=== PATIENT | female | born 1940 | race Caucasian/White ===

== ENCOUNTER 2017-08-06 23:10 | Emergency (ER) | payer OTHER, MEDICARE, SELFPAY ==
[2017-08-06 23:10] VITALS: BP 151/78; PULSE 86; RESP 16; TEMP 36.6; O2SAT 95; BMI 34.2
--- NOTE | 2017-08-06 23:36 | RAD_ITS ---
XR Shoulder Min 2 Views INDICATION: right shoulder pain after fall COMPARISON: None TECHNIQUE: 2 views of the right shoulder FINDINGS: Glenohumeral relationship appears preserved. Degenerative changes are noted at the acromioclavicular joint with osteophyte formation. The clavicle is intact. RAD/Shoulder min 2 Views IMPRESSION: Degenerative changes. No evidence of acute fracture or dislocation. at 0005 Reported and signed by: Karen Shell MD Electronically Signed: Karen Shell MD at 23:04 EST Tel , Service support ,
--- NOTE | 2017-08-06 23:40 | RAD_ITS ---
XR Knee Complete 4 Views or More INDICATION: right knee pain after fall COMPARISON: None TECHNIQUE: 4 views of the right knee FINDINGS: Joint spaces are decreased. Marginal osteophytes are noted. No evidence of fracture or dislocation. RAD/Knee 4 or More Views IMPRESSION: Degenerative changes. No evidence of fracture or dislocation. at 0005 Reported and signed by: Karen Shell MD Electronically Signed: Karen Shell MD at 23:03 EST Tel , Service support ,
--- NOTE | 2017-08-07 00:25 | ED.DCSUM_ITS ---
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 Patient continued to work the next several hours of her shift. She is complaining of mild pain to the right shoulder and anterior right knee. She denies loss of consciousness or headache. She does not take anticoagulants. Physical Examination: Vital signs are gross unremarkable. Head neck examination was no external sign of trauma. Heart is regular rate and rhythm. Lung sounds are clear. Abdomen is soft and nontender. Upper extremity examination reveals mild tenderness throughout the right shoulder region with normal range of motion. There is small abrasion is noted to the posterior shoulder. Strong distal pulses are noted throughout. Lower extremity examination reveals abrasion over the anterior right knee. Full range of motion is noted. No significant effusion is present. Test Results: Right shoulder x-rays reveal degenerative changes. No acute fracture. Right knee x-rays reveal degenerative changes. No fracture. Emergency Department Course and Treatment: Test results were discussed with the patient. She will follow-up with [facility]. Treatment Plan: [] Disposition: Discharge Impression: 1. Mechanical fall 2. Right shoulder contusion 3. Right knee contusion This note was generated with Caipiaobao dictation software. It may contain incorrect words, spelling, and punctuation that were not noted in review of the chart prior to signing ED Disposition - Plan for ED Patient: Disposition: Home or Assisted Living Chief Complaint: Fall Instructions: ED Contusion Lower Ext, ED Mechanical Fall, ED Contusion Shoulder Referrals: [facility] [GROUP OF PHYSICIANS] - 3-5 Days
--- NOTE | 2017-08-07 00:25 | ED.DEP ---
ED Disposition - Plan for ED Patient: Disposition: Home or Assisted Living Chief Complaint: Fall Instructions: ED Mechanical Fall, ED Contusion Shoulder, ED Contusion Lower Ext Referrals: [facility] [GROUP OF PHYSICIANS] - 3-5 Days
[2017-08-07 00:53] VITALS: BP 177/81; PULSE 64; RESP 16; O2SAT 95
== END 2017-08-07 00:53 | disposition home or self-care (01) ==
PROVIDERS: Emergency Provider Emergency Medicine; Family Provider Internal Medicine; PCP Internal Medicine
DX: S40.011A Contusion of right shoulder, initial encounter (principal); S80.01XA Contusion of right knee, initial encounter; W18.09XA Striking against other object with subsequent fall, initial encounter; Y93.89 Activity, other specified; Y92.238 Other place in hospital as the place of occurrence of the external cause; Y99.0 Civilian activity done for income or pay; Z79.899 Other long term (current) drug therapy
CPT/HCPCS: 73030; 73564; 99282

== ENCOUNTER → 2018-11-01 10:20 | Outpatient (CLI) | payer MEDICARE, OTHER, SELFPAY ==
[2018-10-19 15:25] VITALS: BMI 34.2
[2018-11-01 12:35] LABS: Absolute Lymphocyte Count 1.82 X10^3/ul (0.83-4.51); Absolute Neutrophil Count 3.4 X10^3/uL (2.0-7.7); Basophil# 0.03 X10^3/uL; Basophil% 0.5 % (0-1); Eosinophil# 0.08 X10^3/uL; Eosinophils% 1.4 % (0-5); Hematocrit 40.7 % (37-47); Hemoglobin 13.1 g/dl (12.0-15.0); Lymphocyte # 1.82 X10^3/ul (4.0); Mean Corp Hgb Conc 32.2 g/gl (32-36); Mean Corpuscular Hgb 28.6 pg (27.0-32.0); Mean Corpuscular Volume 88.9 fL (81-99); Mean Platelet Vol. 10.6 fl (6.2-12.0); Monocyte# 0.55 X10^3/uL; Monocyte% 9.4 % (0-10); Neutrophil # 3.39 X10^3/uL (2.7-7.7); Neutrophil % 57.7 % (47-70); Platelet Count 235 K/mm3 (150-450); RBC Distribution Width CV 14.8 % (11.6-14.6); RBC Distribution Width SD 47.9 fl (35.1-43.9); Red Blood Count 4.58 M/mm3 (4.2-5.4); White Blood Count 5.9 K/mm3 (4.4-11.0)
[2018-11-01 12:44] LABS: POSITIVE COUNT NO; POSITIVE DIFFERENTIAL NO; POSITIVE MORPHOLOGY NO
[2018-11-01 12:54] LABS: ALB/GLOB Ratio 0.9 RATIO (0.9-2.4); AST(SGOT) 16 U/L (15-37); Alanine Aminotransfer ALT/SGPT 22 U/L (13-56); Albumin, Serum 3.4 g/dL (3.2-5.0); Alkaline Phosphatase 72 U/L (45-117); Anion Gap 9 (5-15); BUN 21 mg/dL (7-18); BUN/Creat Ratio 22.3 RATIO (10-20); Chloride 108 mmol/L (98-107); Cholesterol 181 mg/dL (200); Creatinine, Serum 0.94 mg/dL (0.55-1.02); EST Glomerular Filtration Rate 61 mL/min (>60); Est Glom Filt Rate - Afr Amer 74 mL/min (>60); Globulin 3.7 g/dL (2.2-4.2); Glucose 98 mg/dL (74-106); High Density Lipoprotein 62 mg/dL; Potassium 4.5 mmol/L (3.5-5.1); Protein, Total 7.1 g/dL (6.4-8.2); Sodium Level 143 mmol/L (136-145); Triglycerides 71 mg/dL; Very Low Density Lipoprotein 14 mg/dL (5-40)
== END ==
PROVIDERS: Family Provider Internal Medicine; PCP Internal Medicine; Visit Provider Internal Medicine
DX: I10 Essential (primary) hypertension (principal)
CPT/HCPCS: 36415; 80053; 80061; 85025

== ENCOUNTER → 2019-05-22 15:48 | Outpatient (CLI) | payer MEDICARE, OTHER, SELFPAY ==
[2018-11-28 15:02] VITALS: BMI 34.2
--- NOTE | 2019-05-22 15:52 | BI_ITS ---
MAMMOGRAPHY - BILATERAL SCREENING REASON FOR EXAM: Female, 78 years old. Routine annual screening examination. PERTINENT HISTORY: Non-contributory. TECHNIQUE: Digital bilateral breast mirna (3D mammographic acquisition) in the CC and MLO projections. 2-D mediolateral oblique (MLO) and craniocaudad (CC) views of both breasts were obtained. CAD: Full Field Digital Mammography with Computer Added Detection was performed. COMPARISON: No comparison mammograms available at this time. If any prior films become available, an addendum to this report can be generated. FINDINGS: Breast Composition: There are scattered areas of fibroglandular density. There are no dominant masses or suspicious calcifications. No other significant abnormalities are identified. BI/SCREEN MAMM (CAD) W/MIRNA BILAT IMPRESSION: Negative screening mammogram. Yearly followup mammogram recommended. (A) ASSESSMENT CATEGORY: BIRADS Category 1: Negative. A letter regarding these results will be sent to the patient by the facility within 30 days. Approximately 10% of breast cancers are not detected by mammography. A normal mammogram should not delay biopsy of a clinically suspicious abnormality. [id number] Electronically Signed: Faheem Ron, at 8:31 EST , Service support ,
== END ==
PROVIDERS: Family Provider Internal Medicine; PCP Internal Medicine; Referring Provider Internal Medicine; Visit Provider Internal Medicine
DX: Z12.31 Encounter for screening mammogram for malignant neoplasm of breast (principal)
CPT/HCPCS: 77063; 77067

== ENCOUNTER 2022-07-31 01:43 | Emergency (ER) | payer MEDICARE, SELFPAY ==
[2022-07-31 01:44] VITALS: BP 169/119; PULSE 75; RESP 18; TEMP 36.7; O2SAT 97; BMI 35.3
[2022-07-31 01:53] VITALS: BP 169/85
--- NOTE | 2022-07-31 02:00 | RAD_ITS ---
STUDY: X-RAY - LEFT ANKLE REASON FOR EXAM: Female, 81 years old. ? Osteomyelitis TECHNIQUE: 3 view(s) of the ankle. COMPARISON: None. FINDINGS: Normal visualized distal tibia and fibula. Normal medial and lateral malleoli. Normal tibiotalar articulation and ankle mortise. Normal visualized talus and calcaneus. The visualized subtalar, talonavicular, calcaneocuboid and tarsal articulations are normal. There is marked soft tissue swelling suggesting edema. RAD/Ankle min 3 Views IMPRESSION: There is marked soft tissue swelling suggesting edema. Electronically Signed: Dante Solorzano MD at 3:02 EST ,
[2022-07-31 02:23] LABS: Absolute Lymphocyte Count 2.01 X10^3/uL (0.83-4.51); Absolute Neutrophil Count 4.1 X10^3/uL (2.0-7.7); Basophil# 0.05 X10^3/uL; Basophil% 0.7 % (0-1); Eosinophil# 0.11 X10^3/uL; Eosinophils% 1.6 % (0-5); Hematocrit 38.5 % (37-47); Hemoglobin 12.5 g/dL (12.0-15.0); Lymphocyte # 2.01 X10^3/ul (0.83-4.51); Lymphocyte % 28.9 % (19-41); Mean Corp Hgb Conc 32.5 g/dL (32-36); Mean Corpuscular Hgb 29.4 pg (27.0-32.0); Mean Corpuscular Volume 90.6 fL (81-99); Mean Platelet Vol. 10.7 fl (6.2-12.0); Monocyte# 0.71 X10^3/uL; Monocyte% 10.2 % (0-10); NRBC Flagged by Analyzer 0 % (0-5); Neutrophil # 4.05 X10^3/uL (2.7-7.7); Neutrophil % 58.3 % (47-70); POSITIVE COUNT YES; Platelet Count 139 K/mm3 (150-450); RBC Distribution Width CV 14.3 % (11.6-14.6); RBC Distribution Width SD 47.3 fl (35.1-43.9); Red Blood Count 4.25 M/mm3 (4.2-5.4)
[2022-07-31 02:25] LABS: Differential Indicated SCAN CRITERIA MET
[2022-07-31 02:28] LABS: Erythrocyte Sedimentation Rate 13 mm/hr (0-30)
[2022-07-31 02:38] LABS: Anion Gap 4 (5-15); BUN 39 mg/dL (7-18); BUN/Creat Ratio 34.8 RATIO (10-20); CRP < 2.90 mg/L (0.0-3.0); Calcium,Total 9.1 mg/dL (8.5-10.1); Chloride 112 mmol/L (98-107); Creatinine, Serum 1.12 mg/dL (0.55-1.02); EST Glomerular Filtration Rate 50 mL/min (>60); Est Glom Filt Rate - Afr Amer 60 mL/min (>60); Estimated Creatinine Clearance 36.88 ml/min; Glucose 110 mg/dL (74-106); Potassium 4.6 mmol/L (3.5-5.1); Sodium Level 141 mmol/L (136-145)
[2022-07-31 02:44] LABS: Differential Comment SCANNED; Platelet Estimate ADEQUATE (ADEQ)
[2022-07-31 03:12] VITALS: PULSE 69; RESP 15; O2SAT 98
--- NOTE | 2022-07-31 03:13 | EDS_ITS ---
HPI History of Present Illness Chief Complaint: Wound Narrative Narrative: Patient is an 81-year-old female with past medical history of hypertension and left ankle ulcer/wound. She states she was seen approximately 2 [facility] on antibiotics for her wound. She states she took those without much symptom improvement. She states that she has been working in her shoes been rubbing against her foot and the area is now painfull. She states she is unsure if the area is reinfected and she is unsure if she also needs referral to wound care secondary to her persistent symptoms. She denies any history of diabetes but because she has concern for recurrent infection presents for evaluation [facility] Medical History (Updated 07/31/22 @ 03:[address] Michael Sánchez, DO) Arthritis Cellulitis of left ankle Hearing loss Infection of stomach Shoulder pain Home Medications naproxen sodium 220 mg tablet (Aleve) 220 mg PO BID PRN 10/20/21 [History Last Taken Unknown] doxycycline monohydrate 100 mg capsule 100 mg PO BID #20 caps 05/11/22 [Rx Last Taken Unknown] Allergy/AdvReac Type Severity Reaction Status Date / Time latex Allergy Mild unknown Verified 10/20/21 14:43 Family History Brother Cancer Sister Cancer Other Heart disease Surgical History H/O hysterectomy for benign disease History of partial hysterectomy Social History Smoking Status: Never smoker alcohol intake: never substance use type: does not use what type of physical activity do you participate in: other details: dancing and active job ROS ROS ED Constitutional Constitutional ED: Denies chills or fever(s) ENT ENT ED: Denies sore throat Cardiovascular Cardiovascular: Denies chest pain Respiratory/Chest Respiratory/Chest: Denies cough or dyspnea Gastrointestinal Gastrointestinal: Denies abdominal pain, diarrhea, nausea or vomiting Genitourinary Genitourinary ED: Denies dysuria Musculoskeletal Musculoskeletal: Reports other Details: Positive left ankle wound/pain Integumentary Reports other Details: Positive ankle wound ; Denies rash Neurologic Neurologic: Denies headache(s) Hematologic/Lymphatic Hematologic/Lymphatic: Denies easy bleeding or easy bruising EXAM Physical Exam Const Vital Signs: 07/31/22 01:44 07/31/22 01:53 Temperature 98.0 F Temperature Source Temporal Pulse Rate 75 Respiratory Rate 18 Blood Pressure 169/119 H 169/85 H Blood Pressure Mean 135 113 Pulse Ox 97 Oxygen Delivery Method Room Air Positive well nourished, well developed and obese General Appearance ED: well developed Nutritional Appearance: obese Eyes PERRL and EOMs intact bilaterally Neck supple Resp normal respiratory effort and clear to auscultation bilaterally Cardio regular rate and regular rhythm Extremity Extremity Narrative: Left lower extremity is neurovascularly intact. Patient does have mild soft tissue swelling of the left distal lower leg which she states is chronic in nature. There is hemosiderin deposition present as well and 2 ulcers noted. The most distal ulcer along the medial aspect of the distal tibia is approximately 1 x 1 cm in size and dermal layer deep without discharge or secondary changes to suggest infection. There is a punctate proximal ulcer roughly 5 cm proximal from the larger distal ulcer. This also has no active discharge drainage or signs of secondary infection. There is no surrounding erythema or warmth no lymphangitic streaking or crepitance palpated. The capillary refill is approximately 3 seconds of the left foot while it is under 1 second in the right. There are no ulcers noted along the right leg as well. The capillary refill is technically normal in the left foot but as it is diminished from the right this does indicate venous stasis or lack of oxygen as a cause of the ulceration Neuro oriented x3 and CN's II-XII intact bilaterally Sensorium / Orientation: alert Psych mental status grossly normal Skin Skin Narrative: Soft tissue changes to the left lower leg as documented above MDM MDM MDM Narrative Medical decision making narrative: Patient presented to the ER hypertensive but has a history of this and otherwise stable vitals. Her physical exam shows no signs of arterial occlusion but there is slightly decreased capillary refill of the left compared to right and patient has soft tissue swelling hemosiderin deposition consistent with chronic stasis changes indicating decreased blood flow to the left lower leg. As cap refill is technically normal and there is no signs of ischemia I doubt patient has an arterial occlusion and she was no physical exam findings to suggest DVT. There is no crepitance or erythema or warmth and therefore my concern for osteomyelitis cellulitis or necrotizing fasciitis is low as well. As patient has concern for infection I checked basic laboratory studies as well as an x- ray. Labs showed no leukocytosis or elevation to the CRP or ESR going against infectious process. X-ray showed no free air or bony destruction to suggest infection. Therefore patient will be referred to wound care as well as podiatry and is otherwise safe for discharge Lab Data Attestation: I reviewed the patient's lab results. Labs: Laboratory Results - last 24 hr 07/31/22 07/31/22 02:15 02:15 WBC 7.0 RBC 4.25 Hgb 12.5 Hct 38.5 MCV 90.6 MCH 29.4 MCHC 32.5 RDW Std Deviation 47.3 H RDW Coeff of David 14.3 Plt Count 139 L MPV 10.7 Immature Gran % (Auto) 0.300 Neut % (Auto) 58.3 Lymph % (Auto) 28.9 [place] % (Auto) 10.2 H Eos % (Auto) 1.6 Baso % (Auto) 0.7 Absolute Neuts (auto) 4.1 Absolute Lymphs (auto) 2.01 Nucleated RBC % 0 Differential Comment SCANNED Platelet Estimate ADEQUATE ESR 13 Sodium 141 Potassium 4.6 Chloride 112 H Carbon Dioxide 25.0 Anion Gap 4 L BUN 39 H Creatinine 1.12 H Estim Creat Clear Calc 36.88 Est GFR (MDRD) Af Amer 60 Est GFR (MDRD) Non-Af 50 L BUN/Creatinine Ratio 34.8 H Glucose 110 H Calcium 9.1 C-React Prot Ext Range < 2.90 Radiography Diagnostic Testing: Clinical Impression(s) from Imaging Studies Ankle X-Ray 07/31/22 02:00 IMPRESSION: There is marked soft tissue swelling suggesting edema. Electronically Signed: Dante Solorzano MD at 3:02 EST , X-ray of the left ankle as interpreted by the emergency medicine physician shows soft tissue swelling without free air or bony destruction to suggest osteomyelitis or fracture Discharge Plan Triage Chief Complaint: Wound ED Provider: Michael Sánchez Dx/Rx/DC Orders Clinical Impression: Venous stasis ulcer of ankle, Hypertension Instructions: Wound Care Prescriptions: No Action naproxen sodium [Aleve] 220 mg tablet 220 mg PO BID PRN doxycycline monohydrate 100 mg capsule 100 mg PO BID Qty: 20 0RF Other Ambulatory Orders: Wound Care Referral (Routine) Timeframe: 1 Week Facility: [facility] - Location[facility] Ordered By: Dr. Michael Sánchez Primary Care Provider: Tracey Smith Referrals: Tracey Smith MD [Primary Care Provider] - Vinay Weiss DPM [Med Staff - Active Staff] - Activity Restrictions/Additional Instructions: Please contact Dr. Weiss/podiatry to discuss further treatment options for your venous stasis ulcer. You have also been given a referral for [facility]. Please continue to wrap the wound as shown in the ER and return to the ER should you have any further concerns Disposition Disposition: Home, Self Care
[2022-07-31 03:28] LABS: Lactic Acid 0.4 mmol/L (0.4-1.9)
== END 2022-07-31 03:29 | disposition home or self-care (01) ==
PROVIDERS: Emergency Provider Emergency Medicine; PCP Internal Medicine; Visit Provider Emergency Medicine
DX: L97.309 Non-pressure chronic ulcer of unspecified ankle with unspecified severity (principal); I87.2 Venous insufficiency (chronic) (peripheral); I10 Essential (primary) hypertension; E66.9 Obesity, unspecified
CPT/HCPCS: 73610; 80048; 83605; 85025; 85652; 86140; 99282; A4216

== ENCOUNTER 2022-08-11 17:10 | Emergency (ER) | payer MEDICARE, SELFPAY ==
[2022-08-11 17:14] VITALS: BP 113/91; PULSE 102; RESP 14; TEMP 36.1; O2SAT 96; BMI 34.8
[2022-08-11] MEDS: Diphth,Pertuss(Acell),Tet Vac 0.5 ML Vial IM (20:29)
--- NOTE | 2022-08-11 20:42 | RAD_ITS ---
EXAM: XR RIGHT FINGERS, 2 OR MORE VIEWS CLINICAL INDICATION: Injury/Pain -- Long finger PIP joint TECHNIQUE: Frontal, lateral and oblique views of the fingers of the right hand. This report was created using [employer] report [employer]ov[employer] technology. COMPARISON: None. FINDINGS: BONES/JOINTS: Unremarkable. No acute fracture. No subluxation. Normal alignment. Preservation of the joint space. No sclerotic or destructive changes observed. SOFT TISSUES: Soft tissue swelling along the 3rd PIP joint dorsally. Within the soft tissue, there is a 1.3mm dense foreign body. RAD/Finger(s) Min 2 Views IMPRESSION: Soft tissue swelling along the 3rd PIP joint dorsally. Within the soft tissue, there is a 1.3mm dense foreign body. Electronically Signed: Imer Delaney MD at 21:01 EST ,
--- NOTE | 2022-08-11 22:53 | EDS_ITS ---
HPI History of Present Illness Chief Complaint: Laceration Detail of Chief Complaint: Injury right long finger Informant: patient Occured/Mechanism Mechanism/Context: Yes same level fall Comment: Fell coming to work. She landed on her right hand. She sustained laceration proximal to the PIP joint. Onset/Context/Timing Context: Sudden Onset Timing: - (No pain) Current Severity: Mild Maximum Severity: Mild Worsened by: Nothing Relieved by: Nothing Associated Symptoms Associated Symptoms: Negative for Parasthesia, Weakness or Loss of Funtion Narrative Narrative: Patient is an 81-year-old [id number] woman who was entering the building for work. Prior to checking in she fell. She sustained laceration proximal to the PIP joint of her right long finger. She is right-hand dominant. Tetanus is greater than 10 years. She is not on an anticoagulant. She denies allergies to antibiotics. She denies head trauma. She denies loss of conscious. Denies neck pain. Denies paresthesia, anesthesia or motor despair she denied cardiac respiratory symptoms. Denies history of black or maroon- colored stool. Tetanus Immunization: >10 years Prior similar symptoms: No Recent Illness/Hospitalization: No PFSH PFS Medical History Arthritis Cellulitis of left ankle Hearing loss Infection of stomach Shoulder pain Home Medications naproxen sodium 220 mg tablet (Aleve) 220 mg PO BID PRN 10/20/21 [History Last Taken Unknown] doxycycline monohydrate 100 mg capsule 100 mg PO BID #20 caps 05/11/22 [Rx Last Taken Unknown] cephalexin 500 mg capsule 500 mg PO Q12 #6 CAPSULES 08/11/22 [Rx Last Taken Unknown] Allergy/AdvReac Type Severity Reaction Status Date / Time latex Allergy Mild unknown Verified 08/11/22 17:14 Family History Brother Cancer Sister Cancer Other Heart disease Surgical History H/O hysterectomy for benign disease History of partial hysterectomy Social History Smoking Status: Never smoker alcohol intake: never substance use type: does not use what type of physical activity do you participate in: other details: dancing and active job ROS ROS ED Constitutional Constitutional ED: Denies chills, fever(s), subjective, sweats or weight loss Eyes Eyes: Denies blurry vision, change in vision or diplopia Cardiovascular Cardiovascular: Denies chest pain, palpitations or racing heartbeat Respiratory/Chest Respiratory/Chest: Denies cough, dyspnea or dyspnea on exertion Gastrointestinal Gastrointestinal: Denies melena, nausea or vomiting Musculoskeletal Musculoskeletal: Denies back pain, myalgias or neck pain Integumentary Reports other Details: Laceration proximal PIP joint right long finger Neurologic Neurologic: Denies paresthesias or weakness Hematologic/Lymphatic Hematologic/Lymphatic: Denies easy bleeding or easy bruising EXAM Physical Exam Const Vital Signs: 08/11/22 17:14 Temperature 97 F L Temperature Source Temporal Pulse Rate 102 H Respiratory Rate 14 Blood Pressure 113/91 H Blood Pressure Mean 98 Pulse Ox 96 Oxygen Delivery Method Room Air Positive well nourished, well developed and obese General Appearance ED: well developed and NAD; Negative for cyanotic or diaphoretic Nutritional Appearance: obese HEENT Reports moist mucous membranes HEENT Narrative: DoneEars normal. No evidence of facial trauma. No trauma. No septal deviation hematoma. normocephalic and atraumatic Eyes PERRL and EOMs intact bilaterally Eyes Narrative: No subconjunctival hemorrhage. Resp normal respiratory effort and clear to auscultation bilaterally Cardio regular rate, regular rhythm, S1 normal heart sound, S2 normal heart sound and no murmurs Extremity Negative for normal to inspection Extremity Narrative: 2 cm laceration right long finger. The extensor mechanism is intact. The flexor digitorum superficialis and flexor digitorum profundus are intact. Cap refill is normal. Two-point discrimination is normal. There is no self Duncan noted. Neuro oriented x3, CN's II-XII intact bilaterally, moves all extremities, no focal motor deficits and no sensory deficits noted Sensorium / Orientation: alert Psych mental status grossly normal Skin Skin Narrative: Laceration 2.0 cm right long finger MDM MDM MDM Narrative Medical decision making narrative: Will obtain x-ray to evaluate for foreign body and fracture since she has pain over the PIP joint. Tetanus was updated. After digit was anesthetized the wound was explored. There is no foreign body seen. Presumed removed with irrigation by nursing staff. The extensor commonest tendon was noted. The digit was placed through full extension and flexion. There is no evidence of injury or laceration to the tendon. The wound was explored completely and there was no foreign body noted. Three-view x-ray of the finger was obtained. There is no evidence of fracture. There was a 1 mm foreign body noted. Since the tendon sheath was violated but not the tendon we will treat with 3-day course of cephalexin. Please see procedure note Radiography Diagnostic Testing: Clinical Impression(s) from Imaging Studies Finger X-Ray 08/11/22 20:42 IMPRESSION: Soft tissue swelling along the 3rd PIP joint dorsally. Within the soft tissue, there is a 1.3mm dense foreign body. Electronically Signed: Imer Delaney MD at 21:01 EST , Procedures Other Procedures Procedure(s): Laceration was Nestabs by local infiltration. Wound was i rrigated. As previously scribed wound was explored no foreign body noted. The laceration was closed using 5-0 Ethilon. A total of 5 simple interrupted sutures was placed. Patient tolerated the procedure. She received her first dose of cephalexin in the emergency department. Discharge Plan Triage Chief Complaint: Laceration ED Provider: Shilo Walden Dx/Rx/DC Orders Clinical Impression: Laceration of right middle finger with foreign body w/o damage to nail, Injury due to fall Instructions: ED Laceration, Hand: All Closures Prescriptions: New cephalexin [cephalexin] 500 mg capsule 500 mg PO Q12 Qty: 6 0RF No Action naproxen sodium [Aleve] 220 mg tablet 220 mg PO BID PRN doxycycline monohydrate 100 mg capsule 100 mg PO BID Qty: 20 0RF Primary Care Provider: Tracey Smith Referrals: Tracey Smith MD [Primary Care Provider] - 2 Days for wound check Activity Restrictions/Additional Instructions: 1. Keep finger clean and dry. 2. Take antibiotic until gone 3. Sutures to be removed in 10 to 14 days. Disposition Disposition: Home, Self Care
[2022-08-11] MEDS: Cephalexin 250 MG Capsule 500 MG PO (23:10)
== END 2022-08-11 23:14 | disposition home or self-care (01) ==
PROVIDERS: Emergency Provider Emergency Medicine; PCP Internal Medicine; Visit Provider Emergency Medicine
DX: S61.222A Laceration with foreign body of right middle finger without damage to nail, initial encounter (principal); W18.30XA Fall on same level, unspecified, initial encounter; E66.9 Obesity, unspecified; Z68.34 Body mass index [BMI] 34.0-34.9, adult; Z23 Encounter for immunization
CPT/HCPCS: 12001; 73140; 90471; 90715; 99284

== ENCOUNTER 2022-08-19 16:27 | Emergency (ER) | payer MEDICARE, SELFPAY ==
[2022-08-19 16:28] VITALS: BP 160/99; BP 164/109; PULSE 90; PULSE 99; RESP 16; RESP 18; TEMP 35.8; O2SAT 99; BMI 34.8
[2022-08-19] MEDS: APIXABAN 5 MG TABLET 10 MG PO (20:27)
--- NOTE | 2022-08-19 22:41 | EX.ED.DYSGE1 ---
HPI History of Present Illness Chief Complaint: General Illness Narrative Narrative: 81-year-old female presenting with diagnosis of right gastroc DVT. Patient had ultrasound today ordered by Dr. Weiss. She sees him at wound care. Patient states that she has had poor blood flow to her feet. She has had imaging done of her vessels previously but not a DVT study. No history of DVT. PFSH PFSH Medical History Arthritis Cellulitis of left ankle Hearing loss Infection of stomach Shoulder pain Home Medications apixaban 5 mg (74 tabs) tablets in a dose pack (Eliquis DVT-PE Treat 30D Start) 5 mg PO BID #74 tabs 08/19/22 [Rx Last Taken Unknown] Allergy/AdvReac Type Severity Reaction Status Date / Time latex Allergy Mild unknown Verified 08/19/22 16:28 Family History Brother Cancer Sister Cancer Other Heart disease Surgical History H/O hysterectomy for benign disease History of partial hysterectomy Social History Smoking Status: Never smoker alcohol intake: never substance use type: does not use what type of physical activity do you participate in: other details: dancing and active job ROS ROS ED Review of Systems ROS Unobtainable: Denies due to encephalopathy Constitutional Constitutional ED: Denies chills or fever(s) Eyes Eyes: Denies change in vision ENT ENT ED: Denies rhinorrhea or sore throat Cardiovascular Cardiovascular: Denies chest pain or palpitations Respiratory/Chest Respiratory/Chest: Denies cough or dyspnea Gastrointestinal Gastrointestinal: Denies abdominal pain or constipation Genitourinary Genitourinary ED: Denies dysuria or hematuria Musculoskeletal Musculoskeletal: Denies arthralgias Integumentary Denies abscess or Abrasions Neurologic Neurologic: Denies headache(s) EXAM Physical Exam Const Vital Signs: 08/19/22 16:28 08/19/22 19:28 08/19/22 16:28 Temperature 96.5 F L Temperature Source Temporal Pulse Rate 99 90 Respiratory Rate 18 16 Respiratory Effort Normal Non-Labored Respiratory Pattern Normal Blood Pressure 164/109 H 160/99 H Blood Pressure Mean 127 119 Pulse Ox 99 99 Oxygen Delivery Method Room Air Room Air General Appearance ED: Negative for pallor HEENT Reports normocephalic, head/scalp atraumatic and moist mucous membranes Eyes PERRL and EOMs intact bilaterally Neck no lymphadenopathy and supple Chest Wall inspection of chest normal and palpation of chest normal Resp normal respiratory effort and clear to auscultation bilaterally Auscultation: Negative for rales, rhonchi or wheezes Cardio regular rate and regular rhythm GI normal to inspection, nondistended, normoactive bowel sounds and non-distended Auscultation: normoactive bowel sounds Palpation: soft Narrative: Deferred Back/Spine no CVA tenderness General Back: Negative for CVA tenderness Cervical Spine: Negative for cervical spine tenderness Extremity Extremity Narrative: Right calf tenderness General Extremety ED: Yes tenderness Neuro oriented x3 and CN's II-XII intact bilaterally Sensorium / Orientation: alert Motor Exam: strength 5/5 throughout Psych mental status grossly normal Attitude: No agitated Skin General Skin Exam: Negative for jaundice or pallor MDM MDM MDM Narrative Medical decision making narrative: Patient diagnosed with right DVT in the gastrocnemius. I spoke with Dr. Weiss and he did recommend putting her on Eliquis. He will follow-up with her in wound care clinic. Discussed risk and benefits of Eliquis at length with the patient. She acknowledged understanding. She was given first dose in the ER. She was given a starter pack. Discharged in stable condition. Impression: 1. Right gastroc DVT Lab Data Attestation: I reviewed the patient's lab results. Discharge Plan Triage Chief Complaint: General Illness ED Provider: Inderjit Hoffmann Dx/Rx/DC Orders Instructions: ED Deep Vein Thrombosis (DVT), Blood Thinner Pills: Your Guide to Using them Safely Prescriptions: New Eliquis DVT-PE Treat 30D Start 5 mg (74 tabs) tablets,dose pack 5 mg PO BID Qty: 74 0RF Stand Alone Forms: ED Work / School Excuse Primary Care Provider: Tracey Smith Referrals: Tracey Smith MD [Primary Care Provider] - Vinay Weiss DPM [Med Staff - Active Staff] - 3-5 Days Disposition Disposition: Home, Self Care Discharge Date/Time: 08/19/22 20:31
== END 2022-08-19 20:31 | disposition home or self-care (01) ==
PROVIDERS: Emergency Provider Student in an Organized Health Care Education/Training Program; PCP Internal Medicine; Visit Provider Student in an Organized Health Care Education/Training Program
DX: I82.462 Acute embolism and thrombosis of left calf muscular vein (principal); L97.222 Non-pressure chronic ulcer of left calf with fat layer exposed; L97.322 Non-pressure chronic ulcer of left ankle with fat layer exposed; I83.022 Varicose veins of left lower extremity with ulcer of calf; R60.0 Localized edema; I87.2 Venous insufficiency (chronic) (peripheral); S61.401D Unspecified open wound of right hand, subsequent encounter; W19.XXXD Unspecified fall, subsequent encounter; Z79.01 Long term (current) use of anticoagulants
CPT/HCPCS: 93923; 93970; 99283

== ENCOUNTER → 2022-09-01 | Outpatient (CLI) | payer MEDICARE, SELFPAY ==
--- NOTE | 2022-09-01 12:31 | EKG12_ITS ---
Test Reason : ARRHYTHMIA Blood Pressure : / mmHG Vent. Rate : 091 BPM Atrial Rate : 234 BPM P-R Int : 000 ms QRS Dur : 088 ms QT Int : 360 ms P-R-T Axes : 000 002 033 degrees QTc Int : 442 ms Atrial fibrillation Septal infarct , age undetermined Abnormal ECG Confirmed by ADRIÁN GUAMAN, MILLY ([id number]), medical editor EDWARD ZHOU ([id number]) on 09/02/2022 8:58:09 AM Referred By: ANNETTE Confirmed By:MILLY SAMPSON MD
== END | disposition home or self-care (01) ==
LOC: PSN 12:29
PROVIDERS: PCP Internal Medicine; Visit Provider Internal Medicine
DX: I49.9 Cardiac arrhythmia, unspecified (principal)
CPT/HCPCS: 93005

== ENCOUNTER 2022-09-03 08:15 | Outpatient (RCR) | payer MEDICARE, SELFPAY ==
[2022-08-13 08:20] VITALS: BP 155/87; PULSE 97; TEMP 36.3
--- NOTE | 2022-08-13 09:05 | HP.PCM_ITS ---
History of Present Illness Date of Service: 08/13/22 Chief Complaint: Left lower extremity ulceration x2 History of Wound: Patient is an 81-year-old female who presents to the wound care center with chronic ulceration x2 to the left lower extremity. She states she became very itchy on the inside of the left ankle and scratched creating 2 ulcerative wounds in April 2022. She reported to the ED soon after and was diagnosed with cellulitis and treated with oral antibiotics. She states that over the next few months the wounds however failed to progress in healing. She did fall recently and went to the [facility] ED for stitches in the right hand where she also had her wounds evaluated. ED physician notes chronic venous stasis with normal capillary fill time, however capillary fill time is diminished from previous visit in April. She has been applying bacitracin to the wounds however has not been wearing compression stockings. She continues to work and is on her feet for most of the day. She states when she comes home her legs are swollen and the ulcerative sites ache. [facility]LY [facility] Medical History Arthritis Cellulitis of left ankle Hearing loss Infection of stomach Shoulder pain Home Medications naproxen sodium 220 mg tablet (Aleve) 220 mg PO BID PRN 10/20/21 [History Last Taken Unknown] Allergy/AdvReac Type Severity Reaction Status Date / Time latex Allergy Mild unknown Verified 08/11/22 17:14 Family History Brother Cancer Sister Cancer Other Heart disease Surgical History H/O hysterectomy for benign disease History of partial hysterectomy Social History Smoking Status: Never smoker alcohol intake: never substance use type: does not use what type of physical activity do you participate in: other details: dancing and active job Vital Signs Vital Signs Vital Signs: 08/13/22 08:20 Temperature 97.3 F L Temperature Source Temporal Pulse Rate 97 Blood Pressure 155/87 H Blood Pressure Mean 109 Blood Pressure Source Monitor Physical Exam Const alert, oriented x3 and no apparent distress General Appearance: cooperative HEENT normocephalic Eyes General Eye: normal appearance of both eyes Neck General: normal visual inspection Lymph Lymphatic: no lymphadenopathy noted and no lymphedema noted Resp normal respiratory effort Cardio regular rate and regular rhythm Extremity normal capillary refill, no joint enlargement and no calf tenderness Extremity Narrative: Left lower extremity: DP and PT pulses are palpable. CFT less than 5 seconds to the digits. Normal temperature gradient. Hair growth absent to the digits/foot. There is varicosities noted to the left lower extremity, periankle, and dorsal foot. +3 pitting edema noted. Ulceration noted to the medial ankle overlying the region of the great saphenous vein. There is hemosiderin deposition to the medial aspect of the leg consistent with venous stasis dermatitis. Right lower extremity: DP and PT pulses are palpable. CFT less than 5 seconds to the digits. Normal temperature gradient. Hair growth is absent to the digits/foot. There is varicosities noted to the right lower extremity, periankle, and dorsal foot. +1 pitting edema noted Skin no rashes or lesions noted, skin turgor normal and no jaundice Wound Narrative: Left lower extremity ulceration x2. Proximal medial ulceration is noted with healthy granular base. No signs of infection. Distal medial ulceration is noted overlying the region of the great saphenous vein with mixed fibrogranular base. No signs of infection. There is a little localized rubor noted about the ulcerative sites however there is no increased temperature noted. No purulent drainage, no malodor, no palpable fluctuance/bogginess noted. Neuro moves all extremities Debridement Note Debridement Note Wound debrided: Left lower extremity x2 Laterality: Left Wound Grade/Stage: Blue stage I Type of Debridement: Excisional debridement Anesthesia Used: 5% Lidocaine Gel Depth: Down to and including healthy tissue and in the subcutaneous layer Percentage of wound debrided: 100 Instrument Used: 3mm curette Tissue Removed: Fibrous, devitalized subcutaneous, biofilm, slough Severity: Fat Layer Exposed Amount of bleeding with debridement: Mild Bleeding Controlled with: Compression and gauze Patient tolerated procedure: Patient tolerated procedure well Post-Debridement Measurements and Additional Note: Post-Debridement Measurements/Treatment JORGE - Nurse 1 - General Ulcer Assessment Start: 08/13/22 08:18 Freq: Status: Active Protocol: GERALD Activity Type Activity Date Activity User E-sign Co-sign Detail Recorded Client Recorded Date Recorded By Document 08/13/22 08:20 AK [id number] 08/13/22 08:26 AK 08/13/22 08:20 WC - Today's Visit Information Type of service Initial Visit Arrival Mode Ambulatory Patient Identification Verified (Name & Yes ) Patient Requires Transmission-Based No Precautions Safety Precautions NA Vital Signs Temperature (97.8 F-99.1 F) 97.3 F L Temperature Source Temporal Pulse Rate (60-100) 97 Pulse Location Monitor Blood Pressure (90/60-120/80) 155/87 H Blood Pressure Mean 109 Source Monitor History Since Last Visit- (Skip if this is Patient's initial visit) Left Footwear Regular Shoe Right Footwear Regular Shoe Pain Scale: 0-10 Numeric Is Patient Pain Free? No WC - Nurse 1 - General Ulcer Measurement Start: 08/13/22 08:18 Freq: Status: Active Protocol: Activity Type Activity Date Activity User E-sign Co-sign Detail Recorded Client Recorded Date Recorded By Document 08/13/22 08:20 MD [id number] 08/13/22 08:26 MD 08/13/22 08:20 Wound Center Nurse 1 #2 Left medial LE -Combined with other wound No -Current Size (cm) - Length 0.7 -Current Size (cm) - Width 0.5 -Current Size (cm) - Depth 0.1 -Total Square Cm 0.35 -Date of Last Picture (Recall this 08/13/22 field) -Photo Taken Yes -Tunneling No -Undermining/Tunneling No -Circular Undermining No -Change in Wound Grade/Stage No -Exudate Amt Medium -Exudate Type Serosanguineous -Wound Margin Distinct, Outline Attached -Granulation Amt Medium (34-66%) -Granulation Quality [place] -Slough/Fibrin Yes -Necrosis Amt Medium (34-66%) -Necrotic Tissue Type Adherent Slough -Structure Exposed N/A -Texture (Cristina-wound Skin Appearance) No Abnormality, Assessed -Moisture (Cristina-wound Skin Appearance) No Abnormality, Assessed -Color (Cristina-wound Skin Appearance) No Abnormality, Assessed -Temperature (Cristina-wound Skin No Abnormality Appearance) (Pt Warm) -Tenderness on Palpation (Cristina-wound No Skin Appearance) -Ulcer Cleansing Rinsed/ Irrigated with Saline -Foul Odor after Cleansing No -Anesthetic Used 5% Lidocaine Gel #1 Left medial ankle -Current Size (cm) - Length 1.7 -Current Size (cm) - Width 1.5 -Current Size (cm) - Depth 0.1 -Total Square Cm 2.55 -Date of Last Picture (Recall this 08/13/22 field) -Photo Taken Yes -Tunneling No -Undermining/Tunneling No -Circular Undermining No -Change in Wound Grade/Stage No -Exudate Amt Medium -Exudate Type Serosanguineous -Wound Margin Distinct, Outline Attached -Granulation Amt Medium (34-66%) -Granulation Quality [place],Red -Slough/Fibrin Yes -Necrosis Amt Medium (34-66%) -Necrotic Tissue Type Adherent Slough -Structure Exposed N/A -Texture (Cristina-wound Skin Appearance) No Abnormality, Assessed -Moisture (Cristina-wound Skin Appearance) No Abnormality, Assessed -Color (Cristina-wound Skin Appearance) No Abnormality, Assessed -Temperature (Cristina-wound Skin No Abnormality Appearance) (Pt Warm) -Tenderness on Palpation (Cristina-wound No Skin Appearance) -Ulcer Cleansing Rinsed/ Irrigated with Saline -Foul Odor after Cleansing No -Anesthetic Used 5% Lidocaine Gel Lower Limb Edema Present No Right Calf (cm) 37.5 Right Ankle (cm) 25.1 Left Calf (cm) 36.8 Left Ankle (cm) 26.7 Assessment/Plan Assessment/Plan (1) Bilateral edema of lower extremity: CODE(S): R60.0 - Localized edema (2) Venous insufficiency (chronic) (peripheral): CODE(S): I87.2 - Venous insufficiency (chronic) (peripheral) (3) Non-pressure chronic ulcer of left calf with fat layer exposed: CODE(S): L97.222 - Non-pressure chronic ulcer of left calf with fat layer exposed PLAN: Plan Patient seen and evaluated Ulceration to the distal aspect of the left lower extremity x2 was debrided as noted in the clinical panel above. Ulcerative sites demonstrates no erythema, no lymphangitic streaking, no purulent drainage, no malodor, no palpable fluctuance/bogginess noted. Proximal medial ulceration measures 0.6 cm x 0.5 cm x 0.2 cm in the distal medial malleoli are ulceration measures 1.6 cm x 1.5 cm x 0.2 cm. Collagen powder and PHMB dressing applied to the ulcerative sites. She is instructed to change these dressings daily. Tubigrip compression stocking applied to the left lower extremity to aid in edema control. I discussed continued application of Tubigrip compression stocking and ultimately transition to knee-high compression stocking of 20 to 30 mmHg to aid in her edema control. She is instructed to elevate the lower extremities at all times of rest. I discussed with her that reduction of the edema is essential in her healing process. Due to her diminished capillary fill time over the last few months LEAS was ordered today due 08/13/22 along with venous studies of bilateral lower extremities. Awaiting results. Encouraged adequate protein intake and collagen supplement Gregory to aid in her healing. I discussed with her today signs and symptoms of infection to continue to observe. She was instructed that if she notices any increasing redness about the ulcerative sites that moves up the leg, from the wounds, increased foul odor from the wounds purulent drainage, or if she experiences fever greater than 101 degree, or any nausea, vomiting, or chills that these are signs of a progressing infection and she is to report to the ED. She voices understanding of this discussion today. Dressing: Collagen powder PHMB dressing with Tubigrip Wash: Soap and water, pat dry Tissue growth optimization: Collagen powder PHMB dressing Offload: Tubigrip compression stocking, elevating bilateral lower extremities. She is to ensure she does not rest the left lower extremity against the right lower extremity to prevent continued pressure during sleeping Vascular: DP and PT pulses palpable. CFT less than 5 seconds to the digits. I have ordered lower extremity arterial and venous studies. Edema: Tubigrip compression stocking, elevating bilateral lower extremities at all times at rest Infection: No signs of infection Pain: May take [id number] Tylenol for discomfort Host factors: Chronic venous stasis with palpable varicosities to the lower extremity and foot, edema. I answered all the patient's questions. To return to the wound healing center in 1 week or call sooner if the patient has any questions or concerns. Note: [employer] speech recognition rejogger software was used to create portions of this document. Sound-alike and misspelled words, as well as other rejogger errors may be contained in the documentation. The problems addressed require a low medical decision making level which includes two or more minor problems, a stable chronic illness, or an acute uncomplicated illness or injury. The medical decision making level is low. There is noted low risk of morbidity after considering this treatment plan and diagnostic data.
--- NOTE | 2022-08-19 14:19 | VDLE_ITS ---
Reason For Study: LE Wound RIGHT LEFT CFV is compressible, spontaneous, phasic, CFV is compressible, spontaneous, phasic, competent and demonstrates normal competent, and demonstrates normal augmentation. augmentation. FV is compressible, spontaneous, phasic, FV is compressible, spontaneous, phasic, competent and demonstrates normal competent and demonstrates normal augmentation. augmentation. POP V is compressible, spontaneous, phasic, POP V is compressible, spontaneous, phasic, competent and demonstrates normal competent and demonstrates normal augmentation. augmentation. T/P Trunk is compressible. T/P Trunk is compressible. PTV is compressible. PTV is compressible. RT PerV is compressible. LT PerV is compressible. RT Gastrocnemius Vein is dilated and SFJ is INCOMPETENT and measures 0.80 x 0.89 noncompressible with no flow seen in color or cm. pulsed wave doppler. GSV proximal thigh measures 0.76 x 0.82 cm. INCOMPETENT Performator Vein with a reflux of GSV at knee measures 0.63 x 0.60 cm. > 0.5 seconds noted at mid calf. GSV INCOMPETENT throughout for greater than SFJ is competent and measures 0.53 x 0.51 cm. 0.5 seconds. GSV proximal thigh measures 0.42 x 0.43 cm. SSV proximal calf is INCOMPETENT for greater GSV at knee measures 0.43 x 0.48 cm. than 0.5 seconds and measures 0.16 x 0.14 GSV INCOMPETENT throughout for greater than cm. 0.5 seconds. SSV proximal calf is competent and measures 0.50 x 0.56 cm. Procedure Exam performed in department. The exam was diagnostic. A preliminary report was called and/or faxed to Dr. Weiss [facility]. VL/Venous Duplex US - Otto Extrem Interpretation Summary Acute deep vein thrombosis is noted in the right gastrocnemius vein. The remain daniel of the right lower extremity deep venous system is patent and compressible. Deep veins of th e left lower extremity are patent and compressible segmentally. There is no evidence of left lower extremity deep vein thrombosis. Valvular competence appears intact within the proximal deep ve nous systems bilaterally. The great saphenous veins appear bilaterally patent and compressib le segmentally. The right sapheno-femoral junction is competent . The left sapheno-femoral junction is incompetent . Segmental valvular incompetence is noted within the great saphenous veins bilat erally. The right small saphenous vein is patent and competent. The left small saphenous vein is patent and incompetent. An incompetent senior web developer vein is noted in the right mid-calf. Ordering Physician: Vinay Weiss Referring Physician: Tracey Smith Performed By: Al Castro RVT
--- NOTE | 2022-08-19 14:19 | ART_ITS ---
Reason For Study: LE Wound Procedure A bilateral lower extremity continuous wave Doppler with analog waveform analysis,segmental pressures,and ankle brachial indexes without exercise. Left Segmental Pressures Left brachial= 137mmHg. Left posterior tibial artery = 178mmHg. Left dorsalis pedis artery = 167mmHg. Left digit = 141 mmHg. The left posterior tibial artery waveforms are triphasic. The left dorsalis pedis waveforms are triphasic. Right Segmental Pressures Right brachial= 145mmHg. Right posterior tibial artery = 170mmHg. Right dorsalis pedis artery = 170mmHg. Right digit = 135 mmHg. The right posterior tibial artery waveforms are triphasic. The right dorsalis pedis waveforms are biphasic. Indices The right ankle brachial index by the posterior tibial artery is 1.17. The right ankle brachial index by the dorsalis pedis is 1.17. The right digital-brachial index is 0.93. The left ankle brachial index by the posterior tibial artery is 1.23. The left ankle brachial index by the dorsalis pedis is 1.15. The left digital-brachial index is 0.97. VL/Lower Ext Art Exam w/o Exercis Interpretation Summary Triphasic and biphasic Doppler waveforms are noted at ankle level on the right. Triphasic Doppler waveforms are noted at ankle level on the left. Pulse-volume recordings appear satisfactory at ankle and digital level bilaterally. Resting ankle-brachial indices are normal bilate rally. Digital- brachial indices are normal bilaterally. There is no evidence of significant arterial occlusive disease in the lower ext remities bilaterally. Ordering Physician: Vinay Weiss Referring Physician: Tracey Smith Performed By: Al Castro RVT
[2022-08-20 08:26] VITALS: BP 162/80; PULSE 106; RESP 18; TEMP 35.6
--- NOTE | 2022-08-20 08:56 | PN.PCM_ITS ---
History of Present Illness Date of Service: 08/20/22 Chief Complaint: Left lower extremity ulceration x2 History of Wound: Patient is an 81-year-old female who presents to the wound care center with chronic ulceration x2 to the left lower extremity. She states she became very itchy on the inside of the left ankle and scratched creating 2 ulcerative wounds in April 2022. She reported to the ED soon after and was diagnosed with cellulitis and treated with oral antibiotics. She states that over the next few months the wounds however failed to progress in healing. She did fall recently and went to the [facility] ED for stitches in the right hand where she also had her wounds evaluated. ED physician notes chronic venous stasis with normal capillary fill time, however capillary fill time is diminished from previous visit in April. She has been applying bacitracin to the wounds however has not been wearing compression stockings. She continues to work and is on her feet for most of the day. She states when she comes home her legs are swollen and the ulcerative sites ache. Subjective Subjective This is an 81-year-old female seen for follow-up in the wound care center today for left lower extremity ulceration secondary to chronic venous stasis. She was treated in the ED last night for confirmed DVT post vascular studies. Patient started on Eliquis. Currently denies calf pain. She denies any constitutional symptoms. She has no further complaints. Objective Data Objective Data Vital Signs: Vital Signs Temp Pulse Resp BP 96.1 F L 106 H 18 162/80 H 08/20/22 08:26 08/20/22 08:26 08/20/22 08:26 08/20/22 08:26 Radiography Diagnostic Testing: Radiology Impression Extremity Arterial Study 08/19/22 14:19 Interpretation Summary Triphasic and biphasic Doppler waveforms are noted at ankle level on the right. Triphasic Doppler waveforms are noted at ankle level on the left. Pulse-volume recordings appear satisfactory at ankle and digital level bilaterally. Resting ankle-brachial indices are normal bilaterally. Digital- brachial indices are normal bilaterally. There is no evidence of significant arterial occlusive disease in the lower extremities bilaterally. Ordering Physician: Vinay Weiss Referring Physician: Tracey Smith Performed By: Al Castro RVT Venous Doppler Study 08/19/22 14:19 Interpretation Summary Acute deep vein thrombosis is noted in the right gastrocnemius vein. The remainder of the right lower extremity deep venous system is patent and compressible. Deep veins of the left lower extremity are patent and compressible segmentally. There is no evidence of left lower extremity deep vein thrombosis. Valvular competence appears intact within the proximal deep venous systems bilaterally. The great saphenous veins appear bilaterally patent and compressible segmentally. The right sapheno-femoral junction is competent . The left sapheno-femoral junction is incompetent . Segmental valvular incompetence is noted within the great saphenous veins bilaterally. The right small saphenous vein is patent and competent. The left small saphenous vein is patent and incompetent. 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 Ordering Physician: Vinay Weiss Referring Physician: Tracey Smith Performed By: Al Castro RVT Physical Exam Const alert, oriented x3 and no apparent distress General Appearance: cooperative HEENT normocephalic Eyes General Eye: normal appearance of both eyes Neck General: normal visual inspection Lymph Lymphatic: no lymphadenopathy noted and no lymphedema noted Resp normal respiratory effort Cardio regular rate and regular rhythm Extremity normal capillary refill, no joint enlargement and no calf tenderness Extremity Narrative: Left lower extremity: DP and PT pulses are palpable. CFT less than 5 seconds to the digits. Normal temperature gradient. Hair growth absent to the digits/foot. There is varicosities noted to the left lower extremity, periankle, and dorsal foot. +3 pitting edema noted. Ulceration noted to the medial ankle overlying the region of the great saphenous vein. There is hemosiderin deposition to the medial aspect of the leg consistent with venous stasis dermatitis. Right lower extremity: DP and PT pulses are palpable. CFT less than 5 seconds to the digits. Normal temperature gradient. Hair growth is absent to the digits/foot. There is varicosities noted to the right lower extremity, periankle, and dorsal foot. +1 pitting edema noted Skin no rashes or lesions noted, skin turgor normal and no jaundice Wound Narrative: Left lower extremity ulceration x2. Proximal medial ulceration is noted with healthy granular base. No signs of infection. Distal medial ulceration is noted overlying the region of the great saphenous vein with mixed fibrogranular base. No signs of infection. There is a little localized rubor noted about the ulcerative sites however there is no increased temperature noted. No purulent drainage, no malodor, no palpable fluctuance/bogginess noted. Neuro moves all extremities Debridement Note Debridement Note Wound debrided: Left lower extremity x 2 Laterality: Left Wound Grade/Stage: Blue stage I Type of Debridement: Excisional debridement Anesthesia Used: 5% Lidocaine Gel Depth: Down to and including healthy tissue and in the subcutaneous layer Percentage of wound debrided: 100 Instrument Used: 3mm curette Tissue Removed: Fibrous, devitalized subcutaneous, biofilm, slough Severity: Fat Layer Exposed Amount of bleeding with debridement: Mild Bleeding Controlled with: Compression and gauze Patient tolerated procedure: Patient tolerated procedure well Post-Debridement Measurements and Additional Note: Post-Debridement Measurements/Treatment - Nurse 1 - General Ulcer Assessment Start: 08/13/22 08:18 Freq: Status: Active Protocol: GERALD Activity Type Activity Date Activity User E-sign Co-sign Detail Recorded Client Recorded Date Recorded By Document 08/13/22 08:20 AK [id number] 08/13/22 08:26 AK Document 08/20/22 08:26 CICI [id number] 08/20/22 08:32 CICI 08/13/22 08/20/22 08:20 08:26 - Today's Visit Information Type of service Initial Visit Follow-up Visit (Physician/[facility] ) Arrival Mode Ambulatory Ambulatory Patient Identification Verified (Name & Yes Yes ) Patient Requires Transmission-Based No No Precautions Safety Precautions NA Vital Signs Temperature (97.8 F-99.1 F) 97.3 F L 96.1 F L Temperature Source Temporal Temporal Pulse Rate (60-100) 97 106 H Pulse Location Monitor Monitor Respiratory Rate (12-18) 18 Respiratory rate source Observation Blood Pressure (90/60-120/80) 155/87 H 162/80 H Blood Pressure Mean (mm Hg) 109 107 Source Monitor Monitor Position Semi-Fowlers Blood Pressure Location Right Arm History Since Last Visit- (Skip if this is Patient's initial visit) Have you changed medications since your Yes last visit? Any new allergies or adverse reactions No Had a fall/change in ADL's that may No increase risk of falls Signs or symptoms of abuse and/or No neglect since last visit Have you been in the hospital since your No last visit? Has dressing in place as prescribed Yes Has compression in place as prescribed Yes Has offloadiing in place as prescribed N/A Experienced any changes in pain level or No management Left Footwear Regular Shoe Regular Shoe Right Footwear Regular Shoe Regular Shoe Pain Scale: 0-10 Numeric Is Patient Pain Free? No Yes WC - Nurse 1 - General Ulcer Measurement Start: 08/13/22 08:18 Freq: Status: Active Protocol: Activity Type Activity Date Activity User E-sign Co-sign Detail Recorded Client Recorded Date Recorded By Document 08/13/22 08:20 AK [id number] 08/13/22 08:26 AK Document 08/20/22 08:26 [id number] 08/20/22 08:32 JF 08/13/22 08/20/22 08:20 08:26 Wound Center Nurse 1 #2 Left medial LE Distal -Combined with other wound No No -Current Size (cm) - Length 0.7 1.5 -Current Size (cm) - Width 0.5 1.0 -Current Size (cm) - Depth 0.1 0.2 -Total Square Cm 0.35 1.50 -Date of Last Picture (Recall this 08/13/22 field) -Photo Taken Yes Yes -Epithelialization Medium 34-66% -Tunneling No No -Undermining/Tunneling No No -Circular Undermining No No -Change in Wound Grade/Stage No -Exudate Amt Medium Medium -Exudate Type Serosanguineous Serosanguineous -Wound Margin Distinct, Flat & Intact Outline Attached -Granulation Amt Medium (34-66%) Medium (34-66%) -Granulation Quality [place] Red -Slough/Fibrin Yes Yes -Necrosis Amt Medium (34-66%) Small (1-33%) -Necrotic Tissue Type Adherent Slough Adherent Slough -Structure Exposed N/A N/A -Texture (Cristina-wound Skin Appearance) No Abnormality, Assessed, Assessed Localized Edema -Moisture (Cristina-wound Skin Appearance) No Abnormality, Assessed,Dry/ Assessed Scaly -Color (Cristina-wound Skin Appearance) No Abnormality, Assessed Assessed -Temperature (Cristina-wound Skin No Abnormality No Abnormality Appearance) (Pt Warm) (Pt Warm) -Tenderness on Palpation (Cristina-wound No No Skin Appearance) -Ulcer Cleansing Rinsed/ Wound Cleanser Irrigated with Saline -Foul Odor after Cleansing No No -Anesthetic Used 5% Lidocaine 5% Lidocaine Gel Gel #1 Left medial ankle -Combined with other wound No -Current Size (cm) - Length 1.7 1.5 -Current Size (cm) - Width 1.5 1 -Current Size (cm) - Depth 0.1 0.2 -Total Square Cm 2.55 1.5 -Date of Last Picture (Recall this 08/13/22 field) -Photo Taken Yes Yes -Epithelialization Small 1-33% -Tunneling No No -Undermining/Tunneling No No -Circular Undermining No No -Change in Wound Grade/Stage No -Exudate Amt Medium Small -Exudate Type Serosanguineous Serosanguineous -Wound Margin Distinct, Flat & Intact Outline Attached -Granulation Amt Medium (34-66%) Medium (34-66%) -Granulation Quality [place],Red Red -Slough/Fibrin Yes Yes -Necrosis Amt Medium (34-66%) Small (1-33%) -Necrotic Tissue Type Adherent Slough Adherent Slough -Structure Exposed N/A N/A -Texture (Cristina-wound Skin Appearance) No Abnormality, Assessed, Assessed Localized Edema -Moisture (Cristina-wound Skin Appearance) No Abnormality, Assessed,Dry/ Assessed Scaly -Color (Cristina-wound Skin Appearance) No Abnormality, Assessed, Assessed Hemosiderin Staining -Temperature (Cristina-wound Skin No Abnormality No Abnormality Appearance) (Pt Warm) (Pt Warm) -Tenderness on Palpation (Cristina-wound No No Skin Appearance) -Ulcer Cleansing Rinsed/ Wound Cleanser Irrigated with Saline -Foul Odor after Cleansing No No -Anesthetic Used 5% Lidocaine 5% Lidocaine Gel Gel Lower Limb Edema Present No Yes Right Calf (cm) 37.5 37.0 Right Ankle (cm) 25.1 27.0 Left Calf (cm) 36.8 Left Ankle (cm) 26.7 WC - Nurse 2 - General Ulcer CM Notes Start: 08/13/22 08:18 Freq: Status: Active Protocol: Activity Type Activity Date Activity User E-sign Co-sign Detail Recorded Client Recorded Date Recorded By Document 08/13/22 11:38 PL [id number] 08/13/22 11:41 PL 08/13/22 11:38 Wound Center Nurse 2 #2 Left medial LE Distal -Time 08:40 -Correct Patient Yes -Correct Side, Site, Position Yes -Correct Procedure Yes -Procedure Performed Yes -Type of Procedure Debridement -Clinical Debridement Subcutaneous -Tissue Removed Subcutaneous -Post Debridement (cm) - Length 1.6 -Post Debridement (cm) - Width 1.5 -Post Debridement (cm) - Depth 0.2 -Total Square (Post) (cm) 2.40 -Area of Debridement (cm) - Length 1.6 -Area of Debridement (cm) - Width 0.5 -Total Square (Area) (cm) 0.80 -Tunneling No -Undermining/Tunneling No -Circular Undermining No -Wound/Ulcer Outcome Not Healed -Ulcer Cleansing Rinsed/ Irrigated with Saline -Foul Odor after Cleansing No -Bioengineered Tissue No -Debridement - Subq, 1st 20sq cm No #1 Left medial ankle -Time 08:40 -Correct Patient Yes -Correct Side, Site, Position Yes -Correct Procedure Yes -Procedure Performed Yes -Type of Procedure Debridement -Clinical Debridement Subcutaneous -Tissue Removed Subcutaneous -Post Debridement (cm) - Length 0.6 -Post Debridement (cm) - Width 0.5 -Post Debridement (cm) - Depth 0.2 -Total Square (Post) (cm) 0.30 -Area of Debridement (cm) - Length 0.6 -Area of Debridement (cm) - Width 0.5 -Total Square (Area) (cm) 0.30 -Tunneling No -Undermining/Tunneling No -Circular Undermining No -Wound/Ulcer Outcome Not Healed -Ulcer Cleansing Rinsed/ Irrigated with Saline -Foul Odor after Cleansing No -Bioengineered Tissue No -Bleeding Controlled with Pressure -Treatment Response Procedure Tolerated Well -Debridement - Subq, 1st 20sq cm Yes Pain Scale: 0-10 Numeric Is Patient Pain Free? Yes Assessment/Plan Assessment/Plan (1) Bilateral edema of lower extremity: CODE(S): R60.0 - Localized edema (2) Venous insufficiency (chronic) (peripheral): CODE(S): I87.2 - Venous insufficiency (chronic) (peripheral) (3) Non-pressure chronic ulcer of left calf with fat layer exposed: CODE(S): L97.222 - Non-pressure chronic ulcer of left calf with fat layer exposed PLAN: Plan Patient seen and evaluated Ulceration to the distal aspect of the left lower extremity x2 was debrided as noted in the clinical panel above. Ulcerative sites demonstrates no erythema, no lymphangitic streaking, no purulent drainage, no malodor, no palpable fluctuance/bogginess noted. Proximal medial ulceration measures 0.5 cm x 0.4 cm x 0.2 cm in the distal medial malleoli are ulceration measures 1.5 cm x 1.2 cm x 0.2 cm. Collagen powder and PHMB dressing applied to the proximal ulcerative site. Hydrogel with collagen powder applied to distal ulcerative site with PHMB dressing. She is instructed to change these dressings daily. Tubigrip compression stocking applied to the left lower extremity to aid in edema control. I discussed continued application of Tubigrip compression stocking and ultimately transition to knee-high compression stocking of 20 to 30 mmHg to aid in her edema control. She is instructed to elevate the lower extremities at all times of rest. I discussed with her that reduction of the edema is essential in her healing process. Due to her diminished capillary fill time over the last few months LEAS was ordered today due 08/13/22 along with venous studies of bilateral lower extremities. LEAS demonstrates Triphasic and Biphasic Doppler at Right ankle and Biphasic Doppler at Left ankle. Digital incidices normal. Normal PVR. Venous studies demonstrated DVT of Left lower extremity. She was started on Eliquis. Encouraged adequate protein intake and collagen supplement Gregory to aid in her healing. I discussed with her today signs and symptoms of infection to continue to observe. She was instructed that if she notices any increasing redness about the ulcerative sites that moves up the leg, from the wounds, increased foul odor from the wounds purulent drainage, or if she experiences fever greater than 101 degree, or any nausea, vomiting, or chills that these are signs of a progressing infection and she is to report to the ED. She voices understanding of this discussion today. Dressing: Collagen powder PHMB dressing with Tubigrip Wash: Soap and water, pat dry Tissue growth optimization: Collagen powder PHMB dressing Offload: Tubigrip compression stocking, elevating bilateral lower extremities. She is to ensure she does not rest the left lower extremity against the right lower extremity to prevent continued pressure during sleeping Vascular: DP and PT pulses palpable. CFT less than 5 seconds to the digits. LEAS demonstrates no arterial disease. Edema: Tubigrip compression stocking, elevating bilateral lower extremities at all times at rest Infection: No signs of infection Pain: May take [id number] Tylenol for discomfort Host factors: Chronic venous stasis with palpable varicosities to the lower extremity and foot, edema. I answered all the patient's questions. To return to the wound healing center in 1 week or call sooner if the patient has any questions or concerns. Note: [employer] speech recognition officer lieutenant software was used to create portions of this document. Sound-alike and misspelled words, as well as other officer lieutenant errors may be contained in the documentation.
--- NOTE | 2022-08-27 08:28 | PCM.WC.PN ---
History of Present Illness Date of Service: 08/27/22 Chief Complaint: Left lower extremity ulceration x2 History of Wound: Patient is an 81-year-old female who presents to the wound care center with chronic ulceration x2 to the left lower extremity. She states she became very itchy on the inside of the left ankle and scratched creating 2 ulcerative wounds in April 2022. She reported to the ED soon after and was diagnosed with cellulitis and treated with oral antibiotics. She states that over the next few months the wounds however failed to progress in healing. She did fall recently and went to the [facility] ED for stitches in the right hand where she also had her wounds evaluated. ED physician notes chronic venous stasis with normal capillary fill time, however capillary fill time is diminished from previous visit in April. She has been applying bacitracin to the wounds however has not been wearing compression stockings. She continues to work and is on her feet for most of the day. She states when she comes home her legs are swollen and the ulcerative sites ache. Subjective Subjective This is an 81-year-old female seen for follow-up in the wound care center today for left lower extremity ulceration secondary to chronic venous stasis.? She was treated in the ED for confirmed DVT post vascular studies.? Patient was started on Eliquis.? Currently denies calf pain.? She denies any constitutional symptoms.? She has no further complaints. Objective Data Objective Data Vital Signs: Vital Signs Temp Pulse Resp BP 96.1 F L 106 H 18 162/80 H 08/20/22 08:26 08/20/22 08:26 08/20/22 08:26 08/20/22 08:26 Physical Exam Const alert, oriented x3 and no apparent distress General Appearance: cooperative HEENT normocephalic Eyes General Eye: normal appearance of both eyes Neck General: normal visual inspection Lymph Lymphatic: no lymphadenopathy noted and no lymphedema noted Resp normal respiratory effort Cardio regular rate and regular rhythm Extremity normal capillary refill, no joint enlargement and no calf tenderness Extremity Narrative: Left lower extremity: DP and PT pulses are palpable. CFT less than 5 seconds to the digits. Normal temperature gradient. Hair growth absent to the digits/foot. There is varicosities noted to the left lower extremity, periankle, and dorsal foot. +3 pitting edema noted. Ulceration noted to the medial ankle overlying the region of the great saphenous vein. There is hemosiderin deposition to the medial aspect of the leg consistent with venous stasis dermatitis. Right lower extremity: DP and PT pulses are palpable. CFT less than 5 seconds to the digits. Normal temperature gradient. Hair growth is absent to the digits/foot. There is varicosities noted to the right lower extremity, periankle, and dorsal foot. +1 pitting edema noted Skin no rashes or lesions noted, skin turgor normal and no jaundice Wound Narrative: Left lower extremity ulceration x2. Proximal medial ulceration is noted with healthy granular base. No signs of infection. Distal medial ulceration is noted overlying the region of the great saphenous vein with mixed fibrogranular base. No signs of infection. There is a little localized rubor noted about the ulcerative sites however there is no increased temperature noted. No purulent drainage, no malodor, no palpable fluctuance/bogginess noted. Neuro moves all extremities Debridement Note Debridement Note Wound debrided: Left lower extremity x2 Laterality: Left Wound Grade/Stage: Blue stage I Type of Debridement: Excisional debridement Anesthesia Used: 5% Lidocaine Gel Depth: Down to and including healthy tissue and in the subcutaneous layer Percentage of wound debrided: 100 Instrument Used: 3mm curette Tissue Removed: Fibrous, devitalized subcutaneous, biofilm, slough Severity: Fat Layer Exposed Amount of bleeding with debridement: Mild Bleeding Controlled with: Compression and gauze Patient tolerated procedure: Patient tolerated procedure well Post-Debridement Measurements and Additional Note: Post-Debridement Measurements/Treatment - Nurse 1 - General Ulcer Assessment Start: 08/13/22 08:18 Freq: Status: Active Protocol: GERALD Activity Type Activity Date Activity User E-sign Co-sign Detail Recorded Client Recorded Date Recorded By Document 08/13/22 08:20 AK [id number] 08/13/22 08:26 AK Document 08/20/22 08:26 CICI [id number] 08/20/22 08:32 CICI 08/13/22 08/20/22 08:20 08:26 - Today's Visit Information Type of service Initial Visit Follow-up Visit (Physician/[facility] ) Arrival Mode Ambulatory Ambulatory Patient Identification Verified (Name & Yes Yes ) Patient Requires Transmission-Based No No Precautions Safety Precautions NA Vital Signs Temperature (97.8 F-99.1 F) 97.3 F L 96.1 F L Temperature Source Temporal Temporal Pulse Rate (60-100) 97 106 H Pulse Location Monitor Monitor Respiratory Rate (12-18) 18 Respiratory rate source Observation Blood Pressure (90/60-120/80) 155/87 H 162/80 H Blood Pressure Mean (mm Hg) 109 107 Source Monitor Monitor Position Semi-Fowlers Blood Pressure Location Right Arm History Since Last Visit- (Skip if this is Patient's initial visit) Have you changed medications since your Yes last visit? Any new allergies or adverse reactions No Had a fall/change in ADL's that may No increase risk of falls Signs or symptoms of abuse and/or No neglect since last visit Have you been in the hospital since your No last visit? Has dressing in place as prescribed Yes Has compression in place as prescribed Yes Has offloadiing in place as prescribed N/A Experienced any changes in pain level or No management Left Footwear Regular Shoe Regular Shoe Right Footwear Regular Shoe Regular Shoe Pain Scale: 0-10 Numeric Is Patient Pain Free? No Yes WC - Nurse 1 - General Ulcer Measurement Start: 08/13/22 08:18 Freq: Status: Active Protocol: Activity Type Activity Date Activity User E-sign Co-sign Detail Recorded Client Recorded Date Recorded By Document 08/13/22 08:20 AK [id number] 08/13/22 08:26 AK Document 08/20/22 08:26 [id number] 08/20/22 08:32 JF 08/13/22 08/20/22 08:20 08:26 Wound Center Nurse 1 #2 Left medial LE Distal -Combined with other wound No No -Current Size (cm) - Length 0.7 1.5 -Current Size (cm) - Width 0.5 1.0 -Current Size (cm) - Depth 0.1 0.2 -Total Square Cm 0.35 1.50 -Date of Last Picture (Recall this 08/13/22 field) -Photo Taken Yes Yes -Epithelialization Medium 34-66% -Tunneling No No -Undermining/Tunneling No No -Circular Undermining No No -Change in Wound Grade/Stage No -Exudate Amt Medium Medium -Exudate Type Serosanguineous Serosanguineous -Wound Margin Distinct, Flat & Intact Outline Attached -Granulation Amt Medium (34-66%) Medium (34-66%) -Granulation Quality [place] Red -Slough/Fibrin Yes Yes -Necrosis Amt Medium (34-66%) Small (1-33%) -Necrotic Tissue Type Adherent Slough Adherent Slough -Structure Exposed N/A N/A -Texture (Cristina-wound Skin Appearance) No Abnormality, Assessed, Assessed Localized Edema -Moisture (Cristina-wound Skin Appearance) No Abnormality, Assessed,Dry/ Assessed Scaly -Color (Crsitina-wound Skin Appearance) No Abnormality, Assessed Assessed -Temperature (Cristina-wound Skin No Abnormality No Abnormality Appearance) (Pt Warm) (Pt Warm) -Tenderness on Palpation (Cristina-wound No No Skin Appearance) -Ulcer Cleansing Rinsed/ Wound Cleanser Irrigated with Saline -Foul Odor after Cleansing No No -Anesthetic Used 5% Lidocaine 5% Lidocaine Gel Gel #1 Left medial ankle -Combined with other wound No -Current Size (cm) - Length 1.7 1.5 -Current Size (cm) - Width 1.5 1 -Current Size (cm) - Depth 0.1 0.2 -Total Square Cm 2.55 1.5 -Date of Last Picture (Recall this 08/13/22 field) -Photo Taken Yes Yes -Epithelialization Small 1-33% -Tunneling No No -Undermining/Tunneling No No -Circular Undermining No No -Change in Wound Grade/Stage No -Exudate Amt Medium Small -Exudate Type Serosanguineous Serosanguineous -Wound Margin Distinct, Flat & Intact Outline Attached -Granulation Amt Medium (34-66%) Medium (34-66%) -Granulation [place],Red Red -Slough/Fibrin Yes Yes -Necrosis Amt Medium (34-66%) Small (1-33%) -Necrotic Tissue Type Adherent Slough Adherent Slough -Structure Exposed N/A N/A -Texture (Cristina-wound Skin Appearance) No Abnormality, Assessed, Assessed Localized Edema -Moisture (Cristina-wound Skin Appearance) No Abnormality, Assessed,Dry/ Assessed Scaly -Color (Cristina-wound Skin Appearance) No Abnormality, Assessed, Assessed Hemosiderin Staining -Temperature (Cristina-wound Skin No Abnormality No Abnormality Appearance) (Pt Warm) (Pt Warm) -Tenderness on Palpation (Cristina-wound No No Skin Appearance) -Ulcer Cleansing Rinsed/ Wound Cleanser Irrigated with Saline -Foul Odor after Cleansing No No -Anesthetic Used 5% Lidocaine 5% Lidocaine Gel Gel Lower Limb Edema Present No Yes Right Calf (cm) 37.5 37.0 Right Ankle (cm) 25.1 27.0 Left Calf (cm) 36.8 Left Ankle (cm) 26.7 WC - Nurse 2 - General Ulcer CM Notes Start: 08/13/22 08:18 Freq: Status: Active Protocol: Activity Type Activity Date Activity User E-sign Co-sign Detail Recorded Client Recorded Date Recorded By Document 08/13/22 11:38 PL [id number] 08/13/22 11:41 PL Document 08/20/22 11:53 PL [id number] 08/20/22 11:54 PL 08/13/22 08/20/22 11:38 11:53 Wound Center Nurse 2 #2 Left medial LE Distal -Time 08:40 08:50 -Correct Patient Yes Yes -Correct Side, Site, Position Yes Yes -Correct Procedure Yes Yes -Procedure Performed Yes Yes -Type of Procedure Debridement Debridement -Clinical Debridement Subcutaneous Subcutaneous -Tissue Removed Subcutaneous Subcutaneous -Post Debridement (cm) - Length 1.6 1.5 -Post Debridement (cm) - Width 1.5 1.2 -Post Debridement (cm) - Depth 0.2 0.1 -Total Square (Post) (cm) 2.40 1.80 -Area of Debridement (cm) - Length 1.6 1.5 -Area of Debridement (cm) - Width 0.5 1.2 -Total Square (Area) (cm) 0.80 1.80 -Tunneling No No -Undermining/Tunneling No No -Circular Undermining No No -Wound/Ulcer Outcome Not Healed Not Healed -Ulcer Cleansing Rinsed/ Rinsed/ Irrigated with Irrigated with Saline Saline -Foul Odor after Cleansing No No -Bioengineered Tissue No No -Bleeding Controlled with Pressure -Treatment Response Procedure Tolerated Well -Debridement - Subq, 1st 20sq cm No No #1 Left medial ankle -Time 08:40 08:50 -Correct Patient Yes Yes -Correct Side, Site, Position Yes Yes -Correct Procedure Yes Yes -Procedure Performed Yes Yes -Type of Procedure Debridement Debridement -Clinical Debridement Subcutaneous Subcutaneous -Tissue Removed Subcutaneous Subcutaneous -Post Debridement (cm) - Length 0.6 0.5 -Post Debridement (cm) - Width 0.5 0.4 -Post Debridement (cm) - Depth 0.2 0.1 -Total Square (Post) (cm) 0.30 0.20 -Area of Debridement (cm) - Length 0.6 0.5 -Area of Debridement (cm) - Width 0.5 0.4 -Total Square (Area) (cm) 0.30 0.20 -Tunneling No No -Undermining/Tunneling No No -Circular Undermining No No -Wound/Ulcer Outcome Not Healed Not Healed -Ulcer Cleansing Rinsed/ Rinsed/ Irrigated with Irrigated with Saline Saline -Foul Odor after Cleansing No No -Bioengineered Tissue No No -Bleeding Controlled with Pressure Pressure -Treatment Response Procedure Procedure Tolerated Well Tolerated Well -Debridement - Subq, 1st 20sq cm Yes Yes Pain Scale: 0-10 Numeric Is Patient Pain Free? Yes Yes - Nurse 3 - General Ulcer D/C NN Start: 08/13/22 08:18 Freq: Status: Active Protocol: Activity Type Activity Date Activity User E-sign Co-sign Detail Recorded Client Recorded Date Recorded By Document 08/20/22 09:10 [id number] 08/20/22 09:11 CICI 08/20/22 09:10 Wound Care Center Nurse 3 #2 Left medial LE Distal -Ulcer Cleansing Rinsed/ Irrigated with Saline -Foul Odor after Cleansing No -Primary Dressing Applied C Hydrogel ($) -Primary Dressing Covered/Secured with Dry Gauze & Roll Gauze, Secured with Tape #1 Left medial ankle -Ulcer Cleansing Rinsed/ Irrigated with Saline -Foul Odor after Cleansing No -Primary Dressing Applied Collagen Powder ($) -Other Dressing AMD foam -Primary Dressing Covered/Secured with Secured with Tape Right -Tubular Bandage Single Layer -Size of Tubigrip Used Size D -Size D ($) 1 Left -Tubular Bandage Single Layer -Size of Tubigrip Used Size D -Size D ($) 1 Pain Scale: 0-10 Numeric Is Patient Pain Free? Yes - Visit Discharge Discharge Condition Stable Ambulatory Status Ambulatory Transportation Private Auto Medication Reconcilliation completed & Yes provided to patient/care provider Clinical Summary of Care Provided Yes Assessment/Plan Assessment/Plan (1) Bilateral edema of lower extremity: CODE(S): R60.0 - Localized edema (2) Venous insufficiency (chronic) (peripheral): CODE(S): I87.2 - Venous insufficiency (chronic) (peripheral) (3) Non-pressure chronic ulcer of left calf with fat layer exposed: CODE(S): L97.222 - Non-pressure chronic ulcer of left calf with fat layer exposed PLAN: Plan Patient seen and evaluated Ulceration to the distal aspect of the left lower extremity x2 was debrided as noted in the clinical panel above. Ulcerative sites demonstrates no erythema, no lymphangitic streaking, no purulent drainage, no malodor, no palpable fluctuance/bogginess noted. Proximal medial ulceration measures 0.5 cm x 0.5 cm x 0.2 cm in the distal medial malleoli are ulceration measures 1.6 cm x 1.3 cm x 0.2 cm. Collagen powder and hydrogel applied to the proximal ulcerative site. Hydrogel with collagen powder applied to distal ulcerative site with DSD. She is instructed to change these dressings daily. Tubigrip compression stocking applied to the left lower extremity to aid in edema control. I will look to obtain approval for an advanced wound care product to be applied at next visit. I discussed continued application of Tubigrip compression stocking and ultimately transition to knee-high compression stocking of 20 to 30 mmHg to aid in her edema control. She is instructed to elevate the lower extremities at all times of rest. I discussed with her that reduction of the edema is essential in her healing process. Due to her diminished capillary fill time over the last few months LEAS was ordered today due 08/13/22 along with venous studies of bilateral lower extremities. LEAS demonstrates Triphasic and Biphasic Doppler at Right ankle and Biphasic Doppler at Left ankle. Digital incidices normal. Normal PVR. Venous studies demonstrated DVT of Right lower extremity. She was started on Eliquis. Encouraged adequate protein intake and collagen supplement Gregory to aid in her healing. I discussed with her today signs and symptoms of infection to continue to observe. She was instructed that if she notices any increasing redness about the ulcerative sites that moves up the leg, from the wounds, increased foul odor from the wounds purulent drainage, or if she experiences fever greater than 101 degree, or any nausea, vomiting, or chills that these are signs of a progressing infection and she is to report to the ED. She voices understanding of this discussion today. Dressing: Collagen powder PHMB dressing with Tubigrip Wash: Soap and water, pat dry Tissue growth optimization: Collagen powder PHMB dressing Offload: Tubigrip compression stocking, elevating bilateral lower extremities. She is to ensure she does not rest the left lower extremity against the right lower extremity to prevent continued pressure during sleeping Vascular: DP and PT pulses palpable. CFT less than 5 seconds to the digits. LEAS demonstrates no arterial disease. Edema: Tubigrip compression stocking, elevating bilateral lower extremities at all times at rest Infection: No signs of infection Pain: May take [id number] Tylenol for discomfort Host factors: Chronic venous stasis with palpable varicosities to the lower extremity and foot, edema. I answered all the patient's questions. To return to the wound healing center in 1 week or call sooner if the patient has any questions or concerns. Note: [employer] speech recognition electrical maintenance mechanic software was used to create portions of this document. Sound-alike and misspelled words, as well as other electrical maintenance mechanic errors may be contained in the documentation.
[2022-08-27 08:51] VITALS: BP 145/99; PULSE 101; TEMP 36.2
[2022-09-03 08:29] VITALS: BP 152/90; PULSE 102; RESP 18; TEMP 35.3
--- NOTE | 2022-09-03 08:29 | PN.PCM_ITS ---
History of Present Illness Date of Service: 09/03/22 Chief Complaint: Left lower extremity ulceration x2 History of Wound: Patient is an 81-year-old female who presents to the wound care center with chronic ulceration x2 to the left lower extremity. She states she became very itchy on the inside of the left ankle and scratched creating 2 ulcerative wounds in April 2022. She reported to the ED soon after and was diagnosed with cellulitis and treated with oral antibiotics. She states that over the next few months the wounds however failed to progress in healing. She did fall recently and went to the [facility] ED for stitches in the right hand where she also had her wounds evaluated. ED physician notes chronic venous stasis with normal capillary fill time, however capillary fill time is diminished from previous visit in April. She has been applying bacitracin to the wounds however has not been wearing compression stockings. She continues to work and is on her feet for most of the day. She states when she comes home her legs are swollen and the ulcerative sites ache. Subjective Subjective This is an 82-year-old female seen for follow-up in the wound care center today for left lower extremity ulceration secondary to chronic venous stasis.? She has confirmed DVT and on Eliquis.? Currently denies calf pain. Has been changing dressings to left leg daily. She denies any constitutional symptoms.? She has no further complaints. Objective Data Objective Data Vital Signs: Vital Signs Temp Pulse Resp BP 97.1 F L 101 H 18 145/99 H 08/27/22 08:51 08/27/22 08:51 08/20/22 08:26 08/27/22 08:51 Physical Exam Const alert, oriented x3 and no apparent distress General Appearance: cooperative HEENT normocephalic Eyes General Eye: normal appearance of both eyes Neck General: normal visual inspection Lymph Lymphatic: no lymphadenopathy noted and no lymphedema noted Resp normal respiratory effort Cardio regular rate and regular rhythm Extremity normal capillary refill, no joint enlargement and no calf tenderness Extremity Narrative: Left lower extremity: DP and PT pulses are palpable. CFT less than 5 seconds to the digits. Normal temperature gradient. Hair growth absent to the digits/foot. There is varicosities noted to the left lower extremity, periankle, and dorsal foot. +3 pitting edema noted. Ulceration noted to the medial ankle overlying the region of the great saphenous vein. There is hemosiderin deposition to the medial aspect of the leg consistent with venous stasis dermatitis. Right lower extremity: DP and PT pulses are palpable. CFT less than 5 seconds to the digits. Normal temperature gradient. Hair growth is absent to the digits/foot. There is varicosities noted to the right lower extremity, periankle, and dorsal foot. +1 pitting edema noted Skin no rashes or lesions noted, skin turgor normal and no jaundice Wound Narrative: Left lower extremity ulceration x2. Proximal medial ulceration is noted with healthy granular base. No signs of infection. Distal medial ulceration is noted overlying the region of the great saphenous vein with mixed fibrogranular base. No signs of infection. There is a little localized rubor noted about the ulcerative sites however there is no increased temperature noted. No purulent drainage, no malodor, no palpable fluctuance/bogginess noted. Neuro moves all extremities Debridement Note Debridement Note Wound debrided: Left Lower extremity x 2 Laterality: Left Wound Grade/Stage: Blue state I Type of Debridement: Excisional debridement Anesthesia Used: 5% Lidocaine Gel Depth: Down to and including healthy tissue and in the subcutaneous layer Percentage of wound debrided: 100 Instrument Used: 5mm curette Tissue Removed: fibrous, devitalized subcutaneous, biofilm, slough Severity: Fat Layer Exposed Amount of bleeding with debridement: Mild Bleeding Controlled with: Compression and gauze Patient tolerated procedure: Patient tolerated procedure well Post-Debridement Measurements and Additional Note: Post-Debridement Measurements/Treatment - Nurse 1 - General Ulcer Assessment Start: 08/13/22 08:18 Freq: Status: Active Protocol: GERALD Activity Type Activity Date Activity User E-sign Co-sign Detail Recorded Client Recorded Date Recorded By Document 08/13/22 08:20 IA [id number] 08/13/22 08:26 AK Document 08/20/22 08:26 [id number] 08/20/22 08:32 CICI Document 08/27/22 08:51 IA [id number] 08/27/22 08:54 AK 08/13/22 08/20/22 08/27/22 08:20 08:26 08:51 - Today's Visit Information Type of service Initial Visit Follow-up Visit Follow-up Visit (Physician/CUSTOMER SERVICE ADMINISTRATOR (Physician/CUSTOMER SERVICE ADMINISTRATOR ) ) Arrival Mode Ambulatory Ambulatory Ambulatory Patient Identification Verified (Name & Yes Yes Yes ) Patient Requires Transmission-Based No No No Precautions Safety Precautions NA NA Vital Signs Temperature (97.8 F-99.1 F) 97.3 F L 96.1 F L 97.1 F L Temperature Source Temporal Temporal Temporal Pulse Rate (60-100) 97 106 H 101 H Pulse Location Monitor Monitor Monitor Respiratory Rate (12-18) 18 Respiratory rate source Observation Blood Pressure (90/60-120/80) 155/87 H 162/80 H 145/99 H Blood Pressure Mean (mm Hg) 109 107 114 Source Monitor Monitor Monitor Position Semi-Fowlers Blood Pressure Location Right Arm History Since Last Visit- (Skip if this is Patient's initial visit) Have you changed medications since your Yes No last visit? Any new allergies or adverse reactions No No Had a fall/change in ADL's that may No No increase risk of falls Signs or symptoms of abuse and/or No No neglect since last visit Have you been in the hospital since your No No last visit? Has dressing in place as prescribed Yes Yes Has compression in place as prescribed Yes Yes Has offloadiing in place as prescribed N/A N/A Experienced any changes in pain level or No No management Left Footwear Regular Shoe Regular Shoe Regular Shoe Right Footwear Regular Shoe Regular Shoe Regular Shoe Pain Scale: 0-10 Numeric Is Patient Pain Free? No Yes Yes WC - Nurse 1 - General Ulcer Measurement Start: 08/13/22 08:18 Freq: Status: Active Protocol: Activity Type Activity Date Activity User E-sign Co-sign Detail Recorded Client Recorded Date Recorded By Document 08/13/22 08:20 IA [id number] 08/13/22 08:26 AK Document 08/20/22 08:26 [id number] 08/20/22 08:32 JF Document 08/27/22 08:51 IA [id number] 08/27/22 08:54 AK 08/13/22 08/20/22 08/27/22 08:20 08:26 08:51 Wound Center Nurse 1 #2 Left medial LE Distal -Combined with other wound No No No -Current Size (cm) - Length 0.7 1.5 1.6 -Current Size (cm) - Width 0.5 1.0 1.6 -Current Size (cm) - Depth 0.1 0.2 0.1 -Total Square Cm 0.35 1.50 2.56 -Date of Last Picture (Recall this 08/13/22 field) -Photo Taken Yes Yes Yes -Epithelialization Medium 34-66% -Tunneling No No No -Undermining/Tunneling No No No -Circular Undermining No No No -Change in Wound Grade/Stage No No -Exudate Amt Medium Medium Medium -Exudate Type Serosanguineous Serosanguineous Serosanguineous -Wound Margin Distinct, Flat & Intact Distinct, Outline Outline Attached Attached -Granulation Amt Medium (34-66%) Medium (34-66%) Medium (34-66%) -Granulation Quality [place] Red [place] -Slough/Fibrin Yes Yes Yes -Necrosis Amt Medium (34-66%) Small (1-33%) Medium (34-66%) -Necrotic Tissue Type Adherent Slough Adherent Slough Adherent Slough -Structure Exposed N/A N/A N/A -Texture (Cristina-wound Skin Appearance) No Abnormality, Assessed, No Abnormality, Assessed Localized Edema Assessed -Moisture (Cristina-wound Skin Appearance) No Abnormality, Assessed,Dry/ No Abnormality, Assessed Scaly Assessed -Color (Cristina-wound Skin Appearance) No Abnormality, Assessed No Abnormality, Assessed Assessed -Temperature (Cristina-wound Skin No Abnormality No Abnormality No Abnormality Appearance) (Pt Warm) (Pt Warm) (Pt Warm) -Tenderness on Palpation (Cristina-wound No No No Skin Appearance) -Ulcer Cleansing Rinsed/ Wound Cleanser Rinsed/ Irrigated with Irrigated with Saline Saline -Foul Odor after Cleansing No No No -Anesthetic Used 5% Lidocaine 5% Lidocaine 5% Lidocaine Gel Gel Gel #1 Left medial ankle -Combined with other wound No No -Current Size (cm) - Length 1.7 1.5 0.6 -Current Size (cm) - Width 1.5 1 0.5 -Current Size (cm) - Depth 0.1 0.2 0.1 -Total Square Cm 2.55 1.5 0.30 -Date of Last Picture (Recall this 08/13/22 field) -Photo Taken Yes Yes Yes -Epithelialization Small 1-33% None Present -Tunneling No No No -Undermining/Tunneling No No No -Circular Undermining No No No -Change in Wound Grade/Stage No No -Exudate Amt Medium Small Medium -Exudate Type Serosanguineous Serosanguineous Serosanguineous -Wound Margin Distinct, Flat & Intact Distinct, Outline Outline Attached Attached -Granulation Amt Medium (34-66%) Medium (34-66%) Medium (34-66%) -Granulation Quality [place],Red Red [place] -Slough/Fibrin Yes Yes Yes -Necrosis Amt Medium (34-66%) Small (1-33%) Medium (34-66%) -Necrotic Tissue Type Adherent Slough Adherent Slough Adherent Slough -Structure Exposed N/A N/A N/A -Texture (Cristina-wound Skin Appearance) No Abnormality, Assessed, No Abnormality, Assessed Localized Edema Assessed -Moisture (Cristina-wound Skin Appearance) No Abnormality, Assessed,Dry/ No Abnormality, Assessed Scaly Assessed -Color (Cristina-wound Skin Appearance) No Abnormality, Assessed, No Abnormality, Assessed Hemosiderin Assessed Staining -Temperature (Cristina-wound Skin No Abnormality No Abnormality No Abnormality Appearance) (Pt Warm) (Pt Warm) (Pt Warm) -Tenderness on Palpation (Cristina-wound No No No Skin Appearance) -Ulcer Cleansing Rinsed/ Wound Cleanser Rinsed/ Irrigated with Irrigated with Saline Saline -Foul Odor after Cleansing No No No -Anesthetic Used 5% Lidocaine 5% Lidocaine 5% Lidocaine Gel Gel Gel Lower Limb Edema Present No Yes Right Calf (cm) 37.5 37.0 Right Ankle (cm) 25.1 27.0 Left Calf (cm) 36.8 37 Left Ankle (cm) 26.7 26 WC - Nurse 2 - General Ulcer CM Notes Start: 08/13/22 08:18 Freq: Status: Active Protocol: Activity Type Activity Date Activity User E-sign Co-sign Detail Recorded Client Recorded Date Recorded By Document 08/13/22 11:38 PL [id number] 08/13/22 11:41 PL Document 08/20/22 11:53 PL [id number] 08/20/22 11:54 PL Document 08/27/22 11:50 PL [id number] 08/27/22 11:51 PL 08/13/22 08/20/22 08/27/22 11:38 11:53 11:50 Wound Center Nurse 2 #2 Left medial LE Distal -Time 08:40 08:50 08:56 -Correct Patient Yes Yes Yes -Correct Side, Site, Position Yes Yes Yes -Correct Procedure Yes Yes Yes -Procedure Performed Yes Yes Yes -Type of Procedure Debridement Debridement Debridement -Clinical Debridement Subcutaneous Subcutaneous Subcutaneous -Tissue Removed Subcutaneous Subcutaneous Dermis, Subcutaneous -Post Debridement (cm) - Length 1.6 1.5 1.6 -Post Debridement (cm) - Width 1.5 1.2 1.3 -Post Debridement (cm) - Depth 0.2 0.1 0.1 -Total Square (Post) (cm) 2.40 1.80 2.08 -Area of Debridement (cm) - Length 1.6 1.5 1.6 -Area of Debridement (cm) - Width 0.5 1.2 1.3 -Total Square (Area) (cm) 0.80 1.80 2.08 -Tunneling No No No -Undermining/Tunneling No No No -Circular Undermining No No No -Wound/Ulcer Outcome Not Healed Not Healed Not Healed -Ulcer Cleansing Rinsed/ Rinsed/ Rinsed/ Irrigated with Irrigated with Irrigated with Saline Saline Saline -Foul Odor after Cleansing No No No -Bioengineered Tissue No No No -Bleeding Controlled with Pressure Pressure -Treatment Response Procedure Procedure Tolerated Well Tolerated Well -Debridement - Subq, 1st 20sq cm No No No #1 Left medial ankle -Time 08:40 08:50 08:56 -Correct Patient Yes Yes Yes -Correct Side, Site, Position Yes Yes Yes -Correct Procedure Yes Yes Yes -Procedure Performed Yes Yes Yes -Type of Procedure Debridement Debridement Debridement -Clinical Debridement Subcutaneous Subcutaneous Subcutaneous -Tissue Removed Subcutaneous Subcutaneous Subcutaneous -Post Debridement (cm) - Length 0.6 0.5 0.5 -Post Debridement (cm) - Width 0.5 0.4 0.5 -Post Debridement (cm) - Depth 0.2 0.1 0.1 -Total Square (Post) (cm) 0.30 0.20 0.25 -Area of Debridement (cm) - Length 0.6 0.5 0.5 -Area of Debridement (cm) - Width 0.5 0.4 0.5 -Total Square (Area) (cm) 0.30 0.20 0.25 -Tunneling No No No -Undermining/Tunneling No No No -Circular Undermining No No No -Wound/Ulcer Outcome Not Healed Not Healed Not Healed -Ulcer Cleansing Rinsed/ Rinsed/ Rinsed/ Irrigated with Irrigated with Irrigated with Saline Saline Saline -Foul Odor after Cleansing No No No -Bioengineered Tissue No No No -Bleeding Controlled with Pressure Pressure Pressure -Treatment Response Procedure Procedure Procedure Tolerated Well Tolerated Well Tolerated Well -Debridement - Subq, 1st 20sq cm Yes Yes Yes Pain Scale: 0-10 Numeric Is Patient Pain Free? Yes Yes Yes - Nurse 3 - General Ulcer D/C NN Start: 08/13/22 08:18 Freq: Status: Active Protocol: Activity Type Activity Date Activity User E-sign Co-sign Detail Recorded Client Recorded Date Recorded By Document 08/20/22 09:10 [id number] 08/20/22 09:11 Document 08/27/22 09:18 [id number] 08/27/22 09:19 08/20/22 08/27/22 09:10 09:18 Wound Care Center Nurse 3 #2 Left medial LE Distal -Ulcer Cleansing Rinsed/ Rinsed/ Irrigated with Irrigated with Saline Saline -Foul Odor after Cleansing No No -Primary Dressing Applied C Hydrogel ($) C Hydrogel ($), Collagen Powder ($) -Other Dressing AMD -Primary Dressing Covered/Secured with Dry Gauze & Roll Gauze, Secured with Tape #1 Left medial ankle -Ulcer Cleansing Rinsed/ Rinsed/ Irrigated with Irrigated with Saline Saline -Foul Odor after Cleansing No No -Primary Dressing Applied Collagen Powder C Hydrogel ($), ($) Collagen Powder ($) -Other Dressing AMD foam AMD -Primary Dressing Covered/Secured with Secured with Dry Gauze & Tape Roll Gauze, Secured with Tape Right -Tubular Bandage Single Layer -Size of Tubigrip Used Size D -Size D ($) 1 Left -Tubular Bandage Single Layer Single Layer -Size of Tubigrip Used Size D Size E -Size D ($) 1 -Size E ($) 0 Pain Scale: 0-10 Numeric Is Patient Pain Free? Yes Yes - Visit Discharge Discharge Condition Stable Stable Ambulatory Status Ambulatory Ambulatory Transportation Private Auto Private Auto Medication Reconcilliation completed & Yes Yes provided to patient/care provider Clinical Summary of Care Provided Yes Yes Assessment/Plan Assessment/Plan (1) Bilateral edema of lower extremity: CODE(S): R60.0 - Localized edema (2) Venous insufficiency (chronic) (peripheral): CODE(S): I87.2 - Venous insufficiency (chronic) (peripheral) (3) Non-pressure chronic ulcer of left calf with fat layer exposed: CODE(S): L97.222 - Non-pressure chronic ulcer of left calf with fat layer exposed PLAN: Plan Patient seen and evaluated Ulceration to the distal aspect of the left lower extremity x2 was debrided as noted in the clinical panel above. Ulcerative sites demonstrates no erythema, no lymphangitic streaking, no purulent drainage, no malodor, no palpable fluctuance/bogginess noted. Proximal medial ulceration measures 0.3 cm x 0.3 cm x 0.2 cm in the distal medial malleoli are ulceration measures 1.5 cm x 1.3 cm x 0.1 cm. She has been approved for advanced wound care product. Epi fix graft #1 applied to ulcerative sites and anchored with Adaptic touch and Steri-Strips with dry sterile dressing. She was instructed to not get the site wet and only change outer dressings as needed. Tubigrip compression stocking applied to the left lower extremity to aid in edema control. I discussed continued application of Tubigrip compression stocking and ultimately transition to knee-high compression stocking of 20 to 30 mmHg to aid in her edema control. She is instructed to elevate the lower extremities at all times of rest. I discussed with her that reduction of the edema is essential in her healing process. Due to her diminished capillary fill time over the last few months LEAS was ordered 08/13/22 along with venous studies of bilateral lower extremities. LEAS demonstrates Triphasic and Biphasic Doppler at Right ankle and Biphasic Doppler at Left ankle. Digital incidices normal. Normal PVR. Venous studies demonstrated DVT of Right lower extremity. She was started on Eliquis. Encouraged adequate protein intake and collagen supplement Gregory to aid in her healing. I discussed with her today signs and symptoms of infection to continue to observe. She was instructed that if she notices any increasing redness about the ulcerative sites that moves up the leg, from the wounds, increased foul odor from the wounds purulent drainage, or if she experiences fever greater than 101 degree, or any nausea, vomiting, or chills that these are signs of a progressing infection and she is to report to the ED. She voices understanding of this discussion today. Dressing: EpiFix graft, Adaptic touch, Steri-Strips, DSD with Tubigrip Wash: Do not get wet Tissue growth optimization: EpiFix Offload: Tubigrip compression stocking, elevating bilateral lower extremities. She is to ensure she does not rest the left lower extremity against the right lower extremity to prevent continued pressure during sleeping Vascular: DP and PT pulses palpable. CFT less than 5 seconds to the digits. LEAS demonstrates no arterial disease. Edema: Tubigrip compression stocking, elevating bilateral lower extremities at all times at rest Infection: No signs of infection Pain: May take [id number] Tylenol for discomfort Host factors: Chronic venous stasis with palpable varicosities to the lower extremity and foot, edema. I answered all the patient's questions. To return to the wound healing center in 1 week or call sooner if the patient has any questions or concerns. Note: Storone speech recognition stab setter and driller software was used to create portions of this document. Sound-alike and misspelled words, as well as other stab setter and driller errors may be contained in the documentation.
== END 2022-09-08 23:59 | disposition home or self-care (01) ==
LOC: WC 08:15
PROVIDERS: PCP Internal Medicine; Visit Provider Student in an Organized Health Care Education/Training Program
DX: I83.022 Varicose veins of left lower extremity with ulcer of calf (principal); L97.222 Non-pressure chronic ulcer of left calf with fat layer exposed; L97.322 Non-pressure chronic ulcer of left ankle with fat layer exposed; I82.462 Acute embolism and thrombosis of left calf muscular vein; R60.0 Localized edema; S61.401D Unspecified open wound of right hand, subsequent encounter; W19.XXXD Unspecified fall, subsequent encounter; Z79.01 Long term (current) use of anticoagulants
CPT/HCPCS: 11042; 15271; 93923; 93970; 99213; Q4186; G0463

== ENCOUNTER 2022-10-08 08:15 | Outpatient (RCR) | payer MEDICARE, SELFPAY ==
[2022-09-09 00:08] VITALS: BP 152/90; PULSE 102; RESP 18; TEMP 35.3
[2022-09-10 08:55] VITALS: BP 160/91; PULSE 92; RESP 17; TEMP 35.6
--- NOTE | 2022-09-10 08:56 | PCM.WC.PN ---
History of Present Illness Date of Service: 09/10/22 Chief Complaint: Left lower extremity ulceration x2 History of Wound: Patient is an 81-year-old female who presents to the wound care center with chronic ulceration x2 to the left lower extremity. She states she became very itchy on the inside of the left ankle and scratched creating 2 ulcerative wounds in April 2022. She reported to the ED soon after and was diagnosed with cellulitis and treated with oral antibiotics. She states that over the next few months the wounds however failed to progress in healing. She did fall recently and went to the [facility] ED for stitches in the right hand where she also had her wounds evaluated. ED physician notes chronic venous stasis with normal capillary fill time, however capillary fill time is diminished from previous visit in April. She has been applying bacitracin to the wounds however has not been wearing compression stockings. She continues to work and is on her feet for most of the day. She states when she comes home her legs are swollen and the ulcerative sites ache. Subjective Subjective This is an 82-year-old female seen for follow-up in the wound care center today for left lower extremity ulceration secondary to chronic venous stasis.? She has confirmed DVT and on Eliquis.? Currently denies calf pain. Has been changing dressings to left leg daily. She denies any constitutional symptoms.? She has no further complaints. Objective Data Objective Data Vital Signs: Vital Signs Temp Pulse Resp BP 95.5 F L 102 H 18 152/90 H 09/09/22 00:08 09/09/22 00:08 09/09/22 00:08 09/09/22 00:08 Physical Exam Const alert, oriented x3 and no apparent distress General Appearance: cooperative HEENT normocephalic Eyes General Eye: normal appearance of both eyes Neck General: normal visual inspection Lymph Lymphatic: no lymphadenopathy noted and no lymphedema noted Resp normal respiratory effort Cardio regular rate and regular rhythm Extremity normal capillary refill, no joint enlargement, no calf tenderness and no pedal edema Extremity Narrative: Left lower extremity: DP and PT pulses are palpable.? CFT less than 5 seconds to the digits.? Normal temperature gradient.? Hair growth absent to the digits/foot.? There is varicosities noted to the left lower extremity, periankle, and dorsal foot.? +3 pitting edema - improved.? Ulceration noted to the medial ankle overlying the region of the great saphenous vein.? There is hemosiderin deposition to the medial aspect of the leg consistent with venous stasis dermatitis. Right lower extremity: DP and PT pulses are palpable.? CFT less than 5 seconds to the digits.? Normal temperature gradient.? Hair growth is absent to the digits/foot.? There is varicosities noted to the right lower extremity, periankle, and dorsal foot.? +1 pitting edema noted Skin no rashes or lesions noted, skin turgor normal and no jaundice Wound Narrative: Left lower extremity ulceration x2.? Proximal medial ulceration is noted with healthy granular base.? No signs of infection.? Distal medial ulceration is noted overlying the region of the great saphenous vein with mixed fibrogranular base.? No signs of infection.? There is a little localized rubor noted about the ulcerative sites however there is no increased temperature noted.? No purulent drainage, no malodor, no palpable fluctuance/bogginess noted. Neuro moves all extremities Debridement Note Debridement Note Wound debrided: Left lower extremity x2 Laterality: Left Wound Grade/Stage: Blue stage I Type of Debridement: Excisional debridement Anesthesia Used: 5% Lidocaine Gel Depth: Down to and including healthy tissue and in the subcutaneous layer Percentage of wound debrided: 100 Instrument Used: 5mm curette Tissue Removed: Fibrous, devitalized subcutaneous, biofilm, slough Severity: Fat Layer Exposed Amount of bleeding with debridement: Mild Bleeding Controlled with: Compression and gauze Patient tolerated procedure: Patient tolerated procedure well Assessment/Plan Assessment/Plan (1) Non-pressure chronic ulcer of left calf with fat layer exposed: CODE(S): L97.222 - Non-pressure chronic ulcer of left calf with fat layer exposed (2) Bilateral edema of lower extremity: CODE(S): R60.0 - Localized edema (3) Venous insufficiency (chronic) (peripheral): CODE(S): I87.2 - Venous insufficiency (chronic) (peripheral) PLAN: Plan Patient seen and evaluated Ulceration to the distal aspect of the left lower extremity x2 was debrided as noted in the clinical panel above.? Ulcerative sites demonstrates no erythema, no lymphangitic streaking, no purulent drainage, no malodor, no palpable fluctuance/bogginess noted.? Proximal medial ulceration measures 0.2 cm x 0.1 cm x 0.1 cm in the distal medial malleoli are ulceration measures 1.3 cm x 1.2 cm x 0.1 cm.? She has been approved for advanced wound care product.? Epi fix graft #2 applied to ulcerative sites and anchored with Adaptic touch and Steri-Strips with dry sterile dressing.? She was instructed to not get the site wet and only change outer dressings as needed.? Tubigrip compression stocking applied to the left lower extremity to aid in edema control. Ulcerations demonstrate improvement in size following application of EpiFix graft. I discussed continued application of Tubigrip compression stocking and ultimately transition to knee-high compression stocking of 20 to 30 mmHg to aid in her edema control.? She is instructed to elevate the lower extremities at all times of rest.? I discussed with her that reduction of the edema is essential in her healing process. Due to her diminished capillary fill time over the last few months LEAS was ordered 08/13/22 along with venous studies of bilateral lower extremities. LEAS demonstrates Triphasic and Biphasic Doppler at Right ankle and Biphasic Doppler at Left ankle. Digital incidices normal. Normal PVR. Venous studies demonstrated DVT of Right lower extremity. She was started on Eliquis. Encouraged adequate protein intake and collagen supplement Gregory to aid in her healing. I discussed with her today signs and symptoms of infection to continue to observe.? She was instructed that if she notices any increasing redness about the ulcerative sites that moves up the leg, from the wounds, increased foul odor from the wounds purulent drainage, or if she experiences fever greater than 101 degree, or any nausea, vomiting, or chills that these are signs of a progressing infection and she is to report to the ED.? She voices understanding of this discussion today. Dressing: EpiFix graft, Adaptic touch, Steri-Strips, DSD with Tubigrip Wash: Do not get wet Tissue growth optimization: EpiFix Offload: Tubigrip compression stocking, elevating bilateral lower extremities.? She is to ensure she does not rest the left lower extremity against the right lower extremity to prevent continued pressure during sleeping Vascular: DP and PT pulses palpable.? CFT less than 5 seconds to the digits. LEAS demonstrates no arterial disease. Edema: Tubigrip compression stocking, elevating bilateral lower extremities at all times at rest Infection: No signs of infection Pain: May take [id number] Tylenol for discomfort Host factors: Chronic venous stasis with palpable varicosities to the lower extremity and foot, edema. ? I answered all the patient's questions.? To return to the wound healing center in 1 week or call sooner if the patient has any questions or concerns.
[2022-09-17 08:29] VITALS: BP 155/95; PULSE 101; TEMP 36.2
--- NOTE | 2022-09-17 09:22 | PN.PCM_ITS ---
History of Present Illness Date of Service: 09/17/22 Chief Complaint: Left lower extremity ulceration x2 History of Wound: Patient is an 81-year-old female who presents to the wound care center with chronic ulceration x2 to the left lower extremity. She states she became very itchy on the inside of the left ankle and scratched creating 2 ulcerative wounds in April 2022. She reported to the ED soon after and was diagnosed with cellulitis and treated with oral antibiotics. She states that over the next few months the wounds however failed to progress in healing. She did fall recently and went to the [facility] ED for stitches in the right hand where she also had her wounds evaluated. ED physician notes chronic venous stasis with normal capillary fill time, however capillary fill time is diminished from previous visit in April. She has been applying bacitracin to the wounds however has not been wearing compression stockings. She continues to work and is on her feet for most of the day. She states when she comes home her legs are swollen and the ulcerative sites ache. Subjective Subjective This is an 82-year-old female seen for follow-up in the wound care center today for left lower extremity ulceration secondary to chronic venous stasis.? She has confirmed DVT and on Eliquis.? Currently denies calf pain or SOB. Has been changing dressings to left leg as needed. States it is getting less painful. She denies any constitutional symptoms.? She has no further complaints. Objective Data Objective Data Vital Signs: Vital Signs Temp Pulse Resp BP 97.2 F L 101 H 17 155/95 H 09/17/22 08:29 09/17/22 08:29 09/10/22 08:55 09/17/22 08:29 Physical Exam Const alert, oriented x3 and no apparent distress General Appearance: cooperative HEENT normocephalic Eyes General Eye: normal appearance of both eyes Neck General: normal visual inspection Lymph Lymphatic: no lymphadenopathy noted and no lymphedema noted Resp normal respiratory effort Cardio regular rate and regular rhythm Extremity normal capillary refill, no joint enlargement, no calf tenderness and no pedal edema Extremity Narrative: Left lower extremity: DP and PT pulses are palpable.? CFT less than 5 seconds to the digits.? Normal temperature gradient.? Hair growth absent to the digits/foot.? There is varicosities noted to the left lower extremity, periankle, and dorsal foot.? +3 pitting edema - improved.? Ulceration noted to the medial ankle overlying the region of the great saphenous vein.? There is hemosiderin deposition to the medial aspect of the leg consistent with venous stasis dermatitis. Right lower extremity: DP and PT pulses are palpable.? CFT less than 5 seconds to the digits.? Normal temperature gradient.? Hair growth is absent to the digits/foot.? There is varicosities noted to the right lower extremity, periankle, and dorsal foot.? +1 pitting edema noted Skin no rashes or lesions noted, skin turgor normal and no jaundice Wound Narrative: Left lower extremity ulceration x2.? Proximal medial ulceration is healed.? No signs of infection.? Distal medial ulceration is noted overlying the region of the great saphenous vein with mixed fibrogranular base.? No signs of infection.? There is a little localized rubor noted about the ulcerative sites however there is no increased temperature noted.? No purulent drainage, no malodor, no palpable fluctuance/bogginess noted. Neuro moves all extremities Debridement Note Debridement Note Wound debrided: Left lower extremity Laterality: Left Wound Grade/Stage: Blue stage I Type of Debridement: Excisional debridement Anesthesia Used: 5% Lidocaine Gel Depth: Down to and including healthy tissue and in the subcutaneous layer Percentage of wound debrided: 100 Instrument Used: 5mm curette Tissue Removed: Fibrous, devitalized subcutaneous, biofilm, slough Severity: Fat Layer Exposed Amount of bleeding with debridement: Mild Bleeding Controlled with: Compression and gauze Patient tolerated procedure: Patient tolerated procedure well Post-Debridement Measurements and Additional Note: Post-Debridement Measurements/Treatment - Nurse 1 - General Ulcer Assessment Start: 09/10/22 08:54 Freq: Status: Active Protocol: GERALD Activity Type Activity Date Activity User E-sign Co-sign Detail Recorded Client Recorded Date Recorded By Document 09/10/22 08:55 ML [id number] 09/10/22 09:01 ML Document 09/17/22 08:29 AK [id number] 09/17/22 08:35 AK 09/10/22 09/17/22 08:55 08:29 - Today's Visit Information Type of service Follow-up Visit Follow-up Visit (Physician/STUDIO DATA ANALYST (Physician/STUDIO DATA ANALYST ) ) Arrival Mode Ambulatory Ambulatory Transfer Assistance None Patient Identification Verified (Name & Yes Yes ) Patient Requires Transmission-Based No No Precautions Safety Precautions NA NA Vital Signs Temperature (97.8 F-99.1 F) 96.0 F L 97.2 F L Temperature Source Temporal Temporal Pulse Rate (60-100) 92 101 H Pulse Location Monitor Monitor Respiratory Rate (12-18) 17 Respiratory rate source Observation Blood Pressure (90/60-120/80) 160/91 H 155/95 H Blood Pressure Mean (mm Hg) 114 115 Source Monitor Monitor Position Sitting Blood Pressure Location Right Arm History Since Last Visit- (Skip if this is Patient's initial visit) Have you changed medications since your No No last visit? Any new allergies or adverse reactions No No Had a fall/change in ADL's that may No No increase risk of falls Signs or symptoms of abuse and/or No No neglect since last visit Have you been in the hospital since your No No last visit? Has dressing in place as prescribed Yes Yes Has compression in place as prescribed N/A Yes Has offloadiing in place as prescribed N/A N/A Experienced any changes in pain level or No No management Left Footwear Regular Shoe Regular Shoe Right Footwear Regular Shoe Regular Shoe Pain Scale: 0-10 Numeric Is Patient Pain Free? Yes Yes WC - Nurse 1 - General Ulcer Measurement Start: 09/10/22 08:54 Freq: Status: Active Protocol: Activity Type Activity Date Activity User E-sign Co-sign Detail Recorded Client Recorded Date Recorded By Document 09/10/22 08:55 ML [id number] 09/10/22 09:01 ML Document 09/17/22 08:29 AK [id number] 09/17/22 08:35 AK 09/10/22 09/17/22 08:55 08:29 Wound Center Nurse 1 #2 Left superior LE -Combined with other wound No -Current Size (cm) - Length 0.4 0.1 -Current Size (cm) - Width 3 1 -Current Size (cm) - Depth 0.1 0.1 -Total Square Cm 1.2 0.1 -Photo Taken Yes -Tunneling No -Undermining/Tunneling No -Circular Undermining No -Change in Wound Grade/Stage No -Exudate Amt Small None Present -Exudate Type Serosanguineous Serosanguineous -Wound Margin Distinct, Distinct, Outline Outline Attached Attached -Granulation Amt None Present (0 None Present (0 %) %) -Granulation Quality N/A -Slough/Fibrin No No -Necrosis Amt None Present (0 None Present (0 %) %) -Necrotic Tissue Type Adherent Slough -Structure Exposed N/A -Texture (Cristina-wound Skin Appearance) No Abnormality, Assessed -Moisture (Cristina-wound Skin Appearance) Assessed No Abnormality, Assessed -Color (Cristina-wound Skin Appearance) Assessed No Abnormality, Assessed -Temperature (Cristina-wound Skin No Abnormality Appearance) (Pt Warm) -Tenderness on Palpation (Cristina-wound No Yes Skin Appearance) -Ulcer Cleansing Rinsed/ Rinsed/ Irrigated with Irrigated with Saline Saline -Foul Odor after Cleansing No No -Anesthetic Used 5% Lidocaine 5% Lidocaine Gel Gel #1 Left medial ankle -Combined with other wound No -Current Size (cm) - Length 1.5 1.4 -Current Size (cm) - Width 1.1 1 -Current Size (cm) - Depth 0.1 0.1 -Total Square Cm 1.65 1.4 -Photo Taken Yes -Tunneling No -Undermining/Tunneling No -Circular Undermining No -Change in Wound Grade/Stage No -Exudate Amt Small Medium -Exudate Type Serosanguineous Serosanguineous -Wound Margin Distinct, Outline Attached -Granulation Amt Small (1-33%) None Present (0 %) -Granulation Quality [place],Red -Slough/Fibrin No No -Necrosis Amt None Present (0 None Present (0 %) %) -Structure Exposed N/A -Texture (Cristina-wound Skin Appearance) Assessed No Abnormality, Assessed -Moisture (Cristina-wound Skin Appearance) Assessed No Abnormality, Assessed -Color (Cristina-wound Skin Appearance) Assessed No Abnormality, Assessed -Temperature (Cristina-wound Skin No Abnormality No Abnormality Appearance) (Pt Warm) (Pt Warm) -Tenderness on Palpation (Cristina-wound No No Skin Appearance) -Ulcer Cleansing Rinsed/ Rinsed/ Irrigated with Irrigated with Saline Saline -Foul Odor after Cleansing No No -Anesthetic Used 5% Lidocaine 5% Lidocaine Gel Gel Lower Limb Edema Present No Left Calf (cm) 39 Left Ankle (cm) 26 WC - Nurse 2 - General Ulcer CM Notes Start: 09/10/22 08:54 Freq: Status: Active Protocol: Activity Type Activity Date Activity User E-sign Co-sign Detail Recorded Client Recorded Date Recorded By Document 09/10/22 11:26 PL [id number] 09/10/22 11:29 PL 09/10/22 11:26 Wound Center Nurse 2 #2 Left superior LE -Time 09:04 -Correct Patient Yes -Correct Side, Site, Position Yes -Correct Procedure Yes -Procedure Performed Yes -Type of Procedure Debridement -Clinical Debridement Subcutaneous -Tissue Removed Subcutaneous -Post Debridement (cm) - Length 0.2 -Post Debridement (cm) - Width 0.1 -Post Debridement (cm) - Depth 0.1 -Total Square (Post) (cm) 0.02 -Area of Debridement (cm) - Length 0.2 -Area of Debridement (cm) - Width 0.1 -Total Square (Area) (cm) 0.02 -Tunneling No -Undermining/Tunneling No -Circular Undermining No -Wound/Ulcer Outcome Not Healed -Ulcer Cleansing Rinsed/ Irrigated with Saline -Foul Odor after Cleansing No -Bioengineered Tissue No -Bleeding Controlled with Pressure -Treatment Response Procedure Tolerated Well -Debridement - Subq, 1st 20sq cm No #1 Left medial ankle -Time 09:04 -Correct Patient Yes -Correct Side, Site, Position Yes -Correct Procedure Yes -Procedure Performed Yes -Type of Procedure Debridement -Clinical Debridement Subcutaneous -Tissue Removed Subcutaneous -Post Debridement (cm) - Length 1.4 -Post Debridement (cm) - Width 1.2 -Post Debridement (cm) - Depth 0.1 -Total Square (Post) (cm) 1.68 -Area of Debridement (cm) - Length 1.4 -Area of Debridement (cm) - Width 1.2 -Total Square (Area) (cm) 1.68 -Tunneling No -Undermining/Tunneling No -Circular Undermining No -Wound/Ulcer Outcome Not Healed -Ulcer Cleansing Rinsed/ Irrigated with Saline -Foul Odor after Cleansing No -Bioengineered Tissue Yes -Type of Bioengineered Tissue Epifix 18mm Disc -Expiration Date 06/11/27 -Product Lot Number [id number] -Percent Used 100 -Bleeding Controlled with Pressure -Treatment Response Procedure Tolerated Well -Debridement - Subq, 1st 20sq cm No -Apply Skin Sub - 1st 25 sq cm - Legs 1 -Epifix 18mm Disc 3 Pain Scale: 0-10 Numeric Is Patient Pain Free? Yes WC - Nurse 3 - General Ulcer D/C NN Start: 09/10/22 08:54 Freq: Status: Active Protocol: Activity Type Activity Date Activity User E-sign Co-sign Detail Recorded Client Recorded Date Recorded By Document 09/10/22 09:17 ML [id number] 09/10/22 09:20 ML 09/10/22 09:17 Wound Care Center Nurse 3 #2 Left superior LE -Other Dressing epifix,adaptic -Primary Dressing Covered/Secured with Dry Gauze & Roll Gauze #1 Left medial ankle -Other Dressing epifix,adaptic Right -Tubular Bandage Single Layer -Size of Tubigrip Used Size E -Size E ($) 1 Left -Tubular Bandage Single Layer -Size of Tubigrip Used Size E -Size E ($) 1 Pain Scale: 0-10 Numeric Is Patient Pain Free? Yes Assessment/Plan Assessment/Plan (1) Non-pressure chronic ulcer of left calf with fat layer exposed: CODE(S): L97.222 - Non-pressure chronic ulcer of left calf with fat layer exposed (2) Bilateral edema of lower extremity: CODE(S): R60.0 - Localized edema (3) Venous insufficiency (chronic) (peripheral): CODE(S): I87.2 - Venous insufficiency (chronic) (peripheral) PLAN: Plan Patient seen and evaluated Ulceration to the distal aspect of the left lower extremity was debrided as noted in the clinical panel above.? Ulcerative site demonstrates no erythema, no lymphangitic streaking, no purulent drainage, no malodor, no palpable fluctuance/bogginess noted.? Proximal medial ulceration healed today. The distal medial malleoli are ulceration measures 1.2 cm x 0.9 cm x 0.1 cm.? She has been approved for advanced wound care product.? Epi fix graft #3 applied to ulcerative sites and anchored with Adaptic touch and Steri-Strips with dry sterile dressing.? She was instructed to not get the site wet and only change outer dressings as needed.? Tubigrip compression stocking applied to the left lower extremity to aid in edema control. Ulcerations demonstrate continued improvement in size following application of EpiFix graft. I discussed continued application of Tubigrip compression stocking and ultimately transition to knee-high compression stocking of 20 to 30 mmHg to aid in her edema control.? She is instructed to elevate the lower extremities at all times of rest.? I discussed with her that reduction of the edema is essential in her healing process. Due to her diminished capillary fill time over the last few months LEAS was ordered 08/13/22 along with venous studies of bilateral lower extremities. LEAS demonstrates Triphasic and Biphasic Doppler at Right ankle and Biphasic Doppler at Left ankle. Digital incidices normal. Normal PVR. Venous studies demonstrated DVT of Right lower extremity. She was started on Eliquis. Encouraged adequate protein intake and collagen supplement Gregory to aid in her healing. I discussed with her today signs and symptoms of infection to continue to observe.? She was instructed that if she notices any increasing redness about the ulcerative sites that moves up the leg, from the wounds, increased foul odor from the wounds purulent drainage, or if she experiences fever greater than 101 degree, or any nausea, vomiting, or chills that these are signs of a progressing infection and she is to report to the ED.? She voices understanding of this discussion today. Dressing: EpiFix graft, Adaptic touch, Steri-Strips, DSD with Tubigrip Wash: Do not get wet Tissue growth optimization: EpiFix Offload: Tubigrip compression stocking, elevating bilateral lower extremities.? She is to ensure she does not rest the left lower extremity against the right lower extremity to prevent continued pressure during sleeping Vascular: DP and PT pulses palpable.? CFT less than 5 seconds to the digits. LEAS demonstrates no arterial disease. Edema: Tubigrip compression stocking, elevating bilateral lower extremities at all times at rest Infection: No signs of infection Pain: May take [id number] Tylenol for discomfort Host factors: Chronic venous stasis with palpable varicosities to the lower extremity and foot, edema. ? I answered all the patient's questions.? To return to the wound healing center in 1 week or call sooner if the patient has any questions or concerns.
--- NOTE | 2022-09-24 08:14 | PCM.WC.PN ---
History of Present Illness Date of Service: 09/24/22 Chief Complaint: Left lower extremity ulceration x2 History of Wound: Patient is an 81-year-old female who presents to the wound care center with chronic ulceration x2 to the left lower extremity. She states she became very itchy on the inside of the left ankle and scratched creating 2 ulcerative wounds in April 2022. She reported to the ED soon after and was diagnosed with cellulitis and treated with oral antibiotics. She states that over the next few months the wounds however failed to progress in healing. She did fall recently and went to the [facility] ED for stitches in the right hand where she also had her wounds evaluated. ED physician notes chronic venous stasis with normal capillary fill time, however capillary fill time is diminished from previous visit in April. She has been applying bacitracin to the wounds however has not been wearing compression stockings. She continues to work and is on her feet for most of the day. She states when she comes home her legs are swollen and the ulcerative sites ache. Subjective Subjective This is an 82-year-old female seen for follow-up in the wound care center today for left lower extremity ulceration secondary to chronic venous stasis.? She has confirmed DVT and on Eliquis.? Currently denies calf pain or SOB. Has been changing dressings to left leg as needed. States leg is getting less painful, but does ache after debridement. She denies any constitutional symptoms.? She has no further complaints. Objective Data Objective Data Vital Signs: Vital Signs Temp Pulse Resp BP 97.2 F L 101 H 17 155/95 H 09/17/22 08:29 09/17/22 08:29 09/10/22 08:55 09/17/22 08:29 Physical Exam Const alert, oriented x3 and no apparent distress General Appearance: cooperative HEENT normocephalic Eyes General Eye: normal appearance of both eyes Neck General: normal visual inspection Lymph Lymphatic: no lymphadenopathy noted and no lymphedema noted Resp normal respiratory effort Cardio regular rate and regular rhythm Extremity normal capillary refill, no joint enlargement, no calf tenderness and no pedal edema Extremity Narrative: Left lower extremity: DP and PT pulses are palpable.? CFT less than 5 seconds to the digits.? Normal temperature gradient.? Hair growth absent to the digits/foot.? There is varicosities noted to the left lower extremity, periankle, and dorsal foot.? +3 pitting edema - improved.? Ulceration noted to the medial ankle overlying the region of the great saphenous vein.? There is hemosiderin deposition to the medial aspect of the leg consistent with venous stasis dermatitis. Right lower extremity: DP and PT pulses are palpable.? CFT less than 5 seconds to the digits.? Normal temperature gradient.? Hair growth is absent to the digits/foot.? There is varicosities noted to the right lower extremity, periankle, and dorsal foot.? +1 pitting edema noted Skin no rashes or lesions noted, skin turgor normal and no jaundice Wound Narrative: Left lower extremity ulceration x2.? Proximal medial ulceration is healed.? No signs of infection.? Distal medial ulceration is noted overlying the region of the great saphenous vein with mixed fibrogranular base.? No signs of infection.? There is a little localized rubor noted about the ulcerative sites however there is no increased temperature noted.? No purulent drainage, no malodor, no palpable fluctuance/bogginess noted. Neuro moves all extremities Debridement Note Debridement Note Wound debrided: Left lower extremity Laterality: Left Wound Grade/Stage: Blue stage I Type of Debridement: Excisional debridement Anesthesia Used: 5% Lidocaine Gel Depth: Down to and including healthy tissue and in the subcutaneous layer Percentage of wound debrided: 100 Instrument Used: 5mm curette Tissue Removed: Fibrous, devitalized subcutaneous, biofilm, slough Severity: Fat Layer Exposed Amount of bleeding with debridement: Mild Bleeding Controlled with: Compression and gauze Patient tolerated procedure: Patient tolerated procedure well Post-Debridement Measurements and Additional Note: Post-Debridement Measurements/Treatment - Nurse 1 - General Ulcer Assessment Start: 09/10/22 08:54 Freq: Status: Active Protocol: [email or web address] Activity Type Activity Date Activity User E-sign Co-sign Detail Recorded Client Recorded Date Recorded By Document 09/10/22 08:55 ML [id number] 09/10/22 09:01 ML Document 09/17/22 08:29 AK [id number] 09/17/22 08:35 AK 09/10/22 09/17/22 08:55 08:29 - Today's Visit Information Type of service Follow-up Visit Follow-up Visit (Physician/WIRELESS RETAIL MANAGER (Physician/WIRELESS RETAIL MANAGER ) ) Arrival Mode Ambulatory Ambulatory Transfer Assistance None Patient Identification Verified (Name & Yes Yes ) Patient Requires Transmission-Based No No Precautions Safety Precautions NA NA Vital Signs Temperature (97.8 F-99.1 F) 96.0 F L 97.2 F L Temperature Source Temporal Temporal Pulse Rate (60-100) 92 101 H Pulse Location Monitor Monitor Respiratory Rate (12-18) 17 Respiratory rate source Observation Blood Pressure (90/60-120/80) 160/91 H 155/95 H Blood Pressure Mean (mm Hg) 114 115 Source Monitor Monitor Position Sitting Blood Pressure Location Right Arm History Since Last Visit- (Skip if this is Patient's initial visit) Have you changed medications since your No No last visit? Any new allergies or adverse reactions No No Had a fall/change in ADL's that may No No increase risk of falls Signs or symptoms of abuse and/or No No neglect since last visit Have you been in the hospital since your No No last visit? Has dressing in place as prescribed Yes Yes Has compression in place as prescribed N/A Yes Has offloadiing in place as prescribed N/A N/A Experienced any changes in pain level or No No management Left Footwear Regular Shoe Regular Shoe Right Footwear Regular Shoe Regular Shoe Pain Scale: 0-10 Numeric Is Patient Pain Free? Yes Yes WC - Nurse 1 - General Ulcer Measurement Start: 09/10/22 08:54 Freq: Status: Active Protocol: Activity Type Activity Date Activity User E-sign Co-sign Detail Recorded Client Recorded Date Recorded By Document 09/10/22 08:55 ML [id number] 09/10/22 09:01 ML Document 09/17/22 08:29 AK [id number] 09/17/22 08:35 AK 09/10/22 09/17/22 08:55 08:29 Wound Center Nurse 1 #2 Left superior LE -Combined with other wound No -Current Size (cm) - Length 0.4 0.1 -Current Size (cm) - Width 3 1 -Current Size (cm) - Depth 0.1 0.1 -Total Square Cm 1.2 0.1 -Photo Taken Yes -Tunneling No -Undermining/Tunneling No -Circular Undermining No -Change in Wound Grade/Stage No -Exudate Amt Small None Present -Exudate Type Serosanguineous Serosanguineous -Wound Margin Distinct, Distinct, Outline Outline Attached Attached -Granulation Amt None Present (0 None Present (0 %) %) -Granulation Quality N/A -Slough/Fibrin No No -Necrosis Amt None Present (0 None Present (0 %) %) -Necrotic Tissue Type Adherent Slough -Structure Exposed N/A -Texture (Cristina-wound Skin Appearance) No Abnormality, Assessed -Moisture (Cristina-wound Skin Appearance) Assessed No Abnormality, Assessed -Color (Cristina-wound Skin Appearance) Assessed No Abnormality, Assessed -Temperature (Cristina-wound Skin No Abnormality Appearance) (Pt Warm) -Tenderness on Palpation (Cristina-wound No Yes Skin Appearance) -Ulcer Cleansing Rinsed/ Rinsed/ Irrigated with Irrigated with Saline Saline -Foul Odor after Cleansing No No -Anesthetic Used 5% Lidocaine 5% Lidocaine Gel Gel #1 Left medial ankle -Combined with other wound No -Current Size (cm) - Length 1.5 1.4 -Current Size (cm) - Width 1.1 1 -Current Size (cm) - Depth 0.1 0.1 -Total Square Cm 1.65 1.4 -Photo Taken Yes -Tunneling No -Undermining/Tunneling No -Circular Undermining No -Change in Wound Grade/Stage No -Exudate Amt Small Medium -Exudate Type Serosanguineous Serosanguineous -Wound Margin Distinct, Outline Attached -Granulation Amt Small (1-33%) None Present (0 %) -Granulation Quality [place],Red -Slough/Fibrin No No -Necrosis Amt None Present (0 None Present (0 %) %) -Structure Exposed N/A -Texture (Cristina-wound Skin Appearance) Assessed No Abnormality, Assessed -Moisture (Cristina-wound Skin Appearance) Assessed No Abnormality, Assessed -Color (Cristina-wound Skin Appearance) Assessed No Abnormality, Assessed -Temperature (Cristina-wound Skin No Abnormality No Abnormality Appearance) (Pt Warm) (Pt Warm) -Tenderness on Palpation (Cristina-wound No No Skin Appearance) -Ulcer Cleansing Rinsed/ Rinsed/ Irrigated with Irrigated with Saline Saline -Foul Odor after Cleansing No No -Anesthetic Used 5% Lidocaine 5% Lidocaine Gel Gel Lower Limb Edema Present No Left Calf (cm) 39 Left Ankle (cm) 26 WC - Nurse 2 - General Ulcer CM Notes Start: 09/10/22 08:54 Freq: Status: Active Protocol: Activity Type Activity Date Activity User E-sign Co-sign Detail Recorded Client Recorded Date Recorded By Document 09/10/22 11:26 PL [id number] 09/10/22 11:29 PL Document 09/17/22 11:34 PL [id number] 09/17/22 11:36 PL 09/10/22 09/17/22 11:26 11:34 Wound Center Nurse 2 #2 Left superior LE -Time 09:04 -Correct Patient Yes -Correct Side, Site, Position Yes -Correct Procedure Yes -Procedure Performed Yes No -Type of Procedure Debridement -Clinical Debridement Subcutaneous -Tissue Removed Subcutaneous -Post Debridement (cm) - Length 0.2 -Post Debridement (cm) - Width 0.1 -Post Debridement (cm) - Depth 0.1 -Total Square (Post) (cm) 0.02 -Area of Debridement (cm) - Length 0.2 -Area of Debridement (cm) - Width 0.1 -Total Square (Area) (cm) 0.02 -Tunneling No -Undermining/Tunneling No -Circular Undermining No -Wound/Ulcer Outcome Not Healed Healed- Epithelialized -Ulcer Cleansing Rinsed/ Irrigated with Saline -Foul Odor after Cleansing No -Bioengineered Tissue No -Bleeding Controlled with Pressure -Treatment Response Procedure Tolerated Well -Debridement - Subq, 1st 20sq cm No #1 Left medial ankle -Time 09:04 09:11 -Correct Patient Yes Yes -Correct Side, Site, Position Yes Yes -Correct Procedure Yes Yes -Procedure Performed Yes Yes -Type of Procedure Debridement Debridement -Clinical Debridement Subcutaneous Subcutaneous -Tissue Removed Subcutaneous Subcutaneous -Post Debridement (cm) - Length 1.4 1.3 -Post Debridement (cm) - Width 1.2 0.9 -Post Debridement (cm) - Depth 0.1 0.1 -Total Square (Post) (cm) 1.68 1.17 -Area of Debridement (cm) - Length 1.4 1.3 -Area of Debridement (cm) - Width 1.2 0.9 -Total Square (Area) (cm) 1.68 1.17 -Tunneling No No -Undermining/Tunneling No No -Circular Undermining No No -Wound/Ulcer Outcome Not Healed Not Healed -Ulcer Cleansing Rinsed/ Rinsed/ Irrigated with Irrigated with Saline Saline -Foul Odor after Cleansing No No -Bioengineered Tissue Yes Yes -Type of Bioengineered Tissue Epifix 18mm Epifix 18mm Disc Disc -Expiration Date 06/11/27 06/11/27 -Product Lot Number [id number] -Percent Used 100 100 -Bleeding Controlled with Pressure Pressure -Treatment Response Procedure Procedure Tolerated Well Tolerated Well -Debridement - Subq, 1st 20sq cm No No -Apply Skin Sub - 1st 25 sq cm - Legs 1 1 -Epifix 18mm Disc 3 3 Pain Scale: 0-10 Numeric Is Patient Pain Free? Yes Yes WC - Nurse 3 - General Ulcer D/C NN Start: 09/10/22 08:54 Freq: Status: Active Protocol: Activity Type Activity Date Activity User E-sign Co-sign Detail Recorded Client Recorded Date Recorded By Document 09/10/22 09:17 ML [id number] 09/10/22 09:20 ML Document 09/17/22 09:27 RB [id number] 09/17/22 09:29 RB 09/10/22 09/17/22 09:17 09:27 Wound Care Center Nurse 3 #2 Left superior LE -Other Dressing epifix,adaptic -Primary Dressing Covered/Secured with Dry Gauze & Dry Gauze,Dry Roll Gauze Gauze & Roll Gauze,Secured with Tape #1 Left medial ankle -Other Dressing epifix,adaptic -Primary Dressing Covered/Secured with Dry Gauze,Dry Gauze & Roll Gauze,Secured with Tape Right -Tubular Bandage Single Layer -Size of Tubigrip Used Size E -Size E ($) 1 Left -Tubular Bandage Single Layer -Size of Tubigrip Used Size E -Size E ($) 1 -Other single layer tubigrip Treatment Response Procedure Tolerated Well Pain Scale: 0-10 Numeric Is Patient Pain Free? Yes Yes Teaching: Wound Center Compression Wraps & Stockings -Person Taught Patient -Teaching Method Discussion -Response to teaching Reinforcement needed WC - Visit Discharge Discharge Condition Stable Ambulatory Status Ambulatory Transportation Private Auto Medication Reconcilliation completed & No provided to patient/care provider Clinical Summary of Care Provided Yes Assessment/Plan Assessment/Plan (1) Non-pressure chronic ulcer of left calf with fat layer exposed: CODE(S): L97.222 - Non-pressure chronic ulcer of left calf with fat layer exposed (2) Bilateral edema of lower extremity: CODE(S): R60.0 - Localized edema (3) Venous insufficiency (chronic) (peripheral): CODE(S): I87.2 - Venous insufficiency (chronic) (peripheral) PLAN: Plan Patient seen and evaluated Ulceration to the distal aspect of the left lower extremity was debrided as noted in the clinical panel above.? Ulcerative site demonstrates no erythema, no lymphangitic streaking, no purulent drainage, no malodor, no palpable fluctuance/bogginess noted.? Proximal medial ulceration remains healed. The distal medial malleoli are ulceration measures 1.3 cm x 0.9 cm x 0.1 cm.? She has been approved for advanced wound care product.? Epi fix graft #4 applied to ulcerative sites and anchored with Adaptic touch and Steri-Strips with dry sterile dressing.? She was instructed to not get the site wet and only change outer dressings as needed.? Tubigrip compression stocking applied to the left lower extremity to aid in edema control. Ulcerations demonstrate continued improvement in size following application of EpiFix graft. I discussed continued application of Tubigrip compression stocking and ultimately transition to knee-high compression stocking of 20 to 30 mmHg to aid in her edema control.? She is instructed to elevate the lower extremities at all times of rest.? I discussed with her that reduction of the edema is essential in her healing process. Due to her diminished capillary fill time over the last few months LEAS was ordered 08/13/22 along with venous studies of bilateral lower extremities. LEAS demonstrates Triphasic and Biphasic Doppler at Right ankle and Biphasic Doppler at Left ankle. Digital incidices normal. Normal PVR. Venous studies demonstrated DVT of Right lower extremity. She was started on Eliquis. Encouraged adequate protein intake and collagen supplement Gregory to aid in her healing. I discussed with her today signs and symptoms of infection to continue to observe.? She was instructed that if she notices any increasing redness about the ulcerative sites that moves up the leg, from the wounds, increased foul odor from the wounds purulent drainage, or if she experiences fever greater than 101 degree, or any nausea, vomiting, or chills that these are signs of a progressing infection and she is to report to the ED.? She voices understanding of this discussion today. Dressing: EpiFix graft, Adaptic touch, Steri-Strips, DSD with Tubigrip Wash: Do not get wet Tissue growth optimization: EpiFix Offload: Tubigrip compression stocking, elevating bilateral lower extremities.? She is to ensure she does not rest the left lower extremity against the right lower extremity to prevent continued pressure during sleeping Vascular: DP and PT pulses palpable.? CFT less than 5 seconds to the digits. LEAS demonstrates no arterial disease. Edema: Tubigrip compression stocking, elevating bilateral lower extremities at all times at rest Infection: No signs of infection Pain: May take [id number] Tylenol for discomfort Host factors: Chronic venous stasis with palpable varicosities to the lower extremity and foot, edema. ? I answered all the patient's questions.? To return to the wound healing center in 1 week or call sooner if the patient has any questions or concerns.
[2022-09-24 08:23] VITALS: BP 155/80; PULSE 69; TEMP 35.7
--- NOTE | 2022-10-01 08:19 | PCM.WC.PN ---
History of Present Illness Date of Service: 10/01/22 Chief Complaint: Left lower extremity ulceration x2 History of Wound: Patient is an 81-year-old female who presents to the wound care center with chronic ulceration x2 to the left lower extremity. She states she became very itchy on the inside of the left ankle and scratched creating 2 ulcerative wounds in April 2022. She reported to the ED soon after and was diagnosed with cellulitis and treated with oral antibiotics. She states that over the next few months the wounds however failed to progress in healing. She did fall recently and went to the [facility] ED for stitches in the right hand where she also had her wounds evaluated. ED physician notes chronic venous stasis with normal capillary fill time, however capillary fill time is diminished from previous visit in April. She has been applying bacitracin to the wounds however has not been wearing compression stockings. She continues to work and is on her feet for most of the day. She states when she comes home her legs are swollen and the ulcerative sites ache. Subjective Subjective This is an 82-year-old female seen for follow-up in the wound care center today for left lower extremity ulceration secondary to chronic venous stasis.? She has confirmed DVT and on Eliquis.? Currently denies calf pain or SOB. Has been changing dressings to left leg as needed. States leg is getting less painful overall and can tell the wound is decreasing in size. She denies any constitutional symptoms.? She has no further complaints. Objective Data Objective Data Vital Signs: Vital Signs Temp Pulse Resp BP 96.3 F L 69 17 155/80 H 09/24/22 08:23 09/24/22 08:23 09/10/22 08:55 09/24/22 08:23 Physical Exam Const alert, oriented x3 and no apparent distress General Appearance: cooperative HEENT normocephalic Eyes General Eye: normal appearance of both eyes Neck General: normal visual inspection Lymph Lymphatic: no lymphadenopathy noted and no lymphedema noted Resp normal respiratory effort Cardio regular rate and regular rhythm Extremity normal capillary refill, no joint enlargement, no calf tenderness and no pedal edema Extremity Narrative: Left lower extremity: DP and PT pulses are palpable.? CFT less than 5 seconds to the digits.? Normal temperature gradient.? Hair growth absent to the digits/foot.? There is varicosities noted to the left lower extremity, periankle, and dorsal foot.? +3 pitting edema - improved.? Ulceration noted to the medial ankle overlying the region of the great saphenous vein.? There is hemosiderin deposition to the medial aspect of the leg consistent with venous stasis dermatitis. Right lower extremity: DP and PT pulses are palpable.? CFT less than 5 seconds to the digits.? Normal temperature gradient.? Hair growth is absent to the digits/foot.? There is varicosities noted to the right lower extremity, periankle, and dorsal foot.? +1 pitting edema noted Skin no rashes or lesions noted, skin turgor normal and no jaundice Wound Narrative: Left lower extremity ulceration x2.? Proximal medial ulceration is healed.? No signs of infection.? Distal medial ulceration is noted overlying the region of the great saphenous vein with mixed fibrogranular base.? No signs of infection.? There is a little localized rubor noted about the ulcerative sites however there is no increased temperature noted.? No purulent drainage, no malodor, no palpable fluctuance/bogginess noted. Neuro moves all extremities Debridement Note Debridement Note Wound debrided: Left lower extremity Laterality: Left Wound Grade/Stage: Blue stage I Type of Debridement: Excisional debridement Anesthesia Used: 5% Lidocaine Gel Depth: Down to and including healthy tissue and in the subcutaneous layer Percentage of wound debrided: 100 Instrument Used: 5mm curette Tissue Removed: Fibrous, devitalized subcutaneous, biofilm, slough Severity: Fat Layer Exposed Amount of bleeding with debridement: Mild Bleeding Controlled with: Compression and gauze Patient tolerated procedure: Patient tolerated procedure well Post-Debridement Measurements and Additional Note: Post-Debridement Measurements/Treatment - Nurse 1 - General Ulcer Assessment Start: 09/10/22 08:54 Freq: Status: Active Protocol: [email or web address] Activity Type Activity Date Activity User E-sign Co-sign Detail Recorded Client Recorded Date Recorded By Document 09/10/22 08:55 ML [id number] 09/10/22 09:01 ML Document 09/17/22 08:29 AK [id number] 09/17/22 08:35 AK Document 09/24/22 08:23 AK [id number] 09/24/22 08:25 AK 09/10/22 09/17/22 09/24/22 08:55 08:29 08:23 - Today's Visit Information Type of service Follow-up Visit Follow-up Visit Follow-up Visit (Physician/MEDICAID BILLING SPECIALIST (Physician/MEDICAID BILLING SPECIALIST (Physician/MEDICAID BILLING SPECIALIST ) ) ) Arrival Mode Ambulatory Ambulatory Ambulatory Transfer Assistance None Patient Identification Verified (Name & Yes Yes Yes ) Patient Requires Transmission-Based No No No Precautions Safety Precautions NA NA NA Vital Signs Temperature (97.8 F-99.1 F) 96.0 F L 97.2 F L 96.3 F L Temperature Source Temporal Temporal Temporal Pulse Rate (60-100) 92 101 H 69 Pulse Location Monitor Monitor Monitor Respiratory Rate (12-18) 17 Respiratory rate source Observation Blood Pressure (90/60-120/80) 160/91 H 155/95 H 155/80 H Blood Pressure Mean (mm Hg) 114 115 105 Source Monitor Monitor Monitor Position Sitting Blood Pressure Location Right Arm History Since Last Visit- (Skip if this is Patient's initial visit) Have you changed medications since your No No No last visit? Any new allergies or adverse reactions No No No Had a fall/change in ADL's that may No No No increase risk of falls Signs or symptoms of abuse and/or No No No neglect since last visit Have you been in the hospital since your No No No last visit? Has dressing in place as prescribed Yes Yes Yes Has compression in place as prescribed N/A Yes Yes Has offloadiing in place as prescribed N/A N/A N/A Experienced any changes in pain level or No No No management Left Footwear Regular Shoe Regular Shoe Regular Shoe Right Footwear Regular Shoe Regular Shoe Regular Shoe Pain Scale: 0-10 Numeric Is Patient Pain Free? Yes Yes Yes WC - Nurse 1 - General Ulcer Measurement Start: 09/10/22 08:54 Freq: Status: Active Protocol: Activity Type Activity Date Activity User E-sign Co-sign Detail Recorded Client Recorded Date Recorded By Document 09/10/22 08:55 ML [id number] 09/10/22 09:01 ML Document 09/17/22 08:29 AK [id number] 09/17/22 08:35 AK Document 09/24/22 08:23 AK [id number] 09/24/22 08:25 AK 09/10/22 09/17/22 09/24/22 08:55 08:29 08:23 Wound Center Nurse 1 #2 Left superior LE -Combined with other wound No -Current Size (cm) - Length 0.4 0.1 -Current Size (cm) - Width 3 1 -Current Size (cm) - Depth 0.1 0.1 -Total Square Cm 1.2 0.1 -Photo Taken Yes -Tunneling No -Undermining/Tunneling No -Circular Undermining No -Change in Wound Grade/Stage No -Exudate Amt Small None Present -Exudate Type Serosanguineous Serosanguineous -Wound Margin Distinct, Distinct, Outline Outline Attached Attached -Granulation Amt None Present (0 None Present (0 %) %) -Granulation Quality N/A -Slough/Fibrin No No -Necrosis Amt None Present (0 None Present (0 %) %) -Necrotic Tissue Type Adherent Slough -Structure Exposed N/A -Texture (Cristina-wound Skin Appearance) No Abnormality, Assessed -Moisture (Cristina-wound Skin Appearance) Assessed No Abnormality, Assessed -Color (Cristina-wound Skin Appearance) Assessed No Abnormality, Assessed -Temperature (Cristina-wound Skin No Abnormality Appearance) (Pt Warm) -Tenderness on Palpation (Cristina-wound No Yes Skin Appearance) -Ulcer Cleansing Rinsed/ Rinsed/ Irrigated with Irrigated with Saline Saline -Foul Odor after Cleansing No No -Anesthetic Used 5% Lidocaine 5% Lidocaine Gel Gel #1 Left medial ankle -Combined with other wound No No -Current Size (cm) - Length 1.5 1.4 1.3 -Current Size (cm) - Width 1.1 1 0.8 -Current Size (cm) - Depth 0.1 0.1 0.1 -Total Square Cm 1.65 1.4 1.04 -Photo Taken Yes No -Tunneling No No -Undermining/Tunneling No No -Circular Undermining No No -Change in Wound Grade/Stage No No -Exudate Amt Small Medium Medium -Exudate Type Serosanguineous Serosanguineous Serosanguineous -Wound Margin Distinct, Distinct, Outline Outline Attached Attached -Granulation Amt Small (1-33%) None Present (0 Large (67-100%) %) -Granulation Quality [place],Red [place] -Slough/Fibrin No No Yes -Necrosis Amt None Present (0 None Present (0 Small (1-33%) %) %) -Necrotic Tissue Type Adherent Slough -Structure Exposed N/A N/A -Texture (Cristina-wound Skin Appearance) Assessed No Abnormality, No Abnormality, Assessed Assessed -Moisture (Cristina-wound Skin Appearance) Assessed No Abnormality, No Abnormality, Assessed Assessed -Color (Cristina-wound Skin Appearance) Assessed No Abnormality, No Abnormality, Assessed Assessed -Temperature (Cristina-wound Skin No Abnormality No Abnormality No Abnormality Appearance) (Pt Warm) (Pt Warm) (Pt Warm) -Tenderness on Palpation (Cristina-wound No No No Skin Appearance) -Ulcer Cleansing Rinsed/ Rinsed/ Soap and Water Irrigated with Irrigated with Saline Saline -Foul Odor after Cleansing No No No -Anesthetic Used 5% Lidocaine 5% Lidocaine 5% Lidocaine Gel Gel Gel Lower Limb Edema Present No Left Calf (cm) 39 37 Left Ankle (cm) 26 26 WC - Nurse 2 - General Ulcer CM Notes Start: 09/10/22 08:54 Freq: Status: Active Protocol: Activity Type Activity Date Activity User E-sign Co-sign Detail Recorded Client Recorded Date Recorded By Document 09/10/22 11:26 PL [id number] 09/10/22 11:29 PL Document 09/17/22 11:34 PL [id number] 09/17/22 11:36 PL Document 09/24/22 11:36 PL [id number] 09/24/22 11:37 PL 09/10/22 09/17/22 09/24/22 11:26 11:34 11:36 Wound Center Nurse 2 #2 Left superior LE -Time 09:04 -Correct Patient Yes -Correct Side, Site, Position Yes -Correct Procedure Yes -Procedure Performed Yes No -Type of Procedure Debridement -Clinical Debridement Subcutaneous -Tissue Removed Subcutaneous -Post Debridement (cm) - Length 0.2 -Post Debridement (cm) - Width 0.1 -Post Debridement (cm) - Depth 0.1 -Total Square (Post) (cm) 0.02 -Area of Debridement (cm) - Length 0.2 -Area of Debridement (cm) - Width 0.1 -Total Square (Area) (cm) 0.02 -Tunneling No -Undermining/Tunneling No -Circular Undermining No -Wound/Ulcer Outcome Not Healed Healed- Epithelialized -Ulcer Cleansing Rinsed/ Irrigated with Saline -Foul Odor after Cleansing No -Bioengineered Tissue No -Bleeding Controlled with Pressure -Treatment Response Procedure Tolerated Well -Debridement - Subq, 1st 20sq cm No #1 Left medial ankle -Time 09:04 09:11 08:27 -Correct Patient Yes Yes Yes -Correct Side, Site, Position Yes Yes Yes -Correct Procedure Yes Yes Yes -Procedure Performed Yes Yes Yes -Type of Procedure Debridement Debridement Debridement -Clinical Debridement Subcutaneous Subcutaneous Subcutaneous -Tissue Removed Subcutaneous Subcutaneous Subcutaneous -Post Debridement (cm) - Length 1.4 1.3 1.3 -Post Debridement (cm) - Width 1.2 0.9 0.9 -Post Debridement (cm) - Depth 0.1 0.1 0.1 -Total Square (Post) (cm) 1.68 1.17 1.17 -Area of Debridement (cm) - Length 1.4 1.3 1.3 -Area of Debridement (cm) - Width 1.2 0.9 0.9 -Total Square (Area) (cm) 1.68 1.17 1.17 -Tunneling No No No -Undermining/Tunneling No No No -Circular Undermining No No No -Wound/Ulcer Outcome Not Healed Not Healed Not Healed -Ulcer Cleansing Rinsed/ Rinsed/ Rinsed/ Irrigated with Irrigated with Irrigated with Saline Saline Saline -Foul Odor after Cleansing No No No -Bioengineered Tissue Yes Yes Yes -Type of Bioengineered Tissue Epifix 18mm Epifix 18mm Epifix 18mm Disc Disc Disc -Expiration Date 06/11/27 06/11/27 07/12/27 -Product Lot Number [id number] -Percent Used 100 100 100 -Bleeding Controlled with Pressure Pressure Pressure -Treatment Response Procedure Procedure Procedure Tolerated Well Tolerated Well Tolerated Well -Debridement - Subq, 1st 20sq cm No No No -Apply Skin Sub - 1st 25 sq cm - Legs 1 1 1 -Epifix 18mm Disc 3 3 3 Pain Scale: 0-10 Numeric Is Patient Pain Free? Yes Yes Yes WC - Nurse 3 - General Ulcer D/C NN Start: 09/10/22 08:54 Freq: Status: Active Protocol: Activity Type Activity Date Activity User E-sign Co-sign Detail Recorded Client Recorded Date Recorded By Document 09/10/22 09:17 ML [id number] 09/10/22 09:20 ML Document 09/17/22 09:27 RB [id number] 09/17/22 09:29 RB 09/10/22 09/17/22 09:17 09:27 Wound Care Center Nurse 3 #2 Left superior LE -Other Dressing epifix,adaptic -Primary Dressing Covered/Secured with Dry Gauze & Dry Gauze,Dry Roll Gauze Gauze & Roll Gauze,Secured with Tape #1 Left medial ankle -Other Dressing epifix,adaptic -Primary Dressing Covered/Secured with Dry Gauze,Dry Gauze & Roll Gauze,Secured with Tape Right -Tubular Bandage Single Layer -Size of Tubigrip Used Size E -Size E ($) 1 Left -Tubular Bandage Single Layer -Size of Tubigrip Used Size E -Size E ($) 1 -Other single layer tubigrip Treatment Response Procedure Tolerated Well Pain Scale: 0-10 Numeric Is Patient Pain Free? Yes Yes Teaching: Wound Center Compression Wraps & Stockings -Person Taught Patient -Teaching Method Discussion -Response to teaching Reinforcement needed WC - Visit Discharge Discharge Condition Stable Ambulatory Status Ambulatory Transportation Private Auto Medication Reconcilliation completed & No provided to patient/care provider Clinical Summary of Care Provided Yes Assessment/Plan Assessment/Plan (1) Non-pressure chronic ulcer of left calf with fat layer exposed: CODE(S): L97.222 - Non-pressure chronic ulcer of left calf with fat layer exposed (2) Bilateral edema of lower extremity: CODE(S): R60.0 - Localized edema (3) Venous insufficiency (chronic) (peripheral): CODE(S): I87.2 - Venous insufficiency (chronic) (peripheral) PLAN: Plan Patient seen and evaluated Ulceration to the distal aspect of the left lower extremity was debrided as noted in the clinical panel above.? Ulcerative site demonstrates no erythema, no lymphangitic streaking, no purulent drainage, no malodor, no palpable fluctuance/bogginess noted.? Proximal medial ulceration remains healed. The distal medial malleoli ulceration measures 0.9cm x 0.8 cm x 0.1 cm.? She has been approved for advanced wound care product.? Epi fix graft #5 applied to ulcerative sites and anchored with Adaptic touch and Steri-Strips with dry sterile dressing.? She was instructed to not get the site wet and only change outer dressings as needed.? Tubigrip compression stocking applied to the left lower extremity to aid in edema control. Ulceration demonstrates continued improvement in size following application of EpiFix graft. I discussed continued application of Tubigrip compression stocking and ultimately transition to knee-high compression stocking of 20 to 30 mmHg to aid in her edema control.? She is instructed to elevate the lower extremities at all times of rest.? I discussed with her that reduction of the edema is essential in her healing process. Due to her diminished capillary fill time over the last few months LEAS was ordered 08/13/22 along with venous studies of bilateral lower extremities. LEAS demonstrates Triphasic and Biphasic Doppler at Right ankle and Biphasic Doppler at Left ankle. Digital incidices normal. Normal PVR. Venous studies demonstrated DVT of Right lower extremity. She was started on Eliquis. Encouraged adequate protein intake and collagen supplement Gregory to aid in her healing. I discussed with her today signs and symptoms of infection to continue to observe.? She was instructed that if she notices any increasing redness about the ulcerative sites that moves up the leg, from the wounds, increased foul odor from the wounds purulent drainage, or if she experiences fever greater than 101 degree, or any nausea, vomiting, or chills that these are signs of a progressing infection and she is to report to the ED.? She voices understanding of this discussion today. Dressing: EpiFix graft, Adaptic touch, Steri-Strips, DSD with Tubigrip Wash: Do not get wet Tissue growth optimization: EpiFix Offload: Tubigrip compression stocking, elevating bilateral lower extremities.? She is to ensure she does not rest the left lower extremity against the right lower extremity to prevent continued pressure during sleeping Vascular: DP and PT pulses palpable.? CFT less than 5 seconds to the digits. LEAS demonstrates no arterial disease. Edema: Tubigrip compression stocking, elevating bilateral lower extremities at all times at rest Infection: No signs of infection Pain: May take [id number] Tylenol for discomfort Host factors: Chronic venous stasis with palpable varicosities to the lower extremity and foot, edema. ? I answered all the patient's questions.? To return to the wound healing center in 1 week or call sooner if the patient has any questions or concerns.
[2022-10-01 08:20] VITALS: BP 161/88; PULSE 93; RESP 18; TEMP 35.4
--- NOTE | 2022-10-08 08:22 | PCM.WC.PN ---
History of Present Illness Date of Service: 10/08/22 Chief Complaint: Left lower extremity ulceration x2 History of Wound: Patient is an 81-year-old female who presents to the wound care center with chronic ulceration x2 to the left lower extremity. She states she became very itchy on the inside of the left ankle and scratched creating 2 ulcerative wounds in April 2022. She reported to the ED soon after and was diagnosed with cellulitis and treated with oral antibiotics. She states that over the next few months the wounds however failed to progress in healing. She did fall recently and went to the [facility] ED for stitches in the right hand where she also had her wounds evaluated. ED physician notes chronic venous stasis with normal capillary fill time, however capillary fill time is diminished from previous visit in April. She has been applying bacitracin to the wounds however has not been wearing compression stockings. She continues to work and is on her feet for most of the day. She states when she comes home her legs are swollen and the ulcerative sites ache. Subjective Subjective This is an 82-year-old female seen for follow-up in the wound care center today for left lower extremity ulceration secondary to chronic venous stasis.? She has confirmed DVT in Right leg and on Eliquis.? Currently denies calf pain or SOB. Has been changing dressings to left leg as needed. States leg is less painful each week and can tell the wound is decreasing in size.? She denies any constitutional symptoms.? She has no further complaints. Objective Data Objective Data Vital Signs: Vital Signs Temp Pulse Resp BP 95.7 F L 93 18 161/88 H 10/01/22 08:20 10/01/22 08:20 10/01/22 08:20 10/01/22 08:20 Physical Exam Const alert, oriented x3 and no apparent distress General Appearance: cooperative HEENT normocephalic Eyes General Eye: normal appearance of both eyes Neck General: normal visual inspection Lymph Lymphatic: no lymphadenopathy noted and no lymphedema noted Resp normal respiratory effort Cardio regular rate and regular rhythm Extremity normal capillary refill, no joint enlargement, no calf tenderness and no pedal edema Extremity Narrative: Left lower extremity: DP and PT pulses are palpable.? CFT less than 5 seconds to the digits.? Normal temperature gradient.? Hair growth absent to the digits/foot.? There is varicosities noted to the left lower extremity, periankle, and dorsal foot.? +3 pitting edema - improved.? Ulceration noted to the medial ankle overlying the region of the great saphenous vein.? There is hemosiderin deposition to the medial aspect of the leg consistent with venous stasis dermatitis. Right lower extremity: DP and PT pulses are palpable.? CFT less than 5 seconds to the digits.? Normal temperature gradient.? Hair growth is absent to the digits/foot.? There is varicosities noted to the right lower extremity, periankle, and dorsal foot.? +1 pitting edema noted Skin no rashes or lesions noted, skin turgor normal and no jaundice Wound Narrative: Left lower extremity ulceration x2.? Proximal medial ulceration is healed.? No signs of infection.? Distal medial ulceration is noted overlying the region of the great saphenous vein with mixed fibrogranular base.? No signs of infection.? There is a little localized rubor noted about the ulcerative sites however there is no increased temperature noted.? No purulent drainage, no malodor, no palpable fluctuance/bogginess noted. Neuro moves all extremities Debridement Note Debridement Note Wound debrided: Left lower extremity Laterality: Left Wound Grade/Stage: Blue stage I Type of Debridement: Excisional debridement Anesthesia Used: 5% Lidocaine Gel Depth: Down to and including healthy tissue and in the subcutaneous layer Percentage of wound debrided: 100 Instrument Used: 5mm curette Tissue Removed: Fibrous, devitalized subcutaneous, biofilm, slough Severity: Fat Layer Exposed Amount of bleeding with debridement: Mild Bleeding Controlled with: Compression and gauze Patient tolerated procedure: Patient tolerated procedure well Post-Debridement Measurements and Additional Note: Post-Debridement Measurements/Treatment WC - Nurse 1 - General Ulcer Assessment Start: 09/10/22 08:54 Freq: Status: Active Protocol: [email or web address].LOWEXT Activity Type Activity Date Activity User E-sign Co-sign Detail Recorded Client Recorded Date Recorded By Document 09/10/22 08:55 ML [id number] 09/10/22 09:01 ML Document 09/17/22 08:29 AK [id number] 09/17/22 08:35 AK Document 09/24/22 08:23 AK [id number] 09/24/22 08:25 AK Document 10/01/22 08:20 JF Desktop 10/01/22 08:22 JF 09/10/22 09/17/22 09/24/22 08:55 08:29 08:23 [facility] Today's Visit Information Type of service Follow-up Visit Follow-up Visit Follow-up Visit (Physician/TYPE PHOTOGRAPHY SUPERVISOR (Physician/TYPE PHOTOGRAPHY SUPERVISOR (Physician/TYPE PHOTOGRAPHY SUPERVISOR ) ) ) Arrival Mode Ambulatory Ambulatory Ambulatory Transfer Assistance None Patient Identification Verified (Name & Yes Yes Yes ) Patient Requires Transmission-Based No No No Precautions Safety Precautions NA NA NA Vital Signs Temperature (97.8 F-99.1 F) 96.0 F L 97.2 F L 96.3 F L Temperature Source Temporal Temporal Temporal Pulse Rate (60-100) 92 101 H 69 Pulse Location Monitor Monitor Monitor Respiratory Rate (12-18) 17 Respiratory rate source Observation Blood Pressure (90/60-120/80) 160/91 H 155/95 H 155/80 H Blood Pressure Mean (mm Hg) 114 115 105 Source Monitor Monitor Monitor Position Sitting Blood Pressure Location Right Arm History Since Last Visit- (Skip if this is Patient's initial visit) Have you changed medications since your No No No last visit? Any new allergies or adverse reactions No No No Had a fall/change in ADL's that may No No No increase risk of falls Signs or symptoms of abuse and/or No No No neglect since last visit Have you been in the hospital since your No No No last visit? Has dressing in place as prescribed Yes Yes Yes Has compression in place as prescribed N/A Yes Yes Has offloadiing in place as prescribed N/A N/A N/A Experienced any changes in pain level or No No No management Left Footwear Regular Shoe Regular Shoe Regular Shoe Right Footwear Regular Shoe Regular Shoe Regular Shoe Pain Scale: 0-10 Numeric Is Patient Pain Free? Yes Yes Yes 10/01/22 08:20 - Today's Visit Information Type of service Follow-up Visit (Physician/TYPE PHOTOGRAPHY SUPERVISOR ) Arrival Mode Ambulatory Transfer Assistance Patient Identification Verified (Name & Yes ) Patient Requires Transmission-Based No Precautions Safety Precautions Vital Signs Temperature (97.8 F-99.1 F) 95.7 F L Temperature Source Temporal Pulse Rate (60-100) 93 Pulse Location Monitor Respiratory Rate (12-18) 18 Respiratory rate source Observation Blood Pressure (90/60-120/80) 161/88 H Blood Pressure Mean (mm Hg) 112 Source Monitor Position Semi-Fowlers Blood Pressure Location Left Arm History Since Last Visit- (Skip if this is Patient's initial visit) Have you changed medications since your last visit? Any new allergies or adverse reactions Had a fall/change in ADL's that may increase risk of falls Signs or symptoms of abuse and/or neglect since last visit Have you been in the hospital since your last visit? Has dressing in place as prescribed Has compression in place as prescribed Has offloadiing in place as prescribed Experienced any changes in pain level or management Left Footwear Regular Shoe Right Footwear Regular Shoe Pain Scale: 0-10 Numeric Is Patient Pain Free? Yes WC - Nurse 1 - General Ulcer Measurement Start: 09/10/22 08:54 Freq: Status: Active Protocol: Activity Type Activity Date Activity User E-sign Co-sign Detail Recorded Client Recorded Date Recorded By Document 09/10/22 08:55 ML [id number] 09/10/22 09:01 ML Document 09/17/22 08:29 AK [id number] 09/17/22 08:35 AK Document 09/24/22 08:23 AK [id number] 09/24/22 08:25 AK Document 10/01/22 08:20 JF Desktop 10/01/22 08:22 JF 09/10/22 09/17/22 09/24/22 08:55 08:29 08:23 Wound Center Nurse 1 #2 Left superior LE -Combined with other wound No -Current Size (cm) - Length 0.4 0.1 -Current Size (cm) - Width 3 1 -Current Size (cm) - Depth 0.1 0.1 -Total Square Cm 1.2 0.1 -Photo Taken Yes -Tunneling No -Undermining/Tunneling No -Circular Undermining No -Change in Wound Grade/Stage No -Exudate Amt Small None Present -Exudate Type Serosanguineous Serosanguineous -Wound Margin Distinct, Distinct, Outline Outline Attached Attached -Granulation Amt None Present (0 None Present (0 %) %) -Granulation Quality N/A -Slough/Fibrin No No -Necrosis Amt None Present (0 None Present (0 %) %) -Necrotic Tissue Type Adherent Slough -Structure Exposed N/A -Texture (Cristina-wound Skin Appearance) No Abnormality, Assessed -Moisture (Cristina-wound Skin Appearance) Assessed No Abnormality, Assessed -Color (Cristina-wound Skin Appearance) Assessed No Abnormality, Assessed -Temperature (Cristina-wound Skin No Abnormality Appearance) (Pt Warm) -Tenderness on Palpation (Cristina-wound No Yes Skin Appearance) -Ulcer Cleansing Rinsed/ Rinsed/ Irrigated with Irrigated with Saline Saline -Foul Odor after Cleansing No No -Anesthetic Used 5% Lidocaine 5% Lidocaine Gel Gel #1 Left medial ankle -Combined with other wound No No -Current Size (cm) - Length 1.5 1.4 1.3 -Current Size (cm) - Width 1.1 1 0.8 -Current Size (cm) - Depth 0.1 0.1 0.1 -Total Square Cm 1.65 1.4 1.04 -Photo Taken Yes No -Epithelialization -Tunneling No No -Undermining/Tunneling No No -Circular Undermining No No -Change in Wound Grade/Stage No No -Exudate Amt Small Medium Medium -Exudate Type Serosanguineous Serosanguineous Serosanguineous -Wound Margin Distinct, Distinct, Outline Outline Attached Attached -Granulation Amt Small (1-33%) None Present (0 Large (67-100%) %) -Granulation Quality [place] -Slough/Fibrin No No Yes -Necrosis Amt None Present (0 None Present (0 Small (1-33%) %) %) -Necrotic Tissue Type Adherent Slough -Structure Exposed N/A N/A -Texture (Cristina-wound Skin Appearance) Assessed No Abnormality, No Abnormality, Assessed Assessed -Moisture (Cristina-wound Skin Appearance) Assessed No Abnormality, No Abnormality, Assessed Assessed -Color (Cristina-wound Skin Appearance) Assessed No Abnormality, No Abnormality, Assessed Assessed -Temperature (Cristina-wound Skin No Abnormality No Abnormality No Abnormality Appearance) (Pt Warm) (Pt Warm) (Pt Warm) -Tenderness on Palpation (Cristina-wound No No No Skin Appearance) -Ulcer Cleansing Rinsed/ Rinsed/ Soap and Water Irrigated with Irrigated with Saline Saline -Foul Odor after Cleansing No No No -Anesthetic Used 5% Lidocaine 5% Lidocaine 5% Lidocaine Gel Gel Gel Lower Limb Edema Present No Left Calf (cm) 39 37 Left Ankle (cm) 26 26 10/01/ 08:20 Wound Center Nurse 1 #2 Left superior LE -Combined with other wound -Current Size (cm) - Length -Current Size (cm) - Width -Current Size (cm) - Depth -Total Square Cm -Photo Taken -Tunneling -Undermining/Tunneling -Circular Undermining -Change in Wound Grade/Stage -Exudate Amt -Exudate Type -Wound Margin -Granulation Amt -Granulation Quality -Slough/Fibrin -Necrosis Amt -Necrotic Tissue Type -Structure Exposed -Texture (Cristina-wound Skin Appearance) -Moisture (Cristina-wound Skin Appearance) -Color (Cristina-wound Skin Appearance) -Temperature (Cristina-wound Skin Appearance) -Tenderness on Palpation (Cristina-wound Skin Appearance) -Ulcer Cleansing -Foul Odor after Cleansing -Anesthetic Used #1 Left medial ankle -Combined with other wound No -Current Size (cm) - Length 1.0 -Current Size (cm) - Width 0.8 -Current Size (cm) - Depth 0.1 -Total Square Cm 0.80 -Photo Taken Yes -Epithelialization Small 1-33% -Tunneling No -Undermining/Tunneling No -Circular Undermining No -Change in Wound Grade/Stage -Exudate Amt Small -Exudate Type Serosanguineous -Wound Margin Indistinct, Non -Visible -Granulation Amt None Present (0 %) -Granulation Quality -Slough/Fibrin Yes -Necrosis Amt Large (67-100%) -Necrotic Tissue Type Adherent Slough -Structure Exposed N/A -Texture (Cristina-wound Skin Appearance) Assessed, Localized Edema -Moisture (Cristina-wound Skin Appearance) Assessed,Dry/ Scaly -Color (Cristina-wound Skin Appearance) Assessed -Temperature (Cristina-wound Skin No Abnormality Appearance) (Pt Warm) -Tenderness on Palpation (Cristina-wound No Skin Appearance) -Ulcer Cleansing Wound Cleanser -Foul Odor after Cleansing No -Anesthetic Used 5% Lidocaine Gel Lower Limb Edema Present Yes Left Calf (cm) 38.2 Left Ankle (cm) 27.5 WC - Nurse 2 - General Ulcer CM Notes Start: 09/10/22 08:54 Freq: Status: Active Protocol: Activity Type Activity Date Activity User E-sign Co-sign Detail Recorded Client Recorded Date Recorded By Document 09/10/22 11:26 PL [id number] 09/10/22 11:29 PL Document 09/17/22 11:34 PL [id number] 09/17/22 11:36 PL Document 09/24/22 11:36 PL [id number] 09/24/22 11:37 PL Document 10/01/22 13:21 PL [id number] 10/01/22 13:23 PL 09/10/22 09/17/22 09/24/22 11:26 11:34 11:36 Wound Center Nurse 2 #2 Left superior LE -Time 09:04 -Correct Patient Yes -Correct Side, Site, Position Yes -Correct Procedure Yes -Procedure Performed Yes No -Type of Procedure Debridement -Clinical Debridement Subcutaneous -Tissue Removed Subcutaneous -Post Debridement (cm) - Length 0.2 -Post Debridement (cm) - Width 0.1 -Post Debridement (cm) - Depth 0.1 -Total Square (Post) (cm) 0.02 -Area of Debridement (cm) - Length 0.2 -Area of Debridement (cm) - Width 0.1 -Total Square (Area) (cm) 0.02 -Tunneling No -Undermining/Tunneling No -Circular Undermining No -Wound/Ulcer Outcome Not Healed Healed- Epithelialized -Ulcer Cleansing Rinsed/ Irrigated with Saline -Foul Odor after Cleansing No -Bioengineered Tissue No -Bleeding Controlled with Pressure -Treatment Response Procedure Tolerated Well -Debridement - Subq, 1st 20sq cm No #1 Left medial ankle -Time 09:04 09:11 08:27 -Correct Patient Yes Yes Yes -Correct Side, Site, Position Yes Yes Yes -Correct Procedure Yes Yes Yes -Procedure Performed Yes Yes Yes -Type of Procedure Debridement Debridement Debridement -Clinical Debridement Subcutaneous Subcutaneous Subcutaneous -Tissue Removed Subcutaneous Subcutaneous Subcutaneous -Post Debridement (cm) - Length 1.4 1.3 1.3 -Post Debridement (cm) - Width 1.2 0.9 0.9 -Post Debridement (cm) - Depth 0.1 0.1 0.1 -Total Square (Post) (cm) 1.68 1.17 1.17 -Area of Debridement (cm) - Length 1.4 1.3 1.3 -Area of Debridement (cm) - Width 1.2 0.9 0.9 -Total Square (Area) (cm) 1.68 1.17 1.17 -Tunneling No No No -Undermining/Tunneling No No No -Circular Undermining No No No -Wound/Ulcer Outcome Not Healed Not Healed Not Healed -Ulcer Cleansing Rinsed/ Rinsed/ Rinsed/ Irrigated with Irrigated with Irrigated with Saline Saline Saline -Foul Odor after Cleansing No No No -Bioengineered Tissue Yes Yes Yes -Type of Bioengineered Tissue Epifix 18mm Epifix 18mm Epifix 18mm Disc Disc Disc -Expiration Date 06/11/27 06/11/27 07/12/27 -Product Lot Number [id number] -Percent Used 100 100 100 -Bleeding Controlled with Pressure Pressure Pressure -Treatment Response Procedure Procedure Procedure Tolerated Well Tolerated Well Tolerated Well -Debridement - Subq, 1st 20sq cm No No No -Apply Skin Sub - 1st 25 sq cm - Legs 1 1 1 -Epifix 18mm Disc 3 3 3 Pain Scale: 0-10 Numeric Is Patient Pain Free? Yes Yes Yes 10/01/22 13:21 Wound Center Nurse 2 #2 Left superior LE -Time -Correct Patient -Correct Side, Site, Position -Correct Procedure -Procedure Performed -Type of Procedure -Clinical Debridement -Tissue Removed -Post Debridement (cm) - Length -Post Debridement (cm) - Width -Post Debridement (cm) - Depth -Total Square (Post) (cm) -Area of Debridement (cm) - Length -Area of Debridement (cm) - Width -Total Square (Area) (cm) -Tunneling -Undermining/Tunneling -Circular Undermining -Wound/Ulcer Outcome -Ulcer Cleansing -Foul Odor after Cleansing -Bioengineered Tissue -Bleeding Controlled with -Treatment Response -Debridement - Subq, 1st 20sq cm #1 Left medial ankle -Time 08:30 -Correct Patient Yes -Correct Side, Site, Position Yes -Correct Procedure Yes -Procedure Performed Yes -Type of Procedure Debridement -Clinical Debridement Subcutaneous -Tissue Removed Subcutaneous -Post Debridement (cm) - Length 0.9 -Post Debridement (cm) - Width 0.8 -Post Debridement (cm) - Depth 0.1 -Total Square (Post) (cm) 0.72 -Area of Debridement (cm) - Length 0.9 -Area of Debridement (cm) - Width 0.8 -Total Square (Area) (cm) 0.72 -Tunneling No -Undermining/Tunneling No -Circular Undermining No -Wound/Ulcer Outcome Not Healed -Ulcer Cleansing Rinsed/ Irrigated with Saline -Foul Odor after Cleansing No -Bioengineered Tissue Yes -Type of Bioengineered Tissue Epifix 18mm Disc -Expiration Date 07/12/27 -Product Lot Number [id number] -Percent Used 100 -Bleeding Controlled with Pressure -Treatment Response Procedure Tolerated Well -Debridement - Subq, 1st 20sq cm No -Apply Skin Sub - 1st 25 sq cm - Legs 1 -Epifix 18mm Disc 3 Pain Scale: 0-10 Numeric Is Patient Pain Free? Yes - Nurse 3 - General Ulcer D/C NN Start: 09/10/22 08:54 Freq: Status: Active Protocol: Activity Type Activity Date Activity User E-sign Co-sign Detail Recorded Client Recorded Date Recorded By Document 09/10/22 09:17 ML [id number] 09/10/22 09:20 ML Document 09/17/22 09:27 RB [id number] 09/17/22 09:29 RB Document 10/01/22 08:39 JF [id number] 10/01/22 08:40 JF 09/10/22 09/17/22 10/01/22 09:17 09:27 08:39 Wound Care Center Nurse 3 #2 Left superior LE -Other Dressing epifix,adaptic -Primary Dressing Covered/Secured with Dry Gauze & Dry Gauze,Dry Roll Gauze Gauze & Roll Gauze,Secured with Tape #1 Left medial ankle -Ulcer Cleansing Rinsed/ Irrigated with Saline -Foul Odor after Cleansing No -Other Dressing epifix,adaptic -Primary Dressing Covered/Secured with Dry Gauze,Dry Dry Gauze & Gauze & Roll Roll Gauze, Gauze,Secured Secured with with Tape Tape Right -Tubular Bandage Single Layer -Size of Tubigrip Used Size E -Size E ($) 1 Left -Tubular Bandage Single Layer Single Layer -Size of Tubigrip Used Size E Size E -Size E ($) 1 1 -Other single layer tubigrip Treatment Response Procedure Tolerated Well Pain Scale: 0-10 Numeric Is Patient Pain Free? Yes Yes Yes Teaching: Wound Center Compression Wraps & Stockings -Person Taught Patient -Teaching Method Discussion -Response to teaching Reinforcement needed WC - Visit Discharge Discharge Condition Stable Stable Ambulatory Status Ambulatory Ambulatory Transportation Private Auto Private Auto Medication Reconcilliation completed & No Yes provided to patient/care provider Clinical Summary of Care Provided Yes Yes Assessment/Plan Assessment/Plan (1) Non-pressure chronic ulcer of left calf with fat layer exposed: CODE(S): L97.222 - Non-pressure chronic ulcer of left calf with fat layer exposed (2) Bilateral edema of lower extremity: CODE(S): R60.0 - Localized edema (3) Venous insufficiency (chronic) (peripheral): CODE(S): I87.2 - Venous insufficiency (chronic) (peripheral) PLAN: Plan Patient seen and evaluated Ulceration to the distal aspect of the left lower extremity was debrided as noted in the clinical panel above.? Ulcerative site demonstrates no erythema, no lymphangitic streaking, no purulent drainage, no malodor, no palpable fluctuance/bogginess noted.? Proximal medial ulceration remains healed. The distal medial malleoli ulceration measures 0.8cm x 0.6 cm x 0.1 cm.? She has been approved for advanced wound care product.? Epi fix graft #6 applied to ulcerative sites and anchored with Adaptic touch and Steri-Strips with dry sterile dressing.? She was instructed to not get the site wet and only change outer dressings as needed.? Tubigrip compression stocking applied to the left lower extremity to aid in edema control. Ulceration demonstrates continued improvement in size following application of EpiFix graft. I discussed continued application of Tubigrip compression stocking and ultimately transition to knee-high compression stocking of 20 to 30 mmHg to aid in her edema control.? She is instructed to elevate the lower extremities at all times of rest.? I discussed with her that reduction of the edema is essential in her healing process. Due to her diminished capillary fill time over the last few months LEAS was ordered 08/13/22 along with venous studies of bilateral lower extremities. LEAS demonstrates Triphasic and Biphasic Doppler at Right ankle and Biphasic Doppler at Left ankle. Digital incidices normal. Normal PVR. Venous studies demonstrated DVT of Right lower extremity. She was started on Eliquis. Encouraged adequate protein intake and collagen supplement Gregory to aid in her healing. I discussed with her today signs and symptoms of infection to continue to observe.? She was instructed that if she notices any increasing redness about the ulcerative sites that moves up the leg, from the wounds, increased foul odor from the wounds purulent drainage, or if she experiences fever greater than 101 degree, or any nausea, vomiting, or chills that these are signs of a progressing infection and she is to report to the ED.? She voices understanding of this discussion today. The following wound care recommendations were made: Dressing: EpiFix graft, Adaptic touch, Steri-Strips, DSD with Tubigrip Wash: Do not get wet Tissue growth optimization: EpiFix Offload: Tubigrip compression stocking, elevating bilateral lower extremities.? She is to ensure she does not rest the left lower extremity against the right lower extremity to prevent continued pressure during sleeping Vascular: DP and PT pulses palpable.? CFT less than 5 seconds to the digits. LEAS demonstrates no arterial disease. Edema: Tubigrip compression stocking, elevating bilateral lower extremities at all times at rest Infection: No signs of infection Pain: May take [id number] Tylenol for discomfort Host factors: Chronic venous stasis with palpable varicosities to the lower extremity and foot, edema. ? I answered all the patient's questions.? To return to the wound healing center in 1 week or call sooner if the patient has any questions or concerns.
[2022-10-08 08:26] VITALS: BP 157/99; PULSE 78; TEMP 35.3
== END 2022-10-09 23:59 | disposition home or self-care (01) ==
LOC: WC 08:15
PROVIDERS: PCP Internal Medicine; Visit Provider Student in an Organized Health Care Education/Training Program
DX: I83.022 Varicose veins of left lower extremity with ulcer of calf (principal); L97.222 Non-pressure chronic ulcer of left calf with fat layer exposed; I82.401 Acute embolism and thrombosis of unspecified deep veins of right lower extremity; S61.401D Unspecified open wound of right hand, subsequent encounter; R60.0 Localized edema; W19.XXXD Unspecified fall, subsequent encounter; Z79.01 Long term (current) use of anticoagulants
CPT/HCPCS: 15271; Q4186

== ENCOUNTER 2022-10-29 08:15 | Outpatient (RCR) | payer MEDICARE, SELFPAY ==
[2022-10-10 00:54] VITALS: BP 157/99; PULSE 78; RESP 18; TEMP 35.3
[2022-10-22 08:23] VITALS: BP 159/90; PULSE 83; RESP 16; TEMP 36.1
--- NOTE | 2022-10-22 08:36 | PCM.WC.PN ---
History of Present Illness Date of Service: 10/22/22 Chief Complaint: Left lower extremity ulceration x2 History of Wound: Patient is an 81-year-old female who presents to the wound care center with chronic ulceration x2 to the left lower extremity. She states she became very itchy on the inside of the left ankle and scratched creating 2 ulcerative wounds in April 2022. She reported to the ED soon after and was diagnosed with cellulitis and treated with oral antibiotics. She states that over the next few months the wounds however failed to progress in healing. She did fall recently and went to the [facility] ED for stitches in the right hand where she also had her wounds evaluated. ED physician notes chronic venous stasis with normal capillary fill time, however capillary fill time is diminished from previous visit in April. She has been applying bacitracin to the wounds however has not been wearing compression stockings. She continues to work and is on her feet for most of the day. She states when she comes home her legs are swollen and the ulcerative sites ache. Subjective Subjective This is an 82-year-old female seen for follow-up in the wound care center today for left lower extremity ulceration secondary to chronic venous stasis.? She has confirmed DVT in Right leg and on Eliquis.? Currently denies calf pain or SOB. Has been changing dressings to left leg as needed. States leg has very little pain and wound is decreasing in size.? She denies any constitutional symptoms.? She has no further complaints. Objective Data Objective Data Vital Signs: Vital Signs Temp Pulse Resp BP 95.6 F L 78 18 157/99 H 10/10/22 00:54 10/10/22 00:54 10/10/22 00:54 10/10/22 00:54 Physical Exam Const alert, oriented x3 and no apparent distress General Appearance: cooperative HEENT normocephalic Eyes General Eye: normal appearance of both eyes Neck General: normal visual inspection Lymph Lymphatic: no lymphadenopathy noted and no lymphedema noted Resp normal respiratory effort Cardio regular rate and regular rhythm Extremity normal capillary refill, no calf tenderness and no pedal edema Extremity Narrative: Left lower extremity: DP and PT pulses are palpable.? CFT less than 5 seconds to the digits.? Normal temperature gradient.? Hair growth absent to the digits/foot.? There is varicosities noted to the left lower extremity, periankle, and dorsal foot.? +3 pitting edema - improved.? Ulceration noted to the medial ankle overlying the region of the great saphenous vein.? There is hemosiderin deposition to the medial aspect of the leg consistent with venous stasis dermatitis. Right lower extremity: DP and PT pulses are palpable.? CFT less than 5 seconds to the digits.? Normal temperature gradient.? Hair growth is absent to the digits/foot.? There is varicosities noted to the right lower extremity, periankle, and dorsal foot.? +1 pitting edema noted Skin Wound Narrative: Left lower extremity ulceration x2.? Proximal medial ulceration is healed.? No signs of infection.? Distal medial ulceration is noted overlying the region of the great saphenous vein with mixed fibrogranular base.? No signs of infection.? There is a little localized rubor noted about the ulcerative sites however there is no increased temperature noted.? No purulent drainage, no malodor, no palpable fluctuance/bogginess noted. Neuro moves all extremities Debridement Note Debridement Note Wound debrided: Left lower extremity Laterality: Left Wound Grade/Stage: Blue stage I Type of Debridement: Excisional debridement Anesthesia Used: 5% Lidocaine Gel Depth: Down to and including healthy tissue and in the subcutaneous layer Percentage of wound debrided: 100 Instrument Used: 5mm curette Tissue Removed: Fibrous, devitalized subcutaneous, biofilm, slough Severity: Fat Layer Exposed Amount of bleeding with debridement: Mild Bleeding Controlled with: Compression and gauze Patient tolerated procedure: Patient tolerated procedure well Assessment/Plan Assessment/Plan (1) DVT (deep venous thrombosis): CODE(S): I82.409 - Acute embolism and thrombosis of unspecified deep veins of unspecified lower extremity (2) Venous insufficiency (chronic) (peripheral): CODE(S): I87.2 - Venous insufficiency (chronic) (peripheral) (3) Atrial fibrillation: CODE(S): I48.91 - Unspecified atrial fibrillation (4) Non-pressure chronic ulcer of left calf with fat layer exposed: CODE(S): L97.222 - Non-pressure chronic ulcer of left calf with fat layer exposed (5) Bilateral edema of lower extremity: CODE(S): R60.0 - Localized edema PLAN: Plan Patient seen and evaluated Ulceration to the distal aspect of the left lower extremity was debrided as noted in the clinical panel above.? Ulcerative site demonstrates no erythema, no lymphangitic streaking, no purulent drainage, no malodor, no palpable fluctuance/bogginess noted.? Proximal medial ulceration remains healed. The distal medial malleoli ulceration measures 0.5cm x 0.4 cm x 0.1 cm.? She has been approved for advanced wound care product.? Epi fix graft #7 applied to ulcerative sites and anchored with Adaptic touch and Steri-Strips with dry sterile dressing.? She was instructed to not get the site wet and only change outer dressings as needed.? Tubigrip compression stocking applied to the left lower extremity to aid in edema control. Ulceration demonstrates continued improvement in size following application of EpiFix graft. I discussed continued application of Tubigrip compression stocking and ultimately transition to knee-high compression stocking of 20 to 30 mmHg to aid in her edema control.? She is instructed to elevate the lower extremities at all times of rest.? I discussed with her that reduction of the edema is essential in her healing process. Due to her diminished capillary fill time over the last few months LEAS was ordered 08/13/22 along with venous studies of bilateral lower extremities. LEAS demonstrates Triphasic and Biphasic Doppler at Right ankle and Biphasic Doppler at Left ankle. Digital incidices normal. Normal PVR. Venous studies demonstrated DVT of Right lower extremity. She was started on Eliquis. Encouraged adequate protein intake and collagen supplement Gregory to aid in her healing. I discussed with her today signs and symptoms of infection to continue to observe.? She was instructed that if she notices any increasing redness about the ulcerative sites that moves up the leg, from the wounds, increased foul odor from the wounds purulent drainage, or if she experiences fever greater than 101 degree, or any nausea, vomiting, or chills that these are signs of a progressing infection and she is to report to the ED.? She voices understanding of this discussion today. The following wound care recommendations were made: Dressing: EpiFix graft, Adaptic touch, Steri-Strips, DSD with Tubigrip Wash: Do not get wet Tissue growth optimization: EpiFix Offload: Tubigrip compression stocking, elevating bilateral lower extremities.? She is to ensure she does not rest the left lower extremity against the right lower extremity to prevent continued pressure during sleeping Vascular: DP and PT pulses palpable.? CFT less than 5 seconds to the digits. LEAS demonstrates no arterial disease. Edema: Tubigrip compression stocking, elevating bilateral lower extremities at all times at rest Infection: No signs of infection Pain: May take abnt-[id number] Tylenol for discomfort Host factors: Chronic venous stasis with palpable varicosities to the lower extremity and foot, edema. ? I answered all the patient's questions.? To return to the wound healing center in 1 week or call sooner if the patient has any questions or concerns.
--- NOTE | 2022-10-29 08:15 | PN.PCM_ITS ---
History of Present Illness Date of Service: 10/29/22 Chief Complaint: Left lower extremity ulceration x2 History of Wound: Patient is an 81-year-old female who presents to the wound care center with chronic ulceration x2 to the left lower extremity. She states she became very itchy on the inside of the left ankle and scratched creating 2 ulcerative wounds in April 2022. She reported to the ED soon after and was diagnosed with cellulitis and treated with oral antibiotics. She states that over the next few months the wounds however failed to progress in healing. She did fall recently and went to the [facility] ED for stitches in the right hand where she also had her wounds evaluated. ED physician notes chronic venous stasis with normal capillary fill time, however capillary fill time is diminished from previous visit in April. She has been applying bacitracin to the wounds however has not been wearing compression stockings. She continues to work and is on her feet for most of the day. She states when she comes home her legs are swollen and the ulcerative sites ache. Subjective Subjective This is an 82-year-old female seen for follow-up in the wound care center today for left lower extremity ulceration secondary to chronic venous stasis.? She has confirmed DVT in Right leg and on Eliquis.? Currently denies calf pain or SOB. States that she is also now on thyroid medication for hypothyroid. Has been changing dressings to left leg as needed. States leg has very little pain and believes she is almost healed.? She denies any constitutional symptoms.? She has no further complaints. Objective Data Objective Data Vital Signs: Vital Signs Temp Pulse Resp BP O2 Del Method 97 F L 83 16 159/90 H Room Air 10/22/22 08:23 10/22/22 08:23 10/22/22 08:23 10/22/22 08:23 10/22/22 08:23 Oxygen Delivery Method Room Air Physical Exam Const alert, oriented x3 and no apparent distress General Appearance: cooperative HEENT normocephalic Eyes General Eye: normal appearance of both eyes Neck General: normal visual inspection Lymph Lymphatic: no lymphadenopathy noted and no lymphedema noted Resp normal respiratory effort Cardio regular rate and regular rhythm Extremity normal capillary refill, no calf tenderness and no pedal edema Extremity Narrative: Left lower extremity: DP and PT pulses are palpable.? CFT less than 5 seconds to the digits.? Normal temperature gradient.? Hair growth absent to the digits/foot.? There is varicosities noted to the left lower extremity, periankle, and dorsal foot.? +3 pitting edema - improved.? Ulceration noted to the medial ankle overlying the region of the great saphenous vein.? There is hemosiderin deposition to the medial aspect of the leg consistent with venous stasis dermatitis. Right lower extremity: DP and PT pulses are palpable.? CFT less than 5 seconds to the digits.? Normal temperature gradient.? Hair growth is absent to the digits/foot.? There is varicosities noted to the right lower extremity, periankle, and dorsal foot.? +1 pitting edema noted?improved Skin Wound Narrative: Left lower extremity ulceration x2.? Proximal medial ulceration is healed.? No signs of infection.? Distal medial ulceration is noted overlying the region of the great saphenous vein with mixed fibrogranular base.? No signs of infection.? There is a little localized rubor noted about the ulcerative sites however there is no increased temperature noted.? No purulent drainage, no malodor, no palpable fluctuance/bogginess noted.? Healed Neuro moves all extremities Debridement Note Debridement Note No debridement was completed: No debridement was completed today (No debridement was completed today as the wound has healed.) Post-Debridement Measurements and Additional Note: Post-Debridement Measurements/Treatment - Nurse 1 - General Ulcer Assessment Start: 10/22/22 08:23 Freq: Status: Active Protocol: WC.LOWEXT Activity Type Activity Date Activity User E-sign Co-sign Detail Recorded Client Recorded Date Recorded By Document 10/22/22 08:23 [facility] [id number] 10/22/22 08:37 [facility] 10/22/22 08:23 - Today's Visit Information Type of service Follow-up Visit (Physician/[employer] ) Arrival Mode Ambulatory Transfer Assistance None Patient Identification Verified (Name & Yes ) Patient Requires Transmission-Based No Precautions Vital Signs Temperature (97.8 F-99.1 F) 97 F L Temperature Source Temporal Pulse Rate (60-100) 83 Pulse Location Monitor Respiratory Rate (12-18) 16 Respiratory rate source Observation Oxygen Delivery Method Room Air Blood Pressure (90/60-120/80) 159/90 H Blood Pressure Mean (mm Hg) 113 Source Monitor Position Sitting Blood Pressure Location Right Arm History Since Last Visit- (Skip if this is Patient's initial visit) Have you changed medications since your No last visit? Any new allergies or adverse reactions No Had a fall/change in ADL's that may No increase risk of falls Signs or symptoms of abuse and/or No neglect since last visit Have you been in the hospital since your No last visit? Has dressing in place as prescribed Yes Has compression in place as prescribed N/A Has offloadiing in place as prescribed N/A Experienced any changes in pain level or No management Left Footwear Regular Shoe Right Footwear Regular Shoe Pain Scale: 0-10 Numeric Is Patient Pain Free? Yes WC - Nurse 1 - General Ulcer Measurement Start: 10/22/22 08:23 Freq: Status: Active Protocol: Activity Type Activity Date Activity User E-sign Co-sign Detail Recorded Client Recorded Date Recorded By Document 10/22/22 08:23 [facility] [id number] 10/22/22 08:37 [facility] 10/22/22 08:23 Wound Center Nurse 1 #1 Left medial ankle -Combined with other wound No -Current Size (cm) - Length 1 -Current Size (cm) - Width 0.7 -Current Size (cm) - Depth 0.1 -Total Square Cm 0.7 -Date of Last Picture (Recall this 10/22/22 field) -Photo Taken Yes -Epithelialization None Present -Tunneling No -Undermining/Tunneling No -Circular Undermining No -Exudate Amt Small -Exudate Type Serous -Wound Margin Distinct, Outline Attached -Granulation Amt None Present (0 %) -Slough/Fibrin Yes -Necrosis Amt Large (67-100%) -Necrotic Tissue Type Eschar -Texture (Cristina-wound Skin Appearance) Assessed, Scarring -Moisture (Cristina-wound Skin Appearance) Assessed,Dry/ Scaly -Color (Cristina-wound Skin Appearance) No Abnormality -Temperature (Cristina-wound Skin No Abnormality Appearance) (Pt Warm) -Tenderness on Palpation (Cristina-wound No Skin Appearance) -Ulcer Cleansing Soap and Water -Foul Odor after Cleansing No -Anesthetic Used 5% Lidocaine Gel Lower Limb Edema Present Yes Left Calf (cm) 38.9 Left Ankle (cm) 26 WC - Nurse 2 - General Ulcer CM Notes Start: 10/22/22 08:23 Freq: Status: Active Protocol: Activity Type Activity Date Activity User E-sign Co-sign Detail Recorded Client Recorded Date Recorded By Document 10/22/22 09:15 PL [id number] 10/23/22 07:12 PL 10/22/22 09:15 Wound Center Nurse 2 #1 Left medial ankle -Time 09:15 -Correct Patient Yes -Correct Side, Site, Position Yes -Correct Procedure Yes -Procedure Performed Yes -Type of Procedure Debridement -Clinical Debridement Subcutaneous -Tissue Removed Subcutaneous -Post Debridement (cm) - Length 0.5 -Post Debridement (cm) - Width 0.4 -Post Debridement (cm) - Depth 0.2 -Total Square (Post) (cm) 0.20 -Area of Debridement (cm) - Length 0.5 -Area of Debridement (cm) - Width 0.4 -Total Square (Area) (cm) 0.20 -Tunneling No -Undermining/Tunneling No -Circular Undermining No -Wound/Ulcer Outcome Not Healed -Ulcer Cleansing Rinsed/ Irrigated with Saline -Foul Odor after Cleansing No -Bioengineered Tissue Yes -Type of Bioengineered Tissue Epifix 18mm Disc -Expiration Date 08/12/27 -Product Lot Number [id number] -Percent Used 100 -Bleeding Controlled with Pressure -Treatment Response Procedure Tolerated Well -Debridement - Subq, 1st 20sq cm No -Apply Skin Sub - 1st 25 sq cm - Legs 1 -Epifix 18mm Disc 3 Pain Scale: 0-10 Numeric Is Patient Pain Free? Yes - Nurse 3 - General Ulcer D/C NN Start: 10/22/22 08:23 Freq: Status: Active Protocol: Activity Type Activity Date Activity User E-sign Co-sign Detail Recorded Client Recorded Date Recorded By Document 10/22/22 09:31 [id number] 10/22/22 09:32 [facility] 10/22/22 09:31 Wound Care Center Nurse 3 #1 Left medial ankle -Ulcer Cleansing Rinsed/ Irrigated with Saline -Foul Odor after Cleansing No -Primary Dressing Covered/Secured with Dry Gauze & Roll Gauze, Secured with Tape Left -Tubular Bandage Single Layer -Size of Tubigrip Used Size D -Size D ($) 1 Pain Scale: 0-10 Numeric Is Patient Pain Free? Yes - Visit Discharge Discharge Condition Stable Ambulatory Status Ambulatory Transportation Private Auto Medication Reconcilliation completed & Yes provided to patient/care provider Clinical Summary of Care Provided Yes Assessment/Plan Assessment/Plan (1) DVT (deep venous thrombosis): CODE(S): I82.409 - Acute embolism and thrombosis of unspecified deep veins of unspecified lower extremity (2) Venous insufficiency (chronic) (peripheral): CODE(S): I87.2 - Venous insufficiency (chronic) (peripheral) (3) Atrial fibrillation: CODE(S): I48.91 - Unspecified atrial fibrillation (4) Non-pressure chronic ulcer of left calf with fat layer exposed: CODE(S): L97.222 - Non-pressure chronic ulcer of left calf with fat layer exposed (5) Bilateral edema of lower extremity: CODE(S): R60.0 - Localized edema PLAN: Plan Patient seen and evaluated Ulceration to the distal aspect of the left lower extremity has healed today. No signs of infection. Tubigrip compression stocking applied to the left lower extremity to aid in edema control. Discussed a protective dry dressing to be placed over the site as the skin is still fragile following healing for the next 10 days. She may continue to wash site with soap and water and continue Tubigrip compression to discourage future wound development secondary to swelling. Ulceration has healed with use of EpiFix graft. I discussed continued application of Tubigrip compression stocking and ultimately transition to knee-high compression stocking of 20 to 30 mmHg to aid in her edema control.? She is instructed to elevate the lower extremities at all times of rest.? I discussed with her that reduction of the edema is essential in preventing new wounds. Due to her diminished capillary fill time over the last few months LEAS was ordered 08/13/22 along with venous studies of bilateral lower extremities. LEAS demonstrates Triphasic and Biphasic Doppler at Right ankle and Biphasic Doppler at Left ankle. Digital incidices normal. Normal PVR. Venous studies demonstrated DVT of Right lower extremity. She was started on Eliquis. Encouraged adequate protein intake and collagen supplement Gregory to aid in her healing. The following wound care recommendations were made: Dressing: Protective gauze dressing for 10 days. Wash: Soap and water Tissue growth optimization: None Offload: Tubigrip compression stocking, elevating bilateral lower extremities.? Vascular: DP and PT pulses palpable.? CFT less than 5 seconds to the digits. LEAS demonstrates no arterial disease. Edema: Tubigrip compression stocking, elevating bilateral lower extremities at all times at rest Infection: No signs of infection Pain: May take [id number] Tylenol for discomfort Host factors: Chronic venous stasis with palpable varicosities to the lower extremity and foot, edema. ? I answered all the patient's questions.? At this time due to her wound having healed she is being discharged from the wound care center today. She may call wound healing center sooner if the patient has any questions or concerns or have problems with future wounds.
[2022-10-29 08:23] VITALS: BP 160/96; PULSE 89; RESP 16; TEMP 35.5
== END 2022-11-08 23:59 | disposition home or self-care (01) ==
LOC: WC 08:15
PROVIDERS: PCP Internal Medicine; Visit Provider Student in an Organized Health Care Education/Training Program
DX: L97.222 Non-pressure chronic ulcer of left calf with fat layer exposed (principal); I82.409 Acute embolism and thrombosis of unspecified deep veins of unspecified lower extremity; I48.91 Unspecified atrial fibrillation; R60.0 Localized edema; I87.2 Venous insufficiency (chronic) (peripheral)
CPT/HCPCS: 15271; 99213; Q4186; G0463

== ENCOUNTER → 2022-11-02 | Outpatient (CLI) | payer MEDICARE, SELFPAY ==
[2022-10-21 14:34] LABS: Thyroid Stim Hormone (TSH) 9.45 uIU/mL (0.358-3.74)
[2022-10-22 15:11] LABS: T4 Free Direct 0.58 ng/dL (0.76-1.46)
--- NOTE | 2022-11-02 14:53 | ECHOD_ITS ---
Reason For Study: Afib/Flutter Procedure This was a 2D Doppler, Color Flow transthoracic echocardiogram. Exam performed in department. Left Ventricle Normal LV size. Left ventricular systolic function is normal. The estimated ejection fraction is 55 %. Unable to assess diastolic dysfunction due to arrhythmia. No regional wall motion abnormalities noted. Right Ventricle Normal RV size. Normal systolic function. Atria The left atrium is severely enlarged. Prominent eustachian valve. The right atrium is moderately enlarged. Mitral Valve The mitral valve is structurally normal. No prolapse or stenosis seen. Trivial mitral valve insufficiency. Tricuspid Valve Normal tricuspid valve. Mild (1+) tricuspid valve insufficiency. Pulmonary artery systolic pressure is 27 mmHg. Aortic Valve Trisinus/trileaflet aortic valve. There is no aortic stenosis. Trivial aortic valve insufficiency. Pulmonic Valve The pulmonic valve is not well visualized. Great Vessels Normal aortic root. Pericardium/Pleural No pericardial effusion. MMode/2D Measurements & Calculations LVIDd: 4.3 cm IVSd: 1.1 cm Ao root diam: 3.4 cm LVIDs: 3.4 cm LVPWd: 1.2 cm LA dimension: 4.6 cm RVDd: 3.9 cm FS: 21.2 % LAV(MOD-bp): 88.1 ml LA A4 area: 25.0 cm2 RA A4 area: 23.2 cm2 LAV(MOD-bp) Indexed: 42.8 ml/m2 LAV(MOD-sp2): 92.4 ml LAV(MOD-sp4): 75.6 ml Doppler Measurements & Calculations MV E max gagan: 94.4 cm/sec MV V2 max: 91.6 cm/sec Ao V2 max: 125.9 cm/sec MV max P.4 mmHg Ao max P.4 mmHg MV V2 mean: 49.8 cm/sec Ao V2 mean: 88.0 cm/sec MV mean P.2 mmHg Ao mean P.6 mmHg MV V2 VTI: 21.5 cm Ao V2 VTI: 24.1 cm AV (velocity ratio): 0.74 LV V1 max: 99.7 cm/sec PA V2 max: 95.8 cm/sec TR max gagan: 243.8 cm/sec LV V1 max P.0 mmHg PA V2 mean: 65.8 cm/sec TR max P.8 mmHg LV V1 mean P.9 mmHg LV V1 mean: 63.1 cm/sec LV V1 VTI: 17.8 cm ECHO/Echo Complete Interpretation Summary The estimated ejection fraction is 55 %. Mild (1+) tricuspid valve insufficiency. The left atrium is severely enlarged. The right atrium is moderately enlarged. Ordering Physician: Chele Locke Referring Physician: Chele Locke Performed By: Festus Neumann RCS
== END | disposition home or self-care (01) ==
LOC: CVS 14:51
PROVIDERS: PCP Internal Medicine; Referring Provider Internal Medicine Cardiovascular Disease; Visit Provider Internal Medicine Cardiovascular Disease
DX: R60.0 Localized edema (principal); I48.91 Unspecified atrial fibrillation; I10 Essential (primary) hypertension
CPT/HCPCS: 36415; 84439; 84443; 93306

== ENCOUNTER → 2023-01-04 | Outpatient (CLI) | payer MEDICARE, SELFPAY ==
--- NOTE | 2023-01-04 10:06 | STRESSREP_ITS ---
Stress Test Report Date: 01/04/2023 Procedure: Pharmacologic stress nuclear imaging study Indications: Atrial fibrillation Consent: Per the patient Procedure: The patient underwent pharmacologic (Regadenoson 0.4mg ) evaluation with a peak heart rate of 93 beats per minute (67%predicted maximal heart rate) and a peak blood pressure of 148/82 mmHg. The baseline ECG demonstrated atrial fibrillation. The peak pharmacologic ECG demonstrated no ischemic changes. Rare PVC noted. There was no complaint of chest discomfort during pharmacologic infusion or recovery. The patient was injected with 11.4 millicuries of technetium 99m Cardiolite and subsequently rest SPECT Cardiolite nuclear imaging was obtained in the horizontal long, vertical long, and short axis views. The patient underwent pharmacologic (Regadenoson) evaluation. The patient was injected with 36 millicuries of technetium 99m Cardiolite and subsequently stress SPECT Cardiolite nuclear imaging was obtained in the horizontal long, vertical long, and short axis views. A gated Cardiolite study at peak stress was obtained. The examination was stopped secondary to completion of protocol. Rest and stress SPECT Cardiolite nuclear imaging status post realignment, normalization, and attenuation correction demonstrate normal perfusion of all wall segments. There is end systolic thickening and brightening. The gated Cardiolite study demonstrates myocardial thickening and inward wall motion. The reported LVEF is 60%. Impression: 1. Pharmacologic (Regadenoson) evaluation 2. Peak pharmacologic ECG with no ischemic changes. 3. Rare PVC noted. 5. Rest and stress SPECT Cardiolite nuclear imaging demonstrate relative uniform tracer uptake and myocardial perfusion appearing within normal limits. 6. The gated Cardiolite study reports an LVEF of 60%. This note was generated with [employer] software. It may contain incorrect words, spelling, and punctuation that were not noted in checking the note before signing.
== END | disposition home or self-care (01) ==
PROVIDERS: PCP Internal Medicine; Referring Provider Internal Medicine Cardiovascular Disease; Visit Provider Internal Medicine Cardiovascular Disease
DX: R06.02 Shortness of breath (principal); I48.91 Unspecified atrial fibrillation
CPT/HCPCS: 78452; 93017; A9500; A4216; J2785

== ENCOUNTER → 2023-07-14 | Outpatient (CLI) | payer MEDICARE, SELFPAY ==
[2023-07-14 16:38] LABS: Absolute Lymphocyte Count 1.84 X10^3/uL (0.83-4.51); Absolute Neutrophil Count 5.8 X10^3/uL (2.0-7.7); Basophil# 0.05 X10^3/uL; Basophil% 0.6 % (0-1); Eosinophil# 0.17 X10^3/uL; Eosinophils% 1.9 % (0-5); Hematocrit 38.9 % (37-47); Lymphocyte # 1.84 X10^3/ul (0.83-4.51); Lymphocyte % 21.1 % (19-41); Mean Corp Hgb Conc 30.8 g/dL (32-36); Mean Corpuscular Hgb 28.1 pg (27.0-32.0); Mean Corpuscular Volume 91.1 fL (81-99); Mean Platelet Vol. 9.4 fl (6.2-12.0); Monocyte# 0.84 X10^3/uL; Monocyte% 9.6 % (0-10); NRBC Flagged by Analyzer 0 % (0-5); Neutrophil # 5.76 X10^3/uL (2.7-7.7); Platelet Count 257 K/mm3 (150-450); RBC Distribution Width CV 14.5 % (11.6-14.6); Red Blood Count 4.27 M/mm3 (4.2-5.4); White Blood Count 8.7 K/mm3 (4.4-11.0)
[2023-07-14 17:16] LABS: ALB/GLOB Ratio 0.8 RATIO (0.9-2.4); AST(SGOT) 12 U/L (15-37); Alanine Aminotransfer ALT/SGPT 22 U/L (13-56); Albumin, Serum 3.1 g/dL (3.2-5.0); Alkaline Phosphatase 110 U/L (45-117); Anion Gap 4 (5-15); BUN 22 mg/dL (7-18); BUN/Creat Ratio 17.9 RATIO (10-20); Calcium,Total 9.3 mg/dL (8.5-10.1); Chloride 108 mmol/L (98-107); Cholesterol 192 mg/dL (200); Creatinine, Serum 1.23 mg/dL (0.55-1.02); EST Glomerular Filtration Rate 44 mL/min (>60); Est Glom Filt Rate - Afr Amer 54 mL/min (>60); Globulin 3.8 g/dL (2.2-4.2); Glucose 100 mg/dL (74-106); High Density Lipoprotein 58 mg/dL; Potassium 4.1 mmol/L (3.5-5.1); Protein, Total 6.9 g/dL (6.4-8.2); Sodium Level 138 mmol/L (136-145); T4 Free Direct 0.73 ng/dL (0.76-1.46); Thyroid Stim Hormone (TSH) 6.74 uIU/mL (0.358-3.74); Triglycerides 100 mg/dL; Very Low Density Lipoprotein 20 mg/dL (5-40)
== END | disposition home or self-care (01) ==
LOC: BIMLAB 15:48
PROVIDERS: PCP Internal Medicine; Referring Provider Internal Medicine; Visit Provider Internal Medicine
DX: I10 Essential (primary) hypertension (principal); E03.9 Hypothyroidism, unspecified
CPT/HCPCS: 36415; 80053; 80061; 84439; 84443; 85025

== ENCOUNTER → 2023-07-29 | Outpatient (CLI) | payer MEDICARE, SELFPAY ==
[2023-07-29 13:40] LABS: Anion Gap 4 (5-15); BUN 23 mg/dL (7-18); BUN/Creat Ratio 19.3 RATIO (10-20); Calcium,Total 9.5 mg/dL (8.5-10.1); Chloride 109 mmol/L (98-107); Creatinine, Serum 1.19 mg/dL (0.55-1.02); EST Glomerular Filtration Rate 46 mL/min (>60); Est Glom Filt Rate - Afr Amer 56 mL/min (>60); Glucose 115 mg/dL (74-106); Potassium 4.4 mmol/L (3.5-5.1); Sodium Level 139 mmol/L (136-145)
== END | disposition home or self-care (01) ==
LOC: LAB 12:33
PROVIDERS: PCP Internal Medicine; Referring Provider Internal Medicine Cardiovascular Disease; Visit Provider Internal Medicine Cardiovascular Disease
DX: R60.0 Localized edema (principal); I48.91 Unspecified atrial fibrillation; I10 Essential (primary) hypertension
CPT/HCPCS: 36415; 80048

== ENCOUNTER 2023-10-03 08:53 | Emergency (ER) | payer MEDICARE, SELFPAY ==
[2023-10-03 08:54] VITALS: BP 164/148; PULSE 83; RESP 18; TEMP 36.4; O2SAT 97; BMI 36.9
--- NOTE | 2023-10-03 09:30 | EDS_ITS ---
HPI History of Present Illness Chief Complaint: Flank Pain Informant: patient Narrative Narrative: Patient has noticed pain in her right side for the past 2-3 days. No sudden onset of pain. Seems to be gradual. Has not been worsening but just has been persistent. Pain has not been severe. Hurts with certain movements, she denies any nausea or vomiting or changes with food or radiation of pain forward into her abdomen or back into her back. No pleuritic discomfort, no chest discomfort, no dyspnea. No other systemic symptoms or pains. She is on Eliquis because of a history of of A-fib and DVT. She denies any bleeding recently from anywhere. 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 She feels like it may be a pulled muscle but somebody told her that she may have a kidney stone and she should have it evaluated. She denies any major colicky nature of the pain. Only abdominal surgery she has had in the past is a remote hysterectomy. She is chronically incontinent of urine and has frequency, she has a pessary and follows with urology for this and has had no urinary changes lately or other urinary symptoms acutely. 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 Shoulder pain Trigger finger Unspecified fall, initial encounter Venous insufficiency (chronic) (peripheral) Home Medications apixaban 5 mg tablet (Eliquis) 5 mg PO BID #60 tabs 12/08/22 [Rx Last Taken Unknown] acetaminophen 650 mg tablet,extended release (Tylenol 8 Hour) 650 mg PO Q8H PRN fever or pain 12/23/22 [History Last Taken Unknown] diltiazem HCl 360 mg capsule,extended release 24 hr (Cardizem CD) 360 mg PO DAILY #90 caps 05/06/23 [Rx Last Taken Unknown] dexamethasone 6 mg tablet 6 mg PO DAILY #5 tabs 06/16/23 [Rx Last Taken Unknown] vibegron 75 mg tablet 75 mg PO DAILY 07/14/23 [History Last Taken Unknown] levothyroxine 25 mcg tablet See Rx Instructions .Route .COMPLEX #90 tabs 07/15/23 [Rx Last Taken Unknown] furosemide 20 mg tablet 20 mg PO DAILY #90 tabs 07/26/23 [Rx Last Taken Unknown] potassium chloride 10 mEq tablet,extended release 10 meq PO DAILY #90 tabs 07/26/23 [Rx Last Taken Unknown] Allergy/AdvReac Type Severity Reaction Status Date / Time latex Allergy Mild unknown Verified 10/03/23 08:53 Family History Brother Cancer Sister Cancer Other Heart disease Surgical History H/O hysterectomy for benign disease History of cataract surgery History of partial hysterectomy Social History Smoking Status: Never smoker alcohol intake: current alcohol intake frequency: holidays/special occasions only substance use type: does not use caffeine: Yes Type: coffee Number of servings: 1 what type of physical activity do you participate in: other details: dancing and active job ROS ROS ED Constitutional Constitutional ED: Denies chills or fever(s) Eyes Eyes: Denies change in vision or diplopia ENT ENT ED: Denies rhinorrhea or sore throat Cardiovascular Cardiovascular: Denies chest pain or palpitations Respiratory/Chest Respiratory/Chest: Reports other Details: Right flank pain see HPI ; Denies cough or dyspnea Gastrointestinal Gastrointestinal: Denies abdominal pain, diarrhea, nausea or vomiting Genitourinary Genitourinary ED: Denies dysuria or hematuria Musculoskeletal Musculoskeletal: Denies back pain or neck pain Integumentary Denies abscess or rash Neurologic Neurologic: Denies headache(s), paresthesias or weakness Psychiatric Psychiatric: Denies anxiety or suicidal thoughts EXAM Physical Exam Const Vital Signs: 10/03/23 08:54 Temperature 97.5 F L Temperature Source Temporal Pulse Rate 83 Respiratory Rate 18 Blood Pressure 164/148 H Blood Pressure Mean 153 Pulse Ox 97 Oxygen Delivery Method Room Air Positive well nourished, well developed and obese Constitutional Narrative: Well-appearing in no distress conversive General Appearance ED: well developed and NAD Nutritional Appearance: obese HEENT Reports moist mucous membranes normocephalic and atraumatic Eyes PERRL and EOMs intact bilaterally Neck full ROM and supple Chest Wall inspection of chest normal and palpation of chest normal Resp normal respiratory effort and clear to auscultation bilaterally GI non-tender and non-distended GI Narrative: Focal tenderness that is normal on inspection in the right lateral lower rib cage around ribs 9-10. No crepitance. No subcostal abdominal or flank tenderness. Auscultation: normoactive bowel sounds Palpation: soft Back/Spine no CVA tenderness General Back: other FROM Extremity normal to inspection General Extremety ED: Negative for edema, pulses abnormal or tenderness General Extremity: Negative for edema or pulses abnormal Neuro oriented x3, CN's II-XII intact bilaterally and no sensory deficits noted Sensorium / Orientation: awake and alert Motor Exam: strength 5/5 throughout Psych mental status grossly normal Skin no rashes or lesions noted and no wounds MDM MDM MDM Narrative Medical decision making narrative: History and exam are very consistent with this being musculoskeletal. I do not think she needs emergent blood or urine test, or advanced imaging of the abdomen/pelvis. Given her age I think it would be reasonable to obtain x-rays of the ribs in this area, which clearly is where the tenderness is, to screen for nontraumatic rib fractures and she agrees that is reasonable. This was done, 5 views my interpretation show no acute fracture and certainly no pneumothorax which she does not have symptoms of. She was given some Tylenol, at this time I recommend supportive care with continue to do Tylenol, topicals are okay to do, she is anticoagulated so would avoid ibuprofen which she knows, and follow-up with her doctor if the week does not result in any improvement, we discussed reasons to return to the ER she is comfortable with that plan. Radiography Diagnostic Testing: Clinical Impression(s) from Imaging Studies Ribs w/Chest X-Ray 10/03/23 10:11 IMPRESSION: No acute abnormality identified. Electronically Signed: Eliza Delgado MD at 10:35 EDT , Discharge Plan Triage Chief Complaint: Flank Pain ED Provider: Bharath Mecrer Dx/Rx/DC Orders Clinical Impression: Rib pain on right side Instructions: ED Rib Contusion or Minor Fracture Prescriptions: No Action acetaminophen [Tylenol 8 Hour] 650 mg tablet extended release 650 mg PO Q8H PRN (Reason: fever or pain) furosemide 20 mg tablet 20 mg PO DAILY Qty: 90 3RF potassium chloride 10 mEq tablet extended release 10 meq PO DAILY Qty: 90 3RF vibegron 75 mg tablet 75 mg PO DAILY dexamethasone 6 mg tablet 6 mg PO DAILY Qty: 5 0RF Eliquis 5 mg tablet 5 mg PO BID Qty: 60 12RF diltiazem HCl [Cardizem CD] 360 mg capsule,extended release 24hr 360 mg PO DAILY Qty: 90 3RF levothyroxine 25 mcg tablet See Rx Instructions .ROUTE .COMPLEX Qty: 90 1RF Dose Instruction: TAKE 1 TABLET BY MOUTH ONCE DAILY Rx Instructions: Take 25 mcg on 5 days and 50 mcg on 2 days. Primary Care Provider: Tracey Smith Referrals: Tracey Smith MD [Primary Care Provider] - 1 Week if not improving Disposition Disposition: Home, Self Care
[2023-10-03] MEDS: Acetaminophen 500 MG Tablet 1000 MG PO (09:40)
--- NOTE | 2023-10-03 10:11 | RAD_ITS ---
HISTORY: R ribcage pain. TECHNIQUE: XR Ribs Unilateral W/ PA Chest Min 3 Views. COMPARISON: None. FINDINGS: CARDIOMEDIASTINAL BORDERS: Cardiac silhouette within normal limits in size. Mediastinal contour unremarkable. LUNGS: Radiographically clear. PLEURA: No pleural effusion or pneumothorax seen. OSSEOUS STRUCTURES: Mild degenerative change. No acute displaced rib fracture identified. RAD/Ribs Uni Min 3V w/PA Chest IMPRESSION: No acute abnormality identified. Electronically Signed: Eliza Delgado MD at 10:35 EDT ,
[2023-10-03 10:53] VITALS: BP 160/97; PULSE 74; RESP 14; O2SAT 97
[2023-10-03 11:11] VITALS: BP 160/97; PULSE 74; RESP 16; TEMP 36.2; O2SAT 96
== END 2023-10-03 11:14 | disposition home or self-care (01) ==
PROVIDERS: Emergency Provider Emergency Medicine; PCP Internal Medicine; Visit Provider Emergency Medicine
DX: R07.81 Pleurodynia (principal); E66.9 Obesity, unspecified; Z86.718 Personal history of other venous thrombosis and embolism
CPT/HCPCS: 71101; 99282

== ENCOUNTER → 2024-01-12 | Outpatient (CLI) | payer MEDICARE, SELFPAY ==
[2024-01-12 16:49] LABS: Absolute Lymphocyte Count 1.57 X10^3/uL (0.83-4.51); Basophil# 0.06 X10^3/uL; Basophil% 0.8 % (0-1); Eosinophils% 1.3 % (0-5); Hematocrit 38.4 % (37-47); Hemoglobin 12.3 g/dL (12.0-15.0); Lymphocyte # 1.57 X10^3/ul (0.83-4.51); Lymphocyte % 20.8 % (19-41); Mean Corpuscular Hgb 29.7 pg (27.0-32.0); Mean Corpuscular Volume 92.8 fL (81-99); Mean Platelet Vol. 10.4 fl (6.2-12.0); Monocyte# 0.74 X10^3/uL; Monocyte% 9.8 % (0-10); NRBC Flagged by Analyzer 0 % (0-5); Neutrophil # 4.96 X10^3/uL (2.7-7.7); Neutrophil % 65.7 % (47-70); Platelet Count 214 K/mm3 (150-450); RBC Distribution Width CV 14.3 % (11.6-14.6); RBC Distribution Width SD 48.4 fl (35.1-43.9); Red Blood Count 4.14 M/mm3 (4.2-5.4); White Blood Count 7.6 K/mm3 (4.4-11.0)
[2024-01-12 17:26] LABS: AST(SGOT) 15 U/L (15-37); Alanine Aminotransfer ALT/SGPT 23 U/L (13-56); Albumin, Serum 3.5 g/dL (3.2-5.0); Alkaline Phosphatase 125 U/L (45-117); Anion Gap 8 (5-15); BUN 27 mg/dL (7-18); BUN/Creat Ratio 21.1 RATIO (10-20); Calcium,Total 8.9 mg/dL (8.5-10.1); Chloride 107 mmol/L (98-107); Creatinine, Serum 1.28 mg/dL (0.55-1.02); EST Glomerular Filtration Rate 42 mL/min (>60); Est Glom Filt Rate - Afr Amer 51 mL/min (>60); Globulin 3.4 g/dL (2.2-4.2); Glucose 135 mg/dL (74-106); Potassium 4.4 mmol/L (3.5-5.1); Protein, Total 6.9 g/dL (6.4-8.2); Sodium Level 139 mmol/L (136-145)
== END | disposition home or self-care (01) ==
LOC: BIMLAB 15:46
PROVIDERS: PCP Internal Medicine; Referring Provider Internal Medicine; Visit Provider Internal Medicine
DX: E03.9 Hypothyroidism, unspecified (principal); I10 Essential (primary) hypertension
CPT/HCPCS: 36415; 80053; 84443; 85025

== ENCOUNTER → 2024-05-02 | Outpatient (CLI) | payer MEDICARE, SELFPAY ==
[2024-05-02 15:14] LABS: Anion Gap 7 (5-15); BUN 28 mg/dL (7-18); BUN/Creat Ratio 23.3 RATIO (10-20); Calcium,Total 9.3 mg/dL (8.5-10.1); Chloride 105 mmol/L (98-107); EST Glomerular Filtration Rate 46 mL/min (>60); Est Glom Filt Rate - Afr Amer 55 mL/min (>60); Glucose 144 mg/dL (74-106); Potassium 3.9 mmol/L (3.5-5.1); Sodium Level 139 mmol/L (136-145)
== END | disposition home or self-care (01) ==
LOC: LAB 13:25
PROVIDERS: PCP Internal Medicine; Referring Provider Internal Medicine Cardiovascular Disease; Visit Provider Internal Medicine Cardiovascular Disease
DX: I10 Essential (primary) hypertension (principal); E03.9 Hypothyroidism, unspecified; R60.0 Localized edema
CPT/HCPCS: 36415; 80048; 84443

== ENCOUNTER → 2024-12-18 | Outpatient (CLI) | payer MEDICARE, SELFPAY ==
--- NOTE | 2024-12-18 09:56 | ECHOD_ITS ---
Reason For Study Reason For Study: GENERALIZED EDEMA Procedure This was a 2D Doppler, Color Flow transthoracic echocardiogram. Exam performed in department. Left Ventricle Normal size and thickness. Moderate generalized LV hypokinesis. Estimated LVEF 35-40%. Stage I diastolic dysfunction. Right Ventricle Normal right ventricle. Atria There is mild biatrial dilatation. Mitral Valve Trivial mitral valve insufficiency. Tricuspid Valve Moderate (2+) tricuspid valve insufficiency. Normal pulmonary artery pressure. Aortic Valve Trisinus/trileaflet aortic valve. Pulmonic Valve The pulmonic valve is not well visualized. Mild (1+) pulmonic valve insufficiency. Great Vessels Normal sized aortic root. Pericardium/Pleural No pericardial effusion. MMode/2D Measurements & Calculations LVIDd: 4.9 cm IVSd: 0.89 cm Ao root diam: 3.3 cm LVIDs: 3.8 cm LVPWd: 0.93 cm LA dimension: 4.2 cm RVDd: 3.6 cm FS: 21.5 % LAV(MOD-bp): 64.0 ml LVAd ap4: 26.8 cm2 SV(MOD-sp4): 28.9 ml LAV(MOD-bp) Indexed: 29.1 ml/m2 LVLd ap4: 7.4 cm SI(MOD-sp4): 13.2 ml/m2 LAV(MOD-sp2): 62.8 ml EDV(MOD-sp4): 79.9 ml LAV(MOD-sp4): 63.0 ml EDV(sp4-el): 82.0 ml LVAs ap4: 20.5 cm2 LVLs ap4: 7.1 cm ESV(MOD-sp4): 51.0 ml ESV(sp4-el): 50.5 ml EF(MOD-sp4): 36.2 % EF(sp4-el): 38.5 % SV(sp4-el): 31.6 ml LA A4 area: 22.9 cm2 LA dimension(2D): 3.9 cm RA A4 area: 20.7 cm2 TAPSE: 2.0 cm Doppler Measurements & Calculations MV E max gagan: 92.9 cm/sec Ao V2 max: 115.5 cm/sec LV V1 max: 96.9 cm/sec Ao max P.3 mmHg LV V1 max P.8 mmHg PA V2 max: 63.1 cm/sec TR max gagan: 272.5 cm/sec TR max P.7 mmHg ECHO/Echo Complete Interpretation Summary Moderate generalized LV hypokinesis. Estimated LVEF 35-40%. Stage I diastolic d ysfunction. There is mild biatrial dilatation. 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 Ordering Physician: Chele Locke Referring Physician: DAGO BRYANT Performed By: Mitzy Lucio RDCS
--- OUTSIDE RECORDS SUMMARY | 2024-12-18 21:59 | XMS RPT_ITS | CCD ---
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 Tracey Smith Primary Care Provider [phone] Dr. Tracey Smith Referring Provider [phone] ROBYN Youssef Attending Provider Dr. Yadiel Rogers Attending Provider ROBYN Youssef Referring Provider Dr. Tracey Smith Attending Provider [phone] Dr. Stephan Ayala Attending Provider [phone] Dr. Tracey Smith Primary Care Provider [phone]) Dr. Tracey Smith Referring Provider [phone] Dr. Tracey Smith Primary Care Provider 1([phone]) Dr. Tracey Smith Attending Provider [phone] Dr. Tracey Smith Referring Provider [phone] Dr. Stephan Ayala Attending Provider [phone] Dr. Chele Locke Attending Provider [phone] Didi Thibodeaux Attending Provider Unavailable Dr. Tracey Smith Primary Care Provider [phone]) Dr. Tracey Smith Referring Provider [phone] Dr. Chele Locke Referring Provider [phone] Dr. Chele Locke Other Provider Dr. Tracey Smith Primary Care Provider 1(33 [phone]) Dr. Tracey Smith Referring Provider [phone] ROBYN Brown Attending Provider [phone] Dr. Tracey Smith Attending Provider [phone] Dr. Chele Locke Attending Provider [phone] Dr. Tracey Smith Primary Care Provider [phone]) Dr. Tracey Smith Referring Provider [phone] ROBYN Brown Attending Provider Dr. Tracey Smith Attending Provider [phone] Chucky, Dr. Elaine Attending Provider [phone] Chele Locke Attending Unavailable Oleghe, Efewongbe Referring Unavailable Oleghe, Efewongbe Primary Care Unavailable Oleghe, Efewongbe Attending Unavailable Oleghe, Efewongbe Referring Unavailable Oleghe, Efewongbe Primary Care Unavailable Chele Locke Attending Unavailable ChuckyChele Referring Unavailable Oleghe, Efewongbe Primary Care Unavailable ChuckyChele decker Attending Unavailable Oleghe, Efewongbe Referring Unavailable Oleghe, Efewongbe Primary Care Unavailable ChuckyChele decker Attending Unavailable Oleghe, Efewongbe Referring Unavailable Oleghe, Efewongbe Primary Care Unavailable Trip Green Attending Unavailable Oleghe, Efewongbe Primary Care Unavailable ChuckyChele Attending Unavailable Oleghe, Efewongbe Referring Unavailable Oleghe, Efewongbe Primary Care Unavailable Oleghe, Efewongbe Attending Unavailable Oleghe, Efewongbe Referring Unavailable Oleghe, Efewongbe Primary Care Unavailable ChuckyChele Attending Unavailable Oleghe, Efewongbe Referring Unavailable Oleghe, Efewongbe Primary Care Unavailable Allergies Allergy Classification Reported Allergen(s) Allergy Type Date of Onset Reaction(s) Facility (12 sources) Latex Allergy to substance 10-20-2021 unknown [facility] (1 source) Latex Drug allergy (disorder) 10-24-2024 [facility] Repository Medications Current Medications Medication Drug Class(es) Dates Sig (Normalized) Sig (Original) 8 hr acetaminophen 650 mg extended release oral tablet (20 sources) Start: 10-05-2022 End: 12-23-2022 take 1 tablet by mouth every eight hours Acetaminophen (Tylenol 8 Hour) 650 mg tablet extended release Active 650 MG PO Q8H December 23, 2022 1:43pm Start: 09-06-2018 End: 10-20-2021 take 1 tablet by mouth every six hours Acetaminophen (Tylenol Extra Strength) 500 mg tablet Discontinued 500 MG PO EVERY 6 HOURS September 06, 2018 1:00am October 20, 2021 2:44pm dexamethasone 6 mg oral tablet (3 sources) Corticosteroid Start: 06-16-2023 take 6 mg by mouth once daily Dexamethasone Active 6 MG PO DAILY June 16, 2023 1:00am furosemide 20 mg oral tablet (2 sources) Loop Diuretic Start: 07-26-2023 take 20 mg by mouth once daily Furosemide Active 20 MG PO DAILY July 26, 2023 1:00am levothyroxine sodium 0.025 mg oral tablet (15 sources) l-Thyroxine Start: 07-15-2023 Levothyroxine Active 0 .ROUTE .COMPLEX July 15, 2023 12:40pm Take 25 mcg on 5 days and 50 mcg on 2 days. Start: 10-23-2022 End: 07-15-2023 take 1 tablet by mouth once daily Levothyroxine Discontinued 0 .ROUTE .COMPLEX May 05, 2023 12:59pm July 15, 2023 12:42pm TAKE 1 TABLET BY MOUTH ONCE DAILY naproxen sodium 220 mg oral tablet (20 sources) Nonsteroidal Anti-inflammatory Drug Start: 10-20-2021 take 1 tablet by mouth twice daily Naproxen Sodium (Aleve) 220 mg tablet Active 220 MG PO TWICE A DAY October 19, 2021 11:00pm Start: 08-04-2018 End: 09-06-2018 take 1 capsule by mouth twice daily Naproxen Sodium (Aleve) 220 mg capsule Discontinued 220 MG PO TWICE A DAY August 04, 2018 1:00am September 06, 2018 4:53pm Start: 08-09-2017 End: 08-04-2018 take 1 capsule by mouth every twelve hours Naproxen Sodium (Aleve) 220 mg capsule Discontinued 220 MG PO Q12H August 09, 2017 1:00am August 04, 2018 2:05pm potassium chloride 10 meq extended release oral tablet (2 sources) Start: 07-26-2023 take 10 mEq by mouth once daily Potassium Chloride Active 10 MEQ PO DAILY 90 July 26, 2023 1:00am Vibegron (3 sources) Start: 07-14-2023 take 75 mg by mouth once daily Vibegron Active 75 MG PO DAILY July 14, 2023 1:00am Start: 07-14-2023 take 75 mg by mouth once daily Vibegron Active 75 MG PO DAILY July 14, 2023 12:00am Completed/Discontinued Medications Medication Drug Class(es) Dates Sig (Normalized) Sig (Original) amLODIPine 2.5 mg oral tablet (12 sources) Dihydropyridine Calcium Channel Ely Start: 02-11-2021 End: 10-20-2021 take 2.5 mg by mouth once daily Amlodipine Discontinued 2.5 MG PO DAILY February 11, 2021 12:00am October 20, 2021 2:44pm apixaban 5 mg oral tablet (20 sources) Factor Xa Inhibitor Start: 08-19-2022 End: 12-08-2022 take 1 tablet by mouth twice daily Apixaban (Eliquis Dvt-Pe Treat 30d Start) 5 mg (74 tabs) tablets,dose pack Discontinued 5 MG PO TWICE A DAY 180 September 16, 2022 12:09pm October 05, 2022 1:01pm cephalexin 500 mg oral capsule (11 sources) Cephalosporin Antibacterial Start: 08-11-2022 End: 08-13-2022 take 500 mg by mouth every twelve hours Cephalexin Discontinued 500 MG PO EVERY 12 HOURS August 11, 2022 1:00am August 13, 2022 9:28am dextromethorphan hydrobromide 2 mg/ml / guaiFENesin 20 mg/ml oral solution (12 sources) Uncompetitive M-iakqnb-N-aspartate Receptor Antagonist, Sigma-1 Agonist Start: 08-09-2017 End: 08-04-2018 take 1 mL by mouth once Dextromethorphan- Guaifenesin (Adult Robitussin Peak Cold Dm) 10-100 mg/5 mL liquid Discontinued 10 ML PO ONCE August 09, 2017 1:00am August 04, 2018 2:05pm 24 hr dilTIAZem hydrochloride 360 mg extended release oral capsule (20 sources) Calcium Channel Ely Start: 12-23-2022 End: 05-06-2023 take 1 capsule by mouth once daily Diltiazem Hcl (Cardizem Cd) 360 mg capsule,extended release 24hr Discontinued 360 MG PO DAILY February 15, 2023 8:35am May 06, 2023 3:47pm short supply d/t pt lost some of the medication she had loaded into a pill dispenser, thank you Start: 10-05-2022 End: 12-23-2022 take 120 mg by mouth twice daily Diltiazem Hcl Discontinued 120 MG PO TWICE A DAY December 08, 2022 10:30am December 23, 2022 2:26pm diphenhydrAMINE hydrochloride 25 mg oral tablet (12 sources) Histamine-1 Receptor Antagonist Start: 08-04-2018 End: 10-20-2021 take 1 tablet by mouth at bedtime Diphenhydramine Hcl ([place] Plus Allergy) 25 mg tablet Discontinued 25 MG PO AT BEDTIME August 04, 2018 1:00am October 20, 2021 2:44pm doxycycline monohydrate 100 mg oral capsule (12 sources) Tetracycline-clas s Drug Start: 05-11-2022 End: 08-13-2022 take 100 mg by mouth twice daily Doxycycline Monohydrate Discontinued 100 MG PO TWICE A DAY May 11, 2022 12:00am August 13, 2022 9:28am L-desoxyephedrine 50 mg nasal inhaler (12 sources) Start: 08-09-2017 End: 08-04-2018 L-desoxyephedrine 50 mg nasal inhaler Discontinued MG INTRANASAL August 09, 2017 1:00am August 04, 2018 2:05pm Start: 08-09-2017 End: 08-04-2018 L-desoxyephedrine 50 mg nasa l inhaler Discontinued MG INTRANASAL August 09, 2017 12:00am August 04, 2018 1:05pm meloxicam 7.5 mg oral tablet (20 sources) Nonsteroidal Anti-inflammatory Drug Start: 09-06-2018 End: 10-20-2021 take 7.5 mg by mouth once daily Meloxicam Discontinued 7.5 MG PO DAILY November 28, 2018 3:18pm October 20, 2021 2:44pm Problems Active Problems Problem Classification Problem Date Documented Da te Episodic/Chronic Cardiac dysrhythmias (20 sources) Cardiac arrhythmia; Translations: [Cardiac arrhythmia, unspecified] Onset: 10-26-2024 08-24-2022 Chronic Chronic ulcer of skin (20 sources) Chronic non-pressure ulcer of calf extending to fat level; Translations: [Non-pressure chronic ulcer of left calf with fat layer exposed] 08-13-2022 Chronic E Codes: Fall (20 sources) Fall; Translations: [Unspecified fall, initial encounter] 08-09-2017 Episodic Essential hypertension (20 sources) Hypertensive disorder; Translations: [Essential (primary) hypertension] Onset: 10-26-2024 07-31-2022 Chronic Open wounds of extremities (16 sources) Laceration of finger with foreign body; Translations: [Laceration with foreign body of right middle finger without damage to nail, initial encounter] 08-11-2022 Episodic Osteoarthritis (12 sources) Osteoarthritis of joint of right shoulder region; Translations: [Primary osteoarthritis, right shoulder] 10-19-2018 Chronic Other aftercare (9 sources) Surgical follow-up; Translations: [Encounter for removal of sutures] 08-24-2022 Episodic Other aftercare (5 sources) Encounter for removal of sutures; Translations: [Encounter for removal of sutures] 08-24-2022 Episodic Other connective tissue disease (12 sources) Triggering of digit; Translations: [Trigger finger, unspecified finger] 10-20-2021 Episodic Other diseases of veins and lymphatics (10 sources) Peripheral venous insufficiency; Translations: [Venous insufficiency (chronic) (peripheral)] 08-13-2022 Episodic Other diseases of veins and lymphatics (13 sources) Venous insufficiency (chronic) (peripheral); Translations: [Venous (peripheral) insufficiency, unspecified] 08-19-2022 Episodic Other ear and sense organ disorders (12 sources) Hearing loss; Translations: [Unspecified hearing loss, unspecified ear] 09-06-2018 Chronic Other lower respiratory disease (1 source) Rib pain; Translations: [Pleurodynia] 10-03-2023 Episodic Other nervous system disorders (11 sources) Carpal tunnel syndrome; Translations: [Carpal tunnel syndrome, right upper limb] 10-19-2018 Chronic Other nervous system disorders (1 source) Carpal tunnel syndrome of right wrist; Translations: [Carpal tunnel syndrome, right upper limb] 06-30-2023 Chronic Other screening for suspected conditions (not mental disorders or infectious disease) (6 sources) Raised TSH level; Translations: [Other specified abnormal findings of blood chemistry] 10-22-2022 Episodic Phlebitis; thrombophlebitis and thromboembolism (18 sources) Deep venous thrombosis; Translations: [Acute embolism and thrombosis of unspecified deep veins of unspecified lower extremity] Onset: 10-26-2024 10-05-2022 Episodic Residual codes; unclassified (10 sources) Bilateral lower limb edema; Translations: [Localized edema] 08-13-2022 Episodic Residual codes; unclassified (16 sources) Localized edema; Translations: [Edema] Onset: 10-26-2024 08-19-2022 Episodic Skin and subcutaneous tissue infections (16 sources) Cellulitis of left ankle; Translations: [Cellulitis of left lower limb] 05-11-2022 Episodic Superficial injury; contusion (20 sources) Contusion of knee; Translations: [Contusion of right knee, initial encounter] 08-09-2017 Episodic Thyroid disorders (10 sources) Hypothyroidism; Translations: [Hypothyroidism, unspecified] Onset: 01-24-2024 10-23-2022 Chronic Varicose veins of lower extremity (12 sources) Ankle ulcer; Translations: [Varicose veins of unspecified lower extremity with ulcer of ankle] 07-31-2022 Episodic Viral infection (6 sources) Disease caused by 2019-nCoV; Translations: [COVID-19] 06-16-2023 Episodic Past or Other Problems Problem Classification Problem Date Documented Da te Episodic/Chronic Other skin disorders (1 source) Localized swelling, mass and lump, trunk; Translations: [Localized swelling, mass and lump, trunk] Onset: 01-12-2024 Episodic Results Test Name Value Interpretation Reference Range Facility Office Visit Reporton 2024 Office Visit Report [facility] [address] [place] [address] OFFICE VISIT Date of Service: MR#: [id number] Acct: [id number] Patient: YOSEF JENNINGS Rep #: [id number] : 1940 Provider: Trip Green Age/Sex: 84/F Location: [place] Status: Signed Intake Vital Signs 10/24/24 08:55 10/27/24 16:20 Height 5 ft 6.14 in Weight: 250 lb BMI 40.1 BP 127/68 H 141/86 H Blood Pressure Location Lt brachial Lt brachial Position Sitting Sitting Respiration 18 18 Pulse 53 L 69 Pulse Source NIBP NIBP Intake Visit Reasons: Amb Documentation Chief Complaint: 6 M FU Allergies latex Allergy (Mild, Verified 10/24/24 14:39) unknown Have you fallen in the past year?: No Nursing Note Pt presents today for follow up BP check from recent OV to determine effectiveness of medication changes. Her BP and heart rate are as follows: BP: 141/86 HR: 69 No concerns voiced at this time. Clinical Quality Measures Falls Risk Screening/Assistive Devices Have you fallen in the past year?: No 11/13/24 1403 Date Chele Locke MD Cosigner Signature: Date (if applicable) CC: Trip Green; Dr. Chele Locke MD [facility] Cardiology Visit Reporton Cardiology Visit Report [facility] [address] [place] [address]. [address] [place] [address] OFFICE VISIT Date of Service: 10/24/24 MR#: [id number] Acct: [id number] Name: YOSEF JENNINGS Rep #: [id number] : 1940 Provider: Dr. Chele Locke MD Age/Sex: 84/F Location: [facility] Status: Signed HPI HPI History of Present Illness Details: This pleasant lady with history of atrial fibrillation and DVT of the lower extremity is here for a follow-up visit. Denies any complaints of chest pains or shortness of breath. Her lower extremity edema remains the same. 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 Accompanied by: Self Is patient in pain?: No Allergies latex Allergy (Mild, Verified 10/24/24 14:39) unknown Medications ???Medication ???Instructions ???Recorded ???Confirmed ???Type acetaminophen 650 mg 650 mg PO Q8H PRN fever or pain 10/24/24 History tablet,extended release (Tylenol 8 Hour) vibegron 75 mg tablet 75 mg PO DAILY 07/14/23 10/24/24 H istory apixaban 5 mg tablet (Eliquis) 5 mg PO BID #60 tabs 12/15/2310/10 Rx furosemide 40 mg tablet 40 mg PO QDAY #90 tabs 04/27/24 Rx potassium chloride 20 mEq 20 meq PO QDAY #90 tabs 04/27/24 0 10/24/24 Rx tablet,extended release levothyroxine 75 mcg tablet 75 mcg PO DAILY #60 tabs 05/03/24 10/24/24 Rx diltiazem HCl 360 mg 360 mg PO DAILY #90 caps 07/10/24 10/24/24 Rx capsule,extended release 24 hr (Cardizem CD) Ejection fraction %: 55 Have you fallen in the past year?: No PFSH Medical History Arrhythmia Arthritis Atrial fibrillation Bilateral edema of lower extremity Carpal tunnel syndrome of right wrist Cellulitis of left ankle Contusion of right knee Contusion of right shoulder COVID-19 DVT (deep venous thrombosis) Elevated TSH Encounter for removal of sutures Hearing loss Hypertension Hypothyroidism Infection of stomach Laceration of right middle finger with foreign body w/o damage to nail Localized swelling of chest wall 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 Shoulder pain Trigger finger Unspecified fall, initial encounter Venous insufficiency (chronic) (peripheral) Surgical History H/O hysterectomy for benign disease History of cataract surgery History of partial hysterectomy Family History Brother Cancer Sister Cancer Other Heart disease Social History Smoking Status: Never smoker alcohol intake: current alcohol intake frequency: holidays/special occasions only substance use type: does not use caffeine: Yes Type: coffee Number of servings: 1 what type of physical activity do you participate in: other details: dancing and active job ROS Const Const: Positive for fatigue and weakness (BLE); Negative for headache(s) or weight gain ENT ENT: Negative for headache(s), dizziness, Nosebleed/epistaxis or balance problems Cardio Chest Pain: No Palpitations: No Edema: Left (LLE) Muscle aches with walking: None Resp Respiratory: Positive for SOB with activity; Negative for SOB at rest or SOB orthopnea SOB lying down GI GI: Negative nausea, vomiting or heartburn Musc Musc: Positive for joint pain; Negative for muscle aches/ myalgia, muscle weakness or balance problems Neuro Neuro: Positive for weakness (BLE); Negative for dizziness, lightheadedness, near syncope, syncope or headache(s) Endo Endo: Positive for fatigue Cardiology Exam Const Appearance: comfortable and no acute distress Nutritional Appearance: well nourished Neck Neck: no JVD Carotids: Negative bruit Chest Auscultation: Bilateral: Clear to Auscultation Cardio Rate: regular rate Rhythm: irregularly irregular Heart sounds: S1 normal and S2 normal Neuro General: patient alert, patient awake and patient oriented x3 Extremities Lower Extremity Edema: +1: Right and +2: Left Supplemental Info Supplemental Information ECHOCARDIOGRAM 11/02/22 Interpretation Summary The estimated ejection fraction is 55 %. Mild (1+) tricuspid valve insufficiency. The left atrium is severely enlarged. The right atrium is moderately enlarged. STRESS TEST 12/11/22: Rest and stress SPECT Cardiolite nuclear imaging status post realignment (more content not included)... Normal [facility] Office Visit Reporton 2023 Office Visit Report [facility] [place] [address] OFFICE VISIT Date of Service: 05/04/24 MR#: [id number] Acct: [id number] Patient: YOSEF JENNINGS Rep #: [id number] : 1940 Provider: Dr. Chele Locke MD Age/Sex: 83/F Location: [place] Status: Signed Intake Vital Signs 04/27/24 08:38 05/04/24 16:35 Height 5 ft 6.14 in BP 165/89 H Blood Pressure Location Lt brachial Position Sitting Respiration 18 Pulse 51 L Pulse Source NIBP Comment 2nd BP on R-Brachial: 163/95 HR: 73 Intake Visit Reasons: 1 WK FU Chief Complaint: 6 M FU Allergies latex Allergy (Mild, Verified 10/24/24 14:39) unknown Have you fallen in the past year?: No Nursing Note Noted elevated blood pressure. Pt given ample time to rest prior to check. Clinical Quality Measures Falls Risk Screening/Assistive Devices Have you fallen in the past year?: No 11/13/24 1406 Date Chele Locke MD Cosigner Signature: Date (if applicable) CC: Normal [facility] Basic Metabolic Profile (BMP )on 05-02-2024 BUN/CRE 23.3 RATIO High 04-30 [facility] Comment on above: Performed By: #### L 500.2500 #### [facility] [address] [facility] [place], [address] CA,Total 9.3 mg/dL Normal 8.5-10.1 [facility] Comment on above: Performed By: #### L 500.2500 #### [facility] [address] [place], [address] Chloride [Moles/Vol] 105 mmol/L Normal 98-107 [facility] Comment on above: Performed By: #### L 500.2500 #### [facility] [address] [place], [address] CO2 [Moles/Vol] 27.0 mmol/L Normal 21.0-32.0 [facility] Comment on above: Performed By: #### L 500.2500 #### [facility] [address] [place], [address] Creatinine [Mass/Vol] 1.20 mg/dL High 0.55-1.02 [facility] Comment on above: Result Comment: The validity of the calculated GFR GFRAA in patients over 70 years has not been determined. Clinical correlation is essential. Performed By: #### L 500.2500 #### [facility] [address] [place], [address] EST GFR - AA 55 mL/min Low >60 [facility] Comment on above: Result Comment: Afri can Ugandan GFR Calc Performed By: #### L 500.2500 #### [facility] [address] [place], [address] GAP 7 Normal 5-15 [facility] Comment on above: Performed By: #### L 500.2500 #### [facility] [address] [place], [address] GFR/1.73 sq M.predicted among non-blacks MDRD (S/P/Bld) [Vol rate/Area] 46 mL/min/{1.73_m2} Low >60 [facility] Comment on above: Result Comment: Non- GFR Calc Performed By: #### L 500.2500 #### [facility] [address] [place], [address] Glucose [Mass/Vol] 144 mg/dL High 74-106 [facility] Comment on above: Result Comment: Fast ing Glucose result greater than or equal to 126 mg/dL suggests DIABETES MELLITUS per A.D.A. criteria. Performed By: #### L 500.2500 #### [facility] [address] [place], [address] Potassium [Moles/Vol] 3.9 mmol/L Normal 3.5-5.1 [facility] Comment on above: Performed By: #### L 500.2500 #### [facility] [address] [place], [address] Sodium [Moles/Vol] 139 mmol/L Normal 136-145 [facility] Comment on above: Performed By: #### L 500.2500 #### [facility] [address] [place], [address] Urea nitrogen [Mass/Vol] 28 mg/dL High 7-18 [facility] Comment on above: Performed By: #### L 500.2500 #### [facility] [address] [place], [address] Thyroid Stim Hormone (TSH)on 05-02-2024 TSH 12.300 uIU/mL High 0.358-3.740 [facility] Comment on above: Performed By: #### L 501.9520 #### [facility] [address] [place], [place], [address] Cardiology Visit Reporton Cardiology Visit Report [facility] [address] [place], [place] [address] OFFICE VISIT Date of Service: 04/27/24 MR#: [id number] Acct: [id number] Name: YOSEF JENNINGS Rep #: [id number] : 1940 Provider: Dr. Chele Locke MD Age/Sex: 83/F Location: [facility] Status: Signed [facility] History of Present Illness Details: This lady is here for follow-up visit. Denies any chest pains. No shortness of breath. No palpitations. 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 Accompanied by: Self Is patient in pain?: No Allergies latex Allergy (Mild, Verified 04/27/24 14:47) unknown Medications ???Medication ???Instructions ???Recorded ???Confirmed ???Type acetaminophen 650 mg 650 mg PO Q8H PRN fever or pain 12/23/22 04/27/24 History tablet,extended release (Tylenol 8 Hour) diltiazem HCl 360 mg 360 mg PO DAILY #90 caps 05/06/23 04/27/24 Rx capsule,extended release 24 hr (Cardizem CD) vibegron 75 mg tablet 75 mg PO DAILY 07/14/23 04/27/24 History furosemide 20 mg tablet 20 mg PO DAILY #90 tabs 07/26/23 04/27/24 Rx potassium chloride 10 mEq 10 meq PO DAILY #90 tabs 07/26/23 04/27/24 Rx tablet,extended release apixaban 5 mg tablet (Eliquis) 5 mg PO BID #60 tabs 12/15/23 04/27/24 Rx levothyroxine 50 mcg tablet 50 mcg PO DAILY #60 tabs 01/18/24 04/27/24 Rx Ejection fraction %: 55 Have you fallen in the past year?: No PFSH Medical History Arrhythmia Arthritis Atrial fibrillation Bilateral edema of lower extremity Carpal tunnel syndrome of right wrist Cellulitis of left ankle Contusion of right knee Contusion of right shoulder COVID-19 DVT (deep venous thrombosis) Elevated TSH Encounter for removal of sutures Hearing loss Hypertension Hypothyroidism Infection of stomach Laceration of right middle finger with foreign body w/o damage to nail Localized swelling of chest wall 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 Shoulder pain Trigger finger Unspecified fall, initial encounter Venous insufficiency (chronic) (peripheral) Surgical History H/O hysterectomy for benign disease History of cataract surgery History of partial hysterectomy Family History Brother Cancer Sister Cancer Other Heart disease Social History Smoking Status: Never smoker alcohol intake: current alcohol intake frequency: holidays/special occasions only substance use type: does not use caffeine: Yes Type: coffee Number of servings: 1 what type of physical activity do you participate in: other details: dancing and active job ROS Const Const: Negative for fatigue, weakness, headache(s) or weight gain ENT ENT: Negative for headache(s), dizziness, Nosebleed/epistaxis or balance problems Cardio Chest Pain: No Palpitations: No Edema: Left and None Muscle aches with walking: None Resp Respiratory: Negative for SOB with activity, SOB at rest or SOB orthopnea SOB lying down GI GI: Negative nausea, vomiting or heartburn Musc Musc: Positive for joint pain (chronic back); Negative for muscle aches/ myalgia, muscle weakness or balance problems Neuro Neuro: Negative for dizziness, lightheadedness, near syncope, syncope, headache(s) or weakness Endo Endo: Negative for fatigue Cardiology Exam Const Appearance: comfortable and no acute distress Nutritional Appearance: well nourished Neck Neck: no JVD Carotids: Negative bruit Chest Auscultation: Bilateral: Clear to Auscultation Cardio Rate: regular rate Rhythm: irregularly irregular Heart sounds: S1 normal and S2 normal Neuro General: patient alert, patient awake and patient oriented x3 Extremities Lower Extremity Edema: +1: Right and +2: Left Supplemental Info Supplemental Information ECHOCARDIOGRAM 11/02/22 Interpretation Summary The estimated ejection fraction is 55 %. Mild (1+) tricuspid valve insufficiency. The left atrium is severely enlarged. The right atrium is moderately enlarged. STRESS TEST 12/11/22: Rest and stress SPECT Cardiolite nuclear imaging status post realignment, normalization, and attenuation correction demonstrate normal perfusion of all wall segments. There is end systolic thickening and brightening. The gated Cardiolite study demonstrates myocardial thickening and inward wall motion (more content not included)... Normal [facility] CBC W/Diff, Automatedon 07-0 -2023 Absolute Lymph 1.57 X10 3/uL Normal 0.83-4.51 [facility] Comment on above: Performed By: #### L 100.0100, L500.4050, L501.9520 #### [facility] [address] [place], [address] Absolute Neut 5.0 X10 3/uL Normal 2.0-7.7 [facility] Comment on above: Performed By: #### L 100.0100, L500.4050, [id number] #### [facility] [address] [place], [address] Basophils/100 WBC (Bld) 0.8 % Normal 0-1 [facility] Comment on above: Performed By: #### L 100.0100, L500.4050, [id number] #### [facility] [address] [place], [address] Eosinophils/100 WBC (Bld) 1.3 % Normal 0-5 [facility] Comment on above: Performed By: #### L 100.0100, L500.4050, [id number] #### [facility] [address] [place], [address] Erythrocyte distribution width (RBC) [Ratio] 14.3 % Normal 11.6-14.6 [facility] Comment on above: Performed By: #### L 100.0100, L500.4050, [id number] #### [facility] [address] [place], [address] Hematocrit (Bld) [Volume fraction] 38.4 % Normal 37-47 [facility] Comment on above: Performed By: #### L 100.0100, L500.4050, [id number] #### [facility] [address] [place], [address] Hemoglobin (Bld) [Mass/Vol] 12.3 g/dL Normal 12.0-15.0 [facility] Comment on above: Performed By: #### L 100.0100, L500.4050, [id number] #### [facility] [address] [place], [address] IG% 1.600 High 0.0-0.9 [facility] Comment on above: Result Comment: IG% - Immature Granulocytes (promyelocytes, myelocytes and metamyelocytes) > 1% indicates that a LEFT SHIFT is Present. Performed By: #### L 100.0100, L500.4050, [id number] #### [facility] [address] [place], [address] Lymphocytes/100 WBC (Bld) 20.8 % Normal 19-41 [facility] Comment on above: Performed By: #### L 100.0100, L500.4050, [id number] #### [facility] [address] [place], [address] MCH (RBC) [Entitic mass] 29.7 pg Normal 27.0-32.0 [facility] Comment on above: Performed By: #### L 100.0100, L500.4050, [id number] #### [facility] [address] [place], [address] MCHC (RBC) [Mass/Vol] 32.0 g/dL Normal 32-36 [facility] Comment on above: Performed By: #### L 100.0100, L500.4050, [id number] #### [facility] [address] [place], [address] MCV (RBC) [Entitic vol] 92.8 fL Normal 81-99 [facility] Comment on above: Performed By: #### L 100.0100, L500.4050, [id number] #### [facility] [address] [place], [address] Monocytes/100 WBC (Bld) 9.8 % Normal 0-10 [facility] Comment on above: Performed By: #### L 100.0100, L500.4050, [id number] #### [facility] [address] [place], [address] Neutrophils/100 WBC (Bld) 65.7 % Normal 47-70 [facility] Comment on above: Performed By: #### L 100.0100, L500.4050, [id number] #### [facility] [address] [place], [address] Nucleated RBC (Bld) [#/Vol] 0 10*3/uL Normal 0-5 [facility] Comment on above: Performed By: #### L 100.0100, L500.4050, [id number] #### [facility] [address] [place], [address] Platelet mean volume (Bld) [Entitic vol] 10.4 fL Normal 6.2-12.0 [facility] Comment on above: Performed By: #### L 100.0100, L500.4050, [id number] #### [facility] [address] [place], [address] Platelets (Bld) [#/Vol] 214 10*3/uL Normal 150-450 [facility] Comment on above: Performed By: #### L 100.0100, L500.4050, [id number] #### [facility] [address] [place], [address] RBC (Bld) [#/Vol] 4.14 10*6/uL Low 4.2-5.4 [facility] Comment on above: Performed By: #### L 100.0100, L500.4050, [id number] #### [facility] [address] [place], [address] RDW SD 48.4 fl High 35.1-43.9 [facility] Comment on above: Performed By: #### L 100.0100, L500.4050, [id number] #### [facility] [address] [place], [address] WBC (Bld) [#/Vol] 7.6 10*3/uL Normal 4.4-11.0 [facility] Comment on above: Performed By: #### L 100.0100, L500.4050, [id number] #### [facility] [address] [place], [address] Comprehensive Metabolic Prof ilon 01-12-2024 Albumin [Mass/Vol] 3.5 g/dL Normal 3.2-5.0 [facility] Comment on above: Performed By: #### L 100.0100, L500.4050, [id number] #### [facility] [address] [place], [address] Albumin/Globulin [Mass ratio] 1.0 {ratio} Normal 0.9-2.4 [facility] Comment on above: Performed By: #### L 100.0100, L500.4050, [id number] #### [facility] [address] [place], [address] ALK P 125 U/L High 45-117 [facility] Comment on above: Performed By: #### L 100.0100, L500.4050, [id number] #### [facility] [address] [place], [address] ALT [Catalytic activity/Vol] 23 U/L Normal 13-56 [facility] Comment on above: Performed By: #### L 100.0100, L500.4050, [id number] #### [facility] [address] [place], [address] AST [Catalytic activity/Vol] 15 U/L Normal 15-37 [facility] Comment on above: Performed By: #### L 100.0100, L500.4050, [id number] #### [facility] [address] [place], [address] Bilirubin [Mass/Vol] 0.30 mg/dL Normal 0.20-1.00 [facility] Comment on above: Result Comment: For patients on eltrombopag therapy, use of Dimension Davis TBIL is not recommended. Performed By: #### L 100.0100, L500.4050, [id number] #### [facility] [address] [place], [address] BUN/CRE 21.1 RATIO High 10-20 [facility] Comment on above: Performed By: #### L 100.0100, L500.4050, [id number] #### [facility] [address] [place], [address] CA,Total 8.9 mg/dL Normal 8.5-10.1 [facility] Comment on above: Performed By: #### L 100.0100, L500.4050, [id number] #### [facility] [address] [place], [address] Chloride [Moles/Vol] 107 mmol/L Normal 98-107 [facility] Comment on above: Performed By: #### L 100.0100, L500.4050, [id number] #### [facility] [address] [place], [address] CO2 [Moles/Vol] 24.0 mmol/L Normal 21.0-32.0 [facility] Comment on above: Performed By: #### L 100.0100, L500.4050, [id number] #### [facility] [address] [place], [address] Creatinine [Mass/Vol] 1.28 mg/dL High 0.55-1.02 [facility] Comment on above: Result Comment: The validity of the calculated GFR GFRAA in patients over 70 years has not been determined. Clinical correlation is essential. Performed By: #### L 100.0100, L500.4050, L501.9520 #### [facility] [address] [place], [address] EST GFR - AA 51 mL/min Low >60 [facility] Comment on above: Result Comment: Afri can Ugandan GFR Calc Performed By: #### L 100.0100, L500.4050, [id number] #### [facility] [address] [place], [address] GAP 8 Normal 5-15 [facility] Comment on above: Performed By: #### L 100.0100, L500.4050, [id number] #### [facility] [address] [place], [address] GFR/1.73 sq M.predicted among non-blacks MDRD (S/P/Bld) [Vol rate/Area] 42 mL/min/{1.73_m2} Low >60 [facility] Comment on above: Result Comment: Non- GFR Calc Performed By: #### L 100.0100, L500.4050, L501.9520 #### [facility] [address] [place], [address] Globulin (S) [Mass/Vol] 3.4 g/dL Normal 2.2-4.2 [facility] Comment on above: Performed By: #### L 100.0100, L500.4050, [id number] #### [facility] [address] [place], [address] Glucose [Mass/Vol] 135 mg/dL High 74-106 [facility] Comment on above: Result Comment: Fast ing Glucose result greater than or equal to 126 mg/dL suggests DIABETES MELLITUS per A.D.A. criteria. Performed By: #### L 100.0100, L500.4050, L501.9520 #### [facility] [address] [place], [address] Potassium [Moles/Vol] 4.4 mmol/L Normal 3.5-5.1 [facility] Comment on above: Performed By: #### L 100.0100, L500.4050, [id number] #### [facility] [address] [place], [address] Sodium [Moles/Vol] 139 mmol/L Normal 136-145 [facility] Comment on above: Performed By: #### L 100.0100, L500.4050, [id number] #### [facility] [address] [place], [address] T PROT 6.9 g/dL Normal 6.4-8.2 [facility] Comment on above: Performed By: #### L 100.0100, L500.4050, [id number] #### [facility] [address] [place], [address] Urea nitrogen [Mass/Vol] 27 mg/dL High 7-18 [facility] Comment on above: Performed By: #### L 100.0100, L500.4050, [id number] #### [facility] [address] [place], [address] Internal Medicine Office Vis larry 01-12-2024 Internal Medicine Office Visit [facility] [address] [place] [address] OFFICE VISIT Date of Service: 01/12/24 MR#: [id number] Acct: [id number] Name: YOSEF JENNINGS Rep #: [id number] : 1940 Provider: Dr. Tracey matthews MD Age/Sex: 83/F Location: [facility] Status: Signed Intake Vital Signs 07/14/23 15:24 10/19/23 09:15 01/12/24 15:17 Height 5 ft 6 in 5 ft 6.14 in 5 ft 6 in Weight: 253 lb BMI 40.8 BP 150/90 H Blood Pressure Location Lt brachial Position Sitting Respiration 18 Pulse 75 Pulse Source Monitor Temp 97.5 F L Temp Source Temporal Pulse Oximetry (%) 97 Oxygen Delivery Method room air Intake Visit Reasons: 6 M FU Chief Complaint: 6 M FU Is patient in pain?: Yes (BILATERAL LOWER EXTREMITIES L>R) Pain scale (1-10): 5 Allergies latex Allergy (Mild, Verified 01/12/24 15:09) unknown Medications ???Medication ???Instructions ???Recorded ???Confirmed ???Type acetaminophen 650 mg 650 mg PO Q8H PRN fever or pain 12/23/22 01/12/24 History tablet,extended release (Tylenol 8 Hour) diltiazem HCl 360 mg 360 mg PO DAILY #90 caps 05/06/23 01/12/24 Rx capsule,extended release 24 hr (Cardizem CD) vibegron 75 mg tablet 75 mg PO DAILY 07/14/23 01/12/24 History furosemide 20 mg tablet 20 mg PO DAILY #90 tabs 07/26/23 01/12/24 Rx potassium chloride 10 mEq 10 meq PO DAILY #90 tabs 07/26/23 01/12/24 Rx tablet,extended release levothyroxine 25 mcg tablet See Rx Instructions .Route 11/18/23 01/12/24 Rx .COMPLEX #90 tabs apixaban 5 mg tablet (Eliquis) 5 mg PO BID #60 tabs 12/15/23 01/12/24 Rx Have you fallen in the past year?: No PFSH Medical History (Updated 01/12/24 @ 15:[address] Tracey Smith MD) Localized swelling of chest wall COVID-19 Hypothyroidism Elevated TSH DVT (deep venous thrombosis) Atrial fibrillation Encounter for removal of sutures Arrhythmia Non-pressure chronic ulcer of left calf with fat layer exposed Venous insufficiency (chronic) (peripheral) Bilateral edema of lower extremity Laceration of right middle finger with foreign body w/o damage to nail Cellulitis of left ankle Trigger finger Hypertension Carpal tunnel syndrome of right wrist Osteoarthritis of right shoulder Arthritis Hearing loss Contusion of right knee Contusion of right shoulder Unspecified fall, initial encounter Infection of stomach Shoulder pain Surgical History History of cataract surgery H/O hysterectomy for benign disease History of partial hysterectomy Family History Brother Cancer Sister Cancer Other Heart disease Social History Smoking Status: Never smoker alcohol intake: current alcohol intake frequency: holidays/special occasions only substance use type: does not use caffeine: Yes Type: coffee Number of servings: 1 what type of physical activity do you participate in: other details: dancing and active job HPI HPI Chief Complaint: 6 M FU Details: YOSEF JENNINGS, is a 83 F who presents to the office today for follow-up of her chronic medical conditions. No acute concerns at this time. History of hypothyroidism currently on levothyroxine. TSH levels have been elevated, plan was for repeat TSH in 6 weeks however this has not been done. No heat or cold intolerance or unintentional weight loss. Difficulty with weight loss reported. History of atrial fibrillation, follows up with cardiology. Currently on apixaban and diltiazem. Also on furosemide. Denies chest pain, worsening shortness of breath or chest tightness. Anterior chest wall swelling noted on exam. Nontender. She was not aware of this. ROS Const Constitutional: No body ache, chills, excessive sweating, fatigue, fever(s), frequent falls, headache(s), snoring, weakness, sleep problems or change in appetite Eyes Eyes: No blurry vision, change in vision, bulging eyes, visual disturbances or Light sensitivity ENT ENT: No abnormal hearing, ear or mastoid pain, tinnitus, nosebleed/epistaxis , nasal congestion, nasal discharge, headache(s), neck pain or sore throat Resp Respiratory: No cough, pain on inspiration, snoring or wheezing Cardio Cardiology: Positive for other (BLE EDEMA, L>R); No chest pain at rest, chest pain with exertion, excessive sweating, shortness of breath, dyspnea on exertion, lightheadedness, orthopnea or palpitations Gastro GI: No abdominal pain, change in bowel habits, constipation, cramping, diarrhea or nausea/dyspepsia Genitourinary-Femal e: No burning urination, painful urination, urinary incontinence, urinary frequency or suprapubic fullness Musc Musculoskeletal: No abnormal gait, joint pain, back pain, limite (more content not included)... Normal [facility] Thyroid Stim Hormone (TSH)on 01-12-2024 TSH 11.50 uIU/mL High 0.358-3.74 [facility] Comment on above: Performed By: #### L 100.0100, L500.4050, L501.9520 #### [facility] [address] [place], [address] Basophil percentageOrdered B y: Chele Locke on 07-29-2023 Chloride [Moles/Vol] 109 mmol/L 98-107 [facility] Glucose [Mass/Vol] 115 mg/dL 74-106 [facility] Comment on above: Fasting Glucose resu lt from 100 to 125 mg/dL suggests IMPAIRED HOMEOSTASIS per A.D.A. criteria. Potassium [Moles/Vol] 4.4 mmol/L 3.5-5.1 [facility] Sodium [Moles/Vol] 139 mmol/L 136-145 [facility] - Chemistry and C hemistry - challengeOrdered By: Chele Locke on 07-29-2023 CO2 [Moles/Vol] 26.0 mmol/L 21.0-32.0 [facility] Urea nitrogen/Creatinine [Mass ratio] 19.3 mg/mg 10-20 [facility] No Panel InformationOrdered By: Chele Locke on 07-29-2023 Estimated GFR (MDRD) Amer 56 mL/min >60 [facility] Comment on above: GFR Calc Estimated GFR (MDRD) Non-Af Amer 46 mL/min >60 [facility] Comment on above: Non- GFR Calc Serum or plasma calcium selina urement (mass/volume)Ordered By: Chele Locke on 07-29-2023 Calcium [Mass/Vol] 9.5 mg/dL 8.5-10.1 [facility] Serum or plasma creatinine m easurement (mass/volume)Ordered By: Chele Locke on 07-29-2023 Creatinine [Mass/Vol] 1.19 mg/dL 0.55-1.02 [facility] Comment on above: The validity of the calculated GFR & GFRAA in patients over 70 years has not been determined. Clinical correlation is essential. Serum or plasma urea nitroge n measurement (mass/volume)Ordered By: Chele Locke on 07-29-2023 Urea nitrogen [Mass/Vol] 23 mg/dL 7-18 [facility] Thin prep Papanicolaou smear with manual screeningOrdered By: Chele Locke on 07-29-2023 Thin prep Papanicolaou smear with manual screening 4 5-15 [facility] Absolute lymphocyte countOrd ered By: Tracey Smith on 07-14-2023 Lymphocytes Auto (Unsp spec) [#/Vol] 1.84 10*3/uL 0.83-4.51 [facility] Basophil percentageOrdered B y: Tracey Smith on 07-14-2023 Basophils/100 WBC (Bld) 0.6 % 0-1 [facility] Bilirubin [Mass/Vol] 0.20 mg/dL 0.20-1.00 [facility] Comment on above: For patients on eltr ombopag therapy, use of Dimension Davis TBIL is not recommended. Chloride [Moles/Vol] 108 mmol/L 98-107 [facility] Cholesterol [Mass/Vol] 192 mg/dL <200 [facility] Comment on above: <200 mg/dL Desirable 200-240 mg/dL Borderline >240 mg/dL High Risk Eosinophils/100 WBC (Bld) 1.9 % 0-5 [facility] Glucose [Mass/Vol] 100 mg/dL 74-106 [facility] Comment on above: Fasting Glucose resu lt from 100 to 125 mg/dL suggests IMPAIRED HOMEOSTASIS per A.D.A. criteria. Neutrophils (Bld) [#/Vol] 5.8 10*3/uL 2.0-7.7 [facility] Neutrophils/100 WBC (Bld) 66.0 % 47-70 [facility] Potassium [Moles/Vol] 4.1 mmol/L 3.5-5.1 [facility] Protein [Mass/Vol] 6.9 g/dL 6.4-8.2 [facility] Sodium [Moles/Vol] 138 mmol/L 136-145 [facility] Triglyceride [Mass/Vol] 100 mg/dL <199 [facility] Comment on above: The drugs N-Acetylcy steine and Metamizole may falsely depress this assay.Serum Triglycerides Reference Interval Normal <150 mg/dL Borderline high 150 - 199 mg/dL High 200 - 499 mg/dL Very High > or = 500 mg/dL WBC (Bld) [#/Vol] 8.7 10*3/uL 4.4-11.0 [facility] Blood erythrocytes count (nu mber/volume)Ordered By: Tracey Smith on 07-14-2023 RBC (Bld) [#/Vol] 4.27 10*6/uL 4.2-5.4 [facility] Blood hemoglobin measurement (mass/volume)Ordered By: Tracey Smith on 07-14-2023 Hemoglobin (Bld) [Mass/Vol] 12.0 g/dL 12.0-15.0 [facility] Blood lymphocytes/100 leukoc ytesOrdered By: Elenalakotajeni Smith on 07-14-2023 Lymphocytes/100 WBC (Bld) 21.1 % 19-41 [facility] Blood monocytes/100 leukocyt esOrdered By: gwynlakotajeni Smith on 07-14-2023 Monocytes/100 WBC (Bld) 9.6 % 0-10 [facility] Blood platelet mean volumeOr dered By: Tracey Smith on 07-14-2023 Platelet mean volume (Bld) [Entitic vol] 9.4 fL 6.2-12.0 [facility] Determination of erythrocyte mean corpuscular volume (MCV)Ordered By: Tracey Smith on 07-14-2023 MCV (RBC) [Entitic vol] 91.1 fL 81-99 [facility] Hematocrit Auto (Bld) [Volum e fraction]Ordered By: Tracey Smith on 07-14-2023 Hematocrit (Bld) [Volume fraction] 38.9 % 37-47 [facility] - Chemistry and C hemistry - challengeOrdered By: Tracey Smith on 07-14-2023 ALP [Catalytic activity/Vol] 110 U/L 45-117 [facility] ALT [Catalytic activity/Vol] 22 U/L 13-56 [facility] CO2 [Moles/Vol] 26.0 mmol/L 21.0-32.0 [facility] Free T4 [Mass/Vol] 0.73 ng/dL 0.76-1.46 [facility] Globulin (S) [Mass/Vol] 3.8 g/dL 2.2-4.2 [facility] Urea nitrogen/Creatinine [Mass ratio] 17.9 mg/mg 10-20 [facility] - Hematology and Cell countsOrdered By: Tracey Smith on 07-14-2023 Erythrocyte distribution width (RBC) [Entitic vol] 48.0 fL 35.1-43.9 [facility] Erythrocyte distribution width (RBC) [Ratio] 14.5 % 11.6-14.6 [facility] Immature granulocytes/100 WBC (Bld) 0.800 % 0.0-0.9 [facility] Comment on above: IG% - Immature Granu locytes (promyelocytes, myelocytes and metamyelocytes) > 1% indicates that a LEFT SHIFT is Present. MCH (RBC) [Entitic mass] 28.1 pg 27.0-32.0 [facility] Nucleated RBC/100 WBC (Bld) [Ratio] 0 % 0-5 [facility] MCHC Auto (RBC) [Mass/Vol]Or dered By: Tracey Smith on 07-14-2023 MCHC (RBC) [Mass/Vol] 30.8 g/dL 32-36 [facility] No Panel InformationOrdered By: Tracey Smith on 07-14-2023 Estimated GFR (MDRD) Amer 54 mL/min >60 [facility] Comment on above: GFR Calc Estimated GFR (MDRD) Non-Af Amer 44 mL/min >60 [facility] Comment on above: Non- GFR Calc Thyroid Stimulating Hormone (TSH) 6.74 uIU/mL 0.358-3.74 [facility] Platelets bldOrdered By: Jose Smith on 07-14-2023 Platelets (Bld) [#/Vol] 257 10*3/uL 150-450 [facility] Serum or plasma albumin selina urement (mass/volume)Ordered By: Tracey Smith on 07-14-2023 Albumin [Mass/Vol] 3.1 g/dL 3.2-5.0 [facility] Serum or plasma albumin/glob ulin mass ratioOrdered By: Tracey Smith on 07-14-2023 Albumin/Globulin [Mass ratio] 0.8 {ratio} 0.9-2.4 [facility] Serum or plasma calcium selina urement (mass/volume)Ordered By: Tracey Smith on 07-14-2023 Calcium [Mass/Vol] 9.3 mg/dL 8.5-10.1 [facility] Serum or plasma cholesterol in HDL measurement (mass/volume)Ordered By: Tracey Smith on 07-14-2023 Cholesterol in HDL [Mass/Vol] 58 mg/dL >40 [facility] Comment on above: The drugs N-Acetylcy steine and Metamizole may falsely depress this assay. Reference Range HDL <40 mg/dL Low HDL Cholesterol HDL >or= 60 mg/dL High HDL Cholesterol Serum or plasma cholesterol in VLDL measurement (mass/volume)Ordered By: Tracey Smith on 07-14-2023 Cholesterol in VLDL [Mass/Vol] 20 mg/dL 5-40 [facility] Serum or plasma creatinine m easurement (mass/volume)Ordered By: Tracey Smith on 07-14-2023 Creatinine [Mass/Vol] 1.23 mg/dL 0.55-1.02 [facility] Comment on above: The validity of the calculated GFR & GFRAA in patients over 70 years has not been determined. Clinical correlation is essential. Serum or plasma low density lipoprotein (LDL) cholesterol measurement (mass/volume)Ordered By: Tracey Smith on 07-14-2023 Cholesterol in LDL [Mass/Vol] 114 mg/dL 0-130 [facility] Serum or plasma urea nitroge n measurement (mass/volume)Ordered By: Tracey Smith on 07-14-2023 Urea nitrogen [Mass/Vol] 22 mg/dL 7-18 [facility] Thin prep Papanicolaou smear with manual screeningOrdered By: Tracey Smith on 07-14-2023 Thin prep Papanicolaou smear with manual screening 12 U/L 15-37 [facility] Thin prep Papanicolaou smear with manual screening 4 5-15 [facility] Laboratory - Microbiology an d Antimicrobial susceptibilityon 06-16-2023 SARS-CoV-2 (COVID-19) RNA JUNIOR+probe Ql (Unsp spec) Detected [facility] No Panel Informationon 06-16 POC Nasal Swab Influenza A,B Not detected [facility] POC Nasal Swab RSV Not detected [facility] Laboratory - Chemistry and C hemistry - challengeOrdered By: Dr. Smith on 10-21-2022 Free T4 [Mass/Vol] 0.58 ng/dL 0.76-1.46 [facility] No Panel InformationOrdered By: Dr. Locke on 10-21-2022 Thyroid Stimulating Hormone (TSH) 9.45 uIU/mL 0.358-3.74 [facility] Absolute lymphocyte countOrd ered By: Michael Sánchez on 07-31-2022 Lymphocytes Auto (Unsp spec) [#/Vol] 2.01 10*3/uL 0.83-4.51 [facility] Basophil percentageOrdered B y: Michael Sánchez on 07-31-2022 Basophils/100 WBC (Bld) 0.7 % 0-1 [facility] Chloride [Moles/Vol] 112 mmol/L 98-107 [facility] Eosinophils/100 WBC (Bld) 1.6 % 0-5 [facility] Glucose [Mass/Vol] 110 mg/dL 74-106 [facility] Comment on above: Fasting Glucose resu lt from 100 to 125 mg/dL suggests IMPAIRED HOMEOSTASIS per A.D.A. criteria. Lactate [Moles/Vol] 0.4 mmol/L 0.4-2.0 [facility] Neutrophils (Bld) [#/Vol] 4.1 10*3/uL 2.0-7.7 [facility] Neutrophils/100 WBC (Bld) 58.3 % 47-70 [facility] Potassium [Moles/Vol] 4.6 mmol/L 3.5-5.1 [facility] Comment on above: Moderate Hemolysis, Result may be falsely increased. Sodium [Moles/Vol] 141 mmol/L 136-145 [facility] WBC (Bld) [#/Vol] 7.0 10*3/uL 4.4-11.0 [facility] Blood erythrocytes count (nu mber/volume)Ordered By: Michael Sánchez on 07-31-2022 RBC (Bld) [#/Vol] 4.25 10*6/uL 4.2-5.4 [facility] Blood hemoglobin measurement (mass/volume)Ordered By: Michael Sánchez on 07-31-2022 Hemoglobin (Bld) [Mass/Vol] 12.5 g/dL 12.0-15.0 [facility] Blood lymphocytes/100 leukoc ytesOrdered By: Michael Sánchez on 07-31-2022 Lymphocytes/100 WBC (Bld) 28.9 % 19-41 [facility] Blood manual differential co mment interpretation (narrative result)Ordered By: Michael Sánchez on 07-31-2022 Manual differential comment Shant (Bld) [Interp] SCANNED [facility] Blood monocytes/100 leukocyt esOrdered By: Michael Sánchez on 07-31-2022 Monocytes/100 WBC (Bld) 10.2 % 0-10 [facility] Blood platelet adequacy dete ction by light microscopyOrdered By: Michael Sánchez on 07-31-2022 Platelets LM Ql (Bld) ADEQUATE ADEQ [facility] Blood platelet mean volumeOr dered By: Michael Sánchez on 07-31-2022 Platelet mean volume (Bld) [Entitic vol] 10.7 fL 6.2-12.0 [facility] Determination of erythrocyte mean corpuscular volume (MCV)Ordered By: Michael Sánchez on 07-31-2022 MCV (RBC) [Entitic vol] 90.6 fL 81-99 [facility] Erythrocyte sedimentation ra teOrdered By: Michael Sánchez on 07-31-2022 ESR (Bld) [Velocity] 13 mm/h 0-30 [facility] Hematocrit Auto (Bld) [Volum e fraction]Ordered By: Michael Sánchez on 07-31-2022 Hematocrit (Bld) [Volume fraction] 38.5 % 37-47 [facility] Laboratory - Chemistry and C hemistry - challengeOrdered By: Michael Sánchez on 07-31-2022 CO2 [Moles/Vol] 25.0 mmol/L 21.0-32.0 [facility] Urea nitrogen/Creatinine [Mass ratio] 34.8 mg/mg 10-20 [facility] Laboratory - Hematology and Cell countsOrdered By: Michael Sánchez on 07-31-2022 Erythrocyte distribution width (RBC) [Entitic vol] 47.3 fL 35.1-43.9 [facility] Erythrocyte distribution width (RBC) [Ratio] 14.3 % 11.6-14.6 [facility] Immature granulocytes/100 WBC (Bld) 0.300 % 0.0-0.9 [facility] Comment on above: IG% - Immature Granu locytes (promyelocytes, myelocytes and metamyelocytes) > 1% indicates that a LEFT SHIFT is Present. MCH (RBC) [Entitic mass] 29.4 pg 27.0-32.0 [facility] Nucleated RBC/100 WBC (Bld) [Ratio] 0 % 0-5 [facility] MCHC Auto (RBC) [Mass/Vol]Or dered By: Michael Sánchez on 07-31-2022 MCHC (RBC) [Mass/Vol] 32.5 g/dL 32-36 [facility] No Panel InformationOrdered By: Michael Sánchez on 07-31-2022 Estimated Creatinine Clearance Calc 36.88 ml/min [facility] Estimated GFR (MDRD) Amer 60 mL/min >60 [facility] Comment on above: GFR Calc Estimated GFR (MDRD) Non-Af Amer 50 mL/min >60 [facility] Comment on above: Non- GFR Calc Platelets bldOrdered By: Joseph Sánchez on 07-31-2022 Platelets (Bld) [#/Vol] 139 10*3/uL 150-450 [facility] Serum or plasma C reactive p rotein measurement (mass/volume)Ordered By: Michael Sánchez on 07-31-2022 CRP [Mass/Vol] mg/L 0.0-3.0 [facility] Comment on above: C-Reactive Protein ( CRP) provides useful information for thediagnosis, therapy and monitoring of inflammatory processesand associated diseases. For the evaluation of Relative Riskfor Cardiovascular Disease, a High Sensitivity CRP (HSCRP)should be ordered. Serum or plasma calcium selina urement (mass/volume)Ordered By: Michael Sánchez on 07-31-2022 Calcium [Mass/Vol] 9.1 mg/dL 8.5-10.1 [facility] Serum or plasma creatinine m easurement (mass/volume)Ordered By: Michael Sánchez on 07-31-2022 Creatinine [Mass/Vol] 1.12 mg/dL 0.55-1.02 [facility] Comment on above: The validity of the calculated GFR & GFRAA in patients over 70 years has not been determined. Clinical correlation is essential. Serum or plasma urea nitroge n measurement (mass/volume)Ordered By: Michael Sánchez on 07-31-2022 Urea nitrogen [Mass/Vol] 39 mg/dL 7-18 [facility] Thin prep Papanicolaou smear with manual screeningOrdered By: Michael Sánchez on 07-31-2022 Thin prep Papanicolaou smear with manual screening 4 5-15 [facility] Vital Signs Date Time Vital Sign Value Performing Clinician Faci lity 10-03-2023 11:11-0400 Body temperature 97.2 [degF] Dr. Tracey Smith Work Phone: [facility] 10-03-2023 11:11-0400 Diastolic blood pressure 97 mm[Hg] Dr. Tracey Smith Work Phone: [facility] 10-03-2023 11:11-0400 Heart rate 74 /min Dr. Tracey Smith Work Phone: [facility] 10-03-2023 11:11-0400 Respiratory rate 16 /min Dr. Tracey Smith Work Phone: [facility] 10-03-2023 11:11-0400 SaO2% (BldA) [Mass fraction] 96 % Dr. Tracey Smith Work Phone: [facility] 10-03-2023 11:11-0400 Systolic blood pressure 160 mm[Hg] Dr. Tracey Smith Work Phone: [facility] 10-03-2023 08:54-0400 Body height [address] Tracey Smith Work Phone: [facility] 10-03-2023 08:54-0400 Body mass index (BMI) [Ratio] 36.9 kg/m2 Dr. Tracey Smith Work Phone: [facility] 10-03-2023 08:54-0400 Body weight 104.[address] Tracey Smith Work Phone: [facility] 07-26-2023 13:16-0500 Body height 167.[address] Tracey Smith Work Phone: [facility] 07-26-2023 13:16-0500 Body mass index (BMI) [Ratio] 38.4 kg/m2 Dr. Tracey Smith Work Phone: [facility] 07-26-2023 13:16-0500 Body weight 107.[address] Tracey Smith Work Phone: [facility] 07-26-2023 13:16-0500 Diastolic blood pressure 87 mm[Hg] Dr. Tracey Smith Work Phone: [facility] 07-26-2023 13:16-0500 Heart rate 90 /min Dr. Tracey Smith Work Phone: [facility] 07-26-2023 13:16-0500 Respiratory rate 16 /min Dr. Tracey Smith Work Phone: [facility] 07-26-2023 13:16-0500 Systolic blood pressure 144 mm[Hg] Dr. Tracey Smith Work Phone: [facility] 07-14-2023 15:24-0500 Body height 167.[address] Tracey Smith Work Phone: [facility] 07-14-2023 15:24-0500 Body mass index (BMI) [Ratio] 38.4 kg/m2 Dr. Tracey Smith Work Phone: [facility] 07-14-2023 15:24-0500 Body temperature 97.5 [degF] Dr. Tracey Smith Work Phone: [facility] 07-14-2023 15:24-0500 Body weight 107.[address] Tracey Smith Work Phone: [facility] 07-14-2023 15:24-0500 Diastolic blood pressure 82 mm[Hg] Dr. Tracey Smith Work Phone: [facility] 07-14-2023 15:24-0500 Heart rate 91 /min Dr. Tracey Smiht Work Phone: [facility] 07-14-2023 15:24-0500 Respiratory rate 16 /min Dr. Tracey Smith Work Phone: [facility] 07-14-2023 15:24-0500 SaO2% (BldA) [Mass fraction] 97 % Dr. Tracey Smith Work Phone: [facility] 07-14-2023 15:24-0500 Systolic blood pressure 140 mm[Hg] Dr. Tracey Smith Work Phone: [facility] 06-16-2023 10:26-0500 Body temperature 98.1 [degF] Dr. Tracey Smith Work Phone: [facility] 06-16-2023 10:26-0500 Diastolic blood pressure 97 mm[Hg] Dr. Tracey Smith Work Phone: [facility] 06-16-2023 10:26-0500 Heart rate 84 /min Dr. Tracey Smith Work Phone: [facility] 06-16-2023 10:26-0500 SaO2% (BldA) [Mass fraction] 95 % Dr. Tracey Smith Work Phone: [facility] 06-16-2023 10:26-0500 Systolic blood pressure 163 mm[Hg] Dr. Tracey Smith Work Phone: [facility] 12-23-2022 13:41-0400 Body height 167.[address] Tracey Smith Work Phone: [facility] 12-23-2022 13:41-0400 Body mass index (BMI) [Ratio] 44.9 kg/m2 Dr. Tracey Smith Work Phone: [facility] 12-23-2022 13:41-0400 Body weight 126.[address] Tracey Smith Work Phone: [facility] 12-23-2022 13:41-0400 Diastolic blood pressure 85 mm[Hg] Dr. Tracey Smith Work Phone: [facility] 12-23-2022 13:41-0400 Heart rate 84 /min Dr. Tracey Smith Work Phone: [facility] 12-23-2022 13:41-0400 Respiratory rate 16 /min Dr. Tracey Smith Work Phone: [facility] 12-23-2022 13:41-0400 Systolic blood pressure 132 mm[Hg] Dr. Tracey Smith Work Phone: [facility] 10-29-2022 08:23-0400 Body temperature 96 [degF] Dr. Tracey Smith Work Phone: [facility] 10-29-2022 08:23-0400 Diastolic blood pressure 96 mm[Hg] Dr. Tracey Smith Work Phone: [facility] 10-29-2022 08:23-0400 Heart rate 89 /min Dr. Tracey Smith Work Phone: [facility] 10-29-2022 08:23-0400 Respiratory rate 16 /min Dr. Tracey Smith Work Phone: [facility] 10-29-2022 08:23-0400 Systolic blood pressure 160 mm[Hg] Dr. Tracey Smith Work Phone: [facility] 10-08-2022 08:26-0400 Body temperature 95.6 [degF] Dr. Tracey Smith Work Phone: [facility] 10-08-2022 08:26-0400 Diastolic blood pressure 99 mm[Hg] Dr. Tracey Smith Work Phone: [facility] 10-08-2022 08:26-0400 Heart rate 78 /min Dr. Tracey Smith Work Phone: [facility] 10-08-2022 08:26-0400 Systolic blood pressure 157 mm[Hg] Dr. Tracey Smith Work Phone: [facility] 10-05-2022 12:59-0400 Body height 167.[address] Tracey Smith Work Phone: [facility] 10-05-2022 12:59-0400 Body mass index (BMI) [Ratio] 33.7 kg/m2 Dr. Tracey Smith Work Phone: [facility] 10-05-2022 12:59-0400 Body weight 94.[address] Tracey Smith Work Phone: [facility] 10-05-2022 12:59-0400 Diastolic blood pressure 93 mm[Hg] Dr. Tracey Smith Work Phone: [facility] 10-05-2022 12:59-0400 Heart rate 94 /min Dr. Tracey Smith Work Phone: [facility] 10-05-2022 12:59-0400 Respiratory rate 16 /min Dr. Tracey Smith Work Phone: [facility] 10-05-2022 12:59-0400 Systolic blood pressure 148 mm[Hg] Dr. Tracey Smith Work Phone: [facility] 10-01-2022 08:20-0400 Respiratory rate 18 /min Dr. Tracey Smith Work Phone: [facility] 09-03-2022 08:29-0500 Body temperature 95.5 [degF] Dr. Tracey Smith Work Phone: [facility] 09-03-2022 08:29-0500 Diastolic blood pressure 90 mm[Hg] Dr. Tracey Smith Work Phone: [facility] 09-03-2022 08:29-0500 Heart rate 102 /min Dr. Tracey Smith Work Phone: [facility] 09-03-2022 08:29-0500 Respiratory rate 18 /min Dr. Tracey Smith Work Phone: [facility] 09-03-2022 08:29-0500 Systolic blood pressure 152 mm[Hg] Dr. Tracey Smith Work Phone: [facility] 08-24-2022 10:56-0500 Body height 167.[address] Tracey Smith Work Phone: [facility] 08-24-2022 10:56-0500 Body mass index (BMI) [Ratio] 34 kg/m2 Dr. Tracey Smith Work Phone: [facility] 08-24-2022 10:56-0500 Body temperature 96.4 [degF] Dr. Tracey Smith Work Phone: [facility] 08-24-2022 10:56-0500 Body weight 95.[address] Tracey Smith Work Phone: [facility] 08-24-2022 10:56-0500 Diastolic blood pressure 62 mm[Hg] Dr. Tracey Smith Work Phone: [facility] 08-24-2022 10:56-0500 Heart rate 63 /min Dr. Tracey Smith Work Phone: [facility] 08-24-2022 10:56-0500 Respiratory rate 16 /min Dr. Tracey Smith Work Phone: [facility] 08-24-2022 10:56-0500 SaO2% (BldA) [Mass fraction] 98 % Dr. Tracey Smith Work Phone: [facility] 08-24-2022 10:56-0500 Systolic blood pressure 124 mm[Hg] Dr. Tracey Smith Work Phone: [facility] 08-19-2022 16:28-0500 Body height 167.[address] Tracey Smith Work Phone: [facility] 08-19-2022 16:28-0500 Body mass index (BMI) [Ratio] 34.8 kg/m2 Dr. Tracey Smith Work Phone: [facility] 08-19-2022 16:28-0500 Body temperature 96.5 [degF] Dr. Tracey Smith Work Phone: [facility] 08-19-2022 16:28-0500 Body weight 97.[address] Tracey Smith Work Phone: [facility] 08-19-2022 16:28-0500 Diastolic blood pressure 99 mm[Hg] Dr. Tracey Smith Work Phone: [facility] 08-19-2022 16:28-0500 Heart rate 90 /min Dr. Tracey Smith Work Phone: [facility] 08-19-2022 16:28-0500 Respiratory rate 16 /min Dr. Tracey Smith Work Phone: [facility] 08-19-2022 16:28-0500 SaO2% (BldA) [Mass fraction] 99 % Dr. Tracey Smith Work Phone: [facility] 08-19-2022 16:28-0500 Systolic blood pressure 160 mm[Hg] Dr. Tracey Smith Work Phone: [facility] 08-13-2022 08:20-0500 Body temperature 97.3 [degF] Dr. Tracey Smith Work Phone: [facility] 08-13-2022 08:20-0500 Diastolic blood pressure 87 mm[Hg] Dr. Tracey Smith Work Phone: [facility] 08-13-2022 08:20-0500 Heart rate 97 /min Dr. Tracey Smith Work Phone: [facility] 08-13-2022 08:20-0500 Systolic blood pressure 155 mm[Hg] Dr. Tracey Smith Work Phone: [facility] 08-11-2022 17:14-0500 Body height 167.[address] Tracey Smith Work Phone: [facility] 08-11-2022 17:14-0500 Body mass index (BMI) [Ratio] 34.8 kg/m2 Dr. Tracey Smith Work Phone: [facility] 08-11-2022 17:14-0500 Body temperature 97 [degF] Dr. Tracey Smith Work Phone: [facility] 08-11-2022 17:14-0500 Body weight 97.[address] Tracey Smith Work Phone: [facility] 08-11-2022 17:14-0500 Diastolic blood pressure 91 mm[Hg] Dr. Tracey Smith Work Phone: [facility] 08-11-2022 17:14-0500 Heart rate 102 /min Dr. Tracey Smith Work Phone: [facility] 08-11-2022 17:14-0500 Respiratory rate 14 /min Dr. Tracey Smith Work Phone: [facility] 08-11-2022 17:14-0500 SaO2% (BldA) [Mass fraction] 96 % Dr. Tracey Smith Work Phone: [facility] 08-11-2022 17:14-0500 Systolic blood pressure 113 mm[Hg] Dr. Tracey Smith Work Phone: [facility] 07-31-2022 03:12-0500 Heart rate 69 /min Dr. Tracey Smith Work Phone: [facility] 07-31-2022 03:12-0500 Respiratory rate 15 /min Dr. Tracey Smith Work Phone: [facility] 07-31-2022 03:12-0500 SaO2% (BldA) [Mass fraction] 98 % Dr. Tracey Smith Work Phone: [facility] 07-31-2022 01:53-0500 Diastolic blood pressure 85 mm[Hg] Dr. Tracey Smith Work Phone: [facility] 07-31-2022 01:53-0500 Systolic blood pressure 169 mm[Hg] Dr. Tracey Smith Work Phone: [facility] 07-31-2022 01:44-0500 Body height 167.[address] Tracey Smith Work Phone: [facility] 07-31-2022 01:44-0500 Body mass index (BMI) [Ratio] 35.3 kg/m2 Dr. Tracey Smith Work Phone: [facility] 07-31-2022 01:44-0500 Body temperature 98 [degF] Dr. Tracey Smith Work Phone: [facility] 07-31-2022 01:44-0500 Body weight 99.[address] Tracey Smith Work Phone: [facility] 05-11-2022 12:28-0400 Body temperature 98 [degF] Dr. Tracey Smith Work Phone: [facility] 05-11-2022 12:28-0400 Diastolic blood pressure 82 mm[Hg] Dr. Tracey Smith Work Phone: [facility] 05-11-2022 12:28-0400 Heart rate 57 /min Dr. Tracey Smith Work Phone: [facility] 05-11-2022 12:28-0400 Respiratory rate 14 /min Dr. Tracey Smith Work Phone: [facility] 05-11-2022 12:28-0400 SaO2% (BldA) [Mass fraction] 99 % Dr. Tracey Smith Work Phone: [facility] 05-11-2022 12:28-0400 Systolic blood pressure 132 mm[Hg] Dr. Tracey Smith Work Phone: [facility] Encounters Encounter Date Encounter Type Care Provider Facility Start: 12-26-2024 ambulatory Chele Chucky Facility:[facility] Start: 10-27-2024 End: 10-27-2024 ambulatory Chele Chucky Facility:[facility] Start: 10-24-2024 End: 10-24-2024 ambulatory Chele Chucky Facility:[facility] Start: 05-04-2024 ambulatory Chele Chucky Facility:[facility] Start: 05-02-2024 End: 05-02-2024 ambulatory Chele Chucky Facility:[facility] Start: 04-27-2024 End: 04-27-2024 ambulatory Chele Chucky Facility:[facility] Start: 01-12-2024 End: 01-12-2024 ambulatory [facility] Start: 01-12-2024 End: 01-12-2024 ambulatory Tracey Smith Facility:[facility] Start: 10-03-2023 End: 10-03-2023 Emergency department patient visit Dr. Tracey Smith Work Phone: [facility] Work Phone: Start: 07-29-2023 End: 07-29-[address] Tracey Smith Work Phone: [facility] Work Phone: Start: 07-29-2023 End: 07-29-[address] Tracey Smith Work Phone: [facility] Work Phone: Start: 07-26-2023 End: 07-26-[address] Tracey Smith Work Phone: [facility] Work Phone: Start: 07-14-2023 End: 07-14-[address] Tracey Smith Work Phone: [facility] Work Phone: Start: 07-14-2023 End: 07-14-[address] Tracey Smith Work Phone: [facility] Work Phone: Start: 06-16-2023 End: 06-16-[address] Tracey Smith Work Phone: [facility] Work Phone: Start: 01-04-2023 Non-patient / Non-visit Dr. Reg Smith Work Phone: [facility] Start: 01-04-2023 End: 01-04-[address] Tracey Smith Work Phone: [facility] Work Phone: Start: 01-04-2023 End: 01-04-[address] [facility] Start: 12-23-2022 End: 12-23-[address] Tracey Smith Work Phone: [facility] Work Phone: Start: 11-27-2022 Non-patient / Non-visit Dr. Reg Smith Work Phone: [facility] Work Phone: Start: 11-06-2022 Non-patient / Non-visit Dr. Reg Smith Work Phone: [facility] Start: 11-02-2022 Non-patient / Non-visit Dr. Reg Smith Work Phone: [facility] Start: 11-02-2022 End: 11-02-[address] Tracey Smith Work Phone: [facility] Work Phone: Start: 11-02-2022 End: 11-02-[address] [facility] Start: 10-29-2022 End: 11-08-[address] Tracey Smith Work Phone: [facility] Work Phone: Start: 10-29-2022 End: 11-08-[address] [facility] Start: 10-29-[address] Omar Smith Work Phone: [facility] Start: 10-08-2022 End: 10-09-[address] Tracey Smith Work Phone: [facility] Work Phone: Start: 10-08-2022 End: 10-09-[address] Tracey Smith Work Phone: [facility] Start: 10-05-2022 End: 10-05-[address] Tracey Smith Work Phone: [facility] Start: 09-03-2022 End: 09-08-[address] Tracey Smith Work Phone: [facility] Work Phone: Start: 09-03-2022 End: 09-08-[address] Tracey Smith Work Phone: [facility] Start: 09-03-[address] Omar Smith Work Phone: [facility] Start: 09-01-2022 End: 09-01-2022 Non-patient / Non-visit Dr. Tracey Smith Work Phone: [facility] Start: 09-01-2022 End: 09-01-[address] Tracey Smith Work Phone: [facility] Work Phone: Start: 09-01-2022 End: 09-01-[address] [facility] Start: 08-24-2022 End: 08-24-[address] Tracey Smith Work Phone: [facility] Start: 08-19-2022 End: 08-19-2022 Emergency department patient visit Dr. Tracey Smith Work Phone: [facility] Start: 08-19-[address] Omar Smith Work Phone: [facility] Start: 08-11-2022 End: 08-11-2022 Emergency department patient visit Dr. Tracey Smith Work Phone: [facility] Start: 07-31-2022 End: 07-31-2022 Emergency department patient [facility] Start: 05-11-2022 End: 05-11-[address] Tracey Smith Work Phone: [facility] Procedures Date Procedure Procedure Detail Performing Clinician Start: 10-03-2023 X-ray of chest posteroanterior view Dr. Tracey Smith Work Phone: Start: 01-04-2023 Cardiovascular stress test using pharmacologic stress agent Dr. Tracey Smith Work Phone: Start: 08-11-2022 Diagnostic radiography of finger Dr. Tracey Smith Work Phone: Start: 07-31-[address] Tracey pena Work Phone: Start: 05-11-[address] Tracey pena Work Phone: History of cataract extraction History of cataract surgery Dr. Tracey Smith Work Phone: Plan of Treatment Date Care Activity Detail Author Start: 10-03-2023 [facility] Start: 08-11-2022 Simple repair scalp/neck/ax/genit/trunk 2.5cm/< RPR S/N/AX/GEN/TRNK 2.5CM/< [facility] Patient Education [facility] Work Phone: Patient referral [facility] Work Phone: Referral for further care [facility] Thyroid stimulating hormone measurement [facility] Immunizations Immunization Date Immunization Notes Care Provider Nicolette luis 04-14-2023 influenza, injectabl e, quadrivalent, preservative free Dr. Tracey Smith Work Phone: [facility] 08-11-2022 tetanus toxoid, redu rosa diphtheria toxoid, and acellular pertussis vaccine, adsorbed Dr. Tracey Smith Work Phone: [facility] 04-29-2022 influenza, injectabl e, quadrivalent, preservative free Dr. Tracey Smith Work Phone: [facility] 04-29-2022 influenza, seasonal, injectable Dr. Tracey Smith Work Phone: [facility] 12-12-2021 Covid (Pfizer) Dr. Tracey Smith Work Phone: [facility] 05-27-2021 Covid (Moderna) Dr. Carolina Smith Work Phone: [facility] 04-18-2021 influenza, injectabl e, quadrivalent, preservative free Dr. Tracey Smith Work Phone: [facility] 04-18-2021 influenza, seasonal, injectable Dr. Tracey Smith Work Phone: [facility] 08-13-2020 Covid (Moderna) Dr. Carolina Smith Work Phone: [facility] 07-16-2020 Covid (Moderna) Dr. Carolina Smith Work Phone: [facility] 04-29-2020 influenza, injectabl e, quadrivalent, preservative free Dr. Tracey Smith Work Phone: [facility] 04-29-2020 influenza, seasonal, injectable Dr. Tracey Smith Work Phone: [facility] 05-02-2019 influenza, injectabl e, quadrivalent, preservative free Dr. Tracey Smith Work Phone: [facility] 05-02-2019 influenza, seasonal, injectable Dr. Tracey Smith Work Phone: [facility] 04-08-2018 influenza, injectabl e, quadrivalent, preservative free Dr. Tracey Smith Work Phone: [facility] 04-08-2018 influenza, seasonal, injectable Dr. Tracey Smith Work Phone: [facility] 04-16-2017 influenza, injectabl e, quadrivalent, preservative free Dr. Tracey Smith Work Phone: [facility] 04-16-2017 influenza, seasonal, injectable Dr. Tracey Smith Work Phone: [facility] 04-27-2016 influenza, injectabl e, quadrivalent, preservative free Dr. Tracey Smith Work Phone: [facility] 04-27-2016 influenza, seasonal, injectable Dr. Tracey Smith Work Phone: [facility] 04-11-2015 influenza, injectabl e, quadrivalent, preservative free Dr. Tracey Smith Work Phone: [facility] 04-11-2015 influenza, seasonal, injectable Dr. Tracey Smith Work Phone: [facility] 04-11-2014 influenza, injectabl e, quadrivalent, preservative free Dr. Tracey Smith Work Phone: [facility] 04-11-2014 influenza, seasonal, injectable Dr. Tracey Smith Work Phone: [facility] Payers Date Payer Category Payer Private Health Insurance [id number] 2024 Self-pay [id number] Private Health Insurance [id number] 2005 Medicare MEDICARE PART A B [id number] Private Health Insurance [employer] [id number] Unknown [id number] Unknown [id number] Unknown [id number] Unknown [id number] Unknown [id number] Unknown [id number] Unknown [id number] Unknown [id number] Unknown [id number] Social History Date Type Detail Facility Start: 07-31-2022 End: 10-03-2023 Tobacco smoking status NHIS Unknown if ever smoked [facility] Start: 1940 Sex Assigned At Female [facility] Mental Status Date Assessment Result Facility 08-19-2022 Cognitive function Level Of Cons ciousness Awake;Alert;Appropriate;Follow s Commands [facility] Work Phone: Clinical Notes 08-11-2022 to 10-29-2022 Note Date & Type Note Facility 10-29-2022 Progress note Note Date/Time October 29, 2022 8:15am [facility] [address] [place] [address] Progress Note - Wound Care 10/29/22 0815 MR#: [id number] Acct: [id number] Name: YOSEF JENNINGS Rep #:[id number] : 1940 82 From: Vinay zimmerman DPNyla PCP: Dr. Tracey Smith MD Status:R EG RCR Location: History of Present Illness Date of Service: 10/29/22 Chief Complaint: Left lower extremity ulceration x2 History of Wound: Patient is an 81-year-old female who presents to the wound care center with chronic ulceration x2 to the left lower extremity. She states she became very itchy on the inside of the left ankle and scratched creating 2 ulcerative wounds in April 2022. She reported to the ED soon after and was diagnosed with cellulitis and treated with oral antibiotics. She states that over the next few months the wounds however failed to progress in healing. She did fall recently and went to the [facility] ED for stitches in the right hand where she also had her wounds evaluated. ED physician notes chronic venous stasis with normal capillary fill time, however capillary fill time is diminished from previous visit in April. She has been applying bacitracin to the wounds however has not been wearing compression stockings. She continues to work and is on her feet for most of the day. She states when she comes home her legs are swollen and the ulcerative sites ache. Subjective Subjective This is an 82-year-old female seen for follow-up in the wound care center today for left lower extremity ulceration secondary to chronic venous stasis.? 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 Currently denies calf pain or SOB. States that she is also now on thyroid medication for hypothyroid. Has been changing dressings to left leg as needed. States leg has very little pain and believes she is almost healed.? She denies any constitutional symptoms.? She hasno further complaints. Objective Data Objective Data Vital Signs: Vital Signs Temp Pulse Resp BP O2 Del Method 97 F L 83 16 159/90 H Room Air 10/22/22 08:23 10/22/22 08:23 10/22/22 08:23 10/22/22 08:23 10/22/22 08:23 Oxygen Delivery Method Room Air Physical Exam Const alert, oriented x3 and no apparent distress General Appearance: cooperative HEENT normocephalic Eyes General Eye: normal appearance of both eyes Neck General: normal visual inspection Lymph Lymphatic: no lymphadenopathy noted and no lymphedema noted Resp normal respiratory effort Cardio regular rate and regular rhythm Extremity normal capillary refill, no calf tenderness and no pedal edema Extremity Narrative: Left lower extremity: DP and PT pulses are palpable.? CFT less than 5 seconds tothe digits.? Normal temperature gradient.? Hair growth absent to the digits/foot.? There is varicosities noted to the left lower extremity, periankle, and dorsal foot.? +3 pitting edema - improved.? Ulceration noted to the medial ankle overlying the region of the great saphenous vein.? There is hemosiderin deposition to the medial aspect of the leg consistent with venous stasis dermatitis. Right lower extremity: DP and PT pulses are palpable.? CFT less than 5 seconds to the digits.? Normal temperature gradient.? Hair growth is absent to the digits/foot.? There is varicosities noted to the right lower extremity, periankle, and dorsal foot.? +1 pitting edema noted?improved Skin Wound Narrative: Left lower extremity ulceration x2.? Proximal medial ulceration is healed.? No signs of infection.? Distal medial ulceration is noted overlying the region of the great saphenous vein with mixed fibrogranular base.? No signs of infection.?There is a little localized rubor noted about the ulcerative sites however thereis no increased temperature noted.? No purulent drainage, no malodor, no palpable fluctuance/bogginess noted.? Healed Neuro moves all extremities Debridement Note Debridement Note No debridement was completed: No debridement was completed today (No debridementwas completed today as the wound has healed.) Post-Debridement Measurements and Additional Note: Post-Debridement Measurements/Treatment JORGE - Nurse 1 - General Ulcer Assessment Start: 10/22/22 08:23 Freq: Status: Active Protocol: GERALD Activity Type Activity Date Activity User E-sign Co-sign Detail Recorded Client Recorded Date Recorded By Document 10/22/22 08:23 BM [id number] 10/22/22 08:37 [facility] 10/22/22 08:23 - Today's Visit Information Type of service 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 ) Arrival Mode Ambulatory Transfer Assistance None Patient Identification Verified (Name & Yes ) Patient Requires Transmission-Based No Precautions Vital Signs Temperature (97.8 F-99.1 F) 97 F L Temperature Source Temporal Pulse Rate (60-100) 83 Pulse Location Monitor Respiratory Rate (12-18) 16 Respiratory rate source Observation Oxygen Delivery Method Room Air Blood Pressure (90/60-120/80) 159/90 H Blood Pressure Mean (mm Hg) 113 Source Monitor Position Sitting Blood Pressure Location Right Arm History Since Last Visit- (Skip if this is Patient's initial visit) Have you changed medications since your No last visit? Any new allergies or adverse reactions No Had a fall/change in ADL's that may No increase risk of falls Signs or symptoms of abuse and/or No neglect since last visit Have you been in the hospital since your No last visit? Has dressing in place as prescribed Yes Has compression in place as prescribed N/A Has offloadiing in place as prescribed N/A Experienced any changes in pain level or No management Left Footwear Regular Shoe Right Footwear Regular Shoe Pain Scale: 0-10 Numeric Is Patient Pain Free? Yes - Nurse 1 - General Ulcer Measurement Start: 10/22/22 08:23 Freq: Status: Active Protocol: Activity Type Activity Date Activity User E-sign Co-sign Detail Recorded Client Recorded Date Recorded By Document 10/22/22 08:23 [facility] [id number] 10/22/22 08:37 [facility] 10/22/22 08:23 Wound Center Nurse 1 #1 Left medial ankle -Combined with other wound No -Current Size (cm) - Length 1 -Current Size (cm) - Width 0.7 -Current Size (cm) - Depth 0.1 -Total Square Cm 0.7 -Date of Last Picture (Recall this 10/22/22 field) -Photo Taken Yes -Epithelialization None Present -Tunneling No -Undermining/Tunneling No -Circular Undermining No -Exudate Amt Small -Exudate Type Serous -Wound Margin Distinct, Outline Attached -Granulation Amt None Present (0 %) -Slough/Fibrin Yes -Necrosis Amt Large (67-100%) -Necrotic Tissue Type Eschar -Texture (Cristina-wound Skin Appearance) Assessed, Scarring -Moisture (Cristina-wound Skin Appearance) Assessed,Dry/ Scaly -Color (Cristina-wound Skin Appearance) No Abnormality -Temperature (Cristina-wound Skin No Abnormality Appearance) (Pt Warm) -Tenderness on Palpation (Cristina-wound No Skin Appearance) -Ulcer Cleansing Soap and Water -Foul Odor after Cleansing No -Anesthetic Used 5% Lidocaine Gel Lower Limb Edema Present Yes Left Calf (cm) 38.9 Left Ankle (cm) 26 WC - Nurse 2 - General Ulcer CM Notes Start: 10/22/22 08:23 Freq: Status: Active Protocol: Activity Type Activity Date Activity User E-sign Co-sign Detail Recorded Client Recorded Date Recorded By Document 10/22/22 09:15 PL [id number] 10/23/22 07:12 PL 10/22/22 09:15 Wound Center Nurse 2 #1 Left medial ankle -Time 09:15 -Correct Patient Yes -Correct Side, Site, Position Yes -Correct Procedure Yes -Procedure Performed Yes -Type of Procedure Debridement -Clinical Debridement Subcutaneous -Tissue Removed Subcutaneous -Post Debridement (cm) - Length 0.5 -Post Debridement (cm) - Width 0.4 -Post Debridement (cm) - Depth 0.2 -Total Square (Post) (cm) 0.20 -Area of Debridement (cm) - Length 0.5 -Area of Debridement (cm) - Width 0.4 -Total Square (Area) (cm) 0.20 -Tunneling No -Undermining/Tunneling No -Circular Undermining No -Wound/Ulcer Outcome Not Healed -Ulcer Cleansing Rinsed/ Irrigated with Saline -Foul Odor after Cleansing No -Bioengineered Tissue Yes -Type of Bioengineered Tissue Epifix 18mm Disc -Expiration Date 08/12/27 -Product Lot Number [id number] -Percent Used 100 -Bleeding Controlled with Pressure -Treatment Response Procedure Tolerated Well -Debridement - Subq, 1st 20sq cm No -Apply Skin Sub - 1st 25 sq cm - Legs 1 -Epifix 18mm Disc 3 Pain Scale: 0-10 Numeric Is Patient Pain Free? Yes - Nurse 3 - General Ulcer D/C NN Start: 10/22/22 08:23 Freq: Status: Active Protocol: Activity Type Activity Date Activity User E-sign Co-sign Detail Recorded Client Recorded Date Recorded By Document 10/22/22 09:31 [facility] [id number] 10/22/22 09:32 [facility] 10/22/22 09:31 Wound Care Center Nurse 3 #1 Left medial ankle -Ulcer Cleansing Rinsed/ Irrigated with Saline -Foul Odor after Cleansing No -Primary Dressing Covered/Secured with Dry Gauze & Roll Gauze, Secured with Tape Left -Tubular Bandage Single Layer -Size of Tubigrip Used Size D -Size D ($) 1 Pain Scale: 0-10 Numeric Is Patient Pain Free? Yes WC - Visit Discharge Discharge Condition Stable Ambulatory Status Ambulatory Transportation Private Auto Medication Reconcilliation completed & Yes provided to patient/care provider Clinical Summary of Care Provided Yes Assessment/Plan Assessment/Plan (1) DVT (deep venous thrombosis): CODE(S): I82.409 - Acute embolism and thrombosis of unspecified deep veinsof unspecified lower extremity (2) Venous insufficiency (chronic) (peripheral): CODE(S): I87.2 - Venous insufficiency (chronic) (peripheral) (3) Atrial fibrillation: CODE(S): I48.91 - Unspecified atrial fibrillation (4) Non-pressure chronic ulcer of left calf with fat layer exposed: CODE(S): L97.222 - Non-pressure chronic ulcer of left calf with fat layer exposed (5) Bilateral edema of lower extremity: CODE(S): R60.0 - Localized edema PLAN: Plan Patient seen and evaluated Ulceration to the distal aspect of the left lower extremity has healed today. No signs of infection. Tubigrip compression stocking applied to the left lower extremity to aid in edema control. Discussed a protective dry dressing to be placed over the site as the skin is still fragile following healing for the next 10 days. She may continue to wash site with soap and water and continue Tubigrip compression to discourage future wound development secondary to swelling. Ulceration has healed with use of EpiFix graft. I discussed continued application of Tubigrip compression stocking and ultimately transition to knee-high compression stocking of 20 to 30 mmHg to aid in her edema control.? She is instructed to elevate the lower extremities at alltimes of rest.? I discussed with her that reduction of the edema is essential inpreventing new wounds. Due to her diminished capillary fill time over the last few months LEAS was ordered 08/13/22 along with venous studies of bilateral lower extremities. LEAS demonstrates Triphasic and Biphasic Doppler at Right ankle and Biphasic Doppler at Left ankle. Digital incidices normal. Normal PVR. Venous studies demonstratedDVT of Right lower extremity. She was started on Eliquis. Encouraged adequate protein intake and collagen supplement Gregory to aid in her healing. The following wound care recommendations were made: Dressing: Protective gauze dressing for 10 days. Wash: Soap and water Tissue growth optimization: None Offload: Tubigrip compression stocking, elevating bilateral lower extremities.? Vascular: DP and PT pulses palpable.? CFT less than 5 seconds to the digits. LEAS demonstrates no arterial disease. Edema: Tubigrip compression stocking, elevating bilateral lower extremities at all times at rest Infection: No signs of infection Pain: May take [id number] Tylenol for discomfort Host factors: Chronic venous stasis with palpable varicosities to the lower extremity and foot, edema. ? I answered all the patient's questions.? At this time due to her wound having healed she is being discharged from the wound care center today. She may call wound healing center sooner if the patient has any questions or concerns or haveproblems with future wounds. 10/29/22 1236 <Electronically signed by Vinay Weiss DPM> Cosigner Signature (if applicable): CC: ~ Signed [facility] Work Phone: 1(148) 723-138804-13-2023 Progress note Author Vinay Weiss [facility] October 22, 2022 12:46pm Note Date/Time October 22, 2022 8:4 3am [facility] [address] [place] [address] Progress Note - Wound Care 10/22/22 0836 MR#: [id number] Acct: [id number] Name: YOSEF JENNINGS Rep #:[id number] : 1940 82 From: Vinay zimmerman DPM PCP: Dr. Tracey Smith MD Status:R EG RCR Location: History of Present Illness Date of Service: 10/22/22 Chief Complaint: Left lower extremity ulceration x2 History of Wound: Patient is an 81-year-old female who presents to the wound care center with chronic ulceration x2 to the left lower extremity. She states she became very itchy on the inside of the left ankle and scratched creating 2 ulcerative wounds in April 2022. She reported to the ED soon after and was diagnosed with cellulitis and treated with oral antibiotics. She states that over the next few months the wounds however failed to progress in healing. She did fall recently and went to the [facility] ED for stitches in the right hand where she also had her wounds evaluated. ED physician notes chronic venous stasis with normal capillary fill time, however capillary fill time is diminished from previous visit in April. She has been applying bacitracin to the wounds however has not been wearing compression stockings. She continues to work and is on her feet for most of the day. She states when she comes home her legs are swollen and the ulcerative sites ache. Subjective Subjective This is an 82-year-old female seen for follow-up in the wound care center today for left lower extremity ulceration secondary to chronic venous stasis.? 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 Currently denies calf pain or SOB. Has been changing dressings to left leg as needed. States leg has very little pain and wound is decreasing in size.? She denies any constitutional symptoms.? She has no further complaints. Objective Data Objective Data Vital Signs: Vital Signs Temp Pulse Resp BP 95.6 F L 78 18 157/99 H 10/10/22 00:54 10/10/22 00:54 10/10/22 00:54 10/10/22 00:54 Physical Exam Const alert, oriented x3 and no apparent distress General Appearance: cooperative HEENT normocephalic Eyes General Eye: normal appearance of both eyes Neck General: normal visual inspection Lymph Lymphatic: no lymphadenopathy noted and no lymphedema noted Resp normal respiratory effort Cardio regular rate and regular rhythm Extremity normal capillary refill, no calf tenderness and no pedal edema Extremity Narrative: Left lower extremity: DP and PT pulses are palpable.? CFT less than 5 seconds tothe digits.? Normal temperature gradient.? Hair growth absent to the digits/foot.? There is varicosities noted to the left lower extremity, periankle, and dorsal foot.? +3 pitting edema - improved.? Ulceration noted to the medial ankle overlying the region of the great saphenous vein.? There is hemosiderin deposition to the medial aspect of the leg consistent with venous stasis dermatitis. Right lower extremity: DP and PT pulses are palpable.? CFT less than 5 seconds to the digits.? Normal temperature gradient.? Hair growth is absent to the digits/foot.? There is varicosities noted to the right lower extremity, periankle, and dorsal foot.? +1 pitting edema noted Skin Wound Narrative: Left lower extremity ulceration x2.? Proximal medial ulceration is healed.? No signs of infection.? Distal medial ulceration is noted overlying the region of the great saphenous vein with mixed fibrogranular base.? No signs of infection.?There is a little localized rubor noted about the ulcerative sites however thereis no increased temperature noted.? No purulent drainage, no malodor, no palpable fluctuance/bogginess noted. Neuro moves all extremities Debridement Note Debridement Note Wound debrided: Left lower extremity Laterality: Left Wound Grade/Stage: Blue stage I Type of Debridement: Excisional debridement Anesthesia Used: 5% Lidocaine Gel Depth: Down to and including healthy tissue and in the subcutaneous layer Percentage of wound debrided: 100 Instrument Used: 5mm curette Tissue Removed: Fibrous, devitalized subcutaneous, biofilm, slough Severity: Fat Layer Exposed Amount of bleeding with debridement: Mild Bleeding Controlled with: Compression and gauze Patient tolerated procedure: Patient tolerated procedure well Assessment/Plan Assessment/Plan (1) DVT (deep venous thrombosis): CODE(S): I82.409 - Acute embolism and thrombosis of unspecified deep veinsof unspecified lower extremity (2) Venous insufficiency (chronic) (peripheral): CODE(S): I87.2 - Venous insufficiency (chronic) (peripheral) (3) Atrial fibrillation: CODE(S): I48.91 - Unspecified atrial fibrillation (4) Non-pressure chronic ulcer of left calf with fat layer exposed: CODE(S): L97.222 - Non-pressure chronic ulcer of left calf with fat layer exposed (5) Bilateral edema of lower extremity: CODE(S): R60.0 - Localized edema PLAN: Plan Patient seen and evaluated Ulceration to the distal aspect of the left lower extremity was debrided as noted in the clinical panel above.? Ulcerative site demonstrates no erythema, nolymphangitic streaking, no purulent drainage, no malodor, no palpable fluctuance/bogginess noted.? Proximal medial ulceration remains healed. The distal medial malleoli ulceration measures 0.5cm x 0.4 cm x 0.1 cm.? She has been approved for advanced wound care product.? Epi fix graft #7 applied to ulcerative sites and anchored with Adaptic touch and Steri-Strips with dry sterile dressing.? She was instructed to not get the site wet and only change outer dressings as needed.? Tubigrip compression stocking applied to the left lower extremity to aid in edema control. Ulceration demonstrates continued improvement in size following application of EpiFix graft. I discussed continued application of Tubigrip compression stocking and ultimately transition to knee-high compression stocking of 20 to 30 mmHg to aid in her edema control.? She is instructed to elevate the lower extremities at alltimes of rest.? I discussed with her that reduction of the edema is essential inher healing process. Due to her diminished capillary fill time over the last few months LEAS was ordered 08/13/22 along with venous studies of bilateral lower extremities. LEAS demonstrates Triphasic and Biphasic Doppler at Right ankle and Biphasic Doppler at Left ankle. Digital incidices normal. Normal PVR. Venous studies demonstratedDVT of Right lower extremity. She was started on Eliquis. Encouraged adequate protein intake and collagen supplement Gregory to aid in her healing. I discussed with her today signs and symptoms of infection to continue to observe.? She was instructed that if she notices any increasing redness about the ulcerative sites that moves up the leg, from the wounds, increased foul odorfrom the wounds purulent drainage, or if she experiences fever greater than 101 degree, or any nausea, vomiting, or chills that these are signs of a progressinginfection and she is to report to the ED.? She voices understanding of this discussion today. The following wound care recommendations were made: Dressing: EpiFix graft, Adaptic touch, Steri-Strips, DSD with Tubigrip Wash: Do not get wet Tissue growth optimization: EpiFix Offload: Tubigrip compression stocking, elevating bilateral lower extremities.? She is to ensure she does not rest the left lower extremity against the right lower extremity to prevent continued pressure during sleeping Vascular: DP and PT pulses palpable.? CFT less than 5 seconds to the digits. LEAS demonstrates no arterial disease. Edema: Tubigrip compression stocking, elevating bilateral lower extremities at all times at rest Infection: No signs of infection Pain: May take [id number] Tylenol for discomfort Host factors: Chronic venous stasis with palpable varicosities to the lower extremity and foot, edema. ? I answered all the patient's questions.? To return to the wound healing center in 1 week or call sooner if the patient has any questions or concerns. 10/22/22 1246 <Electronically signed by Vinay Weiss DPM> Cosigner Signature (if applicable): CC: ~ Signed [facility] Work Phone: [phone] Progress note Author Vinay Weiss [facility] October 08, 2022 8:58am Note Date/Time October 08, 2022 8:2 2am [facility] [address] [place] [address] Progress Note - Wound Care 10/08/22 0822 MR#: [id number] Acct: [id number] Name: YOSEF JENNINGS Rep #:[id number] : 1940 82 From: Vinay zimmerman DPM PCP: Dr. Tracey Smith MD Status:R EG RCR Location: History of Present Illness Date of Service: 10/08/22 Chief Complaint: Left lower extremity ulceration x2 History of Wound: Patient is an 81-year-old female who presents to the wound care center with chronic ulceration x2 to the left lower extremity. She states she became very itchy on the inside of the left ankle and scratched creating 2 ulcerative wounds in April 2022. She reported to the ED soon after and was diagnosed with cellulitis and treated with oral antibiotics. She states that over the next few months the wounds however failed to progress in healing. She did fall recently and went to the [facility] ED for stitches in the right hand where she also had her wounds evaluated. ED physician notes chronic venous stasis with normal capillary fill time, however capillary fill time is diminished from previous visit in April. She has been applying bacitracin to the wounds however has not been wearing compression stockings. She continues to work and is on her feet for most of the day. She states when she comes home her legs are swollen and the ulcerative sites ache. Subjective Subjective This is an 82-year-old female seen for follow-up in the wound care center today for left lower extremity ulceration secondary to chronic venous stasis.? 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 Currently denies calf pain or SOB. Has been changing dressings to left leg as needed. States leg is less painful each week and can tell the wound is decreasing in size.? She denies any constitutional symptoms.? She has no further complaints. Objective Data Objective Data Vital Signs: Vital Signs Temp Pulse Resp BP 95.7 F L 93 18 161/88 H 10/01/22 08:20 10/01/22 08:20 10/01/22 08:20 10/01/22 08:20 Physical Exam Const alert, oriented x3 and no apparent distress General Appearance: cooperative HEENT normocephalic Eyes General Eye: normal appearance of both eyes Neck General: normal visual inspection Lymph Lymphatic: no lymphadenopathy noted and no lymphedema noted Resp normal respiratory effort Cardio regular rate and regular rhythm Extremity normal capillary refill, no joint enlargement, no calf tenderness and no pedal edema Extremity Narrative: Left lower extremity: DP and PT pulses are palpable.? CFT less than 5 seconds tothe digits.? Normal temperature gradient.? Hair growth absent to the digits/foot.? There is varicosities noted to the left lower extremity, periankle, and dorsal foot.? +3 pitting edema - improved.? Ulceration noted to the medial ankle overlying the region of the great saphenous vein.? There is hemosiderin deposition to the medial aspect of the leg consistent with venous stasis dermatitis. Right lower extremity: DP and PT pulses are palpable.? CFT less than 5 seconds to the digits.? Normal temperature gradient.? Hair growth is absent to the digits/foot.? There is varicosities noted to the right lower extremity, periankle, and dorsal foot.? +1 pitting edema noted Skin no rashes or lesions noted, skin turgor normal and no jaundice Wound Narrative: Left lower extremity ulceration x2.? Proximal medial ulceration is healed.? No signs of infection.? Distal medial ulceration is noted overlying the region of the great saphenous vein with mixed fibrogranular base.? No signs of infection.?There is a little localized rubor noted about the ulcerative sites however thereis no increased temperature noted.? No purulent drainage, no malodor, no palpable fluctuance/bogginess noted. Neuro moves all extremities Debridement Note Debridement Note Wound debrided: Left lower extremity Laterality: Left Wound Grade/Stage: Blue stage I Type of Debridement: Excisional debridement Anesthesia Used: 5% Lidocaine Gel Depth: Down to and including healthy tissue and in the subcutaneous layer Percentage of wound debrided: 100 Instrument Used: 5mm curette Tissue Removed: Fibrous, devitalized subcutaneous, biofilm, slough Severity: Fat Layer Exposed Amount of bleeding with debridement: Mild Bleeding Controlled with: Compression and gauze Patient tolerated procedure: Patient tolerated procedure well Post-Debridement Measurements and Additional Note: Post-Debridement Measurements/Treatment - Nurse 1 - General Ulcer Assessment Start: 09/10/22 08:54 Freq: Status: Active Protocol: GERALD Activity Type Activity Date Activity User E-sign Co-sign Detail Recorded Client Recorded Date Recorded By Document 09/10/22 08:55 ML [id number] 09/10/22 09:01 ML Document 09/17/22 08:29 AK [id number] 09/17/22 08:35 AK Document 09/24/22 08:23 AK [id number] 09/24/22 08:25 AK Document 10/01/22 08:20 JF Desktop 10/01/22 08:22 JF 09/10/22 09/17/22 09/24/22 08:55 08:29 08:23 - Today's Visit Information Type of service Follow-up Visit Follow-up Visit 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 (Physician/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 (Physician/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 ) ) ) Arrival Mode Ambulatory Ambulatory Ambulatory Transfer Assistance None Patient Identification Verified (Name & Yes Yes Yes ) Patient Requires Transmission-Based No No No Precautions Safety Precautions NA NA NA Vital Signs Temperature (97.8 F-99.1 F) 96.0 F L 97.2 F L 96.3 F L Temperature Source Temporal Temporal Temporal Pulse Rate (60-100) 92 101 H 69 Pulse Location Monitor Monitor Monitor Respiratory Rate (12-18) 17 Respiratory rate source Observation Blood Pressure (90/60-120/80) 160/91 H 155/95 H 155/80 H Blood Pressure Mean (mm Hg) 114 115 105 Source Monitor Monitor Monitor Position Sitting Blood Pressure Location Right Arm History Since Last Visit- (Skip if this is Patient's initial visit) Have you changed medications since your No No No last visit? Any new allergies or adverse reactions No No No Had a fall/change in ADL's that may No No No increase risk of falls Signs or symptoms of abuse and/or No No No neglect since last visit Have you been in the hospital since your No No No last visit? Has dressing in place as prescribed Yes Yes Yes Has compression in place as prescribed N/A Yes Yes Has offloadiing in place as prescribed N/A N/A N/A Experienced any changes in pain level or No No No management Left Footwear Regular Shoe Regular Shoe Regular Shoe Right Footwear Regular Shoe Regular Shoe Regular Shoe Pain Scale: 0-10 Numeric Is Patient Pain Free? Yes Yes Yes 10/01/22 08:20 WC - Today's Visit Information Type of service 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 ) Arrival Mode Ambulatory Transfer Assistance Patient Identification Verified (Name & Yes ) Patient Requires Transmission-Based No Precautions Safety Precautions Vital Signs Temperature (97.8 F-99.1 F) 95.7 F L Temperature Source Temporal Pulse Rate (60-100) 93 Pulse Location Monitor Respiratory Rate (12-18) 18 Respiratory rate source Observation Blood Pressure (90/60-120/80) 161/88 H Blood Pressure Mean (mm Hg) 112 Source Monitor Position Semi-Fowlers Blood Pressure Location Left Arm History Since Last Visit- (Skip if this is Patient's initial visit) Have you changed medications since your last visit? Any new allergies or adverse reactions Had a fall/change in ADL's that may increase risk of falls Signs or symptoms of abuse and/or neglect since last visit Have you been in the hospital since your last visit? Has dressing in place as prescribed Has compression in place as prescribed Has offloadiing in place as prescribed Experienced any changes in pain level or management Left Footwear Regular Shoe Right Footwear Regular Shoe Pain Scale: 0-10 Numeric Is Patient Pain Free? Yes - Nurse 1 - General Ulcer Measurement Start: 09/10/22 08:54 Freq: Status: Active Protocol: Activity Type Activity Date Activity User E-sign Co-sign Detail Recorded Client Recorded Date Recorded By Document 09/10/22 08:55 ML [id number] 09/10/22 09:01 ML Document 09/17/22 08:29 AK [id number] 09/17/22 08:35 AK Document 03/16/23 08:23 AK [id number] 09/24/22 08:25 AK Document 10/01/22 08:20 JF Desktop 10/01/22 08:22 JF 09/10/22 09/17/22 09/24/22 08:55 08:29 08:23 Wound Center Nurse 1 #2 Left superior LE -Combined with other wound No -Current Size (cm) - Length 0.4 0.1 -Current Size (cm) - Width 3 1 -Current Size (cm) - Depth 0.1 0.1 -Total Square Cm 1.2 0.1 -Photo Taken Yes -Tunneling No -Undermining/Tunneling No -Circular Undermining No -Change in Wound Grade/Stage No -Exudate Amt Small None Present -Exudate Type Serosanguineous Serosanguineous -Wound Margin Distinct, Distinct, Outline Outline Attached Attached -Granulation Amt None Present (0 None Present (0 %) %) -Granulation Quality N/A -Slough/Fibrin No No -Necrosis Amt None Present (0 None Present (0 %) %) -Necrotic Tissue Type Adherent Slough -Structure Exposed N/A -Texture (Cristina-wound Skin Appearance) No Abnormality, Assessed -Moisture (Cristina-wound Skin Appearance) Assessed No Abnormality, Assessed -Color (Cristina-wound Skin Appearance) Assessed No Abnormality, Assessed -Temperature (Cristina-wound Skin No Abnormality Appearance) (Pt Warm) -Tenderness on Palpation (Cristina-wound No Yes Skin Appearance) -Ulcer Cleansing Rinsed/ Rinsed/ Irrigated with Irrigated with Saline Saline -Foul Odor after Cleansing No No -Anesthetic Used 5% Lidocaine 5% Lidocaine Gel Gel #1 Left medial ankle -Combined with other wound No No -Current Size (cm) - Length 1.5 1.4 1.3 -Current Size (cm) - Width 1.1 1 0.8 -Current Size (cm) - Depth 0.1 0.1 0.1 -Total Square Cm 1.65 1.4 1.04 -Photo Taken Yes No -Epithelialization -Tunneling No No -Undermining/Tunneling No No -Circular Undermining No No -Change in Wound Grade/Stage No No -Exudate Amt Small Medium Medium -Exudate Type Serosanguineous Serosanguineous Serosanguineous -Wound Margin Distinct, Distinct, Outline Outline Attached Attached -Granulation Amt Small (1-33%) None Present (0 Large (67-100%) %) -Granulation Quality Mimbres,Red Mimbres -Slough/Fibrin No No Yes -Necrosis Amt None Present (0 None Present (0 Small (1-33%) %) %) -Necrotic Tissue Type Adherent Slough -Structure Exposed N/A N/A -Texture (Cristina-wound Skin Appearance) Assessed No Abnormality, No Abnormality, Assessed Assessed -Moisture (Cristina-wound Skin Appearance) Assessed No Abnormality, No Abnormality, Assessed Assessed -Color (Cristina-wound Skin Appearance) Assessed No Abnormality, No Abnormality, Assessed Assessed -Temperature (Cristina-wound Skin No Abnormality No Abnormality No Abnormality Appearance) (Pt Warm) (Pt Warm) (Pt Warm) -Tenderness on Palpation (Cristina-wound No No No Skin Appearance) -Ulcer Cleansing Rinsed/ Rinsed/ Soap and Water Irrigated with Irrigated with Saline Saline -Foul Odor after Cleansing No No No -Anesthetic Used 5% Lidocaine 5% Lidocaine 5% Lidocaine Gel Gel Gel Lower Limb Edema Present No Left Calf (cm) 39 37 Left Ankle (cm) 26 26 10/01/22 08:20 Wound Center Nurse 1 #2 Left superior LE -Combined with other wound -Current Size (cm) - Length -Current Size (cm) - Width -Current Size (cm) - Depth -Total Square Cm -Photo Taken -Tunneling -Undermining/Tunneling -Circular Undermining -Change in Wound Grade/Stage -Exudate Amt -Exudate Type -Wound Margin -Granulation Amt -Granulation Quality -Slough/Fibrin -Necrosis Amt -Necrotic Tissue Type -Structure Exposed -Texture (Cristina-wound Skin Appearance) -Moisture (Cristina-wound Skin Appearance) -Color (Cristina-wound Skin Appearance) -Temperature (Cristina-wound Skin Appearance) -Tenderness on Palpation (Cristina-wound Skin Appearance) -Ulcer Cleansing -Foul Odor after Cleansing -Anesthetic Used #1 Left medial ankle -Combined with other wound No -Current Size (cm) - Length 1.0 -Current Size (cm) - Width 0.8 -Current Size (cm) - Depth 0.1 -Total Square Cm 0.80 -Photo Taken Yes -Epithelialization Small 1-33% -Tunneling No -Undermining/Tunneling No -Circular Undermining No -Change in Wound Grade/Stage -Exudate Amt Small -Exudate Type Serosanguineous -Wound Margin Indistinct, Non -Visible -Granulation Amt None Present (0 %) -Granulation Quality -Slough/Fibrin Yes -Necrosis Amt Large (67-100%) -Necrotic Tissue Type Adherent Slough -Structure Exposed N/A -Texture (Cristina-wound Skin Appearance) Assessed, Localized Edema -Moisture (Cristina-wound Skin Appearance) Assessed,Dry/ Scaly -Color (Cristina-wound Skin Appearance) Assessed -Temperature (Cristina-wound Skin No Abnormality Appearance) (Pt Warm) -Tenderness on Palpation (Cristina-wound No Skin Appearance) -Ulcer Cleansing Wound Cleanser -Foul Odor after Cleansing No -Anesthetic Used 5% Lidocaine Gel Lower Limb Edema Present Yes Left Calf (cm) 38.2 Left Ankle (cm) 27.5 WC - Nurse 2 - General Ulcer CM Notes Start: 09/10/22 08:54 Freq: Status: Active Protocol: Activity Type Activity Date Activity User E-sign Co-sign Detail Recorded Client Recorded Date Recorded By Document 09/10/22 11:26 PL [id number] 09/10/22 11:29 PL Document 09/17/22 11:34 PL [id number] 09/17/22 11:36 PL Document 09/24/22 11:36 PL [id number] 09/24/22 11:37 PL Document 10/01/22 13:21 PL [id number] 10/01/22 13:23 PL 09/10/22 09/17/22 09/24/22 11:26 11:34 11:36 Wound Center Nurse 2 #2 Left superior LE -Time 09:04 -Correct Patient Yes -Correct Side, Site, Position Yes -Correct Procedure Yes -Procedure Performed Yes No -Type of Procedure Debridement -Clinical Debridement Subcutaneous -Tissue Removed Subcutaneous -Post Debridement (cm) - Length 0.2 -Post Debridement (cm) - Width 0.1 -Post Debridement (cm) - Depth 0.1 -Total Square (Post) (cm) 0.02 -Area of Debridement (cm) - Length 0.2 -Area of Debridement (cm) - Width 0.1 -Total Square (Area) (cm) 0.02 -Tunneling No -Undermining/Tunneling No -Circular Undermining No -Wound/Ulcer Outcome Not Healed Healed- Epithelialized -Ulcer Cleansing Rinsed/ Irrigated with Saline -Foul Odor after Cleansing No -Bioengineered Tissue No -Bleeding Controlled with Pressure -Treatment Response Procedure Tolerated Well -Debridement - Subq, 1st 20sq cm No #1 Left medial ankle -Time 09:04 09:11 08:27 -Correct Patient Yes Yes Yes -Correct Side, Site, Position Yes Yes Yes -Correct Procedure Yes Yes Yes -Procedure Performed Yes Yes Yes -Type of Procedure Debridement Debridement Debridement -Clinical Debridement Subcutaneous Subcutaneous Subcutaneous -Tissue Removed Subcutaneous Subcutaneous Subcutaneous -Post Debridement (cm) - Length 1.4 1.3 1.3 -Post Debridement (cm) - Width 1.2 0.9 0.9 -Post Debridement (cm) - Depth 0.1 0.1 0.1 -Total Square (Post) (cm) 1.68 1.17 1.17 -Area of Debridement (cm) - Length 1.4 1.3 1.3 -Area of Debridement (cm) - Width 1.2 0.9 0.9 -Total Square (Area) (cm) 1.68 1.17 1.17 -Tunneling No No No -Undermining/Tunneling No No No -Circular Undermining No No No -Wound/Ulcer Outcome Not Healed Not Healed Not Healed -Ulcer Cleansing Rinsed/ Rinsed/ Rinsed/ Irrigated with Irrigated with Irrigated with Saline Saline Saline -Foul Odor after Cleansing No No No -Bioengineered Tissue Yes Yes Yes -Type of Bioengineered Tissue Epifix 18mm Epifix 18mm Epifix 18mm Disc Disc Disc -Expiration Date 06/11/27 06/11/27 07/12/27 -Product Lot Number [id number] -Percent Used 100 100 100 -Bleeding Controlled with Pressure Pressure Pressure -Treatment Response Procedure Procedure Procedure Tolerated Well Tolerated Well Tolerated Well -Debridement - Subq, 1st 20sq cm No No No -Apply Skin Sub - 1st 25 sq cm - Legs 1 1 1 -Epifix 18mm Disc 3 3 3 Pain Scale: 0-10 Numeric Is Patient Pain Free? Yes Yes Yes 10/01/22 13:21 Wound Center Nurse 2 #2 Left superior LE -Time -Correct Patient -Correct Side, Site, Position -Correct Procedure -Procedure Performed -Type of Procedure -Clinical Debridement -Tissue Removed -Post Debridement (cm) - Length -Post Debridement (cm) - Width -Post Debridement (cm) - Depth -Total Square (Post) (cm) -Area of Debridement (cm) - Length -Area of Debridement (cm) - Width -Total Square (Area) (cm) -Tunneling -Undermining/Tunneling -Circular Undermining -Wound/Ulcer Outcome -Ulcer Cleansing -Foul Odor after Cleansing -Bioengineered Tissue -Bleeding Controlled with -Treatment Response -Debridement - Subq, 1st 20sq cm #1 Left medial ankle -Time 08:30 -Correct Patient Yes -Correct Side, Site, Position Yes -Correct Procedure Yes -Procedure Performed Yes -Type of Procedure Debridement -Clinical Debridement Subcutaneous -Tissue Removed Subcutaneous -Post Debridement (cm) - Length 0.9 -Post Debridement (cm) - Width 0.8 -Post Debridement (cm) - Depth 0.1 -Total Square (Post) (cm) 0.72 -Area of Debridement (cm) - Length 0.9 -Area of Debridement (cm) - Width 0.8 -Total Square (Area) (cm) 0.72 -Tunneling No -Undermining/Tunneling No -Circular Undermining No -Wound/Ulcer Outcome Not Healed -Ulcer Cleansing Rinsed/ Irrigated with Saline -Foul Odor after Cleansing No -Bioengineered Tissue Yes -Type of Bioengineered Tissue Epifix 18mm Disc -Expiration Date 07/12/27 -Product Lot Number [id number] -Percent Used 100 -Bleeding Controlled with Pressure -Treatment Response Procedure Tolerated Well -Debridement - Subq, 1st 20sq cm No -Apply Skin Sub - 1st 25 sq cm - Legs 1 -Epifix 18mm Disc 3 Pain Scale: 0-10 Numeric Is Patient Pain Free? Yes WC - Nurse 3 - General Ulcer D/C NN Start: 09/10/22 08:54 Freq: Status: Active Protocol: Activity Type Activity Date Activity User E-sign Co-sign Detail Recorded Client Recorded Date Recorded By Document 09/10/22 09:17 ML [id number] 09/10/22 09:20 ML Document 09/17/22 09:27 RB [id number] 09/17/22 09:29 RB Document 10/01/22 08:39 JF [id number] 10/01/22 08:40 JF 09/10/22 09/17/22 10/01/22 09:17 09:27 08:39 Wound Care Center Nurse 3 #2 Left superior LE -Other Dressing epifix,adaptic -Primary Dressing Covered/Secured with Dry Gauze & Dry Gauze,Dry Roll Gauze Gauze & Roll Gauze,Secured with Tape #1 Left medial ankle -Ulcer Cleansing Rinsed/ Irrigated with Saline -Foul Odor after Cleansing No -Other Dressing epifix,adaptic -Primary Dressing Covered/Secured with Dry Gauze,Dry Dry Gauze & Gauze & Roll Roll Gauze, Gauze,Secured Secured with with Tape Tape Right -Tubular Bandage Single Layer -Size of Tubigrip Used Size E -Size E ($) 1 Left -Tubular Bandage Single Layer Single Layer -Size of Tubigrip Used Size E Size E -Size E ($) 1 1 -Other single layer tubigrip Treatment Response Procedure Tolerated Well Pain Scale: 0-10 Numeric Is Patient Pain Free? Yes Yes Yes Teaching: Wound Center Compression Wraps & Stockings -Person Taught Patient -Teaching Method Discussion -Response to teaching Reinforcement needed WC - Visit Discharge Discharge Condition Stable Stable Ambulatory Status Ambulatory Ambulatory Transportation Private Auto Private Auto Medication Reconcilliation completed & No Yes provided to patient/care provider Clinical Summary of Care Provided Yes Yes Assessment/Plan Assessment/Plan (1) Non-pressure chronic ulcer of left calf with fat layer exposed: CODE(S): L97.222 - Non-pressure chronic ulcer of left calf with fat layer exposed (2) Bilateral edema of lower extremity: CODE(S): R60.0 - Localized edema (3) Venous insufficiency (chronic) (peripheral): CODE(S): I87.2 - Venous insufficiency (chronic) (peripheral) PLAN: Plan Patient seen and evaluated Ulceration to the distal aspect of the left lower extremity was debrided as noted in the clinical panel above.? Ulcerative site demonstrates no erythema, nolymphangitic streaking, no purulent drainage, no malodor, no palpable fluctuance/bogginess noted.? Proximal medial ulceration remains healed. The distal medial malleoli ulceration measures 0.8cm x 0.6 cm x 0.1 cm.? She has been approved for advanced wound care product.? Epi fix graft #6 applied to ulcerative sites and anchored with Adaptic touch and Steri-Strips with dry sterile dressing.? She was instructed to not get the site wet and only change outer dressings as needed.? Tubigrip compression stocking applied to the left lower extremity to aid in edema control. Ulceration demonstrates continued improvement in size following application of EpiFix graft. I discussed continued application of Tubigrip compression stocking and ultimately transition to knee-high compression stocking of 20 to 30 mmHg to aid in her edema control.? She is instructed to elevate the lower extremities at alltimes of rest.? I discussed with her that reduction of the edema is essential inher healing process. Due to her diminished capillary fill time over the last few months LEAS was ordered 08/13/22 along with venous studies of bilateral lower extremities. LEAS demonstrates Triphasic and Biphasic Doppler at Right ankle and Biphasic Doppler at Left ankle. Digital incidices normal. Normal PVR. Venous studies demonstratedDVT of Right lower extremity. She was started on Eliquis. Encouraged adequate protein intake and collagen supplement Gregory to aid in her healing. I discussed with her today signs and symptoms of infection to continue to observe.? She was instructed that if she notices any increasing redness about the ulcerative sites that moves up the leg, from the wounds, increased foul odorfrom the wounds purulent drainage, or if she experiences fever greater than 101 degree, or any nausea, vomiting, or chills that these are signs of a progressinginfection and she is to report to the ED.? She voices understanding of this discussion today. The following wound care recommendations were made: Dressing: EpiFix graft, Adaptic touch, Steri-Strips, DSD with Tubigrip Wash: Do not get wet Tissue growth optimization: EpiFix Offload: Tubigrip compression stocking, elevating bilateral lower extremities.? She is to ensure she does not rest the left lower extremity against the right lower extremity to prevent continued pressure during sleeping Vascular: DP and PT pulses palpable.? CFT less than 5 seconds to the digits. LEAS demonstrates no arterial disease. Edema: Tubigrip compression stocking, elevating bilateral lower extremities at all times at rest Infection: No signs of infection Pain: May take [id number] Tylenol for discomfort Host factors: Chronic venous stasis with palpable varicosities to the lower extremity and foot, edema. ? I answered all the patient's questions.? To return to the wound healing center in 1 week or call sooner if the patient has any questions or concerns. 10/08/22 0858 <Electronically signed by Vinay Weiss DPM> Cosigner Signature (if applicable): CC: ~ Signed [facility] Work Phone: [phone] Progress note Author Vinay Weiss [facility] October 01, 2022 9:02am Note Date/Time October 01, 2022 8:2 0am [facility] [address] [place] [address] Progress Note - Wound Care 10/01/22 0819 MR#: [id number] Acct: [id number] Name: YOSEF JENNINGS Rep #:[id number] : 1940 82 From: Vinay zimmerman DPM PCP: Dr. Tracey Smith MD Status:R EG RCR Location: History of Present Illness Date of Service: 10/01/22 Chief Complaint: Left lower extremity ulceration x2 History of Wound: Patient is an 81-year-old female who presents to the wound care center with chronic ulceration x2 to the left lower extremity. She states she became very itchy on the inside of the left ankle and scratched creating 2 ulcerative wounds in April 2022. She reported to the ED soon after and was diagnosed with cellulitis and treated with oral antibiotics. She states that over the next few months the wounds however failed to progress in healing. She did fall recently and went to the [facility] ED for stitches in the right hand where she also had her wounds evaluated. ED physician notes chronic venous stasis with normal capillary fill time, however capillary fill time is diminished from previous visit in April. She has been applying bacitracin to the wounds however has not been wearing compression stockings. She continues to work and is on her feet for most of the day. She states when she comes home her legs are swollen and the ulcerative sites ache. Subjective Subjective This is an 82-year-old female seen for follow-up in the wound care center today for left lower extremity ulceration secondary to chronic venous stasis.? She hasconfirmed DVT and on Eliquis.? Currently denies calf pain or SOB. Has been changing dressings to left leg as needed. States leg is getting less painful overall and can tell the wound is decreasing in size. She denies any constitutional symptoms.? She has no further complaints. Objective Data Objective Data Vital Signs: Vital Signs Temp Pulse Resp BP 96.3 F L 69 17 155/80 H 09/24/22 08:23 09/24/22 08:23 09/10/22 08:55 09/24/22 08:23 Physical Exam Const alert, oriented x3 and no apparent distress General Appearance: cooperative HEENT normocephalic Eyes General Eye: normal appearance of both eyes Neck General: normal visual inspection Lymph Lymphatic: no lymphadenopathy noted and no lymphedema noted Resp normal respiratory effort Cardio regular rate and regular rhythm Extremity normal capillary refill, no joint enlargement, no calf tenderness and no pedal edema Extremity Narrative: Left lower extremity: DP and PT pulses are palpable.? CFT less than 5 seconds tothe digits.? Normal temperature gradient.? Hair growth absent to the digits/foot.? There is varicosities noted to the left lower extremity, periankle, and dorsal foot.? +3 pitting edema - improved.? Ulceration noted to the medial ankle overlying the region of the great saphenous vein.? There is hemosiderin deposition to the medial aspect of the leg consistent with venous stasis dermatitis. Right lower extremity: DP and PT pulses are palpable.? CFT less than 5 seconds to the digits.? Normal temperature gradient.? Hair growth is absent to the digits/foot.? There is varicosities noted to the right lower extremity, periankle, and dorsal foot.? +1 pitting edema noted Skin no rashes or lesions noted, skin turgor normal and no jaundice Wound Narrative: Left lower extremity ulceration x2.? Proximal medial ulceration is healed.? No signs of infection.? Distal medial ulceration is noted overlying the region of the great saphenous vein with mixed fibrogranular base.? No signs of infection.?There is a little localized rubor noted about the ulcerative sites however thereis no increased temperature noted.? No purulent drainage, no malodor, no palpable fluctuance/bogginess noted. Neuro moves all extremities Debridement Note Debridement Note Wound debrided: Left lower extremity Laterality: Left Wound Grade/Stage: Blue stage I Type of Debridement: Excisional debridement Anesthesia Used: 5% Lidocaine Gel Depth: Down to and including healthy tissue and in the subcutaneous layer Percentage of wound debrided: 100 Instrument Used: 5mm curette Tissue Removed: Fibrous, devitalized subcutaneous, biofilm, slough Severity: Fat Layer Exposed Amount of bleeding with debridement: Mild Bleeding Controlled with: Compression and gauze Patient tolerated procedure: Patient tolerated procedure well Post-Debridement Measurements and Additional Note: Post-Debridement Measurements/Treatment WC - Nurse 1 - General Ulcer Assessment Start: 09/10/22 08:54 Freq: Status: Active Protocol: GERALD Activity Type Activity Date Activity User E-sign Co-sign Detail Recorded Client Recorded Date Recorded By Document 09/10/22 08:55 ML [id number] 09/10/22 09:01 ML Document 09/17/22 08:29 AK [id number] 09/17/22 08:35 AK Document 09/24/22 08:23 AK [id number] 09/24/22 08:25 AK 09/10/22 09/17/22 09/24/22 08:55 08:29 08:23 - Today's Visit Information Type of service Follow-up Visit Follow-up Visit 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 (Physician/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 (Physician/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 ) ) ) Arrival Mode Ambulatory Ambulatory Ambulatory Transfer Assistance None Patient Identification Verified (Name & Yes Yes Yes ) Patient Requires Transmission-Based No No No Precautions Safety Precautions NA NA NA Vital Signs Temperature (97.8 F-99.1 F) 96.0 F L 97.2 F L 96.3 F L Temperature Source Temporal Temporal Temporal Pulse Rate (60-100) 92 101 H 69 Pulse Location Monitor Monitor Monitor Respiratory Rate (12-18) 17 Respiratory rate source Observation Blood Pressure (90/60-120/80) 160/91 H 155/95 H 155/80 H Blood Pressure Mean (mm Hg) 114 115 105 Source Monitor Monitor Monitor Position Sitting Blood Pressure Location Right Arm History Since Last Visit- (Skip if this is Patient's initial visit) Have you changed medications since your No No No last visit? Any new allergies or adverse reactions No No No Had a fall/change in ADL's that may No No No increase risk of falls Signs or symptoms of abuse and/or No No No neglect since last visit Have you been in the hospital since your No No No last visit? Has dressing in place as prescribed Yes Yes Yes Has compression in place as prescribed N/A Yes Yes Has offloadiing in place as prescribed N/A N/A N/A Experienced any changes in pain level or No No No management Left Footwear Regular Shoe Regular Shoe Regular Shoe Right Footwear Regular Shoe Regular Shoe Regular Shoe Pain Scale: 0-10 Numeric Is Patient Pain Free? Yes Yes Yes WC - Nurse 1 - General Ulcer Measurement Start: 09/10/22 08:54 Freq: Status: Active Protocol: Activity Type Activity Date Activity User E-sign Co-sign Detail Recorded Client Recorded Date Recorded By Document 09/10/22 08:55 ML [id number] 09/10/22 09:01 ML Document 09/17/22 08:29 AK [id number] 09/17/22 08:35 AK Document 09/24/22 08:23 AK [id number] 09/24/22 08:25 AK 09/10/22 09/17/22 09/24/22 08:55 08:29 08:23 Wound Center Nurse 1 #2 Left superior LE -Combined with other wound No -Current Size (cm) - Length 0.4 0.1 -Current Size (cm) - Width 3 1 -Current Size (cm) - Depth 0.1 0.1 -Total Square Cm 1.2 0.1 -Photo Taken Yes -Tunneling No -Undermining/Tunneling No -Circular Undermining No -Change in Wound Grade/Stage No -Exudate Amt Small None Present -Exudate Type Serosanguineous Serosanguineous -Wound Margin Distinct, Distinct, Outline Outline Attached Attached -Granulation Amt None Present (0 None Present (0 %) %) -Granulation Quality N/A -Slough/Fibrin No No -Necrosis Amt None Present (0 None Present (0 %) %) -Necrotic Tissue Type Adherent Slough -Structure Exposed N/A -Texture (Cristina-wound Skin Appearance) No Abnormality, Assessed -Moisture (Cristina-wound Skin Appearance) Assessed No Abnormality, Assessed -Color (Cristina-wound Skin Appearance) Assessed No Abnormality, Assessed -Temperature (Cristina-wound Skin No Abnormality Appearance) (Pt Warm) -Tenderness on Palpation (Cristina-wound No Yes Skin Appearance) -Ulcer Cleansing Rinsed/ Rinsed/ Irrigated with Irrigated with Saline Saline -Foul Odor after Cleansing No No -Anesthetic Used 5% Lidocaine 5% Lidocaine Gel Gel #1 Left medial ankle -Combined with other wound No No -Current Size (cm) - Length 1.5 1.4 1.3 -Current Size (cm) - Width 1.1 1 0.8 -Current Size (cm) - Depth 0.1 0.1 0.1 -Total Square Cm 1.65 1.4 1.04 -Photo Taken Yes No -Tunneling No No -Undermining/Tunneling No No -Circular Undermining No No -Change in Wound Grade/Stage No No -Exudate Amt Small Medium Medium -Exudate Type Serosanguineous Serosanguineous Serosanguineous -Wound Margin Distinct, Distinct, Outline Outline Attached Attached -Granulation Amt Small (1-33%) None Present (0 Large (67-100%) %) -Granulation Quality Mimbres,Red Mimbres -Slough/Fibrin No No Yes -Necrosis Amt None Present (0 None Present (0 Small (1-33%) %) %) -Necrotic Tissue Type Adherent Slough -Structure Exposed N/A N/A -Texture (Cristina-wound Skin Appearance) Assessed No Abnormality, No Abnormality, Assessed Assessed -Moisture (Cristina-wound Skin Appearance) Assessed No Abnormality, No Abnormality, Assessed Assessed -Color (Cristina-wound Skin Appearance) Assessed No Abnormality, No Abnormality, Assessed Assessed -Temperature (Cristina-wound Skin No Abnormality No Abnormality No Abnormality Appearance) (Pt Warm) (Pt Warm) (Pt Warm) -Tenderness on Palpation (Cristina-wound No No No Skin Appearance) -Ulcer Cleansing Rinsed/ Rinsed/ Soap and Water Irrigated with Irrigated with Saline Saline -Foul Odor after Cleansing No No No -Anesthetic Used 5% Lidocaine 5% Lidocaine 5% Lidocaine Gel Gel Gel Lower Limb Edema Present No Left Calf (cm) 39 37 Left Ankle (cm) 26 26 WC - Nurse 2 - General Ulcer CM Notes Start: 09/10/22 08:54 Freq: Status: Active Protocol: Activity Type Activity Date Activity User E-sign Co-sign Detail Recorded Client Recorded Date Recorded By Document 09/10/22 11:26 PL [id number] 09/10/22 11:29 PL Document 09/17/22 11:34 PL [id number] 09/17/22 11:36 PL Document 09/24/22 11:36 PL [id number] 09/24/22 11:37 PL 09/10/22 09/17/22 09/24/22 11:26 11:34 11:36 Wound Center Nurse 2 #2 Left superior LE -Time 09:04 -Correct Patient Yes -Correct Side, Site, Position Yes -Correct Procedure Yes -Procedure Performed Yes No -Type of Procedure Debridement -Clinical Debridement Subcutaneous -Tissue Removed Subcutaneous -Post Debridement (cm) - Length 0.2 -Post Debridement (cm) - Width 0.1 -Post Debridement (cm) - Depth 0.1 -Total Square (Post) (cm) 0.02 -Area of Debridement (cm) - Length 0.2 -Area of Debridement (cm) - Width 0.1 -Total Square (Area) (cm) 0.02 -Tunneling No -Undermining/Tunneling No -Circular Undermining No -Wound/Ulcer Outcome Not Healed Healed- Epithelialized -Ulcer Cleansing Rinsed/ Irrigated with Saline -Foul Odor after Cleansing No -Bioengineered Tissue No -Bleeding Controlled with Pressure -Treatment Response Procedure Tolerated Well -Debridement - Subq, 1st 20sq cm No #1 Left medial ankle -Time 09:04 09:11 08:27 -Correct Patient Yes Yes Yes -Correct Side, Site, Position Yes Yes Yes -Correct Procedure Yes Yes Yes -Procedure Performed Yes Yes Yes -Type of Procedure Debridement Debridement Debridement -Clinical Debridement Subcutaneous Subcutaneous Subcutaneous -Tissue Removed Subcutaneous Subcutaneous Subcutaneous -Post Debridement (cm) - Length 1.4 1.3 1.3 -Post Debridement (cm) - Width 1.2 0.9 0.9 -Post Debridement (cm) - Depth 0.1 0.1 0.1 -Total Square (Post) (cm) 1.68 1.17 1.17 -Area of Debridement (cm) - Length 1.4 1.3 1.3 -Area of Debridement (cm) - Width 1.2 0.9 0.9 -Total Square (Area) (cm) 1.68 1.17 1.17 -Tunneling No No No -Undermining/Tunneling No No No -Circular Undermining No No No -Wound/Ulcer Outcome Not Healed Not Healed Not Healed -Ulcer Cleansing Rinsed/ Rinsed/ Rinsed/ Irrigated with Irrigated with Irrigated with Saline Saline Saline -Foul Odor after Cleansing No No No -Bioengineered Tissue Yes Yes Yes -Type of Bioengineered Tissue Epifix 18mm Epifix 18mm Epifix 18mm Disc Disc Disc -Expiration Date 06/11/27 06/11/27 07/12/27 -Product Lot Number [id number] -Percent Used 100 100 100 -Bleeding Controlled with Pressure Pressure Pressure -Treatment Response Procedure Procedure Procedure Tolerated Well Tolerated Well Tolerated Well -Debridement - Subq, 1st 20sq cm No No No -Apply Skin Sub - 1st 25 sq cm - Legs 1 1 1 -Epifix 18mm Disc 3 3 3 Pain Scale: 0-10 Numeric Is Patient Pain Free? Yes Yes Yes - Nurse 3 - General Ulcer D/C NN Start: 09/10/22 08:54 Freq: Status: Active Protocol: Activity Type Activity Date Activity User E-sign Co-sign Detail Recorded Client Recorded Date Recorded By Document 09/10/22 09:17 ML [id number] 09/10/22 09:20 ML Document 09/17/22 09:27 RB [id number] 09/17/22 09:29 RB 09/10/22 09/17/22 09:17 09:27 Wound Care Center Nurse 3 #2 Left superior LE -Other Dressing epifix,adaptic -Primary Dressing Covered/Secured with Dry Gauze & Dry Gauze,Dry Roll Gauze Gauze & Roll Gauze,Secured with Tape #1 Left medial ankle -Other Dressing epifix,adaptic -Primary Dressing Covered/Secured with Dry Gauze,Dry Gauze & Roll Gauze,Secured with Tape Right -Tubular Bandage Single Layer -Size of Tubigrip Used Size E -Size E ($) 1 Left -Tubular Bandage Single Layer -Size of Tubigrip Used Size E -Size E ($) 1 -Other single layer tubigrip Treatment Response Procedure Tolerated Well Pain Scale: 0-10 Numeric Is Patient Pain Free? Yes Yes Teaching: Wound Center Compression Wraps & Stockings -Person Taught Patient -Teaching Method Discussion -Response to teaching Reinforcement needed WC - Visit Discharge Discharge Condition Stable Ambulatory Status Ambulatory Transportation Private Auto Medication Reconcilliation completed & No provided to patient/care provider Clinical Summary of Care Provided Yes Assessment/Plan Assessment/Plan (1) Non-pressure chronic ulcer of left calf with fat layer exposed: CODE(S): L97.222 - Non-pressure chronic ulcer of left calf with fat layer exposed (2) Bilateral edema of lower extremity: CODE(S): R60.0 - Localized edema (3) Venous insufficiency (chronic) (peripheral): CODE(S): I87.2 - Venous insufficiency (chronic) (peripheral) PLAN: Plan Patient seen and evaluated Ulceration to the distal aspect of the left lower extremity was debrided as noted in the clinical panel above.? Ulcerative site demonstrates no erythema, nolymphangitic streaking, no purulent drainage, no malodor, no palpable fluctuance/bogginess noted.? Proximal medial ulceration remains healed. The distal medial malleoli ulceration measures 0.9cm x 0.8 cm x 0.1 cm.? She has been approved for advanced wound care product.? Epi fix graft #5 applied to ulcerative sites and anchored with Adaptic touch and Steri-Strips with dry sterile dressing.? She was instructed to not get the site wet and only change outer dressings as needed.? Tubigrip compression stocking applied to the left lower extremity to aid in edema control. Ulceration demonstrates continued improvement in size following application of EpiFix graft. I discussed continued application of Tubigrip compression stocking and ultimately transition to knee-high compression stocking of 20 to 30 mmHg to aid in her edema control.? She is instructed to elevate the lower extremities at alltimes of rest.? I discussed with her that reduction of the edema is essential inher healing process. Due to her diminished capillary fill time over the last few months LEAS was ordered 08/13/22 along with venous studies of bilateral lower extremities. LEAS demonstrates Triphasic and Biphasic Doppler at Right ankle and Biphasic Doppler at Left ankle. Digital incidices normal. Normal PVR. Venous studies demonstratedDVT of Right lower extremity. She was started on Eliquis. Encouraged adequate protein intake and collagen supplement Gregory to aid in her healing. I discussed with her today signs and symptoms of infection to continue to observe.? She was instructed that if she notices any increasing redness about the ulcerative sites that moves up the leg, from the wounds, increased foul odorfrom the wounds purulent drainage, or if she experiences fever greater than 101 degree, or any nausea, vomiting, or chills that these are signs of a progressinginfection and she is to report to the ED.? She voices understanding of this discussion today. Dressing: EpiFix graft, Adaptic touch, Steri-Strips, DSD with Tubigrip Wash: Do not get wet Tissue growth optimization: EpiFix Offload: Tubigrip compression stocking, elevating bilateral lower extremities.? She is to ensure she does not rest the left lower extremity against the right lower extremity to prevent continued pressure during sleeping Vascular: DP and PT pulses palpable.? CFT less than 5 seconds to the digits. LEAS demonstrates no arterial disease. Edema: Tubigrip compression stocking, elevating bilateral lower extremities at all times at rest Infection: No signs of infection Pain: May take [id number] Tylenol for discomfort Host factors: Chronic venous stasis with palpable varicosities to the lower extremity and foot, edema. ? I answered all the patient's questions.? To return to the wound healing center in 1 week or call sooner if the patient has any questions or concerns. 10/01/22901 <Electronically signed by Vinay Weiss DPM> Cosigner Signature (if applicable): CC: ~ Signed [facility] Work Phone: [phone] Progress note Author Vinay Weiss [facility] September 24, 2022 8:51am Note Date/Time September 24, 2022 8:1 4am [facility] [address] [place] [id number] Progress Note - Wound Care 09/24/22813 MR#: [id number] Acct: [id number] Name: YOSEF JENNINGS Rep #:[id number] : 1940 82 From: Vinay zimmerman DPM PCP: Dr. Tracey Smith MD Status:R EG RCR Location: History of Present Illness Date of Service: 09/24/22 Chief Complaint: Left lower extremity ulceration x2 History of Wound: Patient is an 81-year-old female who presents to the wound care center with chronic ulceration x2 to the left lower extremity. She states she became very itchy on the inside of the left ankle and scratched creating 2 ulcerative wounds in April 2022. She reported to the ED soon after and was diagnosed with cellulitis and treated with oral antibiotics. She states that over the next few months the wounds however failed to progress in healing. She did fall recently and went to the [facility] ED for stitches in the right hand where she also had her wounds evaluated. ED physician notes chronic venous stasis with normal capillary fill time, however capillary fill time is diminished from previous visit in April. She has been applying bacitracin to the wounds however has not been wearing compression stockings. She continues to work and is on her feet for most of the day. She states when she comes home her legs are swollen and the ulcerative sites ache. Subjective Subjective This is an 82-year-old female seen for follow-up in the wound care center today for left lower extremity ulceration secondary to chronic venous stasis.? She hasconfirmed DVT and on Eliquis.? Currently denies calf pain or SOB. Has been changing dressings to left leg as needed. States leg is getting less painful, but does ache after debridement. She denies any constitutional symptoms.? She has no further complaints. Objective Data Objective Data Vital Signs: Vital Signs Temp Pulse Resp BP 97.2 F L 101 H 17 155/95 H 09/17/22 08:29 09/17/22 08:29 09/10/22 08:55 09/17/22 08:29 Physical Exam Const alert, oriented x3 and no apparent distress General Appearance: cooperative HEENT normocephalic Eyes General Eye: normal appearance of both eyes Neck General: normal visual inspection Lymph Lymphatic: no lymphadenopathy noted and no lymphedema noted Resp normal respiratory effort Cardio regular rate and regular rhythm Extremity normal capillary refill, no joint enlargement, no calf tenderness and no pedal edema Extremity Narrative: Left lower extremity: DP and PT pulses are palpable.? CFT less than 5 seconds tothe digits.? Normal temperature gradient.? Hair growth absent to the digits/foot.? There is varicosities noted to the left lower extremity, periankle, and dorsal foot.? +3 pitting edema - improved.? Ulceration noted to the medial ankle overlying the region of the great saphenous vein.? There is hemosiderin deposition to the medial aspect of the leg consistent with venous stasis dermatitis. Right lower extremity: DP and PT pulses are palpable.? CFT less than 5 seconds to the digits.? Normal temperature gradient.? Hair growth is absent to the digits/foot.? There is varicosities noted to the right lower extremity, periankle, and dorsal foot.? +1 pitting edema noted Skin no rashes or lesions noted, skin turgor normal and no jaundice Wound Narrative: Left lower extremity ulceration x2.? Proximal medial ulceration is healed.? No signs of infection.? Distal medial ulceration is noted overlying the region of the great saphenous vein with mixed fibrogranular base.? No signs of infection.?There is a little localized rubor noted about the ulcerative sites however thereis no increased temperature noted.? No purulent drainage, no malodor, no palpable fluctuance/bogginess noted. Neuro moves all extremities Debridement Note Debridement Note Wound debrided: Left lower extremity Laterality: Left Wound Grade/Stage: Blue stage I Type of Debridement: Excisional debridement Anesthesia Used: 5% Lidocaine Gel Depth: Down to and including healthy tissue and in the subcutaneous layer Percentage of wound debrided: 100 Instrument Used: 5mm curette Tissue Removed: Fibrous, devitalized subcutaneous, biofilm, slough Severity: Fat Layer Exposed Amount of bleeding with debridement: Mild Bleeding Controlled with: Compression and gauze Patient tolerated procedure: Patient tolerated procedure well Post-Debridement Measurements and Additional Note: Post-Debridement Measurements/Treatment - Nurse 1 - General Ulcer Assessment Start: 09/10/22 08:54 Freq: Status: Active Protocol: WC.EDWIN Activity Type Activity Date Activity User E-sign Co-sign Detail Recorded Client Recorded Date Recorded By Document 09/10/22 08:55 ML [id number] 09/10/22 09:01 ML Document 09/17/22 08:29 AK [id number] 09/17/22 08:35 AK 09/10/22 09/17/22 08:55 08:29 - Today's Visit Information Type of service Follow-up Visit 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 (Physician/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 ) ) Arrival Mode Ambulatory Ambulatory Transfer Assistance None Patient Identification Verified (Name & Yes Yes ) Patient Requires Transmission-Based No No Precautions Safety Precautions NA NA Vital Signs Temperature (97.8 F-99.1 F) 96.0 F L 97.2 F L Temperature Source Temporal Temporal Pulse Rate (60-100) 92 101 H Pulse Location Monitor Monitor Respiratory Rate (12-18) 17 Respiratory rate source Observation Blood Pressure (90/60-120/80) 160/91 H 155/95 H Blood Pressure Mean (mm Hg) 114 115 Source Monitor Monitor Position Sitting Blood Pressure Location Right Arm History Since Last Visit- (Skip if this is Patient's initial visit) Have you changed medications since your No No last visit? Any new allergies or adverse reactions No No Had a fall/change in ADL's that may No No increase risk of falls Signs or symptoms of abuse and/or No No neglect since last visit Have you been in the hospital since your No No last visit? Has dressing in place as prescribed Yes Yes Has compression in place as prescribed N/A Yes Has offloadiing in place as prescribed N/A N/A Experienced any changes in pain level or No No management Left Footwear Regular Shoe Regular Shoe Right Footwear Regular Shoe Regular Shoe Pain Scale: 0-10 Numeric Is Patient Pain Free? Yes Yes WC - Nurse 1 - General Ulcer Measurement Start: 09/10/22 08:54 Freq: Status: Active Protocol: Activity Type Activity Date Activity User E-sign Co-sign Detail Recorded Client Recorded Date Recorded By Document 09/10/22 08:55 ML [id number] 09/10/22 09:01 ML Document 09/17/22 08:29 AK [id number] 09/17/22 08:35 AK 09/10/22 09/17/22 08:55 08:29 Wound Center Nurse 1 #2 Left superior LE -Combined with other wound No -Current Size (cm) - Length 0.4 0.1 -Current Size (cm) - Width 3 1 -Current Size (cm) - Depth 0.1 0.1 -Total Square Cm 1.2 0.1 -Photo Taken Yes -Tunneling No -Undermining/Tunneling No -Circular Undermining No -Change in Wound Grade/Stage No -Exudate Amt Small None Present -Exudate Type Serosanguineous Serosanguineous -Wound Margin Distinct, Distinct, Outline Outline Attached Attached -Granulation Amt None Present (0 None Present (0 %) %) -Granulation Quality N/A -Slough/Fibrin No No -Necrosis Amt None Present (0 None Present (0 %) %) -Necrotic Tissue Type Adherent Slough -Structure Exposed N/A -Texture (Cristina-wound Skin Appearance) No Abnormality, Assessed -Moisture (Cristina-wound Skin Appearance) Assessed No Abnormality, Assessed -Color (Cristina-wound Skin Appearance) Assessed No Abnormality, Assessed -Temperature (Cristina-wound Skin No Abnormality Appearance) (Pt Warm) -Tenderness on Palpation (Cristina-wound No Yes Skin Appearance) -Ulcer Cleansing Rinsed/ Rinsed/ Irrigated with Irrigated with Saline Saline -Foul Odor after Cleansing No No -Anesthetic Used 5% Lidocaine 5% Lidocaine Gel Gel #1 Left medial ankle -Combined with other wound No -Current Size (cm) - Length 1.5 1.4 -Current Size (cm) - Width 1.1 1 -Current Size (cm) - Depth 0.1 0.1 -Total Square Cm 1.65 1.4 -Photo Taken Yes -Tunneling No -Undermining/Tunneling No -Circular Undermining No -Change in Wound Grade/Stage No -Exudate Amt Small Medium -Exudate Type Serosanguineous Serosanguineous -Wound Margin Distinct, Outline Attached -Granulation Amt Small (1-33%) None Present (0 %) -Granulation Quality Mimbres,Red -Slough/Fibrin No No -Necrosis Amt None Present (0 None Present (0 %) %) -Structure Exposed N/A -Texture (Cristina-wound Skin Appearance) Assessed No Abnormality, Assessed -Moisture (Cristina-wound Skin Appearance) Assessed No Abnormality, Assessed -Color (Cristina-wound Skin Appearance) Assessed No Abnormality, Assessed -Temperature (Cristina-wound Skin No Abnormality No Abnormality Appearance) (Pt Warm) (Pt Warm) -Tenderness on Palpation (Cristina-wound No No Skin Appearance) -Ulcer Cleansing Rinsed/ Rinsed/ Irrigated with Irrigated with Saline Saline -Foul Odor after Cleansing No No -Anesthetic Used 5% Lidocaine 5% Lidocaine Gel Gel Lower Limb Edema Present No Left Calf (cm) 39 Left Ankle (cm) 26 WC - Nurse 2 - General Ulcer CM Notes Start: 09/10/22 08:54 Freq: Status: Active Protocol: Activity Type Activity Date Activity User E-sign Co-sign Detail Recorded Client Recorded Date Recorded By Document 09/10/22 11:26 PL [id number] 09/10/22 11:29 PL Document 09/17/22 11:34 PL [id number] 09/17/22 11:36 PL 09/10/22 09/17/22 11:26 11:34 Wound Center Nurse 2 #2 Left superior LE -Time 09:04 -Correct Patient Yes -Correct Side, Site, Position Yes -Correct Procedure Yes -Procedure Performed Yes No -Type of Procedure Debridement -Clinical Debridement Subcutaneous -Tissue Removed Subcutaneous -Post Debridement (cm) - Length 0.2 -Post Debridement (cm) - Width 0.1 -Post Debridement (cm) - Depth 0.1 -Total Square (Post) (cm) 0.02 -Area of Debridement (cm) - Length 0.2 -Area of Debridement (cm) - Width 0.1 -Total Square (Area) (cm) 0.02 -Tunneling No -Undermining/Tunneling No -Circular Undermining No -Wound/Ulcer Outcome Not Healed Healed- Epithelialized -Ulcer Cleansing Rinsed/ Irrigated with Saline -Foul Odor after Cleansing No -Bioengineered Tissue No -Bleeding Controlled with Pressure -Treatment Response Procedure Tolerated Well -Debridement - Subq, 1st 20sq cm No #1 Left medial ankle -Time 09:04 09:11 -Correct Patient Yes Yes -Correct Side, Site, Position Yes Yes -Correct Procedure Yes Yes -Procedure Performed Yes Yes -Type of Procedure Debridement Debridement -Clinical Debridement Subcutaneous Subcutaneous -Tissue Removed Subcutaneous Subcutaneous -Post Debridement (cm) - Length 1.4 1.3 -Post Debridement (cm) - Width 1.2 0.9 -Post Debridement (cm) - Depth 0.1 0.1 -Total Square (Post) (cm) 1.68 1.17 -Area of Debridement (cm) - Length 1.4 1.3 -Area of Debridement (cm) - Width 1.2 0.9 -Total Square (Area) (cm) 1.68 1.17 -Tunneling No No -Undermining/Tunneling No No -Circular Undermining No No -Wound/Ulcer Outcome Not Healed Not Healed -Ulcer Cleansing Rinsed/ Rinsed/ Irrigated with Irrigated with Saline Saline -Foul Odor after Cleansing No No -Bioengineered Tissue Yes Yes -Type of Bioengineered Tissue Epifix 18mm Epifix 18mm Disc Disc -Expiration Date 06/11/27 06/11/27 -Product Lot Number [id number] -Percent Used 100 100 -Bleeding Controlled with Pressure Pressure -Treatment Response Procedure Procedure Tolerated Well Tolerated Well -Debridement - Subq, 1st 20sq cm No No -Apply Skin Sub - 1st 25 sq cm - Legs 1 1 -Epifix 18mm Disc 3 3 Pain Scale: 0-10 Numeric Is Patient Pain Free? Yes Yes WC - Nurse 3 - General Ulcer D/C NN Start: 09/10/22 08:54 Freq: Status: Active Protocol: Activity Type Activity Date Activity User E-sign Co-sign Detail Recorded Client Recorded Date Recorded By Document 09/10/22 09:17 ML [id number] 09/10/22 09:20 ML Document 09/17/22 09:27 RB [id number] 09/17/22 09:29 RB 09/10/22 09/17/22 09:17 09:27 Wound Care Center Nurse 3 #2 Left superior LE -Other Dressing epifix,adaptic -Primary Dressing Covered/Secured with Dry Gauze & Dry Gauze,Dry Roll Gauze Gauze & Roll Gauze,Secured with Tape #1 Left medial ankle -Other Dressing epifix,adaptic -Primary Dressing Covered/Secured with Dry Gauze,Dry Gauze & Roll Gauze,Secured with Tape Right -Tubular Bandage Single Layer -Size of Tubigrip Used Size E -Size E ($) 1 Left -Tubular Bandage Single Layer -Size of Tubigrip Used Size E -Size E ($) 1 -Other single layer tubigrip Treatment Response Procedure Tolerated Well Pain Scale: 0-10 Numeric Is Patient Pain Free? Yes Yes Teaching: Wound Center Compression Wraps & Stockings -Person Taught Patient -Teaching Method Discussion -Response to teaching Reinforcement needed WC - Visit Discharge Discharge Condition Stable Ambulatory Status Ambulatory Transportation Private Auto Medication Reconcilliation completed & No provided to patient/care provider Clinical Summary of Care Provided Yes Assessment/Plan Assessment/Plan (1) Non-pressure chronic ulcer of left calf with fat layer exposed: CODE(S): L97.222 - Non-pressure chronic ulcer of left calf with fat layer exposed (2) Bilateral edema of lower extremity: CODE(S): R60.0 - Localized edema (3) Venous insufficiency (chronic) (peripheral): CODE(S): I87.2 - Venous insufficiency (chronic) (peripheral) PLAN: Plan Patient seen and evaluated Ulceration to the distal aspect of the left lower extremity was debrided as noted in the clinical panel above.? Ulcerative site demonstrates no erythema, nolymphangitic streaking, no purulent drainage, no malodor, no palpable fluctuance/bogginess noted.? Proximal medial ulceration remains healed. The distal medial malleoli are ulceration measures 1.3 cm x 0.9 cm x 0.1 cm.? She has been approved for advanced wound care product.? Epi fix graft #4 applied to ulcerative sites and anchored with Adaptic touch and Steri-Strips with dry sterile dressing.? She was instructed to not get the site wet and only change outer dressings as needed.? Tubigrip compression stocking applied to the left lower extremity to aid in edema control. Ulcerations demonstrate continued improvement in size following application of EpiFix graft. I discussed continued application of Tubigrip compression stocking and ultimately transition to knee-high compression stocking of 20 to 30 mmHg to aid in her edema control.? She is instructed to elevate the lower extremities at alltimes of rest.? I discussed with her that reduction of the edema is essential inher healing process. Due to her diminished capillary fill time over the last few months LEAS was ordered 08/13/22 along with venous studies of bilateral lower extremities. LEAS demonstrates Triphasic and Biphasic Doppler at Right ankle and Biphasic Doppler at Left ankle. Digital incidices normal. Normal PVR. Venous studies demonstratedDVT of Right lower extremity. She was started on Eliquis. Encouraged adequate protein intake and collagen supplement Gregory to aid in her healing. I discussed with her today signs and symptoms of infection to continue to observe.? She was instructed that if she notices any increasing redness about the ulcerative sites that moves up the leg, from the wounds, increased foul odorfrom the wounds purulent drainage, or if she experiences fever greater than 101 degree, or any nausea, vomiting, or chills that these are signs of a progressinginfection and she is to report to the ED.? She voices understanding of this discussion today. Dressing: EpiFix graft, Adaptic touch, Steri-Strips, DSD with Tubigrip Wash: Do not get wet Tissue growth optimization: EpiFix Offload: Tubigrip compression stocking, elevating bilateral lower extremities.? She is to ensure she does not rest the left lower extremity against the right lower extremity to prevent continued pressure during sleeping Vascular: DP and PT pulses palpable.? CFT less than 5 seconds to the digits. LEAS demonstrates no arterial disease. Edema: Tubigrip compression stocking, elevating bilateral lower extremities at all times at rest Infection: No signs of infection Pain: May take [id number] Tylenol for discomfort Host factors: Chronic venous stasis with palpable varicosities to the lower extremity and foot, edema. ? I answered all the patient's questions.? To return to the wound healing center in 1 week or call sooner if the patient has any questions or concerns. 09/24/22 0851 <Electronically signed by Vinay Weiss DPM> Cosigner Signature (if applicable): CC: ~ Signed [facility] Work Phone: [phone] 126-256803-09-2023 Progress note Author Vinay Weiss [facility] September 17, 2022 10:26am Note Date/Time September 17, 2022 9:26 am [facility] [address] [place] [address] Progress Note - Wound Care 09/17/22921 MR#: [id number] Acct: [id number] Name: YOSEF JENNINGS Rep #:[id number] : 1940 82 From: Vinay zimmerman DPM PCP: Dr. Tracey Smith MD Status:R EG RCR Location: History of Present Illness Date of Service: 09/17/22 Chief Complaint: Left lower extremity ulceration x2 History of Wound: Patient is an 81-year-old female who presents to the wound care center with chronic ulceration x2 to the left lower extremity. She states she became very itchy on the inside of the left ankle and scratched creating 2 ulcerative wounds in April 2022. She reported to the ED soon after and was diagnosed with cellulitis and treated with oral antibiotics. She states that over the next few months the wounds however failed to progress in healing. She did fall recently and went to the [facility] ED for stitches in the right hand where she also had her wounds evaluated. ED physician notes chronic venous stasis with normal capillary fill time, however capillary fill time is diminished from previous visit in April. She has been applying bacitracin to the wounds however has not been wearing compression stockings. She continues to work and is on her feet for most of the day. She states when she comes home her legs are swollen and the ulcerative sites ache. Subjective Subjective This is an 82-year-old female seen for follow-up in the wound care center today for left lower extremity ulceration secondary to chronic venous stasis.? She hasconfirmed DVT and on Eliquis.? Currently denies calf pain or SOB. Has been changing dressings to left leg as needed. States it is getting less painful. Shedenies any constitutional symptoms.? She has no further complaints. Objective Data Objective Data Vital Signs: Vital Signs Temp Pulse Resp BP 97.2 F L 101 H 17 155/95 H 09/17/22 08:29 09/17/22 08:29 09/10/22 08:55 09/17/22 08:29 Physical Exam Const alert, oriented x3 and no apparent distress General Appearance: cooperative HEENT normocephalic Eyes General Eye: normal appearance of both eyes Neck General: normal visual inspection Lymph Lymphatic: no lymphadenopathy noted and no lymphedema noted Resp normal respiratory effort Cardio regular rate and regular rhythm Extremity normal capillary refill, no joint enlargement, no calf tenderness and no pedal edema Extremity Narrative: Left lower extremity: DP and PT pulses are palpable.? CFT less than 5 seconds tothe digits.? Normal temperature gradient.? Hair growth absent to the digits/foot.? There is varicosities noted to the left lower extremity, periankle, and dorsal foot.? +3 pitting edema - improved.? Ulceration noted to the medial ankle overlying the region of the great saphenous vein.? There is hemosiderin deposition to the medial aspect of the leg consistent with venous stasis dermatitis. Right lower extremity: DP and PT pulses are palpable.? CFT less than 5 seconds to the digits.? Normal temperature gradient.? Hair growth is absent to the digits/foot.? There is varicosities noted to the right lower extremity, periankle, and dorsal foot.? +1 pitting edema noted Skin no rashes or lesions noted, skin turgor normal and no jaundice Wound Narrative: Left lower extremity ulceration x2.? Proximal medial ulceration is healed.? No signs of infection.? Distal medial ulceration is noted overlying the region of the great saphenous vein with mixed fibrogranular base.? No signs of infection.?There is a little localized rubor noted about the ulcerative sites however thereis no increased temperature noted.? No purulent drainage, no malodor, no palpable fluctuance/bogginess noted. Neuro moves all extremities Debridement Note Debridement Note Wound debrided: Left lower extremity Laterality: Left Wound Grade/Stage: Blue stage I Type of Debridement: Excisional debridement Anesthesia Used: 5% Lidocaine Gel Depth: Down to and including healthy tissue and in the subcutaneous layer Percentage of wound debrided: 100 Instrument Used: 5mm curette Tissue Removed: Fibrous, devitalized subcutaneous, biofilm, slough Severity: Fat Layer Exposed Amount of bleeding with debridement: Mild Bleeding Controlled with: Compression and gauze Patient tolerated procedure: Patient tolerated procedure well Post-Debridement Measurements and Additional Note: Post-Debridement Measurements/Treatment - Nurse 1 - General Ulcer Assessment Start: 09/10/22 08:54 Freq: Status: Active Protocol: GERALD Activity Type Activity Date Activity User E-sign Co-sign Detail Recorded Client Recorded Date Recorded By Document 09/10/22 08:55 ML [id number] 09/10/22 09:01 ML Document 09/17/22 08:29 AK [id number] 09/17/22 08:35 AK 09/10/22 09/17/22 08:55 08:29 - Today's Visit Information Type of service Follow-up Visit 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 (Physician/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 ) ) Arrival Mode Ambulatory Ambulatory Transfer Assistance None Patient Identification Verified (Name & Yes Yes ) Patient Requires Transmission-Based No No Precautions Safety Precautions NA NA Vital Signs Temperature (97.8 F-99.1 F) 96.0 F L 97.2 F L Temperature Source Temporal Temporal Pulse Rate (60-100) 92 101 H Pulse Location Monitor Monitor Respiratory Rate (12-18) 17 Respiratory rate source Observation Blood Pressure (90/60-120/80) 160/91 H 155/95 H Blood Pressure Mean (mm Hg) 114 115 Source Monitor Monitor Position Sitting Blood Pressure Location Right Arm History Since Last Visit- (Skip if this is Patient's initial visit) Have you changed medications since your No No last visit? Any new allergies or adverse reactions No No Had a fall/change in ADL's that may No No increase risk of falls Signs or symptoms of abuse and/or No No neglect since last visit Have you been in the hospital since your No No last visit? Has dressing in place as prescribed Yes Yes Has compression in place as prescribed N/A Yes Has offloadiing in place as prescribed N/A N/A Experienced any changes in pain level or No No management Left Footwear Regular Shoe Regular Shoe Right Footwear Regular Shoe Regular Shoe Pain Scale: 0-10 Numeric Is Patient Pain Free? Yes Yes WC - Nurse 1 - General Ulcer Measurement Start: 09/10/22 08:54 Freq: Status: Active Protocol: Activity Type Activity Date Activity User E-sign Co-sign Detail Recorded Client Recorded Date Recorded By Document 09/10/22 08:55 ML [id number] 09/10/22 09:01 ML Document 09/17/22 08:29 AK [id number] 09/17/22 08:35 AK 09/10/22 09/17/22 08:55 08:29 Wound Center Nurse 1 #2 Left superior LE -Combined with other wound No -Current Size (cm) - Length 0.4 0.1 -Current Size (cm) - Width 3 1 -Current Size (cm) - Depth 0.1 0.1 -Total Square Cm 1.2 0.1 -Photo Taken Yes -Tunneling No -Undermining/Tunneling No -Circular Undermining No -Change in Wound Grade/Stage No -Exudate Amt Small None Present -Exudate Type Serosanguineous Serosanguineous -Wound Margin Distinct, Distinct, Outline Outline Attached Attached -Granulation Amt None Present (0 None Present (0 %) %) -Granulation Quality N/A -Slough/Fibrin No No -Necrosis Amt None Present (0 None Present (0 %) %) -Necrotic Tissue Type Adherent Slough -Structure Exposed N/A -Texture (Cristina-wound Skin Appearance) No Abnormality, Assessed -Moisture (Cristina-wound Skin Appearance) Assessed No Abnormality, Assessed -Color (Cristina-wound Skin Appearance) Assessed No Abnormality, Assessed -Temperature (Cristina-wound Skin No Abnormality Appearance) (Pt Warm) -Tenderness on Palpation (Cristina-wound No Yes Skin Appearance) -Ulcer Cleansing Rinsed/ Rinsed/ Irrigated with Irrigated with Saline Saline -Foul Odor after Cleansing No No -Anesthetic Used 5% Lidocaine 5% Lidocaine Gel Gel #1 Left medial ankle -Combined with other wound No -Current Size (cm) - Length 1.5 1.4 -Current Size (cm) - Width 1.1 1 -Current Size (cm) - Depth 0.1 0.1 -Total Square Cm 1.65 1.4 -Photo Taken Yes -Tunneling No -Undermining/Tunneling No -Circular Undermining No -Change in Wound Grade/Stage No -Exudate Amt Small Medium -Exudate Type Serosanguineous Serosanguineous -Wound Margin Distinct, Outline Attached -Granulation Amt Small (1-33%) None Present (0 %) -Granulation Quality Mimbres,Red -Slough/Fibrin No No -Necrosis Amt None Present (0 None Present (0 %) %) -Structure Exposed N/A -Texture (Cristina-wound Skin Appearance) Assessed No Abnormality, Assessed -Moisture (Cristina-wound Skin Appearance) Assessed No Abnormality, Assessed -Color (Cristina-wound Skin Appearance) Assessed No Abnormality, Assessed -Temperature (Cristina-wound Skin No Abnormality No Abnormality Appearance) (Pt Warm) (Pt Warm) -Tenderness on Palpation (Cristina-wound No No Skin Appearance) -Ulcer Cleansing Rinsed/ Rinsed/ Irrigated with Irrigated with Saline Saline -Foul Odor after Cleansing No No -Anesthetic Used 5% Lidocaine 5% Lidocaine Gel Gel Lower Limb Edema Present No Left Calf (cm) 39 Left Ankle (cm) 26 WC - Nurse 2 - General Ulcer CM Notes Start: 09/10/22 08:54 Freq: Status: Active Protocol: Activity Type Activity Date Activity User E-sign Co-sign Detail Recorded Client Recorded Date Recorded By Document 09/10/22 11:26 PL [id number] 09/10/22 11:29 PL 09/10/22 11:26 Wound Center Nurse 2 #2 Left superior LE -Time 09:04 -Correct Patient Yes -Correct Side, Site, Position Yes -Correct Procedure Yes -Procedure Performed Yes -Type of Procedure Debridement -Clinical Debridement Subcutaneous -Tissue Removed Subcutaneous -Post Debridement (cm) - Length 0.2 -Post Debridement (cm) - Width 0.1 -Post Debridement (cm) - Depth 0.1 -Total Square (Post) (cm) 0.02 -Area of Debridement (cm) - Length 0.2 -Area of Debridement (cm) - Width 0.1 -Total Square (Area) (cm) 0.02 -Tunneling No -Undermining/Tunneling No -Circular Undermining No -Wound/Ulcer Outcome Not Healed -Ulcer Cleansing Rinsed/ Irrigated with Saline -Foul Odor after Cleansing No -Bioengineered Tissue No -Bleeding Controlled with Pressure -Treatment Response Procedure Tolerated Well -Debridement - Subq, 1st 20sq cm No #1 Left medial ankle -Time 09:04 -Correct Patient Yes -Correct Side, Site, Position Yes -Correct Procedure Yes -Procedure Performed Yes -Type of Procedure Debridement -Clinical Debridement Subcutaneous -Tissue Removed Subcutaneous -Post Debridement (cm) - Length 1.4 -Post Debridement (cm) - Width 1.2 -Post Debridement (cm) - Depth 0.1 -Total Square (Post) (cm) 1.68 -Area of Debridement (cm) - Length 1.4 -Area of Debridement (cm) - Width 1.2 -Total Square (Area) (cm) 1.68 -Tunneling No -Undermining/Tunneling No -Circular Undermining No -Wound/Ulcer Outcome Not Healed -Ulcer Cleansing Rinsed/ Irrigated with Saline -Foul Odor after Cleansing No -Bioengineered Tissue Yes -Type of Bioengineered Tissue Epifix 18mm Disc -Expiration Date 06/11/27 -Product Lot Number [id number] -Percent Used 100 -Bleeding Controlled with Pressure -Treatment Response Procedure Tolerated Well -Debridement - Subq, 1st 20sq cm No -Apply Skin Sub - 1st 25 sq cm - Legs 1 -Epifix 18mm Disc 3 Pain Scale: 0-10 Numeric Is Patient Pain Free? Yes WC - Nurse 3 - General Ulcer D/C NN Start: 09/10/22 08:54 Freq: Status: Active Protocol: Activity Type Activity Date Activity User E-sign Co-sign Detail Recorded Client Recorded Date Recorded By Document 09/10/22 09:17 ML [id number] 09/10/22 09:20 ML 09/10/22 09:17 Wound Care Center Nurse 3 #2 Left superior LE -Other Dressing epifix,adaptic -Primary Dressing Covered/Secured with Dry Gauze & Roll Gauze #1 Left medial ankle -Other Dressing epifix,adaptic Right -Tubular Bandage Single Layer -Size of Tubigrip Used Size E -Size E ($) 1 Left -Tubular Bandage Single Layer -Size of Tubigrip Used Size E -Size E ($) 1 Pain Scale: 0-10 Numeric Is Patient Pain Free? Yes Assessment/Plan Assessment/Plan (1) Non-pressure chronic ulcer of left calf with fat layer exposed: CODE(S): L97.222 - Non-pressure chronic ulcer of left calf with fat layer exposed (2) Bilateral edema of lower extremity: CODE(S): R60.0 - Localized edema (3) Venous insufficiency (chronic) (peripheral): CODE(S): I87.2 - Venous insufficiency (chronic) (peripheral) PLAN: Plan Patient seen and evaluated Ulceration to the distal aspect of the left lower extremity was debrided as noted in the clinical panel above.? Ulcerative site demonstrates no erythema, nolymphangitic streaking, no purulent drainage, no malodor, no palpable fluctuance/bogginess noted.? Proximal medial ulceration healed today. The distalmedial malleoli are ulceration measures 1.2 cm x 0.9 cm x 0.1 cm.? She has been approved for advanced wound care product.? Epi fix graft #3 applied to ulcerative sites and anchored with Adaptic touch and Steri-Strips with dry sterile dressing.? She was instructed to not get the site wet and only change outer dressings as needed.? Tubigrip compression stocking applied to the left lower extremity to aid in edema control. Ulcerations demonstrate continued improvement in size following application of EpiFix graft. I discussed continued application of Tubigrip compression stocking and ultimately transition to knee-high compression stocking of 20 to 30 mmHg to aid in her edema control.? She is instructed to elevate the lower extremities at alltimes of rest.? I discussed with her that reduction of the edema is essential inher healing process. Due to her diminished capillary fill time over the last few months LEAS was ordered 08/13/22 along with venous studies of bilateral lower extremities. LEAS demonstrates Triphasic and Biphasic Doppler at Right ankle and Biphasic Doppler at Left ankle. Digital incidices normal. Normal PVR. Venous studies demonstratedDVT of Right lower extremity. She was started on Eliquis. Encouraged adequate protein intake and collagen supplement Gregory to aid in her healing. I discussed with her today signs and symptoms of infection to continue to observe.? She was instructed that if she notices any increasing redness about the ulcerative sites that moves up the leg, from the wounds, increased foul odorfrom the wounds purulent drainage, or if she experiences fever greater than 101 degree, or any nausea, vomiting, or chills that these are signs of a progressinginfection and she is to report to the ED.? She voices understanding of this discussion today. Dressing: EpiFix graft, Adaptic touch, Steri-Strips, DSD with Tubigrip Wash: Do not get wet Tissue growth optimization: EpiFix Offload: Tubigrip compression stocking, elevating bilateral lower extremities.? She is to ensure she does not rest the left lower extremity against the right lower extremity to prevent continued pressure during sleeping Vascular: DP and PT pulses palpable.? CFT less than 5 seconds to the digits. LEAS demonstrates no arterial disease. Edema: Tubigrip compression stocking, elevating bilateral lower extremities at all times at rest Infection: No signs of infection Pain: May take [id number] Tylenol for discomfort Host factors: Chronic venous stasis with palpable varicosities to the lower extremity and foot, edema. ? I answered all the patient's questions.? To return to the wound healing center in 1 week or call sooner if the patient has any questions or concerns. 09/17/22 1026 <Electronically signed by Vinay Weiss DPM> Cosigner Signature (if applicable): CC: ~ Signed [facility] Work Phone: 1(772) 313-102603-02-2023 Progress note Author Vinay Weiss [facility] September 10, 2022 9:20am Note Date/Time September 10, 2022 8:59 am [facility] [address] [place] [address] Progress Note - Wound Care 09/10/22 0856 MR#: [id number] Acct: [id number] Name: YOSEF JENNINGS Rep #:[id number] : 1940 82 From: Vinay zimmerman DPM PCP: Dr. Tracey Smith MD Status:R EG RCR Location: History of Present Illness Date of Service: 09/10/22 Chief Complaint: Left lower extremity ulceration x2 History of Wound: Patient is an 81-year-old female who presents to the wound care center with chronic ulceration x2 to the left lower extremity. She states she became very itchy on the inside of the left ankle and scratched creating 2 ulcerative wounds in April 2022. She reported to the ED soon after and was diagnosed with cellulitis and treated with oral antibiotics. She states that over the next few months the wounds however failed to progress in healing. She did fall recently and went to the [facility] ED for stitches in the right hand where she also had her wounds evaluated. ED physician notes chronic venous stasis with normal capillary fill time, however capillary fill time is diminished from previous visit in April. She has been applying bacitracin to the wounds however has not been wearing compression stockings. She continues to work and is on her feet for most of the day. She states when she comes home her legs are swollen and the ulcerative sites ache. Subjective Subjective This is an 82-year-old female seen for follow-up in the wound care center today for left lower extremity ulceration secondary to chronic venous stasis.? She hasconfirmed DVT and on Eliquis.? Currently denies calf pain. Has been changing dressings to left leg daily. She denies any constitutional symptoms.? She has nofurther complaints. Objective Data Objective Data Vital Signs: Vital Signs Temp Pulse Resp BP 95.5 F L 102 H 18 152/90 H 09/09/22 00:08 09/09/22 00:08 09/09/22 00:08 09/09/22 00:08 Physical Exam Const alert, oriented x3 and no apparent distress General Appearance: cooperative HEENT normocephalic Eyes General Eye: normal appearance of both eyes Neck General: normal visual inspection Lymph Lymphatic: no lymphadenopathy noted and no lymphedema noted Resp normal respiratory effort Cardio regular rate and regular rhythm Extremity normal capillary refill, no joint enlargement, no calf tenderness and no pedal edema Extremity Narrative: Left lower extremity: DP and PT pulses are palpable.? CFT less than 5 seconds tothe digits.? Normal temperature gradient.? Hair growth absent to the digits/foot.? There is varicosities noted to the left lower extremity, periankle, and dorsal foot.? +3 pitting edema - improved.? Ulceration noted to the medial ankle overlying the region of the great saphenous vein.? There is hemosiderin deposition to the medial aspect of the leg consistent with venous stasis dermatitis. Right lower extremity: DP and PT pulses are palpable.? CFT less than 5 seconds to the digits.? Normal temperature gradient.? Hair growth is absent to the digits/foot.? There is varicosities noted to the right lower extremity, periankle, and dorsal foot.? +1 pitting edema noted Skin no rashes or lesions noted, skin turgor normal and no jaundice Wound Narrative: Left lower extremity ulceration x2.? Proximal medial ulceration is noted with healthy granular base.? No signs of infection.? Distal medial ulceration is noted overlying the region of the great saphenous vein with mixed fibrogranular base.? No signs of infection.? There is a little localized rubor noted about theulcerative sites however there is no increased temperature noted.? No purulent drainage, no malodor, no palpable fluctuance/bogginess noted. Neuro moves all extremities Debridement Note Debridement Note Wound debrided: Left lower extremity x2 Laterality: Left Wound Grade/Stage: Blue stage I Type of Debridement: Excisional debridement Anesthesia Used: 5% Lidocaine Gel Depth: Down to and including healthy tissue and in the subcutaneous layer Percentage of wound debrided: 100 Instrument Used: 5mm curette Tissue Removed: Fibrous, devitalized subcutaneous, biofilm, slough Severity: Fat Layer Exposed Amount of bleeding with debridement: Mild Bleeding Controlled with: Compression and gauze Patient tolerated procedure: Patient tolerated procedure well Assessment/Plan Assessment/Plan (1) Non-pressure chronic ulcer of left calf with fat layer exposed: CODE(S): L97.222 - Non-pressure chronic ulcer of left calf with fat layer exposed (2) Bilateral edema of lower extremity: CODE(S): R60.0 - Localized edema (3) Venous insufficiency (chronic) (peripheral): CODE(S): I87.2 - Venous insufficiency (chronic) (peripheral) PLAN: Plan Patient seen and evaluated Ulceration to the distal aspect of the left lower extremity x2 was debrided as noted in the clinical panel above.? Ulcerative sites demonstrates no erythema, no lymphangitic streaking, no purulent drainage, no malodor, no palpable fluctuance/bogginess noted.? Proximal medial ulceration measures 0.2 cm x 0.1 cmx 0.1 cm in the distal medial malleoli are ulceration measures 1.3 cm x 1.2 cm x0.1 cm.? She has been approved for advanced wound care product.? Epi fix graft #2 applied to ulcerative sites and anchored with Adaptic touch and Steri-Strips with dry sterile dressing.? She was instructed to not get the site wet and only change outer dressings as needed.? Tubigrip compression stocking applied to the left lower extremity to aid in edema control. Ulcerations demonstrate improvement in size following application of EpiFix graft. I discussed continued application of Tubigrip compression stocking and ultimately transition to knee-high compression stocking of 20 to 30 mmHg to aid in her edema control.? She is instructed to elevate the lower extremities at alltimes of rest.? I discussed with her that reduction of the edema is essential inher healing process. Due to her diminished capillary fill time over the last few months LEAS was ordered 08/13/22 along with venous studies of bilateral lower extremities. LEAS demonstrates Triphasic and Biphasic Doppler at Right ankle and Biphasic Doppler at Left ankle. Digital incidices normal. Normal PVR. Venous studies demonstratedDVT of Right lower extremity. She was started on Eliquis. Encouraged adequate protein intake and collagen supplement Gregory to aid in her healing. I discussed with her today signs and symptoms of infection to continue to observe.? She was instructed that if she notices any increasing redness about the ulcerative sites that moves up the leg, from the wounds, increased foul odorfrom the wounds purulent drainage, or if she experiences fever greater than 101 degree, or any nausea, vomiting, or chills that these are signs of a progressinginfection and she is to report to the ED.? She voices understanding of this discussion today. Dressing: EpiFix graft, Adaptic touch, Steri-Strips, DSD with Tubigrip Wash: Do not get wet Tissue growth optimization: EpiFix Offload: Tubigrip compression stocking, elevating bilateral lower extremities.? She is to ensure she does not rest the left lower extremity against the right lower extremity to prevent continued pressure during sleeping Vascular: DP and PT pulses palpable.? CFT less than 5 seconds to the digits. LEAS demonstrates no arterial disease. Edema: Tubigrip compression stocking, elevating bilateral lower extremities at all times at rest Infection: No signs of infection Pain: May take [id number] Tylenol for discomfort Host factors: Chronic venous stasis with palpable varicosities to the lower extremity and foot, edema. ? I answered all the patient's questions.? To return to the wound healing center in 1 week or call sooner if the patient has any questions or concerns. 09/10/22919 <Electronically signed by Vinay Weiss DPM> Cosigner Signature (if applicable): CC: ~ Signed [facility] Work Phone: 1(343) 864-858502-23-2023 Progress note Author Vinay Weiss [facility] September 03, 2022 9:59pm Note Date/Time September 03, 2022 8:29am [facility] [address] [place] [address] Progress Note - Wound Care 09/03/22 0829 MR#: [id number] Acct: [id number] Name: YOSEF JENNINGS Rep #:[id number] : 1940 82 From: Vinay zimmerman DPM PCP: Dr. Tracey Smith MD Status:R EG RCR Location: History of Present Illness Date of Service: 09/03/22 Chief Complaint: Left lower extremity ulceration x2 History of Wound: Patient is an 81-year-old female who presents to the wound care center with chronic ulceration x2 to the left lower extremity. She states she became very itchy on the inside of the left ankle and scratched creating 2 ulcerative wounds in April 2022. She reported to the ED soon after and was diagnosed with cellulitis and treated with oral antibiotics. She states that over the next few months the wounds however failed to progress in healing. She did fall recently and went to the [facility] ED for stitches in the right hand where she also had her wounds evaluated. ED physician notes chronic venous stasis with normal capillary fill time, however capillary fill time is diminished from previous visit in April. She has been applying bacitracin to the wounds however has not been wearing compression stockings. She continues to work and is on her feet for most of the day. She states when she comes home her legs are swollen and the ulcerative sites ache. Subjective Subjective This is an 82-year-old female seen for follow-up in the wound care center today for left lower extremity ulceration secondary to chronic venous stasis.? She hasconfirmed DVT and on Eliquis.? Currently denies calf pain. Has been changing dressings to left leg daily. She denies any constitutional symptoms.? She has nofurther complaints. Objective Data Objective Data Vital Signs: Vital Signs Temp Pulse Resp BP 97.1 F L 101 H 18 145/99 H 08/27/22 08:51 08/27/22 08:51 08/20/22 08:26 08/27/22 08:51 Physical Exam Const alert, oriented x3 and no apparent distress General Appearance: cooperative HEENT normocephalic Eyes General Eye: normal appearance of both eyes Neck General: normal visual inspection Lymph Lymphatic: no lymphadenopathy noted and no lymphedema noted Resp normal respiratory effort Cardio regular rate and regular rhythm Extremity normal capillary refill, no joint enlargement and no calf tenderness Extremity Narrative: Left lower extremity: DP and PT pulses are palpable. CFT less than 5 seconds tothe digits. Normal temperature gradient. Hair growth absent to the digits/foot. There is varicosities noted to the left lower extremity, periankle, and dorsal foot. +3 pitting edema noted. Ulceration noted to the medial ankle overlying the region of the great saphenous vein. There is hemosiderin deposition to the medial aspect of the leg consistent with venous stasis dermatitis. Right lower extremity: DP and PT pulses are palpable. CFT less than 5 seconds to the digits. Normal temperature gradient. Hair growth is absent to the digits/foot. There is varicosities noted to the right lower extremity, periankle, and dorsal foot. +1 pitting edema noted Skin no rashes or lesions noted, skin turgor normal and no jaundice Wound Narrative: Left lower extremity ulceration x2. Proximal medial ulceration is noted with healthy granular base. No signs of infection. Distal medial ulceration is noted overlying the region of the great saphenous vein with mixed fibrogranular base. No signs of infection. There is a little localized rubor noted about theulcerative sites however there is no increased temperature noted. No purulent drainage, no malodor, no palpable fluctuance/bogginess noted. Neuro moves all extremities Debridement Note Debridement Note Wound debrided: Left Lower extremity x 2 Laterality: Left Wound Grade/Stage: Blue state I Type of Debridement: Excisional debridement Anesthesia Used: 5% Lidocaine Gel Depth: Down to and including healthy tissue and in the subcutaneous layer Percentage of wound debrided: 100 Instrument Used: 5mm curette Tissue Removed: fibrous, devitalized subcutaneous, biofilm, slough Severity: Fat Layer Exposed Amount of bleeding with debridement: Mild Bleeding Controlled with: Compression and gauze Patient tolerated procedure: Patient tolerated procedure well Post-Debridement Measurements and Additional Note: Post-Debridement Measurements/Treatment JORGE - Nurse 1 - General Ulcer Assessment Start: 08/13/22 08:18 Freq: Status: Active Protocol: GERALD Activity Type Activity Date Activity User E-sign Co-sign Detail Recorded Client Recorded Date Recorded By Document 08/13/22 08:20 WA [id number] 08/13/22 08:26 AK Document 08/20/22 08:26 CICI [id number] 08/20/22 08:32 JF Document 08/27/22 08:51 AK [id number] 08/27/22 08:54 AK 08/13/22 08/20/22 08/27/22 08:20 08:26 08:51 - Today's Visit Information Type of service Initial Visit Follow-up Visit 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 (Physician/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 ) ) Arrival Mode Ambulatory Ambulatory Ambulatory Patient Identification Verified (Name & Yes Yes Yes ) Patient Requires Transmission-Based No No No Precautions Safety Precautions NA NA Vital Signs Temperature (97.8 F-99.1 F) 97.3 F L 96.1 F L 97.1 F L Temperature Source Temporal Temporal Temporal Pulse Rate (60-100) 97 106 H 101 H Pulse Location Monitor Monitor Monitor Respiratory Rate (12-18) 18 Respiratory rate source Observation Blood Pressure (90/60-120/80) 155/87 H 162/80 H 145/99 H Blood Pressure Mean (mm Hg) 109 107 114 Source Monitor Monitor Monitor Position Semi-Fowlers Blood Pressure Location Right Arm History Since Last Visit- (Skip if this is Patient's initial visit) Have you changed medications since your Yes No last visit? Any new allergies or adverse reactions No No Had a fall/change in ADL's that may No No increase risk of falls Signs or symptoms of abuse and/or No No neglect since last visit Have you been in the hospital since your No No last visit? Has dressing in place as prescribed Yes Yes Has compression in place as prescribed Yes Yes Has offloadiing in place as prescribed N/A N/A Experienced any changes in pain level or No No management Left Footwear Regular Shoe Regular Shoe Regular Shoe Right Footwear Regular Shoe Regular Shoe Regular Shoe Pain Scale: 0-10 Numeric Is Patient Pain Free? No Yes Yes - Nurse 1 - General Ulcer Measurement Start: 08/13/22 08:18 Freq: Status: Active Protocol: Activity Type Activity Date Activity User E-sign Co-sign Detail Recorded Client Recorded Date Recorded By Document 08/13/22 08:20 ADOLFO [id number] 08/13/22 08:26 AK Document 08/20/22 08:26 [id number] 08/20/22 08:32 JF Document 08/27/22 08:51 AK [id number] 08/27/22 08:54 AK 08/13/22 08/20/22 08/27/22 08:20 08:26 08:51 Wound Center Nurse 1 #2 Left medial LE Distal -Combined with other wound No No No -Current Size (cm) - Length 0.7 1.5 1.6 -Current Size (cm) - Width 0.5 1.0 1.6 -Current Size (cm) - Depth 0.1 0.2 0.1 -Total Square Cm 0.35 1.50 2.56 -Date of Last Picture (Recall this 08/13/22 field) -Photo Taken Yes Yes Yes -Epithelialization Medium 34-66% -Tunneling No No No -Undermining/Tunneling No No No -Circular Undermining No No No -Change in Wound Grade/Stage No No -Exudate Amt Medium Medium Medium -Exudate Type Serosanguineous Serosanguineous Serosanguineous -Wound Margin Distinct, Flat & Intact Distinct, Outline Outline Attached Attached -Granulation Amt Medium (34-66%) Medium (34-66%) Medium (34-66%) -Granulation Quality Mimbres Red Mimbres -Slough/Fibrin Yes Yes Yes -Necrosis Amt Medium (34-66%) Small (1-33%) Medium (34-66%) -Necrotic Tissue Type Adherent Slough Adherent Slough Adherent Slough -Structure Exposed N/A N/A N/A -Texture (Cristina-wound Skin Appearance) No Abnormality, Assessed, No Abnormality, Assessed Localized Edema Assessed -Moisture (Cristina-wound Skin Appearance) No Abnormality, Assessed,Dry/ No Abnormality, Assessed Scaly Assessed -Color (Cristina-wound Skin Appearance) No Abnormality, Assessed No Abnormality, Assessed Assessed -Temperature (Cristina-wound Skin No Abnormality No Abnormality No Abnormality Appearance) (Pt Warm) (Pt Warm) (Pt Warm) -Tenderness on Palpation (Cristina-wound No No No Skin Appearance) -Ulcer Cleansing Rinsed/ Wound Cleanser Rinsed/ Irrigated with Irrigated with Saline Saline -Foul Odor after Cleansing No No No -Anesthetic Used 5% Lidocaine 5% Lidocaine 5% Lidocaine Gel Gel Gel #1 Left medial ankle -Combined with other wound No No -Current Size (cm) - Length 1.7 1.5 0.6 -Current Size (cm) - Width 1.5 1 0.5 -Current Size (cm) - Depth 0.1 0.2 0.1 -Total Square Cm 2.55 1.5 0.30 -Date of Last Picture (Recall this 08/13/22 field) -Photo Taken Yes Yes Yes -Epithelialization Small 1-33% None Present -Tunneling No No No -Undermining/Tunneling No No No -Circular Undermining No No No -Change in Wound Grade/Stage No No -Exudate Amt Medium Small Medium -Exudate Type Serosanguineous Serosanguineous Serosanguineous -Wound Margin Distinct, Flat & Intact Distinct, Outline Outline Attached Attached -Granulation Amt Medium (34-66%) Medium (34-66%) Medium (34-66%) -Granulation Quality Mimbres,Red Red Mimbres -Slough/Fibrin Yes Yes Yes -Necrosis Amt Medium (34-66%) Small (1-33%) Medium (34-66%) -Necrotic Tissue Type Adherent Slough Adherent Slough Adherent Slough -Structure Exposed N/A N/A N/A -Texture (Cristina-wound Skin Appearance) No Abnormality, Assessed, No Abnormality, Assessed Localized Edema Assessed -Moisture (Cristina-wound Skin Appearance) No Abnormality, Assessed,Dry/ No Abnormality, Assessed Scaly Assessed -Color (Cristina-wound Skin Appearance) No Abnormality, Assessed, No Abnormality, Assessed Hemosiderin Assessed Staining -Temperature (Cristina-wound Skin No Abnormality No Abnormality No Abnormality Appearance) (Pt Warm) (Pt Warm) (Pt Warm) -Tenderness on Palpation (Cristina-wound No No No Skin Appearance) -Ulcer Cleansing Rinsed/ Wound Cleanser Rinsed/ Irrigated with Irrigated with Saline Saline -Foul Odor after Cleansing No No No -Anesthetic Used 5% Lidocaine 5% Lidocaine 5% Lidocaine Gel Gel Gel Lower Limb Edema Present No Yes Right Calf (cm) 37.5 37.0 Right Ankle (cm) 25.1 27.0 Left Calf (cm) 36.8 37 Left Ankle (cm) 26.7 26 WC - Nurse 2 - General Ulcer CM Notes Start: 08/13/22 08:18 Freq: Status: Active Protocol: Activity Type Activity Date Activity User E-sign Co-sign Detail Recorded Client Recorded Date Recorded By Document 08/13/22 11:38 PL [id number] 08/13/22 11:41 PL Document 08/20/22 11:53 PL [id number] 08/20/22 11:54 PL Document 08/27/22 11:50 PL [id number] 08/27/22 11:51 PL 08/13/22 08/20/22 08/27/22 11:38 11:53 11:50 Wound Center Nurse 2 #2 Left medial LE Distal -Time 08:40 08:50 08:56 -Correct Patient Yes Yes Yes -Correct Side, Site, Position Yes Yes Yes -Correct Procedure Yes Yes Yes -Procedure Performed Yes Yes Yes -Type of Procedure Debridement Debridement Debridement -Clinical Debridement Subcutaneous Subcutaneous Subcutaneous -Tissue Removed Subcutaneous Subcutaneous Dermis, Subcutaneous -Post Debridement (cm) - Length 1.6 1.5 1.6 -Post Debridement (cm) - Width 1.5 1.2 1.3 -Post Debridement (cm) - Depth 0.2 0.1 0.1 -Total Square (Post) (cm) 2.40 1.80 2.08 -Area of Debridement (cm) - Length 1.6 1.5 1.6 -Area of Debridement (cm) - Width 0.5 1.2 1.3 -Total Square (Area) (cm) 0.80 1.80 2.08 -Tunneling No No No -Undermining/Tunneling No No No -Circular Undermining No No No -Wound/Ulcer Outcome Not Healed Not Healed Not Healed -Ulcer Cleansing Rinsed/ Rinsed/ Rinsed/ Irrigated with Irrigated with Irrigated with Saline Saline Saline -Foul Odor after Cleansing No No No -Bioengineered Tissue No No No -Bleeding Controlled with Pressure Pressure -Treatment Response Procedure Procedure Tolerated Well Tolerated Well -Debridement - Subq, 1st 20sq cm No No No #1 Left medial ankle -Time 08:40 08:50 08:56 -Correct Patient Yes Yes Yes -Correct Side, Site, Position Yes Yes Yes -Correct Procedure Yes Yes Yes -Procedure Performed Yes Yes Yes -Type of Procedure Debridement Debridement Debridement -Clinical Debridement Subcutaneous Subcutaneous Subcutaneous -Tissue Removed Subcutaneous Subcutaneous Subcutaneous -Post Debridement (cm) - Length 0.6 0.5 0.5 -Post Debridement (cm) - Width 0.5 0.4 0.5 -Post Debridement (cm) - Depth 0.2 0.1 0.1 -Total Square (Post) (cm) 0.30 0.20 0.25 -Area of Debridement (cm) - Length 0.6 0.5 0.5 -Area of Debridement (cm) - Width 0.5 0.4 0.5 -Total Square (Area) (cm) 0.30 0.20 0.25 -Tunneling No No No -Undermining/Tunneling No No No -Circular Undermining No No No -Wound/Ulcer Outcome Not Healed Not Healed Not Healed -Ulcer Cleansing Rinsed/ Rinsed/ Rinsed/ Irrigated with Irrigated with Irrigated with Saline Saline Saline -Foul Odor after Cleansing No No No -Bioengineered Tissue No No No -Bleeding Controlled with Pressure Pressure Pressure -Treatment Response Procedure Procedure Procedure Tolerated Well Tolerated Well Tolerated Well -Debridement - Subq, 1st 20sq cm Yes Yes Yes Pain Scale: 0-10 Numeric Is Patient Pain Free? Yes Yes Yes - Nurse 3 - General Ulcer D/C NN Start: 08/13/22 08:18 Freq: Status: Active Protocol: Activity Type Activity Date Activity User E-sign Co-sign Detail Recorded Client Recorded Date Recorded By Document 08/20/22 09:10 [id number] 08/20/22 09:11 Document 08/27/22 09:18 [id number] 08/27/22 09:19 08/20/22 08/27/22 09:10 09:18 Wound Care Center Nurse 3 #2 Left medial LE Distal -Ulcer Cleansing Rinsed/ Rinsed/ Irrigated with Irrigated with Saline Saline -Foul Odor after Cleansing No No -Primary Dressing Applied C Hydrogel ($) C Hydrogel ($), Collagen Powder ($) -Other Dressing AMD -Primary Dressing Covered/Secured with Dry Gauze & Roll Gauze, Secured with Tape #1 Left medial ankle -Ulcer Cleansing Rinsed/ Rinsed/ Irrigated with Irrigated with Saline Saline -Foul Odor after Cleansing No No -Primary Dressing Applied Collagen Powder C Hydrogel ($), ($) Collagen Powder ($) -Other Dressing AMD foam AMD -Primary Dressing Covered/Secured with Secured with Dry Gauze & Tape Roll Gauze, Secured with Tape Right -Tubular Bandage Single Layer -Size of Tubigrip Used Size D -Size D ($) 1 Left -Tubular Bandage Single Layer Single Layer -Size of Tubigrip Used Size D Size E -Size D ($) 1 -Size E ($) 0 Pain Scale: 0-10 Numeric Is Patient Pain Free? Yes Yes WC - Visit Discharge Discharge Condition Stable Stable Ambulatory Status Ambulatory Ambulatory Transportation Private Auto Private Auto Medication Reconcilliation completed & Yes Yes provided to patient/care provider Clinical Summary of Care Provided Yes Yes Assessment/Plan Assessment/Plan (1) Bilateral edema of lower extremity: CODE(S): R60.0 - Localized edema (2) Venous insufficiency (chronic) (peripheral): CODE(S): I87.2 - Venous insufficiency (chronic) (peripheral) (3) Non-pressure chronic ulcer of left calf with fat layer exposed: CODE(S): L97.222 - Non-pressure chronic ulcer of left calf with fat layer exposed PLAN: Plan Patient seen and evaluated Ulceration to the distal aspect of the left lower extremity x2 was debrided as noted in the clinical panel above. Ulcerative sites demonstrates no erythema, no lymphangitic streaking, no purulent drainage, no malodor, no palpable fluctuance/bogginess noted. Proximal medial ulceration measures 0.3 cm x 0.3 cm x 0.2 cm in the distal medial malleoli are ulceration measures 1.5 cm x 1.3 cm x 0.1 cm. She has been approved for advanced wound care product. Epi fix graft #1 applied to ulcerative sites and anchored with Adaptic touch and Steri-Strips with dry sterile dressing. She was instructed to not get the site wet and only change outer dressings as needed. Tubigrip compression stocking applied to the left lower extremity to aid in edema control. I discussed continued application of Tubigrip compression stocking and ultimately transition to knee-high compression stocking of 20 to 30 mmHg to aid in her edema control. She is instructed to elevate the lower extremities at all times of rest. I discussed with her that reduction of the edema is essential in her healing process. Due to her diminished capillary fill time over the last few months LEAS was ordered 08/13/22 along with venous studies of bilateral lower extremities. LEAS demonstrates Triphasic and Biphasic Doppler at Right ankle and Biphasic Doppler at Left ankle. Digital incidices normal. Normal PVR. Venous studies demonstratedDVT of Right lower extremity. She was started on Eliquis. Encouraged adequate protein intake and collagen supplement Gregory to aid in her healing. I discussed with her today signs and symptoms of infection to continue to observe. She was instructed that if she notices any increasing redness about the ulcerative sites that moves up the leg, from the wounds, increased foul odorfrom the wounds purulent drainage, or if she experiences fever greater than 101 degree, or any nausea, vomiting, or chills that these are signs of a progressinginfection and she is to report to the ED. She voices understanding of this discussion today. Dressing: EpiFix graft, Adaptic touch, Steri-Strips, DSD with Tubigrip Wash: Do not get wet Tissue growth optimization: EpiFix Offload: Tubigrip compression stocking, elevating bilateral lower extremities. She is to ensure she does not rest the left lower extremity against the right lower extremity to prevent continued pressure during sleeping Vascular: DP and PT pulses palpable. CFT less than 5 seconds to the digits. LEAS demonstrates no arterial disease. Edema: Tubigrip compression stocking, elevating bilateral lower extremities at all times at rest Infection: No signs of infection Pain: May take [id number] Tylenol for discomfort Host factors: Chronic venous stasis with palpable varicosities to the lower extremity and foot, edema. I answered all the patient's questions. To return to the wound healing center in 1 week or call sooner if the patient has any questions or concerns. Note: [employer] speech recognition pillowcase maker software was used to create portions of this document. Sound-alike and misspelled words, as well as other pillowcase maker errors may be contained in the documentation. 09/03/222158 <Electronically signed by Vinay Weiss DPM> Cosigner Signature (if applicable): CC: ~ Signed [facility] Work Phone: [phone] Progress note Author Vinay Weiss [facility] August 27, 2022 9:19am Note Date/Time August 27, 2022 8:28am [facility] [address] [place] [address] Progress Note - Wound Care 08/27/22 0828 MR#: [id number] Acct: [id number] Name: YOSEF JENNINGS Rep #:[id number] : 1940 82 From: Vinay zimmerman DPM PCP: Dr. Tracey Smith MD Status:R EG RCR Location: History of Present Illness Date of Service: 08/27/22 Chief Complaint: Left lower extremity ulceration x2 History of Wound: Patient is an 81-year-old female who presents to the wound care center with chronic ulceration x2 to the left lower extremity. She states she became very itchy on the inside of the left ankle and scratched creating 2 ulcerative wounds in April 2022. She reported to the ED soon after and was diagnosed with cellulitis and treated with oral antibiotics. She states that over the next few months the wounds however failed to progress in healing. She did fall recently and went to the [facility] ED for stitches in the right hand where she also had her wounds evaluated. ED physician notes chronic venous stasis with normal capillary fill time, however capillary fill time is diminished from previous visit in April. She has been applying bacitracin to the wounds however has not been wearing compression stockings. She continues to work and is on her feet for most of the day. She states when she comes home her legs are swollen and the ulcerative sites ache. Subjective Subjective This is an 81-year-old female seen for follow-up in the wound care center today for left lower extremity ulceration secondary to chronic venous stasis.? She wastreated in the ED for confirmed DVT post vascular studies.? Patient was started on Eliquis.? Currently denies calf pain.? She denies any constitutional symptoms.? She has no further complaints. Objective Data Objective Data Vital Signs: Vital Signs Temp Pulse Resp BP 96.1 F L 106 H 18 162/80 H 08/20/22 08:26 08/20/22 08:26 08/20/22 08:26 08/20/22 08:26 Physical Exam Const alert, oriented x3 and no apparent distress General Appearance: cooperative HEENT normocephalic Eyes General Eye: normal appearance of both eyes Neck General: normal visual inspection Lymph Lymphatic: no lymphadenopathy noted and no lymphedema noted Resp normal respiratory effort Cardio regular rate and regular rhythm Extremity normal capillary refill, no joint enlargement and no calf tenderness Extremity Narrative: Left lower extremity: DP and PT pulses are palpable. CFT less than 5 seconds tothe digits. Normal temperature gradient. Hair growth absent to the digits/foot. There is varicosities noted to the left lower extremity, periankle, and dorsal foot. +3 pitting edema noted. Ulceration noted to the medial ankle overlying the region of the great saphenous vein. There is hemosiderin deposition to the medial aspect of the leg consistent with venous stasis dermatitis. Right lower extremity: DP and PT pulses are palpable. CFT less than 5 seconds to the digits. Normal temperature gradient. Hair growth is absent to the digits/foot. There is varicosities noted to the right lower extremity, periankle, and dorsal foot. +1 pitting edema noted Skin no rashes or lesions noted, skin turgor normal and no jaundice Wound Narrative: Left lower extremity ulceration x2. Proximal medial ulceration is noted with healthy granular base. No signs of infection. Distal medial ulceration is noted overlying the region of the great saphenous vein with mixed fibrogranular base. No signs of infection. There is a little localized rubor noted about theulcerative sites however there is no increased temperature noted. No purulent drainage, no malodor, no palpable fluctuance/bogginess noted. Neuro moves all extremities Debridement Note Debridement Note Wound debrided: Left lower extremity x2 Laterality: Left Wound Grade/Stage: Blue stage I Type of Debridement: Excisional debridement Anesthesia Used: 5% Lidocaine Gel Depth: Down to and including healthy tissue and in the subcutaneous layer Percentage of wound debrided: 100 Instrument Used: 3mm curette Tissue Removed: Fibrous, devitalized subcutaneous, biofilm, slough Severity: Fat Layer Exposed Amount of bleeding with debridement: Mild Bleeding Controlled with: Compression and gauze Patient tolerated procedure: Patient tolerated procedure well Post-Debridement Measurements and Additional Note: Post-Debridement Measurements/Treatment - Nurse 1 - General Ulcer Assessment Start: 08/13/22 08:18 Freq: Status: Active Protocol: [email or web address] Activity Type Activity Date Activity User E-sign Co-sign Detail Recorded Client Recorded Date Recorded By Document 08/13/22 08:20 AK [id number] 08/13/22 08:26 AK Document 08/20/22 08:26 CICI [id number] 08/20/22 08:32 CICI 08/13/22 08/20/22 08:20 08:26 - Today's Visit Information Type of service Initial Visit 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 ) Arrival Mode Ambulatory Ambulatory Patient Identification Verified (Name & Yes Yes ) Patient Requires Transmission-Based No No Precautions Safety Precautions NA Vital Signs Temperature (97.8 F-99.1 F) 97.3 F L 96.1 F L Temperature Source Temporal Temporal Pulse Rate (60-100) 97 106 H Pulse Location Monitor Monitor Respiratory Rate (12-18) 18 Respiratory rate source Observation Blood Pressure (90/60-120/80) 155/87 H 162/80 H Blood Pressure Mean (mm Hg) 109 107 Source Monitor Monitor Position Semi-Fowlers Blood Pressure Location Right Arm History Since Last Visit- (Skip if this is Patient's initial visit) Have you changed medications since your Yes last visit? Any new allergies or adverse reactions No Had a fall/change in ADL's that may No increase risk of falls Signs or symptoms of abuse and/or No neglect since last visit Have you been in the hospital since your No last visit? Has dressing in place as prescribed Yes Has compression in place as prescribed Yes Has offloadiing in place as prescribed N/A Experienced any changes in pain level or No management Left Footwear Regular Shoe Regular Shoe Right Footwear Regular Shoe Regular Shoe Pain Scale: 0-10 Numeric Is Patient Pain Free? No Yes WC - Nurse 1 - General Ulcer Measurement Start: 08/13/22 08:18 Freq: Status: Active Protocol: Activity Type Activity Date Activity User E-sign Co-sign Detail Recorded Client Recorded Date Recorded By Document 08/13/22 08:20 AK [id number] 08/13/22 08:26 AK Document 08/20/22 08:26 [id number] 08/20/22 08:32 JF 08/13/22 08/20/22 08:20 08:26 Wound Center Nurse 1 #2 Left medial LE Distal -Combined with other wound No No -Current Size (cm) - Length 0.7 1.5 -Current Size (cm) - Width 0.5 1.0 -Current Size (cm) - Depth 0.1 0.2 -Total Square Cm 0.35 1.50 -Date of Last Picture (Recall this 08/13/22 field) -Photo Taken Yes Yes -Epithelialization Medium 34-66% -Tunneling No No -Undermining/Tunneling No No -Circular Undermining No No -Change in Wound Grade/Stage No -Exudate Amt Medium Medium -Exudate Type Serosanguineous Serosanguineous -Wound Margin Distinct, Flat & Intact Outline Attached -Granulation Amt Medium (34-66%) Medium (34-66%) -Granulation Quality Mimbres Red -Slough/Fibrin Yes Yes -Necrosis Amt Medium (34-66%) Small (1-33%) -Necrotic Tissue Type Adherent Slough Adherent Slough -Structure Exposed N/A N/A -Texture (Cristina-wound Skin Appearance) No Abnormality, Assessed, Assessed Localized Edema -Moisture (Cristina-wound Skin Appearance) No Abnormality, Assessed,Dry/ Assessed Scaly -Color (Cristina-wound Skin Appearance) No Abnormality, Assessed Assessed -Temperature (Cristina-wound Skin No Abnormality No Abnormality Appearance) (Pt Warm) (Pt Warm) -Tenderness on Palpation (Cristina-wound No No Skin Appearance) -Ulcer Cleansing Rinsed/ Wound Cleanser Irrigated with Saline -Foul Odor after Cleansing No No -Anesthetic Used 5% Lidocaine 5% Lidocaine Gel Gel #1 Left medial ankle -Combined with other wound No -Current Size (cm) - Length 1.7 1.5 -Current Size (cm) - Width 1.5 1 -Current Size (cm) - Depth 0.1 0.2 -Total Square Cm 2.55 1.5 -Date of Last Picture (Recall this 08/13/22 field) -Photo Taken Yes Yes -Epithelialization Small 1-33% -Tunneling No No -Undermining/Tunneling No No -Circular Undermining No No -Change in Wound Grade/Stage No -Exudate Amt Medium Small -Exudate Type Serosanguineous Serosanguineous -Wound Margin Distinct, Flat & Intact Outline Attached -Granulation Amt Medium (34-66%) Medium (34-66%) -Granulation Quality Mimbres,Red Red -Slough/Fibrin Yes Yes -Necrosis Amt Medium (34-66%) Small (1-33%) -Necrotic Tissue Type Adherent Slough Adherent Slough -Structure Exposed N/A N/A -Texture (Cristina-wound Skin Appearance) No Abnormality, Assessed, Assessed Localized Edema -Moisture (Cristina-wound Skin Appearance) No Abnormality, Assessed,Dry/ Assessed Scaly -Color (Cristina-wound Skin Appearance) No Abnormality, Assessed, Assessed Hemosiderin Staining -Temperature (Cristina-wound Skin No Abnormality No Abnormality Appearance) (Pt Warm) (Pt Warm) -Tenderness on Palpation (Cristina-wound No No Skin Appearance) -Ulcer Cleansing Rinsed/ Wound Cleanser Irrigated with Saline -Foul Odor after Cleansing No No -Anesthetic Used 5% Lidocaine 5% Lidocaine Gel Gel Lower Limb Edema Present No Yes Right Calf (cm) 37.5 37.0 Right Ankle (cm) 25.1 27.0 Left Calf (cm) 36.8 Left Ankle (cm) 26.7 WC - Nurse 2 - General Ulcer CM Notes Start: 08/13/22 08:18 Freq: Status: Active Protocol: Activity Type Activity Date Activity User E-sign Co-sign Detail Recorded Client Recorded Date Recorded By Document 08/13/22 11:38 PL [id number] 08/13/22 11:41 PL Document 08/20/22 11:53 PL [id number] 08/20/22 11:54 PL 08/13/22 08/20/22 11:38 11:53 Wound Center Nurse 2 #2 Left medial LE Distal -Time 08:40 08:50 -Correct Patient Yes Yes -Correct Side, Site, Position Yes Yes -Correct Procedure Yes Yes -Procedure Performed Yes Yes -Type of Procedure Debridement Debridement -Clinical Debridement Subcutaneous Subcutaneous -Tissue Removed Subcutaneous Subcutaneous -Post Debridement (cm) - Length 1.6 1.5 -Post Debridement (cm) - Width 1.5 1.2 -Post Debridement (cm) - Depth 0.2 0.1 -Total Square (Post) (cm) 2.40 1.80 -Area of Debridement (cm) - Length 1.6 1.5 -Area of Debridement (cm) - Width 0.5 1.2 -Total Square (Area) (cm) 0.80 1.80 -Tunneling No No -Undermining/Tunneling No No -Circular Undermining No No -Wound/Ulcer Outcome Not Healed Not Healed -Ulcer Cleansing Rinsed/ Rinsed/ Irrigated with Irrigated with Saline Saline -Foul Odor after Cleansing No No -Bioengineered Tissue No No -Bleeding Controlled with Pressure -Treatment Response Procedure Tolerated Well -Debridement - Subq, 1st 20sq cm No No #1 Left medial ankle -Time 08:40 08:50 -Correct Patient Yes Yes -Correct Side, Site, Position Yes Yes -Correct Procedure Yes Yes -Procedure Performed Yes Yes -Type of Procedure Debridement Debridement -Clinical Debridement Subcutaneous Subcutaneous -Tissue Removed Subcutaneous Subcutaneous -Post Debridement (cm) - Length 0.6 0.5 -Post Debridement (cm) - Width 0.5 0.4 -Post Debridement (cm) - Depth 0.2 0.1 -Total Square (Post) (cm) 0.30 0.20 -Area of Debridement (cm) - Length 0.6 0.5 -Area of Debridement (cm) - Width 0.5 0.4 -Total Square (Area) (cm) 0.30 0.20 -Tunneling No No -Undermining/Tunneling No No -Circular Undermining No No -Wound/Ulcer Outcome Not Healed Not Healed -Ulcer Cleansing Rinsed/ Rinsed/ Irrigated with Irrigated with Saline Saline -Foul Odor after Cleansing No No -Bioengineered Tissue No No -Bleeding Controlled with Pressure Pressure -Treatment Response Procedure Procedure Tolerated Well Tolerated Well -Debridement - Subq, 1st 20sq cm Yes Yes Pain Scale: 0-10 Numeric Is Patient Pain Free? Yes Yes - Nurse 3 - General Ulcer D/C NN Start: 08/13/22 08:18 Freq: Status: Active Protocol: Activity Type Activity Date Activity User E-sign Co-sign Detail Recorded Client Recorded Date Recorded By Document 08/20/22 09:10 [id number] 08/20/22 09:11 CICI 08/20/22 09:10 Wound Care Center Nurse 3 #2 Left medial LE Distal -Ulcer Cleansing Rinsed/ Irrigated with Saline -Foul Odor after Cleansing No -Primary Dressing Applied C Hydrogel ($) -Primary Dressing Covered/Secured with Dry Gauze & Roll Gauze, Secured with Tape #1 Left medial ankle -Ulcer Cleansing Rinsed/ Irrigated with Saline -Foul Odor after Cleansing No -Primary Dressing Applied Collagen Powder ($) -Other Dressing AMD foam -Primary Dressing Covered/Secured with Secured with Tape Right -Tubular Bandage Single Layer -Size of Tubigrip Used Size D -Size D ($) 1 Left -Tubular Bandage Single Layer -Size of Tubigrip Used Size D -Size D ($) 1 Pain Scale: 0-10 Numeric Is Patient Pain Free? Yes WC - Visit Discharge Discharge Condition Stable Ambulatory Status Ambulatory Transportation Private Auto Medication Reconcilliation completed & Yes provided to patient/care provider Clinical Summary of Care Provided Yes Assessment/Plan Assessment/Plan (1) Bilateral edema of lower extremity: CODE(S): R60.0 - Localized edema (2) Venous insufficiency (chronic) (peripheral): CODE(S): I87.2 - Venous insufficiency (chronic) (peripheral) (3) Non-pressure chronic ulcer of left calf with fat layer exposed: CODE(S): L97.222 - Non-pressure chronic ulcer of left calf with fat layer exposed PLAN: Plan Patient seen and evaluated Ulceration to the distal aspect of the left lower extremity x2 was debrided as noted in the clinical panel above. Ulcerative sites demonstrates no erythema, no lymphangitic streaking, no purulent drainage, no malodor, no palpable fluctuance/bogginess noted. Proximal medial ulceration measures 0.5 cm x 0.5 cmx 0.2 cm in the distal medial malleoli are ulceration measures 1.6 cm x 1.3 cm x0.2 cm. Collagen powder and hydrogel applied to the proximal ulcerative site. Hydrogel with collagen powder applied to distal ulcerative site with DSD. She isinstructed to change these dressings daily. Tubigrip compression stocking applied to the left lower extremity to aid in edema control. I will look to obtain approval for an advanced wound care product to be applied at next visit. I discussed continued application of Tubigrip compression stocking and ultimately transition to knee-high compression stocking of 20 to 30 mmHg to aid inher edema control. She is instructed to elevate the lower extremities at all times of rest. I discussed with her that reduction of the edema is essential inher healing process. Due to her diminished capillary fill time over the last few months LEAS was ordered today due 08/13/22 along with venous studies of bilateral lower extremities. LEAS demonstrates Triphasic and Biphasic Doppler at Right ankle andBiphasic Doppler at Left ankle. Digital incidices normal. Normal PVR. Venous studies demonstrated DVT of Right lower extremity. She was started on Eliquis. Encouraged adequate protein intake and collagen supplement Gregory to aid in her healing. I discussed with her today signs and symptoms of infection to continue to observe. She was instructed that if she notices any increasing redness about the ulcerative sites that moves up the leg, from the wounds, increased foul odorfrom the wounds purulent drainage, or if she experiences fever greater than 101 degree, or any nausea, vomiting, or chills that these are signs of a progressinginfection and she is to report to the ED. She voices understanding of this discussion today. Dressing: Collagen powder PHMB dressing with Tubigrip Wash: Soap and water, pat dry Tissue growth optimization: Collagen powder PHMB dressing Offload: Tubigrip compression stocking, elevating bilateral lower extremities. She is to ensure she does not rest the left lower extremity against the right lower extremity to prevent continued pressure during sleeping Vascular: DP and PT pulses palpable. CFT less than 5 seconds to the digits. LEAS demonstrates no arterial disease. Edema: Tubigrip compression stocking, elevating bilateral lower extremities at all times at rest Infection: No signs of infection Pain: May take [id number] Tylenol for discomfort Host factors: Chronic venous stasis with palpable varicosities to the lower extremity and foot, edema. I answered all the patient's questions. To return to the wound healing center in 1 week or call sooner if the patient has any questions or concerns. Note: [employer] speech recognition pillowcase maker software was used to create portions of this document. Sound-alike and misspelled words, as well as other pillowcase maker errors may be contained in the documentation. 08/27/22918 <Electronically signed by Vinay Weiss DPM> Cosigner Signature (if applicable): CC: ~ Signed [facility] Work Phone: [phone]) 785-862802-09-2023 Progress note Author Vinay Weiss [facility] August 20, 2022 9:46am Note Date/Time August 20, 2022 8 :56am [facility] [address] [place] [address] Progress Note - Wound Care 08/20/22 0856 MR#: [id number] Acct: [id number] Name: YOSEF JENNINGS Rep #:[id number] : 1940 81 From: Vinay zimmerman DPM PCP: Dr. Tracey Smith MD Status:R EG RCR Location: History of Present Illness Date of Service: 08/20/22 Chief Complaint: Left lower extremity ulceration x2 History of Wound: Patient is an 81-year-old female who presents to the wound care center with chronic ulceration x2 to the left lower extremity. She states she became very itchy on the inside of the left ankle and scratched creating 2 ulcerative wounds in April 2022. She reported to the ED soon after and was diagnosed with cellulitis and treated with oral antibiotics. She states that over the next few months the wounds however failed to progress in healing. She did fall recently and went to the [facility] ED for stitches in the right hand where she also had her wounds evaluated. ED physician notes chronic venous stasis with normal capillary fill time, however capillary fill time is diminished from previous visit in April. She has been applying bacitracin to the wounds however has not been wearing compression stockings. She continues to work and is on her feet for most of the day. She states when she comes home her legs are swollen and the ulcerative sites ache. Subjective Subjective This is an 81-year-old female seen for follow-up in the wound care center today for left lower extremity ulceration secondary to chronic venous stasis. She wastreated in the ED last night for confirmed DVT post vascular studies. Patient started on Eliquis. Currently denies calf pain. She denies any constitutional symptoms. She has no further complaints. Objective Data Objective Data Vital Signs: Vital Signs Temp Pulse Resp BP 96.1 F L 106 H 18 162/80 H 08/20/22 08:26 08/20/22 08:26 08/20/22 08:26 08/20/22 08:26 Radiography Diagnostic Testing: Radiology Impression Extremity Arterial Study 08/19/22 14:19 Interpretation Summary Triphasic and biphasic Doppler waveforms are noted at ankle level on the right. Triphasic Doppler waveforms are noted at ankle level on the left. Pulse-volume recordings appear satisfactory at ankle and digital level bilaterally. Resting ankle-brachial indices are normal bilaterally. Digital- brachial indices are normal bilaterally. There is no evidence of significant arterial occlusive disease in the lower extremities bilaterally. Ordering Physician: Vinay Weiss Referring Physician: Tracey Smith Performed By: Al Castro RVT Venous Doppler Study 08/19/22 14:19 Interpretation Summary Acute deep vein thrombosis is noted in the right gastrocnemius vein. The remainder of the right lower extremity deep venous system is patent and compressible. Deep veins of theleft lower extremity are patent and compressible segmentally. There is no evidence of left lower extremity deep vein thrombosis. Valvular competence appears intact within the proximal deep venous systems bilaterally. The great saphenous veins appear bilaterally patent and compressible segmentally. The right sapheno-femoral junction is competent . The left sapheno-femoral junction is incompetent . Segmental valvular incompetence is noted within the great saphenous veins bilaterally. The right small saphenous vein is patent and competent. The left small saphenous vein is patent and incompetent. An incompetent calibration specialist vein is noted in the right mid-calf. Ordering Physician: Vinay Weiss Referring Physician: Tracey Smith Performed By: Al Castro RVT Physical Exam Const alert, oriented x3 and no apparent distress General Appearance: cooperative HEENT normocephalic Eyes General Eye: normal appearance of both eyes Neck General: normal visual inspection Lymph Lymphatic: no lymphadenopathy noted and no lymphedema noted Resp normal respiratory effort Cardio regular rate and regular rhythm Extremity normal capillary refill, no joint enlargement and no calf tenderness Extremity Narrative: Left lower extremity: DP and PT pulses are palpable. CFT less than 5 seconds tothe digits. Normal temperature gradient. Hair growth absent to the digits/foot. There is varicosities noted to the left lower extremity, periankle, and dorsal foot. +3 pitting edema noted. Ulceration noted to the medial ankle overlying the region of the great saphenous vein. There is hemosiderin deposition to the medial aspect of the leg consistent with venous stasis dermatitis. Right lower extremity: DP and PT pulses are palpable. CFT less than 5 seconds to the digits. Normal temperature gradient. Hair growth is absent to the digits/foot. There is varicosities noted to the right lower extremity, periankle, and dorsal foot. +1 pitting edema noted Skin no rashes or lesions noted, skin turgor normal and no jaundice Wound Narrative: Left lower extremity ulceration x2. Proximal medial ulceration is noted with healthy granular base. No signs of infection. Distal medial ulceration is noted overlying the region of the great saphenous vein with mixed fibrogranular base. No signs of infection. There is a little localized rubor noted about theulcerative sites however there is no increased temperature noted. No purulent drainage, no malodor, no palpable fluctuance/bogginess noted. Neuro moves all extremities Debridement Note Debridement Note Wound debrided: Left lower extremity x 2 Laterality: Left Wound Grade/Stage: Blue stage I Type of Debridement: Excisional debridement Anesthesia Used: 5% Lidocaine Gel Depth: Down to and including healthy tissue and in the subcutaneous layer Percentage of wound debrided: 100 Instrument Used: 3mm curette Tissue Removed: Fibrous, devitalized subcutaneous, biofilm, slough Severity: Fat Layer Exposed Amount of bleeding with debridement: Mild Bleeding Controlled with: Compression and gauze Patient tolerated procedure: Patient tolerated procedure well Post-Debridement Measurements and Additional Note: Post-Debridement Measurements/Treatment - Nurse 1 - General Ulcer Assessment Start: 08/13/22 08:18 Freq: Status: Active Protocol: GERALD Activity Type Activity Date Activity User E-sign Co-sign Detail Recorded Client Recorded Date Recorded By Document 08/13/22 08:20 AK [id number] 08/13/22 08:26 AK Document 08/20/22 08:26 CICI [id number] 08/20/22 08:32 CICI 08/13/22 08/20/22 08:20 08:26 - Today's Visit Information Type of service Initial Visit 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 ) Arrival Mode Ambulatory Ambulatory Patient Identification Verified (Name & Yes Yes ) Patient Requires Transmission-Based No No Precautions Safety Precautions NA Vital Signs Temperature (97.8 F-99.1 F) 97.3 F L 96.1 F L Temperature Source Temporal Temporal Pulse Rate (60-100) 97 106 H Pulse Location Monitor Monitor Respiratory Rate (12-18) 18 Respiratory rate source Observation Blood Pressure (90/60-120/80) 155/87 H 162/80 H Blood Pressure Mean (mm Hg) 109 107 Source Monitor Monitor Position Semi-Fowlers Blood Pressure Location Right Arm History Since Last Visit- (Skip if this is Patient's initial visit) Have you changed medications since your Yes last visit? Any new allergies or adverse reactions No Had a fall/change in ADL's that may No increase risk of falls Signs or symptoms of abuse and/or No neglect since last visit Have you been in the hospital since your No last visit? Has dressing in place as prescribed Yes Has compression in place as prescribed Yes Has offloadiing in place as prescribed N/A Experienced any changes in pain level or No management Left Footwear Regular Shoe Regular Shoe Right Footwear Regular Shoe Regular Shoe Pain Scale: 0-10 Numeric Is Patient Pain Free? No Yes WC - Nurse 1 - General Ulcer Measurement Start: 08/13/22 08:18 Freq: Status: Active Protocol: Activity Type Activity Date Activity User E-sign Co-sign Detail Recorded Client Recorded Date Recorded By Document 08/13/22 08:20 AK [id number] 08/13/22 08:26 AK Document 08/20/22 08:26 [id number] 08/20/22 08:32 08/13/22 08/20/22 08:20 08:26 Wound Center Nurse 1 #2 Left medial LE Distal -Combined with other wound No No -Current Size (cm) - Length 0.7 1.5 -Current Size (cm) - Width 0.5 1.0 -Current Size (cm) - Depth 0.1 0.2 -Total Square Cm 0.35 1.50 -Date of Last Picture (Recall this 08/13/22 field) -Photo Taken Yes Yes -Epithelialization Medium 34-66% -Tunneling No No -Undermining/Tunneling No No -Circular Undermining No No -Change in Wound Grade/Stage No -Exudate Amt Medium Medium -Exudate Type Serosanguineous Serosanguineous -Wound Margin Distinct, Flat & Intact Outline Attached -Granulation Amt Medium (34-66%) Medium (34-66%) -Granulation Quality Mimbres Red -Slough/Fibrin Yes Yes -Necrosis Amt Medium (34-66%) Small (1-33%) -Necrotic Tissue Type Adherent Slough Adherent Slough -Structure Exposed N/A N/A -Texture (Cristina-wound Skin Appearance) No Abnormality, Assessed, Assessed Localized Edema -Moisture (Cristina-wound Skin Appearance) No Abnormality, Assessed,Dry/ Assessed Scaly -Color (Cristina-wound Skin Appearance) No Abnormality, Assessed Assessed -Temperature (Cristina-wound Skin No Abnormality No Abnormality Appearance) (Pt Warm) (Pt Warm) -Tenderness on Palpation (Cristina-wound No No Skin Appearance) -Ulcer Cleansing Rinsed/ Wound Cleanser Irrigated with Saline -Foul Odor after Cleansing No No -Anesthetic Used 5% Lidocaine 5% Lidocaine Gel Gel #1 Left medial ankle -Combined with other wound No -Current Size (cm) - Length 1.7 1.5 -Current Size (cm) - Width 1.5 1 -Current Size (cm) - Depth 0.1 0.2 -Total Square Cm 2.55 1.5 -Date of Last Picture (Recall this 08/13/22 field) -Photo Taken Yes Yes -Epithelialization Small 1-33% -Tunneling No No -Undermining/Tunneling No No -Circular Undermining No No -Change in Wound Grade/Stage No -Exudate Amt Medium Small -Exudate Type Serosanguineous Serosanguineous -Wound Margin Distinct, Flat & Intact Outline Attached -Granulation Amt Medium (34-66%) Medium (34-66%) -Granulation Quality Mimbres,Red Red -Slough/Fibrin Yes Yes -Necrosis Amt Medium (34-66%) Small (1-33%) -Necrotic Tissue Type Adherent Slough Adherent Slough -Structure Exposed N/A N/A -Texture (Cristina-wound Skin Appearance) No Abnormality, Assessed, Assessed Localized Edema -Moisture (Cristina-wound Skin Appearance) No Abnormality, Assessed,Dry/ Assessed Scaly -Color (Cristina-wound Skin Appearance) No Abnormality, Assessed, Assessed Hemosiderin Staining -Temperature (Cristina-wound Skin No Abnormality No Abnormality Appearance) (Pt Warm) (Pt Warm) -Tenderness on Palpation (Cristina-wound No No Skin Appearance) -Ulcer Cleansing Rinsed/ Wound Cleanser Irrigated with Saline -Foul Odor after Cleansing No No -Anesthetic Used 5% Lidocaine 5% Lidocaine Gel Gel Lower Limb Edema Present No Yes Right Calf (cm) 37.5 37.0 Right Ankle (cm) 25.1 27.0 Left Calf (cm) 36.8 Left Ankle (cm) 26.7 WC - Nurse 2 - General Ulcer CM Notes Start: 08/13/22 08:18 Freq: Status: Active Protocol: Activity Type Activity Date Activity User E-sign Co-sign Detail Recorded Client Recorded Date Recorded By Document 08/13/22 11:38 PL [id number] 08/13/22 11:41 PL 08/13/22 11:38 Wound Center Nurse 2 #2 Left medial LE Distal -Time 08:40 -Correct Patient Yes -Correct Side, Site, Position Yes -Correct Procedure Yes -Procedure Performed Yes -Type of Procedure Debridement -Clinical Debridement Subcutaneous -Tissue Removed Subcutaneous -Post Debridement (cm) - Length 1.6 -Post Debridement (cm) - Width 1.5 -Post Debridement (cm) - Depth 0.2 -Total Square (Post) (cm) 2.40 -Area of Debridement (cm) - Length 1.6 -Area of Debridement (cm) - Width 0.5 -Total Square (Area) (cm) 0.80 -Tunneling No -Undermining/Tunneling No -Circular Undermining No -Wound/Ulcer Outcome Not Healed -Ulcer Cleansing Rinsed/ Irrigated with Saline -Foul Odor after Cleansing No -Bioengineered Tissue No -Debridement - Subq, 1st 20sq cm No #1 Left medial ankle -Time 08:40 -Correct Patient Yes -Correct Side, Site, Position Yes -Correct Procedure Yes -Procedure Performed Yes -Type of Procedure Debridement -Clinical Debridement Subcutaneous -Tissue Removed Subcutaneous -Post Debridement (cm) - Length 0.6 -Post Debridement (cm) - Width 0.5 -Post Debridement (cm) - Depth 0.2 -Total Square (Post) (cm) 0.30 -Area of Debridement (cm) - Length 0.6 -Area of Debridement (cm) - Width 0.5 -Total Square (Area) (cm) 0.30 -Tunneling No -Undermining/Tunneling No -Circular Undermining No -Wound/Ulcer Outcome Not Healed -Ulcer Cleansing Rinsed/ Irrigated with Saline -Foul Odor after Cleansing No -Bioengineered Tissue No -Bleeding Controlled with Pressure -Treatment Response Procedure Tolerated Well -Debridement - Subq, 1st 20sq cm Yes Pain Scale: 0-10 Numeric Is Patient Pain Free? Yes Assessment/Plan Assessment/Plan (1) Bilateral edema of lower extremity: CODE(S): R60.0 - Localized edema (2) Venous insufficiency (chronic) (peripheral): CODE(S): I87.2 - Venous insufficiency (chronic) (peripheral) (3) Non-pressure chronic ulcer of left calf with fat layer exposed: CODE(S): L97.222 - Non-pressure chronic ulcer of left calf with fat layer exposed PLAN: Plan Patient seen and evaluated Ulceration to the distal aspect of the left lower extremity x2 was debrided as noted in the clinical panel above. Ulcerative sites demonstrates no erythema, no lymphangitic streaking, no purulent drainage, no malodor, no palpable fluctuance/bogginess noted. Proximal medial ulceration measures 0.5 cm x 0.4 cmx 0.2 cm in the distal medial malleoli are ulceration measures 1.5 cm x 1.2 cm x0.2 cm. Collagen powder and PHMB dressing applied to the proximal ulcerative site. Hydrogel with collagen powder applied to distal ulcerative site with PHMB dressing. She is instructed to change these dressings daily. Tubigrip compression stocking applied to the left lower extremity to aid in edema control. I discussed continued application of Tubigrip compression stocking and ultimately transition to knee-high compression stocking of 20 to 30 mmHg to aid in her edema control. She is instructed to elevate the lower extremities at alltimes of rest. I discussed with her that reduction of the edema is essential inher healing process. Due to her diminished capillary fill time over the last few months LEAS was ordered today due 08/13/22 along with venous studies of bilateral lower extremities. LEAS demonstrates Triphasic and Biphasic Doppler at Right ankle andBiphasic Doppler at Left ankle. Digital incidices normal. Normal PVR. Venous studies demonstrated DVT of Left lower extremity. She was started on Eliquis. Encouraged adequate protein intake and collagen supplement Gregory to aid in her healing. I discussed with her today signs and symptoms of infection to continue to observe. She was instructed that if she notices any increasing redness about the ulcerative sites that moves up the leg, from the wounds, increased foul odorfrom the wounds purulent drainage, or if she experiences fever greater than 101 degree, or any nausea, vomiting, or chills that these are signs of a progressinginfection and she is to report to the ED. She voices understanding of this discussion today. Dressing: Collagen powder PHMB dressing with Tubigrip Wash: Soap and water, pat dry Tissue growth optimization: Collagen powder PHMB dressing Offload: Tubigrip compression stocking, elevating bilateral lower extremities. She is to ensure she does not rest the left lower extremity against the right lower extremity to prevent continued pressure during sleeping Vascular: DP and PT pulses palpable. CFT less than 5 seconds to the digits. LEAS demonstrates no arterial disease. Edema: Tubigrip compression stocking, elevating bilateral lower extremities at all times at rest Infection: No signs of infection Pain: May take [id number] Tylenol for discomfort Host factors: Chronic venous stasis with palpable varicosities to the lower extremity and foot, edema. I answered all the patient's questions. To return to the wound healing center in 1 week or call sooner if the patient has any questions or concerns. Note: [employer] speech recognition pillowcase maker software was used to create portions of this document. Sound-alike and misspelled words, as well as other pillowcase maker errors may be contained in the documentation. 08/20/22 0946 <Electronically signed by Vinay Weiss DPM> Cosigner Signature (if applicable): CC: ~ Signed [facility] Work Phone: 1(302) 402-361202-08-[address] Hoffmann [facility] August 19, 2022 10:49pm Note Date/Time August 19, 2022 1 0:42pm [facility] System Medical Records Department [address] [place] [id number] Emergency Department Summary 08/19/22 MR#: [id number] Acct: [id number] Name: YOSEF JENNINGS Rep #:[id number] : 1940 81 From: Inderjit Hoffmann DO PCP: Dr. Tracey Smith MD Status:D EP ER Location: ED HPI History of Present Illness Chief Complaint: General Illness Narrative Narrative: 81-year-old female presenting with diagnosis of right gastroc DVT. Patient had ultrasound today ordered by Dr. Weiss. She sees him at wound care. Patient states that she has had poor blood flow to her feet. She has had imaging done of her vessels previously but not a DVT study. No history of DVT. [facility] Medical History Arthritis Cellulitis of left ankle Hearing loss Infection of stomach Shoulder pain Home Medications apixaban 5 mg (74 tabs) tablets in a dose pack (Eliquis DVT-PE Treat 30D Start) 5 mg PO BID #74 tabs 08/19/22 [Rx Last Taken Unknown] Allergy/AdvReac Type Severity Reaction Status Date / Time latex Allergy Mild unknown Verified 08/19/22 16:28 Family History Brother Cancer Sister Cancer Other Heart disease Surgical History H/O hysterectomy for benign disease History of partial hysterectomy Social History Smoking Status: Never smoker alcohol intake: never substance use type: does not use what type of physical activity do you participate in: other details: dancing and active job ROS ROS ED Review of Systems ROS Unobtainable: Denies due to encephalopathy Constitutional Constitutional ED: Denies chills or fever(s) Eyes Eyes: Denies change in vision ENT ENT ED: Denies rhinorrhea or sore throat Cardiovascular Cardiovascular: Denies chest pain or palpitations Respiratory/Chest Respiratory/Chest: Denies cough or dyspnea Gastrointestinal Gastrointestinal: Denies abdominal pain or constipation Genitourinary Genitourinary ED: Denies dysuria or hematuria Musculoskeletal Musculoskeletal: Denies arthralgias Integumentary Denies abscess or Abrasions Neurologic Neurologic: Denies headache(s) EXAM Physical Exam Const Vital Signs: 08/19/22 16:28 08/19/22 19:28 08/19/22 16:28 Temperature 96.5 F L Temperature Source Temporal Pulse Rate 99 90 Respiratory Rate 18 16 Respiratory Effort Normal Non-Labored Respiratory Pattern Normal Blood Pressure 164/109 H 160/99 H Blood Pressure Mean 127 119 Pulse Ox 99 99 Oxygen Delivery Method Room Air Room Air General Appearance ED: Negative for pallor HEENT Reports normocephalic, head/scalp atraumatic and moist mucous membranes Eyes PERRL and EOMs intact bilaterally Neck no lymphadenopathy and supple Chest Wall inspection of chest normal and palpation of chest normal Resp normal respiratory effort and clear to auscultation bilaterally Auscultation: Negative for rales, rhonchi or wheezes Cardio regular rate and regular rhythm GI normal to inspection, nondistended, normoactive bowel sounds and non-distended Auscultation: normoactive bowel sounds Palpation: soft Narrative: Deferred Back/Spine no CVA tenderness General Back: Negative for CVA tenderness Cervical Spine: Negative for cervical spine tenderness Extremity Extremity Narrative: Right calf tenderness General Extremety ED: Yes tenderness Neuro oriented x3 and CN's II-XII intact bilaterally Sensorium / Orientation: alert Motor Exam: strength 5/5 throughout Psych mental status grossly normal Attitude: No agitated Skin General Skin Exam: Negative for jaundice or pallor MDM MDM MDM Narrative Medical decision making narrative: Patient diagnosed with right DVT in the gastrocnemius. I spoke with Dr. Weiss and he did recommend putting her on Eliquis. He will follow-up with her in wound care clinic. Discussed risk and benefits of Eliquis at length withthe patient. She acknowledged understanding. She was given first dose in the ER. She was given a starter pack. Discharged in stable condition. Impression: 1. Right gastroc DVT Lab Data Attestation: I reviewed the patient's lab results. Discharge Plan Triage Chief Complaint: General Illness ED Provider: Inderjit Hoffmann Dx/Rx/DC Orders Instructions: ED Deep Vein Thrombosis (DVT), Blood Thinner Pills: Your Guide toUsing them Safely Prescriptions: New Eliquis DVT-PE Treat 30D Start 5 mg (74 tabs) tablets,dose pack 5 mg PO BID Qty: 74 0RF Stand Alone Forms: ED Work / School Excuse Primary Care Provider: Tracey Smith Referrals: Tracey Smith MD [Primary Care Provider] - Vinay Weiss DPM [Med Staff - Active Staff] - 3-5 Days Disposition Disposition: Home, Self Care Discharge Date/Time: 08/19/22 20:31 What to do if you have Problems For any increased pain, shortness of breath, bleeding, nausea or vomiting, chestpain, or any unexpected problems, contact your Primary Care Provider. Call [facility] ([phone]) or report to the closest Emergency Room. Call 911 if necessary. 08/19/22 7559 <Electronically signed by Inderjit Hoffmann DO> Cosigner Signature (if applicable): CC: Dr. Tracey Smith MD ~ Signed [facility] Work Phone: 1(684) 936-966402-02-2023 History and physical note Author Vinay Weiss [facility] August 13, 2022 9:36am Note Date/Time August 13, 2022 9 :22am [facility] [address] [place] [address] H&P Exam - Wound Care 08/13/22 0905 MR#: [id number] Acct: [id number] Name: YOSEF JENNINGS Rep #:[id number] : 1940 81 From: Vinay zimmerman DPM PCP: Dr. Tracey Smith MD Status:R EG RCR Location: History of Present Illness Date of Service: 08/13/22 Chief Complaint: Left lower extremity ulceration x2 History of Wound: Patient is an 81-year-old female who presents to the wound care center with chronic ulceration x2 to the left lower extremity. She states she became very itchy on the inside of the left ankle and scratched creating 2 ulcerative wounds in April 2022. She reported to the ED soon after and was diagnosed with cellulitis and treated with oral antibiotics. She states that over the next few months the wounds however failed to progress in healing. She did fall recently and went to the [facility] ED for stitches in the right hand where she also had her wounds evaluated. ED physician notes chronic venous stasis with normal capillary fill time, however capillary fill time is diminished from previous visit in April. She has been applying bacitracin to the wounds however has not been wearing compression stockings. She continues to work and is on her feet for most of the day. She states when she comes home her legs are swollen and the ulcerative sites ache. [facility] Medical History Arthritis Cellulitis of left ankle Hearing loss Infection of stomach Shoulder pain Home Medications naproxen sodium 220 mg tablet (Aleve) 220 mg PO BID PRN 10/20/21 [History Last Taken Unknown] Allergy/AdvReac Type Severity Reaction Status Date / Time latex Allergy Mild unknown Verified 08/11/22 17:14 Family History Brother Cancer Sister Cancer Other Heart disease Surgical History H/O hysterectomy for benign disease History of partial hysterectomy Social History Smoking Status: Never smoker alcohol intake: never substance use type: does not use what type of physical activity do you participate in: other details: dancing and active job Vital Signs Vital Signs Vital Signs: 08/13/22 08:20 Temperature 97.3 F L Temperature Source Temporal Pulse Rate 97 Blood Pressure 155/87 H Blood Pressure Mean 109 Blood Pressure Source Monitor Physical Exam Const alert, oriented x3 and no apparent distress General Appearance: cooperative HEENT normocephalic Eyes General Eye: normal appearance of both eyes Neck General: normal visual inspection Lymph Lymphatic: no lymphadenopathy noted and no lymphedema noted Resp normal respiratory effort Cardio regular rate and regular rhythm Extremity normal capillary refill, no joint enlargement and no calf tenderness Extremity Narrative: Left lower extremity: DP and PT pulses are palpable. CFT less than 5 seconds tothe digits. Normal temperature gradient. Hair growth absent to the digits/foot. There is varicosities noted to the left lower extremity, periankle, and dorsal foot. +3 pitting edema noted. Ulceration noted to the medial ankle overlying the region of the great saphenous vein. There is hemosiderin deposition to the medial aspect of the leg consistent with venous stasis dermatitis. Right lower extremity: DP and PT pulses are palpable. CFT less than 5 seconds to the digits. Normal temperature gradient. Hair growth is absent to the digits/foot. There is varicosities noted to the right lower extremity, periankle, and dorsal foot. +1 pitting edema noted Skin no rashes or lesions noted, skin turgor normal and no jaundice Wound Narrative: Left lower extremity ulceration x2. Proximal medial ulceration is noted with healthy granular base. No signs of infection. Distal medial ulceration is noted overlying the region of the great saphenous vein with mixed fibrogranular base. No signs of infection. There is a little localized rubor noted about theulcerative sites however there is no increased temperature noted. No purulent drainage, no malodor, no palpable fluctuance/bogginess noted. Neuro moves all extremities Debridement Note Debridement Note Wound debrided: Left lower extremity x2 Laterality: Left Wound Grade/Stage: Blue stage I Type of Debridement: Excisional debridement Anesthesia Used: 5% Lidocaine Gel Depth: Down to and including healthy tissue and in the subcutaneous layer Percentage of wound debrided: 100 Instrument Used: 3mm curette Tissue Removed: Fibrous, devitalized subcutaneous, biofilm, slough Severity: Fat Layer Exposed Amount of bleeding with debridement: Mild Bleeding Controlled with: Compression and gauze Patient tolerated procedure: Patient tolerated procedure well Post-Debridement Measurements and Additional Note: Post-Debridement Measurements/Treatment - Nurse 1 - General Ulcer Assessment Start: 08/13/22 08:18 Freq: Status: Active Protocol: GERALD Activity Type Activity Date Activity User E-sign Co-sign Detail Recorded Client Recorded Date Recorded By Document 08/13/22 08:20 ADOLFO [id number] 08/13/22 08:26 WA 08/13/22 08:20 WC - Today's Visit Information Type of service Initial Visit Arrival Mode Ambulatory Patient Identification Verified (Name & Yes ) Patient Requires Transmission-Based No Precautions Safety Precautions NA Vital Signs Temperature (97.8 F-99.1 F) 97.3 F L Temperature Source Temporal Pulse Rate (60-100) 97 Pulse Location Monitor Blood Pressure (90/60-120/80) 155/87 H Blood Pressure Mean 109 Source Monitor History Since Last Visit- (Skip if this is Patient's initial visit) Left Footwear Regular Shoe Right Footwear Regular Shoe Pain Scale: 0-10 Numeric Is Patient Pain Free? No - Nurse 1 - General Ulcer Measurement Start: 08/13/22 08:18 Freq: Status: Active Protocol: Activity Type Activity Date Activity User E-sign Co-sign Detail Recorded Client Recorded Date Recorded By Document 08/13/22 08:20 WA [id number] 08/13/22 08:26 WA 08/13/22 08:20 Wound Center Nurse 1 #2 Left medial LE -Combined with other wound No -Current Size (cm) - Length 0.7 -Current Size (cm) - Width 0.5 -Current Size (cm) - Depth 0.1 -Total Square Cm 0.35 -Date of Last Picture (Recall this 08/13/22 field) -Photo Taken Yes -Tunneling No -Undermining/Tunneling No -Circular Undermining No -Change in Wound Grade/Stage No -Exudate Amt Medium -Exudate Type Serosanguineous -Wound Margin Distinct, Outline Attached -Granulation Amt Medium (34-66%) -Granulation Quality Mimbres -Slough/Fibrin Yes -Necrosis Amt Medium (34-66%) -Necrotic Tissue Type Adherent Slough -Structure Exposed N/A -Texture (Cristina-wound Skin Appearance) No Abnormality, Assessed -Moisture (Cristina-wound Skin Appearance) No Abnormality, Assessed -Color (Cristina-wound Skin Appearance) No Abnormality, Assessed -Temperature (Critsina-wound Skin No Abnormality Appearance) (Pt Warm) -Tenderness on Palpation (Cristina-wound No Skin Appearance) -Ulcer Cleansing Rinsed/ Irrigated with Saline -Foul Odor after Cleansing No -Anesthetic Used 5% Lidocaine Gel #1 Left medial ankle -Current Size (cm) - Length 1.7 -Current Size (cm) - Width 1.5 -Current Size (cm) - Depth 0.1 -Total Square Cm 2.55 -Date of Last Picture (Recall this 08/13/22 field) -Photo Taken Yes -Tunneling No -Undermining/Tunneling No -Circular Undermining No -Change in Wound Grade/Stage No -Exudate Amt Medium -Exudate Type Serosanguineous -Wound Margin Distinct, Outline Attached -Granulation Amt Medium (34-66%) -Granulation Quality Mimbres,Red -Slough/Fibrin Yes -Necrosis Amt Medium (34-66%) -Necrotic Tissue Type Adherent Slough -Structure Exposed N/A -Texture (Cristina-wound Skin Appearance) No Abnormality, Assessed -Moisture (Cristina-wound Skin Appearance) No Abnormality, Assessed -Color (Cristina-wound Skin Appearance) No Abnormality, Assessed -Temperature (Cristina-wound Skin No Abnormality Appearance) (Pt Warm) -Tenderness on Palpation (Cristina-wound No Skin Appearance) -Ulcer Cleansing Rinsed/ Irrigated with Saline -Foul Odor after Cleansing No -Anesthetic Used 5% Lidocaine Gel Lower Limb Edema Present No Right Calf (cm) 37.5 Right Ankle (cm) 25.1 Left Calf (cm) 36.8 Left Ankle (cm) 26.7 Assessment/Plan Assessment/Plan (1) Bilateral edema of lower extremity: CODE(S): R60.0 - Localized edema (2) Venous insufficiency (chronic) (peripheral): CODE(S): I87.2 - Venous insufficiency (chronic) (peripheral) (3) Non-pressure chronic ulcer of left calf with fat layer exposed: CODE(S): L97.222 - Non-pressure chronic ulcer of left calf with fat layer exposed PLAN: Plan Patient seen and evaluated Ulceration to the distal aspect of the left lower extremity x2 was debrided as noted in the clinical panel above. Ulcerative sites demonstrates no erythema, no lymphangitic streaking, no purulent drainage, no malodor, no palpable fluctuance/bogginess noted. Proximal medial ulceration measures 0.6 cm x 0.5 cmx 0.2 cm in the distal medial malleoli are ulceration measures 1.6 cm x 1.5 cm x0.2 cm. Collagen powder and PHMB dressing applied to the ulcerative sites. Sheis instructed to change these dressings daily. Tubigrip compression stocking applied to the left lower extremity to aid in edema control. I discussed continued application of Tubigrip compression stocking and ultimately transition to knee-high compression stocking of 20 to 30 mmHg to aid in her edema control. She is instructed to elevate the lower extremities at alltimes of rest. I discussed with her that reduction of the edema is essential inher healing process. Due to her diminished capillary fill time over the last few months LEAS was ordered today due 08/13/22 along with venous studies of bilateral lower extremities. Awaiting results. Encouraged adequate protein intake and collagen supplement Gregory to aid in her healing. I discussed with her today signs and symptoms of infection to continue to observe. She was instructed that if she notices any increasing redness about the ulcerative sites that moves up the leg, from the wounds, increased foul odorfrom the wounds purulent drainage, or if she experiences fever greater than 101 degree, or any nausea, vomiting, or chills that these are signs of a progressinginfection and she is to report to the ED. She voices understanding of this discussion today. Dressing: Collagen powder PHMB dressing with Tubigrip Wash: Soap and water, pat dry Tissue growth optimization: Collagen powder PHMB dressing Offload: Tubigrip compression stocking, elevating bilateral lower extremities. She is to ensure she does not rest the left lower extremity against the right lower extremity to prevent continued pressure during sleeping Vascular: DP and PT pulses palpable. CFT less than 5 seconds to the digits. I have ordered lower extremity arterial and venous studies. Edema: Tubigrip compression stocking, elevating bilateral lower extremities at all times at rest Infection: No signs of infection Pain: May take [id number] Tylenol for discomfort Host factors: Chronic venous stasis with palpable varicosities to the lower extremity and foot, edema. I answered all the patient's questions. To return to the wound healing center in 1 week or call sooner if the patient has any questions or concerns. Note: [employer] speech recognition pillowcase maker software was used to create portions of this document. Sound-alike and misspelled words, as well as other pillowcase maker errors may be contained in the documentation. The problems addressed require a low medical decision making level which includes two or more minor problems, a stable chronic illness, or an acute uncomplicated illness or injury. The medical decision making level is low. There is noted low risk of morbidity after considering this treatment plan and diagnostic data. 08/13/22 0936 <Electronically signed by Vinay Weiss DPM> Cosigner Signature (if applicable): CC: ~ Signed [facility] Work Phone: [phone]) 771-277201-31-[address] Walden [facility] August 11, 2022 11:03pm Note Date/Time August 11, 2022 1 1:00pm [facility] Medical Records Department [address] [place] [address] Emergency Department Summary 08/11/22 MR#: [id number] Acct: [id number] Name: YOSEF JENNINGS Rep #:[id number] : 1940 81 From: Shilo Walden MD PCP: Dr. Tracey Smith MD Status:R EG ER Location: ED HPI History of Present Illness Chief Complaint: Laceration Detail of Chief Complaint: Injury right long finger Informant: patient Occured/Mechanism Mechanism/Context: Yes same level fall Comment: Fell coming to work. She landed on her right hand. She sustained laceration proximal to the PIP joint. Onset/Context/Timing Context: Sudden Onset Timing: - (No pain) Current Severity: Mild Maximum Severity: Mild Worsened by: Nothing Relieved by: Nothing Associated Symptoms Associated Symptoms: Negative for Parasthesia, Weakness or Loss of Funtion Narrative Narrative: Patient is an 81-year-old [id number] woman who was entering the building for work. Prior to checking in she fell. She sustained laceration proximal to the PIP joint of her right long finger. She is right-hand dominant. Tetanus is greater than 10 years. She is not on an anticoagulant. She denies allergies to antibiotics. She denies head trauma. She denies loss of conscious. Denies neck pain. Denies paresthesia, anesthesia or motor despair she denied cardiac respiratory symptoms. Denies history of black or maroon-colored stool. Tetanus Immunization: >10 years Prior similar symptoms: No Recent Illness/Hospitalization: No PFSH PFSH Medical History Arthritis Cellulitis of left ankle Hearing loss Infection of stomach Shoulder pain Home Medications naproxen sodium 220 mg tablet (Aleve) 220 mg PO BID PRN 10/20/21 [History Last Taken Unknown] doxycycline monohydrate 100 mg capsule 100 mg PO BID #20 caps 05/11/22 [Rx Last Taken Unknown] cephalexin 500 mg capsule 500 mg PO Q12 #6 CAPSULES 08/11/22 [Rx Last Taken Unknown] Allergy/AdvReac Type Severity Reaction Status Date / Time latex Allergy Mild unknown Verified 08/11/22 17:14 Family History Brother Cancer Sister Cancer Other Heart disease Surgical History H/O hysterectomy for benign disease History of partial hysterectomy Social History Smoking Status: Never smoker alcohol intake: never substance use type: does not use what type of physical activity do you participate in: other details: dancing and active job ROS ROS ED Constitutional Constitutional ED: Denies chills, fever(s), subjective, sweats or weight loss Eyes Eyes: Denies blurry vision, change in vision or diplopia Cardiovascular Cardiovascular: Denies chest pain, palpitations or racing heartbeat Respiratory/Chest Respiratory/Chest: Denies cough, dyspnea or dyspnea on exertion Gastrointestinal Gastrointestinal: Denies melena, nausea or vomiting Musculoskeletal Musculoskeletal: Denies back pain, myalgias or neck pain Integumentary Reports other Details: Laceration proximal PIP joint right long finger Neurologic Neurologic: Denies paresthesias or weakness Hematologic/Lymphatic Hematologic/Lymphatic: Denies easy bleeding or easy bruising EXAM Physical Exam Const Vital Signs: 08/11/22 17:14 Temperature 97 F L Temperature Source Temporal Pulse Rate 102 H Respiratory Rate 14 Blood Pressure 113/91 H Blood Pressure Mean 98 Pulse Ox 96 Oxygen Delivery Method Room Air Positive well nourished, well developed and obese General Appearance ED: well developed and NAD; Negative for cyanotic or diaphoretic Nutritional Appearance: obese HEENT Reports moist mucous membranes HEENT Narrative: DoneEars normal. No evidence of facial trauma. No trauma. No septal deviationhematoma. normocephalic and atraumatic Eyes PERRL and EOMs intact bilaterally Eyes Narrative: No subconjunctival hemorrhage. Resp normal respiratory effort and clear to auscultation bilaterally Cardio regular rate, regular rhythm, S1 normal heart sound, S2 normal heart sound and no murmurs Extremity Negative for normal to inspection Extremity Narrative: 2 cm laceration right long finger. The extensor mechanism is intact. The flexor digitorum superficialis and flexor digitorum profundus are intact. Cap refill is normal. Two-point discrimination is normal. There is no self Duncan noted. Neuro oriented x3, CN's II-XII intact bilaterally, moves all extremities, no focal motor deficits and no sensory deficits noted Sensorium / Orientation: alert Psych mental status grossly normal Skin Skin Narrative: Laceration 2.0 cm right long finger MDM MDM MDM Narrative Medical decision making narrative: Will obtain x-ray to evaluate for foreign body and fracture since she has pain over the PIP joint. Tetanus was updated. After digit was anesthetized the wound was explored. There is no foreign body seen. Presumed removed with irrigation by nursing staff. The extensor commonest tendon was noted. The digit was placed through full extension and flexion. There is no evidence of injury or laceration to the tendon. The wound was explored completely and therewas no foreign body noted. Three-view x-ray of the finger was obtained. There is no evidence of fracture. There was a 1 mm foreign body noted. Since the tendon sheath was violated but not the tendon we will treat with 3-daycourse of cephalexin. Please see procedure note Radiography Diagnostic Testing: Clinical Impression(s) from Imaging Studies Finger X-Ray 08/11/22 20:42 IMPRESSION: Soft tissue swelling along the 3rd PIP joint dorsally. Within the soft tissue, there is a 1.3mm dense foreign body. Electronically Signed: Imer Delaney MD at 21:01 EST Reading Location ID and State: [facility] / [place] , Service support , Procedures Other Procedures Procedure(s): Laceration was Nestabs by local infiltration. Wound was irrigated. As previously scribed wound was explored no foreign body noted. The laceration was closed using 5-0 Ethilon. A total of 5 simple interrupted sutures was placed. Patient tolerated the procedure. She received her first dose of cephalexin in the emergency department. Discharge Plan Triage Chief Complaint: Laceration ED Provider: Shilo Walden Dx/Rx/DC Orders Clinical Impression: Laceration of right middle finger with foreign body w/o damage to nail, Injury due to fall Instructions: ED Laceration, Hand: All Closures Prescriptions: New cephalexin [cephalexin] 500 mg capsule 500 mg PO Q12 Qty: 6 0RF No Action naproxen sodium [Aleve] 220 mg tablet 220 mg PO BID PRN doxycycline monohydrate 100 mg capsule 100 mg PO BID Qty: 20 0RF Primary Care Provider: Tracey Smith Referrals: Tracey Smith MD [Primary Care Provider] - 2 Days for wound check Activity Restrictions/Additional Instructions: 1. Keep finger clean and dry. 2. Take antibiotic until gone 3. Sutures to be removed in 10 to 14 days. Disposition Disposition: Home, Self Care What to do if you have Problems For any increased pain, shortness of breath, bleeding, nausea or vomiting, chestpain, or any unexpected problems, contact your Primary Care Provider. Call [facility] ([phone]) or report to the closest Emergency Room. Call 911 if necessary. 08/11/222302 <Electronically signed by Shilo Walden MD> Cosigner Signature (if applicable): CC: Dr. Tracey Smith MD ~ Signed [facility] Work Phone: 1(278) 496-778801-31-2023 Hospital Discharge instructions Additional Instructions 1. Keep finger clean and dry. 2. Take antibiotic until gone 3. Sutures to be removed in 10 to 14 days.[facility] Work Phone: Discharge summary Author Michael Sánchez [facility] July 31, 2022 3:25am Note Date/Time July 31, 2022 3 :14am [facility] Medical Records Department [address] [place] [address] Emergency Department Summary 07/31/22 MR#: [id number] Acct: [id number] Name: YOSEF JENNINGS Rep #:[id number] : 1940 81 From: Michael Sánchez DO PCP: Dr. Tracey Smith MD Status:R EG ER Location: ED HPI History of Present Illness Chief Complaint: Wound Narrative Narrative: Patient is an 81-year-old female with past medical history of hypertension and left ankle ulcer/wound. She states she was seen approximately 2 months ago at the [facility] where she was placed on antibiotics for her wound. She states she took those without much symptom improvement. She states that she has been working in her shoes been rubbing against her foot and the area is now painfull. She states she is unsure if the area is reinfected and she is unsure if she also needs referral to wound care secondary to her persistent symptoms. She denies any history of diabetes but because she has concern for recurrent infection presents for evaluation [facility] Medical History (Updated 07/31/22 @ 03:[address] Michael Sánchez DO) Arthritis Cellulitis of left ankle Hearing loss Infection of stomach Shoulder pain Home Medications naproxen sodium 220 mg tablet (Aleve) 220 mg PO BID PRN 10/20/21 [History Last Taken Unknown] doxycycline monohydrate 100 mg capsule 100 mg PO BID #20 caps 05/11/22 [Rx Last Taken Unknown] Allergy/AdvReac Type Severity Reaction Status Date / Time latex Allergy Mild unknown Verified 10/20/21 14:43 Family History Brother Cancer Sister Cancer Other Heart disease Surgical History H/O hysterectomy for benign disease History of partial hysterectomy Social History Smoking Status: Never smoker alcohol intake: never substance use type: does not use what type of physical activity do you participate in: other details: dancing and active job ROS ROS ED Constitutional Constitutional ED: Denies chills or fever(s) ENT ENT ED: Denies sore throat Cardiovascular Cardiovascular: Denies chest pain Respiratory/Chest Respiratory/Chest: Denies cough or dyspnea Gastrointestinal Gastrointestinal: Denies abdominal pain, diarrhea, nausea or vomiting Genitourinary Genitourinary ED: Denies dysuria Musculoskeletal Musculoskeletal: Reports other Details: Positive left ankle wound/pain Integumentary Reports other Details: Positive ankle wound ; Denies rash Neurologic Neurologic: Denies headache(s) Hematologic/Lymphatic Hematologic/Lymphatic: Denies easy bleeding or easy bruising EXAM Physical Exam Const Vital Signs: 07/31/22 01:44 07/31/22 01:53 Temperature 98.0 F Temperature Source Temporal Pulse Rate 75 Respiratory Rate 18 Blood Pressure 169/119 H 169/85 H Blood Pressure Mean 135 113 Pulse Ox 97 Oxygen Delivery Method Room Air Positive well nourished, well developed and obese General Appearance ED: well developed Nutritional Appearance: obese Eyes PERRL and EOMs intact bilaterally Neck supple Resp normal respiratory effort and clear to auscultation bilaterally Cardio regular rate and regular rhythm Extremity Extremity Narrative: Left lower extremity is neurovascularly intact. Patient does have mild soft tissue swelling of the left distal lower leg which she states is chronic in nature. There is hemosiderin deposition present as well and 2 ulcers noted. The most distal ulcer along the medial aspect of the distal tibia is approximately 1 x 1 cm in size and dermal layer deep without discharge or secondary changes to suggest infection. There is a punctate proximal ulcer roughly 5 cm proximal from the larger distal ulcer. This also has no active discharge drainage or signs of secondary infection. There is no surrounding erythema or warmth no lymphangitic streaking or crepitance palpated. The capillary refill is approximately 3 seconds of the left foot while it is under 1second in the right. There are no ulcers noted along the right leg as well. The capillary refill is technically normal in the left foot but as it is diminished from the right this does indicate venous stasis or lack of oxygen as a cause of the ulceration Neuro oriented x3 and CN's II-XII intact bilaterally Sensorium / Orientation: alert Psych mental status grossly normal Skin Skin Narrative: Soft tissue changes to the left lower leg as documented above MDM MDM MDM Narrative Medical decision making narrative: Patient presented to the ER hypertensive but has a history of this and otherwisestable vitals. Her physical exam shows no signs of arterial occlusion but thereis slightly decreased capillary refill of the left compared to right and patienthas soft tissue swelling hemosiderin deposition consistent with chronic stasis changes indicating decreased blood flow to the left lower leg. As cap refill istechnically normal and there is no signs of ischemia I doubt patient has an arterial occlusion and she was no physical exam findings to suggest DVT. There is no crepitance or erythema or warmth and therefore my concern for osteomyelitis cellulitis or necrotizing fasciitis is low as well. As patient has concern for infection I checked basic laboratory studies as well as an x-ray. Labs showed no leukocytosis or elevation to the CRP or ESR going against infectious process. X- ray showed no free air or bony destruction to suggest infection. Therefore patient will be referred to wound care as well as podiatryand is otherwise safe for discharge Lab Data Attestation: I reviewed the patient's lab results. Labs: Laboratory Results - last 24 hr 07/31/22 07/31/22 02:15 02:15 WBC 7.0 RBC 4.25 Hgb 12.5 Hct 38.5 MCV 90.6 MCH 29.4 MCHC 32.5 RDW Std Deviation 47.3 H RDW Coeff of David 14.3 Plt Count 139 L MPV 10.7 Immature Gran % (Auto) 0.300 Neut % (Auto) 58.3 Lymph % (Auto) 28.9 Towner % (Auto) 10.2 H Eos % (Auto) 1.6 Baso % (Auto) 0.7 Absolute Neuts (auto) 4.1 Absolute Lymphs (auto) 2.01 Nucleated RBC % 0 Differential Comment SCANNED Platelet Estimate ADEQUATE ESR 13 Sodium 141 Potassium 4.6 Chloride 112 H Carbon Dioxide 25.0 Anion Gap 4 L BUN 39 H Creatinine 1.12 H Estim Creat Clear Calc 36.88 Est GFR (MDRD) Af Amer 60 Est GFR (MDRD) Non-Af 50 L BUN/Creatinine Ratio 34.8 H Glucose 110 H Calcium 9.1 C-React Prot Ext Range < 2.90 Radiography Diagnostic Testing: Clinical Impression(s) from Imaging Studies Ankle X-Ray 07/31/22 02:00 IMPRESSION: There is marked soft tissue swelling suggesting edema. Electronically Signed: Dante Solorzano MD at 3:02 EST , X-ray of the left ankle as interpreted by the emergency medicine physician showssoft tissue swelling without free air or bony destruction to suggest osteomyelitis or fracture Discharge Plan Triage Chief Complaint: Wound ED Provider: Michael Sánchez Dx/Rx/DC Orders Clinical Impression: Venous stasis ulcer of ankle, Hypertension Instructions: Wound Care Prescriptions: No Action naproxen sodium [Aleve] 220 mg tablet 220 mg PO BID PRN doxycycline monohydrate 100 mg capsule 100 mg PO BID Qty: 20 0RF Other Ambulatory Orders: Wound Care Referral (Routine) Timeframe: 1 Week Facility: [facility] - Location: [facility] Ordered By: Dr. Michael Sánchez Primary Care Provider: Tracey Smith Referrals: Tracey Smith MD [Primary Care Provider] - Vinay Weiss DPM [Med Staff - Active Staff] - Activity Restrictions/Additional Instructions: Please contact Dr. Weiss/podiatry to discuss further treatment options for your venous stasis ulcer. You have also been given a referral for [place] woundcare. Please continue to wrap the wound as shown in the ER and return to the ERshould you have any further concerns Disposition Disposition: Home, Self Care What to do if you have Problems For any increased pain, shortness of breath, bleeding, nausea or vomiting, chestpain, or any unexpected problems, contact your Primary Care Provider. Call [facility] ([phone]) or report to the closest Emergency Room. Call 911 if necessary. 07/31/225 <Electronically signed by Michael Sánchez DO> Cosigner Signature (if applicable): CC: Dr. Tracey Smith MD ~ Signed [facility] Work Phone: Discharge summary Author Bharath Mercer [facility] October 03, 2023 11:09am Note Date/Time October 03, 2023 9:3 5am [facility] Medical Records Department [address] [place] [address] Emergency Department Summary 10/03/23 MR#: [id number] Acct: [id number] Name: YOSEF JENNINGS Rep #:[id number] : 1940 83 From: Bharath Mercer MD PCP: Dr. Tracey Smith MD Status:R EG ER Location: ED HPI History of Present Illness Chief Complaint: Flank Pain Informant: patient Narrative Narrative: Patient has noticed pain in her right side for the past 2-3 days. No sudden onset of pain. Seems to be gradual. Has not been worsening but just has been persistent. Pain has not been severe. Hurts with certain movements, she deniesany nausea or vomiting or changes with food or radiation of pain forward into her abdomen or back into her back. No pleuritic discomfort, no chest discomfort, no dyspnea. No other systemic symptoms or pains. She is on Eliquisbecause of a history of of A-fib and DVT. She denies any bleeding recently fromanywhere. 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 She feels like it may be a pulled muscle but somebody told her that she may have a kidney stone and she should have it evaluated. She denies any major colicky nature of the pain. Only abdominal surgery she has had in the past is a remote hysterectomy. She ischronically incontinent of urine and has frequency, she has a pessary and follows with urology for this and has had no urinary changes lately or other urinary symptoms acutely. 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 Shoulder pain Trigger finger Unspecified fall, initial encounter Venous insufficiency (chronic) (peripheral) Home Medications apixaban 5 mg tablet (Eliquis) 5 mg PO BID #60 tabs 12/08/22 [Rx Last Taken Unknown] acetaminophen 650 mg tablet,extended release (Tylenol 8 Hour) 650 mg PO Q8H PRN fever or pain 12/23/22 [History Last Taken Unknown] diltiazem HCl 360 mg capsule,extended release 24 hr (Cardizem CD) 360 mg PO DAILY #90 caps 05/06/23 [Rx Last Taken Unknown] dexamethasone 6 mg tablet 6 mg PO DAILY #5 tabs 06/16/23 [Rx Last Taken Unknown] vibegron 75 mg tablet 75 mg PO DAILY 07/14/23 [History Last Taken Unknown] levothyroxine 25 mcg tablet See Rx Instructions .Route .COMPLEX #90 tabs 07/15/23 [Rx Last Taken Unknown] furosemide 20 mg tablet 20 mg PO DAILY #90 tabs 07/26/23 [Rx Last Taken Unknown] potassium chloride 10 mEq tablet,extended release 10 meq PO DAILY #90 tabs 07/26/23 [Rx Last Taken Unknown] Allergy/AdvReac Type Severity Reaction Status Date / Time latex Allergy Mild unknown Verified 10/03/23 08:53 Family History Brother Cancer Sister Cancer Other Heart disease Surgical History H/O hysterectomy for benign disease History of cataract surgery History of partial hysterectomy Social History Smoking Status: Never smoker alcohol intake: current alcohol intake frequency: holidays/special occasions only substance use type: does not use caffeine: Yes Type: coffee Number of servings: 1 what type of physical activity do you participate in: other details: dancing and active job ROS ROS ED Constitutional Constitutional ED: Denies chills or fever(s) Eyes Eyes: Denies change in vision or diplopia ENT ENT ED: Denies rhinorrhea or sore throat Cardiovascular Cardiovascular: Denies chest pain or palpitations Respiratory/Chest Respiratory/Chest: Reports other Details: Right flank pain see HPI ; Denies cough or dyspnea Gastrointestinal Gastrointestinal: Denies abdominal pain, diarrhea, nausea or vomiting Genitourinary Genitourinary ED: Denies dysuria or hematuria Musculoskeletal Musculoskeletal: Denies back pain or neck pain Integumentary Denies abscess or rash Neurologic Neurologic: Denies headache(s), paresthesias or weakness Psychiatric Psychiatric: Denies anxiety or suicidal thoughts EXAM Physical Exam Const Vital Signs: 10/03/23 08:54 Temperature 97.5 F L Temperature Source Temporal Pulse Rate 83 Respiratory Rate 18 Blood Pressure 164/148 H Blood Pressure Mean 153 Pulse Ox 97 Oxygen Delivery Method Room Air Positive well nourished, well developed and obese Constitutional Narrative: Well-appearing in no distress conversive General Appearance ED: well developed and NAD Nutritional Appearance: obese HEENT Reports moist mucous membranes normocephalic and atraumatic Eyes PERRL and EOMs intact bilaterally Neck full ROM and supple Chest Wall inspection of chest normal and palpation of chest normal Resp normal respiratory effort and clear to auscultation bilaterally GI non-tender and non-distended GI Narrative: Focal tenderness that is normal on inspection in the right lateral lower rib cage around ribs 9-10. No crepitance. No subcostal abdominal or flank tenderness. Auscultation: normoactive bowel sounds Palpation: soft Back/Spine no CVA tenderness General Back: other FROM Extremity normal to inspection General Extremety ED: Negative for edema, pulses abnormal or tenderness General Extremity: Negative for edema or pulses abnormal Neuro oriented x3, CN's II-XII intact bilaterally and no sensory deficits noted Sensorium / Orientation: awake and alert Motor Exam: strength 5/5 throughout Psych mental status grossly normal Skin no rashes or lesions noted and no wounds MDM MDM MDM Narrative Medical decision making narrative: History and exam are very consistent with this being musculoskeletal. I do not think she needs emergent blood or urine test, or advanced imaging of the abdomen/pelvis. Given her age I think it would be reasonable to obtain x-rays of the ribs in this area, which clearly is where the tenderness is, to screen for nontraumatic rib fractures and she agrees that is reasonable. This was done, 5 views my interpretation show no acute fracture and certainly no pneumothorax which she does not have symptoms of. She was given some Tylenol, at this time I recommend supportive care with continue to do Tylenol, topicals are okay to do, she is anticoagulated so would avoid ibuprofen which she knows, and follow-up with her doctor if the week does not result in any improvement, wediscussed reasons to return to the ER she is comfortable with that plan. Radiography Diagnostic Testing: Clinical Impression(s) from Imaging Studies Ribs w/Chest X-Ray 10/03/23 10:11 IMPRESSION: No acute abnormality identified. Electronically Signed: Eliza Delgado MD at 10:35 EDT Reading Location ID and State: [facility] / [place] Tel , Service support , Discharge Plan Triage Chief Complaint: Flank Pain ED Provider: Bharath Mercer Dx/Rx/DC Orders Clinical Impression: Rib pain on right side Instructions: ED Rib Contusion or Minor Fracture Prescriptions: No Action acetaminophen [Tylenol 8 Hour] 650 mg tablet extended release 650 mg PO Q8H PRN (Reason: fever or pain) furosemide 20 mg tablet 20 mg PO DAILY Qty: 90 3RF potassium chloride 10 mEq tablet extended release 10 meq PO DAILY Qty: 90 3RF vibegron 75 mg tablet 75 mg PO DAILY dexamethasone 6 mg tablet 6 mg PO DAILY Qty: 5 0RF Eliquis 5 mg tablet 5 mg PO BID Qty: 60 12RF diltiazem HCl [Cardizem CD] 360 mg capsule,extended release 24hr 360 mg PO DAILY Qty: 90 3RF levothyroxine 25 mcg tablet See Rx Instructions .ROUTE .COMPLEX Qty: 90 1RF Dose Instruction: TAKE 1 TABLET BY MOUTH ONCE DAILY Rx Instructions: Take 25 mcg on 5 days and 50 mcg on 2 days. Primary Care Provider: Tracey Smith Referrals: Tracey Smith MD [Primary Care Provider] - 1 Week if not improving Disposition Disposition: Home, Self Care What to do if you have Problems For any increased pain, shortness of breath, bleeding, nausea or vomiting, chestpain, or any unexpected problems, contact your Primary Care Provider. Call [facility] ([phone]) or report to the closest Emergency Room. Call 911 if necessary. 10/03/23 1109 <Electronically signed by Bharath Mercer MD> Cosigner Signature (if applicable): CC: Dr. Tracey Smith MD ~ Signed [facility] Work Phone: Evaluation note* Diagnosis Onset Date Resolution Status Cellulitis of left ankle acu te [facility] Work Phone: Evaluation note* Diagnosis Onset Date Resolution Status Cellulitis of left ankle acu te Bilateral edema of lower extremity acute 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 Venous insufficiency (chronic) (peripheral) chronic [facility] Work Phone: Evaluation note* Diagnosis Onset Date Resolution Status Cellulitis of left ankle acu te Arrhythmia acute Encounter for removal of sutures acute Laceration of right middle f nikolay with foreign body w/o damage to nail acute Bilateral edema of lower extremity acute 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 Venous insufficiency (chronic) (peripheral) chronic [facility] Work Phone: Evaluation note* Diagnosis Onset Date Resolution Status Arrhythmia acute Encounter for removal of sutures acute Laceration of right middle f nikolay with foreign body w/o damage to nail acute Bilateral edema of lower extremity acute 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 Venous insufficiency (chronic) (peripheral) [facility] Work Phone: Evaluation note* Diagnosis Onset Date Resolution Status Arrhythmia acute Encounter for removal of sutures acute Laceration of right middle f nikolay with foreign body w/o damage to nail acute Bilateral edema of lower extremity acute 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 Venous insufficiency (chronic) (peripheral) chronic Atrial fibrillation acute DVT (deep venous thrombosis) acute Hypertension chronic Bilateral edema of lower extremity acute 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 Venous insufficiency (chronic) (peripheral) chronic [facility] Work Phone: Evaluation note* Diagnosis Onset Date Resolution Status Arrhythmia acute Encounter for removal of sutures acute Laceration of right middle f nikolay with foreign body w/o damage to nail acute Bilateral edema of lower extremity acute 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 Venous insufficiency (chronic) (peripheral) chronic Atrial fibrillation acute DVT (deep venous thrombosis) acute Hypertension chronic Bilateral edema of lower extremity acute 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 Venous insufficiency (chronic) (peripheral) chronic Atrial fibrillation acute Bilateral edema of lower extremity acute DVT (deep venous thrombosis) acute 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 Venous insufficiency (chronic) (peripheral) [facility] Work Phone: Evaluation note* Diagnosis Onset Date Resolution Status Atrial fibrillation chronic DVT (deep venous thrombosis) chronic Hypertension chronic Bilateral edema of lower extremity acute 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 Venous insufficiency (chronic) (peripheral) chronic Bilateral edema of lower extremity acute Atrial fibrillation chronic DVT (deep venous thrombosis) chronic 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 Venous insufficiency (chronic) (peripheral) chronic Atrial fibrillation chronic DVT (deep venous thrombosis) chronic Hypertension [facility] Work Phone: Evaluation note* Diagnosis Onset Date Resolution Status COVID-19 acute Atrial fibrillation chronic Hypertension chronic Hypothyroidism [facility] Work Phone: Evaluation note* Diagnosis Onset Date Resolution Status COVID-19 acute Atrial fibrillation chronic Hypertension chronic Hypothyroidism chronic Atrial fibrillation chronic Bilateral edema of lower extremity chronic DVT (deep venous thrombosis) chronic Hypertension [facility] Work Phone: Hospital Discharge instructions Additional Instructions Please contact Dr. Weiss/podiatry to discuss further treatment options for your venous stasis ulcer. You have also been given a referral for [place] wound care. Please continue to wrap the wound as shown in the ER and return to the ER should [facility] Chief Complaint and Reason for Visit Chief Complaint LEFT ANKLE WOUND/INF ECTION X-Rays wound Reason for Visit Cellulitis of left a nkle Chief Complaint LEFT ANKLE WOUND/INF ECTION X-Rays wound FALL Reason for Visit Cellulitis of left a nkle Chief Complaint LEFT ANKLE WOUND/INF ECTION X-Rays wound FALL NON HEALING WOUND DVT Reason for Visit Cellulitis of left a nkle Bilateral edema of lower extremity Non-pressure chronic ulcer of left calf with fat layer exposed Venous insufficiency (chronic) (peripheral) Chief Complaint LEFT ANKLE WOUND/INF ECTION X-Rays wound FALL DVT [facility] FU - SUTURE REMOVAL Cardiac arrhythmia, unspecified Cardiac arrhythmia, unspecified NON HEALING WOUND Reason for Visit Cellulitis of left a nkle Arrhythmia Encounter for removal of sutures Laceration of right middle finger with foreign body w/o damage to nail Bilateral edema of lower extremity Non-pressure chronic ulcer of left calf with fat layer exposed Venous insufficiency (chronic) (peripheral) Chief Complaint wound FALL DVT [facility] FU - SUTURE REMOVAL Cardiac arrhythmia, unspecified Cardiac arrhythmia, unspecified NON HEALING WOUND Reason for Visit Arrhythmia Encounter for removal of sutures Laceration of right middle finger with foreign body w/o damage to nail Bilateral edema of lower extremity Non-pressure chronic ulcer of left calf with fat layer exposed Venous insufficiency (chronic) (peripheral) Chief Complaint wound FALL DVT [facility] FU - SUTURE REMOVAL Cardiac arrhythmia, unspecified Cardiac arrhythmia, unspecified NON HEALING WOUND ATRIAL FIB (OLEGHE) NON HEALING WOUND Reason for Visit Arrhythmia Encounter for removal of sutures Laceration of right middle finger with foreign body w/o damage to nail Bilateral edema of lower extremity Non-pressure chronic ulcer of left calf with fat layer exposed Venous insufficiency (chronic) (peripheral) Atrial fibrillation DVT (deep venous thrombosis) Hypertension Bilateral edema of lower extremity Non-pressure chronic ulcer of left calf with fat layer exposed Venous insufficiency (chronic) (peripheral) Chief Complaint wound FALL DVT [facility] FU - SUTURE REMOVAL Cardiac arrhythmia, unspecified Cardiac arrhythmia, unspecified NON HEALING WOUND ATRIAL FIB (OLEGHE) NON HEALING WOUND NON HEALING WOUND ATRIAL FIB-FLUTTER Reason for Visit Arrhythmia Encounter for removal of sutures Laceration of right middle finger with foreign body w/o damage to nail Bilateral edema of lower extremity Non-pressure chronic ulcer of left calf with fat layer exposed Venous insufficiency (chronic) (peripheral) Atrial fibrillation DVT (deep venous thrombosis) Hypertension Bilateral edema of lower extremity Non-pressure chronic ulcer of left calf with fat layer exposed Venous insufficiency (chronic) (peripheral) Atrial fibrillation Bilateral edema of lower extremity DVT (deep venous thrombosis) Non-pressure chronic ulcer of left calf with fat layer exposed Venous insufficiency (chronic) (peripheral) Chief Complaint wound FALL DVT [facility] FU - SUTURE REMOVAL Cardiac arrhythmia, unspecified Cardiac arrhythmia, unspecified NON HEALING WOUND ATRIAL FIB (OLEGHE) NON HEALING WOUND NON HEALING WOUND ATRIAL FIB-FLUTTER Amb Documentation Reason for Visit Arrhythmia Encounter for removal of sutures Laceration of right middle finger with foreign body w/o damage to nail Bilateral edema of lower extremity Non-pressure chronic ulcer of left calf with fat layer exposed Venous insufficiency (chronic) (peripheral) Atrial fibrillation DVT (deep venous thrombosis) Hypertension Bilateral edema of lower extremity Non-pressure chronic ulcer of left calf with fat layer exposed Venous insufficiency (chronic) (peripheral) Atrial fibrillation Bilateral edema of lower extremity DVT (deep venous thrombosis) Non-pressure chronic ulcer of left calf with fat layer exposed Venous insufficiency (chronic) (peripheral) Chief Complaint ATRIAL FIB (OLEGHE) NON HEALING WOUND NON HEALING WOUND ATRIAL FIB-FLUTTER Amb Documentation Amb Documentation 3 M FU AFIB/SOB AFIB/SOB Reason for Visit Atrial fibrillation DVT (deep venous thrombosis) Hypertension Bilateral edema of lower extremity Non-pressure chronic ulcer of left calf with fat layer exposed Venous insufficiency (chronic) (peripheral) Bilateral edema of lower extremity Atrial fibrillation DVT (deep venous thrombosis) Non-pressure chronic ulcer of left calf with fat layer exposed Venous insufficiency (chronic) (peripheral) Atrial fibrillation DVT (deep venous thrombosis) Hypertension Chief Complaint HEAD CONGESTION/COUG H COVID TEST/[employer] EM[employer] follow up Reason for Visit COVID-19 Atrial fibrillation Hypertension Hypothyroidism Chief Complaint HEAD CONGESTION/COUG H COVID TEST/[employer] EM[employer] follow up 6 M FU E ORDERS Reason for Visit COVID-19 Atrial fibrillation Hypertension Hypothyroidism Atrial fibrillation Bilateral edema of lower extremity DVT (deep venous thrombosis) Hypertension Chief Complaint HEAD CONGESTION/COUG H COVID TEST/[employer] follow up 6 M FU E ORDERS flank pain Reason for Visit COVID-19 Atrial fibrillation Hypertension Hypothyroidism Atrial fibrillation Bilateral edema of lower extremity DVT (deep venous thrombosis) Hypertension Family History No Family History Records Found Relationship Condition Age at Onset Recorded Date/T reva Not Specified Cardiac disease Unknown brother Malignant neoplasm Unknown sister Malignant neoplasm Unknown Advance Directives No Advanced Directives Records Found Advance Directive Response Recorded Date/ Time Living Will No July 31 1:46am Power of Accounting Administrator No July 31, 2022 1:46am Advance Directive Response Recorded Date/ Time Living Will No August 11 7:28pm Power of Accounting Administrator No August 11, 2022 7:28pm Advance Directive Response Recorded Date/ Time Living Will No August 19 7:28pm Power of Accounting Administrator No August 19, 2022 7:28pm Advance Directive Response Recorded Date/ Time Living Will No August 19 8:28pm Power of Accounting Administrator No August 19, 2022 8:28pm Advance Directive Response Recorded Date/ Time Living Will No October 03, 2023 9:37am Power of Accounting Administrator No October 02 9:37am Summary Purpose Additional Source Comments Care Teams (unrecognized sec tion and content) Team Status: Active Member Role Status Dates Dr. Mounika Magallanes DO Family Provider Active Dr. Tracey Smith MD Primary Care Provider Active Team Status: Inactive Member Role Status Dates Dr. Tracey Smith MD Primary Care Provider, Refer ring Provider Active Veto CARLSON PA Attending Provider Active Team Status: Inactive Member Role Status Dates Dr. Tracey Smith MD Primary Care Provider Active Dr. Yadiel Rogers MD Attending Provider Active Veto CARLSON, [place] Referring Provider Active Team Status: Inactive Member Role Status Dates Dr. Tracey Smith MD Primary Care Provider Active Dr. Michael Sánchez DO Emergency Provider Active Team Status: Inactive Member Role Status Dates Dr. Tracey Smith MD Primary Care Provider Active Dr. Michael Sánchez DO Attending Provider, Emergency Pr ovider Active Team Status: Inactive Member Role Status Dates Dr. Tracey Smith MD Primary Care Provider Active Dr. Shilo Walden MD Emergency Provider Active Team Status: Active Member Role Status Dates Dr. Tracey Smith MD Primary Care Provider Active Dr. Vinay Weiss DPM Attending Provider Active Team Status: Inactive Member Role Status Dates Dr. Tracey Smith MD Primary Care Provider Active Dr. Inderjit Hoffmann DO Emergency Provider Active Team Status: Inactive Member Role Status Dates Dr. Tracey Smith MD Primary Care P rovider, Attending Provider, Referring Provider Active Team Status: Active Member Role Status Dates Dr. Tracey Smith MD Primary Care Provider, Refer ring Provider Active Dr. Stephan Ayala MD Attending Provider Active Team Status: Inactive Member Role Status Dates Dr. Tracey Smith MD Primary Care Provider Active Dr. Shilo Walden MD Attending Provider, Emergency Provi daniel Active Team Status: Inactive Member Role Status Dates Dr. Tracey Smith MD Primary Care Provider Active Dr. Inderjit Hoffmann DO Attending Provider, Emergency Provider Active Team Status: Inactive Member Role Status Dates Dr. Tracey Smith MD Primary Care Provider, Atten ding Provider Active Team Status: Inactive Member Role Status Dates Dr. Tracey Smith MD Primary Care Provider Active Dr. Vinay Weiss DPM Attending Provider Active Team Status: Inactive Member Role Status Dates Dr. Tracey Smith MD Primary Care Provider, Refer ring Provider Active Dr. Chele Locke MD Attending Provider Active Team Status: Active Member Role Status Dates Dr. Tracey Smith MD Primary Care Provider Active Dr. Chele Locke MD Attending Provider Active Team Status: Inactive Member Role Status Dates Dr. Tracey Smith MD Primary Care Provider Active Dr. Chele Locke MD Attending Provider, Referring Pr ovider Active Team Status: Active Member Role Status Dates Dr. Tracey Smith MD Primary Care Provider Active Didi Thibodeaux Attending Provider Active Team Status: Active Member Role Status Dates Dr. Tracey Smith MD Primary Care Provider Active Dr. Chele Locke MD Attending Provider , Referring Provider, Other Provider Active Team Status: Inactive Member Role Status Dates Dr. Tracey Smith MD Primary Care Provider, Refer ring Provider Active Vishal CARLSON, [place] Attending Provider Active Team Status: Inactive Member Role Status Dates Dr. Tracey Smith MD Primary Care Provider Active Dr. Bharath Mercer MD Emergency Provider Active Goals (unrecognized section and content) Goals may be documented in a n alternate sectionGoals may be documented in an alternate sectionGoals may be documented in an alternate sectionGoals may be documented in an alternate sectionGoals may be documented in an alternate sectionGoals may be documented in an alternate sectionGoals may be documented in an alternate sectionGoals may be documented in an alternate sectionGoals may be documented in an alternate sectionGoals may be documented in an alternate sectionGoals may be documented in an alternate sectionGoals may be documented in an alternate section INFORMATION SOURCE (unrecogn ized section and content) DATE CREATED AUTHOR 12/12/2024 [facility] FOR RECORDS PERTAINING TO PATIENTS WHO ARE OR HAVE BEEN ENROLLED IN A CHEMICAL DEPENDENCY/SUBSTANCEABUSE PROGRAM, SOME INFORMATION MAY BE OMITTED. This clinical summary was aggregated from multiple sources. Caution should be exercised in using it in the provision of clinical care. This summary normalizes information from multiple sources, and as a consequence, information in this document may materially change the coding, format and clinical context of patient data. In addition, data may be omitted in some cases. CLINICAL DECISIONS SHOULD BE BASED ON THE PRIMARY CLINICAL RECORDS. [facility]. provides no warranty or guarantee of the accuracy or completeness of information in this document.
== END | disposition home or self-care (01) ==
LOC: CVS 09:55
PROVIDERS: PCP Internal Medicine; Referring Provider Internal Medicine Cardiovascular Disease; Visit Provider Internal Medicine Cardiovascular Disease
DX: R60.0 Localized edema (principal); I10 Essential (primary) hypertension; I49.9 Cardiac arrhythmia, unspecified
CPT/HCPCS: 93306

== ENCOUNTER → 2025-02-07 | Outpatient (CLI) | payer MEDICARE, SELFPAY ==
[2025-02-07 17:21] LABS: Anion Gap 12 (5-15); BUN 22 mg/dL (4-19); BUN/Creat Ratio 20.6 RATIO (10-20); Calcium,Total 9.3 mg/dL (7.6-11.0); Carbon Dioxide 20.1 mmol/L (21.0-32.0); Chloride 106 mmol/L (98-108); Glucose 99 mg/dL (70-99); Potassium 4.6 mmol/L (3.3-5.1)
== END | disposition home or self-care (01) ==
LOC: LAB 16:12
PROVIDERS: PCP Internal Medicine; Referring Provider Internal Medicine Cardiovascular Disease; Visit Provider Internal Medicine Cardiovascular Disease
DX: I10 Essential (primary) hypertension (principal)
CPT/HCPCS: 36415; 80048

== ENCOUNTER → 2025-02-26 | Outpatient (CLI) | payer MEDICARE, SELFPAY ==
--- OUTSIDE RECORDS SUMMARY | 2025-02-26 07:11 | XMS RPT_ITS | CCD ---
Author Organization [facility] Care Team Providers Care Computer Repair Technician Name Role Phone Dr. Tracey Smith Primary [...] Referring Provider [phone] ROBYN Brown Attending Provider [phone] Dr. Tarcey Smith Attending Provider [phone] Dr. Chele Locke Attending Provider [phone] Dr. Tracey Smith Primary Care Provider [phone] Luis, Dr. Webb Referring Provider [phone] ROBYN Brown Attending Provider [phone] Dr. Tracey Smith Attending Provider [phone] Chucky, Dr. Elaine Attending Provider [phone] Luis GUAMAN, Dr. Webb Primary Care Provider Luis GUAMAN, Dr. Webb Referring Provider [phone] Chucky GUAMAN, Dr. Elaine Attending Provider Trip Green RN Attending Provider Unavailabl e Chucky GUAMAN, Dr. Elaine Referring Provider Oleghe, Efewongbe Primary Care Unavailable Oleghe, Efewongbe Referring Unavailable Chucky Chele Attending Unavailable Oleghe, Efewongbe Primary Care Unavailable Oleghe, Efewongbe Referring Unavailable ChuckyChele Attending Unavailable Oleghe, Efewongbe Primary Care Unavailable ChuckyChele Attending Unavailable Oleghe, Efewongbe Referring Unavailable ChuckyChele Attending Unavailable Oleghe, Efewongbe Primary Care Unavailable Oleghe, Efewongbe Referring Unavailable Chucky, Chele Attending Unavailable Oleghe, Efewongbe Primary Care Unavailable Oleghe, Efewongbe Referring Unavailable Oleghe, Efewongbe Primary Care Unavailable Trip Green Attending Unavailable ChuckyChele Attending Unavailable Oleghe, Efewongbe Primary Care Unavailable Chucky, Chele Referring Unavailable Oleghe, Efewongbe Primary Care Unavailable ChuckyTruptid Attending Unavailable Chucky, Chele Referring Unavailable Oleghe, Efewongbe Primary Care Unavailable Chele Locke Referring Unavailable Chele Locke Attending Unavailable Tracey Smith Primary Care Unavailable ChuckyChele decker Referring Unavailable Chele Locke Attending Unavailable Tracey Smith Primary Care Unavailable ChuckyChele decker Attending Unavailable Alessia GUAMAN, Dr. Campa Attending Provider Allergies Allergy Classification Reported Allergen(s) Allergy Type Date of Onset Reaction(s) Facility (15 sources) Latex Allergy to substance 10-20-2021 unknown [facility] (1 source) Latex Drug allergy (disorder) 10-24-2024 [facility] Repository Medications Current Medications Medication Drug Class(es) Dates Sig (Normalized) Sig (Original) 8 hr acetaminophen 650 mg extended release oral tablet (20 sources) Start: 10-05-2022 End: 12-23-2022 take 1 tablet by mouth every eight hours as needed for pain Acetaminophen (Tylenol 8 Hour) 650 mg tablet extended release Active 650 mg PO Q8H as needed for fever or pain December 23, 2022 1:43pm Start: 09-06-2018 End: 10-20-2021 take 1 tablet by mouth every six hours as needed Acetaminophen (Tylenol Extra Strength) 500 mg tablet Discontinued 500 mg PO EVERY 6 HOURS as needed September 06, 2018 1:00am October 20, 2021 2:44pm dapagliflozin 10 mg oral tablet (2 sources) Sodium-Glucose Cotransporter 2 Inhibitor Start: 12-26-2024 take 1 tablet by mouth once daily Dapagliflozin Propanediol (Farxiga) 10 mg tablet Active 10 mg PO daily 90 December 26, 2024 12:00am furosemide 40 mg oral tablet (8 sources) Loop Diuretic Start: 04-27-2024 take 1 tablet by mouth once daily Furosemide 40 mg tablet Active 40 mg PO daily 90 April 27, 2024 12:00am Start: 07-26-2023 End: 04-27-2024 take 1 tablet by mouth once daily Furosemide 20 mg tablet Discontinued 20 mg PO DAILY 90 July 26, 2023 1:00am April 27, 2024 4:25pm Handicap Parking Placard (1 source) Start: 12-26-2024 Handicap Parki ng Placard Active 0 .Route .MEDSUPPLY 1 0 December 26, 2024 12:00am Lifetime (renew 12/26/2029) As directed levothyroxine sodium 0.075 mg oral tablet (20 sources) l-Thyroxi ne Start: 05-03-2024 take 1 tablet by mouth once daily Levothyroxine 75 mcg tablet Active 75 ug PO DAILY 60 May 03, 2024 6:52pm Start: 01-18-2024 End: 05-03-2024 take 1 tablet by mouth once daily Levothyroxine 50 mcg tablet Discontinued 50 ug PO DAILY 60 January 18, 2024 12:54pm May 03, 2024 6:53pm Start: 07-15-2023 End: 01-18-2024 Levothyroxine 25 mcg tablet Discontinued 0 .ROUTE .COMPLEX 90 0 November 18, 2023 12:07pm January 18, 2024 12:54pm Take 25 mcg on 5 days and 50 mcg on 2 days. Start: 10-23-2022 End: 07-15-2023 take 1 tablet by mouth once daily Levothyroxine 25 mcg tablet Discontinued 0 .ROUTE .COMPLEX 60 0 May 05, 2023 12:59pm July 15, 2023 12:42pm TAKE 1 TABLET BY MOUTH ONCE DAILY losartan potassium 25 mg oral tablet (1 source) Angiotensin 2 Receptor Ely Start: 12-28-2024 take 1 tablet by mouth once daily Losartan 25 mg tablet Active 25 mg PO daily 90 December 28, 2024 12:00am 24 hr metoprolol succinate 100 mg extended release oral tablet (3 sources) beta-Adrenergic Ely Start: 10-24-2024 take 1 tablet by mouth once daily Metoprolol Succinate 100 mg tablet extended release 24 hr Active 100 mg PO daily 90 October 24, 2024 12:00am naproxen sodium 220 mg oral tablet (20 sources) Nonsteroidal Anti-inflammatory Drug Start: 10-20-2021 take 1 tablet by mouth twice daily Naproxen Sodium (Aleve) 220 mg tablet Active 220 MG PO TWICE A DAY October 19, 2021 11:00pm Start: 08-04-2018 End: 09-06-2018 take 1 capsule by mouth twice daily as needed Naproxen Sodium (Aleve) 220 mg capsule Discontinued 220 mg PO TWICE A DAY as needed August 04, 2018 1:00am September 06, 2018 4:53pm Start: 08-09-2017 End: 08-04-2018 take 1 capsule by mouth every twelve hours Naproxen Sodium (Aleve) 220 mg capsule Discontinued 220 mg PO Q12H August 09, 2017 1:00am August 04, 2018 2:05pm potassium chloride 20 meq extended release oral tablet (8 sources) Start: 04-27-2024 take 1 tablet by mouth once daily Potassium Chloride 20 mEq tablet extended release Active 20 meq PO daily 90 3 April 27, 2024 12:00am Start: 07-26-2023 End: 04-27-2024 take 1 tablet by mouth once daily Potassium Chloride 10 mEq tablet extended release Discontinued 10 meq PO DAILY 90 July 26, 2023 1:00am April 27, 2024 4:25pm Vibegron (6 sources) Start: 07-14-2023 take 1 tablet by cary th once daily Vibegron 75 mg tablet Active 75 mg PO DAILY July 14, 2023 1:00am Start: 07-14-2023 take 75 mg by mouth once daily Vibegron Active 75 MG PO DAILY July 14, 2023 1:00am Start: 07-14-2023 take 75 mg by mouth once daily Vibegron Active 75 MG PO DAILY July 14, 2023 12:00am Completed/Discontinued Medications Medication Drug Class(es) Dates Sig (Normalized) Sig (Original) amLODIPine 2.5 mg oral tablet (15 sources) Dihydropyridine Calcium Channel Ely Start: 02-11-2021 End: 10-20-2021 take 1 tablet by mouth once daily Amlodipine 2.5 mg tablet Discontinued 2.5 mg PO DAILY 90 February 11, 2021 12:00am October 20, 2021 2:44pm apixaban 5 mg oral tablet (20 sources) Factor Xa Inhibitor Start: 08-19-2022 End: 12-15-2023 take 1 tablet by mouth twice daily Apixaban (Eliquis) 5 mg tablet Discontinued 5 mg PO TWICE A DAY 60 December 08, 2022 10:30am December 15, 2023 8:31am cephalexin 500 mg oral capsule (14 sources) Cephalosporin Antibacterial Start: 08-11-2022 End: 08-13-2022 take 1 capsule by mouth every twelve hours Cephalexin 500 mg capsule Discontinued 500 mg PO EVERY 12 HOURS 6 August 11, 2022 1:00am August 13, 2022 9:28am dexamethasone 6 mg oral tablet (6 sources) Corticosteroid Start: 06-16-2023 End: 10-19-2023 take 1 tablet by mouth once daily Dexamethasone 6 mg tablet Discontinued 6 mg PO DAILY 5 0 June 16, 2023 1:00am October 19, 2023 9:19am dextromethorphan hydrobromide 2 mg/ml / guaiFENesin 20 mg/ml oral solution (15 sources) Uncompetitive Z-bloxla-E-aspartate Receptor Antagonist, Sigma-1 Agonist Start: 08-09-2017 End: 08-04-2018 take 1 mL by mouth once Dextromethorphan- Guaifenesin (Adult Robitussin Peak Cold Dm) 10-100 mg/5 mL liquid Discontinued 10 mL PO ONCE August 09, 2017 1:00am August 04, 2018 2:05pm Start: 08-09-2017 End: 08-04-2018 take 1 mL by mouth once Dextromethorphan-Guaifenesin (Adult Robitussin Peak Cold Dm) 10-100 mg/5 mL liquid Discontinued 10 ML PO ONCE August 09, 2017 1:00am August 04, 2018 2:05pm 24 hr dilTIAZem hydrochloride 360 mg extended release oral capsule (20 sources) Calcium Channel Ely Start: 12-23-2022 End: 10-24-2024 take 1 capsule by mouth once daily, then take 1 capsule by mouth every twenty-four hours Diltiazem Hcl (Cardizem Cd) 360 mg capsule,extended release 24hr Discontinued 360 mg PO DAILY 90 July 10, 2024 9:57am October 24, 2024 4:00pm Start: 10-05-2022 End: 12-23-2022 take 1 capsule by mouth twice daily Diltiazem Hcl 120 mg capsule,extended release 12 hr Discontinued 120 mg PO TWICE A DAY 60 December 08, 2022 10:30am December 23, 2022 2:26pm diphenhydrAMINE hydrochloride 25 mg oral tablet (15 sources) Histamine-1 Receptor Antagonist Start: 08-04-2018 End: 10-20-2021 take 1 tablet by mouth at bedtime as needed Diphenhydramine Hcl (Kristal-[place] Plus Allergy) 25 mg tablet Discontinued 25 mg PO AT BEDTIME as needed August 04, 2018 1:00am October 20, 2021 2:44pm doxycycline monohydrate 100 mg oral capsule (15 sources) Tetracycline-clas s Drug Start: 05-11-2022 End: 08-13-2022 take 1 capsule by mouth twice daily Doxycycline Monohydrate 100 mg capsule Discontinued 100 mg PO TWICE A DAY 20 0 May 11, 2022 12:00am August 13, 2022 9:28am L-Desoxyephedrine 50 mg inhaler (3 sources) Start: 08-09-2017 End: 08-04-2018 L-Desoxyephedrine 50 mg inhaler Discontinued mg INTRANASAL 0 August 09, 2017 1:00am August 04, 2018 2:05pm Start: 08-09-2017 End: 08-04-2018 L-Desoxyephedrine 50 mg inha ler Discontinued mg INTRANASAL August 09, 2017 1:00am August 04, 2018 2:05pm L-desoxyephedrine 50 mg nasa l inhaler (12 sources) Start: 08-09-2017 End: 08-04-2018 L-desoxyephedrine 50 mg nasa l inhaler Discontinued MG INTRANASAL August 09, 2017 1:00am August 04, 2018 2:05pm Start: 08-09-2017 End: 08-04-2018 L-desoxyephedrine 50 mg nasa l inhaler Discontinued MG INTRANASAL August 09, 2017 12:00am August 04, 2018 1:05pm meloxicam 7.5 mg oral tablet (20 sources) Nonsteroidal Anti-inflammatory Drug Start: 09-06-2018 End: 10-20-2021 take 1 tablet by mouth once daily as needed for pain Meloxicam 7.5 mg tablet Discontinued 7.5 mg PO DAILY as needed for osteoarthritis pain 90 1 November 28, 2018 3:18pm October 20, 2021 2:44pm sacubitril 24 mg / valsartan 26 mg oral tablet (2 sources) Angiotensin 2 Receptor Ely Start: 12-26-2024 End: 12-28-2024 Sacubitril-Valsarta n (Entresto) 24-26 mg tablet Discontinued 1 {tbl} PO TWICE A DAY 180 3 December 26, 2024 12:00am December 28, 2024 8:24am Problems Problem Classification Problem Date Documented Da [...] Hypertensive disorder; Translations: [Essential (primary) hypertension] Onset: 12-26-2024 07-31-2022 Chronic Open wounds of extremities (19 sources) Laceration of finger with foreign body; Translations: [Laceration with foreign body of right middle finger without damage to nail, initial encounter] 08-11-2022 Episodic Osteoarthritis (15 sources) Osteoarthritis of joint of right shoulder region; Translations: [Primary osteoarthritis, right shoulder] 10-19-2018 Chronic Other aftercare (12 sources) Surgical follow-up; Translations: [Encounter for removal of sutures] 08-24-2022 Episodic Other aftercare (5 sources) Encounter for removal of sutures; Translations: [Encounter for removal of sutures] 08-24-2022 Episodic Other and ill-defined heart disease (4 sources) Left ventricular systolic dysfunction; Translations: [Other ill-defined heart diseases] 12-26-2024 Chronic Other and ill-defined heart disease (2 sources) Other ill-defined heart diseases; Translations: [Other ill-defined heart diseases] Onset: 12-26-2024 Chronic Other connective tissue disease (15 sources) Triggering of digit; Translations: [Trigger finger, unspecified finger] 10-20-2021 Episodic Other diseases of veins and lymphatics (13 sources) Peripheral venous insufficiency; Translations: [Venous insufficiency (chronic) (peripheral)] 08-13-2022 Episodic Other diseases of veins and lymphatics (13 sources) Venous insufficiency (chronic) (peripheral); Translations: [Venous (peripheral) insufficiency, unspecified] 08-19-2022 Episodic Other ear and sense organ disorders (15 sources) Hearing loss; Translations: [Unspecified hearing loss, unspecified ear] 09-06-2018 Chronic Other lower respiratory disease (4 sources) Rib pain; Translations: [Pleurodynia] 10-03-2023 Episodic Other nervous system disorders (11 sources) Carpal tunnel syndrome; Translations: [Carpal tunnel syndrome, right upper limb] 10-19-2018 Chronic Other nervous system disorders (4 sources) Carpal tunnel syndrome of right wrist; Translations: [Carpal tunnel syndrome, right upper limb] 06-30-2023 Chronic Other screening for suspected conditions (not mental disorders or infectious disease) (9 sources) Raised TSH level; Translations: [Other specified abnormal findings of blood chemistry] 10-22-2022 Episodic Other skin disorders (3 sources) Localized swelling of chest wall; Translations: [Localized swelling, mass and lump, trunk] 01-12-2024 Episodic Phlebitis; thrombophlebitis and thromboembolism (20 sources) Deep venous thrombosis; Translations: [Acute embolism and thrombosis of unspecified deep veins of unspecified lower extremity] Onset: 12-26-2024 10-05-2022 Episodic Residual codes; unclassified (18 sources) Bilateral lower limb edema; Translations: [Localized edema] 08-13-2022 Episodic Residual codes; unclassified (16 sources) Localized edema; Translations: [Edema] Onset: 12-26-2024 08-19-2022 Episodic Skin and subcutaneous tissue infections (19 sources) Cellulitis of left ankle; Translations: [Cellulitis of left lower limb] 05-11-2022 Episodic Superficial injury; contusion (20 sources) Contusion of knee; Translations: [Contusion of right knee, initial encounter] 08-09-2017 Episodic Thyroid disorders (12 sources) Hypothyroidism; Translations: [Hypothyroidism, unspecified] 10-23-2022 Chronic Varicose veins of lower extremity (15 sources) Ankle ulcer; Translations: [Varicose veins of unspecified lower extremity with ulcer of ankle] 07-31-2022 Episodic Viral infection (9 sources) Disease caused by 2019-nCoV; Translations: [COVID-19] 06-16-2023 Episodic Results Test Name Value Interpretation Reference Range Facility Anion gap in Serum or Plasma Ordered By: Chele Locke on 02-07-2025 Anion gap [Moles/Vol] 12 mmol/L 5-15 [facility] BUN/creatinine ratioOrdered By: Chele Locke on 02-07-2025 Urea nitrogen/Creatinine [Mass ratio] 20.6 mg/mg High 10-20 [facility] Basic Metabolic Profile (BMP )on 02-07-2025 BUN/CRE 20.6 RATIO High -20 [facility] Comment on above: Performed By: #### L 500.2500 #### [facility] [address] [place], [address] Calcium [Mass/Vol] 9.3 mg/dL Normal 7.6-11.0 [facility] Comment on above: Performed By: #### L 500.2500 #### [facility] [address] [place], [address] Chloride [Moles/Vol] 106 mmol/L Normal 98-108 [facility] Comment on above: Performed By: #### L 500.2500 #### [facility] [address] [place], [address] CO2 [Moles/Vol] 20.1 mmol/L Low 21.0-32.0 [facility] Comment on above: Performed By: #### L 500.2500 #### [facility] [address] [place], [address] Creatinine [Mass/Vol] 1.08 mg/dL Normal 0.70-1.20 [facility] Comment on above: Performed By: #### L 500.2500 #### [facility] [address] [place], [address] GAP 12 Normal 5-15 [facility] Comment on above: Performed By: #### L 500.2500 #### [facility] [address] [place], [address] GFR/1.73 sq M.predicted among non-blacks MDRD (S/P/Bld) [Vol rate/Area] 51 mL/min/{1.73_m2} Low >60 [facility] Comment on above: Result Comment: mL/m in/1.73m2 CKD-EPI Creatinine Equation (2020) Performed By: #### L 500.2500 #### [facility] [address] [place], [address] Glucose [Mass/Vol] 99 mg/dL Normal 70-99 [facility] Comment on above: Performed By: #### L 500.2500 #### [facility] [address] [place], [address] Potassium [Moles/Vol] 4.6 mmol/L Normal 3.3-5.1 [facility] Comment on above: Performed By: #### L 500.2500 #### [facility] [address] [place], [address] Sodium [Moles/Vol] 139 mmol/L Normal 133-145 [facility] Comment on above: Performed By: #### L 500.2500 #### [facility] [address] [place], [address] Urea nitrogen [Mass/Vol] 22 mg/dL High 4-19 [facility] Comment on above: Performed By: #### L 500.2500 #### [facility] [address] [place], [address] Carbon dioxide, total [Moles /volume] in Central venous bloodOrdered By: Chele Locke on 02-07-2025 CO2 [Moles/Vol] 20.1 mmol/L Low 21.0-32.0 [facility] Chloride assayOrdered By: Krish Locke on 02-07-2025 Chloride [Moles/Vol] 106 mmol/L 98-108 [facility] Glomerular filtration rate ( GFR) estimation/1.73 sq m using serum, plasma, or whole bOrdered By: Chele Locke on 02-07-2025 GFR/1.73 sq M.predicted among non-blacks MDRD (S/P/Bld) [Vol rate/Area] 51 mL/min/{1.73_m2} Low >60 [facility] Comment on above: mL/min/1.73m2 CKD-EP I Creatinine Equation (2020) Potassium measurement (mass/ volume)Ordered By: Chele Locke on 02-07-2025 Potassium (Unsp spec) [Mass/Vol] 4.6 mmol/L 3.3-5.1 [facility] Serum creatinine measurement (mass/volume)Ordered By: Chele Locke on 02-07-2025 Creatinine [Mass/Vol] 1.08 mg/dL 0.70-1.20 [facility] Serum glucose measurement (m ass/volume)Ordered By: Chele Locke on 02-07-2025 Glucose [Mass/Vol] 99 mg/dL 70-99 [facility] Serum or plasma calcium selina urement (mass/volume)Ordered By: Chele Locke on 02-07-2025 Calcium [Mass/Vol] 9.3 mg/dL 7.6-11.0 [facility] Serum or plasma urea nitroge n measurement (mass/volume)Ordered By: Chele Locke on 02-07-2025 Urea nitrogen [Mass/Vol] 22 mg/dL High 4-19 [facility] Sodium levelOrdered By: Himanshu Locke on 02-07-2025 Sodium [Moles/Vol] 139 mmol/L 133-145 [facility] Cardiology Visit Reporton Cardiology Visit Report [facility] [address] [place] [address]. [address] [place] [address] OFFICE VISIT Date of Service: 12/26/24 MR#: [id number] Acct: [id number] Name: YOSEF JENNINGS Rep #: [id number] : 1940 Provider: Dr. Chele Locke MD Age/Sex: 84/F Location: [facility] Status: Signed HPI HPI History of Present Illness Details: This pleasant lady with history of permanent atrial fibrillation, DVT, hypertension and hypothyroidism is here for follow-up visit. She has had an echocardiogram done. It showed LV systolic dysfunction with an LVEF of 35 to 40%. Mild to moderate tricuspid valve regurgitation was noted. Denies any chest pains. No shortness of breath. According to her, she does feel tired and fatigued with exertion lately. Since stopping her diltiazem, her lower extremity edema has much improved. Intake Vital Signs 10/24/24 08:55 12/26/24 14:55 Height 5 ft 6.14 in 5 ft 6.14 in Weight: 244 lb BMI 39.2 BP 140/71 H Blood Pressure Location Lt brachial Position Sitting Respiration 18 Pulse 61 Pulse Source NIBP Intake Visit Reasons: 4 WK FU Allergies latex Allergy (Mild, Verified 10/24/24 14:39) unknown Medications ???Medication ???Instructions ???Recorded ???Confirmed ???Type acetaminophen 650 mg 650 mg PO Q8H PRN fever or pain 11/16/24 History tablet,extended release (Tylenol 8 Hour) vibegron 75 mg tablet 75 mg PO DAILY 07/14/23 11/16/24 H istory apixaban 5 mg tablet (Eliquis) 5 mg PO BID #60 tabs 12/15/23 0503/05 Rx furosemide 40 mg tablet 40 mg PO QDAY #90 tabs 04/27/24 Rx potassium chloride 20 mEq 20 meq PO QDAY #90 tabs 04/27/24 0 11/16/24 Rx tablet,extended release levothyroxine 75 mcg tablet 75 mcg PO DAILY #60 tabs 05/03/24 11/16/24 Rx metoprolol succinate 100 mg 100 mg PO QDAY #90 tabs 10/24/24 0 11/16/24 Rx tablet,extended release 24 hr Ejection fraction %: 35 Have you fallen in the past year?: [...] active job ROS Const Const: Positive for fatigue; Negative for weakness, headache(s) or weight gain ENT ENT: Negative for headache(s), dizziness, Nosebleed/epistaxis or balance problems Cardio Chest Pain: No Palpitations: No Edema: Bilateral (improving since last OV) Muscle aches with walking: None Resp Respiratory: Positive for SOB with activity; Negative for SOB at rest or SOB orthopnea SOB lying down GI GI: Negative nausea, vomiting or heartburn Musc Musc: Negative for muscle aches/ myalgia, muscle weakness, joint pain or balance problems Neuro Neuro: Negative for dizziness, lightheadedness, near syncope, syncope, headache(s) or weakness Endo Endo: Positive for fatigue Cardiology Exam Const Appearance: comfortable and no acute distress Nutritional Appearance: well nourished Neck Neck: no JVD Carotids: Negative bruit Chest Auscultation: Bilateral: Clear to Auscultation Cardio Rate: regular rate Rhythm: irregularly irregular Heart sounds: S1 normal and S2 normal Neuro General: patient alert, patient awake and patient oriented x3 Extremities Lower Extremity Edema: +1: Bilateral Supplemental Info Supplemental Information ECHOCARDIOGRAM 11/02/22: Interpretation Summary The estimated ejection fraction is 55 %. Mild (1+) tricuspid valve insufficiency. The left atrium is severely enlarged. The right atrium is moderately enlarged (more content not included)... Normal [facility] Echo Completeon 12-18-2024 Echo Complete [facility] [address] [place] [address] Echo Complete 12/18/24 1008 MR#: [id number] Acct: [id number] Name: YOSEF JENNINGS Rep #: [id number] : 1940 84 From: Chele Locke MD Attending Dr: Dr. Chele Locke MD Status: REG CLI Ordering Dr: Chele Locke MD Date: 12/18/24 Location: [facility] Sex: F C Admitted: Reason For Study Reason For Study: GENERALIZED EDEMA Procedure This was a 2D Doppler, Color Flow transthoracic echocardiogram. Exam performed in department. Left Ventricle Normal size and thickness. Moderate generalized LV hypokinesis. Estimated LVEF 35-40%. Stage I diastolic dysfunction. Right Ventricle Normal right ventricle. Atria There is mild biatrial dilatation. Mitral Valve Trivial mitral valve insufficiency. Tricuspid Valve Moderate (2+) tricuspid valve insufficiency. Normal pulmonary artery pressure. Aortic Valve Trisinus/trileaflet aortic valve. Pulmonic Valve The pulmonic valve is not well visualized. Mild (1+) pulmonic valve insufficiency. Great Vessels Normal sized aortic root. Pericardium/Pleural No pericardial effusion. MMode/2D Measurements Calculations LVIDd: 4.9 cm IVSd: 0.89 cm Ao root diam: 3.3 cm LVIDs: 3.8 cm LVPWd: 0.93 cm LA dimension: 4.2 cm RVDd: 3.6 cm FS: 21.5 % __ LAV(MOD-bp): 64.0 ml LVAd ap4: 26.8 cm2 SV(MOD-sp4): 28.9 ml LAV(MOD-bp) Indexed: 29.1 ml/m2 LVLd ap4: 7.4 cm SI(MOD-sp4): 13.2 ml/m2 LAV(MOD-sp2): 62.8 ml EDV(MOD-sp4): 79.9 ml LAV(MOD-sp4): 63.0 ml EDV(sp4-el): 82.0 ml LVAs ap4: 20.5 cm2 LVLs ap4: 7.1 cm ESV(MOD-sp4): 51.0 ml ESV(sp4-el): 50.5 ml EF(MOD-sp4): 36.2 % EF(sp4-el): 38.5 % __ SV(sp4-el): 31.6 ml LA A4 area: 22.9 cm2 LA dimension(2D): 3.9 cm __ RA A4 area: 20.7 cm2 TAPSE: 2.0 cm Doppler Measurements Calculations MV E max gagan: 92.9 cm/sec Ao V2 max: 115.5 cm/sec LV V1 max: 96.9 cm/sec Ao max P.3 mmHg LV V1 max P.8 mmHg __ PA V2 max: 63.1 cm/sec TR max gagan: 272.5 cm/sec TR max P.7 mmHg ECHO/Echo Complete Interpretation Summary Moderate generalized LV hypokinesis. Estimated LVEF 35-40%. Stage I diastolic dysfunction. There is mild biatrial dilatation. 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 __ Ordering Physician: Chele Locke Referring Physician: TRACEY SMITH Performed By: Mitzy Lucio RDCS 12/18/24 1323 Date Chele Locke MD CC: Dr. Chele Locke MD; Dr. Tracey Smith MD Date Dictated: 12/18/24 1008 Date Transcribed: 12/18/24 1323 [place]ite Cutter: Signed Normal [facility] Echocardiogram study reportO rdered By: Chele Locke on 12-18-2024 Study report [facility] [address] [place] [id number] Echo Complete 12/18/24 1008 MR#: [id number] Acct: [id number] Name: YOSEF JENNINGS Rep #:[id number] : 1940 84 From: Chele Locke MD Attending Dr: Dr. Chele Locke MD Status: REG CLI Ordering Dr: Chele Locke MD Date: Location: [facility] Sex: F C Admitted: Reason For Study Reason For Study: GENERALIZED EDEMA Procedure This was a 2D Doppler, Color Flow transthoracic echocardiogram. Exam performed in department. Left Ventricle Normal size and thickness. Moderate generalized LV hypokinesis. Estimated LVEF 35-40%. Stage I diastolic dysfunction. Right Ventricle Normal right ventricle. Atria There is mild biatrial dilatation. Mitral Valve Trivial mitral valve insufficiency. Tricuspid Valve Moderate (2+) tricuspid valve insufficiency. Normal pulmonary artery pressure. Aortic Valve Trisinus/trileaflet aortic valve. Pulmonic Valve The pulmonic valve is not well visualized. Mild (1+) pulmonic valve insufficiency. Great Vessels Normal sized aortic root. Pericardium/Pleural No pericardial effusion. MMode/2D Measurements & Calculations LVIDd: 4.9 cm IVSd: 0.89 cm Ao root diam: 3.3 cm LVIDs: 3.8 cm LVPWd: 0.93 cm LA dimension: 4.2 cm RVDd: 3.6 cm FS: 21.5 % LAV(MOD-bp): 64.0 ml LVAd ap4: 26.8 cm2 SV(MOD-sp4): 28.9 ml LAV(MOD-bp) Indexed: 29.1 ml/m2 LVLd ap4: 7.4 cm SI(MOD-sp4): 13.2 ml/m2 LAV(MOD-sp2): 62.8 ml EDV(MOD-sp4): 79.9 ml LAV(MOD-sp4): 63.0 ml EDV(sp4-el): 82.0 ml LVAs ap4: 20.5 cm2 LVLs ap4: 7.1 cm ESV(MOD-sp4): 51.0 ml ESV(sp4-el): 50.5 ml EF(MOD-sp4): 36.2 % EF(sp4-el): 38.5 % ____ SV(sp4-el): 31.6 ml LA A4 area: 22.9 cm2 LA dimension(2D): 3.9 cm ____ RA A4 area: 20.7 cm2 TAPSE: 2.0 cm Doppler Measurements & Calculations MV E max gagan: 92.9 cm/sec Ao V2 max: 115.5 cm/sec LV V1 max: 96.9 cm/sec Ao max P.3 mmHg LV V1 max P.8 mmHg ____ PA V2 max: 63.1 cm/sec TR max gagan: 272.5 cm/sec TR max P.7 mmHg ECHO/Echo Complete Interpretation Summary Moderate generalized LV hypokinesis. Estimated LVEF 35-40%. Stage I diastolic dysfunction. There is mild biatrial dilatation. 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 __ Ordering Physician: Chele Locke Referring Physician: TRACEY SMITH Performed By: Mitzy Lucio RDCS 12/18/24 1323 Date _ Chele Locke MD CC: Dr. Chele Locke MD; Dr. 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 Status: Signed Intake Vital Signs 10/24/24 08:55 [...] CC: Trip Green; Dr. Chele Locke MD Normal [facility] Cardiology Visit Reporton Cardiology Visit Report [facility] [address] [place] [address] OFFICE VISIT Date of Service: 10/24/24 MR#: [id number] Acct: [id number] Name: YOSEF JENNINGS Rep #: [id number] : 1940 Provider: Dr. Chele Locke MD Age/Sex: 84/F Location: 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 Normal [facility] Office Visit Reporton 2023 Office Visit Report [facility] [address] [place] [address] OFFICE VISIT Date of Service: 05/04/24 MR#: [id number] Acct: [id number] Patient: YOSEF JENNINGS Rep #: [id number] : 1940 Provider: Dr. Chele Locke MD Age/Sex: 83/F Location: [facility] Status: Signed Intake Vital Signs 04/27/24 08:38 [...] Cosigner Signature: Date (if applicable) CC: Normal [facility] Basic Metabolic Profile (BMP )on 05-02-2024 BUN/CRE 23.3 RATIO High 10-20 [facility] Comment on above: Performed By: #### L 500.2500 #### [facility] [address] [place], [address] CA,Total 9.3 mg/dL Normal 8.5-10.1 [facility] Comment on above: Performed By: #### L 500.2500 #### [facility] [address] [place], [address] Chloride [Moles/Vol] 105 mmol/L Normal 98-107 [facility] Comment on above: Performed By: #### L 500.2500 #### [facility] [address] [place], [address] CO2 [Moles/Vol] 27.0 mmol/L Normal 21.0-32.0 [facility] Comment on above: Performed By: #### L 500.2500 #### [facility] [address] [place], [address] Creatinine [Mass/Vol] 1.20 mg/dL High 0.55-1.02 [facility] Comment on above: Result Comment: The validity of the calculated GFR GFRAA in patients over 70 years has not been determined. Clinical correlation is essential. Performed By: #### L 500.2500 #### [facility] [address] [place], [address] EST GFR - AA 55 mL/min Low >60 [facility] Comment on above: Result Comment: Afri can Nauruan GFR Calc Performed By: #### L 500.2500 #### [facility] [address] [place], [address] GAP 7 Normal 5-15 [facility] Comment on above: Performed By: #### L 500.2500 #### [facility] [address] [place], [address] GFR/1.73 sq M.predicted among non-blacks MDRD (S/P/Bld) [Vol rate/Area] 46 mL/min/{1.73_m2} Low >60 [facility] Comment on above: Result Comment: Non- GFR Calc Performed By: #### L 500.2500 #### [facility] [address] [place], [address] Glucose [Mass/Vol] 144 mg/dL High 74-106 [facility] Comment on above: Result Comment: Fast ing Glucose result greater than or equal to 126 mg/dL suggests DIABETES MELLITUS per A.D.A. criteria. Performed By: #### L 500.2500 #### [facility] [address] [place], [address] Potassium [Moles/Vol] 3.9 mmol/L Normal 3.5-5.1 [facility] Comment on above: Performed By: #### L 500.2500 #### [facility] [address] [place], [address] Sodium [Moles/Vol] 139 mmol/L Normal 136-145 [facility] Comment on above: Performed By: #### L 500.2500 #### [facility] [address] [place], [address] Urea nitrogen [Mass/Vol] 28 mg/dL High 7-18 [facility] Comment on above: Performed By: #### L 500.2500 #### [facility] [address] [place], [address] Thyroid Stim Hormone (TSH)on 05-02-2024 TSH 12.300 uIU/mL High 0.358-3.740 [facility] Comment on above: Performed By: #### L 501.9520 #### [facility] [address] [place] [place], [address] Cardiology Visit Reporton Cardiology Visit Report [facility] [address] [place] [address] OFFICE VISIT Date of Service: 04/27/24 MR#: [id number] Acct: [id number] Name: YOSEF JENNINGS Rep #: [id number] : 1940 Provider: Dr. Chele Locke MD Age/Sex: 83/F Location: 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 Normal [facility] Basophil percentageOrdered B y: Chele Locke on 07-29-2023 Chloride [Moles/Vol] 109 mmol/L 98-107 [facility] Glucose [Mass/Vol] 115 mg/dL 74-106 [facility] Comment on above: Fasting Glucose resu lt from 100 to 125 mg/dL suggests IMPAIRED HOMEOSTASIS per A.D.A. criteria. Potassium [Moles/Vol] 4.4 mmol/L 3.5-5.1 [facility] Sodium [Moles/Vol] 139 mmol/L 136-145 [facility] - Chemistry and C hemistry - challengeOrdered By: Chele Locke on 07-29-2023 CO2 [Moles/Vol] 26.0 mmol/L 21.0-32.0 [facility] Urea nitrogen/Creatinine [Mass ratio] 19.3 mg/mg 10-20 [facility] No Panel InformationOrdered By: Chele Locke on 07-29-2023 Estimated GFR (MDRD) Amer 56 mL/min >60 [facility] Comment on above: GFR Calc Estimated GFR (MDRD) Non-Af Amer 46 mL/min >60 [facility] Comment on above: Non- GFR Calc Serum or plasma calcium selina urement (mass/volume)Ordered By: Chele Locke on 07-29-2023 Calcium [Mass/Vol] 9.5 mg/dL 8.5-10.1 [facility] Serum or plasma creatinine m easurement (mass/volume)Ordered By: Chele Locke on 07-29-2023 Creatinine [Mass/Vol] 1.19 mg/dL 0.55-1.02 [facility] Comment on above: The validity of the calculated GFR & GFRAA in patients over 70 years has not been determined. Clinical correlation is essential. Serum or plasma urea nitroge n measurement (mass/volume)Ordered By: Chele Locke on 07-29-2023 Urea nitrogen [Mass/Vol] 23 mg/dL 7-18 [facility] Thin prep Papanicolaou smear with manual screeningOrdered By: Chele Locke on 07-29-2023 Thin prep Papanicolaou smear with manual screening 4 5-15 [facility] Absolute lymphocyte countOrd ered By: Tracey Smith on 07-14-2023 Lymphocytes Auto (Unsp spec) [#/Vol] 1.84 10*3/uL 0.83-4.51 [facility] Basophil percentageOrdered B y: Tracey Smith on 07-14-2023 Basophils/100 WBC (Bld) 0.6 % 0-1 [facility] Bilirubin [Mass/Vol] 0.20 mg/dL 0.20-1.00 [facility] Comment on above: For patients on eltr ombopag therapy, use of Dimension Brinson TBIL is not recommended. Chloride [Moles/Vol] 108 mmol/L 98-107 [facility] Cholesterol [Mass/Vol] 192 mg/dL <200 [facility] Comment on above: <200 mg/dL Desirable 200-240 mg/dL Borderline >240 mg/dL High Risk Eosinophils/100 WBC (Bld) 1.9 % 0-5 [facility] Glucose [Mass/Vol] 100 mg/dL 74-106 [facility] Comment on above: Fasting Glucose resu lt from 100 to 125 mg/dL suggests IMPAIRED HOMEOSTASIS per A.D.A. criteria. Neutrophils (Bld) [#/Vol] 5.8 10*3/uL 2.0-7.7 [facility] Neutrophils/100 WBC (Bld) 66.0 % 47-70 [facility] Potassium [Moles/Vol] 4.1 mmol/L 3.5-5.1 [facility] Protein [Mass/Vol] 6.9 g/dL 6.4-8.2 [facility] Sodium [Moles/Vol] 138 mmol/L 136-145 [facility] Triglyceride [Mass/Vol] 100 mg/dL <199 [facility] Comment on above: The drugs N-Acetylcy steine and Metamizole may falsely depress this assay.Serum Triglycerides Reference Interval Normal <150 mg/dL Borderline high 150 - 199 mg/dL High 200 - 499 mg/dL Very High > or = 500 mg/dL WBC (Bld) [#/Vol] 8.7 10*3/uL 4.4-11.0 [facility] Blood erythrocytes count (nu mber/volume)Ordered By: Tracey Smith on 07-14-2023 RBC (Bld) [#/Vol] 4.27 10*6/uL 4.2-5.4 [facility] Blood hemoglobin measurement (mass/volume)Ordered By: Tracey Smith on 07-14-2023 Hemoglobin (Bld) [Mass/Vol] 12.0 g/dL 12.0-15.0 [facility] Blood lymphocytes/100 leukoc ytesOrdered By: Tracey Smith on 07-14-2023 Lymphocytes/100 WBC (Bld) 21.1 % 19-41 [facility] Blood monocytes/100 leukocyt esOrdered By: Tracey Smith on 07-14-2023 Monocytes/100 WBC (Bld) 9.6 % 0-10 [facility] Blood platelet mean volumeOr dered By: Tracey Smith on 07-14-2023 Platelet mean volume (Bld) [Entitic vol] 9.4 fL 6.2-12.0 [facility] Determination of erythrocyte mean corpuscular volume (MCV)Ordered By: Tracey Smith on 07-14-2023 MCV (RBC) [Entitic vol] 91.1 fL 81-99 [facility] Hematocrit Auto (Bld) [Volum e fraction]Ordered By: Tracey Smith on 07-14-2023 Hematocrit (Bld) [Volume fraction] 38.9 % 37-47 [facility] - Chemistry and C hemistry - challengeOrdered By: Tracey Smith on 07-14-2023 ALP [Catalytic activity/Vol] 110 U/L 45-117 [facility] ALT [Catalytic activity/Vol] 22 U/L 13-56 [facility] CO2 [Moles/Vol] 26.0 mmol/L 21.0-32.0 [facility] Free T4 [Mass/Vol] 0.73 ng/dL 0.76-1.46 [facility] Globulin (S) [Mass/Vol] 3.8 g/dL 2.2-4.2 [facility] Urea nitrogen/Creatinine [Mass ratio] 17.9 mg/mg 10-20 [facility] - Hematology and Cell countsOrdered By: Tracey Smith on 07-14-2023 Erythrocyte distribution width (RBC) [Entitic vol] 48.0 fL 35.1-43.9 [facility] Erythrocyte distribution width (RBC) [Ratio] 14.5 % 11.6-14.6 [facility] Immature granulocytes/100 WBC (Bld) 0.800 % 0.0-0.9 [facility] Comment on above: IG% - Immature Granu locytes (promyelocytes, myelocytes and metamyelocytes) > 1% indicates that a LEFT SHIFT is Present. MCH (RBC) [Entitic mass] 28.1 pg 27.0-32.0 [facility] Nucleated RBC/100 WBC (Bld) [Ratio] 0 % 0-5 [facility] MCHC Auto (RBC) [Mass/Vol]Or dered By: Tracey Smith on 07-14-2023 MCHC (RBC) [Mass/Vol] 30.8 g/dL 32-36 [facility] No Panel InformationOrdered By: Tracey Smith on 07-14-2023 Estimated GFR (MDRD) Amer 54 mL/min >60 [facility] Comment on above: GFR Calc Estimated GFR (MDRD) Non-Af Amer 44 mL/min >60 [facility] Comment on above: Non- GFR Calc Thyroid Stimulating Hormone (TSH) 6.74 uIU/mL 0.358-3.74 [facility] Platelets bldOrdered By: Jose Smith on 07-14-2023 Platelets (Bld) [#/Vol] 257 10*3/uL 150-450 [facility] Serum or plasma albumin selina urement (mass/volume)Ordered By: Tracey Smith on 07-14-2023 Albumin [Mass/Vol] 3.1 g/dL 3.2-5.0 [facility] Serum or plasma albumin/glob ulin mass ratioOrdered By: Tracey Smith on 07-14-2023 Albumin/Globulin [Mass ratio] 0.8 {ratio} 0.9-2.4 [facility] Serum or plasma calcium selina urement (mass/volume)Ordered By: Tracey Smith on 07-14-2023 Calcium [Mass/Vol] 9.3 mg/dL 8.5-10.1 [facility] Serum or plasma cholesterol in HDL measurement (mass/volume)Ordered By: Tracey Smith on 07-14-2023 Cholesterol in HDL [Mass/Vol] 58 mg/dL >40 [facility] Comment on above: The drugs N-Acetylcy steine and Metamizole may falsely depress this assay. Reference Range HDL <40 mg/dL Low HDL Cholesterol HDL >or= 60 mg/dL High HDL Cholesterol Serum or plasma cholesterol in VLDL measurement (mass/volume)Ordered By: Tracey Smith on 07-14-2023 Cholesterol in VLDL [Mass/Vol] 20 mg/dL 5-40 [facility] Serum or plasma creatinine m easurement (mass/volume)Ordered By: Tracey Smith on 07-14-2023 Creatinine [Mass/Vol] 1.23 mg/dL 0.55-1.02 [facility] Comment on above: The validity of the calculated GFR & GFRAA in patients over 70 years has not been determined. Clinical correlation is essential. Serum or plasma low density lipoprotein (LDL) cholesterol measurement (mass/volume)Ordered By: Tracey Smith on 07-14-2023 Cholesterol in LDL [Mass/Vol] 114 mg/dL 0-130 [facility] Serum or plasma urea nitroge n measurement (mass/volume)Ordered By: Tracey Smith on 07-14-2023 Urea nitrogen [Mass/Vol] 22 mg/dL 7-18 [facility] Thin prep Papanicolaou smear with manual screeningOrdered By: Tracey Smith on 07-14-2023 Thin prep Papanicolaou smear with manual screening 12 U/L 15-37 [facility] Thin prep Papanicolaou smear with manual screening 4 5-15 [facility] - Microbiology an d Antimicrobial susceptibilityon 06-16-2023 SARS-CoV-2 (COVID-19) RNA JUNIOR+probe Ql (Unsp spec) Detected [facility] No Panel Informationon 06-16 POC Nasal Swab Influenza A,B Not detected [facility] POC Nasal Swab RSV Not detected [facility] Laboratory - Chemistry and C hemistry - challengeOrdered By: Dr. Smith on 10-21-2022 Free T4 [Mass/Vol] 0.58 ng/dL 0.76-1.46 [facility] No Panel InformationOrdered By: Dr. Locke on 10-21-2022 Thyroid Stimulating Hormone (TSH) 9.45 uIU/mL 0.358-3.74 [facility] Absolute lymphocyte countOrd ered By: Michael Sánchez on 07-31-2022 Lymphocytes Auto (Unsp spec) [#/Vol] 2.01 10*3/uL 0.83-4.51 [facility] Basophil percentageOrdered B y: Michael Sánchez on 07-31-2022 Basophils/100 WBC (Bld) 0.7 % 0-1 [facility] Chloride [Moles/Vol] 112 mmol/L 98-107 [facility] Eosinophils/100 WBC (Bld) 1.6 % 0-5 [facility] Glucose [Mass/Vol] 110 mg/dL 74-106 [facility] Comment on above: Fasting Glucose resu lt from 100 to 125 mg/dL suggests IMPAIRED HOMEOSTASIS per A.D.A. criteria. Lactate [Moles/Vol] 0.4 mmol/L 0.4-2.0 [facility] Neutrophils (Bld) [#/Vol] 4.1 10*3/uL 2.0-7.7 [facility] Neutrophils/100 WBC (Bld) 58.3 % 47-70 [facility] Potassium [Moles/Vol] 4.6 mmol/L 3.5-5.1 [facility] Comment on above: Moderate Hemolysis, Result may be falsely increased. Sodium [Moles/Vol] 141 mmol/L 136-145 [facility] WBC (Bld) [#/Vol] 7.0 10*3/uL 4.4-11.0 [facility] Blood erythrocytes count (nu mber/volume)Ordered By: Michael Sánchez on 07-31-2022 RBC (Bld) [#/Vol] 4.25 10*6/uL 4.2-5.4 [facility] Blood hemoglobin measurement (mass/volume)Ordered By: Michael Sánchez on 07-31-2022 Hemoglobin (Bld) [Mass/Vol] 12.5 g/dL 12.0-15.0 [facility] Blood lymphocytes/100 leukoc ytesOrdered By: Michael Sánchez on 07-31-2022 Lymphocytes/100 WBC (Bld) 28.9 % 19-41 [facility] Blood manual differential co mment interpretation (narrative result)Ordered By: Michael Sánchez on 07-31-2022 Manual differential comment Shant (Bld) [Interp] SCANNED [facility] Blood monocytes/100 leukocyt esOrdered By: Michael Sánchez on 07-31-2022 Monocytes/100 WBC (Bld) 10.2 % 0-10 [facility] Blood platelet adequacy dete ction by light microscopyOrdered By: Michael Sánchez on 07-31-2022 Platelets LM Ql (Bld) ADEQUATE ADEQ [facility] Blood platelet mean volumeOr dered By: Michael Sánchez on 07-31-2022 Platelet mean volume (Bld) [Entitic vol] 10.7 fL 6.2-12.0 [facility] Determination of erythrocyte mean corpuscular volume (MCV)Ordered By: Michael Sánchez on 07-31-2022 MCV (RBC) [Entitic vol] 90.6 fL 81-99 [facility] Erythrocyte sedimentation ra teOrdered By: Michael Sánchez on 07-31-2022 ESR (Bld) [Velocity] 13 mm/h 0-30 [facility] Hematocrit Auto (Bld) [Volum e fraction]Ordered By: Michael Sánchez on 07-31-2022 Hematocrit (Bld) [Volume fraction] 38.5 % 37-47 [facility] - Chemistry and C hemistry - challengeOrdered By: Michael Sánchez on 07-31-2022 CO2 [Moles/Vol] 25.0 mmol/L 21.0-32.0 [facility] Urea nitrogen/Creatinine [Mass ratio] 34.8 mg/mg 10-20 [facility] - Hematology and Cell countsOrdered By: Michael Sánchez on 07-31-2022 Erythrocyte distribution width (RBC) [Entitic vol] 47.3 fL 35.1-43.9 [facility] Erythrocyte distribution width (RBC) [Ratio] 14.3 % 11.6-14.6 [facility] Immature granulocytes/100 WBC (Bld) 0.300 % 0.0-0.9 [facility] Comment on above: IG% - Immature Granu locytes (promyelocytes, myelocytes and metamyelocytes) > 1% indicates that a LEFT SHIFT is Present. MCH (RBC) [Entitic mass] 29.4 pg 27.0-32.0 [facility] Nucleated RBC/100 WBC (Bld) [Ratio] 0 % 0-5 [facility] MCHC Auto (RBC) [Mass/Vol]Or dered By: Michael Sánchez on 07-31-2022 MCHC (RBC) [Mass/Vol] 32.5 g/dL 32-36 [facility] No Panel InformationOrdered By: Michael Sánchez on 07-31-2022 Estimated Creatinine Clearance Calc 36.88 ml/min [facility] Estimated GFR (MDRD) Amer 60 mL/min >60 [facility] Comment on above: GFR Calc Estimated GFR (MDRD) Non-Af Amer 50 mL/min >60 [facility] Comment on above: Non- GFR Calc Platelets bldOrdered By: Joseph Sánchez on 07-31-2022 Platelets (Bld) [#/Vol] 139 10*3/uL 150-450 [facility] Serum or plasma C reactive p rotein measurement (mass/volume)Ordered By: Michael Sánchez on 07-31-2022 CRP [Mass/Vol] mg/L 0.0-3.0 [facility] Comment on above: C-Reactive Protein ( CRP) provides useful information for thediagnosis, therapy and monitoring of inflammatory processesand associated diseases. For the evaluation of Relative Riskfor Cardiovascular Disease, a High Sensitivity CRP (HSCRP)should be ordered. Serum or plasma calcium selina urement (mass/volume)Ordered By: Michael Sánchez on 07-31-2022 Calcium [Mass/Vol] 9.1 mg/dL 8.5-10.1 [facility] Serum or plasma creatinine m easurement (mass/volume)Ordered By: Michael Sánchez on 07-31-2022 Creatinine [Mass/Vol] 1.12 mg/dL 0.55-1.02 [facility] Comment on above: The validity of the calculated GFR & GFRAA in patients over 70 years has not been determined. Clinical correlation is essential. Serum or plasma urea nitroge n measurement (mass/volume)Ordered By: Michael Sánchez on 07-31-2022 Urea nitrogen [Mass/Vol] 39 mg/dL 7-18 [facility] Thin prep Papanicolaou smear with manual screeningOrdered By: Michael Sánchez on 07-31-2022 Thin prep Papanicolaou smear with manual screening 4 - [facility] Vital Signs Date Time Vital Sign Value Performing Clinician Faci lity 12-26-2024 14:55-0400 Body height [address] Tracey Smith MD Work Phone: [facility] 12-26-2024 14:55-0400 Body mass index (BMI) [Ratio] 39.2 kg/m2 Dr. Tracey Smith MD Work Phone: [facility] 12-26-2024 14:55-0400 Body weight 110.[address] Tracey Smith MD Work Phone: [facility] 12-26-2024 14:55-0400 Diastolic blood pressure 71 mm[Hg] Dr. Tracey Smith MD Work Phone: [facility] 12-26-2024 14:55-0400 Heart rate 61 /min Dr. Tracey Smith MD Work Phone: [facility] 12-26-2024 14:55-0400 Respiratory rate 18 /min Dr. Tracey Smith MD Work Phone: [facility] 12-26-2024 14:55-0400 Systolic blood pressure 140 mm[Hg] Dr. Tracey Smith MD Work Phone: [facility] 10-27-2024 16:20-0400 Diastolic blood pressure 86 mm[Hg] Dr. Tracey Smith MD Work Phone: [facility] 10-27-2024 16:20-0400 Heart rate 69 /min Dr. Tracey Smith MD Work Phone: [facility] 10-27-2024 16:20-0400 Respiratory rate 18 /min Dr. Tracey Smith MD Work Phone: [facility] 10-27-2024 16:20-0400 Systolic blood pressure 141 mm[Hg] Dr. Tracey Smith MD Work Phone: [facility] 10-24-2024 08:55-0400 Body height [address] Tracey Smith MD Work Phone: [facility] 10-24-2024 08:55-0400 Body mass index (BMI) [Ratio] 40.1 kg/m2 Dr. Tracey Smith MD Work Phone: [facility] 10-24-2024 08:55-0400 Body weight 113.[address] Tracey Smith MD Work Phone: [facility] 10-24-2024 08:55-0400 Diastolic blood pressure 68 mm[Hg] Dr. Tracey Smiht MD Work Phone: [facility] 10-24-2024 08:55-0400 Heart rate 53 /min Dr. Tracey Smith MD Work Phone: [facility] 10-24-2024 08:55-0400 Respiratory rate 18 /min Dr. Tracey Smith MD Work Phone: [facility] 10-24-2024 08:55-0400 Systolic blood pressure 127 mm[Hg] Dr. Tracey Smith MD Work Phone: [facility] 10-03-2023 11:11-0400 Body temperature 97.2 [degF] Dr. Tracey Smith Work Phone: [facility] 10-03-2023 11:11-0400 Diastolic blood pressure 97 mm[Hg] Dr. Tracey Smith Work Phone: [facility] 10-03-2023 11:11-0400 Heart rate 74 /min Dr. Tracey Smith Work Phone: [facility] 10-03-2023 11:11-0400 Respiratory rate 16 /min Dr. Tracey Smith Work Phone: [facility] 10-03-2023 11:11-0400 SaO2% (BldA) [Mass fraction] 96 % Dr. Tracey Smith Work Phone: [facility] 10-03-2023 11:11-0400 Systolic blood pressure 160 mm[Hg] Dr. Tracey Smith Work Phone: [facility] 10-03-2023 08:54-0400 Body height [address] Tracey Smith Work Phone: [facility] 10-03-2023 08:54-0400 Body mass index (BMI) [Ratio] 36.9 kg/m2 Dr. Tracey Smith Work Phone: [facility] 10-03-2023 08:54-0400 Body weight 104.[address] Tracey Smith Work Phone: [facility] 07-26-2023 13:16-0500 Body height 167.[address] Tracey Smith Work Phone: [facility] 07-26-2023 13:16-0500 Body mass index (BMI) [Ratio] 38.4 kg/m2 Dr. Tracey Smith Work Phone: [facility] 07-26-2023 13:16-0500 Body weight 107.[address] Tracey Smith Work Phone: [facility] 07-26-2023 13:16-0500 Diastolic blood pressure 87 mm[Hg] Dr. Tracey Smith Work Phone: [facility] 07-26-2023 13:16-0500 Heart rate 90 /min Dr. Tracey Smith Work Phone: [facility] 07-26-2023 13:16-0500 Respiratory rate 16 /min Dr. Tracey Smith Work Phone: [facility] 07-26-2023 13:16-0500 Systolic blood pressure 144 mm[Hg] Dr. Tracey Smith Work Phone: [facility] 07-14-2023 15:24-0500 Body height 167.[address] Tracey Smith Work Phone: [facility] 07-14-2023 15:24-0500 Body mass index (BMI) [Ratio] 38.4 kg/m2 Dr. Tracey Smith Work Phone: [facility] 07-14-2023 15:24-0500 Body temperature 97.5 [degF] Dr. Tracey Smith Work Phone: [facility] 07-14-2023 15:24-0500 Body weight 107.[address] Tracey Smith Work Phone: [facility] 07-14-2023 15:24-0500 Diastolic blood pressure 82 mm[Hg] Dr. Tracey Smith Work Phone: [facility] 07-14-2023 15:24-0500 Heart rate 91 /min Dr. Tracey Smith Work Phone: [facility] 07-14-2023 15:24-0500 Respiratory rate 16 /min Dr. Tracey Smith Work Phone: [facility] 07-14-2023 15:24-0500 SaO2% (BldA) [Mass fraction] 97 % Dr. Tracey Smith Work Phone: [facility] 07-14-2023 15:24-0500 Systolic blood pressure 140 mm[Hg] Dr. Tracey Smith Work Phone: [facility] 06-16-2023 10:26-0500 Body temperature 98.1 [degF] Dr. Tracey Smith Work Phone: [facility] 06-16-2023 10:26-0500 Diastolic blood pressure 97 mm[Hg] Dr. Tracey Smith Work Phone: [facility] 06-16-2023 10:26-0500 Heart rate 84 /min Dr. Tracey Smith Work Phone: [facility] 06-16-2023 10:26-0500 SaO2% (BldA) [Mass fraction] 95 % Dr. Tracey Smith Work Phone: [facility] 06-16-2023 10:26-0500 Systolic blood pressure 163 mm[Hg] Dr. Tracey Smith Work Phone: [facility] 12-23-2022 13:41-0400 Body height 167.[address] Tracey Smith Work Phone: [facility] 12-23-2022 13:41-0400 Body mass index (BMI) [Ratio] 44.9 kg/m2 Dr. Tracey Smith Work Phone: [facility] 12-23-2022 13:41-0400 Body weight 126.[address] Tracey Smith Work Phone: [facility] 12-23-2022 13:41-0400 Diastolic blood pressure 85 mm[Hg] Dr. Tracey Smith Work Phone: [facility] 12-23-2022 13:41-0400 Heart rate 84 /min Dr. Tracey Smith Work Phone: [facility] 12-23-2022 13:41-0400 Respiratory rate 16 /min Dr. Tracey Smith Work Phone: [facility] 12-23-2022 13:41-0400 Systolic blood pressure 132 mm[Hg] Dr. Tracey Smith Work Phone: [facility] 10-29-2022 08:23-0400 Body temperature 96 [degF] Dr. Tracey Smith Work Phone: [facility] 10-29-2022 08:23-0400 Diastolic blood pressure 96 mm[Hg] Dr. Tracey Smith Work Phone: [facility] 10-29-2022 08:23-0400 Heart rate 89 /min Dr. Tracey Smith Work Phone: [facility] 10-29-2022 08:23-0400 Respiratory rate 16 /min Dr. Tracey Smith Work Phone: [facility] 10-29-2022 08:23-0400 Systolic blood pressure 160 mm[Hg] Dr. Tracey Smith Work Phone: [facility] 10-08-2022 08:26-0400 Body temperature 95.6 [degF] Dr. Tracey Smith Work Phone: [facility] 10-08-2022 08:26-0400 Diastolic blood pressure 99 mm[Hg] Dr. Tracey Smith Work Phone: [facility] 10-08-2022 08:26-0400 Heart rate 78 /min Dr. Tracey Smith Work Phone: [facility] 10-08-2022 08:26-0400 Systolic blood pressure 157 mm[Hg] Dr. Tracey Smith Work Phone: [facility] 10-05-2022 12:59-0400 Body height 167.[address] Tracey Smith Work Phone: [facility] 10-05-2022 12:59-0400 Body mass index (BMI) [Ratio] 33.7 kg/m2 Dr. Tracey Smith Work Phone: [facility] 10-05-2022 12:59-0400 Body weight 94.[address] Tracey Smith Work Phone: [facility] 10-05-2022 12:59-0400 Diastolic blood pressure 93 mm[Hg] Dr. Tracey Smith Work Phone: [facility] 10-05-2022 12:59-0400 Heart rate 94 /min Dr. Tracey Smith Work Phone: [facility] 10-05-2022 12:59-0400 Respiratory rate 16 /min Dr. Tracey Smith Work Phone: [facility] 10-05-2022 12:59-0400 Systolic blood pressure 148 mm[Hg] Dr. Tracey Smith Work Phone: [facility] 10-01-2022 08:20-0400 Respiratory rate 18 /min Dr. Tracey Smith Work Phone: [facility] 09-03-2022 08:29-0500 Body temperature 95.5 [degF] Dr. Tracey Smith Work Phone: [facility] 09-03-2022 08:29-0500 Diastolic blood pressure 90 mm[Hg] Dr. Tracey Smith Work Phone: [facility] 09-03-2022 08:29-0500 Heart rate 102 /min Dr. Tracey Smith Work Phone: [facility] 09-03-2022 08:29-0500 Respiratory rate 18 /min Dr. Tracey Smith Work Phone: [facility] 09-03-2022 08:29-0500 Systolic blood pressure 152 mm[Hg] Dr. Tracey Smith Work Phone: [facility] 08-24-2022 10:56-0500 Body height 167.[address] Tracey Smith Work Phone: [facility] 08-24-2022 10:56-0500 Body mass index (BMI) [Ratio] 34 kg/m2 Dr. Tracey Smith Work Phone: [facility] 08-24-2022 10:56-0500 Body temperature 96.4 [degF] Dr. Tracey Smith Work Phone: [facility] 08-24-2022 10:56-0500 Body weight 95.[address] Tracey Smith Work Phone: [facility] 08-24-2022 10:56-0500 Diastolic blood pressure 62 mm[Hg] Dr. Tracey Smith Work Phone: [facility] 08-24-2022 10:56-0500 Heart rate 63 /min Dr. Tracey Smith Work Phone: [facility] 08-24-2022 10:56-0500 Respiratory rate 16 /min Dr. Tracey Smith Work Phone: [facility] 08-24-2022 10:56-0500 SaO2% (BldA) [Mass fraction] 98 % Dr. Tracey Smith Work Phone: [facility] 08-24-2022 10:56-0500 Systolic blood pressure 124 mm[Hg] Dr. Tracey Smith Work Phone: [facility] 08-19-2022 16:28-0500 Body height 167.[address] Tracey Smith Work Phone: [facility] 08-19-2022 16:28-0500 Body mass index (BMI) [Ratio] 34.8 kg/m2 Dr. Tracey Smith Work Phone: [facility] 08-19-2022 16:28-0500 Body temperature 96.5 [degF] Dr. Tracey Smith Work Phone: [facility] 08-19-2022 16:28-0500 Body weight 97.[address] Tracey Smith Work Phone: [facility] 08-19-2022 16:28-0500 Diastolic blood pressure 99 mm[Hg] Dr. Tracey Smith Work Phone: [facility] 08-19-2022 16:28-0500 Heart rate 90 /min Dr. Tracey Smith Work Phone: [facility] 08-19-2022 16:28-0500 Respiratory rate 16 /min Dr. Trcaey Smith Work Phone: [facility] 08-19-2022 16:28-0500 SaO2% (BldA) [Mass fraction] 99 % Dr. Tracey Smith Work Phone: [facility] 08-19-2022 16:28-0500 Systolic blood pressure 160 mm[Hg] Dr. Tracey Smith Work Phone: [facility] 08-13-2022 08:20-0500 Body temperature 97.3 [degF] Dr. Tracey Smith Work Phone: [facility] 08-13-2022 08:20-0500 Diastolic blood pressure 87 mm[Hg] Dr. Tracey Smith Work Phone: [facility] 08-13-2022 08:20-0500 Heart rate 97 /min Dr. Tracey Smith Work Phone: [facility] 08-13-2022 08:20-0500 Systolic blood pressure 155 mm[Hg] Dr. Tracey Smith Work Phone: [facility] 08-11-2022 17:14-0500 Body height 167.[address] Tracey Smith Work Phone: [facility] 08-11-2022 17:14-0500 Body mass index (BMI) [Ratio] 34.8 kg/m2 Dr. Tracey Smith Work Phone: [facility] 08-11-2022 17:14-0500 Body temperature 97 [degF] Dr. Tracey Smith Work Phone: [facility] 08-11-2022 17:14-0500 Body weight 97.[address] Tracey Smith Work Phone: [facility] 08-11-2022 17:14-0500 Diastolic blood pressure 91 mm[Hg] Dr. Tracey Smith Work Phone: [facility] 08-11-2022 17:14-0500 Heart rate 102 /min Dr. Tracey Smith Work Phone: [facility] 08-11-2022 17:14-0500 Respiratory rate 14 /min Dr. Tracey Smith Work Phone: [facility] 08-11-2022 17:14-0500 SaO2% (BldA) [Mass fraction] 96 % Dr. Tracey Smith Work Phone: [facility] 08-11-2022 17:14-0500 Systolic blood pressure 113 mm[Hg] Dr. Tracey Smith Work Phone: [facility] 07-31-2022 03:12-0500 Heart rate 69 /min Dr. Tracey Smith Work Phone: [facility] 07-31-2022 03:12-0500 Respiratory rate 15 /min Dr. Tracey Smith Work Phone: [facility] 07-31-2022 03:12-0500 SaO2% (BldA) [Mass fraction] 98 % Dr. Tracey Smith Work Phone: [facility] 07-31-2022 01:53-0500 Diastolic blood pressure 85 mm[Hg] Dr. Tracey Smith Work Phone: [facility] 07-31-2022 01:53-0500 Systolic blood pressure 169 mm[Hg] Dr. Tracey Smith Work Phone: [facility] 07-31-2022 01:44-0500 Body height 167.[address] Tracey Smith Work Phone: [facility] 07-31-2022 01:44-0500 Body mass index (BMI) [Ratio] 35.3 kg/m2 Dr. Tracey Smith Work Phone: [facility] 07-31-2022 01:44-0500 Body temperature 98 [degF] Dr. Tracey Smith Work Phone: [facility] 07-31-2022 01:44-0500 Body weight 99.[address] Tracey Smith Work Phone: [facility] 05-11-2022 12:28-0400 Body temperature 98 [degF] Dr. Tracey Smith Work Phone: [facility] 05-11-2022 12:28-0400 Diastolic blood pressure 82 mm[Hg] Dr. Tracey Smith Work Phone: [facility] 05-11-2022 12:28-0400 Heart rate 57 /min Dr. Tracey Smith Work Phone: [facility] 05-11-2022 12:28-0400 Respiratory rate 14 /min Dr. Tracey Simth Work Phone: [facility] 05-11-2022 12:28-0400 SaO2% (BldA) [Mass fraction] 99 % Dr. Tracey Smith Work Phone: [facility] 05-11-2022 12:28-0400 Systolic blood pressure 132 mm[Hg] Dr. Tracey Smith Work Phone: [facility] Encounters Encounter Date Encounter Type Care Provider Facility Start: [facility] Start: 02-07-2025 End: 02-07-[address] Chele Locke MD -Laboratory Work Phone: Start: 02-07-2025 End: 02-07-2025 ambulatory [facility] Facility:[facility] Start: 01-09-2025 Non-patient / Non-visit Dr. Katheryn he MD -[facility] Work Phone: Start: 12-26-2024 End: 12-26-[address] Chele Locke MD -[facility] Work Phone: Start: 12-26-2024 End: 12-26-[address] Tracey Smith MD Work Phone: [facility] Work Phone: Start: 12-18-2024 Non-patient / Non-visit Dr. Chele taylor MD -[facility] Start: 12-18-2024 End: 12-18-[address] Tracey Smith MD Work Phone: [facility] Work Phone: Start: 12-18-2024 End: 12-18-[address] Chele Locke MD -Cardiovascular Services Work Phone: Start: 12-18-2024 End: 12-18-2024 ambulatory Chele Chucky Facility:[facility] Start: 10-27-2024 Non-patient / Non-visit Trip valverde -[facility] Work Phone: Start: 10-27-2024 End: 10-27-[address] Chele Locke MD -[facility] Work Phone: Start: 10-27-2024 End: 10-27-2024 ambulatory Chele Chucky Facility:[facility] Start: 10-24-2024 End: 10-24-[address] Chele Locke MD -[facility] Work Phone: Start: 10-24-2024 End: 10-24-2024 ambulatory Efewongbe Oleghe Facility:[facility] Start: 05-04-2024 ambulatory Efewongbe Oleghe Facili ty:[facility] Start: 05-02-2024 End: 05-02-2024 ambulatory Efewhugotonjeni Careye Facility:[facility] Start: 04-27-2024 End: 04-27-2024 ambulatory Efewongbe Oleghe Facility:[facility] Start: 10-03-2023 End: 10-03-2023 Emergency department patient visit Dr. Tracey Smith Work Phone: [facility]Emergency Department Work Phone: Start: 07-29-2023 End: 07-29-[address] Tracey Smith Work Phone: [facility] Work Phone: Start: 07-29-2023 End: 07-29-[address] Tracey Smith Work Phone: [facility] Work Phone: Start: 07-26-2023 End: 07-26-[address] [facility] Work Phone: Start: 07-14-2023 End: 07-14-[address] Tracey Smith Work Phone: [facility] Work Phone: Start: 07-14-2023 End: 07-14-[address] Tracey Smith Work Phone: [facility] Work Phone: Start: 06-16-2023 End: 06-16-[address] Tracey Smith Work Phone: [facility] Work Phone: Start: 01-04-2023 Non-patient / Non-visit Dr. Reg Smith Work Phone: [facility] Start: 01-04-2023 End: 01-04-[address] Tracey Smith Work Phone: [facility] Work Phone: Start: 01-04-2023 End: 01-04-[address] [facility] Start: 12-23-2022 End: 12-23-[address] Tracey Smith Work Phone: [facility] Work Phone: Start: 11-27-2022 Non-patient / Non-visit Dr. Reg Smith Work Phone: [facility] Work Phone: Start: 11-06-2022 Non-patient / Non-visit Dr. Reg Smith Work Phone: [facility] Start: 11-02-2022 Non-patient / Non-visit Dr. Reg Smith Work Phone: [facility] Start: 11-02-2022 End: 11-02-[address] Tracey Smith Work Phone: [facility] Work Phone: Start: 11-02-2022 End: 11-02-[address] Tracey Smith Work Phone: [facility] Start: 10-29-2022 End: 11-08-[address] Tracey Smith Work Phone: [facility] Work Phone: Start: 10-29-2022 End: 11-08-[address] Tracey Smith Work Phone: [facility] Start: 10-29-[address] Omar Smith Work Phone: [facility] Start: 10-08-2022 End: 10-09-[address] Tracey Smith Work Phone: [facility] Work Phone: Start: 10-08-2022 End: 10-09-[address] Tracey Smith Work Phone: [facility] Start: 10-05-2022 End: 10-05-[address] Tracey Smith Work Phone: [facility] Start: 09-03-2022 End: 09-08-[address] Tracey Smith Work Phone: [facility] Work Phone: Start: 09-03-2022 End: 09-08-[address] Tr[facility] Start: 09-03-[address] Omar [facility] Start: 09-01-2022 End: 09-01-2022 Non-patient / Non-visit Dr. Tracey Smith Work Phone: [facility] Start: 09-01-2022 End: 09-01-[address] Tracey Smith Work Phone: [facility] Work Phone: Start: 09-01-2022 End: 09-01-[address] Tr[facility] Start: 08-24-2022 End: 08-24-[address] Tracey Smith Work Phone: [facility] Start: 08-19-2022 End: 08-19-2022 Emergency department patient [facility] Tracey [facility] Start: 08-19-[address] Omar Smith [facility] Start: 08-11-2022 End: 08-11-2022 Emergency department patient visit Dr. Tracey Smith Work Phone: [facility] Start: 07-31-2022 End: 07-31-2022 Emergency department patient [facility] Tracey [facility] Start: 05-11-2022 End: 05-11-[address] Tr[facility] Procedures Date Procedure Procedure Detail Performing [...] Date Care Activity Detail Author Start: 10-03-2023 [facility] Start: 08-11-2022 Simple repair scalp/neck/ax/genit/trunk 2.5cm/< RPR S/N/AX/GEN/TRNK 2.5CM/< [facility] NM Heart Views W str ess and W radionuclide IV [facility] Patient Education [facility] Work Phone: Patient referral [facility] Work Phone: Referral for further care [facility] Thyroid stimulating hormone measurement [facility] US Heart [facility] Immunizations Immunization Date Immunization Notes Care Provider Fa cilimihaela 04-14-2024 influenza, seasonal, injectable, preservative free Dr. Tracey Smith MD Work Phone: [facility] 04-14-2023 influenza, injectabl e, quadrivalent, preservative free Dr. Tracey Smith Work Phone: [facility] 08-11-2022 tetanus toxoid, redu rosa diphtheria toxoid, and acellular pertussis vaccine, adsorbed Dr. Tracey Smith Work Phone: [facility] 04-29-2022 influenza, injectabl e, quadrivalent, preservative free Dr. Tracey Smith Work Phone: [facility] 04-29-2022 influenza, seasonal, injectable Dr. Tracey Smith Work Phone: [facility] 12-12-2021 Covid (Pfizer) Dr. Tracey Smith Work Phone: [facility] 05-27-2021 Covid (Moderna) Dr. Carolina Smith Work Phone: [facility] 04-18-2021 influenza, injectabl e, quadrivalent, preservative free Dr. Tracey Smith Work Phone: [facility] 04-18-2021 influenza, seasonal, injectable Dr. Tracey Smith Work Phone: [facility] 04-18-2021 influenza, seasonal, injectable, preservative free Dr. Tracey Smith MD Work Phone: [facility] 08-13-2020 Covid (Moderna) Dr. Carolina Smith Work Phone: [facility] 07-16-2020 Covid (Moderna) Dr. Carolina Smith Work Phone: [facility] 04-29-2020 influenza, injectabl e, quadrivalent, preservative free Dr. Tracey Smith Work Phone: [facility] 04-29-2020 influenza, seasonal, injectable Dr. Tracey Smith Work Phone: [facility] 04-29-2020 influenza, seasonal, injectable, preservative free Dr. Tracey Smith MD Work Phone: [facility] 05-02-2019 influenza, injectabl e, quadrivalent, preservative free Dr. Tracey Smith Work Phone: [facility] 05-02-2019 influenza, seasonal, injectable Dr. Tracey Smith Work Phone: [facility] 04-08-2018 influenza, injectabl e, quadrivalent, preservative free Dr. Tracey Smith Work Phone: [facility] 04-08-2018 influenza, seasonal, injectable Dr. Tracey Smith Work Phone: [facility] 04-16-2017 influenza, injectabl e, quadrivalent, preservative free Dr. Tracey Smith Work Phone: [facility] 04-16-2017 influenza, seasonal, injectable Dr. Tracey Smith Work Phone: [facility] 04-27-2016 influenza, injectabl e, quadrivalent, preservative free Dr. Tracey Smith Work Phone: [facility] 04-27-2016 influenza, seasonal, injectable Dr. Tracey Smith Work Phone: [facility] 04-11-2015 influenza, injectabl e, quadrivalent, preservative free Dr. Tracey Smith Work Phone: [facility] 04-11-2015 influenza, seasonal, injectable Dr. Tracey Smith Work Phone: [facility] 04-11-2014 influenza, injectabl e, quadrivalent, preservative free Dr. rTacey Smith Work Phone: [facility] 04-11-2014 influenza, seasonal, injectable Dr. Tracey Smith Work Phone: [facility] Payers Date Payer Category Payer Medicare [id number] 2024 Self-pay [id number] 2024 Private Health Insurance [facility] [id number] 2005 Medicare MEDICARE PART A B [id number] Private Health Insurance [id number] Unknown [id number] Unknown [id number] Unknown [id number] Unknown [id number] Unknown [id number] Unknown [id number] Unknown [id number] Unknown [id number] Unknown [id number] Unknown [id number] Unknown [id number] Social History Date Type Detail Facility Start: 07-31-2022 End: 10-03-2023 Tobacco smoking status NHIS Unknown if ever smoked [facility] Start: 1940 Sex Assigned At Female [facility] Start: 10-19-2023 Tobacco smoking stat us NHIS Never smoked tobacco (finding) [facility] Mental Status Date Assessment Result Facility 08-19-2022 Cognitive function Level Of Cons ciousness Awake;Alert;Appropriate;Follow s Commands [facility] Work Phone: Clinical Notes 08-11-2022 to 12-26-2024 Note Date & Type Note Facility 12-26-2024 Progress note [facility] Services 12-26-2024 Progress note Note Date/Time December 26, 2024 3:12pm [facility] [address] [place] [address] OFFICE VISIT Date of Service: 12/26/24 MR#: [id number] Acct: [id number] Name: YOSEF JENNINGS Rep #: [id number] : 1940 Provider: Dr. Himanshu Locke MD Age/Sex: 84/F Location: [facility] Status: Signed HPI HPI History of Present Illness Details: This pleasant lady with history of permanent atrial fibrillation, DVT, hypertension and hypothyroidism is here for follow-up visit. She has had an echocardiogram done. It showed LV systolic dysfunction with an LVEF of 35 to 40%. Mild to moderate tricuspid valve regurgitation was noted. Denies any chest pains. No shortness of breath. According to her, she does feel tired and fatigued with exertion lately. Since stopping her diltiazem, herlower extremity edema has much improved. Intake Vital Signs 10/24/24 08:55 12/26/24 14:55 Height 5 ft 6.14 in 5 ft 6.14 in Weight: 244 lb BMI 39.2 BP 140/71 H Blood Pressure Location Lt brachial Position Sitting Respiration 18 Pulse 61 Pulse Source NIBP Intake Visit Reasons: 4 WK FU Allergies latex Allergy (Mild, Verified 10/24/24 14:39) unknown Medications ?Medication ?Instructions ?Recorded ?Confirmed ?Type acetaminophen 650 mg 650 mg PO Q8H PRN fever or p ain 12/23/22 11/16/24 History tablet,extended release (Tylenol 8 Hour) vibegron 75 mg tablet 75 mg PO DAILY 07/14/23 05/03/05 History apixaban 5 mg tablet (Eliquis) 5 mg PO BID #60 tabs 11/16/24 Rx furosemide 40 mg tablet 40 mg PO QDAY #90 tabs 04/2711/16/24 Rx potassium chloride 20 mEq 20 meq PO QDAY #90 tabs 04/1111/16/24 Rx tablet,extended release levothyroxine 75 mcg tablet 75 mcg PO DAILY #60 tabs 1 11/16/24 Rx metoprolol succinate 100 mg 100 mg PO QDAY #90 tabs 11/16/24 Rx tablet,extended release 24 hr Ejection fraction %: 35 Have you fallen in the past year?: [...] active job ROS Const Const: Positive for fatigue; Negative for weakness, headache(s) or weight gain ENT ENT: Negative for headache(s), dizziness, Nosebleed/epistaxis or balance problems Cardio Chest Pain: No Palpitations: No Edema: Bilateral (improving since last OV) Muscle aches with walking: None Resp Respiratory: Positive for SOB with activity; Negative for SOB at rest or SOB orthopneaundefinedSOB lying down GI GI: Negative nausea, vomiting or heartburn Musc Musc: Negative for muscle aches/ myalgia, muscle weakness, joint pain or balanceproblems Neuro Neuro: Negative for dizziness, lightheadedness, near syncope, syncope, headache(s) or weakness Endo Endo: Positive for fatigue Cardiology Exam Const Appearance: comfortable and no acute distress Nutritional Appearance: well nourished Neck Neck: no JVD Carotids: Negative bruit Chest Auscultation: Bilateral: Clear to Auscultation Cardio Rate: regular rate Rhythm: irregularly irregular Heart sounds: S1 normal and S2 normal Neuro General: patient alert, patient awake and patient oriented x3 Extremities Lower Extremity Edema: +1: Bilateral Supplemental Info Supplemental Information ECHOCARDIOGRAM 11/02/22: Interpretation Summary The estimated ejection fraction is 55 %. Mild (1+) tricuspid valve insufficiency. The left atrium is severely enlarged. The right atrium is moderately enlarged. STRESS TEST 12/11/2022: Rest and stress SPECT Cardiolite nuclear imaging status post realignment, normalization, and attenuation correction demonstrate normal perfusion of all wall segments. There is end systolic thickening and brightening. The gated Cardiolite study demonstrates myocardial thickening and inward wall motion. Thereported LVEF is 60%. Impression: 1. Pharmacologic (Regadenoson) evaluation 2. Peak pharmacologic ECG with no ischemic changes. 3. Rare PVC noted. 5. Rest and stress SPECT Cardiolite nuclear imaging demonstrate relative uniform tracer uptake and myocardial perfusion appearing within normal limits. 6. The gated Cardiolite study reports an LVEF of 60%. EXTREMITY ARTERIAL STUDY 08/19/2022: Interpretation Summary Triphasic and biphasic Doppler waveforms are noted at ankle level on the right. Triphasic Doppler waveforms are noted at ankle level on the left. Pulse-volume recordings appear satisfactory at ankle and digital level bilaterally. Resting ankle-brachial indices are normal bilaterally. Digital- brachial indices are normal bilaterally. There is no evidence of significant arterial occlusive disease in the lower extremities bilaterally. Assessment and Plan Assessment and Plan (1) Atrial fibrillation: Status: Chronic Plan: Apixaban for anticoagulation. Ventricular rate controlled with metoprolol. (2) Left ventricular systolic dysfunction (LVSD), NYHA class 2: Status: Chronic Plan: Recommended coronary angiography for ruling out ischemic heart disease as a cause of her LV systolic dysfunction. However she wishes to have noninvasive testing done. Will check Lexiscan stress Myoview. Continue metoprolol ER. Start on Entresto. Farxiga. (3) Hypertension: Status: Chronic Plan: Furosemide and metoprolol. Start on Entresto. (4) DVT (deep venous thrombosis): Status: Chronic Plan: Continue on Eliquis. Follow as per internal medicine. (5) Bilateral edema of lower extremity: Status: Chronic Plan: History of left lower extremity DVT. Edema much improved after stopping diltiazem. Continue furosemide. Plan Details Follow Up: 3 Months Coding Level of Care Code Off vis,est,level 4 Diagnoses Atrial fibrillation I48.91 Left ventricular systolic dysfunction (LVSD), NYHA class 2 I51.89 Hypertension I10 DVT (deep venous thrombosis) I82.409 Bilateral edema of lower extremity R60.0 Coding Level of Care Code Off vis,est,level 4 Diagnoses Atrial fibrillation I48.91 Left ventricular systolic dysfunction (LVSD), NYHA class 2 I51.89 Hypertension I10 DVT (deep venous thrombosis) I82.409 Bilateral edema of lower extremity R60.0 Clinical Quality Measures Falls Risk Screening/Assistive Devices Have you fallen in the past year?: No Cardiac Ejection fraction %: 35 12/26/24 1512 <Electronically signed by Chele Locke MD> Date _ Chele Locke MD Cosigner Signature: Date (if applicable) CC: Dr. Tracey Smith MD ~ [facility] Work Phone: 1(426) 481-837504-15-2025 Evaluation note* Diagnosis Onset Date Resolution Status Admit Date Atrial fibrillation chronic October 24, 2024 2:31pm Bilateral edema of lower extremity chronic October 24, 2024 2:31pm DVT (deep venous thrombosis) chronic October 24, 2024 2:31pm Hypertension chronic October 24, 2024 2:31pm [facility] Work Phone: 1(274) 559-541504-15-2025 Evaluation note* Diagnosis Onset Date Resolution Status Admit Date Atrial fibrillation chronic October 24, 2024 2:31pm Bilateral edema of lower extremity chronic October 24, 2024 2:31pm DVT (deep venous thrombosis) chronic October 24, 2024 2:31pm Hypertension chronic October 24, 2024 2:31pm Atrial fibrillation chronic December 26, 2024 2:25pm Bilateral edema of lower extremity chronic December 26, 2024 2:25pm DVT (deep venous thrombosis) chronic December 26, 2024 2:25pm Hypertension chronic December 26 2:25pm Left ventricular systolic dysfunction (LVSD), NYHA class 2 chronic December 26, 2024 2:25pm [facility] Work Phone: 1(728) 654-616704-20-2023 Progress note Author Vinay Weiss [facility] October 29, 2022 12:36pm Note Date/Time October 29, 2022 8:1 5am [facility] [address] [place] [address] Progress Note - Wound Care 10/29/22 0815 MR#: [id number] Acct: [id number] Name: YOSEF JENNINGS Rep #:[id number] : 1940 82 From: Vinay zimmerman DPM [...] did fall recently and went to the [facility] ED for stitches in the right hand [...] Start: 10/22/22 08:23 Freq: Status: Active Protocol: GERADL Activity Type Activity Date Activity User E-sign Co-sign Detail Recorded Client Recorded Date Recorded By Document 10/22/22 08:23 [facility] [id number] 10/22/22 08:37 [facility] 10/22/22 08:23 WC - Today's Visit Information Type of service Follow-up Visit (Physician/NURSE PRACTICAL ) Arrival Mode Ambulatory Transfer Assistance None [...] By Document 10/22/22 08:23 [facility] [id number] 10/22/22 08:37 [facility] 10/22/22 08:23 [...] Date Recorded By Document 10/22/22 09:15 PL [id number] 10/23/22 07:12 PL 10/22/22 09:15 Wound Center [...] Disc -Expiration Date 08/12/27 -Product Lot Number [id number] -Percent Used 100 -Bleeding Controlled with [...] Date Recorded By Document 10/22/22 09:31 [facility] [id number] 10/22/22 09:32 [facility] 10/22/22 09:31 Wound Care [...] No signs of infection Pain: May take zptt-kqj-nrueagu Tylenol for discomfort Host factors: Chronic venous [...] concerns or haveproblems with future wounds. 10/29/22 3951 <Electronically signed by Vinay Weiss DPM> Cosigner Signature (if applicable): CC: ~ Signed [facility] Work Phone: [phone]) 979-974204-13-2023 Progress note Author Vinay Weiss [facility] October 22, 2022 12:46pm Note Date/Time October 22, 2022 8:4 3am [facility] [address] [place] [address] Progress Note - Wound Care 10/22/22 0836 MR#: [id number] Acct: [id number] Name: YOSEF JENNINGS Rep #:[id number] : 1940 82 From: Vinay zimmerman DPM [...] did fall recently and went to the [facility] ED for stitches in the right hand [...] No signs of infection Pain: May take ptwv-any-fmctgzz Tylenol for discomfort Host factors: Chronic venous stasis with palpable varicosities to the lower extremity and foot, edema. ? I answered all the patient's questions.? To return to the wound healing center in 1 week or call sooner if the patient has any questions or concerns. 10/22/22 1246 <Electronically signed by Vinay Weiss DPM> Cosigner Signature (if applicable): CC: ~ Signed [facility] Work Phone: 1(581) 730-264103-30-2023 Progress note Author Vinay Weiss [facility] October 08, 2022 8:58am Note Date/Time October 08, 2022 8:2 2am [facility] [address] [place] [address] Progress Note - Wound Care 10/08/22 0822 MR#: [id number] Acct: [id number] Name: YOSEF JENNINGS Rep #:[id number] : 1940 82 From: Vinay zimmerman DPM [...] did fall recently and went to the [facility] ED for stitches in the right hand [...] Date Recorded By Document 09/10/22 08:55 ML [id number] 09/10/22 09:01 ML Document 09/17/22 08:29 AK [id number] 09/17/22 08:35 AK Document 09/24/22 08:23 AK [id number] 09/24/22 08:25 AK Document 10/01/22 08:20 JF Desktop 10/01/22 08:22 JF 09/10/22 09/17/22 09/24/22 08:55 08:29 08:23 - Today's Visit Information Type of service Follow-up Visit Follow-up Visit Follow-up Visit (Physician/NURSE PRACTICAL (Physician/NURSE PRACTICAL (Physician/NURSE PRACTICAL ) ) ) Arrival Mode Ambulatory Ambulatory [...] Visit Information Type of service Follow-up Visit (Physician/NURSE PRACTICAL ) Arrival Mode Ambulatory Transfer Assistance Patient [...] Patient Pain Free? Yes WC - Nurse 1 - General Ulcer Measurement Start: 09/10/22 08:54 Freq: Status: Active Protocol: Activity Type Activity Date Activity User E-sign Co-sign Detail Recorded Client Recorded Date Recorded By Document 09/10/22 08:55 ML [id number] 09/10/22 09:01 ML Document 09/17/22 08:29 AK [id number] 09/17/22 08:35 AK Document 09/24/22 08:23 AK [id number] 09/24/22 08:25 AK Document 10/01/22 08:20 JF [...] Present (0 Large (67-100%) %) -Granulation Quality [place],Red [place] -Slough/Fibrin No No Yes -Necrosis Amt None [...] Date Recorded By Document 09/10/22 11:26 PL [id number] 09/10/22 11:29 PL Document 09/17/22 11:34 PL [id number] 09/17/22 11:36 PL Document 09/24/22 11:36 PL [id number] 09/24/22 11:37 PL Document 10/01/22 13:21 PL [id number] 10/01/22 13:23 PL 09/10/22 09/17/22 09/24/22 11:26 [...] Date 06/11/27 06/11/27 07/12/27 -Product Lot Number [id number] 007 004 -Percent Used 100 100 [...] Disc -Expiration Date 07/12/27 -Product Lot Number [id number] -Percent Used 100 -Bleeding Controlled with [...] Date Recorded By Document 09/10/22 09:17 ML [id number] 09/10/22 09:20 ML Document 09/17/22 09:27 RB [id number] 09/17/22 09:29 RB Document 10/01/22 08:39 JF [id number] 10/01/22 08:40 JF 09/10/22 09/17/22 10/01/22 09:17 [...] No signs of infection Pain: May take mqfo-ake-oljabwn Tylenol for discomfort Host factors: Chronic venous stasis with palpable varicosities to the lower extremity and foot, edema. ? I answered all the patient's questions.? To return to the wound healing center in 1 week or call sooner if the patient has any questions or concerns. 10/08/2258 <Electronically signed by Vinay Weiss DPM> Cosigner Signature (if applicable): CC: ~ Signed [facility] Work Phone: [phone] Progress note Author Vinay Weiss [facility] October 01, 2022 9:02am Note Date/Time October 01, 2022 8:2 0am [facility] [address] [place] [address] Progress Note - Wound Care 10/01/22 0819 MR#: [id number] Acct: [id number] Name: YOSEF JENNINGS Rep #:[id number] : 1940 82 From: Vinay zimmerman DPM PCP: Dr. Tracey Smith MD Status:R RCR Location: History of Present Illness Date [...] did fall recently and went to the [facility] ED for stitches in the right hand [...] L 69 17 155/80 H 09/24/22 08:23 03 08:23 03 08:55 09/24/22 08:23 Physical Exam Const alert, [...] Date Recorded By Document 09/10/22 08:55 ML [id number] 09/10/22 09:01 ML Document 09/17/22 08:29 AK [id number] 09/17/22 08:35 AK Document 09/24/22 08:23 AK [id number] 09/24/22 08:25 AK 09/10/22 09/17/22 09/24/22 08:55 08:29 08:23 - Today's Visit Information Type of service Follow-up Visit Follow-up Visit Follow-up Visit (Physician/NURSE PRACTICAL (Physician/NURSE PRACTICAL (Physician/NURSE PRACTICAL ) ) ) Arrival Mode Ambulatory Ambulatory [...] Date Recorded By Document 09/10/22 08:55 ML [id number] 09/10/22 09:01 ML Document 09/17/22 08:29 AK [id number] 09/17/22 08:35 AK Document 09/24/22 08:23 AK [id number] 09/24/22 08:25 AK 09/10/22 09/17/22 09/24/22 08:55 [...] Present (0 Large (67-100%) %) -Granulation Quality [place],Red [place] -Slough/Fibrin No No Yes -Necrosis Amt None [...] Date Recorded By Document 09/10/22 11:26 PL [id number] 09/10/22 11:29 PL Document 09/17/22 11:34 PL [id number] 09/17/22 11:36 PL Document 09/24/22 11:36 PL [id number] 09/24/22 11:37 PL 09/10/22 09/17/22 09/24/22 11:26 [...] Date 06/11/27 06/11/27 07/12/27 -Product Lot Number [id number] 007 004 -Percent Used 100 100 [...] Date Recorded By Document 09/10/22 09:17 ML [id number] 09/10/22 09:20 ML Document 09/17/22 09:27 RB [id number] 09/17/22 09:29 RB 09/10/22 09/17/22 09:17 09:27 [...] No signs of infection Pain: May take xlig-grv-tgojmcc Tylenol for discomfort Host factors: Chronic venous stasis with palpable varicosities to the lower extremity and foot, edema. ? I answered all the patient's questions.? To return to the wound healing center in 1 week or call sooner if the patient has any questions or concerns. 10/01/22901 <Electronically signed by Vinay Weiss DPM> Cosigner Signature (if applicable): CC: ~ Signed [facility] Work Phone: [phone]) 486-688403-16-2023 Progress note Author Vinay Weiss [facility] September 24, 2022 8:51am Note Date/Time September 24, 2022 8:1 4am [facility] [address] [place] [address] Progress Note - Wound Care 09/24/22813 MR#: [id number] Acct: [id number] Name: YOSEF JENNINGS Rep #:[id number] : 1940 82 From: Vinay zimmerman DPM [...] did fall recently and went to the [facility] ED for stitches in the right hand [...] Start: 09/10/22 08:54 Freq: Status: Active Protocol: JORGE.LOWEXThelma Activity Type Activity Date Activity User E-sign Co-sign Detail Recorded Client Recorded Date Recorded By Document 09/10/22 08:55 ML [id number] 09/10/22 09:01 ML Document 09/17/22 08:29 AK [id number] 09/17/22 08:35 AK 09/10/22 09/17/22 08:55 08:29 - Today's Visit Information Type of service Follow-up Visit Follow-up Visit (Physician/NURSE PRACTICAL (Physician/NURSE PRACTICAL ) ) Arrival Mode Ambulatory Ambulatory Transfer [...] Date Recorded By Document 09/10/22 08:55 ML [id number] 09/10/22 09:01 ML Document 09/17/22 08:29 AK [id number] 09/17/22 08:35 AK 09/10/22 09/17/22 08:55 08:29 [...] (1-33%) None Present (0 %) -Granulation Quality [place],Red -Slough/Fibrin No No -Necrosis Amt None Present [...] Date Recorded By Document 09/10/22 11:26 PL [id number] 09/10/22 11:29 PL Document 09/17/22 11:34 PL [id number] 09/17/22 11:36 PL 09/10/22 09/17/22 11:26 11:34 [...] -Expiration Date 06/11/27 06/11/27 -Product Lot Number [id number] -Percent Used 100 100 -Bleeding [...] Date Recorded By Document 09/10/22 09:17 ML [id number] 09/10/22 09:20 ML Document 09/17/22 09:27 RB [id number] 09/17/22 09:29 RB 09/10/22 09/17/22 09:17 09:27 [...] No signs of infection Pain: May take wpxh-vto-khesjqf Tylenol for discomfort Host factors: Chronic venous stasis with palpable varicosities to the lower extremity and foot, edema. ? I answered all the patient's questions.? To return to the wound healing center in 1 week or call sooner if the patient has any questions or concerns. 09/24/22850 <Electronically signed by Vinay Weiss DPM> Cosigner Signature (if applicable): CC: ~ Signed [facility] Work Phone: [phone]) 963-615603-09-2023 Progress note Author Vinay Weiss [facility] September 17, 2022 10:26am Note Date/Time September 17, 2022 9:26 am [facility] [address] [place] [address] Progress Note - Wound Care 09/17/22921 MR#: [id number] Acct: [id number] Name: YOSEF JENNINGS Rep #:[id number] : 1940 82 From: Vinay zimmerman DPM [...] did fall recently and went to the [facility] ED for stitches in the right hand [...] Start: 09/10/22 08:54 Freq: Status: Active Protocol: JORGE.EDWIN Activity Type Activity Date Activity User E-sign Co-sign Detail Recorded Client Recorded Date Recorded By Document 09/10/22 08:55 ML [id number] 09/10/22 09:01 ML Document 09/17/22 08:29 AK [id number] 09/17/22 08:35 AK 09/10/22 09/17/22 08:55 08:29 - Today's Visit Information Type of service Follow-up Visit Follow-up Visit (Physician/NURSE PRACTICAL (Physician/NURSE PRACTICAL ) ) Arrival Mode Ambulatory Ambulatory Transfer [...] Date Recorded By Document 09/10/22 08:55 ML [id number] 09/10/22 09:01 ML Document 09/17/22 08:29 AK [id number] 09/17/22 08:35 AK 09/10/22 09/17/22 08:55 08:29 [...] (1-33%) None Present (0 %) -Granulation Quality [place],Red -Slough/Fibrin No No -Necrosis Amt None Present [...] Date Recorded By Document 09/10/22 11:26 PL [id number] 09/10/22 11:29 PL 09/10/22 11:26 Wound Center [...] Disc -Expiration Date 06/11/27 -Product Lot Number [id number] -Percent Used 100 -Bleeding Controlled with [...] Date Recorded By Document 09/10/22 09:17 ML [id number] 09/10/22 09:20 ML 09/10/22 09:17 Wound Care [...] No signs of infection Pain: May take rhps-lwj-xcpmmfm Tylenol for discomfort Host factors: Chronic venous stasis with palpable varicosities to the lower extremity and foot, edema. ? I answered all the patient's questions.? To return to the wound healing center in 1 week or call sooner if the patient has any questions or concerns. 09/17/22 1026 <Electronically signed by Vinay Weiss DPM> Cosigner Signature (if applicable): CC: ~ Signed [facility] Work Phone: 1(618) 264-759003-02-2023 Progress note Author Vinay Weiss [facility] September 10, 2022 9:20am Note Date/Time September 10, 2022 8:59 am [facility] [address] [place] [address] Progress Note - Wound Care 09/10/22 0856 MR#: [id number] Acct: [id number] Name: YOSEF JENNINGS Rep #:[id number] : 1940 82 From: Vinay zimmerman DPM [...] did fall recently and went to the [facility] ED for stitches in the right hand [...] No signs of infection Pain: May take shlm-syw-ejbiiil Tylenol for discomfort Host factors: Chronic venous stasis with palpable varicosities to the lower extremity and foot, edema. ? I answered all the patient's questions.? To return to the wound healing center in 1 week or call sooner if the patient has any questions or concerns. 09/10/22919 <Electronically signed by Vinay Weiss DPM> Cosigner Signature (if applicable): CC: ~ Signed [facility] Work Phone: [phone]) [phone] Progress note Author Vinay Weiss [facility] September 03, 2022 9:59pm Note Date/Time September 03, 2022 8:29am [facility] [address] [place] [address] Progress Note - Wound Care 09/03/22828 MR#: [id number] Acct: [id number] Name: YOSEF JENNINGS Rep #:[id number] : 1940 82 From: Vinay zimmerman DPM [...] did fall recently and went to the [facility] ED for stitches in the right hand [...] Date Recorded By Document 08/13/22 08:20 AK [id number] 08/13/22 08:26 AK Document 08/20/22 08:26 JF [id number] 08/20/22 08:32 JF Document 08/27/22 08:51 AK [id number] 08/27/22 08:54 AK 08/13/22 08/20/22 08/27/22 08:20 08:26 08:51 WC - Today's Visit Information Type of service Initial Visit Follow-up Visit Follow-up Visit (Physician/NURSE PRACTICAL (Physician/NURSE PRACTICAL ) ) Arrival Mode Ambulatory Ambulatory Ambulatory [...] Is Patient Pain Free? No Yes Yes WC - Nurse 1 - General Ulcer Measurement Start: 08/13/22 08:18 Freq: Status: Active Protocol: Activity Type Activity Date Activity User E-sign Co-sign Detail Recorded Client Recorded Date Recorded By Document 08/13/22 08:20 AK [id number] 08/13/22 08:26 AK Document 08/20/22 08:26 [id number] 08/20/22 08:32 JF Document 08/27/22 08:51 AK [id number] 08/27/22 08:54 AK 08/13/22 08/20/22 08/27/22 08:20 [...] (34-66%) Medium (34-66%) Medium (34-66%) -Granulation Quality [place] Red [place] -Slough/Fibrin Yes Yes Yes -Necrosis Amt Medium [...] (34-66%) Medium (34-66%) Medium (34-66%) -Granulation Quality [place],Red Red [place] -Slough/Fibrin Yes Yes Yes -Necrosis Amt Medium [...] Date Recorded By Document 08/13/22 11:38 PL [id number] 08/13/22 11:41 PL Document 08/20/22 11:53 PL [id number] 08/20/22 11:54 PL Document 08/27/22 11:50 PL [id number] 08/27/22 11:51 PL 08/13/22 08/20/22 08/27/22 11:38 [...] Recorded Date Recorded By Document 08/20/22 09:10 [id number] 08/20/22 09:11 Document 08/27/22 09:18 [id number] 08/27/22 09:19 08/20/22 08/27/22 09:10 09:18 Wound [...] No signs of infection Pain: May take gdwl-muo-bderaty Tylenol for discomfort Host factors: Chronic venous stasis with palpable varicosities to the lower extremity and foot, edema. I answered all the patient's questions. To return to the wound healing center in 1 week or call sooner if the patient has any questions or concerns. Note: [employer] speech recognition vac press operator software was used to create portions of this document. Sound-alike and misspelled words, as well as other vac press operator errors may be contained in the documentation. 09/03/22 2200 <Electronically signed by Vinay Weiss DPM> Cosigner Signature (if applicable): CC: ~ Signed [facility] Work Phone: [phone] 575-964802-16-2023 Progress note Author Vinay Weiss [facility] August 27, 2022 9:19am Note Date/Time August 27, 2022 8:28am [facility] [address] [place] [address] Progress Note - Wound Care 08/27/22 0828 MR#: [id number] Acct: [id number] Name: YOSEF JENNINGS Rep #:[id number] : 1940 82 From: Vinay zimmerman DPNyla [...] did fall recently and went to the [facility] ED for stitches in the right hand [...] Start: 08/13/22 08:18 Freq: Status: Active Protocol: WC.LOWEXT Activity Type Activity Date Activity User E-sign Co-sign Detail Recorded Client Recorded Date Recorded By Document 08/13/22 08:20 AK [id number] 08/13/22 08:26 AK Document 08/20/22 08:26 JF [id number] 08/20/22 08:32 JF 08/13/22 08/20/22 08:20 08:26 - Today's Visit Information Type of service Initial Visit Follow-up Visit (Physician/NURSE PRACTICAL ) Arrival Mode Ambulatory Ambulatory Patient Identification [...] Numeric Is Patient Pain Free? No Yes - Nurse 1 - General Ulcer Measurement Start: 08/13/22 08:18 Freq: Status: Active Protocol: Activity Type Activity Date Activity User E-sign Co-sign Detail Recorded Client Recorded Date Recorded By Document 08/13/22 08:20 ADOLFO [id number] 08/13/22 08:26 AK Document 08/20/22 08:26 CICI [id number] 08/20/22 08:32 JF 08/13/22 08/20/22 08:20 08:26 [...] Amt Medium (34-66%) Medium (34-66%) -Granulation Quality [place] Red -Slough/Fibrin Yes Yes -Necrosis Amt Medium [...] Amt Medium (34-66%) Medium (34-66%) -Granulation Quality [place],Red Red -Slough/Fibrin Yes Yes -Necrosis Amt Medium [...] Date Recorded By Document 08/13/22 11:38 PL [id number] 08/13/22 11:41 PL Document 08/20/22 11:53 PL [id number] 08/20/22 11:54 PL 08/13/22 08/20/22 11:38 11:53 [...] Recorded Date Recorded By Document 08/20/22 09:10 CICI [id number] 08/20/22 09:11 CICI 08/20/22 09:10 Wound Care [...] No signs of infection Pain: May take sqay-jea-jtjzphi Tylenol for discomfort Host factors: Chronic venous stasis with palpable varicosities to the lower extremity and foot, edema. I answered all the patient's questions. To return to the wound healing center in 1 week or call sooner if the patient has any questions or concerns. Note: [employer] speech recognition vac press operator software was used to create portions of this document. Sound-alike and misspelled words, as well as other vac press operator errors may be contained in the documentation. 08/27/22918 <Electronically signed by Vinay Weiss DPM> Cosigner Signature (if applicable): CC: ~ Signed [facility] Work Phone: [phone]) [phone] Progress note Author Vinay Weiss [facility] August 20, 2022 9:46am Note Date/Time August 20, 2022 8 :56am [facility] [address] [place] [address] Progress Note - Wound Care 08/20/22 0856 MR#: [id number] Acct: [id number] Name: YOSEF JENNINGS Rep #:[id number] : 1940 81 From: Vinay zimmerman DPM [...] did fall recently and went to the [facility] ED for stitches in the right hand [...] vein is patent and incompetent. 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 [...] Date Recorded By Document 08/13/22 08:20 AK [id number] 08/13/22 08:26 AK Document 08/20/22 08:26 CICI [id number] 08/20/22 08:32 CICI 08/13/22 08/20/22 08:20 08:26 - Today's Visit Information Type of service Initial Visit Follow-up Visit (Physician/NURSE PRACTICAL ) Arrival Mode Ambulatory Ambulatory Patient Identification [...] Numeric Is Patient Pain Free? No Yes - Nurse 1 - General Ulcer Measurement Start: 08/13/22 08:18 Freq: Status: Active Protocol: Activity Type Activity Date Activity User E-sign Co-sign Detail Recorded Client Recorded Date Recorded By Document 08/13/22 08:20 MN [id number] 08/13/22 08:26 MN Document 08/20/22 08:26 CICI [id number] 08/20/22 08:32 08/13/22 08/20/22 08:20 08:26 Wound [...] Amt Medium (34-66%) Medium (34-66%) -Granulation Quality [place] Red -Slough/Fibrin Yes Yes -Necrosis Amt Medium [...] Amt Medium (34-66%) Medium (34-66%) -Granulation Quality [place],Red Red -Slough/Fibrin Yes Yes -Necrosis Amt Medium [...] Date Recorded By Document 08/13/22 11:38 PL [id number] 08/13/22 11:41 PL 08/13/22 11:38 Wound Center [...] No signs of infection Pain: May take hrsy-xum-zzdhrtj Tylenol for discomfort Host factors: Chronic venous stasis with palpable varicosities to the lower extremity and foot, edema. I answered all the patient's questions. To return to the wound healing center in 1 week or call sooner if the patient has any questions or concerns. Note: [employer] speech recognition vac press operator software was used to create portions of this document. Sound-alike and misspelled words, as well as other vac press operator errors may be contained in the documentation. 08/20/22 0946 <Electronically signed by Vinay Weiss DPM> Cosigner Signature (if applicable): CC: ~ Signed [facility] Work Phone: 1(804) 374-573502-08-[address] Hoffmann [facility] August 19, 2022 10:49pm Note Date/Time August 19, 2022 1 0:42pm [facility] Medical Records Department [address] [place] [address] Emergency Department Summary 08/19/22 MR#: [id number] Acct: [id number] Name: YOSEF JENNINGS Rep #:[id number] : 1940 81 From: Inderjit Hoffmann DO [...] a DVT study. No history of DVT. PFSH PFS Medical History Arthritis Cellulitis of left ankle [...] your Primary Care Provider. Call [facility] ([phone]) or report to the closest Emergency Room. Call 911 if necessary. 08/19/22 9659 <Electronically signed by Inderjit Hoffmann DO> Cosigner Signature (if applicable): CC: Dr. Tracey Smith MD ~ Signed [facility] Work Phone: 1(477) 708-178302-02-2023 History and physical note Author Vinay Weiss [facility] August 13, 2022 9:36am Note Date/Time August 13, 2022 9 :22am [facility] [address] [place] [address] H&P Exam - Wound Care 08/13/22 0905 MR#: [id number] Acct: [id number] Name: YOSEF JENNINGS Rep #:[id number] : 1940 81 From: Vinay zimmerman DPM [...] did fall recently and went to the [facility] ED for stitches in the right hand [...] Recorded Date Recorded By Document 08/13/22 08:20 MN [id number] 08/13/22 08:26 AK 08/13/22 08:20 WC - Today's Visit Information [...] 0-10 Numeric Is Patient Pain Free? No WC - Nurse 1 - General Ulcer Measurement Start: 08/13/22 08:18 Freq: Status: Active Protocol: Activity Type Activity Date Activity User E-sign Co-sign Detail Recorded Client Recorded Date Recorded By Document 08/13/22 08:20 AK [id number] 08/13/22 08:26 AK 08/13/22 08:20 Wound Center Nurse 1 #2 [...] Attached -Granulation Amt Medium (34-66%) -Granulation Quality [place] -Slough/Fibrin Yes -Necrosis Amt Medium (34-66%) -Necrotic [...] Attached -Granulation Amt Medium (34-66%) -Granulation Quality [place],Red -Slough/Fibrin Yes -Necrosis Amt Medium (34-66%) -Necrotic [...] No signs of infection Pain: May take [id number] Tylenol for discomfort Host factors: Chronic venous stasis with palpable varicosities to the lower extremity and foot, edema. I answered all the patient's questions. To return to the wound healing center in 1 week or call sooner if the patient has any questions or concerns. Note: [employer] speech recognition vac press operator software was used to create portions of this document. Sound-alike and misspelled words, as well as other vac press operator errors may be contained in the documentation. [...] Cosigner Signature (if applicable): CC: ~ Signed [facility] Work Phone: [phone] 796-895101-31-[address] Walden [facility] August 11, 2022 11:03pm Note Date/Time August 11, 2022 1 1:00pm [facility] Medical Records Department [address] [place] [address] Emergency Department Summary 08/11/22 MR#: [id number] Acct: [id number] Name: YOSEF JENNINGS Rep #:[id number] : 1940 81 From: Shilo Walden MD [...] Funtion Narrative Narrative: Patient is an 81-year-old [id number]-rnbkkdur woman who was entering the building for [...] Signed: Imer Delaney MD at 21:01 EST , Procedures Other Procedures Procedure(s): Laceration was [...] your Primary Care Provider. Call [facility] ([phone]) or report to the closest Emergency Room. Call 911 if necessary. 08/11/22 2303 <Electronically signed by Shilo Walden MD> Cosigner Signature (if applicable): CC: Dr. Tracey Smith MD ~ Signed [facility] Work Phone: [phone]) 380-406701-31-2023 Hospital Discharge instructions Additional Instructions 1. Keep finger clean and dry. 2. Take antibiotic until gone 3. Sutures to be removed in 10 to 14 days.[facility] Work Phone: Discharge summary Author Michael Sánchez [facility] July 31, 2022 3:25am Note Date/Time July 31, 2022 3 :14am [facility] Medical Records Department [address] [place] [address] Emergency Department Summary 07/31/22 MR#: [id number] Acct: [id number] Name: YOSEF JENNINGS Rep #:[id number] : 1940 81 From: Michael Sánchez DO [...] concern for recurrent infection presents for evaluation [facility] Medical History (Updated 07/31/22 @ 03:25 by [...] % (Auto) 58.3 Lymph % (Auto) 28.9 [place] % (Auto) 10.2 H Eos % (Auto) [...] tissue swelling suggesting edema. Electronically Signed: Dante Solrozano MD at 3:02 EST , X-ray of [...] Care Referral (Routine) Timeframe: 1 Week Facility: [facility] - Location: Wound Healing Center Ordered By: Dr. Michael Sánchez Primary Care Provider: Tracey Smith Referrals: Tracey Smith MD [Primary Care Provider] - Vinay Weiss DPM [Med Staff - Active Staff] - Activity Restrictions/Additional Instructions: Please contact Dr. Weiss/podiatry to discuss further treatment options for your venous stasis ulcer. You have also been given a referral for [facility]. Please continue to wrap the wound as shown in the ER and return to the ERshould you have any further concerns Disposition Disposition: Home, Self Care What to do if you have Problems For any increased pain, shortness of breath, bleeding, nausea or vomiting, chestpain, or any unexpected problems, contact your Primary Care Provider. Call [facility] ([phone]) or report to the closest Emergency Room. Call 911 if necessary. 07/31/22 0325 <Electronically signed by Michael Sánchez DO> Cosigner Signature (if applicable): CC: Dr. Tracey Smith MD ~ Signed [facility] Work Phone: Discharge summary Author Bharath Mercer [facility] October 03, 2023 11:09am Note Date/Time October 03, 2023 9:3 5am [facility] Medical Records Department [address] [place] [address] Emergency Department Summary 10/03/23 MR#: [id number] Acct: [id number] Name: YOSEF JENNINGS Rep #:[id number] : 1940 83 From: Bharath Mercer MD [...] bleeding recently fromanywhere. 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 [facility] Medical History Arrhythmia Arthritis Atrial fibrillation Bilateral [...] 10:35 EDT Reading Location ID and State: [address] [place] [address] Tel , Service support , Discharge Plan [...] your Primary Care Provider. Call [facility] ([phone]) or report to the closest Emergency Room. Call 911 if necessary. 10/03/23 1109 <Electronically signed by Bharath Mercer MD> Cosigner Signature (if applicable): CC: Dr. 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 Venous insufficiency (chronic) (peripheral) [facility] Work Phone: Evaluation note* Diagnosis Onset Date Resolution Status Cellulitis of left ankle acu te Arrhythmia acute Encounter for removal of sutures acute Laceration of right middle f nikolay with foreign body w/o damage to nail acute Bilateral edema of lower extremity acute 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 Venous insufficiency (chronic) (peripheral) [facility] Work Phone: Evaluation note* Diagnosis Onset Date Resolution Status Arrhythmia acute Encounter for removal of sutures acute Laceration of right middle f nikolay with foreign body w/o damage to nail acute Bilateral edema of lower extremity acute 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 Venous insufficiency (chronic) (peripheral) [facility] Work Phone: Evaluation note* Diagnosis Onset Date [...] layer exposed chronic Venous insufficiency (chronic) (peripheral) [facility] Work Phone: Evaluation note* Diagnosis Onset Date [...] layer exposed chronic Venous insufficiency (chronic) (peripheral) [facility] Work Phone: Evaluation note* Diagnosis Onset Date [...] chronic DVT (deep venous thrombosis) chronic Hypertension [facility] Work Phone: Evaluation note* Diagnosis Onset Date Resolution Status COVID-19 acute Atrial fibrillation chronic Hypertension chronic Hypothyroidism [facility] Work Phone: Evaluation note* Diagnosis Onset Date Resolution Status COVID-19 acute Atrial fibrillation chronic Hypertension chronic Hypothyroidism chronic Atrial fibrillation chronic Bilateral edema of lower extremity chronic DVT (deep venous thrombosis) chronic Hypertension [facility] Work Phone: Hospital Discharge instructions Additional Instructions Please contact Dr. Weiss/podiatry to discuss further treatment options for your venous stasis ulcer. You have also been given a referral for [facility]. Please continue to wrap the wound as shown in the ER and return to the ER should you have any further concernsWC[facility] Work Phone: Reason for referral (narrative)No reason for referral information availableWCleveland [facility] Work Phone: Chief Complaint and Reason [...] ANKLE WOUND/INF ECTION X-Rays wound FALL DVT H FU - SUTURE REMOVAL Cardiac arrhythmia, unspecified Cardiac arrhythmia, unspecified NON HEALING WOUND Reason for Visit Cellulitis of left a nkle Arrhythmia Encounter for removal of sutures Laceration of right middle finger with foreign body w/o damage to nail Bilateral edema of lower extremity Non-pressure chronic ulcer of left calf with fat layer exposed Venous insufficiency (chronic) (peripheral) Chief Complaint wound FALL DVT [facility] FU - SUTURE REMOVAL Cardiac arrhythmia, unspecified Cardiac arrhythmia, unspecified NON HEALING WOUND Reason for Visit Arrhythmia Encounter for removal of sutures Laceration of right middle finger with foreign body w/o damage to nail Bilateral edema of lower extremity Non-pressure chronic ulcer of left calf with fat layer exposed Venous insufficiency (chronic) (peripheral) Chief Complaint wound FALL DVT [facility] FU - SUTURE REMOVAL Cardiac arrhythmia, [...] (chronic) (peripheral) Chief Complaint wound FALL DVT [facility] FU - SUTURE REMOVAL Cardiac arrhythmia, [...] (chronic) (peripheral) Chief Complaint wound FALL DVT [facility] FU - SUTURE REMOVAL Cardiac arrhythmia, [...] Hypertension Chief Complaint HEAD CONGESTION/COUG H COVID TEST/H EMPLOY follow up Reason for Visit COVID-19 Atrial fibrillation Hypertension Hypothyroidism Chief Complaint HEAD CONGESTION/COUG H COVID TEST/H EMPLOY follow up 6 M FU E ORDERS Reason for Visit COVID-19 Atrial fibrillation Hypertension Hypothyroidism Atrial fibrillation Bilateral edema of lower extremity DVT (deep venous thrombosis) Hypertension Chief Complaint HEAD CONGESTION/COUG H COVID TEST/H EMPLOY follow up 6 M FU E ORDERS flank pain Reason for Visit COVID-19 Atrial fibrillation Hypertension Hypothyroidism Atrial fibrillation Bilateral edema of lower extremity DVT (deep venous thrombosis) Hypertension Chief Complaint Admit Date 6 M FU October 24, 2024 2:3 1pm BP CHECK OK'D BY DELIA Gutierrez October 27, 2024 4:08pm Amb Documentation October 27, 2024 4:1 5pm Localized edema December 18, 2024 9:54a m Reason for Visit Admit Date Atrial fibrillation October 24, 2024 2:3 1pm Bilateral edema of lower extremity October 24, 2024 2:31pm DVT (deep venous thrombosis) October 24, 2024 2:31pm Hypertension October 24, 2024 2:3 1pm Chief Complaint Admit Date 6 M FU October 24, 2024 2:3 1pm BP CHECK OK'D BY DELIA Gutierrez October 27, 2024 4:08pm Amb Documentation October 27, 2024 4:1 5pm Localized edema December 18, 2024 9:54a m 4 WK FU December 26, 2024 2:25 pm Reason for Visit Admit Date Atrial fibrillation October 24, 2024 2:3 1pm Bilateral edema of lower extremity October 24, 2024 2:31pm DVT (deep venous thrombosis) October 24, 2024 2:31pm Hypertension October 24, 2024 2:3 1pm Atrial fibrillation December 26, 2024 2:25 pm Bilateral edema of lower extremity December 26, 2024 2:25pm DVT (deep venous thrombosis) December 26, 2024 2:25pm Hypertension December 26, 2024 2:25 pm Left ventricular systolic dysfunction (L VSD), NYHA class 2 December 26, 2024 2:25pm Chief Complaint Admit Date 6 M FU October 24, 2024 2:3 1pm BP CHECK OK'D BY DELIA Gutierrez October 27, 2024 4:08pm Amb Documentation October 27, 2024 4:1 5pm Localized edema December 18, 2024 9:54a m 4 WK FU December 26, 2024 2:25 pm E-ORDER February 07, 2025 4:11 pm Family History Relationship Condition Age at Onset Recorded Date/T reva Not Specified Cardiac disease Unknown brother Malignant neoplasm Unknown sister Malignant neoplasm Unknown Advance Directives Advance Directive Response Recorded Date/ Time Living Will No July 31 1:46am Power of Molasses And Caramel Operator No July 31, 2022 1:46am Advance Directive Response Recorded Date/ Time Living Will No August 11 7:28pm Power of Molasses And Caramel Operator No August 11, 2022 7:28pm Advance Directive Response Recorded Date/ Time Living Will No August 19 7:28pm Power of Molasses And Caramel Operator No August 19, 2022 7:28pm Advance Directive Response Recorded Date/ Time Living Will No August 19 8:28pm Power of Molasses And Caramel Operator No August 19, 2022 8:28pm Advance Directive Response Recorded Date/ Time Living Will No October 03, 2023 9:37am Power of Molasses And Caramel Operator No October 02 9:37am Summary Purpose Additional Source Comments Care Teams (unrecognized sec tion and content) Team Status: Active Member Role Status Dates Dr. Mounika Magallanes DO Family Provider Active Dr. Tracey Smith MD Primary Care Provider Active Team Status: Inactive Member Role Status Dates Dr. Tracey Smith MD Primary Care Provider, Refer ring Provider Active Veto Jalloh PA, PA Attending Provider Active Team Status: Inactive Member Role Status Dates Dr. Tracey Smith MD Primary Care Provider Active Dr. Yadiel Rogers MD Attending Provider Active Veto Jalloh PA, PA Referring Provider Active Team Status: Inactive [...] Dr. Tracey Smith MD Primary Care P lakshmi, Attending Provider, Referring Provider Active Team Status: [...] Status: Active Member Role Status Dates Dr. Traecy Smith MD Primary Care Provider Active Didi [...] Dr. Bharath Mercer MD Emergency Provider Active Team Status: Active Member Role Status Dates Dr. Tracey Smith MD Primary Care Provider Active Team Status: Inactive Member Role Status Dates Dr. Tracey Smith MD Primary Care Provider Active Start: October 24, 2024 End: October 24, 2024 Dr. Tracey Smith MD Referring Provider Active Start: October 24, 2024 End: October 24, 2024 Dr. Chele Locke MD Attending Provider Active Start: October 24, 2024 End: October 24, 2024 Team Status: Inactive Member Role Status Dates Dr. Tracey Smith MD Primary Care Provider Active Start: October 27, 2024 End: October 27, 2024 Dr. Tracey Smith MD Referring Provider Active Start: October 27, 2024 End: October 27, 2024 Dr. Chele Locke MD Attending Provider Active Start: October 27, 2024 End: October 27, 2024 Team Status: Active Member Role Status Dates Dr. Tracey Smith MD Primary Care Provider Active Start: October 27, 2024 Trip Green RN Attending Provider Active St art: October 27, 2024 Team Status: Inactive Member Role Status Dates Dr. Tracey Smith MD Primary Care Provider Active Start: December 18, 2024 End: December 18, 2024 Dr. Chele Locke MD Attending Provider Active Start: December 18, 2024 End: December 18, 2024 Dr. Chele Locke MD Referring Provider Active Start: December 18, 2024 End: December 18, 2024 Team Status: Active Member Role Status Dates Dr. Tracey Smith MD Primary Care Provider Active Start: December 18, 2024 Dr. Chele Locke MD Attending Provider Active Start: December 18, 2024 Team Status: Inactive Member Role Status Dates Dr. Tracey Smith MD Primary Care Provider Active Start: December 26, 2024 End: December 26, 2024 Dr. Tracey Smith MD Referring Provider Active Start: December 26, 2024 End: December 26, 2024 Dr. Chele Locke MD Attending Provider Active Start: December 26, 2024 End: December 26, 2024 Team Status: Active Member Role/Relationship Status Dates Dr. Tracey Smith MD Primary Care Provider Active Team Status: Inactive Member Role/Relationship Status Dates Dr. Tracey Smith MD Primary Care Provider Active Start: October 24, 2024 End: October 24, 2024 Dr. Tracey Smith MD Referring Provider Active Start: October 24, 2024 End: October 24, 2024 Dr. Chele Locke MD Attending Provider Active Start: October 24, 2024 End: October 24, 2024 Team Status: Inactive Member Role/Relationship Status Dates Dr. Tracey Smith MD Primary Care Provider Active Start: October 27, 2024 End: October 27, 2024 Dr. Tracey Smith MD Referring Provider Active Start: October 27, 2024 End: October 27, 2024 Dr. Chele Locke MD Attending Provider Active Start: October 27, 2024 End: October 27, 2024 Team Status: Active Member Role/Relationship Status Dates Dr. Tracey Smith MD Primary Care Provider Active Start: October 27, 2024 Trip Green RN Attending Provider Active St art: October 27, 2024 Team Status: Inactive Member Role/Relationship Status Dates Dr. Tracey Smith MD Primary Care Provider Active Start: December 18, 2024 End: December 18, 2024 Dr. Chele Locke MD Attending Provider Active Start: December 18, 2024 End: December 18, 2024 Dr. Chele Locke MD Referring Provider Active Start: December 18, 2024 End: December 18, 2024 Team Status: Active Member Role/Relationship Status Dates Dr. Tracey Smith MD Primary Care Provider Active Start: December 18, 2024 Dr. Chele Locke MD Attending Provider Active Start: December 18, 2024 Team Status: Inactive Member Role/Relationship Status Dates Dr. Tracey Smith MD Primary Care Provider Active Start: December 26, 2024 End: December 26, 2024 Dr. Tracey Smith MD Referring Provider Active Start: December 26, 2024 End: December 26, 2024 Dr. Chele Locke MD Attending Provider Active Start: December 26, 2024 End: December 26, 2024 Team Status: Inactive Member Role/Relationship Status Dates Dr. Tracey Smith MD Primary Care Provider Active Start: January 09, 2025 Dr. Katheryn Aggarwal MD Attending Provider Active Start: January 09, 2025 Team Status: Inactive Member Role/Relationship Status Dates Dr. Tracey Smith MD Primary Care Provider Active Start: February 07, 2025 End: February 07, 2025 Dr. Chele Locke MD Attending Provider Active Start: February 07, 2025 End: February 07, 2025 Dr. Chele Locke MD Referring Provider Active Start: February 07, 2025 End: February 07, 2025 Goals (unrecognized section and content) Goals may [...] ized section and content) DATE CREATED AUTHOR 02/09/2025 [facility] FOR RECORDS PERTAINING TO PATIENTS WHO ARE [...] BE BASED ON THE PRIMARY CLINICAL RECORDS. [employer] provides no warranty or guarantee of the accuracy or completeness of information in this document.
--- NOTE | 2025-02-26 18:24 | STRESSREP ---
Stress Test Report Pharmacologic myocardial perfusion stress test. 84-year-old lady with a history of dyspnea on exertion. Resting EKG demonstrates atrial fibrillation with a rate of 84 bpm. Resting blood pressure is 152/70 mmHg. 0.4 mg of regadenoson was infused per usual protocol followed by rapid intravenous saline flush injection. Continuous EKG monitoring was performed. The maximum heart rate was 96 bpm which was 70% of max impacted heart rate the maximum workload was 1 metabolic equivalent. At rest there were no ST or T wave changes noted to suggest ischemia and at peak infusion nonspecific ST changes were noted which did not meet the criteria for ischemia. No clinical angina is noted. The final blood pressure was 130/70 mmHg. Myocardial perfusion protocol. 15 mCi of technetium 99m sestamibi was injected at rest. 0.4 mg of regadenoson was infused per usual protocol. At peak infusion 44.7 mCi of technetium 99m sestamibi was injected stress images were obtained stress and rest images were reconstructed and compared in the short axis vertical long and horizontal long axis. Gated images were also obtained. Perfusion SPECT analysis: Review of the stress images demonstrate normal uptake of tracer noted in all areas of the myocardium. The resting images similar demonstrated normal uptake of tracer noted in all areas of the myocardium. No areas of reversibility are noted to suggest ischemia and no previous infarct is noted. Gated SPECT analysis: The gated ejection fraction is 60%. Conclusion: Normal pharmacologic myocardial perfusion stress test. Preserved ejection fraction.
== END | disposition home or self-care (01) ==
LOC: CVS 07:07
PROVIDERS: PCP Internal Medicine; Referring Provider Internal Medicine Cardiovascular Disease; Visit Provider Internal Medicine Cardiovascular Disease
DX: I51.89 Other ill-defined heart diseases (principal); I49.9 Cardiac arrhythmia, unspecified; R06.09 Other forms of dyspnea
CPT/HCPCS: 78452; 93017; A9500; A4216; J2785

== ENCOUNTER → 2025-04-06 | Outpatient (CLI) | payer MEDICARE, SELFPAY ==
--- OUTSIDE RECORDS SUMMARY | 2025-04-06 15:58 | XMS RPT_ITS | CCD ---
Author Organization [facility] Care Team Providers Care Matrix Bath Attendant Name Role Phone Dr. Dago Smith Primary Care Provider [phone] Dr. Dago Smith Referring Provider [phone] ROBYN Youssef Attending Provider Dr. Yadiel Rogers Attending Provider ROBYN Youssef Referring Provider Dr. Dago Smith Attending Provider [phone] Dr. Stephan Ayala Attending Provider [phone] Dr. Dago Smith Primary Care Provider [phone] Dr. Dago Smith Referring Provider [phone] Dr. Dago Smith Primary Care Provider [phone] Dr. Dago Smith Attending Provider [phone] Dr. Dago Smith Referring Provider [phone] Dr. Stephan Ayala Attending Provider [phone] Dr. Chele Locke Attending Provider [phone] Didi Thibodeaux Attending Provider Unavailable Dr. Dago Smith Primary Care Provider [phone] Dr. Dago Smith Referring Provider [phone] Dr. Chele Locke Referring Provider [phone] Dr. Chele Locke Other Provider Dr. Dago Smith Primary Care Provider [phone] Luis, Dr. Webb Referring Provider [phone] ROBYN Brown Attending Provider Dr. Dago Smith Attending Provider [phone] Chucky, Dr. Elaine Attending Provider [phone] Dr. Dago Smith Primary Care Provider [phone] Luis, Dr. Webb Referring Provider [phone] ROBYN Brown Attending Provider Luis, Dr. Webb Attending Provider [phone] Chucky, Dr. Elaine Attending Provider [phone] Luis GUAMAN, Dr. Webb Primary Care Provider Luis GUAMAN, Dr. Webb Referring Provider [phone] Chucky GUAMAN, Dr. Elaine Attending Provider Trip Green RN Attending Provider Unavailabl e Chucky GUAMAN, Dr. Elaine Referring Provider Alessia GUAMAN, Dr. Campa Attending Provider Luis GUAMAN, Dr. Webb Primary Care Provider Chucky GUAMAN, Dr. Elaine Attending Provider Luis GUAMAN, Dr. Webb Referring Provider [phone] Dr. Katheryn Aggarwal MD Attending Provider Chucky GUAMAN, Dr. Elaine Other Provider [phone] Ken GUAMAN, Dr. Cotto Attending Provider Luis GUAMAN, Dr. Webb Primary Care Physician Chucky GUAMAN, Dr. Elaine Attending Physician Dr. Katheryn Aggarwal MD Attending Physician Chucky GUAMAN, Dr. Elaine Nurse Practitioner Ken GUAMAN, Dr. Cotto Attending Physician Chucky, Chele Attending Unavailable Oleghe, Efewongbe Primary Care Unavailable Oleghe, Efewongbe Referring Unavailable Chucky, Chele Attending Unavailable Oleghe, Efewongbe Primary Care Unavailable Oleghe, Efewongbe Referring Unavailable Chucky, Chele Consulting Unavailable Chucky, Chele Referring Unavailable Oleghe, Efewongbe Primary Care Unavailable Yadiel Rogers Attending Unavailable Chucky, Chele Attending Unavailable Oleghe, Efewongbe Primary Care Unavailable Chucky, Chele Attending Unavailable Chucky, Chele Referring Unavailable Oleghe, Efewongbe Primary Care Unavailable Chucky, Chele Attending Unavailable Chucky, Chele Referring Unavailable Oleghe, Efewongbe Primary Care Unavailable Chucky, Chele Attending Unavailable Chucky, Chele Referring Unavailable Oleghe, Efewongbe Primary Care Unavailable Chucky, Chele Referring Unavailable Chucky, Chele Attending Unavailable Oleghe, Efewongbe Primary Care Unavailable Chucky, Chele Attending Unavailable Oleghe, Efewongbe Primary Care Unavailable Oleghe, Efewongbe Referring Unavailable Chucky, Chele Attending Unavailable Oleghe, Efewongbe Primary Care Unavailable Oleghe, Efewongbe Referring Unavailable Trip Green Attending Unavailable Oleghe, Efewongbe Primary Care Unavailable Oleghe, Efewongbe Referring Unavailable Chucky, Chele Attending Unavailable Oleghe, Efewongbe Primary Care Unavailable Oleghe, Efewongbe Referring Unavailable Oleghe, Efewongbe Primary Care Unavailable Katheryn Aggarwal Attending Unavailable Oleghe, Efewongbe Referring Unavailable Chucky, Chele Attending Unavailable Oleghe, Efewongbe Primary Care Unavailable Oleghe, Efewongbe Referring Unavailable Chucky, Chele Attending Unavailable Oleghe, Efewongbe Primary Care Unavailable Allergies Allergy Classification Reported Allergen(s) Allergy Type Date of Onset Reaction(s) Facility (18 sources) Latex Allergy to substance 10-20-[address] [facility] (1 source) Latex Drug allergy (disorder) 03-28-2025 [facility] Repository Medications Current Medications Medication Drug Class(es) Dates Sig (Normalized) Sig (Original) 8 hr acetaminophen 650 mg extended release oral tablet (20 sources) Start: 10-05-2022 End: 12-23-2022 take 1 tablet by mouth every eight hours as needed for pain Acetaminophen (Tylenol 8 Hour) 650 mg tablet extended release Active 650 mg PO Q8H as needed for fever or pain December 23, 2022 1:43pm Complies with drug therapy Start: 09-06-2018 End: 10-20-2021 take 1 tablet by mouth every six hours as needed Acetaminophen (Tylenol Extra Strength) 500 mg tablet Discontinued 500 mg PO EVERY 6 HOURS as needed September 06, 2018 1:00am October 20, 2021 2:44pm dapagliflozin 10 mg oral tablet (5 sources) Sodium-Glucose Cotransporter 2 Inhibitor Start: 12-26-2024 take 1 tablet by mouth once daily Dapagliflozin Propanediol (Farxiga) 10 mg tablet Active 10 mg PO daily 90 December 26, 2024 12:00am Complies with drug therapy furosemide 40 mg oral tablet (14 sources) Loop Diuretic Start: 04-27-2024 take 1 tablet by mouth once daily Furosemide 40 mg tablet Active 40 mg PO daily 90 April 27, 2024 12:00am Complies with drug therapy Start: 07-26-2023 End: 04-27-2024 take 1 tablet by mouth once daily Furosemide 20 mg tablet Discontinued 20 mg PO DAILY 90 July 26, 2023 1:00am April 27, 2024 4:25pm Handicap Parking Placard (4 sources) Start: 12-26-2024 Handicap Parki ng Placard Active 0 .Route .MEDSUPPLY 1 0 December 26, 2024 12:00am Lifetime (renew 12/26/2029) As directed levothyroxine sodium 0.075 mg oral tablet (20 sources) l-Thyroxi ne Start: 05-03-2024 take 1 tablet by mouth once daily Levothyroxine 75 mcg tablet Active 75 ug PO DAILY 60 May 03, 2024 6:52pm Complies with drug therapy Start: 01-18-2024 End: 05-03-2024 take 1 tablet [...] TABLET BY MOUTH ONCE DAILY losartan potassium 50 mg oral tablet (5 sources) Angiotensin 2 Receptor Ely Start: 03-28-2025 take 1 tablet by mouth once daily Losartan 50 mg tablet Active 50 mg PO daily March 28, 2025 12:00am Complies with drug therapy Start: 12-28-2024 End: 03-28-2025 take 1 tablet by mouth once daily Losartan 25 mg tablet Discontinued 25 mg PO daily 90 December 28, 2024 12:00am March 28, 2025 1:36pm 24 hr metoprolol succinate 100 mg extended release oral tablet (6 sources) beta-Adrenergic Ely Start: 10-24-2024 take 1 tablet by mouth once daily Metoprolol Succinate 100 mg tablet extended release 24 hr Active 100 mg PO daily 90 October 24, 2024 12:00am Complies with drug therapy metroNIDAZOLE 500 mg oral tablet (1 source) Nitroimidazole Antimicrobial Start: 03-27-2025 take 1 tablet by mouth twice daily naproxen sodium 220 mg oral tablet (20 [...] chloride 20 meq extended release oral tablet (14 sources) Start: 04-27-2024 take 1 tablet by mouth once daily Potassium Chloride 20 mEq tablet extended release Active 20 meq PO daily 90 April 27, 2024 12:00am Complies with drug therapy Start: 07-26-2023 End: 04-27-2024 take 1 tablet by mouth once daily Potassium Chloride 10 mEq tablet extended release Discontinued 10 meq PO DAILY 90 July 26, 2023 1:00am April 27, 2024 4:25pm Vibegron (9 sources) Start: 07-14-2023 take 1 tablet by cary th once daily Vibegron 75 mg tablet Active 75 mg PO DAILY July 14, 2023 1:00am Complies with drug therapy Start: 07-14-2023 take 1 tablet by mouth once da vicente Vibegron 75 mg tablet Active 75 mg [...] Sig (Original) amLODIPine 2.5 mg oral tablet (18 sources) Dihydropyridine Calcium Channel Ely Start: 02-11-2021 [...] 2023 8:31am cephalexin 500 mg oral capsule (17 sources) Cephalosporin Antibacterial Start: 08-11-2022 End: 08-13-2022 take 1 capsule by mouth every twelve hours Cephalexin 500 mg capsule Discontinued 500 mg PO EVERY 12 HOURS 6 0 August 11, 2022 1:00am August 13, 2022 9:28am dexamethasone 6 mg oral tablet (9 sources) Corticosteroid Start: 06-16-2023 End: 10-19-2023 take 1 tablet by mouth once daily Dexamethasone 6 mg tablet Discontinued 6 mg PO DAILY 5 0 June 16, 2023 1:00am October 19, 2023 9:19am dextromethorphan hydrobromide 2 mg/ml / guaiFENesin 20 mg/ml oral solution (18 sources) Uncompetitive L-qhyxdk-M-aspartate Receptor Antagonist, Sigma-1 Agonist Start: 08-09-2017 End: [...] 2:26pm diphenhydrAMINE hydrochloride 25 mg oral tablet (18 sources) Histamine-1 Receptor Antagonist Start: 08-04-2018 End: 10-20-2021 take 1 tablet by mouth at bedtime as needed Diphenhydramine Hcl (Kristal-Comstock Plus Allergy) 25 mg tablet Discontinued 25 mg PO AT BEDTIME as needed August 04, 2018 1:00am October 20, 2021 2:44pm doxycycline monohydrate 100 mg oral capsule (18 sources) Tetracycline-clas s Drug Start: 05-11-2022 End: 08-13-2022 take 1 capsule by mouth twice daily Doxycycline Monohydrate 100 mg capsule Discontinued 100 mg PO TWICE A DAY 20 0 May 11, 2022 12:00am August 13, 2022 9:28am L-Desoxyephedrine 50 mg inhaler (6 sources) Start: 08-09-2017 End: 08-04-2018 L-Desoxyephedrine 50 [...] mg / valsartan 26 mg oral tablet (5 sources) Angiotensin 2 Receptor Ely Start: 12-26-2024 End: 12-28-2024 Sacubitril-Valsarta n (Entresto) 24-26 mg tablet Discontinued 1 {tbl} PO TWICE A DAY 180 3 December 26, 2024 12:00am December 28, 2024 8:24am Problems Problem Classification Problem Date Documented Da te Episodic/Chronic Cardiac dysrhythmias (20 sources) Cardiac arrhythmia; Translations: [Cardiac arrhythmia, unspecified] Onset: 03-08-2025 08-24-2022 Chronic Chronic ulcer of skin (20 sources) Chronic non-pressure ulcer of calf extending to fat level; Translations: [Non-pressure chronic ulcer of left calf with fat layer exposed] 08-13-2022 Chronic E Codes: Fall (20 sources) Fall; Translations: [Unspecified fall, initial encounter] 08-09-2017 Episodic Essential hypertension (20 sources) Hypertensive disorder; Translations: [Essential (primary) hypertension] Onset: 03-28-2025 07-31-2022 Chronic Genitourinary symptoms and ill-defined conditions (2 sources) Incontinence; Translations: [Mixed incontinence] 03-27-2025 Chronic Genitourinary symptoms and ill-defined conditions (2 sources) Nocturia; Translations: [Nocturia] 03-27-2025 Episodic Inflammatory diseases of female pelvic organs (2 sources) Acute vaginitis; Translations: [Acute vaginitis] 03-27-2025 Episodic Menopausal disorders (2 sources) Atrophy of vagina; Translations: [Postmenopausal atrophic vaginitis] 03-27-2025 Chronic Open wounds of extremities (20 sources) Laceration of finger with foreign body; Translations: [Laceration with foreign body of right middle finger without damage to nail, initial encounter] 08-11-2022 Episodic Osteoarthritis (18 sources) Osteoarthritis of joint of right shoulder region; Translations: [Primary osteoarthritis, right shoulder] 10-19-2018 Chronic Other aftercare (14 sources) Surgical follow-up; Translations: [Encounter for removal of sutures] 08-24-2022 Episodic Other aftercare (5 sources) Encounter for removal of sutures; Translations: [Encounter for removal of sutures] 08-24-2022 Episodic Other aftercare (1 source) Removal of sutures done; Translations: [Encounter for removal of sutures] 08-24-2022 Episodic Other and ill-defined heart disease (11 sources) Left ventricular systolic dysfunction; Translations: [Other ill-defined heart diseases] 12-26-2024 Chronic Other and ill-defined heart disease (2 sources) Other ill-defined heart diseases; Translations: [Other ill-defined heart diseases] Onset: 03-08-2025 Chronic Other connective tissue disease (18 sources) Triggering of digit; Translations: [Trigger finger, unspecified finger] 10-20-2021 Episodic Other diseases of veins and lymphatics (16 sources) Peripheral venous insufficiency; Translations: [Venous insufficiency (chronic) (peripheral)] 08-13-2022 Episodic Other diseases of veins and lymphatics (13 sources) Venous insufficiency (chronic) (peripheral); Translations: [Venous (peripheral) insufficiency, unspecified] 08-19-2022 Episodic Other ear and sense organ disorders (18 sources) Hearing loss; Translations: [Unspecified hearing loss, unspecified ear] 09-06-2018 Chronic Other lower respiratory disease (7 sources) Rib pain; Translations: [Pleurodynia] 10-03-2023 Episodic Other nervous system disorders (11 sources) Carpal tunnel syndrome; Translations: [Carpal tunnel syndrome, right upper limb] 10-19-2018 Chronic Other nervous system disorders (7 sources) Carpal tunnel syndrome of right wrist; Translations: [Carpal tunnel syndrome, right upper limb] 06-30-2023 Chronic Other nutritional; endocrine; and metabolic disorders (2 sources) Body mass index 40+ - severely obese; Translations: [Morbid (severe) obesity due to excess calories] 03-28-2025 Chronic Other nutritional; endocrine; and metabolic disorders (1 source) Morbid (severe) obesity due to excess calories; Translations: [Morbid (severe) obesity due to excess calories] Onset: 03-28-2025 Chronic Other nutritional; endocrine; and metabolic disorders (1 source) Body mass index (BMI) 40.0-44.9, adult; Translations: [Body mass index [BMI] 40.0-44.9, adult] Onset: 03-28-2025 Chronic Other screening for suspected conditions (not mental disorders or infectious disease) (12 sources) Raised TSH level; Translations: [Other specified abnormal findings of blood chemistry] 10-22-2022 Episodic Other skin disorders (6 sources) Localized swelling of chest wall; Translations: [Localized swelling, mass and lump, trunk] 01-12-2024 Episodic Phlebitis; thrombophlebitis and thromboembolism (20 sources) Deep venous thrombosis; Translations: [Acute embolism and thrombosis of unspecified deep veins of unspecified lower extremity] Onset: 03-28-2025 10-05-2022 Episodic Residual codes; unclassified (20 sources) Bilateral lower limb edema; Translations: [Localized edema] 08-13-2022 Episodic Residual codes; unclassified (16 sources) Localized edema; Translations: [Edema] Onset: 03-28-2025 08-19-2022 Episodic Skin and subcutaneous tissue infections (20 sources) Cellulitis of left ankle; Translations: [Cellulitis of left lower limb] 05-11-2022 Episodic Superficial injury; contusion (20 sources) Contusion of knee; Translations: [Contusion of right knee, initial encounter] 08-09-2017 Episodic Thyroid disorders (15 sources) Hypothyroidism; Translations: [Hypothyroidism, unspecified] 10-23-2022 Chronic Urinary tract infections (2 sources) Urinary tract infectious disease; Translations: [Urinary tract infection, site not specified] 03-27-2025 Episodic Varicose veins of lower extremity (18 sources) Ankle ulcer; Translations: [Varicose veins of unspecified lower extremity with ulcer of ankle] 07-31-2022 Episodic Viral infection (12 sources) Disease caused by 2019-nCoV; Translations: [COVID-19] 06-16-2023 Episodic Results Test Name Value Interpretation Reference Range Facility Cardiology Visit Reporton Cardiology Visit Report [facility] [address] [place], [place] [address] OFFICE VISIT Date of Service: 03/28/25 MR#: [id number] Acct: [id number] Name: YOSEF JENNINGS Rep #: [id number] : 1940 Provider: Dr. Chele Locke MD Age/Sex: 84/F [place] [facility] [place] HPI HPI History of Present Illness Details: This very pleasant lady with history of paroxysmal atrial fibrillation, DVT, hypertension, nonischemic cardiomyopathy, hypothyroidism and obesity is here for follow-up visit. Denies any complaints. No palpitations. No orthopnea. No PND. She continues to have chronic lower extremity edema. Intake Vital Signs 12/26/24 14:55 03/26/25 15:29 03/28/25 12:58 Height 5 ft 6.14 in 5 ft 6 in 5 ft 6 in Weight: 230 lb 248 lb BMI 37.1 40.0 BP 128/78 H 149/84 H Blood Pressure Location Lt radial Position Sitting Respiration 20 H Pulse 68 77 Pulse Source Monitor Temp 98.2 F Intake Visit Reasons: 3 M FU Erp Business Analyst Required: No Accompanied by: Self Is patient in pain?: No Allergies latex Allergy (Mild, Verified 03/28/25 12:58) unknown Medications ???Medication ???Instructions ???Recorded ???Confirmed ???Type acetaminophen 650 mg 650 mg PO Q8H PRN fever or pain 03/07/25 History tablet,extended release (Tylenol 8 Hour) vibegron 75 mg tablet 75 mg PO DAILY 07/14/23 03/07/25 H istory apixaban 5 mg tablet (Eliquis) 5 mg PO BID #60 tabs 12/15/2302/10 Rx furosemide 40 mg tablet 40 mg PO QDAY #90 tabs 04/27/24 Rx potassium chloride 20 mEq 20 meq PO QDAY #90 tabs 04/27/24 0 03/07/25 Rx tablet,extended release levothyroxine 75 mcg tablet 75 mcg PO DAILY #60 tabs 05/03/24 03/07/25 Rx metoprolol succinate 100 mg 100 mg PO QDAY #90 tabs 10/24/24 0 03/07/25 Rx tablet,extended release 24 hr Handicap Parking Placard #1 ea 12/26/24 03/07/25 Rx dapagliflozin propanediol 10 mg 10 mg PO QDAY #90 tabs 12/26/24 Rx tablet (Farxiga) losartan 25 mg tablet 25 mg PO QDAY #90 tabs 12/28/24 Rx metronidazole 500 mg tablet 500 mg PO BID #14 tabs 03/27/25 R x Ejection fraction %: 35 Have you fallen in the past year?: No PFSH Medical History Urinary tract infection Nocturia Mixed incontinence Localized swelling of chest wall COVID-19 Hypothyroidism [...] active job ROS Const Const: Negative for fatigue or weakness Eyes Eyes: Negative for change in vision ENT ENT: Negative for dizziness or balance problems Cardio Chest Pain: No Palpitations: No Edema: Bilateral Resp Respiratory: Positive for SOB with activity; Negative for SOB at rest or SOB orthopnea SOB lying down GI GI: Negative nausea or heartburn Musc Musc: Negative for balance problems Neuro Neuro: Negative for dizziness, lightheadedness, near syncope, syncope or weakness Endo Endo: Negative for fatigue [...] Edema: +1: Bilateral Supplemental Info Supplemental Information Diagnostics: Electrocardiogram Echocardiogram Stress (more content not included)... Normal [facility] MR/BMSYulia 03-26-2025 MR/BMSMONROE [facility] [address], [address] [place], [place] [id number] OFFICE VISIT Date of Service: 03/26/25 MR#: [id number] Acct: [id number] Name: DICKYOSEF DENNISENE Rep #: [id number] : 1940 Provider: Dr. Katheryn Mack i, MD Age/Sex: 84/F Location: [facility] [place] Status: Signed Intake Vital Signs 12/26/24 14:55 03/26/25 15:29 Height 5 ft 6.14 in 5 ft 6 in Weight: 230 lb BMI 37.1 BP 128/78 H Pulse 68 Temp 98.2 F Intake Visit Reasons: 3 mo pessary cleaning Chief Complaint: 3 MONTH PESSARY CLEANING Erp Business Analyst Required: No Is patient in pain?: No Allergies latex Allergy (Mild, Verified 10/24/24 14:39) unknown Have you fallen in the past year?: No PFS Medical History (Updated 03/27/25 @ 10:[address] Katheryn Aggarwal MD) Urinary tract infection Nocturia Mixed incontinence Localized swelling of chest wall COVID-19 Hypothyroidism [...] details: dancing and active job HPI HPI Urology Chief Complaint: 3 MONTH PESSARY CLEANING Details: YOSEF JENNINGS, is a 84 F. She is not cleaning the pessary on her own. The pessary has stayed in placed since her last visit. There is no vaginal bleeding or excess vaginal discharge. She does have a strong odor and feels she may have infection. She is able to urinate without straining and has no difficulties with bowel movements. She is satisfied with the pessary as treatment for her urologic issues. She is using trimosan as recommended. ROS Const Constitutional: No chills, fatigue, fever(s), headache(s), night sweats, weakness, weight change, abnormal sleep pattern or change in appetite Eyes Eyes: No change in vision ENT ENT: No headache(s) or dry mouth Resp Respiratory: No cough, chest congestion, shortness of breath or wheezing Cardio Cardiology: Positive for other (No chest pain.); No shortness of breath, irregular heart rhythm or lightheadedness Gastro GI: Positive for other (No nausea.); No abdominal pain, change in bowel habits, constipation, diarrhea or vomiting Musc Musculoskeletal: No abnormal gait Skin Skin: No yellowing of the eye, lesions, itchy eyes, rash or skin ulcer Neuro Neurology: No abnormal gait, confusion, dizziness, weakness, headache(s) or memory loss Psych Psychiatric: No abnormal sleep pattern, No change in appetite, No confusion and No memory loss Endo Endocrine: No fatigue, increased thirst/drinking or weight change Aller/Imm Allergy/Immunologic: No itchy eyes or wheezing Rey/Lymp Hematologic/Lymphati c: No easy bleeding, easy bruising or enlarged lymph nodes Exam Const General: cooperative, healthy appearing, comfortable and no acute distress [facility] Head: normocephalic and atraumatic Ears: hearing grossly normal bilaterally and external ears normal Nose: external nose normal Eyes General: appearance normal, both eyes and all related structures Neck Neck: normal visual inspection and trachea midline Chest Chest palpation inspection: normal inspection of the chest Resp Effort Inspection: normal respiratory effort, able to speak in complete sentences and symmetric chest movement Cardio Rate: regular rate GI Inspection: normal to inspection Palpation: soft and nontender General: No CVA tenderness Other: The pessary was removed without difficulty. There was minimal normal vaginal drainage present. The vaginal mucosa in its entirety was examined. There are no ulcerations, lacerations or breaks in the mucosa identified. There is no active bleeding. The pessary was cleaned and replaced without any issues. Vaginal pat (more content not included)... Normal [facility] Cardiovascular stress test r eportOrdered By: Yadiel Rogers on 02-26-2025 Study report [facility] [address] [place] [address] MR#: [id number] Acct: [id number] Name: YOSEF JENNINGS Rep #: [id number] : 1940 84 From: Yadiel Rogers MD Primary Care: Dr. Dago Smith MD [facility]: REG CLI Referring Dr: Chele Locke MD Sex: F C Stress Test Report Pharmacologic myocardial perfusion stress test. 84-year-old lady with a history of dyspnea on exertion. Resting EKG demonstrates atrial fibrillation with a rate of 84 bpm. Resting blood pressure is 152/70 mmHg. 0.4 mg of regadenoson was infused per usual protocol followed by rapid intravenous saline flush injection. Continuous EKG monitoring was performed. The maximum heart rate was 96 bpm which was 70% of maximpacted heart rate the maximum workload was 1 metabolic equivalent. At rest there were no ST or T wave changes noted to suggest ischemia and at peak infusion nonspecific ST changes were noted which did not meet the criteria for ischemia. No clinical angina is noted. The final blood pressure was 130/70 mmHg. Myocardial perfusion protocol. 15 mCi of technetium 99m sestamibi was injected at rest. 0.4 mg of regadenoson was infused per usual protocol. At peak infusion 44.7 mCi of technetium 99m sestamibi was injected stress images were obtained stress and rest images were reconstructed and compared in the short axis vertical long and horizontal long axis. Gated images were also obtained. Perfusion SPECT analysis: Review of the stress images demonstrate normal uptake of tracer noted in all areas of the myocardium. The resting images similar demonstrated normal uptake of tracer noted in all areas of the myocardium. No areas of reversibility are noted to suggest ischemia and no previous infarct is noted. Gated SPECT analysis: The gated ejection fraction is 60%. Conclusion: Normal pharmacologic myocardial perfusion stress test. Preserved ejection fraction. 02/26/25 1825 Date _ Yadiel Rogers MD CC: Dr. Chele Locke MD; Dr. Dago Smith MD ~ Date Dictated: 02/26/251823 Date Transcribed: 02/26/251823 Educational Psychologist: [place] Signed [facility] Work Phone: Stress Reporton 02-26-2025 Stress Report [facility] [address] [place] [address] MR#: [id number] Acct: [id number] Name: YOSEF JENNINGS Rep #: [id number] : 1940 84 From: Yadiel Rogers MD Primary Care: Dr. Dago Smith MD Status: REG CLI Referring Dr: Chele Locke MD Sex: F C Stress Test Report Pharmacologic myocardial perfusion stress test. 84-year-old lady with a history of dyspnea on exertion. Resting EKG demonstrates atrial fibrillation with a rate of 84 bpm. Resting blood pressure is 152/70 mmHg. 0.4 mg of regadenoson was infused per usual protocol followed by rapid intravenous saline flush injection. Continuous EKG monitoring was performed. The maximum heart rate was 96 bpm which was 70% of max impacted heart rate the maximum workload was 1 metabolic equivalent. At rest there were no ST or T wave changes noted to suggest ischemia and at peak infusion nonspecific ST changes were noted which did not meet the criteria for ischemia. No clinical angina is noted. The final blood pressure was 130/70 mmHg. Myocardial perfusion protocol. 15 mCi of technetium 99m sestamibi was injected at rest. 0.4 mg of regadenoson was infused per usual protocol. At peak infusion 44.7 mCi of technetium 99m sestamibi was injected stress images were obtained stress and rest images were reconstructed and compared in the short axis vertical long and horizontal long axis. Gated images were also obtained. Perfusion SPECT analysis: Review of the stress images demonstrate normal uptake of tracer noted in all areas of the myocardium. The resting images similar demonstrated normal uptake of tracer noted in all areas of the myocardium. No areas of reversibility are noted to suggest ischemia and no previous infarct is noted. Gated SPECT analysis: The gated ejection fraction is 60%. Conclusion: Normal pharmacologic myocardial perfusion stress test. Preserved ejection fraction. 02/26/251824 Date Yadiel Rogers MD CC: Dr. Chele Locke MD; Dr. Dago Smith MD Date Dictated: 02/26/251823 Date Transcribed: 02/26/251823 Educational Psychologist: [place] Signed Normal [facility] Anion gap in Serum or Plasma Ordered By: Chele Locke on 02-07-2025 Anion gap [Moles/Vol] 12 mmol/L 5-15 [facility] BUN/creatinine ratioOrdered By: Chele Locke on 02-07-2025 Urea nitrogen/Creatinine [Mass ratio] 20.6 mg/mg High - [facility] Basic Metabolic Profile (BMP )on 02-07-2025 BUN/CRE 20.6 RATIO High - [facility] Comment on above: Performed By: #### L 500.2500 #### [facility] [address] [place], [address] Calcium [Mass/Vol] 9.3 mg/dL Normal 7.6-11.0 [facility] Comment on above: Performed By: #### L 500.2500 #### [facility] [address] [place], [address] Chloride [Moles/Vol] 106 mmol/L Normal 98-108 [facility] Comment on above: Performed By: #### L 500.2500 #### [facility] [address] [place], [address] CO2 [Moles/Vol] 20.1 mmol/L Low 21.0-32.0 [facility] Comment on above: Performed By: #### L 500.2500 #### [facility] [address] [place], [address] Creatinine [Mass/Vol] 1.08 mg/dL Normal 0.70-1.20 [facility] Comment on above: Performed By: #### L 500.2500 #### [facility] [address] [place], [address] GAP 12 Normal 5-15 [facility] Comment on above: Performed By: #### L 500.2500 #### [facility] [address] [place], [address] GFR/1.73 sq M.predicted among non-blacks MDRD (S/P/Bld) [Vol rate/Area] 51 mL/min/{1.73_m2} Low >60 [facility] Comment on above: Result Comment: mL/m in/1.73m2 CKD-EPI Creatinine Equation (2020) Performed By: #### L 500.2500 #### [facility] [address] [place], [address] Glucose [Mass/Vol] 99 mg/dL Normal 70-99 [facility] Comment on above: Performed By: #### L 500.2500 #### [facility] [address] [place], [address] Potassium [Moles/Vol] 4.6 mmol/L Normal 3.3-5.1 [facility] Comment on above: Performed By: #### L 500.2500 #### [facility] [address] [place], [address] Sodium [Moles/Vol] 139 mmol/L Normal 133-145 [facility] Comment on above: Performed By: #### L 500.2500 #### [facility] [address] [place], [address] Urea nitrogen [Mass/Vol] 22 mg/dL High 4-19 [facility] Comment on above: Performed By: #### L 500.2500 #### [facility] [address] [place], [address] Carbon dioxide, total [Moles /volume] in Central venous bloodOrdered By: Chele Locke on 02-07-2025 CO2 [Moles/Vol] 20.1 mmol/L Low 21.0-32.0 [facility] Chloride assayOrdered By: Krish Locke on 02-07-2025 Chloride [Moles/Vol] 106 mmol/L 98-108 [facility] Glomerular filtration rate ( GFR) estimation/1.73 sq m using serum, plasma, or whole bOrdered By: Chele Locke on 02-07-2025 GFR/1.73 sq M.predicted among non-blacks MDRD (S/P/Bld) [Vol rate/Area] 51 mL/min/{1.73_m2} Low >60 [facility] Comment on above: mL/min/1.73m2 CKD-EP I Creatinine Equation (2020) Potassium measurement (mass/ volume)Ordered By: Chele Locke on 02-07-2025 Potassium (Unsp spec) [Mass/Vol] 4.6 mmol/L 3.3-5.1 [facility] Serum creatinine measurement (mass/volume)Ordered By: Chele Locke on 02-07-2025 Creatinine [Mass/Vol] 1.08 mg/dL 0.70-1.20 [facility] Serum glucose measurement (m ass/volume)Ordered By: Chele Locke on 02-07-2025 Glucose [Mass/Vol] 99 mg/dL 70-99 [facility] Serum or plasma calcium selina urement (mass/volume)Ordered By: Chele Locke on 02-07-2025 Calcium [Mass/Vol] 9.3 mg/dL 7.6-11.0 [facility] Serum or plasma urea nitroge n measurement (mass/volume)Ordered By: Chele Locke on 02-07-2025 Urea nitrogen [Mass/Vol] 22 mg/dL High 4-19 [facility] Sodium levelOrdered By: Himanshu Locke on 02-07-2025 Sodium [Moles/Vol] 139 mmol/L 133-145 [facility] Cardiology Visit Reporton Cardiology Visit Report [facility] [address] [address] [place] [address] OFFICE VISIT Date of Service: 12/26/24 MR#: [id number] Acct: [id number] Name: YOSEF JENNINGS Rep #: [id number] : 1940 Provider: Dr. Chele Locke MD Age/Sex: 84/F Location: [facility] [place] Status: Signed HPI HPI History of [...] (Eliquis) 5 mg PO BID #60 tabs 12/15/2303/05 Rx furosemide 40 mg tablet 40 mg [...] moderately enlarged (more content not included)... Normal [facility] Echo Completeon 12-18-[address] [facility] [address] [place] [address] Echo Complete 12/18/24 1008 MR#: [id number] Acct: [id number] Name: YOSEF JENNINGS Rep #: [id number] : 1940 84 From: Chele Locke MD Attending Dr: Dr. Chele Locke MD Status: REG CLI Ordering Dr: Chele Locke MD Date: 12/18/24 Location: [facility] Sex: F C Admitted: Reason For Study [...] ml EF(MOD-sp4): 36.2 % EF(sp4-el): 38.5 % SV(sp4-el): 31.6 ml LA A4 area: 22.9 cm2 LA dimension(2D): 3.9 cm RA A4 area: 20.7 cm2 TAPSE: 2.0 cm Doppler Measurements Calculations MV E max gagan: 92.9 cm/sec Ao V2 max: 115.5 cm/sec LV V1 max: 96.9 cm/sec Ao max P.3 mmHg LV V1 max P.8 mmHg PA V2 max: 63.1 cm/sec TR max gagan: 272.5 cm/sec TR max P.7 mmHg ECHO/Echo Complete Interpretation Summary Moderate generalized LV hypokinesis. Estimated LVEF 35-40%. Stage I diastolic dysfunction. There is mild biatrial dilatation. 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 Ordering Physician: Chele Locke Referring Physician: DAGO SMITH Performed By: Mitzy Lucio RDCS 12/18/24 1323 Date Chele Locke MD CC: Dr. Chele Locke MD; Dr. Dago Smith MD Date Dictated: 12/18/24 1008 Date Transcribed: 12/18/24 132 Educational Psychologist: Signed Normal [facility] Echocardiogram study reportO rdered By: Chele Locke on 12-18-2024 Study report [facility] [address] [place] [address] Echo Complete 12/18/24 100 MR#: [id number] Acct: [id number] Name: YOSEF JENNINGS Rep #:[id number] : 1940 84 From: Chele Locke MD Attending Dr: Dr. Chele Locke MD Status: REG CLI Ordering Dr: Chele Locke MD Date: Location: [facility] Sex: F C Admitted: Reason For Study [...] ml EF(MOD-sp4): 36.2 % EF(sp4-el): 38.5 % SV(sp4-el): 31.6 ml LA A4 area: 22.9 cm2 LA dimension(2D): 3.9 cm RA A4 area: 20.7 cm2 TAPSE: 2.0 cm Doppler Measurements & Calculations MV E max gagan: 92.9 cm/sec Ao V2 max: 115.5 cm/sec LV V1 max: 96.9 cm/sec Ao max P.3 mmHg LV V1 max P.8 mmHg PA V2 max: 63.1 cm/sec TR max gagan: 272.5 cm/sec TR max P.7 mmHg ECHO/Echo Complete Interpretation Summary Moderate generalized LV hypokinesis. Estimated LVEF 35-40%. Stage I diastolic dysfunction. There is mild biatrial dilatation. 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 Ordering Physician: Chele Locke Referring Physician: DAGO SMITH Performed By: Mitzy Lucio RDCS 12/18/24 1323 Date _ Chele Locke MD CC: Dr. Chele Locke MD; Dr. Dago Smith MD ~ Date Dictated: 12/18/24 1008 Date Transcribed: 12/18/24 1323 Educational Psychologist: Signed [facility] Work Phone: Office Visit Reporton 2024 Office Visit Report [facility] [address] [place] [address] OFFICE VISIT Date of Service: MR#: [id number] Acct: [id number] Patient: YOSEF JENNINGS Rep #: [id number] : 1940 Provider: Trip Green Age/Sex: 84/F [place] [facility] [place]: Signed Intake Vital Signs 10/24/24 08:55 [...] CC: Trip Green; Dr. Chele Locke MD [facility] Cardiology Visit Reporton Cardiology Visit Report [facility] [facility] [place] [address] OFFICE VISIT Date of Service: 10/24/24 MR#: [id number] Acct: [id number] Name: YOSEF JENNINGS Rep #: [id number] : 1940 Provider: Dr. 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 Normal [facility] Office Visit Reporton 2023 Office Visit Report [facility] [address] [place] [address] OFFICE VISIT Date of Service: 05/04/24 MR#: [id number] Acct: [id number] Patient: YOSEF JENNINGS Rep #: [id number] : 1940 Provider: Dr. Chele Locke MD Age/Sex: 83/F [place] [facility] [place]: Signed Intake Vital Signs 04/27/24 08:38 [...] past year?: No 11/13/24 1406 Date Chele Jensen Signature: Date (if applicable) CC: Normal [facility] Basic Metabolic Profile (BMP )on 05-02-2024 BUN/CRE 23.3 RATIO High 04-30 [facility] Comment on above: Performed By: #### L 500.2500 #### [facility] [address] [place], [address] CA,Total 9.3 mg/dL Normal 8.5-10.1 [facility] Comment on above: Performed By: #### L 500.2500 #### [facility] [address] [place], [address] Chloride [Moles/Vol] 105 mmol/L Normal 98-107 [facility] Comment on above: Performed By: #### L 500.2500 #### [facility] [address] [place], [address] CO2 [Moles/Vol] 27.0 mmol/L Normal 21.0-32.0 [facility] Comment on above: Performed By: #### L 500.2500 #### [facility] [address] [place], [address] Creatinine [Mass/Vol] 1.20 mg/dL High 0.55-1.02 [facility] Comment on above: Result Comment: The validity of the calculated GFR GFRAA in patients over 70 years has not been determined. Clinical correlation is essential. Performed By: #### L 500.2500 #### [facility] [address] [place], [address] EST GFR - AA 55 mL/min Low >60 [facility] Comment on above: Result Comment: Afri can Ug[place] GFR Calc Performed By: #### L 500.2500 #### [facility] [address] [place], [address] GAP 7 Normal 5-15 [facility] Comment on above: Performed By: #### L 500.2500 #### [facility] [address] [place], [address] GFR/1.73 sq M.predicted among non-blacks MDRD (S/P/Bld) [Vol rate/Area] 46 mL/min/{1.73_m2} Low >60 [facility] Comment on above: Result Comment: Non- GFR Calc Performed By: #### L 500.2500 #### [facility] [address] [place], [address] Glucose [Mass/Vol] 144 mg/dL High 74-106 [facility] Comment on above: Result Comment: Fast ing Glucose result greater than or equal to 126 mg/dL suggests DIABETES MELLITUS per A.D.A. criteria. Performed By: #### L 500.2500 #### [facility] [address] [place], [address] Potassium [Moles/Vol] 3.9 mmol/L Normal 3.5-5.1 [facility] Comment on above: Performed By: #### L 500.2500 #### [facility] [address] [place], [address] Sodium [Moles/Vol] 139 mmol/L Normal 136-145 [facility] Comment on above: Performed By: #### L 500.2500 #### [facility] [address] [place], [address] Urea nitrogen [Mass/Vol] 28 mg/dL High 7-18 [facility] Comment on above: Performed By: #### L 500.2500 #### [facility] [address] [place], [address] Thyroid Stim Hormone (TSH)on 05-02-2024 TSH 12.300 uIU/mL High 0.358-3.740 [facility] Comment on above: Performed By: #### L 501.9520 #### [facility] [address] [place], [address] Cardiology Visit Reporton Cardiology Visit Report [facility] [address] [place], [place] [address] OFFICE VISIT Date of Service: 04/27/24 MR#: [id number] Acct: [id number] Name: YOSEF JENNINGS Rep #: [id number] : 1940 Provider: Dr. 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 Normal [facility] Basophil percentageOrdered B y: Chele Locke on 07-29-2023 Chloride [Moles/Vol] 109 mmol/L 98-107 [facility] Glucose [Mass/Vol] 115 mg/dL 74-106 [facility] Comment on above: Fasting Glucose resu lt from 100 to 125 mg/dL suggests IMPAIRED HOMEOSTASIS per A.D.A. criteria. Potassium [Moles/Vol] 4.4 mmol/L 3.5-5.1 [facility] Sodium [Moles/Vol] 139 mmol/L 136-145 [facility] - Chemistry and C hemistry - challengeOrdered By: Chele Locke on 07-29-2023 CO2 [Moles/Vol] 26.0 mmol/L 21.0-32.0 [facility] Urea nitrogen/Creatinine [Mass ratio] 19.3 mg/mg 10-20 [facility] No Panel InformationOrdered By: Chele Locke on 07-29-2023 Estimated GFR (MDRD) Amer 56 mL/min >60 [facility] Comment on above: GFR Calc Estimated GFR (MDRD) Non-Af Amer 46 mL/min >60 [facility] Comment on above: Non- GFR Calc Serum or plasma calcium selina urement (mass/volume)Ordered By: Chele Locke on 07-29-2023 Calcium [Mass/Vol] 9.5 mg/dL 8.5-10.1 [facility] Serum or plasma creatinine m easurement (mass/volume)Ordered By: Chele Locke on 07-29-2023 Creatinine [Mass/Vol] 1.19 mg/dL 0.55-1.02 [facility] Comment on above: The validity of the calculated GFR & GFRAA in patients over 70 years has not been determined. Clinical correlation is essential. Serum or plasma urea nitroge n measurement (mass/volume)Ordered By: Chele Locke on 07-29-2023 Urea nitrogen [Mass/Vol] 23 mg/dL -18 [facility] Thin prep Papanicolaou smear with manual screeningOrdered By: Chele Locke on 07-29-2023 Thin prep Papanicolaou smear with manual screening 4 5-15 [facility] Absolute lymphocyte countOrd ered By: Dago Smith on 07-14-2023 Lymphocytes Auto (Unsp spec) [#/Vol] 1.84 10*3/uL 0.83-4.51 [facility] Basophil percentageOrdered B y: Dago Smith on 07-14-2023 Basophils/100 WBC (Bld) 0.6 % 0-1 [facility] Bilirubin [Mass/Vol] 0.20 mg/dL 0.20-1.00 [facility] Comment on above: For patients on eltr ombopag therapy, use of Dimension [place] TBIL is not recommended. Chloride [Moles/Vol] 108 mmol/L 98-107 [facility] Cholesterol [Mass/Vol] 192 mg/dL <200 [facility] Comment on above: <200 mg/dL Desirable 200-240 mg/dL Borderline >240 mg/dL High Risk Eosinophils/100 WBC (Bld) 1.9 % 0-5 [facility] Glucose [Mass/Vol] 100 mg/dL 74-106 [facility] Comment on above: Fasting Glucose resu lt from 100 to 125 mg/dL suggests IMPAIRED HOMEOSTASIS per A.D.A. criteria. Neutrophils (Bld) [#/Vol] 5.8 10*3/uL 2.0-7.7 [facility] Neutrophils/100 WBC (Bld) 66.0 % 47-70 [facility] Potassium [Moles/Vol] 4.1 mmol/L 3.5-5.1 [facility] Protein [Mass/Vol] 6.9 g/dL 6.4-8.2 [facility] Sodium [Moles/Vol] 138 mmol/L 136-145 [facility] Triglyceride [Mass/Vol] 100 mg/dL <199 [facility] Comment on above: The drugs N-Acetylcy steine and Metamizole may falsely depress this assay.Serum Triglycerides Reference Interval Normal <150 mg/dL Borderline high 150 - 199 mg/dL High 200 - 499 mg/dL Very High > or = 500 mg/dL WBC (Bld) [#/Vol] 8.7 10*3/uL 4.4-11.0 [facility] Blood erythrocytes count (nu mber/volume)Ordered By: Dago Smith on 07-14-2023 RBC (Bld) [#/Vol] 4.27 10*6/uL 4.2-5.4 [facility] Blood hemoglobin measurement (mass/volume)Ordered By: Dago Smith on 07-14-2023 Hemoglobin (Bld) [Mass/Vol] 12.0 g/dL 12.0-15.0 [facility] Blood lymphocytes/100 leukoc ytesOrdered By: Dago Smith on 07-14-2023 Lymphocytes/100 WBC (Bld) 21.1 % 19-41 [facility] Blood monocytes/100 leukocyt esOrdered By: Dago Smith on 07-14-2023 Monocytes/100 WBC (Bld) 9.6 % 0-10 [facility] Blood platelet mean volumeOr dered By: Dago Smith on 07-14-2023 Platelet mean volume (Bld) [Entitic vol] 9.4 fL 6.2-12.0 [facility] Determination of erythrocyte mean corpuscular volume (MCV)Ordered By: Dago Smith on 07-14-2023 MCV (RBC) [Entitic vol] 91.1 fL 81-99 [facility] Hematocrit Auto (Bld) [Volum e fraction]Ordered By: Dago Smith on 07-14-2023 Hematocrit (Bld) [Volume fraction] 38.9 % 37-47 [facility] - Chemistry and C hemistry - challengeOrdered By: [facility] Carey[facility]an on 07-14-2023 ALP [Catalytic activity/Vol] 110 U/L 45-117 [facility] ALT [Catalytic activity/Vol] 22 U/L 13-56 [facility] CO2 [Moles/Vol] 26.0 mmol/L 21.0-32.0 [facility] Free T4 [Mass/Vol] 0.73 ng/dL 0.76-1.46 [facility] Globulin (S) [Mass/Vol] 3.8 g/dL 2.2-4.2 [facility] Urea nitrogen/Creatinine [Mass ratio] 17.9 mg/mg 10-20 [facility] - Hematology and Cell countsOrdered By: Dago Smith on 07-14-2023 Erythrocyte distribution width (RBC) [Entitic vol] 48.0 fL 35.1-43.9 [facility] Erythrocyte distribution width (RBC) [Ratio] 14.5 % 11.6-14.6 [facility] Immature granulocytes/100 WBC (Bld) 0.800 % 0.0-0.9 [facility] Comment on above: IG% - Immature Granu locytes (promyelocytes, myelocytes and metamyelocytes) > 1% indicates that a LEFT SHIFT is Present. MCH (RBC) [Entitic mass] 28.1 pg 27.0-32.0 [facility] Nucleated RBC/100 WBC (Bld) [Ratio] 0 % 0-5 [facility] MCHC Auto (RBC) [Mass/Vol]Or dered By: Dago Smith on 07-14-2023 MCHC (RBC) [Mass/Vol] 30.8 g/dL 32-36 [facility] No Panel InformationOrdered By: Dago Smith on 07-14-2023 Estimated GFR (MDRD) Amer 54 mL/min >60 [facility] Comment on above: GFR Calc Estimated GFR (MDRD) Non-Af Amer 44 mL/min >60 [facility] Comment on above: Non- GFR Calc Thyroid Stimulating Hormone (TSH) 6.74 uIU/mL 0.358-3.74 [facility] Platelets bldOrdered By: Jose Smith on 07-14-2023 Platelets (Bld) [#/Vol] 257 10*3/uL 150-450 [facility] Serum or plasma albumin selina urement (mass/volume)Ordered By: Dago Smith on 07-14-2023 Albumin [Mass/Vol] 3.1 g/dL 3.2-5.0 [facility] Serum or plasma albumin/glob ulin mass ratioOrdered By: Dago Smith on 07-14-2023 Albumin/Globulin [Mass ratio] 0.8 {ratio} 0.9-2.4 [facility] Serum or plasma calcium selina urement (mass/volume)Ordered By: Dago Smith on 07-14-2023 Calcium [Mass/Vol] 9.3 mg/dL 8.5-10.1 [facility] Serum or plasma cholesterol in HDL measurement (mass/volume)Ordered By: Dago Smith on 07-14-2023 Cholesterol in HDL [Mass/Vol] 58 mg/dL >40 [facility] Comment on above: The drugs N-Acetylcy steine and Metamizole may falsely depress this assay. Reference Range HDL <40 mg/dL Low HDL Cholesterol HDL >or= 60 mg/dL High HDL Cholesterol Serum or plasma cholesterol in VLDL measurement (mass/volume)Ordered By: Dago Smith on 07-14-2023 Cholesterol in VLDL [Mass/Vol] 20 mg/dL 5-40 [facility] Serum or plasma creatinine m easurement (mass/volume)Ordered By: Dago Smith on 07-14-2023 Creatinine [Mass/Vol] 1.23 mg/dL 0.55-1.02 [facility] Comment on above: The validity of the calculated GFR & GFRAA in patients over 70 years has not been determined. Clinical correlation is essential. Serum or plasma low density lipoprotein (LDL) cholesterol measurement (mass/volume)Ordered By: Dago Smith on 07-14-2023 Cholesterol in LDL [Mass/Vol] 114 mg/dL 0-130 [facility] Serum or plasma urea nitroge n measurement (mass/volume)Ordered By: Dago Smith on 07-14-2023 Urea nitrogen [Mass/Vol] 22 mg/dL 7-18 [facility] Thin prep Papanicolaou smear with manual screeningOrdered By: mita Smith on 07-14-2023 Thin prep Papanicolaou smear with manual screening 12 U/L 15-37 [facility] Thin prep Papanicolaou smear with manual screening 4 5-15 [facility] - Microbiology an d Antimicrobial susceptibilityon 06-16-2023 SARS-CoV-2 (COVID-19) RNA JUNIOR+probe Ql (Unsp spec) Detected [facility] No Panel Informationon 06-16 POC Nasal Swab Influenza A,B Not detected [facility] POC Nasal Swab RSV Not detected [facility] - Chemistry and C hemistry - challengeOrdered By: Dr. Smith on 10-21-2022 Free T4 [Mass/Vol] 0.58 ng/dL 0.76-1.46 [facility] No Panel InformationOrdered By: Dr. Locke on 10-21-2022 Thyroid Stimulating Hormone (TSH) 9.45 uIU/mL 0.358-3.74 [facility] Absolute lymphocyte countOrd ered By: Michael Sánchez on 07-31-2022 Lymphocytes Auto (Unsp spec) [#/Vol] 2.01 10*3/uL 0.83-4.51 [facility] Basophil percentageOrdered B y: Michael Sánchez on 07-31-2022 Basophils/100 WBC (Bld) 0.7 % 0-1 [facility] Chloride [Moles/Vol] 112 mmol/L 98-107 [facility] Eosinophils/100 WBC (Bld) 1.6 % 0-5 [facility] Glucose [Mass/Vol] 110 mg/dL 74-106 [facility] Comment on above: Fasting Glucose resu lt from 100 to 125 mg/dL suggests IMPAIRED HOMEOSTASIS per A.D.A. criteria. Lactate [Moles/Vol] 0.4 mmol/L 0.4-2.0 [facility] Neutrophils (Bld) [#/Vol] 4.1 10*3/uL 2.0-7.7 [facility] Neutrophils/100 WBC (Bld) 58.3 % 47-70 [facility] Potassium [Moles/Vol] 4.6 mmol/L 3.5-5.1 [facility] Comment on above: Moderate Hemolysis, Result may be falsely increased. Sodium [Moles/Vol] 141 mmol/L 136-145 [facility] WBC (Bld) [#/Vol] 7.0 10*3/uL 4.4-11.0 [facility] Blood erythrocytes count (nu mber/volume)Ordered By: Michael Sánchez on 07-31-2022 RBC (Bld) [#/Vol] 4.25 10*6/uL 4.2-5.4 [facility] Blood hemoglobin measurement (mass/volume)Ordered By: Michael Sánchez on 07-31-2022 Hemoglobin (Bld) [Mass/Vol] 12.5 g/dL 12.0-15.0 [facility] [facility] Blood lymphocytes/100 leukoc ytesOrdered By: Michael Sánchez on 07-31-2022 Lymphocytes/100 WBC (Bld) 28.9 % 19-41 [facility] Blood manual differential co mment interpretation (narrative result)Ordered By: Michael Sánchez on 07-31-2022 Manual differential comment Shant (Bld) [Interp] SCANNED [facility] Blood monocytes/100 leukocyt esOrdered By: Michael Sánchez on 07-31-2022 Monocytes/100 WBC (Bld) 10.2 % 0-10 [facility] Blood platelet adequacy dete ction by light microscopyOrdered By: Michael Sánchez on 07-31-2022 Platelets LM Ql (Bld) ADEQUATE ADEQ [facility] Blood platelet mean volumeOr dered By: Michael Sánchez on 07-31-2022 Platelet mean volume (Bld) [Entitic vol] 10.7 fL 6.2-12.0 [facility] Determination of erythrocyte mean corpuscular volume (MCV)Ordered By: Michael Sánchez on 07-31-2022 MCV (RBC) [Entitic vol] 90.6 fL 81-99 [facility] Erythrocyte sedimentation ra teOrdered By: Michael Sánchez on 07-31-2022 ESR (Bld) [Velocity] 13 mm/h 0-30 [facility] Hematocrit Auto (Bld) [Volum e fraction]Ordered By: Michael Sánchez on 07-31-2022 Hematocrit (Bld) [Volume fraction] 38.5 % 37-47 [facility] Laboratory - Chemistry and C hemistry - challengeOrdered By: Michael Sánchez on 07-31-2022 CO2 [Moles/Vol] 25.0 mmol/L 21.0-32.0 [facility] Urea nitrogen/Creatinine [Mass ratio] 34.8 mg/mg 10-20 [facility] - Hematology and Cell countsOrdered By: Michael Sánchez on 07-31-2022 Erythrocyte distribution width (RBC) [Entitic vol] 47.3 fL 35.1-43.9 [facility] Erythrocyte distribution width (RBC) [Ratio] 14.3 % 11.6-14.6 [facility] Immature granulocytes/100 WBC (Bld) 0.300 % 0.0-0.9 [facility] Comment on above: IG% - Immature Granu locytes (promyelocytes, myelocytes and metamyelocytes) > 1% indicates that a LEFT SHIFT is Present. MCH (RBC) [Entitic mass] 29.4 pg 27.0-32.0 [facility] Nucleated RBC/100 WBC (Bld) [Ratio] 0 % 0-5 [facility] MCHC Auto (RBC) [Mass/Vol]Or dered By: Michael Sánchez on 07-31-2022 MCHC (RBC) [Mass/Vol] 32.5 g/dL 32-36 [facility] No Panel InformationOrdered By: Michael Sánchez on 07-31-2022 Estimated Creatinine Clearance Calc 36.88 ml/min [facility] Estimated GFR (MDRD) Amer 60 mL/min >60 [facility] Comment on above: GFR Calc Estimated GFR (MDRD) Non-Af Amer 50 mL/min >60 [facility] Comment on above: Non- GFR Calc Platelets bldOrdered By: Joseph Sánchez on 07-31-2022 Platelets (Bld) [#/Vol] 139 10*3/uL 150-450 [facility] Serum or plasma C reactive p rotein measurement (mass/volume)Ordered By: Michael Sánchez on 07-31-2022 CRP [Mass/Vol] mg/L 0.0-3.0 [facility] Comment on above: C-Reactive Protein ( CRP) provides useful information for thediagnosis, therapy and monitoring of inflammatory processesand associated diseases. For the evaluation of Relative Riskfor Cardiovascular Disease, a High Sensitivity CRP (HSCRP)should be ordered. Serum or plasma calcium selina urement (mass/volume)Ordered By: Michael Sánchez on 07-31-2022 Calcium [Mass/Vol] 9.1 mg/dL 8.5-10.1 [facility] Serum or plasma creatinine m easurement (mass/volume)Ordered By: Michael Sánchez on 07-31-2022 Creatinine [Mass/Vol] 1.12 mg/dL 0.55-1.02 [facility] Comment on above: The validity of the calculated GFR & GFRAA in patients over 70 years has not been determined. Clinical correlation is essential. Serum or plasma urea nitroge n measurement (mass/volume)Ordered By: Michael Sánchez on 07-31-2022 Urea nitrogen [Mass/Vol] 39 mg/dL 7-18 [facility] Thin prep Papanicolaou smear with manual screeningOrdered By: Michael Sánchez on 07-31-2022 Thin prep Papanicolaou smear with manual screening 4 5-15 [facility] Vital Signs Date Time Vital Sign Value Performing Clinician Faci lity 03-28-2025 12:58-0400 Body height 167.[address] Dago Smith MD Work Phone: [facility] 03-28-2025 12:58-0400 Body mass index (BMI) [Ratio] 40 kg/m2 Dr. Dago Smith MD Work Phone: [facility] 03-28-2025 12:58-0400 Body weight 112.[address] Dago Smith MD Work Phone: [facility] 03-28-2025 12:58-0400 Diastolic blood pressure 84 mm[Hg] Dr. Dago Smith MD Work Phone: [facility] 03-28-2025 12:58-0400 Heart rate 77 /min Dr. Dago Smith MD Work Phone: [facility] 03-28-2025 12:58-0400 Respiratory rate 20 /min Dr. Dago Smith MD Work Phone: [facility] 03-28-2025 12:58-0400 Systolic blood pressure 149 mm[Hg] Dr. Dago Smith MD Work Phone: [facility] 03-26-2025 15:29-0400 Body mass index (BMI) [Ratio] 37.1 kg/m2 Dr. Dago Smith MD Work Phone: [facility] 03-26-2025 15:29-0400 Body temperature 98.2 [degF] Dr. Dago Smith MD Work Phone: [facility] 03-26-2025 15:29-0400 Body weight 104.[address] Dago Smith MD Work Phone: [facility] 03-26-2025 15:29-0400 Diastolic blood pressure 78 mm[Hg] Dr. Dago Smith MD Work Phone: [facility] 03-26-2025 15:29-0400 Heart rate 68 /min Dr. Dago Smith MD Work Phone: [facility] 03-26-2025 15:29-0400 Systolic blood pressure 128 mm[Hg] Dr. Dago Smith MD Work Phone: [facility] 12-26-2024 14:55-0400 Body height [address] Dago Smith MD Work Phone: [facility] 12-26-2024 14:55-0400 Body mass index (BMI) [Ratio] 39.2 kg/m2 Dr. Dago Smith MD Work Phone: [facility] 12-26-2024 14:55-0400 Body weight 110.[address] Dago Smith MD Work Phone: [facility] 12-26-2024 14:55-0400 Diastolic blood pressure 71 mm[Hg] Dr. Dago Smith MD Work Phone: [facility] 12-26-2024 14:55-0400 Heart rate 61 /min Dr. Dago Smith MD Work Phone: [facility] 12-26-2024 14:55-0400 Respiratory rate 18 /min Dr. Dago Smith MD Work Phone: [facility] 12-26-2024 14:55-0400 Systolic blood pressure 140 mm[Hg] Dr. Dago Smith MD Work Phone: [facility] 10-27-2024 16:20-0400 Diastolic blood pressure 86 mm[Hg] Dr. Dago Smith MD Work Phone: [facility] 10-27-2024 16:20-0400 Heart rate 69 /min Dr. Dago Smith MD Work Phone: [facility] 10-27-2024 16:20-0400 Respiratory rate 18 /min Dr. Dago Smith MD Work Phone: [facility] 10-27-2024 16:20-0400 Systolic blood pressure 141 mm[Hg] Dr. Dago Smith MD Work Phone: [facility] 10-24-2024 08:55-0400 Body height [address] Dago Smith MD Work Phone: [facility] 10-24-2024 08:55-0400 Body mass index (BMI) [Ratio] 40.1 kg/m2 Dr. Dago Smith MD Work Phone: [facility] 10-24-2024 08:55-0400 Body weight 113.[address] Dago Smith MD Work Phone: [facility] 10-24-2024 08:55-0400 Diastolic blood pressure 68 mm[Hg] Dr. Dago Smith MD Work Phone: [facility] 10-24-2024 08:55-0400 Heart rate 53 /min Dr. Dago Smith MD Work Phone: [facility] 10-24-2024 08:55-0400 Respiratory rate 18 /min Dr. Dago Smith MD Work Phone: [facility] 10-24-2024 08:55-0400 Systolic blood pressure 127 mm[Hg] Dr. Dago Smith MD Work Phone: [facility] 10-03-2023 11:11-0400 Body temperature 97.2 [degF] Dr. Dago Smith Work Phone: [facility] 10-03-2023 11:11-0400 Diastolic blood pressure 97 mm[Hg] Dr. Dago Smith Work Phone: [facility] 10-03-2023 11:11-0400 Heart rate 74 /min Dr. Dago Smith Work Phone: [facility] 10-03-2023 11:11-0400 Respiratory rate 16 /min Dr. Dago Smith Work Phone: [facility] 10-03-2023 11:11-0400 SaO2% (BldA) [Mass fraction] 96 % Dr. Dago Smith Work Phone: [facility] 10-03-2023 11:11-0400 Systolic blood pressure 160 mm[Hg] Dr. Dago Smith Work Phone: [facility] 10-03-2023 08:54-0400 Body height [address] Dago Smith Work Phone: [facility] 10-03-2023 08:54-0400 Body mass index (BMI) [Ratio] 36.9 kg/m2 Dr. Dago Smith Work Phone: [facility] 10-03-2023 08:54-0400 Body weight 104.[address] Dago Smith Work Phone: [facility] 07-26-2023 13:16-0500 Body height 167.[address] Dago Smith Work Phone: [facility] 07-26-2023 13:16-0500 Body mass index (BMI) [Ratio] 38.4 kg/m2 Dr. Dago Smith Work Phone: [facility] 07-26-2023 13:16-0500 Body weight 107.[address] Dago Smith Work Phone: [facility] 07-26-2023 13:16-0500 Diastolic blood pressure 87 mm[Hg] Dr. Dago Smith Work Phone: [facility] 07-26-2023 13:16-0500 Heart rate 90 /min Dr. Dago Smith Work Phone: [facility] 07-26-2023 13:16-0500 Respiratory rate 16 /min Dr. Dago Smith Work Phone: [facility] 07-26-2023 13:16-0500 Systolic blood pressure 144 mm[Hg] Dr. Dago Smith Work Phone: [facility] 07-14-2023 15:24-0500 Body height 167.[address] Dago Smith Work Phone: [facility] 07-14-2023 15:24-0500 Body mass index (BMI) [Ratio] 38.4 kg/m2 Dr. Dago Smith Work Phone: [facility] 07-14-2023 15:24-0500 Body temperature 97.5 [degF] Dr. Dago Smith Work Phone: [facility] 07-14-2023 15:24-0500 Body weight 107.[address] Dago Smith Work Phone: [facility] 07-14-2023 15:24-0500 Diastolic blood pressure 82 mm[Hg] Dr. Dago Smith Work Phone: [facility] 07-14-2023 15:24-0500 Heart rate 91 /min Dr. Dago Smith Work Phone: [facility] 07-14-2023 15:24-0500 Respiratory rate 16 /min Dr. Dago Smith Work Phone: [facility] 07-14-2023 15:24-0500 SaO2% (BldA) [Mass fraction] 97 % Dr. Dago Smith Work Phone: [facility] 07-14-2023 15:24-0500 Systolic blood pressure 140 mm[Hg] Dr. Dago Smith Work Phone: [facility] 06-16-2023 10:26-0500 Body temperature 98.1 [degF] Dr. Dago Smith Work Phone: [facility] 06-16-2023 10:26-0500 Diastolic blood pressure 97 mm[Hg] Dr. Dago Smith Work Phone: [facility] 06-16-2023 10:26-0500 Heart rate 84 /min Dr. Dago Smith Work Phone: [facility] 06-16-2023 10:26-0500 SaO2% (BldA) [Mass fraction] 95 % Dr. Dago Smith Work Phone: [facility] 06-16-2023 10:26-0500 Systolic blood pressure 163 mm[Hg] Dr. Dago Smith Work Phone: [facility] 12-23-2022 13:41-0400 Body height 167.[address] Dago Smith Work Phone: [facility] 12-23-2022 13:41-0400 Body mass index (BMI) [Ratio] 44.9 kg/m2 Dr. Dago Smith Work Phone: [facility] 12-23-2022 13:41-0400 Body weight 126.[address] Dago Smith Work Phone: [facility] 12-23-2022 13:41-0400 Diastolic blood pressure 85 mm[Hg] Dr. Dago Smith Work Phone: [facility] 12-23-2022 13:41-0400 Heart rate 84 /min Dr. Dago Smith Work Phone: [facility] 12-23-2022 13:41-0400 Respiratory rate 16 /min Dr. Dago Smith Work Phone: [facility] 12-23-2022 13:41-0400 Systolic blood pressure 132 mm[Hg] Dr. Dago Smith Work Phone: [facility] 10-29-2022 08:23-0400 Body temperature 96 [degF] Dr. Dago Smith Work Phone: [facility] 10-29-2022 08:23-0400 Diastolic blood pressure 96 mm[Hg] Dr. Dago Smith Work Phone: [facility] 10-29-2022 08:23-0400 Heart rate 89 /min Dr. Dago Smith Work Phone: [facility] 10-29-2022 08:23-0400 Respiratory rate 16 /min Dr. Dago Smith Work Phone: [facility] 10-29-2022 08:23-0400 Systolic blood pressure 160 mm[Hg] Dr. Dago Smith Work Phone: [facility] 10-08-2022 08:26-0400 Body temperature 95.6 [degF] Dr. Dago Smith Work Phone: [facility] 10-08-2022 08:26-0400 Diastolic blood pressure 99 mm[Hg] Dr. Dago Smith Work Phone: [facility] 10-08-2022 08:26-0400 Heart rate 78 /min Dr. Dago Smith Work Phone: [facility] 10-08-2022 08:26-0400 Systolic blood pressure 157 mm[Hg] Dr. Dago Smith Work Phone: [facility] 10-05-2022 12:59-0400 Body height 167.[address] Dago Smith Work Phone: [facility] 10-05-2022 12:59-0400 Body mass index (BMI) [Ratio] 33.7 kg/m2 Dr. Dago Smith Work Phone: [facility] 10-05-2022 12:59-0400 Body weight 94.[address] Dago Smith Work Phone: [facility] 10-05-2022 12:59-0400 Diastolic blood pressure 93 mm[Hg] Dr. Dago Smith Work Phone: [facility] 10-05-2022 12:59-0400 Heart rate 94 /min Dr. Dago Smith Work Phone: [facility] 10-05-2022 12:59-0400 Respiratory rate 16 /min Dr. Dago Smith Work Phone: [facility] 10-05-2022 12:59-0400 Systolic blood pressure 148 mm[Hg] Dr. Dago Smith Work Phone: [facility] 10-01-2022 08:20-0400 Respiratory rate 18 /min Dr. Dago Smith Work Phone: [facility] 09-03-2022 08:29-0500 Body temperature 95.5 [degF] Dr. Dago Smith Work Phone: [facility] 09-03-2022 08:29-0500 Diastolic blood pressure 90 mm[Hg] Dr. Dago Smith Work Phone: [facility] 09-03-2022 08:29-0500 Heart rate 102 /min Dr. Dago Smith Work Phone: [facility] 09-03-2022 08:29-0500 Respiratory rate 18 /min Dr. Dago Smith Work Phone: [facility] 09-03-2022 08:29-0500 Systolic blood pressure 152 mm[Hg] Dr. Dago Smith Work Phone: [facility] 08-24-2022 10:56-0500 Body height 167.[address] aDgo Smith Work Phone: [facility] 08-24-2022 10:56-0500 Body mass index (BMI) [Ratio] 34 kg/m2 Dr. Dago Smith Work Phone: [facility] 08-24-2022 10:56-0500 Body temperature 96.4 [degF] Dr. Dago Smith Work Phone: [facility] 08-24-2022 10:56-0500 Body weight 95.[address] Dago Smith Work Phone: [facility] 08-24-2022 10:56-0500 Diastolic blood pressure 62 mm[Hg] Dr. Dago Smith Work Phone: [facility] 08-24-2022 10:56-0500 Heart rate 63 /min Dr. Dago Smith Work Phone: [facility] 08-24-2022 10:56-0500 Respiratory rate 16 /min Dr. Dago Smith Work Phone: [facility] 08-24-2022 10:56-0500 SaO2% (BldA) [Mass fraction] 98 % Dr. Dago Smith Work Phone: [facility] 08-24-2022 10:56-0500 Systolic blood pressure 124 mm[Hg] Dr. Dago Smith Work Phone: [facility] 08-19-2022 16:28-0500 Body height 167.[address] Dago Smith Work Phone: [facility] 08-19-2022 16:28-0500 Body mass index (BMI) [Ratio] 34.8 kg/m2 Dr. Dago Smith Work Phone: [facility] 08-19-2022 16:28-0500 Body temperature 96.5 [degF] Dr. Dago Smith Work Phone: [facility] 08-19-2022 16:28-0500 Body weight 97.[address] Dago Smith Work Phone: [facility] 08-19-2022 16:28-0500 Diastolic blood pressure 99 mm[Hg] Dr. Dago Smith Work Phone: [facility] 08-19-2022 16:28-0500 Heart rate 90 /min Dr. Dago Smith Work Phone: [facility] 08-19-2022 16:28-0500 Respiratory rate 16 /min Dr. Dago Smith Work Phone: [facility] 08-19-2022 16:28-0500 SaO2% (BldA) [Mass fraction] 99 % Dr. Dago Smith Work Phone: [facility] 08-19-2022 16:28-0500 Systolic blood pressure 160 mm[Hg] Dr. Dago Smith Work Phone: [facility] 08-13-2022 08:20-0500 Body temperature 97.3 [degF] Dr. Dago Smith Work Phone: [facility] 08-13-2022 08:20-0500 Diastolic blood pressure 87 mm[Hg] Dr. Dago Smith Work Phone: [facility] 08-13-2022 08:20-0500 Heart rate 97 /min Dr. Dago Smith Work Phone: [facility] 08-13-2022 08:20-0500 Systolic blood pressure 155 mm[Hg] Dr. Dago Smith Work Phone: [facility] 08-11-2022 17:14-0500 Body height 167.[address] Dago Smith Work Phone: [facility] 08-11-2022 17:14-0500 Body mass index (BMI) [Ratio] 34.8 kg/m2 Dr. Dago Smith Work Phone: [facility] 08-11-2022 17:14-0500 Body temperature 97 [degF] Dr. Dago Smith Work Phone: [facility] 08-11-2022 17:14-0500 Body weight 97.[address] Dago Smith Work Phone: [facility] 08-11-2022 17:14-0500 Diastolic blood pressure 91 mm[Hg] Dr. Dago Smith Work Phone: [facility] 08-11-2022 17:14-0500 Heart rate 102 /min Dr. Dago Smith Work Phone: [facility] 08-11-2022 17:14-0500 Respiratory rate 14 /min Dr. Dago Smith Work Phone: [facility] 08-11-2022 17:14-0500 SaO2% (BldA) [Mass fraction] 96 % Dr. Dago Smith Work Phone: [facility] 08-11-2022 17:14-0500 Systolic blood pressure 113 mm[Hg] Dr. Dago Smith Work Phone: [facility] 07-31-2022 03:12-0500 Heart rate 69 /min Dr. Dago Smith Work Phone: [facility] 07-31-2022 03:12-0500 Respiratory rate 15 /min Dr. Dago Smith Work Phone: [facility] 07-31-2022 03:12-0500 SaO2% (BldA) [Mass fraction] 98 % Dr. Dago Smith Work Phone: [facility] 07-31-2022 01:53-0500 Diastolic blood pressure 85 mm[Hg] Dr. Dago Smith Work Phone: [facility] 07-31-2022 01:53-0500 Systolic blood pressure 169 mm[Hg] Dr. Dago Smith Work Phone: [facility] 07-31-2022 01:44-0500 Body height 167.[address] Dago Smith Work Phone: [facility] 07-31-2022 01:44-0500 Body mass index (BMI) [Ratio] 35.3 kg/m2 Dr. Dago Smith Work Phone: [facility] 07-31-2022 01:44-0500 Body temperature 98 [degF] Dr. Dago Smith Work Phone: [facility] 07-31-2022 01:44-0500 Body weight 99.[address] Dago Smith Work Phone: [facility] 05-11-2022 12:28-0400 Body temperature 98 [degF] Dr. Dago Smith Work Phone: [facility] 05-11-2022 12:28-0400 Diastolic blood pressure 82 mm[Hg] Dr. Dago Smith Work Phone: [facility] 05-11-2022 12:28-0400 Heart rate 57 /min Dr. Dago Smith Work Phone: [facility] 05-11-2022 12:28-0400 Respiratory rate 14 /min Dr. Dago Smith Work Phone: [facility] 05-11-2022 12:28-0400 SaO2% (BldA) [Mass fraction] 99 % Dr. Dago Smith Work Phone: [facility] 05-11-2022 12:28-0400 Systolic blood pressure 132 mm[Hg] Dr. Dago Smith Work Phone: [facility] Encounters Encounter Date Encounter Type Care Provider Facility Start: 04-06-2025 ambulatory Chele Locke Facility:[facility] Start: 03-28-2025 End: 03-28-[address] Chele Locke MD -[facility] Work Phone: Start: 03-28-2025 End: 03-28-[address] Dago Smith MD Work Phone: -[facility] Start: 03-26-2025 End: 03-26-[address] Katheryn Aggarwal MD -[facility] Work Phone: Start: 03-26-2025 End: 03-26-[address] Dago Smith MD Work Phone: -[facility] Start: 02-26-2025 ambulatory Chele Chucky Facility:[facility] Start: 02-26-2025 Non-patient / Non-visit Dr. Halima GUAMAN -[facility] Start: 02-26-2025 End: 02-26-[address] Dago Smith MD Work Phone: -[facility] Services Start: 02-26-2025 End: 02-26-[address] Chele Locke MD -[facility] Work Phone: Start: 02-26-2025 End: 02-26-2025 ambulatory Chele Chucky Facility:[facility] Start: 02-07-2025 End: 02-07-[address] Dago Smith MD Work Phone: -Laboratory Start: 02-07-2025 End: 02-07-[address] Chele Locke MD -Laboratory Work Phone: Start: 02-07-2025 End: 02-07-[address] [facility] Facility:[facility] Start: 01-09-2025 Non-patient / Non-visit Dr. Katheryn he MD -[facility] Work Phone: Start: 12-26-2024 End: 12-26-[address] Chele Locke MD -[facility] Work Phone: Start: 12-26-2024 End: 12-26-[address] Dago Smith MD Work Phone: [facility] Work Phone: Start: 12-18-2024 Non-patient / Non-visit Dr. Chele taylor MD -[facility] Start: 12-18-2024 End: 12-18-[address] Dago Smith MD Work Phone: [facility] Work Phone: Start: 12-18-2024 End: 12-18-[address] Chele Locke MD -[facility] Work Phone: Start: 12-18-2024 End: 12-18-2024 ambulatory Chele Chucky Facility:[facility] Start: 10-27-2024 Non-patient / Non-visit Trip valverde -[facility] Work Phone: Start: 10-27-2024 End: 10-27-[address] Chele Locke MD -[facility] Work Phone: Start: 10-27-2024 End: 10-27-2024 [facility] Start: 10-24-2024 End: 10-24-[address] Chele Locke MD -[facility] Work Phone: Start: 10-24-2024 End: 10-24-2024 ambulatory Chele Chucky Facility:[facility] Start: 05-04-2024 ambulatory Chele Chucky Facility:[facility] Start: 05-02-2024 End: 05-02-2024 ambulatory Chele Chucky Facility:[facility] Start: 04-27-2024 End: 04-27-2024 ambulatory Chele Chucky Facility:[facility] Start: 10-03-2023 End: 10-03-2023 Emergency department patient visit Dr. Dago Smith Work Phone: [facility]Emergency Department Work Phone: Start: 07-29-2023 End: 07-29-[address] Dago Smith Work Phone: [facility] Work Phone: Start: 07-29-2023 End: 07-29-[address] Dago Smith Work Phone: [facility]-Laboratory Work Phone: Start: 07-26-2023 End: 07-26-[address] Dago Smith Work Phone: [facility] Work Phone: Start: 07-14-2023 End: 07-14-[address] Dago Smith Work Phone: [facility] Work Phone: Start: 07-14-2023 End: 07-14-[address] Dago Smith Work Phone: [facility] Work Phone: Start: 06-16-2023 End: 06-16-[address] Dago Smith Work Phone: [facility] Work Phone: Start: 01-04-2023 Non-patient / Non-visit Dr. Reg Smith Work Phone: [facility] Start: 01-04-2023 End: 01-04-[address] Dago Smith Work Phone: [facility] Work Phone: Start: 01-04-2023 End: 01-04-[address] [facility] Start: 12-23-2022 End: 12-23-[address] Dago Smith Work Phone: [facility] Work Phone: Start: 11-27-2022 Non-patient / Non-visit Dr. Reg Smith Work Phone: [facility] Work Phone: Start: 11-06-2022 Non-patient / Non-visit Dr. Reg Smith Work Phone: [facility] Start: 11-02-2022 Non-patient / Non-visit Dr. Reg Smith Work Phone: [facility] Start: 11-02-2022 End: 11-02-[address] Dago Smith Work Phone: [facility] Work Phone: Start: 11-02-2022 End: 11-02-[address] [facility] Start: 10-29-2022 End: 11-08-[address] Dago Smith Work Phone: [facility] Work Phone: Start: 10-29-2022 End: 11-08-[address] Dago Smith Work Phone: [facility] Start: 10-29-[address] Omar Smith Work Phone: [facility] Start: 10-08-2022 End: 10-09-[address] Dago Smith Work Phone: [facility] Work Phone: Start: 10-08-2022 End: 10-09-[address] Dago Smith Work Phone: [facility] Start: 10-05-2022 End: 10-05-[address] Dago Smith Work Phone: [facility] Start: 09-03-2022 End: 09-08-[address] Dago Smith Work Phone: [facility] Work Phone: Start: 09-03-2022 End: 09-08-[address] [facility]ago [facility] Start: 09-03-[address] Omar Smith Work Phone: [facility] Start: 09-01-2022 End: 09-01-2022 Non-patient / Non-visit Dr. Dago Smith Work Phone: [facility] Start: 09-01-2022 End: 09-01-[address] Dago Smith Work Phone: [facility] Work Phone: Start: 09-01-2022 End: 09-01-[address] [facility] Start: 08-24-2022 End: 08-24-[address] Dago Smith Work Phone: [facility] Start: 08-19-2022 End: 08-19-2022 Emergency department patient visit Dr. Dago Smith Work Phone: [facility]Emergency Department Start: 08-19-[address] [facility] Start: 08-11-2022 End: 08-11-2022 Emergency department patient visit Dr. Dago Smith Work Phone: [facility] Start: 07-31-2022 End: 07-31-2022 Emergency department patient visit Dr. Dago Smith Work Phone: [facility] Start: 05-11-2022 End: 05-11-[address] Dago Smith Work Phone: [facility] Procedures Date Procedure Procedure Detail Performing Clinician Start: 02-26-2025 Cardiovascular stress test using pharmacologic stress agent Dr. Dago Smith MD Work Phone: Start: 10-03-2023 X-ray of chest posteroanterior view Dr. Dago Smith Work Phone: Start: 01-04-2023 Cardiovascular stress test using pharmacologic stress agent Dr. Dago Smith Work Phone: Start: 08-11-2022 Diagnostic radiography of finger Dr. Dago Smith Work Phone: Start: 07-31-[address] Dago pena Work Phone: Start: 05-11-[address] Dago pena Work Phone: History of cataract extraction History of cataract surgery Dr. Dago Smith Work Phone: Plan of Treatment Date Care Activity Detail Author Start: 10-03-2023 [facility] Start: 08-11-2022 Simple repair scalp/neck/ax/genit/trunk 2.5cm/< RPR S/N/AX/GEN/TRNK 2.5CM/< [facility] Basic metabolic 2008 panel with ionized calcium - Serum or Plasma [facility] NM Heart Views W str ess and W radionuclide IV [facility] Patient Education [facility] Work Phone: Patient referral [facility] Work Phone: Referral for further care [facility] Thyroid stimulating hormone measurement [facility] US Heart [facility] Immunizations Immunization Date Immunization Notes Care Provider Fa cility 04-14-2024 influenza, seasonal, injectable, preservative free Dr. Dago Smith MD Work Phone: [facility] 04-14-2023 influenza, injectabl e, quadrivalent, preservative free Dr. Dago Smith Work Phone: [facility] 08-11-2022 tetanus toxoid, redu rosa diphtheria toxoid, and acellular pertussis vaccine, adsorbed Dr. Dago Smith Work Phone: [facility] 04-29-2022 influenza, injectabl e, quadrivalent, preservative free Dr. Dago Smith Work Phone: [facility] 04-29-2022 influenza, seasonal, injectable Dr. Dago Smith Work Phone: [facility] 12-12-2021 Covid (Pfizer) Dr. Dago Smith Work Phone: [facility] 05-27-2021 Covid (Moderna) Dr. Craolina Smith Work Phone: [facility] 04-18-2021 influenza, injectabl e, quadrivalent, preservative free Dr. Dago Smith Work Phone: [facility] 04-18-2021 influenza, seasonal, injectable Dr. Dago Smith Work Phone: [facility] 04-18-2021 influenza, seasonal, injectable, preservative free Dr. Dago Smith MD Work Phone: [facility] 08-13-2020 Covid (Moderna) Dr. Carolina Smith Work Phone: [facility] 07-16-2020 Covid (Moderna) Dr. Carolina Smith Work Phone: [facility] 04-29-2020 influenza, injectabl e, quadrivalent, preservative free Dr. Dago Smith Work Phone: [facility] 04-29-2020 influenza, seasonal, injectable Dr. aDgo Smith Work Phone: [facility] 04-29-2020 influenza, seasonal, injectable, preservative free Dr. Dago Smith MD Work Phone: [facility] 05-02-2019 influenza, injectabl e, quadrivalent, preservative free Dr. Dago Smith Work Phone: [facility] 05-02-2019 influenza, seasonal, injectable Dr. Dago Smith Work Phone: [facility] 04-08-2018 influenza, injectabl e, quadrivalent, preservative free Dr. Dago Smith Work Phone: [facility] 04-08-2018 influenza, seasonal, injectable Dr. Dago Smith Work Phone: [facility] 04-16-2017 influenza, injectabl e, quadrivalent, preservative free Dr. Dago Smith Work Phone: [facility] 04-16-2017 influenza, seasonal, injectable Dr. Dago Smith Work Phone: [facility] 04-27-2016 influenza, injectabl e, quadrivalent, preservative free Dr. Dago Smith Work Phone: [facility] 04-27-2016 influenza, seasonal, injectable Dr. Dago Smith Work Phone: [facility] 04-11-2015 influenza, injectabl e, quadrivalent, preservative free Dr. Dago Smith Work Phone: [facility] 04-11-2015 influenza, seasonal, injectable Dr. Dago Smith Work Phone: [facility] 04-11-2014 influenza, injectabl e, quadrivalent, preservative free Dr. Dago Smith Work Phone: [facility] 04-11-2014 influenza, seasonal, injectable Dr. Dago Smith Work Phone: [facility] Payers Date Payer Category Payer Medicare [id number] 2024 Self-pay [id number] 2024 Private Health Insurance [id number] 2005 Medicare MEDICARE PART A B [id number] Private Health Insurance [id number] Unknown [id number] Unknown [id number] [id number] Unknown [id number] 2.16.840.1.666164.3.579.2.462 Unknown [id number] 2.16.840.1.793187.3.579.2.462 Unknown [id number] 2.16.840.1.964406.3.579.2.462 Unknown [id number] 2.16.840.1.464078.3.579.2.462 Unknown [id number] 2.16.840.1.326155.3.579.2.462 Unknown [id number] 2.16.840.1.256543.3.579.2.462 Unknown [id number] 2.16.840.1.851781.3.579.2.462 Unknown [id number] 2.16.840.1.011646.3.579.2.462 Unknown [id number] 2.16.840.1.521502.3.579.2.462 Unknown [id number] 2.16.840.1.812683.3.579.2.462 Unknown [id number] 2.16.840.1.825578.3.579.2.462 Unknown [id number] 2.16.840.1.076428.3.579.2.462 Unknown [id number] [id number] Social History Date Type Detail Facility Start: 07-31-2022 End: 10-03-2023 Tobacco smoking status HIIS Unknown if ever smoked [facility] Start: 1940 Sex Assigned At Female [facility] Start: 10-19-2023 Tobacco smoking stat us HIIS Never smoked tobacco (finding) [facility] Sex Female [facility] Mental Status Date Assessment Result Facility 08-19-2022 Cognitive function Level Of Cons ciousness Awake;Alert;Appropriate;Follow s Commands [facility] Work Phone: Clinical Notes 08-11-2022 to 03-28-2025 Note Date & Type Note Facility 03-28-2025 Progress note [facility] 03-28-2025 Progress note Note Date/Time March 28, 2025 1:28pm [facility] [address] [place] [address]. [address] [place], [place] [address] OFFICE VISIT Date of Service: 03/28/25 MR#: [id number] Acct: [id number] Name: YOSEF JENNINGS Rep #: [id number] : 1940 Provider: Dr. Himanshu Locke MD Age/Sex: 84/F Location: [facility] Status: Signed HPI HPI History of Present Illness Details: This very pleasant lady with history of paroxysmal atrial fibrillation, DVT, hypertension, nonischemic cardiomyopathy, hypothyroidism and obesity is here forfollow-up visit. Denies any complaints. No palpitations. No orthopnea. No PND. She continues to have chronic lower extremity edema. 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 Accompanied by: Self Is patient in pain?: No Allergies latex Allergy (Mild, Verified 03/28/25 12:58) unknown Medications ?Medication ?Instructions ?Recorded ?Confirmed ?Type acetaminophen 650 mg 650 mg PO Q8H PRN fever or p ain 12/23/22 03/07/25 History tablet,extended release (Tylenol 8 Hour) vibegron 75 mg tablet 75 mg PO DAILY 07/14/2302/10 History apixaban 5 mg tablet (Eliquis) 5 mg PO BID #60 tabs 03/07/25 Rx furosemide 40 mg tablet 40 mg PO QDAY #90 tabs 04/2703/07/25 Rx potassium chloride 20 mEq 20 meq PO QDAY #90 tabs 04/1103/07/25 Rx tablet,extended release levothyroxine 75 mcg tablet 75 mcg PO DAILY #60 tabs 1 03/07/25 Rx metoprolol succinate 100 mg 100 mg PO QDAY #90 tabs 03/07/25 Rx tablet,extended release 24 hr Handicap Parking Placard #1 ea 12/26/24 03/07/25 Rx dapagliflozin propanediol 10 mg 10 mg PO QDAY #90 tabs 12/26/24 03/07/25 Rx tablet (Farxiga) losartan 25 mg tablet 25 mg PO QDAY #90 tabs 12/2803/07/25 Rx metronidazole 500 mg tablet 500 mg PO BID #14 tabs Rx Ejection fraction %: 35 Have you fallen in the past year?: No PFSH Medical History Urinary tract infection Nocturia Mixed incontinence Localized swelling of chest wall COVID-19 Hypothyroidism [...] active job ROS Const Const: Negative for fatigue or weakness Eyes Eyes: Negative for change in vision ENT ENT: Negative for dizziness or balance problems Cardio Chest Pain: No Palpitations: No Edema: Bilateral Resp Respiratory: Positive for SOB with activity; Negative for SOB at rest or SOB orthopnea\SOB lying down GI GI: Negative nausea or heartburn Musc Musc: Negative for balance problems Neuro Neuro: Negative for dizziness, lightheadedness, near syncope, syncope or weakness Endo Endo: Negative for fatigue [...] Edema: +1: Bilateral Supplemental Info Supplemental Information Diagnostics: Electrocardiogram Echocardiogram Stress Test Stress Test Nuclear Medicine Chest X-Ray Extremity Arterial Study Venous Doppler Study Past Visits: Cardiology Visit Today Assessment and Plan Assessment and Plan (1) Atrial fibrillation: Status: Chronic Plan: Apixaban for anticoagulation. Ventricular rate controlled with metoprolol. (2) Left ventricular systolic dysfunction (LVSD), NYHA class 2: Status: Chronic Plan: No ischemia noted on Lexiscan stress Myoview. Continue beta-blockers. Angiotensin receptor blockers. Dapagliflozin. (3) Hypertension: Status: Chronic Plan: Furosemide and metoprolol. Increase losartan to 50 mg daily. Check blood pressure in office in 7 to 10 days time. (4) DVT (deep venous thrombosis): Status: Chronic Plan: Continue on Eliquis. Follow as per internal medicine. (5) Bilateral edema of lower extremity: Status: Chronic Plan: History of left lower extremity DVT. Edema much improved after stopping diltiazem. Continue furosemide. Recommend compression stockings. (6) Morbid obesity with BMI of 40.0-44.9, adult: Status: Chronic Plan: Lose weight. Plan Details Follow Up: 3 Months Coding Level of Care Code Off vis,est,level 4 Diagnoses Atrial fibrillation I48.91 Left ventricular systolic dysfunction (LVSD), NYHA class 2 I51.89 Hypertension I10 DVT (deep venous thrombosis) I82.409 Bilateral edema of lower extremity R60.0 Morbid obesity with BMI of 40.0-44.9, adult E66.01; Z68.41 Coding Level of Care Code Off vis,est,level 4 Diagnoses Atrial fibrillation I48.91 Left ventricular systolic dysfunction (LVSD), NYHA class 2 I51.89 Hypertension I10 DVT (deep venous thrombosis) I82.409 Bilateral edema of lower extremity R60.0 Morbid obesity with BMI of 40.0-44.9, adult E66.01; Z68.41 Clinical Quality Measures Falls Risk Screening/Assistive Devices Have you fallen in the past year?: No Cardiac Ejection fraction %: 35 03/28/25 1328 <Electronically signed by Chele Locke MD> Date _ Chele Locke MD Cosigner Signature: Date (if applicable) CC: Dr. Dago Smith MD ~ [facility] Work Phone: 1(982) 290-478406-17-2025 Evaluation note* Diagnosis Onset Date Resolution Status Admit Date Atrial fibrillation chronic December 26, 2024 2:25pm Bilateral edema of lower extremity chronic December 26, 2024 2:25pm DVT (deep venous thrombosis) chronic December 26, 2024 2:25pm Hypertension chronic December 26, 025 2:25pm Left ventricular systolic dysfunction (LVSD), NYHA class 2 chronic December 26, 2024 2:25pm [facility] Work Phone: 1(833) 816-830006-17-2025 Evaluation note* Diagnosis Onset Date Resolution Status Admit Date Atrial fibrillation chronic December 26, 2024 2:25pm Bilateral edema of lower extremity chronic December 26, 2024 2:25pm DVT (deep venous thrombosis) chronic December 26, 2024 2:25pm Hypertension chronic December 26, 025 2:25pm Left ventricular systolic dysfunction (LVSD), NYHA class 2 chronic December 26, 2024 2:25pm Acute vaginitis acute March 26, 2025 2:54pm Mixed incontinence acute Septem elizabeth 2024 2:54pm Nocturia acute March 2:54pm Urinary tract infection acute S eptember 2024 2:54pm Vaginal atrophy acute March 26, 2025 2:54pm Atrial fibrillation chronic [id number] 12:54pm Bilateral edema of lower extremity chronic March 28, 2025 12:54pm DVT (deep venous thrombosis) chronic March 28, 2025 12:54pm Hypertension chronic March 282024 12:54pm Left ventricular systolic dysfunction (LVSD), NYHA class 2 chronic March 28, 2025 12:54pm Morbid obesity with BMI of 40.0-44.9, adult chronic March 28, 2025 12:54pm [facility] Work Phone: 1(426) 703-608306-17-2025 Progress [facility] [address] [place] [address] OFFICE VISIT Date of Service: 12/26/24 MR#: [id number] Acct: [id number] Name: DICKYOSEF SWEET Rep #: [id number] : 1940 Provider: Dr. Himanshu Locke MD Age/Sex: 84/F Location: [facility] Status: Signed HPI HPI History of [...] 75 mg tablet 75 mg PO DAILY 07/14/2303/05 History apixaban 5 mg tablet (Eliquis) 5 [...] you fallen in the past year?: No [facility] Arrhythmia Arthritis Atrial fibrillation Bilateral [...] all wall segments. There is end systolic thickeningand brightening. The gated Cardiolite study demonstrates myocardial [...] Cardiac Ejection fraction %: 35 12/26/24 1512 MD> Date _ Chele Locke MD Cosigner Signature: Date (if applicable) CC: Dr. Dago Smith MD ~ [facility]06-17-2025 Progress note Author Chele Locke [facility] Note Date/Time December 26, 2024 3:12 pm [facility] [address] [place] [address]. [address] [place] [address] OFFICE VISIT Date of Service: 12/26/24 MR#: [id number] Acct: [id number] Name: YOSEF JENNINGS Rep #: [id number] : 1940 Provider: Dr. Himanshu Locke MD Age/Sex: 84/F Location: [facility] Status: Signed HPI HPI History of [...] 75 mg tablet 75 mg PO DAILY 07/14/2303/05 History apixaban 5 mg tablet (Eliquis) 5 [...] Cosigner Signature: Date (if applicable) CC: Dr. Dago Smith MD ~ [facility] Work Phone: 1(182) 578-601304-15-2025 Evaluation note* Diagnosis Onset Date Resolution Status Admit Date Atrial fibrillation chronic October 24, 2024 2:31pm Bilateral edema of lower extremity chronic October 24, 2024 2:31pm DVT (deep venous thrombosis) chronic October 24, 2024 2:31pm Hypertension chronic October 24, 2024 2:31pm [facility] Work Phone: 1(634) 753-556704-15-2025 Evaluation note* Diagnosis Onset Date Resolution Status [...] December 26, 2024 2:25pm Hypertension chronic December 26, 2 025 2:25pm Left ventricular systolic dysfunction (LVSD), NYHA class 2 chronic December 26, 2024 2:25pm [facility] Work Phone: 1(433) 420-108304-20-2023 Progress note Author Vinay Weiss [facility] October 29, 2022 12:36pm Note Date/Time October 29, 2022 8:1 5am [facility] [address] [place] [address] Progress Note - Wound Care 10/29/22 0815 MR#: [id number] Acct: [id number] Name: YOSEF JENNINGS Rep #:[id number] : 1940 82 From: Vinay zimmerman DPM PCP: Dr. Dago Smith MD Status:R EG RCR Location: History [...] did fall recently and went to the [facility] ED for stitches in the right hand [...] Start: 10/22/22 08:23 Freq: Status: Active Protocol: JORGE.EDWIN Activity Type Activity Date Activity User E-sign Co-sign Detail Recorded Client Recorded Date Recorded By Document 10/22/22 08:23 [facility] [id number] 10/22/22 08:37 [facility] 10/22/22 08:23 - Today's Visit Information Type of service Follow-up Visit (Physician/SAMPLE TAILOR ) Arrival Mode Ambulatory Transfer Assistance None [...] Recorded Date Recorded By Document 10/22/22 08:23 [facility] [id number] 10/22/22 08:37 [facility] 10/22/22 08:23 Wound Center Nurse 1 #1 [...] Calf (cm) 38.9 Left Ankle (cm) 26 - Nurse 2 - General Ulcer CM Notes Start: 10/22/22 08:23 Freq: Status: Active Protocol: Activity Type Activity Date Activity User E-sign Co-sign Detail Recorded Client Recorded Date Recorded By Document 10/22/22 09:15 PL [id number] 10/23/22 07:12 PL 10/22/22 09:15 Wound Center [...] Disc -Expiration Date 08/12/27 -Product Lot Number [id number] -Percent Used 100 -Bleeding Controlled with [...] Date Recorded By Document 10/22/22 09:31 [facility] [id number] 10/22/22 09:32 [facility] 10/22/22 09:31 Wound Care [...] No signs of infection Pain: May take gzpa-poq-aeyqcqi Tylenol for discomfort Host factors: Chronic venous [...] Cosigner Signature (if applicable): CC: ~ Signed [facility] Work Phone: 1(617) 256-188804-13-2023 Progress note Author Vinay Weiss [facility] October 22, 2022 12:46pm Note Date/Time October 22, 2022 8:4 3am [facility] [address] [place] [address] Progress Note - Wound Care 10/22/22 0836 MR#: [id number] Acct: [id number] Name: YOSEF JENNINGS Rep #:[id number] : 1940 82 From: Vinay zimmerman DPM PCP: Dr. Dago Smith MD Status:R EG RCR Location: History [...] did fall recently and went to the [facility] ED for stitches in the right hand [...] No signs of infection Pain: May take lwcg-uhn-lfajgdy Tylenol for discomfort Host factors: Chronic venous stasis with palpable varicosities to the lower extremity and foot, edema. ? I answered all the patient's questions.? To return to the wound healing center in 1 week or call sooner if the patient has any questions or concerns. 10/22/22 1246 <Electronically signed by Vinay Weiss DPM> Cosigner Signature (if applicable): CC: ~ Signed [facility] Work Phone: 1(256) 136-703903-30-2023 Progress note Author Vinay Weiss [facility] October 08, 2022 8:58am Note Date/Time October 08, 2022 8:2 2am [facility] [address] [place] [address] Progress Note - Wound Care 10/08/22 0822 MR#: [id number] Acct: [id number] Name: YOSEF JENNINGS Rep #:[id number] : 1940 82 From: Vinay zimmerman DPM PCP: Dr. Dago Smith MD Status:R EG RCR Location: History [...] did fall recently and went to the [facility] ED for stitches in the right hand [...] Start: 09/10/22 08:54 Freq: Status: Active Protocol: JORGE.LOWEXT Activity Type Activity Date Activity User E-sign Co-sign Detail Recorded Client Recorded Date Recorded By Document 09/10/22 08:55 ML [id number] 09/10/22 09:01 ML Document 09/17/22 08:29 AK [id number] 09/17/22 08:35 AK Document 09/24/22 08:23 AK [id number] 09/24/22 08:25 AK Document 10/01/22 08:20 JF Desktop 10/01/22 08:22 JF 09/10/22 09/17/22 09/24/22 08:55 08:29 08:23 - Today's Visit Information Type of service Follow-up Visit Follow-up Visit Follow-up Visit (Physician/SAMPLE TAILOR (Physician/SAMPLE TAILOR (Physician/SAMPLE TAILOR ) ) ) Arrival Mode Ambulatory Ambulatory [...] Pain Free? Yes Yes Yes 10/01/22 08:20 - Today's Visit Information Type of service Follow-up Visit (Physician/SAMPLE TAILOR ) Arrival Mode Ambulatory Transfer Assistance Patient [...] Date Recorded By Document 09/10/22 08:55 ML [id number] 09/10/22 09:01 ML Document 09/17/22 08:29 AK [id number] 09/17/22 08:35 AK Document 09/24/22 08:23 AK [id number] 09/24/22 08:25 AK Document 10/01/22 08:20 JF Desktop 10/01/22 08:22 09/10/22 09/17/22 09/24/22 08:55 08:29 08:23 Wound [...] Present (0 Large (67-100%) %) -Granulation Quality Loami,Red Loami -Slough/Fibrin No No Yes -Necrosis Amt None [...] Date Recorded By Document 09/10/22 11:26 PL [id number] 09/10/22 11:29 PL Document 09/17/22 11:34 PL [id number] 09/17/22 11:36 PL Document 09/24/22 11:36 PL [id number] 09/24/22 11:37 PL Document 10/01/22 13:21 PL [id number] 10/01/22 13:23 PL 09/10/22 09/17/22 09/24/22 11:26 [...] Date 06/11/27 06/11/27 07/12/27 -Product Lot Number [id number] 007 004 -Percent Used 100 100 [...] Controlled with -Treatment Response -Debridement - Subq, 20sq cm #1 Left medial ankle -Time [...] Disc -Expiration Date 07/12/27 -Product Lot Number [id number] -Percent Used 100 -Bleeding Controlled with [...] Date Recorded By Document 09/10/22 09:17 ML [id number] 09/10/22 09:20 ML Document 09/17/22 09:27 RB [id number] 09/17/22 09:29 RB Document 10/01/22 08:39 JF [id number] 10/01/22 08:40 JF 09/10/22 09/17/22 10/01/22 09:17 [...] No signs of infection Pain: May take yepn-bgk-skxntgp Tylenol for discomfort Host factors: Chronic venous stasis with palpable varicosities to the lower extremity and foot, edema. ? I answered all the patient's questions.? To return to the wound healing center in 1 week or call sooner if the patient has any questions or concerns. 10/08/22857 <Electronically signed by Vinay Weiss DPM> Cosigner Signature (if applicable): CC: ~ Signed [facility] Work Phone: 1(602) 516-864403-23-2023 Progress note Author Vinay Weiss [facility] October 01, 2022 9:02am Note Date/Time October 01, 2022 8:2 0am [facility] [address] [place] [address] Progress Note - Wound Care 10/01/22818 MR#: [id number] Acct: [id number] Name: YOSEF JENNINGS Rep #:[id number] : 1940 82 From: Vinay zimmerman DPM PCP: Dr. Dago Smith MD Status:R EG RCR Location: History [...] did fall recently and went to the [facility] ED for stitches in the right hand [...] Start: 09/10/22 08:54 Freq: Status: Active Protocol: LOWEXThelma Activity Type Activity Date Activity User E-sign Co-sign Detail Recorded Client Recorded Date Recorded By Document 09/10/22 08:55 ML [id number] 09/10/22 09:01 ML Document 09/17/22 08:29 AK [id number] 09/17/22 08:35 AK Document 09/24/22 08:23 AK [id number] 09/24/22 08:25 AK 09/10/22 09/17/22 09/24/22 08:55 08:29 08:23 - Today's Visit Information Type of service Follow-up Visit Follow-up Visit Follow-up Visit (Physician/SAMPLE TAILOR (Physician/SAMPLE TAILOR (Physician/SAMPLE TAILOR ) ) ) Arrival Mode Ambulatory Ambulatory [...] Date Recorded By Document 09/10/22 08:55 ML [id number] 09/10/22 09:01 ML Document 09/17/22 08:29 AK [id number] 09/17/22 08:35 AK Document 09/24/22 08:23 AK [id number] 09/24/22 08:25 AK 09/10/22 09/17/22 09/24/22 08:55 [...] Present (0 Large (67-100%) %) -Granulation Quality Loami,Red Loami -Slough/Fibrin No No Yes -Necrosis Amt None [...] Date Recorded By Document 09/10/22 11:26 PL [id number] 09/10/22 11:29 PL Document 09/17/22 11:34 PL [id number] 09/17/22 11:36 PL Document 09/24/22 11:36 PL [id number] 09/24/22 11:37 PL 09/10/22 09/17/22 09/24/22 11:26 [...] Date 06/11/27 06/11/27 07/12/27 -Product Lot Number [id number] 004 -Percent Used 100 100 [...] Free? Yes Yes Yes WC - Nurse 3 - General Ulcer D/C NN Start: 09/10/22 08:54 Freq: Status: Active Protocol: Activity Type Activity Date Activity User E-sign Co-sign Detail Recorded Client Recorded Date Recorded By Document 09/10/22 09:17 ML [id number] 09/10/22 09:20 ML Document 09/17/22 09:27 RB [id number] 09/17/22 09:29 RB 09/10/22 09/17/22 09:17 09:27 [...] No signs of infection Pain: May take almv-hiw-foxxgwl Tylenol for discomfort Host factors: Chronic venous stasis with palpable varicosities to the lower extremity and foot, edema. ? I answered all the patient's questions.? To return to the wound healing center in 1 week or call sooner if the patient has any questions or concerns. 10/01/22 0902 <Electronically signed by Vinay Weiss DPM> Cosigner Signature (if applicable): CC: ~ Signed [facility] Work Phone: 1(928) 147-463803-16-2023 Progress note Author Vinay Weiss [facility] September 24, 2022 8:51am Note Date/Time September 24, 2022 8:[address] [facility] [address] [place] [address] Progress Note - Wound Care 09/24/2214 MR#: [id number] Acct: [id number] Name: YOSEF JENNINGS Rep #:[id number] : 1940 82 From: Vinay zimmerman DPM PCP: Dr. Dago Smith MD Status:R EG RCR Location: History [...] did fall recently and went to the [facility] ED for stitches in the right hand [...] Date Recorded By Document 09/10/22 08:55 ML [id number] 09/10/22 09:01 ML Document 09/17/22 08:29 AK [id number] 09/17/22 08:35 AK 09/10/22 09/17/22 08:55 08:29 WC - Today's Visit Information Type of service Follow-up Visit Follow-up Visit (Physician/SAMPLE TAILOR (Physician/SAMPLE TAILOR ) ) Arrival Mode Ambulatory Ambulatory Transfer [...] Patient Pain Free? Yes Yes - Nurse 1 - General Ulcer Measurement Start: 09/10/22 08:54 Freq: Status: Active Protocol: Activity Type Activity Date Activity User E-sign Co-sign Detail Recorded Client Recorded Date Recorded By Document 09/10/22 08:55 ML [id number] 09/10/22 09:01 ML Document 09/17/22 08:29 KS [id number] 09/17/22 08:35 AK 09/10/22 09/17/22 08:55 08:29 [...] (1-33%) None Present (0 %) -Granulation Quality Loami,Red -Slough/Fibrin No No -Necrosis Amt None Present [...] Date Recorded By Document 09/10/22 11:26 PL [id number] 09/10/22 11:29 PL Document 09/17/22 11:34 PL [id number] 09/17/22 11:36 PL 09/10/22 09/17/22 11:26 11:34 [...] -Expiration Date 06/11/27 06/11/27 -Product Lot Number [id number] -Percent Used 100 100 -Bleeding [...] Date Recorded By Document 09/10/22 09:17 ML [id number] 09/10/22 09:20 ML Document 09/17/22 09:27 RB [id number] 09/17/22 09:29 RB 09/10/22 09/17/22 09:17 09:27 [...] No signs of infection Pain: May take mlrl-gmg-mllnpgw Tylenol for discomfort Host factors: Chronic venous stasis with palpable varicosities to the lower extremity and foot, edema. ? I answered all the patient's questions.? To return to the wound healing center in 1 week or call sooner if the patient has any questions or concerns. 09/24/22 1778 <Electronically signed by Vinay Weiss DPM> Cosigner Signature (if applicable): CC: ~ Signed [facility] Work Phone: 1(139) 497-566203-09-2023 Progress note Author Vinay Weiss [facility] September 17, 2022 10:26am Note Date/Time September 17, 2022 9:26 am [facility] [address] [place] [address] Progress Note - Wound Care 09/17/22921 MR#: [id number] Acct: [id number] Name: YOSEF JENNINGS Rep #:[id number] : 1940 82 From: Vinay zimmerman DPM PCP: Dr. Dago Smith MD Status:R EG RCR Location: History [...] did fall recently and went to the [facility] ED for stitches in the right hand [...] Date Recorded By Document 09/10/22 08:55 ML [id number] 09/10/22 09:01 ML Document 09/17/22 08:29 AK [id number] 09/17/22 08:35 AK 09/10/22 09/17/22 08:55 08:29 - Today's Visit Information Type of service Follow-up Visit Follow-up Visit (Physician/SAMPLE TAILOR (Physician/SAMPLE TAILOR ) ) Arrival Mode Ambulatory Ambulatory Transfer [...] Date Recorded By Document 09/10/22 08:55 ML [id number] 09/10/22 09:01 ML Document 09/17/22 08:29 AK [id number] 09/17/22 08:35 AK 09/10/22 09/17/22 08:55 08:29 [...] (1-33%) None Present (0 %) -Granulation Quality Loami,Red -Slough/Fibrin No No -Necrosis Amt None Present [...] Date Recorded By Document 09/10/22 11:26 PL [id number] 09/10/22 11:29 PL 09/10/22 11:26 Wound Center [...] Disc -Expiration Date 06/11/27 -Product Lot Number [id number] -Percent Used 100 -Bleeding Controlled with [...] Date Recorded By Document 09/10/22 09:17 ML [id number] 09/10/22 09:20 ML 09/10/22 09:17 Wound Care [...] No signs of infection Pain: May take khps-hzx-otsvyjp Tylenol for discomfort Host factors: Chronic venous stasis with palpable varicosities to the lower extremity and foot, edema. ? I answered all the patient's questions.? To return to the wound healing center in 1 week or call sooner if the patient has any questions or concerns. 09/17/22 1026 <Electronically signed by Vinay Weiss DPM> Cosigner Signature (if applicable): CC: ~ Signed [facility] Work Phone: 1(184) 641-966003-02-2023 Progress note Author Vinay Weiss [facility] September 10, 2022 9:20am Note Date/Time September 10, 2022 8:59 am [facility] [address] [place] [address] Progress Note - Wound Care 09/10/22 0856 MR#: [id number] Acct: [id number] Name: YOSEF JENNINGS Rep #:[id number] : 1940 82 From: Vinay zimmerman DPM PCP: Dr. Dago Smith MD Status:R EG RCR Location: History [...] did fall recently and went to the [facility] ED for stitches in the right hand [...] No signs of infection Pain: May take gqyk-aik-ajmpbfv Tylenol for discomfort Host factors: Chronic venous stasis with palpable varicosities to the lower extremity and foot, edema. ? I answered all the patient's questions.? To return to the wound healing center in 1 week or call sooner if the patient has any questions or concerns. 09/10/22919 <Electronically signed by Vinay Weiss DPM> Cosigner Signature (if applicable): CC: ~ Signed [facility] Work Phone: 1(877) 785-369702-23-2023 Progress note Author Vinay Weiss [facility] September 03, 2022 9:59pm Note Date/Time September 03, 2022 8:29am [facility] [address] [place] [address] Progress Note - Wound Care 09/03/22 0829 MR#: [id number] Acct: [id number] Name: YOSEF JENNINGS Rep #:[id number] : 1940 82 From: Vinay zimmerman DPM PCP: Dr. Dago Smith MD Status:R EG RCR Location: History [...] did fall recently and went to the [facility] ED for stitches in the right hand [...] Start: 08/13/22 08:18 Freq: Status: Active Protocol: JORGE.EDWIN Activity Type Activity Date Activity User E-sign Co-sign Detail Recorded Client Recorded Date Recorded By Document 08/13/22 08:20 KS [id number] 08/13/22 08:26 AK Document 08/20/22 08:26 [id number] 08/20/22 08:32 Document 08/27/22 08:51 KS [id number] 08/27/22 08:54 KS 08/13/22 08/20/22 08/27/22 08:20 08:26 08:51 - Today's Visit Information Type of service Initial Visit Follow-up Visit Follow-up Visit (Physician/SAMPLE TAILOR (Physician/SAMPLE TAILOR ) ) Arrival Mode Ambulatory Ambulatory Ambulatory [...] Date Recorded By Document 08/13/22 08:20 AK [id number] 08/13/22 08:26 AK Document 08/20/22 08:26 [id number] 08/20/22 08:32 JF Document 08/27/22 08:51 AK [id number] 08/27/22 08:54 AK 08/13/22 08/20/22 08/27/22 08:20 [...] (34-66%) Medium (34-66%) Medium (34-66%) -Granulation Quality Loami Red Loami -Slough/Fibrin Yes Yes Yes -Necrosis Amt Medium [...] (34-66%) Medium (34-66%) Medium (34-66%) -Granulation Quality Loami,Red Red Loami -Slough/Fibrin Yes Yes Yes -Necrosis Amt Medium [...] Recorded Date Recorded By Document 08/13/22 11:38 [id number] 08/13/22 11:41 PL Document 08/20/22 11:53 [id number] 08/20/22 11:54 PL Document 08/27/22 11:50 [id number] 08/27/22 11:51 PL 08/13/22 08/20/22 08/27/22 11:38 [...] Free? Yes Yes Yes WC - Nurse 3 - General Ulcer D/C NN Start: 08/13/22 08:18 Freq: Status: Active Protocol: Activity Type Activity Date Activity User E-sign Co-sign Detail Recorded Client Recorded Date Recorded By Document 08/20/22 09:10 CICI [id number] 08/20/22 09:11 Document 08/27/22 09:18 CICI [id number] 08/27/22 09:19 08/20/22 08/27/22 09:10 09:18 Wound [...] No signs of infection Pain: May take mamv-fnr-utqvuuw Tylenol for discomfort Host factors: Chronic venous stasis with palpable varicosities to the lower extremity and foot, edema. I answered all the patient's questions. To return to the wound healing center in 1 week or call sooner if the patient has any questions or concerns. Note: [employer] speech recognition magazine worker software was used to create portions of this document. Sound-alike and misspelled words, as well as other magazine worker errors may be contained in the documentation. 09/03/222158 <Electronically signed by Vinay Weiss DPM> Cosigner Signature (if applicable): CC: ~ Signed [facility] Work Phone: 1(480) 678-511202-16-2023 Progress note Author Vinay Weiss [facility] August 27, 2022 9:19am Note Date/Time August 27, 2022 8:28am [facility] [address] [place] [address] Progress Note - Wound Care 08/27/22 0828 MR#: [id number] Acct: [id number] Name: YOSEF JENNINGS Rep #:[id number] : 1940 82 From: Vinay zimmerman DPM PCP: Dr. Dago Smith MD Status:R EG RCR Location: History [...] did fall recently and went to the [facility] ED for stitches in the right hand [...] Date Recorded By Document 08/13/22 08:20 ADOLFO [id number] 08/13/22 08:26 AK Document 08/20/22 08:26 CICI [id number] 08/20/22 08:32 CICI 08/13/22 08/20/22 08:20 08:26 - Today's Visit Information Type of service Initial Visit Follow-up Visit (Physician/SAMPLE TAILOR ) Arrival Mode Ambulatory Ambulatory Patient Identification [...] Date Recorded By Document 08/13/22 08:20 AK [id number] 08/13/22 08:26 AK Document 08/20/22 08:26 JF [id number] 08/20/22 08:32 JF 08/13/22 08/20/22 08:20 08:26 [...] Amt Medium (34-66%) Medium (34-66%) -Granulation Quality Loami Red -Slough/Fibrin Yes Yes -Necrosis Amt Medium [...] Amt Medium (34-66%) Medium (34-66%) -Granulation Quality Loami,Red Red -Slough/Fibrin Yes Yes -Necrosis Amt Medium [...] Date Recorded By Document 08/13/22 11:38 PL [id number] 08/13/22 11:41 PL Document 08/20/22 11:53 PL [id number] 08/20/22 11:54 PL 08/13/22 08/20/22 11:38 11:53 [...] Date Recorded By Document 08/20/22 09:10 CICI [id number] 08/20/22 09:11 CICI 08/20/22 09:10 Wound Care [...] No signs of infection Pain: May take swwd-nmz-bwzxtui Tylenol for discomfort Host factors: Chronic venous stasis with palpable varicosities to the lower extremity and foot, edema. I answered all the patient's questions. To return to the wound healing center in 1 week or call sooner if the patient has any questions or concerns. Note: [employer] speech recognition magazine worker software was used to create portions of this document. Sound-alike and misspelled words, as well as other magazine worker errors may be contained in the documentation. 08/27/22918 <Electronically signed by Vinay Weiss DPM> Cosigner Signature (if applicable): CC: ~ Signed [facility] Work Phone: [phone]) 223-402402-09-2023 Progress note Author Vinay Weiss [facility] August 20, 2022 9:46am Note Date/Time August 20, 2022 8 :56am [facility] [address] [place] [address] Progress Note - Wound Care 08/20/22 0856 MR#: [id number] Acct: [id number] Name: YOSEF JENNINGS Rep #:[id number] : 1940 81 From: Vinay zimmerman DPM PCP: Dr. Dago Smith MD Status:R RCR Location: History of [...] did fall recently and went to the [facility] ED for stitches in the right hand [...] bilaterally. Ordering Physician: Vinay Weiss Referring Physician: Dago Smith Performed By: Al Castro RVT Venous [...] vein is patent and incompetent. 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 Ordering Physician: Vinay Weiss Referring Physician: Dago Smith Performed By: Al Castro, ARUNA Physical Exam Const alert, oriented x3 and [...] Date Recorded By Document 08/13/22 08:20 AK [id number] 08/13/22 08:26 AK Document 08/20/22 08:26 JF [id number] 08/20/22 08:32 JF 08/13/22 08/20/22 08:20 08:26 WC - Today's Visit Information Type of service Initial Visit Follow-up Visit (Physician/SAMPLE TAILOR ) Arrival Mode Ambulatory Ambulatory Patient Identification [...] Numeric Is Patient Pain Free? No Yes JORGE Butt Nurse 1 - General Ulcer Measurement Start: 08/13/22 08:18 Freq: Status: Active Protocol: Activity Type Activity Date Activity User E-sign Co-sign Detail Recorded Client Recorded Date Recorded By Document 08/13/22 08:20 AK [id number] 08/13/22 08:26 AK Document 08/20/22 08:26 JF [id number] 08/20/22 08:32 JF 08/13/22 08/20/22 08:20 08:26 [...] Amt Medium (34-66%) Medium (34-66%) -Granulation Quality Loami Red -Slough/Fibrin Yes Yes -Necrosis Amt Medium [...] Amt Medium (34-66%) Medium (34-66%) -Granulation Quality Loami,Red Red -Slough/Fibrin Yes Yes -Necrosis Amt Medium [...] Date Recorded By Document 08/13/22 11:38 PL [id number] 08/13/22 11:41 PL 08/13/22 11:38 Wound Center [...] No signs of infection Pain: May take pjsb-vul-mqcktri Tylenol for discomfort Host factors: Chronic venous stasis with palpable varicosities to the lower extremity and foot, edema. I answered all the patient's questions. To return to the wound healing center in 1 week or call sooner if the patient has any questions or concerns. Note: Realeyes speech recognition magazine worker software was used to create portions of this document. Sound-alike and misspelled words, as well as other magazine worker errors may be contained in the documentation. 08/20/22 0946 <Electronically signed by Vinay Weiss DPM> Cosigner Signature (if applicable): CC: ~ Signed [facility] Work Phone: 1(234) 543-241002-08-[address] [facility] August 19, 2022 10:49pm Note Date/Time August 19, 2022 1 0:42pm [facility] Medical Records Department [address] [place] [address] Emergency Department Summary 08/19/22 MR#: [id number] Acct: [id number] Name: YOSEF JENNINGS Rep #:[id number] : 1940 81 From: Inderjit Hoffmann DO PCP: Dr. Dago Smith MD Status:D EP ER Location: ED [...] DVT study. No history of DVT. PFSH PFSH Medical History Arthritis Cellulitis of [...] Work / School Excuse Primary Care Provider: Dago Smith Referrals: Dago Smith MD [Primary Care Provider] - Vinay Weiss DPM [Med Staff - Active Staff] - 3-5 Days Disposition Disposition: Home, Self Care Discharge Date/Time: 08/19/22 20:31 What to do if you have Problems For any increased pain, shortness of breath, bleeding, nausea or vomiting, chestpain, or any unexpected problems, contact your Primary Care Provider. Call [facility] ([phone]) or report to the closest Emergency Room. Call 911 if necessary. 08/19/222248 <Electronically signed by Inderjit Hoffmann DO> Cosigner Signature (if applicable): CC: Dr. Dago Smith MD ~ Signed [facility] Work Phone: 1(132) 752-284602-02-2023 History and physical note Author Vinay Weiss [facility] August 13, 2022 9:36am Note Date/Time August 13, 2022 9 :22am [facility] [address] [place] [id number] H&P Exam - Wound Care 08/13/22 0905 MR#: [id number] Acct: [id number] Name: YOSEF JENNINGS Rep #:[id number] : 1940 81 From: Vinay zimmerman DPM PCP: Dr. Dago Smith MD Status:R EG RCR Location: History [...] did fall recently and went to the [facility] ED for stitches in the right hand [...] are swollen and the ulcerative sites ache. [facility] Medical History Arthritis Cellulitis of left ankle [...] Date Recorded By Document 08/13/22 08:20 ADOLFO [id number] 08/13/22 08:26 AK 08/13/22 08:20 - Today's Visit Information Type of service [...] Date Recorded By Document 08/13/22 08:20 ADOLFO [id number] 08/13/22 08:26 ADOLFO 08/13/22 08:20 Wound Center Nurse 1 #2 [...] Attached -Granulation Amt Medium (34-66%) -Granulation Quality Loami -Slough/Fibrin Yes -Necrosis Amt Medium (34-66%) -Necrotic [...] Attached -Granulation Amt Medium (34-66%) -Granulation Quality Loami,Red -Slough/Fibrin Yes -Necrosis Amt Medium (34-66%) -Necrotic [...] No signs of infection Pain: May take ijlp-php-yuevbps Tylenol for discomfort Host factors: Chronic venous stasis with palpable varicosities to the lower extremity and foot, edema. I answered all the patient's questions. To return to the wound healing center in 1 week or call sooner if the patient has any questions or concerns. Note: Realeyes speech recognition magazine worker software was used to create portions of this document. Sound-alike and misspelled words, as well as other magazine worker errors may be contained in the documentation. The problems addressed require a low medical decision making level which includes two or more minor problems, a stable chronic illness, or an acute uncomplicated illness or injury. The medical decision making level is low. There is noted low risk of morbidity after considering this treatment plan and diagnostic data. 08/13/22 0936 <Electronically signed by Vinay Abhishek DPM> Cosigner Signature (if applicable): CC: ~ Signed [facility] Work Phone: 1(931) 869-715001-31-[address] [facility] August 11, 2022 11:03pm Note Date/Time August 11, 2022 1 1:00pm [facility] Medical Records Department [address] [place] [address] Emergency Department Summary 08/11/22 MR#: [id number] Acct: [id number] Name: YOSEF JENNINGS Rep #:[id number] : 1940 81 From: Shilo Walden MD PCP: Dr. Dago Smith MD Status:R EG ER Location: ED [...] Funtion Narrative Narrative: Patient is an 81-year-old rtmyl-vwdn-blwslzet woman who was entering the building for [...] similar symptoms: No Recent Illness/Hospitalization: No PFSH PFS Medical History Arthritis Cellulitis of [...] 21:01 EST Reading Location ID and State: [facility] [place] [facility] [place] , Service support , Procedures Other Procedures [...] BID Qty: 20 0RF Primary Care Provider: Dago Smith Referrals: Dago Smith MD [Primary Care Provider] - 2 [...] problems, contact your Primary Care Provider. Call [employer] [facility] ([phone]) or report to the closest Emergency Room. Call 911 if necessary. 08/11/222302 <Electronically signed by Shilo Walden MD> Cosigner Signature (if applicable): CC: Dr. Dago Smith MD ~ Signed [facility] Work Phone: 1(643) 768-731501-31-2023 Hospital Discharge instructions Additional Instructions 1. Keep finger clean and dry. 2. Take antibiotic until gone 3. Sutures to be removed in 10 to [address] Work Phone: Discharge summary Author Michael Sánchez [facility] July 31, 2022 3:25am Note Date/Time July 31, 2022 3 :14am [facility] Medical Records Department [address] [place] [address] Emergency Department Summary 07/31/22 MR#: [id number] Acct: [id number] Name: YOSEF JENNINGS Rep #:[id number] : 1940 81 From: Michael Sánchez DO PCP: Dr. Dago Smith MD Status:R EG ER Location: ED [...] concern for recurrent infection presents for evaluation [facility] Medical History (Updated 07/31/22 @ 03:[address] Michael Sánchez, DO) Arthritis Cellulitis of left ankle Hearing [...] % (Auto) 58.3 Lymph % (Auto) 28.9 [place] % (Auto) 10.2 H Eos % (Auto) [...] Signed: Dante Solorzano MD at 3:02 EST Reading Location ID and State: [facility] / MD Tel , Service support , X-ray of the left ankle as [...] Care Referral (Routine) Timeframe: 1 Week Facility: [facility] - Location: Wound Healing Center Ordered By: Dr. Michael Sánchez Primary Care Provider: Dago Smith Referrals: Dago Smith MD [Primary Care Provider] - Vinay Weiss DPM [Med Staff - Active Staff] - Activity Restrictions/Additional Instructions: Please contact Dr. Weiss/podiatry to discuss further treatment options for your venous stasis ulcer. You have also been given a referral for [facility]. Please continue to wrap the wound as shown in the ER and return to the ERshould you have any further concerns Disposition Disposition: Home, Self Care What to do if you have Problems For any increased pain, shortness of breath, bleeding, nausea or vomiting, chestpain, or any unexpected problems, contact your Primary Care Provider. Call [employer] [facility] ([phone]) or report to the closest Emergency Room. Call 911 if necessary. 07/31/22 0325 <Electronically signed by Michael Sánchez DO> Cosigner Signature (if applicable): CC: Dr. Dago Smith MD ~ Signed [facility] Work Phone: Discharge summary Author Bharath Mercer [facility] October 03, 2023 11:09am Note Date/Time October 03, 2023 9:[address] [facility] Medical Records Department [address] [place] [address] Emergency Department Summary 10/03/23 MR#: [id number] Acct: [id number] Name: YOSEF JENNINGS Rep #:[id number] : 1940 83 From: Bharath Mercer MD PCP: Dr. Dago Smith MD Status:R EG ER Location: ED [...] bleeding recently fromanywhere. 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 [facility] Medical History Arrhythmia Arthritis Atrial fibrillation Bilateral [...] Signed: Eliza Delgado MD at 10:35 EDT , Discharge Plan Triage Chief Complaint: Flank [...] mcg on 2 days. Primary Care Provider: Dago Smith Referrals: Dago Smith MD [Primary Care Provider] - 1 Week if not improving Disposition Disposition: Home, Self Care What to do if you have Problems For any increased pain, shortness of breath, bleeding, nausea or vomiting, chestpain, or any unexpected problems, contact your Primary Care Provider. Call [facility] ([phone]) or report to the closest Emergency Room. Call 911 if necessary. 10/03/23 1109 <Electronically signed by Bharath Mercer MD> Cosigner Signature (if applicable): CC: Dr. Dago Smith MD ~ Signed [facility] Work Phone: Evaluation note* Diagnosis Onset Date Resolution Status Cellulitis of left ankle acu te 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 Work Phone: Evaluation note* Diagnosis Onset [...] exposed chronic Venous insufficiency (chronic) (peripheral) chronic [facility] Work Phone: Evaluation note* Diagnosis Onset [...] exposed chronic Venous insufficiency (chronic) (peripheral) chronic [facility] Work Phone: Evaluation note* Diagnosis Onset [...] DVT (deep venous thrombosis) chronic Hypertension chronic [facility] Work Phone: Evaluation note* Diagnosis Onset Date Resolution Status COVID-19 acute Atrial fibrillation chronic Hypertension chronic Hypothyroidism chronic [facility] Work Phone: Evaluation note* Diagnosis Onset Date Resolution Status COVID-19 acute Atrial fibrillation chronic Hypertension chronic Hypothyroidism chronic Atrial fibrillation chronic Bilateral edema of lower extremity chronic DVT (deep venous thrombosis) chronic Hypertension chronic [facility] Work Phone: Hospital Discharge instructions Additional Instructions Please contact Dr. Weiss/podiatry to discuss further treatment options for your venous stasis ulcer. You have also been given a referral for [facility] wound [facility]. Please continue to wrap the wound as shown in the ER and return to the ER should [facility]: Reason for referral (narrative)No reason for referral information availableWWooster [facility] Work Phone: Chief Complaint and Reason [...] ANKLE WOUND/INF ECTION X-Rays wound FALL DVT [facility] FU - SUTURE REMOVAL Cardiac arrhythmia, [...] (chronic) (peripheral) Chief Complaint wound FALL DVT [facility] FU - SUTURE REMOVAL Cardiac arrhythmia, unspecified Cardiac arrhythmia, unspecified NON HEALING WOUND Reason for Visit Arrhythmia Encounter for removal of sutures Laceration of right middle finger with foreign body w/o damage to nail Bilateral edema of lower extremity Non-pressure chronic ulcer of left calf with fat layer exposed Venous insufficiency (chronic) (peripheral) Chief Complaint wound FALL DVT [facility] FU - SUTURE REMOVAL Cardiac arrhythmia, [...] (chronic) (peripheral) Chief Complaint wound FALL DVT [facility] FU - SUTURE REMOVAL Cardiac arrhythmia, [...] (chronic) (peripheral) Chief Complaint wound FALL DVT [facility] FU - SUTURE REMOVAL Cardiac arrhythmia, [...] Hypertension Chief Complaint HEAD CONGESTION/COUG H COVID TEST/[facility] EMPLOY follow up Reason for Visit COVID-19 Atrial fibrillation Hypertension Hypothyroidism Chief Complaint HEAD CONGESTION/COUG H COVID TEST/[facility] EMPLOY follow up 6 M FU E ORDERS Reason for Visit COVID-19 Atrial fibrillation Hypertension Hypothyroidism Atrial fibrillation Bilateral edema of lower extremity DVT (deep venous thrombosis) Hypertension Chief Complaint HEAD CONGESTION/COUG H COVID TEST/[facility] EMPLOY follow up 6 M FU E [...] pm E-ORDER February 07, 2025 4:11 pm Chief Complaint Admit Date Localized edema December 18, 2024 9:54a m 4 WK FU December 26, 2024 2:25 pm E-ORDER February 07, 2025 4:11 pm LVSD NYHA CLASS 2 February 26, 2025 7: 06am LVSD NYHA CLASS 2 February 26, 2025 6: 24pm Reason for Visit Admit Date Atrial fibrillation December 26, 2024 2:25 pm Bilateral edema of lower extremity December 26, 2024 2:25pm DVT (deep venous thrombosis) December 26, 2024 2:25pm Hypertension December 26, 2024 2:25 pm Left ventricular systolic dysfunction (L VSD), NYHA class 2 December 26, 2024 2:25pm Chief Complaint Admit Date Localized edema December 18, 2024 9:54a m 4 WK December 26, 2024 2:25 pm E-ORDER February 07, 2025 4:11 pm LVSD NYHA CLASS 2 February 26, 2025 7: 06am LVSD NYHA CLASS 2 February 26, 2025 6: 24pm 3 mo pessary cleaning March 26 2:54pm Chief Complaint Admit Date Localized edema December 18, 2024 9:54a m 4 WK FU December 26, 2024 2:25 pm E-ORDER February 07, 2025 4:11 pm LVSD NYHA CLASS 2 February 26, 2025 7: 06am LVSD NYHA CLASS 2 February 26, 2025 6: 24pm 3 mo pessary cleaning March 26 2:54pm 3 M FU March 28, 2025 12:54pm Reason for Visit Admit Date Atrial fibrillation December 26, 2024 2:25 pm Bilateral edema of lower extremity December 26, 2024 2:25pm DVT (deep venous thrombosis) December 26, 2024 2:25pm Hypertension December 26, 2024 2:25 pm Left ventricular systolic dy sfunction (LVSD), NYHA class 2 December 26, 2024 2:25pm Acute vaginitis March 26, 2025 2:54pm Mixed incontinence March 26, 2025 2:54pm Nocturia March 26, 2025 2:54pm Urinary tract infection March 26, 2025 2:54pm Vaginal atrophy March 26, 2025 2:54pm Atrial fibrillation March 28, 2025 12:54pm Bilateral edema of lower extremity Septe mber 2024 12:54pm DVT (deep venous thrombosis) March 122024 12:54pm Hypertension March 28, 2025 12:54pm Left ventricular systolic dy sfunction (LVSD), NYHA class 2 March 28, 2025 12:54pm Morbid obesity with BMI of 40.0-44.9, ad ult March 28, 2025 12:54pm Family History No Family History Records Found Relationship Condition Age at Onset Recorded Date/T reva Not Specified Cardiac disease Unknown brother Malignant neoplasm Unknown sister Malignant neoplasm Unknown Advance Directives No Advanced Directives Records Found Advance Directive Response Recorded Date/ Time Living Will No July 31 1:46am Power of Seed Corn Production Manager No July 31, 2022 1:46am Advance Directive Response Recorded Date/ Time Living Will No August 11 7:28pm Power of Seed Corn Production Manager No August 11, 2022 7:28pm Advance Directive Response Recorded Date/ Time Living Will No August 19 7:28pm Power of Seed Corn Production Manager No August 19, 2022 7:28pm Advance Directive Response Recorded Date/ Time Living Will No August 19 8:28pm Power of Seed Corn Production Manager No August 19, 2022 8:28pm Advance Directive Response Recorded Date/ Time Living Will No October 03, 2023 9:37am Power of Seed Corn Production Manager No October 02 9:37am Summary Purpose Additional Source Comments Care Teams (unrecognized sec tion and content) Team Status: Active Member Role Status Dates Dr. Mounika Magallanes DO Family Provider Active Dr. Dago Smith MD Primary Care Provider Active Team Status: Inactive Member Role Status Dates Dr. Dago Smith MD Primary Care Provider, Refer ring Provider Active Veto [place], [place] Attending Provider Active Team Status: Inactive Member Role Status Dates Dr. Dago Smith MD Primary Care Provider Active Dr. Yadiel Rogers MD Attending Provider Active [place], [place] Referring Provider Active Team Status: Inactive Member Role Status Dates Dr. Dago Smith MD Primary Care Provider Active Dr. Michael Sánchez DO Emergency Provider Active Team Status: Inactive Member Role Status Dates Dr. Dago Smith MD Primary Care Provider Active Dr. Michael Sánchez DO Attending Provider, Emergency Pr ovider Active Team Status: Inactive Member Role Status Dates Dr. Dago Smith MD Primary Care Provider Active Dr. Shilo Walden MD Emergency Provider Active Team Status: Active Member Role Status Dates Dr. Dago Smith MD Primary Care Provider Active Dr. Vinay Weiss DPM Attending Provider Active Team Status: Inactive Member Role Status Dates Dr. Dago Smith MD Primary Care Provider Active Dr. Inderjit Hoffmann DO Emergency Provider Active Team Status: Inactive Member Role Status Dates Dr. Dago Smith MD Primary Care P rovider, Attending Provider, Referring Provider Active Team Status: Active Member Role Status Dates Dr. Dago Smith MD Primary Care Provider, Refer ring Provider Active Dr. Stephan Ayala MD Attending Provider Active Team Status: Inactive Member Role Status Dates Dr. Dago Smith MD Primary Care Provider Active Dr. Shilo Walden MD Attending Provider, Emergency Provi daniel Active Team Status: Inactive Member Role Status Dates Dr. Dago Smith MD Primary Care Provider Active Dr. Inderjit Hoffmann DO Attending Provider, Emergency Provider Active Team Status: Inactive Member Role Status Dates Dr. Dago Smith MD Primary Care Provider, Atten ding Provider Active Team Status: Inactive Member Role Status Dates Dr. Dago Smith MD Primary Care Provider Active Dr. Vinay Weiss DPM Attending Provider Active Team Status: Inactive Member Role Status Dates Dr. Dago Smith MD Primary Care Provider, Refer ring Provider Active Dr. Chele Locke MD Attending Provider Active Team Status: Active Member Role Status Dates Dr. Dago Smith MD Primary Care Provider Active Dr. Chele Locke MD Attending Provider Active Team Status: Inactive Member Role Status Dates Dr. Dago Smith MD Primary Care Provider Active Dr. Chele Locke MD Attending Provider, Referring Pr ovider Active Team Status: Active Member Role Status Dates Dr. Dago Smith MD Primary Care Provider Active Didi Thibodeaux Attending Provider Active Team Status: Active Member Role Status Dates Dr. Dago Smith MD Primary Care Provider Active Dr. Chele Locke MD Attending Provider , Referring Provider, Other Provider Active Team Status: Inactive Member Role Status Dates Dr. Dago Smith MD Primary Care Provider, Refer ring Provider Active Vishal CARLS[place] Attending Provider Active Team Status: Inactive Member Role Status Dates Dr. Dago Smith MD Primary Care Provider Active Dr. Bharath Mercer MD Emergency Provider Active Team Status: Active Member Role Status Dates Dr. Dago Smith MD Primary Care Provider Active Team Status: Inactive Member Role Status Dates Dr. Dago Smith MD Primary Care Provider Active Start: October 24, 2024 End: October 24, 2024 Dr. Dago Smith MD Referring Provider Active Start: October 24, 2024 End: October 24, 2024 Dr. Chele Locke MD Attending Provider Active Start: October 24, 2024 End: October 24, 2024 Team Status: Inactive Member Role Status Dates Dr. Dago Smith MD Primary Care Provider Active Start: October 27, 2024 End: October 27, 2024 Dr. Dago Smith MD Referring Provider Active Start: October 27, 2024 End: October 27, 2024 Dr. Chele Locke MD Attending Provider Active Start: October 27, 2024 End: October 27, 2024 Team Status: Active Member Role Status Dates Dr. Dago Smith MD Primary Care Provider Active Start: October 27, 2024 Trip Green RN Attending Provider Active St art: October 27, 2024 Team Status: Inactive Member Role Status Dates Dr. Dago Smith MD Primary Care Provider Active Start: December 18, 2024 End: December 18, 2024 Dr. Chele Locke MD Attending Provider Active Start: December 18, 2024 End: December 18, 2024 Dr. Chele Locke MD Referring Provider Active Start: December 18, 2024 End: December 18, 2024 Team Status: Active Member Role Status Dates Dr. Dago Smith MD Primary Care Provider Active Start: December 18, 2024 Dr. Chele Locke MD Attending Provider Active Start: December 18, 2024 Team Status: Inactive Member Role Status Dates Dr. Dago Smith MD Primary Care Provider Active Start: December 26, 2024 End: December 26, 2024 Dr. Dago Smith MD Referring Provider Active Start: December 26, 2024 End: December 26, 2024 Dr. Chele Locke MD Attending Provider Active Start: December 26, 2024 End: December 26, 2024 Team Status: Active Member Role/Relationship Status Dates Dr. Dago Smith MD Primary Care Provider Active Team Status: Inactive Member Role/Relationship Status Dates Dr. Dago Smith MD Primary Care Provider Active Start: October 24, 2024 End: October 24, 2024 Dr. Dago Smith MD Referring Provider Active Start: October 24, 2024 End: October 24, 2024 Dr. Chele Locke MD Attending Provider Active Start: October 24, 2024 End: October 24, 2024 Team Status: Inactive Member Role/Relationship Status Dates Dr. Dago Smith MD Primary Care Provider Active Start: October 27, 2024 End: October 27, 2024 Dr. Dago Smith MD Referring Provider Active Start: October 27, 2024 End: October 27, 2024 Dr. Chele Locke MD Attending Provider Active Start: October 27, 2024 End: October 27, 2024 Team Status: Active Member Role/Relationship Status Dates Dr. Dago Smith MD Primary Care Provider Active Start: October 27, 2024 Trip Green RN Attending Provider Active St art: October 27, 2024 Team Status: Inactive Member Role/Relationship Status Dates Dr. Dago Smith MD Primary Care Provider Active Start: December 18, 2024 End: December 18, 2024 Dr. Chele Locke MD Attending Provider Active Start: December 18, 2024 End: December 18, 2024 Dr. Chele Locke MD Referring Provider Active Start: December 18, 2024 End: December 18, 2024 Team Status: Active Member Role/Relationship Status Dates Dr. Dago Smith MD Primary Care Provider Active Start: December 18, 2024 Dr. Chele Locke MD Attending Provider Active Start: December 18, 2024 Team Status: Inactive Member Role/Relationship Status Dates Dr. Dago Smith MD Primary Care Provider Active Start: December 26, 2024 End: December 26, 2024 Dr. Dago Smith MD Referring Provider Active Start: December 26, 2024 End: December 26, 2024 Dr. Chele Locke MD Attending Provider Active Start: December 26, 2024 End: December 26, 2024 Team Status: Inactive Member Role/Relationship Status Dates Dr. Dago Smith MD Primary Care Provider Active Start: January 09, 2025 Dr. Katheryn Aggarwal MD Attending Provider Active Start: January 09, 2025 Team Status: Inactive Member Role/Relationship Status Dates Dr. Dago Smith MD Primary Care Provider Active Start: February 07, 2025 End: February 07, 2025 Dr. Chele Locke MD Attending Provider Active Start: February 07, 2025 End: February 07, 2025 Dr. Chele Locke MD Referring Provider Active Start: February 07, 2025 End: February 07, 2025 Team Status: Inactive Member Role/Relationship Status Dates Dr. Dago Smith MD Primary Care Provider Active Start: December 18, 2024 End: December 18, 2024 Dr. Chele Locke MD Attending Provider Active Start: December 18, 2024 End: December 18, 2024 Dr. Chele Locke MD Referring Provider Active Start: December 18, 2024 End: December 18, 2024 Team Status: Active Member Role/Relationship Status Dates Dr. Dago Smith MD Primary Care Provider Active Start: December 18, 2024 Dr. Chele Locke MD Attending Provider Active Start: December 18, 2024 Team Status: Inactive Member Role/Relationship Status Dates Dr. Dago Smith MD Primary Care Provider Active Start: December 26, 2024 End: December 26, 2024 Dr. Dago Smith MD Referring Provider Active Start: December 26, 2024 End: December 26, 2024 Dr. Chele Locke MD Attending Provider Active Start: December 26, 2024 End: December 26, 2024 Team Status: Inactive Member Role/Relationship Status Dates Dr. Dago Smith MD Primary Care Provider Active Start: January 09, 2025 Dr. Katheryn Aggarwal MD Attending Provider Active Start: January 09, 2025 Team Status: Inactive Member Role/Relationship Status Dates Dr. Dago Smith MD Primary Care Provider Active Start: February 07, 2025 End: February 07, 2025 Dr. Chele Locke MD Attending Provider Active Start: February 07, 2025 End: February 07, 2025 Dr. Chele Locke MD Referring Provider Active Start: February 07, 2025 End: February 07, 2025 Team Status: Inactive Member Role/Relationship Status Dates Dr. Dago Smith MD Primary Care Provider Active Start: February 26, 2025 End: February 26, 2025 Dr. Chele Locke MD Attending Provider Active Start: February 26, 2025 End: February 26, 2025 Dr. Chele Locke MD Referring Provider Active Start: February 26, 2025 End: February 26, 2025 Team Status: Active Member Role/Relationship Status Dates Dr. Dago Smith MD Primary Care Provider Active Start: February 26, 2025 Dr. Chele Locke MD Referring Provider Active Start: February 26, 2025 Dr. Chele Locke MD Other Provider Active Star t: February 26, 2025 Dr. Yadiel Rogers MD Attending Provider Active S tart: February 26, 2025 Team Status: Inactive Member Role/Relationship Status Dates Dr. Dago Smith MD Primary Care Provider Active Start: March 26, 2025 End: March 26, 2025 Dr. Dago Smith MD Referring Provider Active Start: March 26, 2025 End: March 26, 2025 Dr. Katheryn Aggarwal MD Attending Provider Active Start: March 26, 2025 End: March 26, 2025 Team Status: Active Member Role/Relationship Status Dates Dr. Dago Smith MD Primary care physician Activ e Team Status: Inactive Member Role/Relationship Status Dates Dr. Dago Smith MD Primary care physician Activ e Start: December 18, 2024 End: December 18, 2024 Dr. Chele Locke MD Attending physician Active Start: December 18, 2024 End: December 18, 2024 Dr. Chele Locke MD Referring Provider Active Start: December 18, 2024 End: December 18, 2024 Team Status: Active Member Role/Relationship Status Dates Dr. Dago Smith MD Primary care physician Activ e Start: December 18, 2024 Dr. Chele Locke MD Attending physician Active Start: December 18, 2024 Team Status: Inactive Member Role/Relationship Status Dates Dr. Dago Smith MD Primary care physician Activ e Start: December 26, 2024 End: December 26, 2024 Dr. Dago Smith MD Referring Provider Active Start: December 26, 2024 End: December 26, 2024 Dr. Chele Locke MD Attending physician Active Start: December 26, 2024 End: December 26, 2024 Team Status: Inactive Member Role/Relationship Status Dates Dr. Dago Smith MD Primary care physician Activ e Start: January 09, 2025 Dr. Katheryn Aggarwal MD Attending physician Active Start: January 09, 2025 Team Status: Inactive Member Role/Relationship Status Dates Dr. Dago Smith MD Primary care physician Activ e Start: February 07, 2025 End: February 07, 2025 Dr. Chele Locke MD Attending physician Active Start: February 07, 2025 End: February 07, 2025 Dr. Chele Locke MD Referring Provider Active Start: February 07, 2025 End: February 07, 2025 Team Status: Inactive Member Role/Relationship Status Dates Dr. Dago Smith MD Primary care physician Activ e Start: February 26, 2025 End: February 26, 2025 Dr. Chele Locke MD Attending physician Active Start: February 26, 2025 End: February 26, 2025 Dr. Chele Locke MD Referring Provider Active Start: February 26, 2025 End: February 26, 2025 Team Status: Active Member Role/Relationship Status Dates Dr. Dago Smith MD Primary care physician Activ e Start: February 26, 2025 Dr. Chele Locke MD Referring Provider Active Start: February 26, 2025 Dr. Chele Locke MD Nurse Practitioner Active Start: February 26, 2025 Dr. Yadiel Rogers MD Attending physician Active Start: February 26, 2025 Team Status: Inactive Member Role/Relationship Status Dates Dr. Dago Smith MD Primary care physician Activ e Start: March 26, 2025 End: March 26, 2025 Dr. Dago Smith MD Referring Provider Active Start: March 26, 2025 End: March 26, 2025 Dr. Katheryn Aggarwal MD Attending physician Active Start: March 26, 2025 End: March 26, 2025 Team Status: Inactive Member Role/Relationship Status Dates Dr. Dago Smith MD Primary care physician Activ e Start: March 28, 2025 End: March 28, 2025 Dr. Dago Smith MD Referring Provider Active Start: March 28, 2025 End: March 28, 2025 Dr. Chele Locke MD Attending physician Active Start: March 28, 2025 End: March 28, 2025 Goals (unrecognized section and content) Goals [...] ized section and content) DATE CREATED AUTHOR 04/06/2025 [facility] FOR RECORDS PERTAINING TO PATIENTS WHO ARE [...] BE BASED ON THE PRIMARY CLINICAL RECORDS. [facility]. provides no warranty or guarantee of the accuracy or completeness of information in this document.
[2025-04-06 17:52] LABS: BUN 8 mg/dL (4-19); BUN/Creat Ratio 6.5 RATIO (10-20); Calcium,Total 8.5 mg/dL (7.6-11.0); Chloride 105 mmol/L (98-108); Potassium 4.5 mmol/L (3.3-5.1)
[2025-04-06 17:56] LABS: Anion Gap 16 (5-15); Carbon Dioxide 18.1 mmol/L (21.0-32.0); Glucose 139 mg/dL (70-99)
== END | disposition home or self-care (01) ==
LOC: LAB 15:39
PROVIDERS: PCP Internal Medicine; Referring Provider Internal Medicine Cardiovascular Disease; Visit Provider Internal Medicine Cardiovascular Disease
DX: I49.9 Cardiac arrhythmia, unspecified (principal); I10 Essential (primary) hypertension; E03.9 Hypothyroidism, unspecified
CPT/HCPCS: 36415; 80048; 84443

== ENCOUNTER 2025-07-05 12:49 | Emergency (ER) | payer MEDICARE, SELFPAY ==
[2025-07-05 12:51] VITALS: BP 174/95; PULSE 50; RESP 14; TEMP 36.3; O2SAT 100; BMI 39.1
--- NOTE | 2025-07-05 13:50 | RAD_ITS ---
PROCEDURE: SHOULDER MIN 2 VIEWS 07/05/2025 REASON FOR EXAM: PAIN FALL TECHNIQUE: Procedure Code: RADSH Modality: DX Procedure: SHOULDER MIN 2 VIEWS Laterality: Right COMPARISON: None FINDINGS: Bones: No acute fracture. Joints: Normal alignment. Mild degenerative changes. Soft tissues: Soft tissues are unremarkable. RAD/Shoulder min 2 Views IMPRESSION: No acute fracture or dislocation noted in the right shoulder. Mild osteoarthri tis. Reading Location: [facility]
--- NOTE | 2025-07-05 13:50 | RAD_ITS ---
PROCEDURE: KNEE 1 OR 2 VIEWS 07/05/2025 REASON FOR EXAM: PAIN, FALL TECHNIQUE: Procedure Code: RADK Modality: DX Procedure: KNEE 1 OR 2 VIEWS Laterality: Left COMPARISON: None available FINDINGS: Bones: No fracture. No suspicious bone lesion. Joints: Severe degenerative changes. Effusion: No effusion. Soft tissues: Soft tissues are unremarkable. RAD/Knee 1 or 2 Views IMPRESSION: DEGENERATIVE OSTEOARTHROSIS. NO ACUTE FINDINGS. Reading Location: [facility]
--- NOTE | 2025-07-05 13:50 | RAD_ITS ---
PROCEDURE: HAND MIN 3 VIEWS 07/05/2025 REASON FOR EXAM: PAIN, FALL TECHNIQUE: Procedure Code: ABEBE Modality: DX Procedure: HAND MIN 3 VIEWS Laterality: Left COMPARISON: None available FINDINGS: Bones: No acute fracture. Chronic deformity noted at the distal left 5th metacarpal head. Joints: Normal alignment. Scattered degenerative changes are noted, worst at the 1st CMC joint. Soft tissues: Soft tissues are unremarkable. RAD/Hand Min 3 Views IMPRESSION: No acute fracture. Chronic deformity noted at the left distal 5th metacarpal h ead. Scattered osteoarthritis of the hand and wrist, worst at the 1st CMC joint. Reading Location: [facility]
--- NOTE | 2025-07-05 14:04 | CT_ITS ---
PROCEDURE: SPINE CERVICAL WITHOUT CONTRAS 07/05/2025 REASON FOR EXAM: FALL TECHNIQUE: Procedure Code: CTSPC Modality: CT Procedure: SPINE CERVICAL WITHOUT CONTRAS Coronal and Sagittal reconstruction series were provided. One or more dose reduction techniques were used (e.g., Automated exposure control, adjustment of the mA and/or kV according to patient size, use of iterative reconstruction technique. RADIATION DOSE SUMMARY: CTDlvol: 68.05 mGy DLP: 1100.98 mGycm COMPARISON: None FINDINGS: Alignment: Straightening of the cervical lordosis is noted. Vertebrae: No evidence of vertebral body height loss to suggest acute fracture. Soft Tissues: No pneumothorax is seen in the bilateral lung apices. No evidence of rib fracture. The thyroid gland is unremarkable. Multilevel discogenic degenerative changes along with facet arthropathy and uncovertebral spurring. Severe neural foraminal narrowing noted at left C3-4, bilateral C4-5, and bilateral C5-6. No high-grade spinal canal stenosis. CT/Spine Cervical without Contras IMPRESSION: No acute osseous abnormality. Multilevel discogenic degenerative changes along with facet arthropathy and unc overtebral spurring. Severe neural foraminal narrowing noted at left C3-4, bilateral C4-5, and bilateral C5-6. No high-grade spinal canal stenosis. Recommend clinical correlation with neurologic exam and history, if there is radiculopathy or conc jeffrey for cervical spinal cord compression, MRI of the cervical spine should be performed for further evaluation. Reading Location: [facility]
--- NOTE | 2025-07-05 14:04 | CT_ITS ---
PROCEDURE: BRAIN/HEAD WITHOUT CONTRAST 07/05/2025 REASON FOR EXAM: FALL ON ELIQUIS TECHNIQUE: Procedure Code: CTBR Modality: CT Procedure: BRAIN/HEAD WITHOUT CONTRAST Coronal and Sagittal reconstruction series were provided. One or more dose reduction techniques were used (e.g., Automated exposure control, adjustment of the mA and/or kV according to patient size, use of iterative reconstruction technique. RADIATION DOSE SUMMARY: CTDlvol: 68.05 mGy DLP: 1100.98 mGycm COMPARISON: None FINDINGS: Brain: Normal CSF Spaces: Normal Sinuses/Mastoids: Clear at visualized levels Bones: No acute osseous abnormality. CT/Brain/Head without Contrast IMPRESSION: No acute intracranial abnormality. Reading Location: [facility]
--- OUTSIDE RECORDS SUMMARY | 2025-07-05 14:37 | XMS RPT_ITS | CCD ---
Author Organization [facility] Care Team Providers Care Sales Team Recruiter Name Role Phone Dr. Dago Smith Primary [...] Smith Primary Care Provider [phone] Dr. Daog Smith Attending Provider [phone] Dr. Dago Smith [...] [phone] Dr. Dago Smith Referring Provider [phone] Peyman CARLSON PA Vishal Attending Provider Dr. Dago Smith Attending Provider [phone] Chucky, Dr. Elaine Attending Provider [phone] Dr. Dago Smith Primary Care Provider [phone] Luis, Dr. Webb Referring Provider [phone] Peyman CARLSON, PA Vishal Attending Provider Luis, Dr. Webb Attending Provider [phone] Chucky, Dr. Elaine Attending Provider [phone] Luis GUAMAN, Dr. Webb Primary Care Provider Luis GUAMAN, Dr. Webb Referring Provider [phone] Chucky GUAMAN, Dr. Elaine Attending Provider Trip Green RN Attending Provider Unavailabl e Chucky GUAMAN, Dr. Elaine Referring Provider Alessia GUAMAN, Dr. Campa Attending Provider Lius GUAMAN, Dr. Webb Primary Care Provider Chucky GUAMAN, Dr. Elaine Attending Provider Luis GUAMAN, Dr. Webb Referring Provider [phone] Dr. Katheryn Aggarwal MD Attending Provider Chucky GUAMAN, Dr. Elaine Other Provider [phone] Ken GUAMAN, Dr. Cotto Attending Provider Luis GUAMAN, Dr. Webb Primary Care Physician Chucky GUAMAN, Dr. Elaine Attending Physician Dr. Katheryn Aggarwal MD Attending Physician Chucky GUAMAN, Dr. Elaine Nurse Practitioner Ken GUAMAN, Dr. Cotto Attending Physician [phone] Chucky, Chele Consulting Unavailable Chucky, Chele Referring Unavailable Oleghe, Efewongbe Primary Care Unavailable Yadiel Rogers Attending Unavailable Chucky, Chele Attending Unavailable Oleghe, Efewongbe Primary Care Unavailable Trip [...] Oleghe, Efewongbe Primary Care Unavailable Oleghe, Efewongbe Primary Care Unavailable Katheryn Aggarwal Attending Unavailable Oleghe, Efewongbe Referring Unavailable Chucky, Chele Attending Unavailable Oleghe, Efewongbe Primary Care Unavailable Oleghe, Efewongbe Referring Unavailable Chucky, Chele Attending Unavailable Oleghe, Efewongbe Primary Care Unavailable Oleghe, Efewongbe Referring Unavailable Chucky, Chele Attending Unavailable Oleghe, Efewongbe Referring Unavailable Oleghe, Efewongbe Primary Care Unavailable Oleghe, Efewongbe Referring Unavailable Oleghe, Efewongbe Primary Care Unavailable Yanet Schroeder Attending Unavailable Allergies Allergy Classification Reported Allergen(s) Allergy Type Date of Onset Reaction(s) Facility (20 sources) Latex Allergy to substance 10-20-2021 unknown [facility] (1 source) Latex Drug allergy (disorder) 05-10-2025 [facility] Repository Medications Current Medications Medication Drug Class(es) Dates Sig (Normalized) Sig (Original) 8 hr acetaminophen 650 mg extended release oral tablet (20 sources) Start: 10-05-2022 End: 12-23-2022 take 1 tablet by mouth every eight hours as needed for pain Start: 09-06-2018 End: 10-20-2021 take 1 tablet by mouth every six hours as needed Acetaminophen (Tylenol Extra Strength) 500 mg tablet Discontinued 500 mg PO EVERY 6 HOURS as needed September 06, 2018 1:00am October 20, 2021 2:44pm empagliflozin 10 mg oral tablet (2 sources) Sodium-Glucose Cotransporter 2 Inhibitor Start: 03-29-2025 take 1 tablet by mouth once daily in the morning furosemide 40 mg oral tablet (18 sources) Loop Diuretic Start: 04-27-2024 take 1 tablet by mouth once daily Start: 07-26-2023 End: 04-27-2024 take 1 tablet by mouth once daily Furosemide 20 mg tablet Discontinued 20 mg PO DAILY 90 3 July 26, 2023 1:00am April 27, 2024 4:25pm Handicap Parking Placard (6 sources) Start: 12-26-2024 Handicap Parki ng Placard Active 0 .Route .MEDSUPPLY 1 0 December 26, 2024 12:00am Lifetime (renew 12/26/2029) As directed levothyroxine sodium 0.075 mg oral tablet (20 sources) l-Thyroxin e Start: 05-03-2024 End: 04-06-2025 take 1 tablet by mouth once daily Start: 01-18-2024 End: 05-03-2024 take 1 tablet by mouth once daily Levothyroxine 50 mcg tablet Discontinued 50 ug PO DAILY 60 1 January 18, 2024 12:54pm May 03, 2024 [...] DAILY losartan potassium 50 mg oral tablet (11 sources) Angiotensin 2 Receptor Ely Start: 03-28-2025 End: 03-28-2025 take 1 tablet by mouth once daily Start: 12-28-2024 End: 03-28-2025 take 1 tablet by mouth once daily Losartan 25 mg tablet Discontinued 25 mg PO daily 90 3 December 28, 2024 12:00am March 28, 2025 1:36pm 24 hr metoprolol succinate 100 mg extended release oral tablet (8 sources) beta-Adrenergic Ely Start: 10-24-2024 take 1 tablet by mouth once daily naproxen sodium 220 mg oral tablet [...] chloride 20 meq extended release oral tablet (18 sources) Start: 04-27-2024 take 1 tablet by cary th once daily Start: 07-26-2023 End: 04-27-2024 take 1 tablet by mouth once daily Potassium Chloride 10 mEq tablet extended release Discontinued 10 meq PO DAILY 90 3 July 26, 2023 1:00am April 27, 2024 4:25pm Vibegron (11 sources) Start: 07-14-2023 take 1 tablet by mouth once da vicente Start: 07-14-2023 take 1 tablet by mouth [...] Sig (Original) amLODIPine 2.5 mg oral tablet (20 sources) Dihydropyridine Calcium Channel Ely Start: 02-11-2021 End: 10-20-2021 take 1 tablet by mouth once daily Amlodipine 2.5 mg tablet Discontinued 2.5 mg PO DAILY 90 February 11, 2021 12:00am October 20, 2021 2:44pm apixaban 5 mg oral tablet (20 sources) Factor Xa Inhibitor Start: 08-19-2022 End: 03-28-2025 take 1 tablet by mouth twice daily Apixaban (Eliquis) 5 mg tablet Discontinued 5 mg PO TWICE A DAY 60 December 15, 2023 8:31am March 28, 2025 2:43pm cephalexin 500 mg oral capsule (19 sources) Cephalosporin Antibacterial Start: 08-11-2022 End: 08-13-2022 take 1 capsule by mouth every twelve hours Cephalexin 500 mg capsule Discontinued 500 mg PO EVERY 12 HOURS 6 0 August 11, 2022 1:00am August 13, 2022 9:28am dapagliflozin 10 mg oral tablet (7 sources) Sodium-Glucose Cotransporter 2 Inhibitor Start: 12-26-2024 End: 03-28-2025 take 1 tablet by mouth once daily Dapagliflozin Propanediol (Farxiga) 10 mg tablet Discontinued 10 mg PO daily 90 December 26, 2024 12:00am March 28, 2025 2:36pm dexamethasone 6 mg oral tablet (11 sources) Corticosteroid Start: 06-16-2023 End: 10-19-2023 take 1 tablet by mouth once daily Dexamethasone 6 mg tablet Discontinued 6 mg PO DAILY 5 June 16, 2023 1:00am October 19, 2023 9:19am dextromethorphan hydrobromide 2 mg/ml / guaiFENesin 20 mg/ml oral solution (20 sources) Uncompetitive L-froquz-H-aspartate Receptor Antagonist, Sigma-1 Agonist Start: 08-09-2017 End: [...] 24hr Discontinued 360 mg PO DAILY 90 3 July 10, 2024 9:57am October 24, 2024 4:00pm Start: 10-05-2022 End: 12-23-2022 take 1 capsule by mouth twice daily Diltiazem Hcl 120 mg capsule,extended release 12 hr Discontinued 120 mg PO TWICE A DAY 60 12 December 08, 2022 10:30am December 23, 2022 2:26pm diphenhydrAMINE hydrochloride 25 mg oral tablet (20 sources) Histamine-1 Receptor Antagonist Start: 08-04-2018 End: 10-20-2021 take 1 tablet by mouth at bedtime as needed Diphenhydramine Hcl (Kristal-Kane Plus Allergy) 25 mg tablet Discontinued 25 mg PO AT BEDTIME as needed August 04, 2018 1:00am October 20, 2021 2:44pm doxycycline monohydrate 100 mg oral capsule (20 sources) Tetracycline-clas s Drug Start: 05-11-2022 End: 08-13-2022 take 1 capsule by mouth twice daily Doxycycline Monohydrate 100 mg capsule Discontinued 100 mg PO TWICE A DAY 20 May 11, 2022 12:00am August 13, 2022 9:28am L-Desoxyephedrine 50 mg inhaler (8 sources) Start: 08-09-2017 End: 08-04-2018 L-Desoxyephedrine 50 [...] 28, 2018 3:18pm October 20, 2021 2:44pm metroNIDAZOLE 500 mg oral tablet (3 sources) Nitroimidazole Antimicrobial Start: 03-27-2025 End: 04-06-2025 take 1 tablet by mouth twice daily Metronidazole 500 mg tablet Discontinued 500 mg PO TWICE A DAY 14 0 March 27, 2025 12:00am April 06, 2025 3:21pm sacubitril 24 mg / valsartan 26 mg oral tablet (7 sources) Angiotensin 2 Receptor Ely Start: 12-26-2024 [...] 07-31-2022 Chronic Genitourinary symptoms and ill-defined conditions (6 sources) Incontinence; Translations: [Mixed incontinence] 03-27-2025 Chronic Genitourinary symptoms and ill-defined conditions (6 sources) Nocturia; Translations: [Nocturia] 03-27-2025 Episodic Inflammatory diseases of female pelvic organs (6 sources) Acute vaginitis; Translations: [Acute vaginitis] 03-27-2025 Episodic Menopausal disorders (6 sources) Atrophy of vagina; Translations: [Postmenopausal atrophic vaginitis] 03-27-2025 Chronic Open wounds of extremities (20 sources) Laceration of finger with foreign body; Translations: [Laceration with foreign body of right middle finger without damage to nail, initial encounter] 08-11-2022 Episodic Osteoarthritis (20 sources) Osteoarthritis of joint of right shoulder region; Translations: [Primary osteoarthritis, right shoulder] 10-19-2018 Chronic Other aftercare (14 sources) Surgical follow-up; Translations: [Encounter for removal of sutures] 08-24-2022 Episodic Other aftercare (5 sources) Encounter for removal of sutures; Translations: [Encounter for removal of sutures] 08-24-2022 Episodic Other aftercare (3 sources) Removal of sutures done; Translations: [Encounter for removal of sutures] 08-24-2022 Episodic Other and ill-defined heart disease (17 sources) Left ventricular systolic dysfunction; Translations: [Other ill-defined heart diseases] 12-26-2024 Chronic Other and ill-defined heart disease (2 sources) Other ill-defined heart diseases; Translations: [Other ill-defined heart diseases] Onset: 03-08-2025 Chronic Other connective tissue disease (20 sources) Triggering of digit; Translations: [Trigger finger, unspecified finger] 10-20-2021 Episodic Other diseases of veins and lymphatics (18 sources) Peripheral venous insufficiency; Translations: [Venous insufficiency (chronic) (peripheral)] 08-13-2022 Episodic Other diseases of veins and lymphatics (13 sources) Venous insufficiency (chronic) (peripheral); Translations: [Venous (peripheral) insufficiency, unspecified] 08-19-2022 Episodic Other ear and sense organ disorders (20 sources) Hearing loss; Translations: [Unspecified hearing loss, unspecified ear] 09-06-2018 Chronic Other lower respiratory disease (9 sources) Rib pain; Translations: [Pleurodynia] 10-03-2023 Episodic Other nervous system disorders (11 sources) Carpal tunnel syndrome; Translations: [Carpal tunnel syndrome, right upper limb] 10-19-2018 Chronic Other nervous system disorders (9 sources) Carpal tunnel syndrome of right wrist; Translations: [Carpal tunnel syndrome, right upper limb] 06-30-2023 Chronic Other nutritional; endocrine; and metabolic disorders (6 sources) Body mass index 40+ - severely [...] conditions (not mental disorders or infectious disease) (15 sources) Raised TSH level; Translations: [Other specified abnormal findings of blood chemistry] Onset: 04-06-2025 10-22-2022 Episodic Other skin disorders (8 sources) Localized swelling of chest wall; Translations: [...] knee, initial encounter] 08-09-2017 Episodic Thyroid disorders (18 sources) Hypothyroidism; Translations: [Hypothyroidism, unspecified] Onset: 04-06-2025 10-23-2022 Chronic Urinary tract infections (6 sources) Urinary tract infectious disease; Translations: [Urinary tract infection, site not specified] 03-27-2025 Episodic Varicose veins of lower extremity (20 sources) Ankle ulcer; Translations: [Varicose veins of unspecified lower extremity with ulcer of ankle] 07-31-2022 Episodic Viral infection (14 sources) Disease caused by 2019-nCoV; Translations: [COVID-19] 06-16-2023 Episodic Results Test Name Value Interpretation Reference Range Facility Internal Medicine Office Vis [facility] 05-10-2025 Internal Medicine Office Visit [facility] Internal Medicine [address] [place] [address] [place] [address] OFFICE VISIT Date of Service: 05/10/25 MR#: [id number] Acct: [id number] Name: YOSEF JENNINGS Rep #: [id number] : 1940 Provider: SEBAS edward Age/Sex: 84/F [place] [facility] [place] Status: Signed Intake Vital Signs 03/28/25 12:58 05/10/25 15:12 Height 5 ft 6 in 5 ft 6 in Weight: 248 lb 245 lb BMI 40.0 39.5 BP 149/84 H 136/86 H Blood Pressure Location Lt radial Lt brachial Position Sitting Sitting Respiration 20 H 18 Pulse 77 76 Pulse Source Monitor Monitor Temp 96.8 F L Temp Source Temporal Pulse Oximetry (%) 99 Oxygen Delivery Method room air Intake Visit Reasons: FU + blood test results Chief Complaint: FU + blood test results Is patient in pain?: No Allergies latex Allergy (Mild, Verified 05/10/25 15:14) unknown Medications ???Medication ???Instructions ???Recorded ???Confirmed ???Type acetaminophen 650 mg 650 mg PO Q8H PRN fever or pain 05/10/25 History tablet,extended release (Tylenol 8 Hour) vibegron 75 mg tablet 75 mg PO DAILY 07/14/23 04/06/25 H istory furosemide 40 mg tablet 40 mg PO QDAY #90 tabs 04/27/24 Rx potassium chloride 20 mEq 20 meq PO QDAY #90 tabs 04/27/24 1 Rx tablet,extended release metoprolol succinate 100 mg 100 mg PO QDAY #90 tabs 10/24/24 0 04/06/25 Rx tablet,extended release 24 hr Handicap Parking Placard #1 ea 12/26/24 05/10/25 Rx apixaban 5 mg tablet (Eliquis) 5 mg PO BID #60 tabs 03/28/2504/13 Rx losartan 50 mg tablet 50 mg PO QDAY this is a dose 03/2805/10/25 Rx increase #90 tabs empagliflozin 10 mg tablet 10 mg PO QAM #30 tabs 03/29/25 Rx (Jardiance) levothyroxine 75 mcg tablet 75 mcg PO DAILY #60 tabs 05/10/25 05/10/25 Rx Have you fallen in the past year?: No Nurse's Note: pt reports that she stopped taking her levothyroxine due to reading on FB that it causes weight gain pt reports freqeunt yeast infections while taking jardiance [facility] Medical History Urinary tract infection Nocturia Mixed [...] and active job HPI HPI Chief Complaint: FU + blood test results Details: YOSEF JENNINGS, is a 84 F who presents to the office today for follow-up after blood work. Patient had labs completed by cardiology which showed a TSH of 11.4. Patient states she had stopped taking her levothyroxine as she had read on Facebook that it can cause weight gain. She states the associate merchant office told her that she needed to follow-up with her PCP due to this elevation. She also states while taking the Jardiance she has been getting yeast infections however she found [id number]-[id number]-nyyfiyd medication and it is working well for her. 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 No other concerns today. Denies any chest pain or shortness of breath no nausea vomiting or diarrhea. ROS Const Constitutional: No body ache, chills, excessive sweating, fatigue, fever(s), frequent falls, headache(s), snoring, weight change, sleep problems, abnormal sleep pattern or change in appetite Eyes Eyes: No blurry vision, change in vision, eye pain or Light sensitivity ENT ENT: No abnormal hearing, ear or mastoid pain, tinnitus, nasal congestion, headache(s), neck pain or sore throat Resp Respiratory: N (more content not included)... Normal [facility] Anion gap in Serum or Plasma Ordered By: Chele Locke on 04-06-2025 Anion gap [Moles/Vol] 16 mmol/L High 5-15 [facility] Comment on above: Previous reported re sult: 15 Edited by: VERITO on 04/06/25:175 AMENDED REPORT 04/06/251755 GAP previously reported as: 15 BUN/creatinine ratioOrdered By: Chele Locke on 04-06-2025 Urea nitrogen/Creatinine [Mass ratio] 6.5 mg/mg Low 10-20 [facility] Basic Metabolic Profile (BMP )on 04-06-2025 CO2 [Moles/Vol] 18.1 mmol/L Low 21.0-32.0 [facility] Comment on above: Result Comment: AMENDED REPORT 04/06/251755 CO2 previously reported as: 18.5 L mmol/L Performed By: #### L 500.2500, L501.9520 #### [facility] [address] [place], [address] GAP 16 High 5-15 [facility] Comment on above: Result Comment: AMENDED REPORT 04/06/251755 GAP previously reported as: 15 Performed By: #### L 500.2500, L501.9520 #### [facility] [address] [place], [address] Glucose [Mass/Vol] 139 mg/dL High 70-99 [facility] Comment on above: Result Comment: AMENDED REPORT 04/06/251755 GLU previously reported as: 137 H mg/dL Performed By: #### L 500.2500, L501.9520 #### [facility] [address] [place], [address] Carbon dioxide, total [Moles /volume] in Central venous bloodOrdered By: Chele Locke on 04-06-2025 CO2 [Moles/Vol] 18.1 mmol/L Low 21.0-32.0 [facility] Comment on above: Previous reported re sult: 18.5 mmol/LEdited by: VERITO on 04/06/25:1755 AMENDED REPORT 04/06/251755 CO2 previously reported as: 18.5 L mmol/L Chloride assayOrdered By: Krish Locke on 04-06-2025 Chloride [Moles/Vol] 105 mmol/L 98-108 [facility] Glomerular filtration rate ( GFR) estimation/1.73 sq m using serum, plasma, or whole bOrdered By: Chele Locke on 04-06-2025 GFR/1.73 sq M.predicted among non-blacks MDRD (S/P/Bld) [Vol rate/Area] 45 mL/min/{1.73_m2} Low >60 [facility] Comment on above: mL/min/1.73m2 CKD-EP I Creatinine Equation (2020) Office Visit Reporton 2024 Office Visit Report [facility] [address] [address] OFFICE VISIT Date of Service: 04/06/25 MR#: [id number] Acct: [id number] Patient: YOSEF JENNINGS Rep #: [id number] : 1940 Provider: Dr. Chele Locke MD Age/Sex: 84/F Location: [facility] [place] Status: Signed Intake Vital Signs 03/28/25 12:58 04/06/25 15:22 Height 5 ft 6 in Weight: 248 lb BMI 40.0 BP 149/84 H 122/68 H Blood Pressure Location Lt radial Lt brachial Position Sitting Sitting Respiration 20 H 20 H Pulse 77 84 Pulse Source Monitor NIBP Pulse Oximetry (%) 97 Oxygen Delivery Method room air Intake Visit Reasons: Blood pressure check Radio Machinist Required: No Is patient in pain?: No Allergies latex Allergy (Mild, Verified 04/06/25 15:21) unknown Medications ???Medication ???Instructions ???Recorded ???Confirmed ???Type acetaminophen 650 mg 650 mg PO Q8H PRN fever or pain 04/06/25 History tablet,extended release (Tylenol 8 Hour) vibegron 75 mg tablet 75 mg PO DAILY 07/14/23 04/06/25 H istory furosemide 40 mg tablet 40 mg PO QDAY #90 tabs 04/27/24 Rx potassium chloride 20 mEq 20 meq PO QDAY #90 tabs 04/27/24 0 04/06/25 Rx tablet,extended release metoprolol succinate 100 mg 100 mg PO QDAY #90 tabs 10/24/24 0 04/06/25 Rx tablet,extended release 24 hr Handicap Parking Placard #1 ea 12/26/24 03/07/25 Rx apixaban 5 mg tablet (Eliquis) 5 mg PO BID #60 tabs 03/28/2503/13 01/03 Rx losartan 50 mg tablet 50 mg PO QDAY this is a dose 03/2804/06/25 Rx increase #90 tabs empagliflozin 10 mg tablet 10 mg PO QAM #30 tabs 03/29/25 Rx (Jardiance) levothyroxine 75 mcg tablet 75 mcg PO DAILY 04/06/25 History Have you fallen in the past year?: No Nurse's Note: Patient here for BP check after increasing losartan to 50 mg daily. Patient states that she has not been taking her levothyroxine. Last TSH 12.3 on 05/04/24. TSH ordered to be drawn with BMP. States she will do this on Wednesday. Assessment and Plan Assessment and Plan Orders: Orders Thyroid Stim Hormone (TSH) Today E03.9 - Hypothyroidism, unspecified, R79.89 - Other specified abnormal findings of blood chemistry Clinical Quality Measures Falls Risk Screening/Assistive Devices Have you fallen in the past year?: No 04/06/25 1609 Date Carola Mora NP, NP-C Cosigner Signature: Date (if applicable) CC: Dr. Chele Locke MD Normal [facility] Potassium measurement (mass/ volume)Ordered By: Chele Locke on 04-06-2025 Potassium (Unsp spec) [Mass/Vol] 4.5 mmol/L 3.3-5.1 [facility] Serum creatinine measurement (mass/volume)Ordered By: Chele Locke on 04-06-2025 Creatinine [Mass/Vol] 1.19 mg/dL 0.70-1.20 [facility] Serum glucose measurement (m ass/volume)Ordered By: Chele Locke on 04-06-2025 Glucose [Mass/Vol] 139 mg/dL High 70-99 [facility] Comment on above: Previous reported re sult: 137 mg/dLEdited by: AUTOINS on 04/06/25:1756 AMENDED REPORT 04/06/251755 GLU previously reported as: 137 H mg/dL Serum or plasma calcium selina urement (mass/volume)Ordered By: Chele Locke on 04-06-2025 Calcium [Mass/Vol] 8.5 mg/dL 7.6-11.0 [facility] Serum or plasma urea nitroge n measurement (mass/volume)Ordered By: Chele Locke on 04-06-2025 Urea nitrogen [Mass/Vol] 8 mg/dL 4-19 [facility] Sodium levelOrdered By: Himanshu Locke on 04-06-2025 Sodium [Moles/Vol] 139 mmol/L 133-145 [facility] TSH DL <= 0.005 mIU/L QnOrde red By: Chele Locke on 04-06-2025 TSH Qn 11.400 uIU/mL High 0.300-4.200 [facility] Thyroid Stim Hormone (TSH)on 04-06-2025 TSH 11.400 uIU/mL High 0.300-4.200 [facility] Comment on above: Performed By: #### L 500.2500, L501.9520 #### [facility] [address] [place], [place], [address] Cardiology Visit Reporton Cardiology Visit Report [facility] [address] [place] [address] OFFICE VISIT Date of Service: 03/28/25 MR#: [id number] Acct: [id number] Name: YOSEF JENNINGS Rep #: [id number] : 1940 Provider: Dr. Chele Locke MD Age/Sex: 84/F [place] [facility] [place] Status: Signed HPI HPI History of Present [...] F Intake Visit Reasons: 3 M FU Radio Machinist Required: No Accompanied by: Self Is patient [...] Echocardiogram Stress (more content not included)... Normal [facility] MR/Angel 03-26-2025 /[facility] [address], [address] [place] [address] OFFICE VISIT Date of Service: 03/26/25 MR#: [id number] Acct: [id number] Name: YOSEF JENNINGS Rep #: [id number] : 1940 Provider: Dr. Katheryn Mack i, MD Age/Sex: 84/F [place] [facility] [place] Status: Signed Intake Vital Signs 12/26/24 14:55 03/26/25 15:29 Height 5 ft 6.14 in 5 ft 6 in Weight: 230 lb BMI 37.1 BP 128/78 H Pulse 68 Temp 98.2 F Intake Visit Reasons: 3 mo pessary cleaning Chief Complaint: 3 MONTH PESSARY CLEANING Radio Machinist Required: No Is patient in pain?: No Allergies latex Allergy (Mild, Verified 10/24/24 14:39) unknown Have you fallen in the past year?: No PFSH Medical History (Updated 03/27/25 @ 10:57 by [...] Complaint: 3 MONTH PESSARY CLEANING Details: YOSEF OLDAKER, is a 84 F. She is not [...] healthy appearing, comfortable and no acute distress [facility] Head: normocephalic and atraumatic Ears: hearing [...] Vaginal pat (more content not included)... Normal [facility] Cardiovascular stress test r eportOrdered By: Yadiel Rogers on 02-26-2025 Study report [facility] [address] [place] [address] MR#: [id number] Acct: [id number] Name: YOSEF JENNINGS Rep #: [id number] : 1940 84 From: Yadiel Rogers MD Primary Care: Dr. Dago Smith MD atus: REG CLI Referring Dr: Chele Locke [...] perfusion stress test. Preserved ejection fraction. 02/26/25 182 Date _ Yadiel Rogers MD CC: Dr. Chele Locke MD; Dr. Dago Smith MD ~ Date Dictated: 02/26/251823 Date Transcribed: 02/26/251823 Process Engineering Technician: CO Signed [facility] Work Phone: Stress Reporton 02-26-2025 Stress Report [facility] [address] [place] [address] MR#: [id number] Acct: [id number] Name: YOSEF JENNINGS Rep #: [id number] : 1940 84 From: Yadiel Rogers MD [...] MD Date Dictated: 02/26/251823 Date Transcribed: 02/26/251823 Process Engineering Technician: CO Signed Normal [facility] Anion gap in Serum or Plasma Ordered By: Chele Locke on 02-07-2025 Anion gap [Moles/Vol] 12 mmol/L 5-15 [facility] BUN/creatinine ratioOrdered By: Chele Locke on 02-07-2025 Urea nitrogen/Creatinine [Mass ratio] 20.6 mg/mg High - [facility] Basic Metabolic Profile (BMP )on 02-07-2025 BUN/CRE 20.6 [facility] - [facility] Comment on above: Performed By: #### L [id number] #### [facility] [address] [place], [address] Calcium [Mass/Vol] 9.3 mg/dL Normal 7.6-11.0 [facility] Comment on above: Performed By: #### L [id number] #### [facility] [address] [place], [address] Chloride [Moles/Vol] 106 mmol/L Normal 98-108 [facility] Comment on above: Performed By: #### L [id number] #### [facility] [address] [place], [address] CO2 [Moles/Vol] 20.1 mmol/L Low 21.0-32.0 [facility] Comment on above: Performed By: #### L [id number] #### [facility] [address] [place], [address] Creatinine [Mass/Vol] 1.08 mg/dL Normal 0.70-1.20 [facility] Comment on above: Performed By: #### L [id number] #### [facility] [address] [place], [address] GAP 12 Normal 5-15 [facility] Comment on above: Performed By: #### L [id number] #### [facility] [address] [place], [address] GFR/1.73 sq M.predicted among non-blacks MDRD (S/P/Bld) [Vol rate/Area] 51 mL/min/{1.73_m2} Low >60 [facility] Comment on above: Result Comment: mL/m in/1.73m2 CKD-EPI Creatinine Equation (2020) Performed By: #### L [id number] #### [facility] [address] [place], [address] Glucose [Mass/Vol] 99 mg/dL Normal 70-99 [facility] Comment on above: Performed By: #### L [id number] #### [facility] [address] [place], [address] Potassium [Moles/Vol] 4.6 mmol/L Normal 3.3-5.1 [facility] Comment on above: Performed By: #### L [id number] #### [facility] [address] [place], [address] Sodium [Moles/Vol] 139 mmol/L Normal 133-145 [facility] Comment on above: Performed By: #### L [id number] #### [facility] [address] [place], [address] Urea nitrogen [Mass/Vol] 22 mg/dL High 4-19 [facility] Comment on above: Performed By: #### L [id number] #### [facility] [address] [place], [address] Carbon dioxide, total [Moles /volume] in Central venous bloodOrdered By: Chele Locke on 02-07-2025 CO2 [Moles/Vol] 20.1 mmol/L Low 21.0-32.0 [facility] Chloride assayOrdered By: Krish Locke on 02-07-2025 Chloride [Moles/Vol] 106 mmol/L 98-108 [facility] Glomerular filtration rate ( GFR) estimation/1.73 sq m using serum, plasma, or whole bOrdered By: Chele Locke on 02-07-2025 GFR/1.73 sq M.predicted among non-blacks MDRD (S/P/Bld) [Vol rate/Area] 51 mL/min/{1.73_m2} Low >60 [facility] Comment on above: mL/min/1.73m2 CKD-EP I Creatinine Equation (2020) Potassium measurement (mass/ volume)Ordered By: Chele Locke on 02-07-2025 Potassium (Unsp spec) [Mass/Vol] 4.6 mmol/L 3.3-5.1 [facility] Serum creatinine measurement (mass/volume)Ordered By: Chele Locke on 02-07-2025 Creatinine [Mass/Vol] 1.08 mg/dL 0.70-1.20 [facility] Serum glucose measurement (m ass/volume)Ordered By: Chele Locke on 02-07-2025 Glucose [Mass/Vol] 99 mg/dL 70-99 [facility] Serum or plasma calcium selina urement (mass/volume)Ordered By: Chele Locke on 02-07-2025 Calcium [Mass/Vol] 9.3 mg/dL 7.6-11.0 [facility] Serum or plasma urea nitroge n measurement (mass/volume)Ordered By: Chele Locke on 02-07-2025 Urea nitrogen [Mass/Vol] 22 mg/dL High 4-19 [facility] Sodium levelOrdered By: Himanshu Locke on 02-07-2025 Sodium [Moles/Vol] 139 mmol/L 133-145 [facility] Cardiology Visit Reporton Cardiology Visit Report [facility] [address] [place] [address] OFFICE VISIT Date of Service: 12/26/24 MR#: [id number] Acct: [id number] Name: YOSEF JENNINGS Rep #: [id number] : 1940 Provider: Dr. Chele Locke MD Age/Sex: 84/F [place] [facility] [place] Status: Signed HPI HPI History of Present [...] 5 mg PO BID #60 tabs 12/15/23 05/03/05 Rx furosemide 40 mg tablet 40 mg [...] moderately enlarged (more content not included)... Normal [facility] Echo Completeon 12-18-2024 Echo Complete [facility] [address] [place] [address] Echo Complete 12/18/24 1008 MR#: [id number] Acct: [id number] Name: YOSEF JENNINGS Rep #: [id number] : 1940 84 From: Chele Locke MD Attending Dr: Dr. Chele Locke MD Status: REG CLI Ordering Dr: Chele Locke MD Date: 12/18/24 Location: [facility] Sex: F C Admitted: Reason For Study [...] Dictated: 12/18/24 1008 Date Transcribed: 12/18/24 132 Process Engineering Technician: Signed Normal [facility] Echocardiogram study reportO rdered By: Chele Locke on 12-18-2024 Study report [facility] [address] [place] [address] Echo Complete 12/18/24 1008 MR#: [id number] Acct: [id number] Name: YOSEF JENNINGS Rep #:[id number] : 1940 84 From: Chele Locke MD Attending Dr: Dr. Chele Locke MD Status: REG CLI Ordering Dr: Chele Locke MD Date: Location: [facility] Sex: F C Admitted: Reason For Study [...] Dictated: 12/18/24 1008 Date Transcribed: 12/18/24 1323 Process Engineering Technician: Clarice [facility] Work Phone: Office Visit Reporton 2024 Office Visit Report [facility] [address] [place] [address] OFFICE VISIT Date of Service: MR#: [id number] Acct: [id number] Patient: YOSEF JENNINGS Rep #: [id number] : 1940 Provider: Trip Green Age/Sex: 84/F Location[place] [facility] [place] Status: Signed Intake Vital Signs 10/24/24 08:55 [...] CC: Trip Green; Dr. Chele Locke MD [facility] Cardiology Visit Reporton Cardiology Visit Report [facility] [address] [place] [address] OFFICE VISIT Date of Service: 10/24/24 MR#: [id number] Acct: [id number] Name: YOSEF JENNINGS Rep #: [id number] : 1940 Provider: Dr. 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 Normal [facility] Basophil percentageOrdered B y: Chele Locke on 07-29-2023 Chloride [Moles/Vol] 109 mmol/L 98-107 [facility] Glucose [Mass/Vol] 115 mg/dL 74-106 [facility] Comment on above: Fasting Glucose resu lt from 100 to 125 mg/dL suggests IMPAIRED HOMEOSTASIS per A.D.A. criteria. Potassium [Moles/Vol] 4.4 mmol/L 3.5-5.1 [facility] Sodium [Moles/Vol] 139 mmol/L 136-145 [facility] - Chemistry and C hemistry - challengeOrdered By: Chele Locke on 07-29-2023 CO2 [Moles/Vol] 26.0 mmol/L 21.0-32.0 [facility] Urea nitrogen/Creatinine [Mass ratio] 19.3 mg/mg 10-20 [facility] No Panel InformationOrdered By: Chele Locke on 07-29-2023 Estimated GFR (MDRD) Amer 56 mL/min >60 [facility] Comment on above: GFR Calc Estimated GFR (MDRD) Non-Af Amer 46 mL/min >60 [facility] Comment on above: Non- GFR Calc Serum or plasma calcium selina urement (mass/volume)Ordered By: Chele Locke on 07-29-2023 Calcium [Mass/Vol] 9.5 mg/dL 8.5-10.1 [facility] Serum or plasma creatinine m easurement (mass/volume)Ordered By: Chele Locke on 07-29-2023 Creatinine [Mass/Vol] 1.19 mg/dL 0.55-1.02 [facility] Comment on above: The validity of the calculated GFR & GFRAA in patients over 70 years has not been determined. Clinical correlation is essential. Serum or plasma urea nitroge n measurement (mass/volume)Ordered By: Chele Locke on 07-29-2023 Urea nitrogen [Mass/Vol] 23 mg/dL 01-26 [facility] Thin prep Papanicolaou smear with manual screeningOrdered By: Chele Locke on 07-29-2023 Thin prep Papanicolaou smear with manual screening 4 5-15 [facility] Absolute lymphocyte countOrd ered By: Dago Smith on 07-14-2023 Lymphocytes Auto (Unsp spec) [#/Vol] 1.84 10*3/uL 0.83-4.51 [facility] Basophil percentageOrdered B y: Dago Smith on 07-14-2023 Basophils/100 WBC (Bld) 0.6 % 0-1 [facility] Bilirubin [Mass/Vol] 0.20 mg/dL 0.20-1.00 [facility] Comment on above: For patients on eltr ombopag therapy, use of Dimension [place] TBIL is not recommended. Chloride [Moles/Vol] 108 mmol/L 98-107 [facility] Cholesterol [Mass/Vol] 192 mg/dL <200 [facility] Comment on above: <200 mg/dL Desirable 200-240 mg/dL Borderline >240 mg/dL High Risk Eosinophils/100 WBC (Bld) 1.9 % 0-5 [facility] Glucose [Mass/Vol] 100 mg/dL 74-106 [facility] Comment on above: Fasting Glucose resu lt from 100 to 125 mg/dL suggests IMPAIRED HOMEOSTASIS per A.D.A. criteria. Neutrophils (Bld) [#/Vol] 5.8 10*3/uL 2.0-7.7 [facility] Neutrophils/100 WBC (Bld) 66.0 % 47-70 [facility] Potassium [Moles/Vol] 4.1 mmol/L 3.5-5.1 [facility] Protein [Mass/Vol] 6.9 g/dL 6.4-8.2 [facility] Sodium [Moles/Vol] 138 mmol/L 136-145 [facility] Triglyceride [Mass/Vol] 100 mg/dL <199 [facility] Comment on above: The drugs N-Acetylcy steine and Metamizole may falsely depress this assay.Serum Triglycerides Reference Interval Normal <150 mg/dL Borderline high 150 - 199 mg/dL High 200 - 499 mg/dL Very High > or = 500 mg/dL WBC (Bld) [#/Vol] 8.7 10*3/uL 4.4-11.0 [facility] Blood erythrocytes count (nu mber/volume)Ordered By: Dago Smith on 07-14-2023 RBC (Bld) [#/Vol] 4.27 10*6/uL 4.2-5.[address] [facility] Blood hemoglobin measurement (mass/volume)Ordered By: Dago Smith on 07-14-2023 Hemoglobin (Bld) [Mass/Vol] 12.0 g/dL 12.0-15.0 [facility] Blood lymphocytes/100 leukoc ytesOrdered By: Dago Smith on 07-14-2023 Lymphocytes/100 WBC (Bld) 21.1 % 19-41 [facility] Blood monocytes/100 leukocyt esOrdered By: Dago Smith on 07-14-2023 Monocytes/100 WBC (Bld) 9.6 % 0-10 [facility] Blood platelet mean volumeOr dered By: mita Smith on 07-14-2023 Platelet mean volume (Bld) [Entitic vol] 9.4 fL 6.2-12.0 [facility] Determination of erythrocyte mean corpuscular volume (MCV)Ordered By: Dago Smith on 07-14-2023 MCV (RBC) [Entitic vol] 91.1 fL 81-99 [facility] Hematocrit Auto (Bld) [Volum e fraction]Ordered By: [facility] Camdenjeni Smith on 07-14-2023 Hematocrit (Bld) [Volume fraction] 38.9 % 37-47 [facility] - Chemistry and C hemistry - challengeOrdered By: [facility] Aureliojean on 07-14-2023 ALP [Catalytic activity/Vol] 110 U/L 45-117 [facility] ALT [Catalytic activity/Vol] 22 U/L 13-56 [facility] CO2 [Moles/Vol] 26.0 mmol/L 21.0-32.0 [facility] Free T4 [Mass/Vol] 0.73 ng/dL 0.76-1.46 [facility] Globulin (S) [Mass/Vol] 3.8 g/dL 2.2-4.2 [facility] Urea nitrogen/Creatinine [Mass ratio] 17.9 mg/mg 10-20 [facility] - Hematology and Cell countsOrdered By: gwynverdijeni Careyjean on 07-14-2023 Erythrocyte distribution width (RBC) [Entitic vol] 48.0 fL 35.1-43.9 [facility] Erythrocyte distribution width (RBC) [Ratio] 14.5 % 11.6-14.6 [facility] Immature granulocytes/100 WBC (Bld) 0.800 % 0.0-0.9 [facility] Comment on above: IG% - Immature Granu locytes (promyelocytes, myelocytes and metamyelocytes) > 1% indicates that a LEFT SHIFT is Present. MCH (RBC) [Entitic mass] 28.1 pg 27.0-32.0 [facility] Nucleated RBC/100 WBC (Bld) [Ratio] 0 % 0[facility]5 [facility] [Mass/Vol]Or dered By: Dago Smith on 07-14-2023 MCHC (RBC) [Mass/Vol] 30.8 g/dL 32-36 [facility] No Panel InformationOrdered By: Dago Smith on 07-14-2023 Estimated GFR (MDRD) Amer 54 mL/min >60 [facility] Comment on above: GFR Calc Estimated GFR (MDRD) Non-Af Amer 44 mL/min >60 [facility] Comment on above: Non- GFR Calc Thyroid Stimulating Hormone (TSH) 6.74 uIU/mL 0.358-3.74 [facility] Platelets bldOrdered By: Jose Smith on 07-14-2023 Platelets (Bld) [#/Vol] 257 10*3/uL 150-450 [facility] Serum or plasma albumin selina urement (mass/volume)Ordered By: Dago Smith on 07-14-2023 Albumin [Mass/Vol] 3.1 g/dL 3.2-5.0 [facility] Serum or plasma albumin/glob ulin mass ratioOrdered By: Dago Smith on 07-14-2023 Albumin/Globulin [Mass ratio] 0.8 {ratio} 0.9-2.4 [facility] Serum or plasma calcium selina urement (mass/volume)Ordered By: Dago Smith on 07-14-2023 Calcium [Mass/Vol] 9.3 mg/dL 8.5-10.1 [facility] Serum or plasma cholesterol in HDL measurement (mass/volume)Ordered By: Dago Smith on 07-14-2023 Cholesterol in HDL [Mass/Vol] 58 mg/dL >40 [facility] Comment on above: The drugs N-Acetylcy steine and Metamizole may falsely depress this assay. Reference Range HDL <40 mg/dL Low HDL Cholesterol HDL >or= 60 mg/dL High HDL Cholesterol Serum or plasma cholesterol in VLDL measurement (mass/volume)Ordered By: Dago Smith on 07-14-2023 Cholesterol in VLDL [Mass/Vol] 20 mg/dL 5-40 [facility] Serum or plasma creatinine m easurement (mass/volume)Ordered By: Dago Smith on 07-14-2023 Creatinine [Mass/Vol] 1.23 mg/dL 0.55-1.02 [facility] Comment on above: The validity of the calculated GFR & GFRAA in patients over 70 years has not been determined. Clinical correlation is essential. Serum or plasma low density lipoprotein (LDL) cholesterol measurement (mass/volume)Ordered By: Dago Smith on 07-14-2023 Cholesterol in LDL [Mass/Vol] 114 mg/dL 0-130 [facility] Serum or plasma urea nitroge n measurement (mass/volume)Ordered By: Dago Smith on 07-14-2023 Urea nitrogen [Mass/Vol] 22 mg/dL 7-18 [facility] Thin prep Papanicolaou smear with manual screeningOrdered By: Dago Smith on 07-14-2023 Thin prep Papanicolaou smear with manual screening 12 U/L 15-37 [facility] Thin prep Papanicolaou smear with manual screening 4 5-15 [facility] - Microbiology an d Antimicrobial susceptibilityon 06-16-2023 SARS-CoV-2 (COVID-19) RNA JUNIOR+probe Ql (Unsp spec) Detected [facility] No Panel Informationon 06-16 POC Nasal Swab Influenza A,B Not detected [facility] POC Nasal Swab RSV Not detected [facility] - Chemistry and C hemistry - challengeOrdered By: Dr. Smith on 10-21-2022 Free T4 [Mass/Vol] 0.58 ng/dL 0.76-1.46 [facility] No Panel InformationOrdered By: Dr. Locke on 10-21-2022 Thyroid Stimulating Hormone (TSH) 9.45 uIU/mL 0.358-3.74 [facility] Absolute lymphocyte countOrd ered By: Michael Sánchez on 07-31-2022 Lymphocytes Auto (Unsp spec) [#/Vol] 2.01 10*3/uL 0.83-4.51 [facility] Basophil percentageOrdered B y: Michael Sánchez on 07-31-2022 Basophils/100 WBC (Bld) 0.7 % 0-1 [facility] Chloride [Moles/Vol] 112 mmol/L 98-107 [facility] Eosinophils/100 WBC (Bld) 1.6 % 0-5 [facility] Glucose [Mass/Vol] 110 mg/dL 74-106 [facility] Comment on above: Fasting Glucose resu lt from 100 to 125 mg/dL suggests IMPAIRED HOMEOSTASIS per A.D.A. criteria. Lactate [Moles/Vol] 0.4 mmol/L 0.4-2.[address] [facility] Neutrophils (Bld) [#/Vol] 4.1 10*3/uL 2.0-7.7 [facility] Neutrophils/100 WBC (Bld) 58.3 % 47-70 [facility] Potassium [Moles/Vol] 4.6 mmol/L 3.5-5.1 [facility] Comment on above: Moderate Hemolysis, Result may be falsely increased. Sodium [Moles/Vol] 141 mmol/L 136-145 [facility] WBC (Bld) [#/Vol] 7.0 10*3/uL 4.4-11.0 [facility] Blood erythrocytes count (nu mber/volume)Ordered By: Michael Sánchez on 07-31-2022 RBC (Bld) [#/Vol] 4.25 10*6/uL 4.2-5.[address] [facility] Blood hemoglobin measurement (mass/volume)Ordered By: Michael Sánchez on 07-31-2022 Hemoglobin (Bld) [Mass/Vol] 12.5 g/dL 12.0-15.0 [facility] Blood lymphocytes/100 leukoc ytesOrdered By: Michael Sánchez on 07-31-2022 Lymphocytes/100 WBC (Bld) 28.9 % 19-41 [facility] Blood manual differential co mment interpretation (narrative result)Ordered By: Michael Sánchez on 07-31-2022 Manual differential comment Shant (Bld) [Interp] SCANNED [facility] Blood monocytes/100 leukocyt esOrdered By: Michael Sánchez on 07-31-2022 Monocytes/100 WBC (Bld) 10.2 % 0-10 [facility] Blood platelet adequacy dete ction by light microscopyOrdered By: Michael Sánchez on 07-31-2022 Platelets LM Ql (Bld) ADEQUATE ADEQ [facility] Blood platelet mean volumeOr dered By: Michael Sánchez on 07-31-2022 Platelet mean volume (Bld) [Entitic vol] 10.7 fL 6.2-12.0 [facility] Determination of erythrocyte mean corpuscular volume (MCV)Ordered By: Michael Sánchez on 07-31-2022 MCV (RBC) [Entitic vol] 90.6 fL 81-99 [facility] Erythrocyte sedimentation ra teOrdered By: Michael Sánchez on 07-31-2022 ESR (Bld) [Velocity] 13 mm/h 0-30 [facility] Hematocrit Auto (Bld) [Volum e fraction]Ordered By: Michael Sánchez on 07-31-2022 Hematocrit (Bld) [Volume fraction] 38.5 % 37-47 [facility] - Chemistry and C hemistry - challengeOrdered By: Michael Sánchez on 07-31-2022 CO2 [Moles/Vol] 25.0 mmol/L 21.0-32.0 [facility] Urea nitrogen/Creatinine [Mass ratio] 34.8 mg/mg 10-20 [facility] - Hematology and Cell countsOrdered By: Michael Sánchez on 07-31-2022 Erythrocyte distribution width (RBC) [Entitic vol] 47.3 fL 35.1-43.9 [facility] Erythrocyte distribution width (RBC) [Ratio] 14.3 % 11.6-14.6 [facility] Immature granulocytes/100 WBC (Bld) 0.300 % 0.0-0.9 [facility] Comment on above: IG% - Immature Granu locytes (promyelocytes, myelocytes and metamyelocytes) > 1% indicates that a LEFT SHIFT is Present. MCH (RBC) [Entitic mass] 29.4 pg 27.0-32.0 [facility] Nucleated RBC/100 WBC (Bld) [Ratio] 0 % 0-5 [facility] MCHC Auto (RBC) [Mass/Vol]Or dered By: Michael Sánchez on 07-31-2022 MCHC (RBC) [Mass/Vol] 32.5 g/dL 32-36 [facility] No Panel InformationOrdered By: Michael Sánchez on 07-31-2022 Estimated Creatinine Clearance Calc 36.88 ml/min [facility] Estimated GFR (MDRD) Amer 60 mL/min >60 [facility] Comment on above: GFR Calc Estimated GFR (MDRD) Non-Af Amer 50 mL/min >60 [facility] Comment on above: Non- GFR Calc Platelets bldOrdered By: Joseph Sánchez on 07-31-2022 Platelets (Bld) [#/Vol] 139 10*3/uL 150-450 [facility] Serum or plasma C reactive p rotein measurement (mass/volume)Ordered By: Michael Sánchez on 07-31-2022 CRP [Mass/Vol] mg/L 0.0-3.0 [facility] Comment on above: C-Reactive Protein ( CRP) provides useful information for thediagnosis, therapy and monitoring of inflammatory processesand associated diseases. For the evaluation of Relative Riskfor Cardiovascular Disease, a High Sensitivity CRP (HSCRP)should be ordered. Serum or plasma calcium selina urement (mass/volume)Ordered By: Michael Sánchez on 07-31-2022 Calcium [Mass/Vol] 9.1 mg/dL 8.5-10.1 [facility] Serum or plasma creatinine m easurement (mass/volume)Ordered By: Michael Sánchez on 07-31-2022 Creatinine [Mass/Vol] 1.12 mg/dL 0.55-1.02 [facility] Comment on above: The validity of the calculated GFR & GFRAA in patients over 70 years has not been determined. Clinical correlation is essential. Serum or plasma urea nitroge n measurement (mass/volume)Ordered By: Michael Sánhcez on 07-31-2022 Urea nitrogen [Mass/Vol] 39 mg/dL 7-18 [facility] Thin prep Papanicolaou smear with manual screeningOrdered By: Michael Sánchez on 07-31-2022 Thin prep Papanicolaou smear with manual screening 4 5-15 [facility] Vital Signs Date Time Vital Sign Value Performing Clinician Faci lity 04-06-2025 15:22-0400 Diastolic blood pressure 68 mm[Hg] Dr. Dago Smith MD Work Phone: [facility] 04-06-2025 15:22-0400 Heart rate 84 /min Dr. Dago Smith MD Work Phone: [facility] 04-06-2025 15:22-0400 Respiratory rate 20 /min Dr. Dago Smith MD Work Phone: [facility] 04-06-2025 15:22-0400 SaO2% (BldA) [Mass fraction] 97 % Dr. Dago Smith MD Work Phone: [facility] 04-06-2025 15:22-0400 Systolic blood pressure 122 mm[Hg] Dr. Dago Smith MD Work Phone: [facility] 03-28-2025 12:58-0400 Body height 167.[address] Dago Smith MD Work Phone: [facility] 03-28-2025 12:58-0400 Body mass index (BMI) [Ratio] 40 kg/m2 Dr. Dago Smith MD Work Phone: [facility] 03-28-2025 12:58-0400 Body weight 112.[address] Dago Smith MD Work Phone: [facility] 03-28-2025 12:58-0400 Diastolic blood pressure 84 mm[Hg] Dr. Dago Smith MD Work Phone: [facility] 03-28-2025 12:58-0400 Heart rate 77 /min Dr. Dago Smith MD Work Phone: [facility] 03-28-2025 12:58-0400 Respiratory rate 20 /min Dr. Dago Smith MD Work Phone: [facility] 03-28-2025 12:58-0400 Systolic blood pressure 149 mm[Hg] Dr. Dago Smith MD Work Phone: [facility] 03-26-2025 15:29-0400 Body mass index (BMI) [Ratio] 37.1 kg/m2 Dr. Dago Smiht MD Work Phone: [facility] 03-26-2025 15:29-0400 Body temperature 98.2 [degF] Dr. Dago Smith MD Work Phone: [facility] 03-26-2025 15:29-0400 Body weight 104.[address] Dago Smith MD Work Phone: [facility] 03-26-2025 15:29-0400 Diastolic blood pressure 78 mm[Hg] Dr. Dago Smith MD Work Phone: [facility] 03-26-2025 15:29-0400 Heart rate 68 /min Dr. Dago Smith MD Work Phone: [facility] 03-26-2025 15:29-0400 Systolic blood pressure 128 mm[Hg] Dr. Dago Smith MD Work Phone: [facility] 12-26-2024 14:55-0400 Body height [address] Dago Smith MD Work Phone: [facility] 12-26-2024 14:55-0400 Body mass index (BMI) [Ratio] 39.2 kg/m2 Dr. Dago Smith MD Work Phone: [facility] 12-26-2024 14:55-0400 Body weight 110.[address] Dago Smith MD Work Phone: [facility] 12-26-2024 14:55-0400 Diastolic blood pressure 71 mm[Hg] Dr. Dago Smith MD Work Phone: [facility] 12-26-2024 14:55-0400 Heart rate 61 /min Dr. Dago Smith MD Work Phone: [facility] 12-26-2024 14:55-0400 Respiratory rate 18 /min Dr. Dago Smith MD Work Phone: [facility] 12-26-2024 14:55-0400 Systolic blood pressure 140 mm[Hg] Dr. Dago Smith MD Work Phone: [facility] 10-27-2024 16:20-0400 Diastolic blood pressure 86 mm[Hg] Dr. Dago Smith MD Work Phone: [facility] 10-27-2024 16:20-0400 Heart rate 69 /min Dr. Dago Smith MD Work Phone: [facility] 10-27-2024 16:20-0400 Respiratory rate 18 /min Dr. Dago Smith MD Work Phone: [facility] 10-27-2024 16:20-0400 Systolic blood pressure 141 mm[Hg] Dr. Dago Smith MD Work Phone: [facility] 10-24-2024 08:55-0400 Body height [address] Dago Smith MD Work Phone: [facility] 10-24-2024 08:55-0400 Body mass index (BMI) [Ratio] 40.1 kg/m2 Dr. Dago Smith MD Work Phone: [facility] 10-24-2024 08:55-0400 Body weight 113.[address] Dago Smith MD Work Phone: [facility] 10-24-2024 08:55-0400 Diastolic blood pressure 68 mm[Hg] Dr. Dago Smith MD Work Phone: [facility] 10-24-2024 08:55-0400 Heart rate 53 /min Dr. Dago Smith MD Work Phone: [facility] 10-24-2024 08:55-0400 Respiratory rate 18 /min Dr. Dago Smith MD Work Phone: [facility] 10-24-2024 08:55-0400 Systolic blood pressure 127 mm[Hg] Dr. Dago Smith MD Work Phone: [facility] 10-03-2023 11:11-0400 Body temperature 97.2 [degF] Dr. Dago Smith Work Phone: [facility] 10-03-2023 11:11-0400 Diastolic blood pressure 97 mm[Hg] Dr. Dago Smith Work Phone: [facility] 10-03-2023 11:11-0400 Heart rate 74 /min Dr. Dago Smith Work Phone: [facility] 10-03-2023 11:11-0400 Respiratory rate 16 /min Dr. Dago Smith Work Phone: [facility] 10-03-2023 11:11-0400 SaO2% (BldA) [Mass fraction] 96 % Dr. Dago Smith Work Phone: [facility] 10-03-2023 11:11-0400 Systolic blood pressure 160 mm[Hg] Dr. Dago Smith Work Phone: [facility] 10-03-2023 08:54-0400 Body height [address] Dago Smith Work Phone: [facility] 10-03-2023 08:54-0400 Body mass index (BMI) [Ratio] 36.9 kg/m2 Dr. Dago Smith Work Phone: [facility] 10-03-2023 08:54-0400 Body weight 104.[address] Dago Smith Work Phone: [facility] 07-26-2023 13:16-0500 Body height 167.[address] Dago Smith Work Phone: [facility] 07-26-2023 13:16-0500 Body mass index (BMI) [Ratio] 38.4 kg/m2 Dr. Dago Smith Work Phone: [facility] 07-26-2023 13:16-0500 Body weight 107.[address] Dago Smith Work Phone: [facility] 07-26-2023 13:16-0500 Diastolic blood pressure 87 mm[Hg] Dr. Dago Smith Work Phone: [facility] 07-26-2023 13:16-0500 Heart rate 90 /min Dr. Dago Smith Work Phone: [facility] 07-26-2023 13:16-0500 Respiratory rate 16 /min Dr. Dago Smith Work Phone: [facility] 07-26-2023 13:16-0500 Systolic blood pressure 144 mm[Hg] Dr. Dago Smith Work Phone: [facility] 07-14-2023 15:24-0500 Body height 167.[address] Dago Smith Work Phone: [facility] 07-14-2023 15:24-0500 Body mass index (BMI) [Ratio] 38.4 kg/m2 Dr. Dago Smith Work Phone: [facility] 07-14-2023 15:24-0500 Body temperature 97.5 [degF] Dr. Dago Smith Work Phone: [facility] 07-14-2023 15:24-0500 Body weight 107.[address] Dago Smith Work Phone: [facility] 07-14-2023 15:24-0500 Diastolic blood pressure 82 mm[Hg] Dr. Dago Smith Work Phone: [facility] 07-14-2023 15:24-0500 Heart rate 91 /min Dr. Dago Smith Work Phone: [facility] 07-14-2023 15:24-0500 Respiratory rate 16 /min Dr. Dago Smith Work Phone: [facility] 07-14-2023 15:24-0500 SaO2% (BldA) [Mass fraction] 97 % Dr. Dago Smith Work Phone: [facility] 07-14-2023 15:24-0500 Systolic blood pressure 140 mm[Hg] Dr. Dago Smith Work Phone: [facility] 06-16-2023 10:26-0500 Body temperature 98.1 [degF] Dr. Dago Smith Work Phone: [facility] 06-16-2023 10:26-0500 Diastolic blood pressure 97 mm[Hg] Dr. Dgao Smith Work Phone: [facility] 06-16-2023 10:26-0500 Heart rate 84 /min Dr. Dago Smith Work Phone: [facility] 06-16-2023 10:26-0500 SaO2% (BldA) [Mass fraction] 95 % Dr. Dago Smith Work Phone: [facility] 06-16-2023 10:26-0500 Systolic blood pressure 163 mm[Hg] Dr. Dago Smith Work Phone: [facility] 12-23-2022 13:41-0400 Body height 167.[address] Dago Smith Work Phone: [facility] 12-23-2022 13:41-0400 Body mass index (BMI) [Ratio] 44.9 kg/m2 Dr. Dago Smiht Work Phone: [facility] 12-23-2022 13:41-0400 Body weight 126.[address] Dago Smith Work Phone: [facility] 12-23-2022 13:41-0400 Diastolic blood pressure 85 mm[Hg] Dr. Dago Smith Work Phone: [facility] 12-23-2022 13:41-0400 Heart rate 84 /min Dr. Dago Smith Work Phone: [facility] 12-23-2022 13:41-0400 Respiratory rate 16 /min Dr. Dago Smith Work Phone: [facility] 12-23-2022 13:41-0400 Systolic blood pressure 132 mm[Hg] Dr. Dago Smith Work Phone: [facility] 10-29-2022 08:23-0400 Body temperature 96 [degF] Dr. Dago Smith Work Phone: [facility] 10-29-2022 08:23-0400 Diastolic blood pressure 96 mm[Hg] Dr. Dago Smith Work Phone: [facility] 10-29-2022 08:23-0400 Heart rate 89 /min Dr. Dago Smith Work Phone: [facility] 10-29-2022 08:23-0400 Respiratory rate 16 /min Dr. Dago Smith Work Phone: [facility] 10-29-2022 08:23-0400 Systolic blood pressure 160 mm[Hg] Dr. Dago Smith Work Phone: [facility] 10-08-2022 08:26-0400 Body temperature 95.6 [degF] Dr. Dago Smith Work Phone: [facility] 10-08-2022 08:26-0400 Diastolic blood pressure 99 mm[Hg] Dr. Dago Smith Work Phone: [facility] 10-08-2022 08:26-0400 Heart rate 78 /min Dr. Dago Smith Work Phone: [facility] 10-08-2022 08:26-0400 Systolic blood pressure 157 mm[Hg] Dr. Dago Smith Work Phone: [facility] 10-05-2022 12:59-0400 Body height 167.[address] Dago Smith Work Phone: [facility] 10-05-2022 12:59-0400 Body mass index (BMI) [Ratio] 33.7 kg/m2 Dr. Dago Smith Work Phone: [facility] 10-05-2022 12:59-0400 Body weight 94.[address] Dago Smith Work Phone: [facility] 10-05-2022 12:59-0400 Diastolic blood pressure 93 mm[Hg] Dr. Dago Smith Work Phone: [facility] 10-05-2022 12:59-0400 Heart rate 94 /min Dr. Dago Smith Work Phone: [facility] 10-05-2022 12:59-0400 Respiratory rate 16 /min Dr. Dago Smith Work Phone: [facility] 10-05-2022 12:59-0400 Systolic blood pressure 148 mm[Hg] Dr. Dago Smith Work Phone: [facility] 10-01-2022 08:20-0400 Respiratory rate 18 /min Dr. Dago Smith Work Phone: [facility] 09-03-2022 08:29-0500 Body temperature 95.5 [degF] Dr. Dago Smith Work Phone: [facility] 09-03-2022 08:29-0500 Diastolic blood pressure 90 mm[Hg] Dr. Dago Smith Work Phone: [facility] 09-03-2022 08:29-0500 Heart rate 102 /min Dr. Dago Smith Work Phone: [facility] 09-03-2022 08:29-0500 Respiratory rate 18 /min Dr. Dago Smith Work Phone: [facility] 09-03-2022 08:29-0500 Systolic blood pressure 152 mm[Hg] Dr. Dago Smith Work Phone: [facility] 08-24-2022 10:56-0500 Body height 167.[address] Dago Smith Work Phone: [facility] 08-24-2022 10:56-0500 Body mass index (BMI) [Ratio] 34 kg/m2 Dr. Dago Smith Work Phone: [facility] 08-24-2022 10:56-0500 Body temperature 96.4 [degF] Dr. Dago Smith Work Phone: [facility] 08-24-2022 10:56-0500 Body weight 95.[address] Dago Smith Work Phone: [facility] 08-24-2022 10:56-0500 Diastolic blood pressure 62 mm[Hg] Dr. Dago Smith Work Phone: [facility] 08-24-2022 10:56-0500 Heart rate 63 /min Dr. Dago Smith Work Phone: [facility] 08-24-2022 10:56-0500 Respiratory rate 16 /min Dr. Dago Smith Work Phone: [facility] 08-24-2022 10:56-0500 SaO2% (BldA) [Mass fraction] 98 % Dr. Dago Smith Work Phone: [facility] 08-24-2022 10:56-0500 Systolic blood pressure 124 mm[Hg] Dr. Dago Smith Work Phone: [facility] 08-19-2022 16:28-0500 Body height 167.[address] Dago Smith Work Phone: [facility] 08-19-2022 16:28-0500 Body mass index (BMI) [Ratio] 34.8 kg/m2 Dr. Dago Smith Work Phone: [facility] 08-19-2022 16:28-0500 Body temperature 96.5 [degF] Dr. Dago Smith Work Phone: [facility] 08-19-2022 16:28-0500 Body weight 97.[address] Dago Smith Work Phone: [facility] 08-19-2022 16:28-0500 Diastolic blood pressure 99 mm[Hg] Dr. Dago Smith Work Phone: [facility] 08-19-2022 16:28-0500 Heart rate 90 /min Dr. Dago Smith Work Phone: [facility] 08-19-2022 16:28-0500 Respiratory rate 16 /min Dr. Dago Smith Work Phone: [facility] 08-19-2022 16:28-0500 SaO2% (BldA) [Mass fraction] 99 % Dr. Dago Smith Work Phone: [facility] 08-19-2022 16:28-0500 Systolic blood pressure 160 mm[Hg] Dr. Dago Smith Work Phone: [facility] 08-13-2022 08:20-0500 Body temperature 97.3 [degF] Dr. Dago Smith Work Phone: [facility] 08-13-2022 08:20-0500 Diastolic blood pressure 87 mm[Hg] Dr. Dago Smith Work Phone: [facility] 08-13-2022 08:20-0500 Heart rate 97 /min Dr. Dago Smith Work Phone: [facility] 08-13-2022 08:20-0500 Systolic blood pressure 155 mm[Hg] Dr. Dago Smith Work Phone: [facility] 08-11-2022 17:14-0500 Body height 167.[address] Dago Smith Work Phone: [facility] 08-11-2022 17:14-0500 Body mass index (BMI) [Ratio] 34.8 kg/m2 Dr. Dago Smith Work Phone: [facility] 08-11-2022 17:14-0500 Body temperature 97 [degF] Dr. Dago Smith Work Phone: [facility] 08-11-2022 17:14-0500 Body weight 97.[address] Dago Smith Work Phone: [facility] 08-11-2022 17:14-0500 Diastolic blood pressure 91 mm[Hg] Dr. Dago Smith Work Phone: [facility] 08-11-2022 17:14-0500 Heart rate 102 /min Dr. Dago Smith Work Phone: [facility] 08-11-2022 17:14-0500 Respiratory rate 14 /min Dr. Dago Smith Work Phone: [facility] 08-11-2022 17:14-0500 SaO2% (BldA) [Mass fraction] 96 % Dr. Dago Smith Work Phone: [facility] 08-11-2022 17:14-0500 Systolic blood pressure 113 mm[Hg] Dr. Dago Smith Work Phone: [facility] 07-31-2022 03:12-0500 Heart rate 69 /min Dr. Dago Smith Work Phone: [facility] 07-31-2022 03:12-0500 Respiratory rate 15 /min Dr. Dago Smith Work Phone: [facility] 07-31-2022 03:12-0500 SaO2% (BldA) [Mass fraction] 98 % Dr. Dago Smith Work Phone: [facility] 07-31-2022 01:53-0500 Diastolic blood pressure 85 mm[Hg] Dr. Dago Smith Work Phone: [facility] 07-31-2022 01:53-0500 Systolic blood pressure 169 mm[Hg] Dr. Dago Smith Work Phone: [facility] 07-31-2022 01:44-0500 Body height 167.[address] Dago Smith Work Phone: [facility] 07-31-2022 01:44-0500 Body mass index (BMI) [Ratio] 35.3 kg/m2 Dr. Dago Smith Work Phone: [facility] 07-31-2022 01:44-0500 Body temperature 98 [degF] Dr. Dago Smith Work Phone: [facility] 07-31-2022 01:44-0500 Body weight 99.[address] Dago Smith Work Phone: [facility] 05-11-2022 12:28-0400 Body temperature 98 [degF] Dr. Dago Smith Work Phone: [facility] 05-11-2022 12:28-0400 Diastolic blood pressure 82 mm[Hg] Dr. Dago Smith Work Phone: [facility] 05-11-2022 12:28-0400 Heart rate 57 /min Dr. Dago Smith Work Phone: [facility] 05-11-2022 12:28-0400 Respiratory rate 14 /min Dr. Dago Smith Work Phone: [facility] 05-11-2022 12:28-0400 SaO2% (BldA) [Mass fraction] 99 % Dr. Dago Smith Work Phone: [facility] 05-11-2022 12:28-0400 Systolic blood pressure 132 mm[Hg] Dr. Dago Smith Work Phone: [facility] Encounters Encounter Date Encounter Type Care Provider Facility Start: 05-10-2025 End: 05-10-2025 [place]ago [place] [place]: 04-06-2025 End: 04-06-[address] Chele Locke MD -[facility] Work Phone: Start: 04-06-2025 End: 04-06-[address] Dago Smith MD Work Phone: [facility] Start: 04-06-2025 End: 04-06-2025 ambulatory Chele Locke Facility:[facility] Start: 03-28-2025 End: 03-28-[address] Chele Locke MD -[facility] Work Phone: Start: 03-28-2025 End: 03-28-[address] Dago Smith MD Work Phone: -[facility] Start: 03-26-2025 End: 03-26-[address] Katheryn Aggarwal MD -[facility] Work Phone: Start: 03-26-2025 End: 03-26-[address] Dago Smith MD Work Phone: -[facility] Start: 02-26-2025 ambulatory Chele Locke Facility:[facility] Start: 02-26-2025 Non-patient / Non-visit Dr. Halima GUAMAN -[facility] Start: 02-26-2025 End: 02-26-[address] Dago Smith MD Work Phone: -[facility] Services Start: 02-26-2025 End: 02-26-[address] Chele Locke MD -[facility] Work Phone: Start: 02-26-2025 End: 02-26-2025 ambulatory [facility] Facility:[facility] Start: 02-07-2025 End: 02-07-[address] Dago Smith MD Work Phone: -Laboratory Start: 02-07-2025 End: 02-07-[address] Chele Locke MD -Laboratory Work Phone: Start: 02-07-2025 End: 02-07-2025 ambulatory Chele Chucky Facility:[facility] Start: 01-09-2025 Non-patient / Non-visit Dr. Katheryn he MD -[facility] Work Phone: Start: 12-26-2024 End: 12-26-[address] Chele Locke MD -[facility] Work Phone: Start: 12-26-2024 End: 12-26-[address] Dago Smith MD Work Phone: [facility] Work Phone: Start: 12-18-2024 Non-patient / Non-visit Dr. Chele taylor MD -[facility] Start: 12-18-2024 End: 12-18-[address] Dago Smith MD Work Phone: [facility] Work Phone: Start: 12-18-2024 End: 12-18-[address] Chele Locke MD -[facility] Work Phone: Start: 12-18-2024 End: 12-18-2024 ambulatory [facility] Facility:[facility] Start: 10-27-2024 Non-patient / Non-visit Trip valverde -[facility] Work Phone: Start: 10-27-2024 End: 10-27-[address] Chele Locke MD -[facility] Work Phone: Start: 10-27-2024 End: 10-27-2024 ambulatory [facility] [place] [place] Start: 10-24-2024 End: 10-24-[address] Chele Locke MD -[facility] Work Phone: Start: 10-24-2024 End: 10-24-2024 ambulatory [facility] [place] [place] Start: 10-03-2023 End: 10-03-2023 Emergency department patient visit Dr. Dago Smith Work Phone: [facility]Emergency Department Work Phone: Start: 07-29-2023 End: 07-29-[address] Dago Smith Work Phone: [facility] Work Phone: Start: 07-29-2023 End: 07-29-[address] Dago Smith Work Phone: [facility]Laboratory Work Phone: Start: 07-26-2023 End: 07-26-[address] Dago Smith Work Phone: [facility] Work Phone: Start: 07-14-2023 End: 07-14-[address] Dago Smith Work Phone: [facility] Work Phone: Start: 07-14-2023 End: 07-14-[address] Dago Smith Work Phone: [facility] Work Phone: Start: 06-16-2023 End: 06-16-[address] Dago Smith Work Phone: [facility] Work Phone: Start: 01-04-2023 Non-patient / Non-visit Dr. Reg Smith Work Phone: [facility] Start: 01-04-2023 End: 01-04-[address] Dago Smith Work Phone: [facility] Work Phone: Start: 01-04-2023 End: 01-04-[address] [facility] Start: 12-23-2022 End: 12-23-[address] Dago Smith Work Phone: [facility] Work Phone: Start: 11-27-2022 Non-patient / Non-visit Dr. Reg Smith Work Phone: [facility] Work Phone: Start: 11-06-2022 Non-patient / Non-visit Dr. Reg Smith Work Phone: [facility] Start: 11-02-2022 Non-patient / Non-visit Dr. Reg Smith Work Phone: [facility] Start: 11-02-2022 End: 11-02-[address] Dago Smith Work Phone: [facility] Work Phone: Start: 11-02-2022 End: 11-02-[address] Dago Smith Work Phone: [facility]Card[facility] Start: 10-29-2022 End: 11-08-[address] Dago Smith Work Phone: [facility] Work Phone: Start: 10-29-2022 End: 11-08-[address] Dago Smith Work Phone: [facility] Start: 10-29-[address] Omar Smith Work Phone: [facility] Start: 10-08-2022 End: 10-09-[address] Dago Smith Work Phone: [facility] Work Phone: Start: 10-08-2022 End: 10-09-[address] Dago Smith Work Phone: [facility] Start: 10-05-2022 End: 10-05-[address] Dago Smith Work Phone: [facility] Start: 09-03-2022 End: 09-08-[address] Dago Smith Work Phone: [facility] Work Phone: Start: 09-03-2022 End: 09-08-[address] Dago Smith Work Phone: [facility] Start: 09-03-[address] Omar Smith Work Phone: [facility] Start: 09-01-2022 End: 09-01-2022 Non-patient / Non-visit Dr. Dago Smith Work Phone: [facility] Start: 09-01-2022 End: 09-01-[address] Dago Smith Work Phone: [facility] Work Phone: Start: 09-01-2022 End: 09-01-[address] Dago Smith Work Phone: [facility]-Pulmonary Services/Neurology Start: 08-24-2022 End: 08-24-[address] Dago Smith Work Phone: [facility] Start: 08-19-2022 End: 08-19-2022 Emergency department patient [facility] Start: 08-19-[address] Omar Smith Work Phone: [facility]Cardi[facility] Start: 08-11-2022 End: 08-11-2022 Emergency department patient visit Dr[facility]ago [facility] Start: 07-31-2022 End: 07-31-2022 Emergency department patient visit Dr. Dago Smith Work Phone: [facility]Emer[facility] Start: 05-11-2022 End: 05-11-[address] Dago Smith Work Phone: [facility] Procedures Date Procedure Procedure Detail [...] Date Care Activity Detail Author Start: 10-03-2023 [facility] Start: 08-11-2022 Simple repair scalp/neck/ax/genit/trunk 2.5cm/< RPR S/N/AX/GEN/TRNK 2.5CM/< [facility] Basic metabolic 2008 panel with ionized calcium - Serum or Plasma [facility] NM Heart Views W str ess and W radionuclide IV [facility] Patient Education [facility] Work Phone: Patient referral [facility] Work Phone: Referral for further care [facility] Thyroid stimulating hormone measurement [facility] US Heart [facility] Immunizations Immunization Date Immunization Notes Care Provider Nicolette luis 04-14-2024 influenza, seasonal, injectable, preservative free Dr. Dago Smith MD Work Phone: [facility] 04-14-2023 influenza, injectabl e, quadrivalent, preservative free Dr. Dago Smith Work Phone: [facility] 08-11-2022 tetanus toxoid, redu rosa diphtheria toxoid, and acellular pertussis vaccine, adsorbed Dr. Dago Smith Work Phone: [facility] 04-29-2022 influenza, injectabl e, quadrivalent, preservative free Dr. Dago Smith Work Phone: [facility] 04-29-2022 influenza, seasonal, injectable Dr. Dago Smith Work Phone: [facility] 12-12-2021 Covid (Pfizer) Dr. Dago Smith Work Phone: [facility] 05-27-2021 Covid (Moderna) Dr. Carolina Smith Work Phone: [facility] 04-18-2021 influenza, injectabl e, quadrivalent, preservative free Dr. Dago Smith Work Phone: [facility] 04-18-2021 influenza, seasonal, injectable Dr. Dago Smith Work Phone: [facility] 04-18-2021 influenza, seasonal, injectable, preservative free Dr. Dago Smith MD Work Phone: [facility] 08-13-2020 Covid (Moderna) Dr. Carolina Smith Work Phone: [facility] 07-16-2020 Covid (Moderna) Dr. Carolina Smith Work Phone: [facility] 04-29-2020 influenza, injectabl e, quadrivalent, preservative free Dr. Dago Smith Work Phone: [facility] 04-29-2020 influenza, seasonal, injectable Dr. Dago Smith Work Phone: [facility] 04-29-2020 influenza, seasonal, injectable, preservative free Dr. Dago Smith MD Work Phone: [facility] 05-02-2019 influenza, injectabl e, quadrivalent, preservative free Dr. Dago Smith Work Phone: [facility] 05-02-2019 influenza, seasonal, injectable Dr. Dago Smith Work Phone: [facility] 04-08-2018 influenza, injectabl e, quadrivalent, preservative free Dr. Dago Smith Work Phone: [facility] 04-08-2018 influenza, seasonal, injectable Dr. Dago Smith Work Phone: [facility] 04-16-2017 influenza, injectabl e, quadrivalent, preservative free Dr. Dago Smith Work Phone: [facility] 04-16-2017 influenza, seasonal, injectable Dr. Dago Smith Work Phone: [facility] 04-27-2016 influenza, injectabl e, quadrivalent, preservative free Dr. Dago Smith Work Phone: [facility] 04-27-2016 influenza, seasonal, injectable Dr. Dago Smith Work Phone: [facility] 04-11-2015 influenza, injectabl e, quadrivalent, preservative free Dr. Dago Smith Work Phone: [facility] 04-11-2015 influenza, seasonal, injectable Dr. Dago Smith Work Phone: [facility] 04-11-2014 influenza, injectabl e, quadrivalent, preservative free Dr. Dago Smith Work Phone: [facility] 04-11-2014 influenza, seasonal, injectable Dr. Dago Smith Work Phone: [facility] Payers Date Payer Category Payer Medicare [id number] 2024 Self-pay [id number] 2005 Medicare MEDICARE PART A B [id number] [facility] Private Health Insurance 101 [id number] Private Health Insurance [id number] Unknown [id number] 2.16.840.1.970644.3.579.2.462 Unknown [id number] 2.16.840.1.853366.3.579.2.462 Unknown [id number] 2.16.840.1.177183.3.579.2.462 Unknown [id number] 2.16.840.1.350376.3.579.2.462 Unknown [id number] 2.16.840.1.743351.3.579.2.462 Unknown [id number] 2.16.840.1.055057.3.579.2.462 Unknown [id number] 2.16.840.1.655131.3.579.2.462 Unknown [id number] 2.16.840.1.928486.3.579.2.462 Unknown [id number] 2.16.840.1.823925.3.579.2.462 Unknown [id number] 2.16.840.1.468654.3.579.2.462 Unknown [id number] 2.16.840.1.533687.3.579.2.462 Unknown [id number] 2.16.840.1.109118.3.579.2.462 Social History Date Type Detail Facility Start: 07-31-2022 End: 10-03-2023 Tobacco smoking status NHIS Unknown if ever smoked [facility] Start: 1940 Sex Assigned At Female [facility] Start: 10-19-2023 Tobacco smoking stat us SCIS Never smoked tobacco (finding) [facility] Sex Female [facility] Mental Status Date Assessment Result Facility 08-19-2022 Cognitive function Level Of Cons ciousness Awake;Alert;Appropriate;Follow s Commands [facility] Work Phone: Clinical Notes 08-11-2022 to 04-06-2025 Note Date & Type Note Facility 04-06-2025 Progress note [facility] 04-06-2025 Progress note Note Date/Time April 06, 2025 4:09pm [facility] [address] [place] [address] OFFICE VISIT Date of Service: 04/06/25 MR#: [id number] Acct: [id number] Patient: YOSEF JENNINGS Rep #: [id number] : 1940 Provider: Dr. Himanshu Locke MD Age/Sex: 84/F Location: [facility] [place] Status: Signed Intake Vital Signs 03/28/25 12:58 04/06/25 15:22 Height 5 ft 6 in Weight: 248 lb BMI 40.0 BP 149/84 H 122/68 H Blood Pressure Location Lt radial Lt brachial Position Sitting Sitting Respiration 20 H 20 H Pulse 77 84 Pulse Source Monitor NIBP Pulse Oximetry (%) 97 Oxygen Delivery Method room air Intake Visit Reasons: Blood pressure check Radio Machinist Required: No Is patient in pain?: No Allergies latex Allergy (Mild, Verified 04/06/25 15:21) unknown Medications ?Medication ?Instructions ?Recorded ?Confirmed ?Type acetaminophen 650 mg 650 mg PO Q8H PRN fever or p ain 12/23/22 04/06/25 History tablet,extended release (Tylenol 8 Hour) vibegron 75 mg tablet 75 mg PO DAILY 07/14/2303/13 History furosemide 40 mg tablet 40 mg PO QDAY #90 tabs 04/2704/06/25 Rx potassium chloride 20 mEq 20 meq PO QDAY #90 tabs 04/1104/06/25 Rx tablet,extended release metoprolol succinate 100 mg 100 mg PO QDAY #90 tabs 04/06/25 Rx tablet,extended release 24 hr Handicap Parking Placard #1 ea 12/26/24 03/07/25 Rx apixaban 5 mg tablet (Eliquis) 5 mg PO BID #60 tabs 04/06/25 Rx losartan 50 mg tablet 50 mg PO QDAY this is a dose 03/28/25 04/06/25 Rx increase #90 tabs empagliflozin 10 mg tablet 10 mg PO QAM #30 tabs 03/2904/06/25 Rx (Jardiance) levothyroxine 75 mcg tablet 75 mcg PO DAILY 04/06/25 History Have you fallen in the past year?: No Nurse's Note: Patient here for BP check after increasing losartan to 50 mg daily. Patient states that she has not been taking her levothyroxine. Last TSH 12.3 on 05/04/24. TSH ordered to be drawn with BMP. States she will do this on Wednesday. Assessment and Plan Assessment and Plan Orders: Orders Thyroid Stim Hormone (TSH) Today E03.9 - Hypothyroidism, unspecified, R79.89 - Other specified abnormal findings of blood chemistry Clinical Quality Measures Falls Risk Screening/Assistive Devices Have you fallen in the past year?: No 04/06/25 1609 <Electronically signed by Carola Mora NP, NP-C> Date _ Carola Mora NP, NP-C Cosign Signature: Date (if applicable) CC: Dr. Chele Locke MD ~ [facility] Work Phone: 1(439) 946-960509-17-2025 Progress [facility] [address] [place], [place] [id number] OFFICE VISIT Date of Service: 03/28/25 MR#: [id number] Acct: [id number] Name: DICKYOSEF SWEET Rep #: [id number] : 1940 Provider: Dr. Himansuh Locke MD Age/Sex: 84/F [place] [facility] [place] Status: Signed HPI HPI History of Present [...] F Intake Visit Reasons: 3 M FU Radio Machinist Required: No Accompanied by: Self Is patient [...] Check blood pressure in office in 7 to10 days time. (4) DVT (deep venous thrombosis): [...] Cardiac Ejection fraction %: 35 03/28/25 1328 > Date _ Chele Locke MD Cosigner Signature: Date (if applicable) CC: Dr. Dago Smith MD ~ [facility]09-17-2025 Progress note Author Chele Locke [facility] Note Date/Time March 28, 2025 1:28pm [facility] [address] [place] [address] OFFICE VISIT Date of Service: 03/28/25 MR#: [id number] Acct: [id number] Name: YOSEF JENNINGS Rep #: [id number] : 1940 Provider: Dr. Himanshu Locke MD Age/Sex: 84/F [place] [facility] [place] Status: Signed HPI HPI History of Present [...] F Intake Visit Reasons: 3 M FU Radio Machinist Required: No Accompanied by: Self Is patient [...] applicable) CC: Dr. Dago Smith MD ~ [facility] Work Phone: 1(329) 897-157506-17-2025 Evaluation note* Diagnosis Onset Date Resolution Status Admit Date Atrial fibrillation chronic December 26, 2024 2:25pm Bilateral edema of lower extremity chronic December 26, 2024 2:25pm DVT (deep venous thrombosis) chronic December 26, 2024 2:25pm Hypertension chronic December 26, 025 2:25pm Left ventricular systolic dysfunction (LVSD), NYHA class 2 chronic December 26, 2024 2:25pm [facility] Work Phone: [phone]) 784-674106-17-2025 Evaluation note* Diagnosis Onset Date Resolution Status [...] March 26, 2025 2:54pm Atrial fibrillation chronic Septe mber 2024 12:54pm Bilateral edema of lower extremity chronic March 28, 2025 12:54pm DVT (deep venous thrombosis) chronic March 28, 2025 12:54pm Hypertension chronic March 282024 12:54pm Left ventricular systolic dysfunction (LVSD), NYHA class 2 chronic March 28, 2025 12:54pm Morbid obesity with BMI of 40.0-44.9, adult chronic March 28, 2025 12:54pm [email or web address] [facility] Work Phone: 1(118) 507-306406-17-2025 Progress [facility] [address] [place] [address]. [address] [place] [address] OFFICE VISIT Date of Service: 12/26/24 MR#: [id number] Acct: [id number] Name: YOSEF JENNINGS Rep #: [id number] : 1940 Provider: Dr. Himanshu Locke MD Age/Sex: 84/F [place] [facility] [place] Status: Signed HPI HPI History of Present [...] 75 mg tablet 75 mg PO DAILY 07/14/23/03/05 History apixaban 5 mg tablet (Eliquis) 5 [...] Cardiac Ejection fraction %: 35 12/26/24 1512 > Date _ [facility]: Date (if applicable) CC: Dr. Dago Smith MD ~ [facility]06-17-2025 Progress note Author Chele Locke [facility] Note Date/Time December 26, 2024 3:12 pm [facility] [address] [place] [address] OFFICE VISIT Date of Service: 12/26/24 MR#: [id number] Acct: [id number] Name: YOSEF JENNINGS Rep #: [id number] : 1940 Provider: Dr. Himanshu Locke MD Age/Sex: 84/F [place] [facility] [place] Status: Signed HPI HPI History of Present [...] 75 mcg PO DAILY #60 tabs 1 0/23/24 05/08/25 Rx metoprolol succinate 100 mg 100 mg [...] applicable) CC: Dr. Dago Smith MD ~ [facility] Work Phone: 1(644) 641-937704-15-2025 Evaluation note* Diagnosis Onset Date Resolution Status Admit Date Atrial fibrillation chronic October 24, 2024 2:31pm Bilateral edema of lower extremity chronic October 24, 2024 2:31pm DVT (deep venous thrombosis) chronic October 24, 2024 2:31pm Hypertension chronic October 24, 2024 2:31pm [facility] Work Phone: 1(340) 978-477704-15-2025 Evaluation note* Diagnosis Onset Date Resolution Status [...] class 2 chronic December 26, 2024 2:25pm [facility] Work Phone: 1(739) 825-867604-20-2023 Progress note Author Vinay Weiss [facility] October 29, 2022 12:36pm Note Date/Time October 29, 2022 8:1 5am [facility] [address] [place] [address] Progress Note - Wound Care 10/29/22 0815 MR#: [id number] Acct: [id number] Name: YOSEF JENNINGS Rep #:[id number] : 1940 82 From: Vinay zimmerman DPM [...] did fall recently and went to the [facility] ED for stitches in the right [...] Recorded Date Recorded By Document 10/22/22 08:23 [facility] [id number] 10/22/22 08:37 [facility] 10/22/22 08:23 WC - Today's Visit Information Type of service 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 ) Arrival Mode Ambulatory Transfer Assistance None [...] Recorded Date Recorded By Document 10/22/22 08:23 [facility] [id number] 10/22/22 08:37 [facility] 10/22/22 08:23 Wound Center Nurse 1 #1 [...] Date Recorded By Document 10/22/22 09:15 PL [id number] 10/23/22 07:12 PL 10/22/22 09:15 Wound Center [...] Disc -Expiration Date 08/12/27 -Product Lot Number [id number] -Percent Used 100 -Bleeding Controlled with [...] Recorded Date Recorded By Document 10/22/22 09:31 [id number] 10/22/22 09:32 10/22/22 09:31 Wound Care Center Nurse 3 #1 Left medial ankle -Ulcer Cleansing Rinsed/ Irrigated with Saline -Foul Odor after Cleansing No -Primary Dressing Covered/Secured with Dry Gauze & Roll Gauze, Secured with Tape Left -Tubular Bandage Single Layer -Size of Tubigrip Used Size D -Size D ($) 1 Pain Scale: 0-10 Numeric Is Patient Pain Free? Yes - Visit Discharge Discharge Condition Stable Ambulatory [...] No signs of infection Pain: May take feyt-gyq-rfhvjxg Tylenol for discomfort Host factors: Chronic venous [...] Cosigner Signature (if applicable): CC: ~ Signed [facility] Work Phone: [phone]) 176-205004-13-2023 Progress note Author Vinay Weiss [facility] October 22, 2022 12:46pm Note Date/Time October 22, 2022 8:4 3am [facility] [address] [place] [address] Progress Note - Wound Care 10/22/22 0836 MR#: [id number] Acct: [id number] Name: YOSEF JENNINGS Rep #:[id number] : 1940 82 From: Vinay zimmerman DPM [...] did fall recently and went to the [facility] ED for stitches in the right [...] No signs of infection Pain: May take diuk-gqx-akmleaq Tylenol for discomfort Host factors: Chronic venous stasis with palpable varicosities to the lower extremity and foot, edema. ? I answered all the patient's questions.? To return to the wound healing center in 1 week or call sooner if the patient has any questions or concerns. 10/22/22 1246 <Electronically signed by Vinay Weiss DPM> Cosigner Signature (if applicable): CC: ~ Signed [facility] Work Phone: 1(107) 235-692403-30-2023 Progress note Author Vinay Weiss [facility] October 08, 2022 8:58am Note Date/Time October 08, 2022 8:2 2am [facility] [address] [place] [address] Progress Note - Wound Care 10/08/22 0822 MR#: [id number] Acct: [id number] Name: YOSEF JENNINGS Rep #:[id number] : 1940 82 From: Vinay zimmerman DPM [...] did fall recently and went to the [facility] ED for stitches in the right [...] Date Recorded By Document 09/10/22 08:55 ML [id number] 09/10/22 09:01 ML Document 09/17/22 08:29 AK [id number] 09/17/22 08:35 AK Document 09/24/22 08:23 AK [id number] 09/24/22 08:25 AK Document 10/01/22 08:20 Desktop 10/01/22 08:22 09/10/22 09/17/22 09/24/22 08:55 08:29 08:23 - Today's Visit Information Type of service Follow-up Visit Follow-up Visit 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 (Physician/REHEAT FURNACE OPERATOR (Physician/REHEAT FURNACE OPERATOR ) ) ) Arrival Mode Ambulatory Ambulatory [...] Visit Information Type of service 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 ) Arrival Mode Ambulatory Transfer Assistance Patient [...] Date Recorded By Document 09/10/22 08:55 ML [id number] 09/10/22 09:01 ML Document 09/17/22 08:29 AK [id number] 09/17/22 08:35 AK Document 09/24/22 08:23 AK [id number] 09/24/22 08:25 AK Document 10/01/22 08:20 JF [...] Present (0 Large (67-100%) %) -Granulation Quality [place],Red [place] -Slough/Fibrin No No Yes -Necrosis Amt None [...] 39 37 Left Ankle (cm) 26 26 10/01/ 08:20 Wound Center Nurse 1 #2 Left [...] Date Recorded By Document 09/10/22 11:26 PL [id number] 09/10/22 11:29 PL Document 09/17/22 11:34 PL [id number] 09/17/22 11:36 PL Document 09/24/22 11:36 PL [id number] 09/24/22 11:37 PL Document 10/01/22 13:21 PL [id number] 10/01/22 13:23 PL 09/10/22 09/17/22 09/24/22 11:26 [...] Date 06/11/27 06/11/27 07/12/27 -Product Lot Number [id number] 007 004 -Percent Used 100 100 [...] Disc -Expiration Date 07/12/27 -Product Lot Number [id number] -Percent Used 100 -Bleeding Controlled with [...] Date Recorded By Document 09/10/22 09:17 ML [id number] 09/10/22 09:20 ML Document 09/17/22 09:27 RB [id number] 09/17/22 09:29 RB Document 10/01/22 08:39 JF [id number] 10/01/22 08:40 JF 09/10/22 09/17/22 10/01/22 09:17 [...] No signs of infection Pain: May take xmif-foc-focvlpm Tylenol for discomfort Host factors: Chronic venous stasis with palpable varicosities to the lower extremity and foot, edema. ? I answered all the patient's questions.? To return to the wound healing center in 1 week or call sooner if the patient has any questions or concerns. 10/08/22 0858 <Electronically signed by Vinay Weiss DPM> Cosigner Signature (if applicable): CC: ~ Signed [facility] Work Phone: 1(240) 587-180903-23-2023 Progress note Author Vinay Weiss [facility] October 01, 2022 9:02am Note Date/Time October 01, 2022 8:2 0am [facility] [address] [place] [address] Progress Note - Wound Care 10/01/22 0819 MR#: [id number] Acct: [id number] Name: YOSEF JENNINGS Rep #:[id number] : 1940 82 From: Vinay zimmerman DPM [...] did fall recently and went to the [facility] ED for stitches in the right [...] Date Recorded By Document 09/10/22 08:55 ML [id number] 09/10/22 09:01 ML Document 09/17/22 08:29 AK [id number] 09/17/22 08:35 AK Document 09/24/22 08:23 AK [id number] 09/24/22 08:25 AK 09/10/22 09/17/22 09/24/22 08:55 08:29 08:23 - Today's Visit Information Type of service Follow-up Visit Follow-up Visit 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 (Physician/REHEAT FURNACE OPERATOR (Physician/REHEAT FURNACE OPERATOR ) ) ) Arrival Mode Ambulatory Ambulatory [...] Date Recorded By Document 09/10/22 08:55 ML [id number] 09/10/22 09:01 ML Document 09/17/22 08:29 AK [id number] 09/17/22 08:35 AK Document 09/24/22 08:23 AK [id number] 09/24/22 08:25 AK 09/10/22 09/17/22 09/24/22 08:55 [...] Present (0 Large (67-100%) %) -Granulation Quality [place],Red [place] -Slough/Fibrin No No Yes -Necrosis Amt None [...] Date Recorded By Document 09/10/22 11:26 PL [id number] 09/10/22 11:29 PL Document 09/17/22 11:34 PL [id number] 09/17/22 11:36 PL Document 09/24/22 11:36 PL [id number] 09/24/22 11:37 PL 09/10/22 09/17/22 09/24/22 11:26 [...] Date 06/11/27 06/11/27 07/12/27 -Product Lot Number [id number] 007 004 -Percent Used 100 100 [...] Date Recorded By Document 09/10/22 09:17 ML [id number] 09/10/22 09:20 ML Document 09/17/22 09:27 RB [id number] 09/17/22 09:29 RB 09/10/22 09/17/22 09:17 09:27 [...] No signs of infection Pain: May take txau-fwc-hpvztig Tylenol for discomfort Host factors: Chronic venous stasis with palpable varicosities to the lower extremity and foot, edema. ? I answered all the patient's questions.? To return to the wound healing center in 1 week or call sooner if the patient has any questions or concerns. 10/01/22901 <Electronically signed by Vinay Weiss DPM> Cosigner Signature (if applicable): CC: ~ Signed [facility] Work Phone: 1(890) 144-879103-16-2023 Progress note Author Vinay Weiss [facility] September 24, 2022 8:51am Note Date/Time September 24, 2022 8:1 4am [facility] [address] [place] [address] Progress Note - Wound Care 09/24/2214 MR#: [id number] Acct: [id number] Name: YOSEF JENNINGS Rep #:[id number] : 1940 82 From: Vinay zimmerman DPM [...] did fall recently and went to the [facility] ED for stitches in the right [...] Date Recorded By Document 09/10/22 08:55 ML [id number] 09/10/22 09:01 ML Document 09/17/22 08:29 AK [id number] 09/17/22 08:35 AK 09/10/22 09/17/22 08:55 08:29 - Today's Visit Information Type of service Follow-up Visit 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 (Physician/REHEAT FURNACE OPERATOR ) ) Arrival Mode Ambulatory Ambulatory Transfer [...] Date Recorded By Document 09/10/22 08:55 ML [id number] 09/10/22 09:01 ML Document 09/17/22 08:29 AK [id number] 09/17/22 08:35 AK 09/10/22 09/17/22 08:55 08:29 [...] (1-33%) None Present (0 %) -Granulation Quality [place],Red -Slough/Fibrin No No -Necrosis Amt None Present [...] Date Recorded By Document 09/10/22 11:26 PL [id number] 09/10/22 11:29 PL Document 03/09/23 11:34 PL [id number] 09/17/22 11:36 PL 09/10/22 09/17/22 11:26 11:34 [...] -Expiration Date 06/11/27 06/11/27 -Product Lot Number [id number] -Percent Used 100 100 -Bleeding [...] Date Recorded By Document 09/10/22 09:17 ML [id number] 09/10/22 09:20 ML Document 09/17/22 09:27 RB [id number] 09/17/22 09:29 RB 09/10/22 09/17/22 09:17 09:27 [...] No signs of infection Pain: May take nfxw-pfh-peyvuue Tylenol for discomfort Host factors: Chronic venous stasis with palpable varicosities to the lower extremity and foot, edema. ? I answered all the patient's questions.? To return to the wound healing center in 1 week or call sooner if the patient has any questions or concerns. 09/24/22 0851 <Electronically signed by Vinay Weiss DPM> Cosigner Signature (if applicable): CC: ~ Signed [facility] Work Phone: 1(505) 459-382603-09-2023 Progress note Author Vinay Weiss [facility] September 17, 2022 10:26am Note Date/Time September 17, 2022 9:26 am [facility] [address] [place] [address] Progress Note - Wound Care 09/17/22921 MR#: [id number] Acct: [id number] Name: YOSEF JENNINGS Rep #:[id number] : 1940 82 From: Vinay zimmerman DPM PCP: Dr. Dago Smith MD Status:R EG R Location: History of Present Illness Date of [...] did fall recently and went to the [facility] ED for stitches in the right [...] Date Recorded By Document 09/10/22 08:55 ML [id number] 09/10/22 09:01 ML Document 09/17/22 08:29 AK [id number] 09/17/22 08:35 AK 09/10/22 09/17/22 08:55 08:29 - Today's Visit Information Type of service Follow-up Visit 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 (Physician/REHEAT FURNACE OPERATOR ) ) Arrival Mode Ambulatory Ambulatory Transfer [...] Date Recorded By Document 09/10/22 08:55 ML [id number] 09/10/22 09:01 ML Document 09/17/22 08:29 AK [id number] 09/17/22 08:35 AK 09/10/22 09/17/22 08:55 08:29 [...] (1-33%) None Present (0 %) -Granulation Quality [place],Red -Slough/Fibrin No No -Necrosis Amt None Present [...] Date Recorded By Document 09/10/22 11:26 PL [id number] 09/10/22 11:29 PL 09/10/22 11:26 Wound Center [...] Disc -Expiration Date 06/11/27 -Product Lot Number [id number] -Percent Used 100 -Bleeding Controlled with [...] Date Recorded By Document 09/10/22 09:17 ML [id number] 09/10/22 09:20 ML 09/10/22 09:17 Wound Care [...] No signs of infection Pain: May take oejd-wqz-pgyukxs Tylenol for discomfort Host factors: Chronic venous stasis with palpable varicosities to the lower extremity and foot, edema. ? I answered all the patient's questions.? To return to the wound healing center in 1 week or call sooner if the patient has any questions or concerns. 09/17/22 1026 <Electronically signed by Vinay Weiss DPM> Cosigner Signature (if applicable): CC: ~ Signed [facility] Work Phone: 1(734) 155-850503-02-2023 Progress note Author Vinay Weiss [facility] September 10, 2022 9:20am Note Date/Time September 10, 2022 8:59 am [facility] [address] [place] [address] Progress Note - Wound Care 09/10/22 0856 MR#: [id number] Acct: [id number] Name: YOSEF JENNINGS Rep #:[id number] : 1940 82 From: Vinay zimmerman DPM [...] did fall recently and went to the [facility] ED for stitches in the right [...] No signs of infection Pain: May take jkpu-dsv-nrfzmba Tylenol for discomfort Host factors: Chronic venous stasis with palpable varicosities to the lower extremity and foot, edema. ? I answered all the patient's questions.? To return to the wound healing center in 1 week or call sooner if the patient has any questions or concerns. 09/10/22919 <Electronically signed by Vinay Weiss DPM> Cosigner Signature (if applicable): CC: ~ Signed [facility] Work Phone: 1(166) 891-613502-23-2023 Progress note Author Vinay Weiss [facility] September 03, 2022 9:59pm Note Date/Time September 03, 2022 8:29am [facility] [address] [place] [address] Progress Note - Wound Care 09/03/22 0829 MR#: [id number] Acct: [id number] Name: YOSEF JENNINGS Rep #:[id number] : 1940 82 From: Vinay zimmerman DPM [...] did fall recently and went to the [facility] ED for stitches in the right [...] Date Recorded By Document 08/13/22 08:20 AK [id number] 08/13/22 08:26 AK Document 08/20/22 08:26 JF [id number] 08/20/22 08:32 JF Document 08/27/22 08:51 AK [id number] 08/27/22 08:54 AK 08/13/22 08/20/22 08/27/22 08:20 08:26 08:51 WC - Today's Visit Information Type of service Initial Visit Follow-up Visit 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 (Physician/REHEAT FURNACE OPERATOR ) ) Arrival Mode Ambulatory Ambulatory Ambulatory [...] Date Recorded By Document 08/13/22 08:20 AK [id number] 08/13/22 08:26 AK Document 08/20/22 08:26 JF [id number] 08/20/22 08:32 JF Document 08/27/22 08:51 AK [id number] 08/27/22 08:54 AK 08/13/22 08/20/22 08/27/22 08:20 [...] (34-66%) Medium (34-66%) Medium (34-66%) -Granulation Quality [place] Red [place] -Slough/Fibrin Yes Yes Yes -Necrosis Amt Medium [...] (34-66%) Medium (34-66%) Medium (34-66%) -Granulation Quality [place],Red Red [place] -Slough/Fibrin Yes Yes Yes -Necrosis Amt Medium [...] 36.8 37 Left Ankle (cm) 26.7 26 - Nurse 2 - General Ulcer CM Notes Start: 08/13/22 08:18 Freq: Status: Active Protocol: Activity Type Activity Date Activity User E-sign Co-sign Detail Recorded Client Recorded Date Recorded By Document 08/13/22 11:38 PL [id number] 08/13/22 11:41 PL Document 08/20/22 11:53 PL [id number] 08/20/22 11:54 PL Document 08/27/22 11:50 PL [id number] 08/27/22 11:51 PL 08/13/22 08/20/22 08/27/22 11:38 [...] Recorded Date Recorded By Document 08/20/22 09:10 [id number] 08/20/22 09:11 Document 08/27/22 09:18 [id number] 08/27/22 09:19 08/20/22 08/27/22 09:10 09:18 Wound [...] No signs of infection Pain: May take cuti-jwl-xwkjszh Tylenol for discomfort Host factors: Chronic venous stasis with palpable varicosities to the lower extremity and foot, edema. I answered all the patient's questions. To return to the wound healing center in 1 week or call sooner if the patient has any questions or concerns. Note: [employer] speech recognition cost consultant software was used to create portions of this document. Sound-alike and misspelled words, as well as other cost consultant errors may be contained in the documentation. 09/03/222158 <Electronically signed by Vinay Weiss DPM> Cosigner Signature (if applicable): CC: ~ Signed [facility] Work Phone: [phone] [id number] Progress note Author Vinay Weiss [facility] August 27, 2022 9:19am Note Date/Time August 27, 2022 8:28am [facility] [address] [place] [address] Progress Note - Wound Care 08/27/2228 MR#: [id number] Acct: [id number] Name: YOSEF JENNINGS Rep #:[id number] : 1940 82 From: Vinay zimmerman DPM [...] did fall recently and went to the [facility] ED for stitches in the right [...] Recorded Date Recorded By Document 08/13/22 08:20 NE [id number] 08/13/22 08:26 AK Document 08/20/22 08:26 JF [id number] 08/20/22 08:32 JF 08/13/22 08/20/22 08:20 08:26 - Today's Visit Information Type of service Initial Visit 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 ) Arrival Mode Ambulatory Ambulatory Patient Identification [...] Date Recorded By Document 08/13/22 08:20 AK [id number] 08/13/22 08:26 NE Document 08/20/22 08:26 CICI [id number] 08/20/22 08:32 JF 08/13/22 08/20/22 08:20 08:26 [...] Amt Medium (34-66%) Medium (34-66%) -Granulation Quality [place] Red -Slough/Fibrin Yes Yes -Necrosis Amt Medium [...] Amt Medium (34-66%) Medium (34-66%) -Granulation Quality [place],Red Red -Slough/Fibrin Yes Yes -Necrosis Amt Medium [...] Date Recorded By Document 08/13/22 11:38 PL [id number] 08/13/22 11:41 PL Document 08/20/22 11:53 PL [id number] 08/20/22 11:54 PL 08/13/22 08/20/22 11:38 11:53 [...] Date Recorded By Document 08/20/22 09:10 CICI [id number] 08/20/22 09:11 CICI 08/20/22 09:10 Wound Care [...] No signs of infection Pain: May take ontl-xel-tdvpqul Tylenol for discomfort Host factors: Chronic venous stasis with palpable varicosities to the lower extremity and foot, edema. I answered all the patient's questions. To return to the wound healing center in 1 week or call sooner if the patient has any questions or concerns. Note: [employer] speech recognition cost consultant software was used to create portions of this document. Sound-alike and misspelled words, as well as other cost consultant errors may be contained in the documentation. 08/27/22918 <Electronically signed by Vinay Weiss DPM> Cosigner Signature (if applicable): CC: ~ Signed [facility] Work Phone: 1(186) 932-697102-09-2023 Progress note Author Vinay Weiss [facility] August 20, 2022 9:46am Note Date/Time August 20, 2022 8 :56am [facility] [address] [place] [address] Progress Note - Wound Care 08/20/22 0856 MR#: [id number] Acct: [id number] Name: YOSEF JENNINGS Rep #:[id number] : 1940 81 From: Vinay zimmerman DPM [...] did fall recently and went to the [facility] ED for stitches in the right [...] vein is patent and incompetent. 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 Ordering Physician: Vinay Weiss Referring Physician: Dago Smith Performed By: Al Castro RVT Physical [...] Start: 08/13/22 08:18 Freq: Status: Active Protocol: JULIOEXThelma Activity Type Activity Date Activity User E-sign Co-sign Detail Recorded Client Recorded Date Recorded By Document 08/13/22 08:20 AK [id number] 08/13/22 08:26 AK Document 08/20/22 08:26 CICI [id number] 08/20/22 08:32 CICI 08/13/22 08/20/22 08:20 08:26 - Today's Visit Information Type of service Initial Visit 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 ) Arrival Mode Ambulatory Ambulatory Patient Identification [...] Date Recorded By Document 08/13/22 08:20 AK [id number] 08/13/22 08:26 AK Document 08/20/22 08:26 JF [id number] 08/20/22 08:32 JF 08/13/22 08/20/22 08:20 08:26 [...] Amt Medium (34-66%) Medium (34-66%) -Granulation Quality [place] Red -Slough/Fibrin Yes Yes -Necrosis Amt Medium [...] Amt Medium (34-66%) Medium (34-66%) -Granulation Quality [place],Red Red -Slough/Fibrin Yes Yes -Necrosis Amt Medium [...] Date Recorded By Document 08/13/22 11:38 PL [id number] 08/13/22 11:41 PL 08/13/22 11:38 Wound Center [...] No signs of infection Pain: May take gqhn-gvm-ngdcpcm Tylenol for discomfort Host factors: Chronic venous stasis with palpable varicosities to the lower extremity and foot, edema. I answered all the patient's questions. To return to the wound healing center in 1 week or call sooner if the patient has any questions or concerns. Note: [employer] speech recognition cost consultant software was used to create portions of this document. Sound-alike and misspelled words, as well as other cost consultant errors may be contained in the documentation. 08/20/22 0946 <Electronically signed by Vinay Weiss DPM> Cosigner Signature (if applicable): CC: ~ Signed [facility] Work Phone: 1(990) 996-859002-08-[address] Hoffmann [facility] August 19, 2022 10:49pm Note Date/Time August 19, 2022 1 0:42pm [facility] Medical Records Department [address] [place] [address] Emergency Department Summary 08/19/22 MR#: [id number] Acct: [id number] Name: YOSEF JENNINGS Rep #:[id number] : 1940 81 From: Inderjit Hoffmann DO [...] your Primary Care Provider. Call [facility] ([phone]) or report to the closest Emergency Room. Call 911 if necessary. 08/19/22 2249 <Electronically signed by Inderjit Hoffmann DO> Cosigner Signature (if applicable): CC: Dr. Dago Smith MD ~ Signed [facility] Work Phone: 1(413) 601-809802-02-2023 History and physical note Author Vinay Weiss [facility] August 13, 2022 9:36am Note Date/Time August 13, 2022 9 :22am [facility] [address] [place] [address] H&P Exam - Wound Care 08/13/22 0905 MR#: [id number] Acct: [id number] Name: YOSEF JENNINGS Rep #:[id number] : 1940 81 From: Vinay zimmerman DPM [...] did fall recently and went to the [facility] ED for stitches in the right [...] are swollen and the ulcerative sites ache. [facility] Medical History Arthritis Cellulitis of left ankle [...] Date Recorded By Document 08/13/22 08:20 ADOLFO [id number] 08/13/22 08:26 ADOLFO 08/13/22 08:20 WC - Today's Visit Information [...] Date Recorded By Document 08/13/22 08:20 ADOLFO [id number] 08/13/22 08:26 AK 08/13/22 08:20 Wound Center [...] Attached -Granulation Amt Medium (34-66%) -Granulation Quality [place] -Slough/Fibrin Yes -Necrosis Amt Medium (34-66%) -Necrotic [...] Attached -Granulation Amt Medium (34-66%) -Granulation Quality [place],Red -Slough/Fibrin Yes -Necrosis Amt Medium (34-66%) -Necrotic [...] No signs of infection Pain: May take dpqc-tuh-wexqbov Tylenol for discomfort Host factors: Chronic venous stasis with palpable varicosities to the lower extremity and foot, edema. I answered all the patient's questions. To return to the wound healing center in 1 week or call sooner if the patient has any questions or concerns. Note: [employer] speech recognition cost consultant software was used to create portions of this document. Sound-alike and misspelled words, as well as other cost consultant errors may be contained in the documentation. [...] Cosigner Signature (if applicable): CC: ~ Signed [facility] Work Phone: 1(730) 651-497801-31-[address] Walden [facility] August 11, 2022 11:03pm Note Date/Time August 11, 2022 1 1:00pm [facility] Medical Records Department [address] [place] [address] Emergency Department Summary 08/11/22 MR#: [id number] Acct: [id number] Name: YOSEF JENNINGS Rep #:[id number] : 1940 81 From: Shilo Walden MD [...] Funtion Narrative Narrative: Patient is an 81-year-old rrzvg-xmdp-rvsyuutb woman who was entering the building for [...] problems, contact your Primary Care Provider. Call [facility] ([phone]) or report to the closest Emergency Room. Call 911 if necessary. 08/11/22 2303 <Electronically signed by Shilo Walden MD> Cosigner Signature (if applicable): CC: Dr. Dago Smith MD ~ Signed [facility] Work Phone: [phone]) 686-380601-31-2023 Hospital Discharge instructions Additional Instructions 1. Keep finger clean and dry. 2. Take antibiotic until gone 3. Sutures to be removed in 10 to 14 days.[facility] Work Phone: Discharge summary Author Michael Sánchez [facility] July 31, 2022 3:25am Note Date/Time July 31, 2022 3 :14am [facility] Medical Records Department [address] [place] [address] Emergency Department Summary 07/31/22 MR#: [id number] Acct: [id number] Name: YOSEF JENNINGS Rep #:[id number] : 1940 81 From: Michael Sánchez DO [...] concern for recurrent infection presents for evaluation [facility] Medical History (Updated 07/31/22 @ 03:25 by [...] % (Auto) 58.3 Lymph % (Auto) 28.9 [place] % (Auto) 10.2 H Eos % (Auto) [...] soft tissue swelling suggesting edema. Electronically Signed: Danet Solorzano MD at 3:02 EST Reading Location ID and State: [facility] / [place] Tel , Service support , X-ray of [...] Care Referral (Routine) Timeframe: 1 Week Facility: [facility] - Location: Wound Healing Center Ordered By: Dr. Michael Sánchez Primary Care Provider: Dago Smith Referrals: Dago Smith MD [Primary Care Provider] - Vinay Weiss DPM [Med Staff - Active Staff] - Activity Restrictions/Additional Instructions: Please contact Dr. Weiss/podiatry to discuss further treatment options for your venous stasis ulcer. You have also been given a referral for [facility]. Please continue to wrap the wound as shown in the ER [facility] Disposition Disposition: Home, Self Care What to do if you have Problems For any increased pain, shortness of breath, bleeding, nausea or vomiting, chestpain, or any unexpected problems, contact your Primary Care Provider. Call [facility] ([phone]) or report to the closest Emergency Room. Call 911 if necessary. 07/31/22 0325 <Electronically signed by Michael Sánchez DO> Cosigner Signature (if applicable): CC: Dr. Dago Smith MD ~ Signed [facility] Work Phone: Discharge summary Author Bharath Mercer [facility] October 03, 2023 11:09am Note Date/Time October 03, 2023 9:3 5am [facility] Medical Records Department [address] [place] [address] Emergency Department Summary 10/03/23 MR#: [id number] Acct: [id number] Name: YOSEF JENNINGS Rep #:[id number] : 1940 83 From: Bharath Mercer MD [...] bleeding recently fromanywhere. 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 [facility] Medical History Arrhythmia Arthritis Atrial fibrillation Bilateral [...] problems, contact your Primary Care Provider. Call [facility] ([phone]) or report to the closest Emergency Room. Call 911 if necessary. 10/03/23 1109 <Electronically signed by Bharath Mercer MD> Cosigner Signature (if applicable): CC: Dr. 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 Venous insufficiency (chronic) (peripheral) [facility] Work Phone: Evaluation note* Diagnosis Onset Date Resolution Status Cellulitis of left ankle acu te Arrhythmia acute Encounter for removal of sutures acute Laceration of right middle f nikolay with foreign body w/o damage to nail acute Bilateral edema of lower extremity acute 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 Venous insufficiency (chronic) (peripheral) [facility] Work Phone: Evaluation note* Diagnosis Onset Date Resolution Status Arrhythmia acute Encounter for removal of sutures acute Laceration of right middle f nikolay with foreign body w/o damage to nail acute Bilateral edema of lower extremity acute 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 Venous insufficiency (chronic) (peripheral) [facility] Work Phone: Evaluation note* Diagnosis Onset [...] layer exposed chronic Venous insufficiency (chronic) (peripheral) [facility] Work Phone: Evaluation note* Diagnosis Onset [...] layer exposed chronic Venous insufficiency (chronic) (peripheral) [facility] Work Phone: Evaluation note* Diagnosis Onset [...] chronic DVT (deep venous thrombosis) chronic Hypertension [facility] Work Phone: Evaluation note* Diagnosis Onset Date Resolution Status COVID-19 acute Atrial fibrillation chronic Hypertension chronic Hypothyroidism [facility] Work Phone: Evaluation note* Diagnosis Onset Date Resolution Status COVID-19 acute Atrial fibrillation chronic Hypertension chronic Hypothyroidism chronic Atrial fibrillation chronic Bilateral edema of lower extremity chronic DVT (deep venous thrombosis) chronic Hypertension [facility] Work Phone: Hospital Discharge instructions Additional Instructions Please contact Dr. Weiss/podiatry to discuss further treatment options for your venous stasis ulcer. You have also been given a referral for [place] [facility]. Please continue to wrap the wound as shown in the ER and return to the ER should [facility] have [facility] Work Phone: Reason for referral (narrative)No reason for referral information available[facility] Work Phone: Chief Complaint and Reason [...] ANKLE WOUND/INF ECTION X-Rays wound FALL DVT [facility] FU - SUTURE REMOVAL Cardiac arrhythmia, unspecified Cardiac arrhythmia, unspecified NON HEALING WOUND Reason for Visit Cellulitis of left a nkle Arrhythmia Encounter for removal of sutures Laceration of right middle finger with foreign body w/o damage to nail Bilateral edema of lower extremity Non-pressure chronic ulcer of left calf with fat layer exposed Venous insufficiency (chronic) (peripheral) Chief Complaint wound FALL DVT [facility] FU - SUTURE REMOVAL Cardiac arrhythmia, unspecified Cardiac arrhythmia, unspecified NON HEALING WOUND Reason for Visit Arrhythmia Encounter for removal of sutures Laceration of right middle finger with foreign body w/o damage to nail Bilateral edema of lower extremity Non-pressure chronic ulcer of left calf with fat layer exposed Venous insufficiency (chronic) (peripheral) Chief Complaint wound FALL DVT [facility] FU - SUTURE REMOVAL Cardiac arrhythmia, unspecified [...] (chronic) (peripheral) Chief Complaint wound FALL DVT [facility] FU - SUTURE REMOVAL Cardiac arrhythmia, unspecified [...] (chronic) (peripheral) Chief Complaint wound FALL DVT [facility] FU - SUTURE REMOVAL Cardiac arrhythmia, unspecified [...] Hypothyroidism Chief Complaint HEAD CONGESTION/COUG H COVID TEST/[facility] EMPLOY follow up 6 M FU E ORDERS Reason for Visit COVID-19 Atrial fibrillation Hypertension Hypothyroidism Atrial fibrillation Bilateral edema of lower extremity DVT (deep venous thrombosis) Hypertension Chief Complaint HEAD CONGESTION/COUG H COVID TEST/[facility] EMPLOY follow up 6 M FU E [...] 12:54pm Bilateral edema of lower extremity Septe [facility] 2024 12:54pm DVT (deep venous thrombosis) March 122024 12:54pm Hypertension March 28, 2025 12:54pm Left ventricular systolic dy sfunction (LVSD), NYHA class 2 March 28, 2025 12:54pm Morbid obesity with BMI of 40.0-44.9, ad ult March 28, 2025 12:54pm Chief Complaint Admit Date Localized edema December 18, 2024 9:54a m 4 WK FU December 26, 2024 2:25 pm E-ORDER February 07, 2025 4:11 pm LVSD NYHA CLASS 2 February 26, 2025 7: 06am LVSD NYHA CLASS 2 February 26, 2025 6: 24pm 3 mo pessary cleaning March 26 2:54pm 3 M FU March 28, 2025 12:54pm Blood pressure check April 06 2:53pm INT LAB ORDERS April 06, 2025 3:39pm Family History No Family History Records Found Relationship Condition Age at Onset Recorded Date/T reva Not Specified Cardiac disease Unknown brother Malignant neoplasm Unknown sister Malignant neoplasm Unknown Advance Directives No Advanced Directives Records Found Advance Directive Response Recorded Date/ Time Living Will No July 31 1:46am Power of Torpedo Shooter No July 31, 2022 1:46am Advance Directive Response Recorded Date/ Time Living Will No August 11 7:28pm Power of Torpedo Shooter No August 11, 2022 7:28pm Advance Directive Response Recorded Date/ Time Living Will No August 19 7:28pm Power of Torpedo Shooter No August 19, 2022 7:28pm Advance Directive Response Recorded Date/ Time Living Will No August 19 8:28pm Power of Torpedo Shooter No August 19, 2022 8:28pm Advance Directive Response Recorded Date/ Time Living Will No October 03, 2023 9:37am Power of Torpedo Shooter No October 02 9:37am Summary Purpose Additional [...] Status: Inactive Member Role/Relationship Status Dates Dr. Daog Smith MD Primary care physician Activ e Start: March 28, 2025 End: March 28, 2025 Dr. Dago Smith MD Referring Provider Active Start: March 28, 2025 End: March 28, 2025 Dr. Chele Locke MD Attending physician Active Start: March 28, 2025 End: March 28, 2025 Team Status: Inactive Member Role/Relationship Status Dates Dr. Dago Smith MD Primary care physician Activ e Start: April 06, 2025 End: April 06, 2025 Dr. Dago Smith MD Referring Provider Active Start: April 06, 2025 End: April 06, 2025 Dr. Chele Locke MD Attending physician Active Start: April 06, 2025 End: April 06, 2025 Team Status: Active Member Role/Relationship Status Dates Dr. Dago Smith MD Primary care physician Activ e Start: April 06, 2025 Dr. Chele Locke MD Attending physician Active Start: April 06, 2025 Dr. Chele Locke MD Referring Provider Active Start: April 06, 2025 Team Status: Inactive Member Role/Relationship Status Dates Dr. aDgo Smith MD Primary care physician Activ e Start: April 06, 2025 End: April 06, 2025 Dr. Chele Locke MD Attending physician Active Start: April 06, 2025 End: April 06, 2025 Dr. Chele Locke MD Referring Provider Active Start: April 06, 2025 End: April 06, 2025 Goals (unrecognized section and content) Goals [...] ized section and content) DATE CREATED AUTHOR 05/12/2025 [facility] FOR RECORDS PERTAINING TO PATIENTS WHO [...] BE BASED ON THE PRIMARY CLINICAL RECORDS. [facility] [employer] [facility]. provides no warranty or guarantee of the accuracy or completeness of information in this document.
[2025-07-05 14:49] VITALS: BP 163/81; PULSE 94; RESP 16; O2SAT 100
[2025-07-05 15:23] VITALS: BP 152/77; PULSE 67; RESP 16; TEMP 36.3; O2SAT 100
--- NOTE | 2025-07-05 16:44 | ED.VIS.FALL ---
HPI HPI - Fall History of Present Illness Chief Complaint: Fall Narrative Narrative: Patient is a 84-year-old female presenting to the emergency department after mechanical fall. She states that she set a bag down and then went to pick it up and tripped on it causing her to fall and hit the left side of her head. She is on Eliquis. She denies any LOC. She denies any neck or back pain. Denies any headache, lightheadedness, dizziness, numbness or weakness in arms or legs. Denies any hip pain. She reports pain to her left hand, left knee and right shoulder. [facility] Medical History Urinary tract infection Nocturia Mixed incontinence Localized swelling of chest wall COVID-19 Hypothyroidism Elevated TSH DVT (deep venous thrombosis) Atrial fibrillation Encounter for removal of sutures Arrhythmia Non-pressure chronic ulcer of left calf with fat layer exposed Venous insufficiency (chronic) (peripheral) Bilateral edema of lower extremity Laceration of right middle finger with foreign body w/o damage to nail Cellulitis of left ankle Trigger finger Hypertension Carpal tunnel syndrome of right wrist Osteoarthritis of right shoulder Arthritis Hearing loss Contusion of right knee Contusion of right shoulder Unspecified fall, initial encounter Infection of stomach Shoulder pain Home Medications ?Medication ?Instructions ?Recorded ?Last Taken ?Type acetaminophen 650 mg 650 mg PO Q8H PRN fever or pain 12/23/22 Unknown History tablet,extended release (Tylenol 8 Hour) vibegron 75 mg tablet 75 mg PO DAILY 07/14/23 Unknown History furosemide 40 mg tablet 40 mg PO QDAY #90 tabs 04/27/24 Unknown Rx potassium chloride 20 mEq 20 meq PO QDAY #90 tabs 04/27/24 Unknown Rx tablet,extended release metoprolol succinate 100 mg 100 mg PO QDAY #90 tabs 10/24/24 Unknown Rx tablet,extended release 24 hr Handicap Parking Placard #1 ea 12/26/24 Unknown Rx apixaban 5 mg tablet (Eliquis) 5 mg PO BID #60 tabs 03/28/25 Unknown Rx levothyroxine 75 mcg tablet 75 mcg PO DAILY #60 tabs 05/10/25 Unknown Rx losartan 100 mg tablet 100 mg PO DAILY #90 tabs 07/03/25 Unknown Rx Allergy/AdvReac Type Severity Reaction Status Date / Time latex Allergy Mild unknown Verified 07/05/25 12:51 Family History Brother Cancer Sister Cancer Other Heart disease Surgical History History of cataract surgery H/O hysterectomy for benign disease History of partial hysterectomy Social History Smoking Status: Never smoker alcohol intake: current alcohol intake frequency: holidays/special occasions only substance use type: does not use caffeine: Yes Type: coffee Number of servings: 1 what type of physical activity do you participate in: other details: dancing and active job ROS ROS ED ROS Narrative see HPI EXAM Physical Exam Narrative Exam Narrative: Vital signs: Reviewed General: Alert and oriented x 3. No acute distress. Nontoxic HEENT: Head is normocephalic. There is a small hematoma and large abrasion to the left forehead. No cephalhematoma, lacerations or abrasions to the scalp. Sinuses nontender, pupils 2 mm equal round and reactive. Extraocular movements intact. No conjunctival hemorrhage or injection. Nares are patent. No septal hematoma. Oropharynx and throat exams normal. No oropharyngeal trauma. Neck: Supple without lymphadenopathy nontender. No midline cervical spinal tenderness to palpation. No step-offs or deformities. Cardiovascular: Regular rate and rhythm, no murmurs. No rubs or gallops. Normal S1 and S2 Respiratory: Clear to auscultation bilaterally. No wheezes, rales, rhonchi Chest: Chest wall is atraumatic and tender with no crepitus, erythema or ecchymosis. Abdominal: Soft and nontender. Normal bowel sounds. No guarding or rebound. Nonsurgical abdomen Extremities: Hips are stable to palpation. No tenderness to palpation of hips. No midline thoracic or lumbar spinal tenderness to palpation. No step-offs or deformities. There is a small area of ecchymosis to the dorsal portion of the left hand. There is tenderness to palpation of the 1st and 2nd digits with no obvious deformities, bruising, erythema or abrasions. There is tenderness to palpation of the posterior right shoulder with no signs of trauma. There is a small abrasion to the left knee with tenderness to palpation. Otherwise extremities are atraumatic and nontender to palpation with normal active range of motion. Normal sensation. Neurological: Cranial nerves II through XII are grossly intact. Normal strength and sensation. Normal cerebellar function The rest of the physical exam is unremarkable Const Vital Signs: 07/05/25 12:51 07/05/25 14:26 07/05/25 14:49 Temperature 97.4 F L Temperature Source Oral Pulse Rate 50 L 94 Respiratory Rate 14 16 Respiratory Effort Normal Non-Labored Respiratory Depth Normal Respiratory Pattern Normal Blood Pressure 174/95 H 163/81 H Blood Pressure Mean 121 108 Pulse Ox 100 100 Oxygen Delivery Method Room Air Room Air Room Air 07/05/25 15:23 Temperature 97.4 F L Temperature Source Pulse Rate 67 Respiratory Rate 16 Respiratory Effort Respiratory Depth Respiratory Pattern Blood Pressure 152/77 H Blood Pressure Mean 102 Pulse Ox 100 Oxygen Delivery Method MDM MDM MDM Narrative Medical decision making narrative: Patient is an 84-year-old female presenting to the emergency department after mechanical fall. Patient was seen and examined. Vitals are stable. Patient resting in bed comfortably in no acute distress. Patient given Tylenol for analgesia. Given the patient is on oral anticoagulation and has evidence of head trauma I will obtain a CT brain and cervical spine. Obtain x-rays based off the areas of tenderness and abrasions on physical exam. Will update the patient's tetanus here. X-rays were reviewed by myself there is no fracture or dislocation noted. CT of the brain with no acute intracranial abnormality. CT cervical spine with no acute osseous abnormality.Multilevel discogenic degenerative changes along with facet arthropathy and uncovertebral spurring. Severe neural foraminal narrowing noted at left C3-4, bilateral C4-5, and bilateral C5-6. No high-grade spinal canal stenosis. Recommend clinical correlation with neurologic exam and history, if there is radiculopathy or concern for cervical spinal cord compression, MRI of the cervical spine should be performed for further evaluation. X-rays are negative on radiology read as well. I updated the patient and family on the negative workup. Neurologic exam was again repeated in the bilateral upper extremities and she has no numbness or weakness. I recommended that the patient follow-up with spine surgeon Dr. Childers outpatient for the findings incidentally found on CT imaging of the cervical spine. Again her exam was not consistent with cervical spinal cord compression. Patient ambulated to and from the bathroom with no difficulty. I recommended RICE therapy at home for her areas of pain. Patient discharged from the Emergency Department. I do not feel that the patient's evaluation reveals any acute reason for admission at this time. I instructed them to either follow-up with their primary care physician or promptly return to the Emergency Department for reevaluation should symptoms worsen or new symptoms develop. I explained what symptoms would indicate the need to return to the emergency department. Shared decision making was used. The patient voiced understanding of the treatment plan and is agreeable with it. Clinical impression: Mechanical fall Neural foraminal stenosis of cervical spine Contusion of left hand Contusion of left knee Abrasion of face History & Record Review Discussion w/independent historian: Patient and Family Radiography X-Ray: Read by ED Physician and No Fracture Diagnostic Testing: Clinical Impression(s) from Imaging Studies Hand X-Ray 07/05/25 13:50 IMPRESSION: No acute fracture. Chronic deformity noted at the left distal 5th metacarpal head. Scattered osteoarthritis of the hand and wrist, worst at the 1st CMC joint. Reading Location: [facility] Knee X-Ray 07/05/25 13:50 IMPRESSION: DEGENERATIVE OSTEOARTHROSIS. NO ACUTE FINDINGS. Reading Location: [facility] Shoulder X-Ray 07/05/25 13:50 IMPRESSION: No acute fracture or dislocation noted in the right shoulder. Mild osteoarthritis. Reading Location: [facility] Brain CT 07/05/25 14:04 IMPRESSION: No acute intracranial abnormality. Reading Location: [facility] Cervical Spine CT 07/05/25 14:04 IMPRESSION: No acute osseous abnormality. Multilevel discogenic degenerative changes along with facet arthropathy and uncovertebral spurring. Severe neural foraminal narrowing noted at left C3-4, bilateral C4-5, and bilateral C5-6. No high-grade spinal canal stenosis. Recommend clinical correlation with neurologic exam and history, if there is radiculopathy or concern for cervical spinal cord compression, MRI of the cervical spine should be performed for further evaluation. Reading Location: [facility] Discharge Plan Triage Chief Complaint: Fall ED Provider: Lulu Otero Dx/Rx/DC Orders Clinical Impression: Fall, Abrasion of face, Contusion of knee, left, Contusion of hand, left, Neural foraminal stenosis of cervical spine Instructions: ED Hand Contusion, ED Contusion, Lower Extremity, ED Mechanical Fall, ED Fall Prevention Prescriptions: No Action acetaminophen [Tylenol 8 Hour] 650 mg tablet extended release 650 mg PO Q8H PRN (Reason: fever or pain) vibegron 75 mg tablet 75 mg PO DAILY furosemide 40 mg tablet 40 mg PO QDAY Qty: 90 3RF potassium chloride 20 mEq tablet extended release 20 meq PO QDAY Qty: 90 3RF metoprolol succinate 100 mg tablet extended release 24 hr 100 mg PO QDAY Qty: 90 3RF levothyroxine 75 mcg tablet 75 mcg PO DAILY Qty: 60 0RF (DME) Handicap Parking Placard See Rx Instructions .Route .MEDSUPPLY Qty: 1 0RF Rx Instructions: As directed Eliquis 5 mg tablet 5 mg PO BID Qty: 60 12RF losartan 100 mg tablet 100 mg PO DAILY Qty: 90 3RF Primary Care Provider: Tracey Smith Referrals: Adrian Childers MD [Med Staff - Active Staff, Orthopedics] - As soon as possible Tracey Smith MD [Primary Care Provider, Internal Medicine] - As soon as possible Activity Restrictions/Additional Instructions: Follow up with the spine doctor below as soon as possible. Your evaluation in the Emergency Department did not reveal any acute reason for admission. However, I want to emphasize that you may be early in the course of a disease process or illness even if it is not present. For this reason you should follow-up within 24 hours for reevaluation with either your primary care physician or if necessary back here in the Emergency Department. You should return to the Emergency Department immediately if your symptoms worsen or new symptoms develop. Print Language: Danish Disposition Disposition: Home, Self Care Discharge Date/Time: 07/05/25 15:29
== END 2025-07-05 15:29 | disposition home or self-care (01) ==
PROVIDERS: Emergency Provider Student in an Organized Health Care Education/Training Program; PCP Internal Medicine; Visit Provider Student in an Organized Health Care Education/Training Program
DX: S80.02XA Contusion of left knee, initial encounter (principal); S60.222A Contusion of left hand, initial encounter; S00.81XA Abrasion of other part of head, initial encounter; W01.0XXA Fall on same level from slipping, tripping and stumbling without subsequent striking against object, initial encounter; M48.02 Spinal stenosis, cervical region; Z79.01 Long term (current) use of anticoagulants; Z23 Encounter for immunization
CPT/HCPCS: 70450; 72125; 73030; 73130; 73560; 90471; 90715; 99284